=== PATIENT | female | born 1980 | race Caucasian/White ===

== ENCOUNTER 2017-03-15 20:01 | Emergency (ER) | payer MEDICAID, SELFPAY ==
[2017-03-15 20:19] VITALS: BP 137/91; PULSE 105; RESP 20; TEMP 37.1; O2SAT 98; BMI 43.4
--- NOTE | 2017-03-15 20:27 | HMH.EDUTC ---
[facility] [place] Clinical Impression: Otitis media Qualifiers: Otitis media type: suppurative Chronicity: acute Laterality: right Recurrence: not specified as recurrent Spontaneous tympanic membrane rupture: without spontaneous rupture Qualified Code(s): H66.001 - Acute suppurative otitis media without spontaneous rupture of ear drum, right ear Otitis externa Qualifiers: Otitis externa type: swimmer's ear Chronicity: acute Laterality: right Qualified Code(s): H60.331 - Swimmer's ear, right ear Disposition: Home, Self-Care Condition on Discharge: Good Instructions: DI for Otitis Externa Prescriptions: Ciprofloxacin HCl [Ciprofloxacin 0.2% Otic Soln] 0.25 ml OT BID 7 Days #14 applicatio cephALEXin [Keflex 500mg Cap] 500 mg PO Q6H 10 Days #40 cap Referrals: Eric Caraballo MD [Primary Care Provider] - Medical Decision Making - Medical Records Medical records reviewed: Yes: I reviewed the patient's medical records. Vital Signs: 03/15/17 20:19 Temperature 98.8 F Temperature Source Temporal Artery Scan Pulse Rate [Brachial] 105 H Respiratory Rate 20 Blood Pressure [Right Arm] 137/91 Blood Pressure Mean [Right Arm] 106 Blood Pressure Source [Right Arm] Automatic Cuff Blood Pressure Position [Right Arm] Supine 02 Sat by Pulse Oximetry 98 Oxygen Delivery Method Room Air - Robbie Inquiry Pt receiving controlled substance: No [place] - General Stated complaint: right ear pain Time Seen by Provider: 03/15/17 20:27 Mode of Arrival: Ambulatory Source of Information: Patient Limitations: No Limitations Description of Symptoms (Recalled from Triage Doc. by RN): RT EAR PAIN HEENT Symptoms (Recalled from RN notes): Yes Resp Symptoms (Recalled from RN notes): No Skin Symptoms (Recalled from RN notes): No MS Symptoms (Recalled from RN notes): No Functional Status (Recalled from RN notes): NA - History of Present Illness Provider Complaint: Right ear pain X 3 weeks. Completed course of Amoxicillin and felt better briefly. Right ear pain recurred for the past 3-4 days and has had fevers. Swelling and pain below right ear as well. Onset (ago): week(s) (3) Location: head Associated symptoms: fever/chills, malaise Treatments prior to arrival: none - Related Data Home Medications Medication Instructions Recorded Confirmed biotin 10,000 mcg capsule mcg PO 03/15/17 carvedilol 25 mg tablet 12.5 mg PO BID tab 03/15/17 ferrous sulfate 325 mg (65 mg 325 mg PO QDAY tab 03/15/17 iron) tablet gabapentin 100 mg capsule 100 mg PO QDAY 03/15/17 levothyroxine 25 mcg tablet 25 mcg PO QDAY tab 03/15/17 lisinopril 5 mg tablet 10 mg PO QDAY 03/15/17 magnesium 200 mg tablet 200 mg PO QDAY 03/15/17 metformin 500 mg tablet 500 mg PO BID 03/15/17 rivaroxaban 20 mg tablet 20 mg PO QDAY 03/15/17 simvastatin 20 mg tablet 20 mg PO QPM 03/15/17 spironolactone 25 mg tablet 12.5 mg PO QDAY tab 03/15/17 tramadol 50 mg tablet 50 mg PO Q6H PRN 03/15/17 vitamin B12 1,000 mcg-folic acid 1 lozenge SUBLINGUAL DAILY 03/15/17 400 mcg sublingual lozenge Previous Rx's Medication Instructions Recorded Ciprofloxacin HCl [Ciprofloxacin 0.25 ml OT BID 7 Days #14 03/15/17 0.2% Otic Soln] applicatio cephALEXin [Keflex 500mg Cap] 500 mg PO Q6H 10 Days #40 cap 03/15/17 Allergies Allergy/AdvReac Type Severity Reaction Status Date / Time No Known Drug Allergies Allergy Unknown Verified 03/15/17 20:12 - Worker's Comp Is this a Worker's Comp case?: No [facility] History I have reviewed the patient's past medical history: Yes 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: Reports:: Anxiety, Diabetes Mellitus Type 2, Hyperlipidemia, Hypertension, Pulmonary Embolism Other 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: Reports: Hypothyroidism Other Surgeries: Yes: Appendectomy, Hysterectomy-Total, Other ([facility]) - *Social History Smoking Status: Never smoker Alcohol Intake: never - Psychiatric History Expresses thoughts of harming self/others: None Suicide Plan Description:
--- NOTE | 2017-03-15 20:31 | ED_ITS ---
[facility] [place] Clinical Impression: Otitis media Qualifiers: Otitis media type: suppurative Chronicity: acute Laterality: right Recurrence: not specified as recurrent Spontaneous tympanic membrane rupture: without spontaneous rupture Qualified Code(s): H66.001 - Acute suppurative otitis media without spontaneous rupture of ear drum, right ear Otitis externa Qualifiers: Otitis externa type: swimmer's ear Chronicity: acute Laterality: right Qualified Code(s): H60.331 - Swimmer's ear, right ear Disposition: Home, Self-Care Condition on Discharge: Good Instructions: DI for Otitis Externa Prescriptions: Ciprofloxacin HCl [Ciprofloxacin 0.2% Otic Soln] 0.25 ml OT BID 7 Days #14 applicatio cephALEXin [Keflex 500mg Cap] 500 mg PO Q6H 10 Days #40 cap Referrals: Eric Caraballo MD [Primary Care Provider] - Medical Decision Making - Medical Records Medical records reviewed: Yes: I reviewed the patient's medical records. Vital Signs: 03/15/17 20:19 Temperature 98.8 F Temperature Source Temporal Artery Scan Pulse Rate [Brachial] 105 H Respiratory Rate 20 Blood Pressure [Right Arm] 137/91 Blood Pressure Mean [Right Arm] 106 Blood Pressure Source [Right Arm] Automatic Cuff Blood Pressure Position [Right Arm] Supine 02 Sat by Pulse Oximetry 98 Oxygen Delivery Method Room Air - Robbie Inquiry Pt receiving controlled substance: No [facility] [place] - General Stated complaint: right ear pain Time Seen by Provider: 03/15/17 20:27 Mode of Arrival: Ambulatory Source of Information: Patient Limitations: No Limitations Description of Symptoms (Recalled from Triage Doc. by RN): RT EAR PAIN HEENT Symptoms (Recalled from RN notes): Yes Resp Symptoms (Recalled from RN notes): No Skin Symptoms (Recalled from RN notes): No MS Symptoms (Recalled from RN notes): No Functional Status (Recalled from RN notes): NA - History of Present Illness Provider Complaint: Right ear pain X 3 weeks. Completed course of Amoxicillin and felt better briefly. Right ear pain recurred for the past 3-4 days and has had fevers. Swelling and pain below right ear as well. Onset (ago): week(s) (3) Location: head Associated symptoms: fever/chills, malaise Treatments prior to arrival: none - Related Data Home Medications Medication Instructions Recorded Confirmed biotin 10,000 mcg capsule mcg PO 03/15/17 carvedilol 25 mg tablet 12.5 mg PO BID tab 03/15/17 ferrous sulfate 325 mg (65 mg 325 mg PO QDAY tab 03/15/17 iron) tablet gabapentin 100 mg capsule 100 mg PO QDAY 03/15/17 levothyroxine 25 mcg tablet 25 mcg PO QDAY tab 03/15/17 lisinopril 5 mg tablet 10 mg PO QDAY 03/15/17 magnesium 200 mg tablet 200 mg PO QDAY 03/15/17 metformin 500 mg tablet 500 mg PO BID 03/15/17 rivaroxaban 20 mg tablet 20 mg PO QDAY 03/15/17 simvastatin 20 mg tablet 20 mg PO QPM 03/15/17 spironolactone 25 mg tablet 12.5 mg PO QDAY tab 03/15/17 tramadol 50 mg tablet 50 mg PO Q6H PRN 03/15/17 vitamin B12 1,000 mcg-folic acid 1 lozenge SUBLINGUAL DAILY 03/15/17 400 mcg sublingual lozenge Previous Rx's Medication Instructions Recorded Ciprofloxacin HCl [Ciprofloxacin 0.25 ml OT BID 7 Days #14 03/15/17 0.2% Otic Soln] applicatio cephALEXin [Keflex 500mg Cap] 500 mg PO Q6H 10 Days #40 cap 03/15/17 Allerg
== END 2017-03-15 20:43 | disposition home or self-care (01) ==
PROVIDERS: Emergency Provider Physician Assistant; Family Provider Nurse Practitioner; PCP Family Medicine
DX: H66.001 Acute suppurative otitis media without spontaneous rupture of ear drum, right ear (principal); H60.331 Swimmer's ear, right ear; F41.9 Anxiety disorder, unspecified; E11.9 Type 2 diabetes mellitus without complications; I10 Essential (primary) hypertension; E03.9 Hypothyroidism, unspecified; E78.5 Hyperlipidemia, unspecified; Z79.84 Long term (current) use of oral hypoglycemic drugs; Z79.899 Other long term (current) drug therapy; Z79.01 Long term (current) use of anticoagulants; Z86.711 Personal history of pulmonary embolism; Z79.891 Long term (current) use of opiate analgesic
CPT/HCPCS: 99202

== ENCOUNTER → 2017-03-20 07:53 | Outpatient (CLI) | payer MEDICAID, SELFPAY ==
[2017-03-20 09:05] LABS: Alanine Aminotransferase 67 U/L (12-78); Albumin Level 3.8 gm/dL (3.4-5.0); Alkaline Phosphatase 169 U/L (46-116); Aspartate Amino Transferase 36 U/L (15-37); Bilirubin,Direct 0.2 mg/dL (0.0-0.2); Bilirubin,Total 0.7 mg/dL (0.2-1.0); Cholesterol 190 mg/dL (140-200); Free T4 (Free Thyroxine) 1.14 ng/dl (0.76-1.46); HDL Cholesterol 47 mg/dL (29-89); LDL Cholesterol 106 mg/dL (0-130); Thyroid Stimulating Hormone 3.63 uIU/ml (0.358-3.740); Total Protein,Serum 8.1 gm/dL (6.4-8.2); Triglycerides 185 mg/dL (30-200); VLDL Cholesterol 37 mg/dL (0-40)
[2017-03-20 09:22] LABS: Basophils # 0.1 K/mm3 (0-0.2); Basophils % 0.6 % (0.1-2.0); Eosinophils # 0.3 K/mm3 (0.0-0.4); Eosinophils % 4.2 % (0.1-12.0); Hematocrit 45.5 % (37.0-47.0); Lymphocytes # 1.9 K/mm3 (0.7-4.5); Lymphocytes % 23.5 K/mm3 (10-50); Mean Corpuscular Hemoglobin 26.6 pg (27.0-31.2); Mean Corpuscular Volume 80.7 fl (81-99); Mean Platelet Volume 7.8 fl (7.4-10.4); Monocytes # 0.6 K/mm3 (0.1-1.0); Monocytes % 7.5 % (1.7-9.3); Neutrophils # 5.2 K/mm3 (1.8-7.8); Neutrophils % 64.2 % (37.0-80.0); Platelet Count 309 K/mm3 (142-424); Red Blood Count 5.64 M/mm3 (4.20-5.40); Red Cell Distribution Width 13.3 % (11.5-17.5); White Blood Count 8.1 K/mm3 (4.8-10.8)
== END ==
PROVIDERS: PCP Family Medicine; Visit Provider Internal Medicine
DX: I44.7 Left bundle-branch block, unspecified (principal); R07.9 Chest pain, unspecified
CPT/HCPCS: 36415; 80061; 80076; 84439; 84443; 85025

== ENCOUNTER → 2017-03-21 07:46 | Outpatient (CLI) | payer MEDICAID, SELFPAY ==
--- NOTE | 2017-03-21 08:11 | CA_ITS ---
PROCEDURE: 2-D M-mode and color Doppler study INDICATIONS FOR THE TEST: Chest painx COPD Heart Murmur Tobacco Smoking Palpitations Fatigue Syncope Edema Hypertension Diabetes Mellitus Rheumatic Fever SOB KELLEY Obesity Hyperlipidemia Family History HD Additional History LBBB, CHF, Pulmonary embolism in 2011 Tech comments: Reduced EF with Global hypokinesis, dilated cardiomyopathy, left ventricular enlargement PATIENT INFORMATION HEIGHT: 5'3'' WEIGHT: 246 GENDER: Female B/P: 122/90 2-D/M-MODE INTERPRETATION: 2-D MEASUREMENTS OBSERVED VALUES IN CMS Right Ventricular Dimension (RVDd) 2.2 Interventricular Septum (Thickness)(IVsd) 0.9 Left Ventricular Internal Dimensions(LVIDd) 6.1 Left Ventricular Posterior Wall (Thickness)(LVPWd) 1.1 Aortic Root 3.0 Aortic Cusp Separation 1.9 Left Atrial Dimensions (LAD) 3.8 2D 1. Left atrium is mildly enlarged, left ventricle is mildly dilated, visually estimated ejection fraction approximately 25-30%, left ventricle appears to be globally hypokinetic. Endocardial surface of very poorly visualized. 2. The right atrium and right ventricle are normal size and contractility. 3. The aortic valve is minimally thickened and fibrosed. 4. The mitral and tricuspid valvular grossly normal. 5. The pulmonic valve is poorly visualized. 6. No significant pericardial effusion noted. DOPPLER INTERROGATION: Doppler interrogation of the aortic, mitral and tricuspid valvular presence of mild mitral and tricuspid regurgitation, tricuspid and jet velocity is insufficient for calculation of the right ventricular systolic pressure, grade 1 diastolic dysfunction seen with tissue Doppler evidence of raised left atrial pressure. CONCLUSION: 1. Technically very difficult study because of the patient's factor and poor acoustic windows, endocardial surfaces are very poorly visualized. 2. Mildly enlarged left atrium, mildly dilated left ventricle, severely reduced left ventricular systolic function, visually estimated ejection fraction 45-30%, left ventricle is globally hypokinetic. Grade 1 diastolic dysfunction seen with tissue Doppler evidence of raised left atrial pressure. 3. Mild mitral and tricuspid regurgitation. 4. No significant pericardial effusion noted.
== END ==
PROVIDERS: Family Provider Nurse Practitioner; PCP Family Medicine; Visit Provider Internal Medicine
DX: I44.7 Left bundle-branch block, unspecified (principal)
CPT/HCPCS: 93306

== ENCOUNTER → 2017-04-02 07:20 | Outpatient (CLI) | payer MEDICAID, SELFPAY ==
[2017-04-02 08:40] LABS: Anion Gap 14.1 mEq/L (5-15); Blood Urea Nitrogen 8 mg/dL (7-18); Carbon Dioxide 28 mmol/L (21.0-32.0); Chloride 100 mmol/L (98-107); Creatinine,Serum 0.65 mg/dL (0.55-1.02); Estimated Glomerular Filt Rate 103 ml/min (>60); GFR (African American) 124 ML/MIN (>60); Glucose 306 mg/dL (74-106); Potassium 4.1 mmoL/L (3.5-5.1); Sodium 138 mmol/L (136-145)
[2017-04-02 09:26] LABS: Basophils # 0.1 K/mm3 (0-0.2); Basophils % 0.4 % (0.1-2.0); Eosinophils # 0.4 K/mm3 (0.0-0.4); Eosinophils % 3.7 % (0.1-12.0); Hematocrit 41.8 % (37.0-47.0); Hemoglobin 13.6 g/dL (12.2-16.2); Lymphocytes # 2.4 K/mm3 (0.7-4.5); Lymphocytes % 22.1 K/mm3 (10-50); Mean Corpuscular HGB Conc 32.6 g/dL (31.8-35.4); Mean Corpuscular Hemoglobin 26.8 pg (27.0-31.2); Mean Corpuscular Volume 82.3 fl (81-99); Mean Platelet Volume 7.9 fl (7.4-10.4); Monocytes # 0.6 K/mm3 (0.1-1.0); Neutrophils # 7.3 K/mm3 (1.8-7.8); Neutrophils % 67.8 % (37.0-80.0); Platelet Count 300 K/mm3 (142-424); Red Blood Count 5.08 M/mm3 (4.20-5.40); Red Cell Distribution Width 13.4 % (11.5-17.5); White Blood Count 10.8 K/mm3 (4.8-10.8)
== END ==
PROVIDERS: Internal Medicine; PCP Family Medicine; Visit Provider Internal Medicine Cardiovascular Disease
DX: I42.9 Cardiomyopathy, unspecified (principal); I10 Essential (primary) hypertension
CPT/HCPCS: 36415; 80048; 83880; 85025; 93225; 93226

== ENCOUNTER → 2017-04-16 09:53 | Outpatient (CLI) | payer MEDICAID, SELFPAY ==
[2017-04-16 11:06] LABS: Anion Gap 10.9 mEq/L (5-15); Blood Urea Nitrogen 6 mg/dL (7-18); Carbon Dioxide 30 mmol/L (21.0-32.0); Chloride 100 mmol/L (98-107); Creatinine,Serum 0.61 mg/dL (0.55-1.02); Estimated Glomerular Filt Rate 110 ml/min (>60); GFR (African American) 134 ML/MIN (>60); Glucose 201 mg/dL (74-106); Potassium 3.9 mmoL/L (3.5-5.1); Sodium 137 mmol/L (136-145)
== END ==
PROVIDERS: Physician Assistant; PCP Family Medicine; Visit Provider Internal Medicine
DX: I42.9 Cardiomyopathy, unspecified (principal); R42 Dizziness and giddiness; I50.9 Heart failure, unspecified
CPT/HCPCS: 36415; 80048

== ENCOUNTER → 2017-05-24 14:59 | Outpatient (CLI) | payer MEDICAID, SELFPAY | PROVIDERS: Visit Provider Internal Medicine Cardiovascular Disease | DX: I42.0 Dilated cardiomyopathy (principal); R60.9 Edema, unspecified; I10 Essential (primary) hypertension; E78.2 Mixed hyperlipidemia; E66.01 Morbid (severe) obesity due to excess calories; Z86.711 Personal history of pulmonary embolism; I51.9 Heart disease, unspecified; R42 Dizziness and giddiness; R06.09 Other forms of dyspnea | CPT/HCPCS: 36415; 83880 ==

== ENCOUNTER → 2017-05-27 13:28 | Outpatient (CLI) | payer MEDICAID, SELFPAY ==
--- NOTE | 2017-05-27 13:31 | NM_ITS ---
NM muga Indication for the test: Coronary artery disease, obesity hypertension shortness of breath evaluate left ventricular systolic function. Procedure: Patient received total of 25.7 mCi of sodiumpretechnitate, resting MUGA scan was performed with standard view. Results: Resting cardiac MUGA scan shows an ejection fraction of 26% with left ventricular global hypokinesis.
--- NOTE | 2017-05-27 15:39 | HMH.ITSHM ---
XERELTO CARVEDILOL INTRESTO SIMVASTATIN SPIRALACTONE METFORMIN LEVOTHYROXINE GABAPENTIN TRAMADOL BYOTIN
== END ==
PROVIDERS: Family Provider Nurse Practitioner; PCP Family Medicine; Visit Provider Internal Medicine Cardiovascular Disease
DX: Z86.711 Personal history of pulmonary embolism (principal); I51.9 Heart disease, unspecified; R06.09 Other forms of dyspnea; I42.0 Dilated cardiomyopathy; R60.9 Edema, unspecified; I10 Essential (primary) hypertension; I11.9 Hypertensive heart disease without heart failure; E78.2 Mixed hyperlipidemia; E66.01 Morbid (severe) obesity due to excess calories; R42 Dizziness and giddiness
CPT/HCPCS: 78473; A9512; A9560

== ENCOUNTER → 2017-07-12 10:03 | Outpatient (CLI) | payer MEDICAID, SELFPAY ==
[2017-07-12 10:40] LABS: Anion Gap 13.4 mEq/L (5-15); Blood Urea Nitrogen 12 mg/dL (7-18); Carbon Dioxide 27 mmol/L (21.0-32.0); Chloride 98 mmol/L (98-107); Creatine Kinase 35 U/L (26-192); Creatinine,Serum 0.72 mg/dL (0.55-1.02); Estimated Glomerular Filt Rate 91 ml/min (>60); GFR (African American) 110 ML/MIN (>60); Glucose 254 mg/dL (74-106); Potassium 4.4 mmoL/L (3.5-5.1); Sodium 134 mmol/L (136-145)
== END ==
PROVIDERS: Visit Provider Internal Medicine Cardiovascular Disease
DX: I42.0 Dilated cardiomyopathy (principal)
CPT/HCPCS: 36415; 80048; 82550

== ENCOUNTER 2017-08-19 10:09 | Emergency (ER) | payer MEDICAID, SELFPAY ==
[2017-08-19 10:19] VITALS: BP 135/87; PULSE 85; RESP 20; TEMP 36.5; O2SAT 99; BMI 46.0
--- NOTE | 2017-08-19 10:23 | HMH.EDUTC ---
[facility] [place]: Otitis media Qualifiers: Otitis media type: unspecified Laterality: left Qualified Code(s): H66.92 - Otitis media, unspecified, left ear Disposition: Home, Self-Care Condition on Discharge: Good Instructions: Middle Ear Infection Additional Instructions: Take medication as prescribed Follow up with family doctor if no improvement or worsening of symptoms in next 24-48 hours Return if needed Over the counter Motrin or Tylenol as needed for pain or fever Straight to ER if any life threatening symptoms Prescriptions: Cefdinir [Omnicef 300mg Capsule] 300 mg PO BID #20 cap Referrals: Eric Caraballo MD [Primary Care Provider] - As needed Time of Disposition: 10:33 Medical Decision Making - Medical Records Medical records reviewed: Yes: I reviewed the patient's medical records. - Robbie Inquiry Pt receiving controlled substance: No Robbie was queried for this patient: No Vital Signs: 08/19/17 10:19 Temperature 97.7 F Temperature Source Temporal Artery Scan Pulse Rate [Brachial] 85 Respiratory Rate 20 Blood Pressure [Right Arm] 135/87 Blood Pressure Mean [Right Arm] 103 02 Sat by Pulse Oximetry 99 - Reevaluation(s) Time: 10:32 Reevaluation #1: Over last month and 1/2 Patient has been on both Amoxicillin and Augmentin for left otitis media and ear infection returned after completing medication. Decision to change medication Cefdir to see if this medication would work on clearing up infection due to treatment in last month [facility] [place] General Stated complaint: Left ear hurting Time Seen by Provider: 08/19/17 10:24 Mode of Arrival: Ambulatory Source of Information: Patient Limitations: No Limitations Description of Symptoms (Recalled from Triage Doc. by RN): LEFT EAR PAIN, WAS TX IN JULY FOR EAR INFECTION. HEENT Symptoms (Recalled from RN notes): Yes Resp Symptoms (Recalled from RN notes): No Skin Symptoms (Recalled from RN notes): No MS Symptoms (Recalled from RN notes): No Functional Status (Recalled from RN notes): NA - History of Present Illness Provider Complaint: Patient state that she is having pain again in her left ear State that she was diagnosed and treated around the first of July for ear infection State that she has started having pain in ear again and running a slight fever just like she did the last time she had an infection - Related Data Home Medications Medication Instructions Recorded Confirmed biotin 10,000 mcg capsule 10,000 mcg PO DAILY 03/15/17 07/28/17 levothyroxine 25 mcg tablet 25 mcg PO QDAY tab 03/15/17 07/28/17 rivaroxaban 20 mg tablet 20 mg PO QDAY 03/15/17 07/28/17 simvastatin 20 mg tablet 20 mg PO QPM 03/15/17 07/28/17 spironolactone 25 mg tablet 12.5 mg PO QDAY tab 03/15/17 07/28/17 tramadol 50 mg tablet 50 mg PO Q6H PRN 03/15/17 07/28/17 gabapentin 100 mg capsule 300 mg PO QDAY cap 03/19/17 07/28/17 metformin 500 mg tablet 500 mg PO QDAY tab 03/19/17 07/28/17 Carvedilol [Carvedilol 25mg Tab] 25 mg PO BID 06/11/17 07/28/17 Sacubitril/Valsartan [Entresto 49 1 tab PO BID 06/11/17 07/28/17 mg-51 mg Tablet] Previous Rx's Medication Instructions Recorded Cefdinir [Omnicef 300mg Capsule] 300 mg PO BID #20 cap 08/19/17 Allergies Allergy/AdvReac Type Severity Reaction Status Date / Time No Known Drug Allergies Allergy Unknown Verified 08/12/17 09:11 - Worker's Comp Is this a Worker's Comp case?: No [facility] History I have reviewed the patient's past medical history: Yes 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: Reports:: Anxiety, Diabetes Mellitus Type 2, Hyperlipidemia, Hypertension, Pulmonary Embolism Denies:: Cancer, Diabetes Mellitus Type 1, Internal Pacemaker, MRSA, Seizures Other 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: Reports: Hypothyroidism. Denies: Blood Transfusion Reaction Other Surgeries: Yes: Appendectomy, Hysterectomy-Total, Other. No: Pacemaker Amputation: No Fractures: No - Social History Smoking Status: Never smoker Alcohol Intake: nev
--- NOTE | 2017-08-19 10:29 | ED_ITS ---
[facility] [place] Clinical Impression: Otitis media Qualifiers: Otitis media type: unspecified Laterality: left Qualified Code(s): H66.92 - Otitis media, unspecified, left ear Disposition: Home, Self-Care Condition on Discharge: Good Instructions: Middle Ear Infection Additional Instructions: Take medication as prescribed Follow up with family doctor if no improvement or worsening of symptoms in next 24-48 hours Return if needed Over the counter Motrin or Tylenol as needed for pain or fever Straight to ER if any life threatening symptoms Prescriptions: Cefdinir [Omnicef 300mg Capsule] 300 mg PO BID #20 cap Referrals: Eric Caraballo MD [Primary Care Provider] - As needed Time of Disposition: 10:33 Medical Decision Making - Medical Records Medical records reviewed: Yes: I reviewed the patient's medical records. - Robbie Inquiry Pt receiving controlled substance: No Robbie was queried for this patient: No Vital Signs: 08/19/17 10:19 Temperature 97.7 F Temperature Source Temporal Artery Scan Pulse Rate [Brachial] 85 Respiratory Rate 20 Blood Pressure [Right Arm] 135/87 Blood Pressure Mean [Right Arm] 103 02 Sat by Pulse Oximetry 99 - Reevaluation(s) Time: 10:32 Reevaluation #1: Over last month and 1/2 Patient has been on both Amoxicillin and Augmentin for left otitis media and ear infection returned after completing medication. Decision to change medication Cefdir to see if this medication would work on clearing up infection due to treatment in last month [facility] [place] - General Stated complaint: Left ear hurting Time Seen by Provider: 08/19/17 10:24 Mode of Arrival: Ambulatory Source of Information: Patient Limitations: No Limitations Description of Symptoms (Recalled from Triage Doc. by RN): LEFT EAR PAIN, WAS TX IN JULY FOR EAR INFECTION. HEENT Symptoms (Recalled from RN notes): Yes Resp Symptoms (Recalled from RN notes): No Skin Symptoms (Recalled from RN notes): No MS Symptoms (Recalled from RN notes): No Functional Status (Recalled from RN notes): NA - History of Present Illness Provider Complaint: Patient state that she is having pain again in her left ear State that she was diagnosed and treated around the first of July for ear infection State that she has started having pain in ear again and running a slight fever just like she did the last time she had an infection - Related Data Home Medications Medication Instructions Recorded Confirmed biotin 10,000 mcg capsule 10,000 mcg PO DAILY 03/15/17 07/28/17 levothyroxine 25 mcg tablet 25 mcg PO QDAY tab 03/15/17 07/28/17 rivaroxaban 20 mg tablet 20 mg PO QDAY 03/15/17 07/28/17 simvastatin 20 mg tablet 20 mg PO QPM 03/15/17 07/28/17 spironolactone 25 mg tablet 12.5 mg PO QDAY tab 03/15/17 07/28/17 tramadol 50 mg tablet 50 mg PO Q6H PRN 03/15/17 07/28/17 gabapentin 100 mg capsule 300 mg PO QDAY cap 03/19/17 07/28/17 metformin 500 mg tablet 500 mg PO QDAY tab 03/19/17 07/28/17 Carvedilol [Carvedilol 25mg Tab] 25 mg PO BID 06/11/17 07/28/17 Sacubitril/Valsartan [Entresto 49 1 tab PO BID 06/11/17 07/28/17 mg-51 mg Tablet] Previous Rx's Medication Instructions Recorded Cefdinir [Omnicef 300mg Capsule] 300 mg PO BID #20 cap 08/19/17 Allergies Allergy/AdvReac Type Severity Reaction Status Date / Time No Known Drug Allergies All
[2017-08-19 10:34] VITALS: BP 135/87; PULSE 85; RESP 20; TEMP 36.5; O2SAT 99
== END 2017-08-19 10:35 | disposition home or self-care (01) ==
PROVIDERS: Emergency Provider Nurse Practitioner; Family Provider Nurse Practitioner; PCP Family Medicine
DX: H66.92 Otitis media, unspecified, left ear (principal); E11.9 Type 2 diabetes mellitus without complications; Z79.84 Long term (current) use of oral hypoglycemic drugs; I10 Essential (primary) hypertension; E78.5 Hyperlipidemia, unspecified; E03.9 Hypothyroidism, unspecified; Z86.711 Personal history of pulmonary embolism
CPT/HCPCS: 99201

== ENCOUNTER → 2017-09-10 09:19 | Outpatient (CLI) | payer MEDICAID, SELFPAY ==
[2017-09-10 11:06] LABS: Hemoglobin A1C 9.3 % (0.0-7.0)
[2017-09-10 11:30] LABS: Alanine Aminotransferase 49 U/L (12-78); Albumin Level 3.6 gm/dL (3.4-5.0); Albumin/Globulin Ratio 0.9 (1.1-1.8); Alkaline Phosphatase 147 U/L (46-116); Anion Gap 15.1 mEq/L (5-15); Aspartate Amino Transferase 18 U/L (15-37); Bilirubin,Total 0.6 mg/dL (0.2-1.0); Blood Urea Nitrogen 16 mg/dL (7-18); Calcium 9.2 mg/dL (8.5-10.1); Carbon Dioxide 26 mmol/L (21.0-32.0); Chloride 100 mmol/L (98-107); Creatinine,Serum 0.78 mg/dL (0.55-1.02); Estimated Glomerular Filt Rate 83 ml/min (>60); GFR (African American) 101 ML/MIN (>60); Glucose 275 mg/dL (74-106); Potassium 4.1 mmoL/L (3.5-5.1); Sodium 137 mmol/L (136-145); Total Protein,Serum 7.6 gm/dL (6.4-8.2)
[2017-09-10 13:52] LABS: Erythrocyte Sedimentation Rate 45 mm/hr (0-20)
[2017-09-11 16:44] LABS: PTT-LA 48.7 sec (0.0-51.9)
[2017-09-12 09:10] LABS: RA Latex Turbid. 21.4 IU/mL (0.0-13.9)
[2017-09-13 17:08] LABS: Lupus Reflex Interpretation Comment: (.)
[2017-09-14 06:20] LABS: dRVVT Confirm 2.4; dRVVT Mix 90.3
== END ==
PROVIDERS: Visit Provider Nurse Practitioner Family
DX: M25.50 Pain in unspecified joint (principal); E11.9 Type 2 diabetes mellitus without complications
CPT/HCPCS: 36415; 80053; 83036; 85613; 85651; 86431

== ENCOUNTER 2017-10-24 09:00 | Outpatient (RCR) | payer MEDICAID, SELFPAY ==
--- NOTE | 2017-09-23 08:55 | HMH.OTOPEV ---
OT Inpatient Evaluation Rehab OT Outpatient Eval Start: 09/23/17 08:45 Freq: Status: Active Protocol: Document 09/23/17 08:45 RMARSHALL (Rec: 09/23/17 08:55 [id number] Electronically Signed By Cinthia Oquendo OT 09/23/17 08:45 Outpatient Therapy Subjective History Subjective History Pt is a 36 year old female who reports to therapy for initial evaluation to right elbow. Pt informed therapist she began having pain and decreased motion/strength in March,. 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 Pt demonstrates with slight decreased AROM and Strength at right elbow as well as palpation tenderness. Pt will continue to be seen in order to address these deficits. 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 Work/Reading Driving Sleeping Recreation Activity Symptom Description Constant but Variable Level of pain today (0-10) 6 Pain scale - at its best (0-10) 3 Pain scale - at its worst (0-10) 10 Shoulder/Elbow Eval Shoulder Objective Measurements Elbow Objective Measurements Elbow ROM Right full ROM elbow exam standard left decreased ROM elbow exam standard right pain with active ROM elbow exam standard right pain with passive ROM elbow exam right standard Elbow Extension Active Range of Motion ( 0 degrees degrees) Elbow Flexion Active Range of Motion ( 115 degrees degrees) Elbow Pronation of Forearm Range of 90 degrees Motion (degrees) Elbow Supination of Forearm Range of 90 degrees Motion (degrees) Left full ROM elbow exam standard left decrease
== END 2017-10-24 09:01 | disposition home or self-care (01) ==
LOC: OT 09:00
PROVIDERS: Family Provider Nurse Practitioner; PCP Family Medicine; Visit Provider Nurse Practitioner Family
DX: M70.21 Olecranon bursitis, right elbow (principal)
CPT/HCPCS: 97033; 97035; 97140; 97166

== ENCOUNTER → 2017-11-18 09:45 | Outpatient (POV) | payer OTHER, MEDICAID, SELFPAY ==
[2017-11-18 09:52] VITALS: BP 106/61; PULSE 92; RESP 18; O2SAT 98
--- NOTE | 2017-11-18 10:29 | XR_ITS ---
XR elbow RT min 3V HISTORY: Injury with pain ITS.REASON: ELBOW PAIN ORDERING PHYSICIAN: Taniya Choudhary PATIENT AGE: 37 years COMPARISON: None FINDINGS: BONY STRUCTURES: No fracture or dislocation. No lytic or blastic change. Normal mineralization. SOFT TISSUES: Unremarkable. No radio opaque foreign bodies. No displaced fat pad. JOINT SPACE: Well-preserved. No significant arthritic changes evident. IMPRESSION: Negative elbow.
--- NOTE | 2017-11-18 12:26 | HMH.PMCON ---
Assessment and Plan (1) Epicondylitis Current visit: Yes Status: Chronic Category: Medical - Assessment and plan all Dx Assessment and Plan for all problems:: We will send the patient for an x-ray today. We will also set her up for an epicondyle injection. I will follow-up with the patient after her injection. This note was dictated using voice recognition software and may contain errors or omissions HPI - Data of Consult Consult date: 11/18/17 Requesting Physician: Taniya Choudhary APRN Primary Care Provider: Eric Caraballo MD Family Provider: Michelle Kahn - Consult Narrative Reason for consult: Right elbow pain History of present illness: Ms. Smith is a 37 year old female since today for consultation in regards to her right elbow pain. Patient states her pain today as a 5 out of 10. Patient states lifting makes pain worse while resting decreases the pain. Patient's tried and failed physical therapy with massage therapy and bracing. Patient states she is tried and failed anti-inflammatories for several months. Patient states that the pain is on the outside of her elbow. All movement makes it worse. Patient does have some noted swelling in this area. Patient does not remember any trauma or repetitive motion that could have caused this. Patient is on Xarelto. Patient has a pacemaker/defibrillator. Patient interested in injective therapy. CC: Taniya Choudhary APRN [facility] History I have reviewed the patient's past medical history: Yes 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: Reports:: Anxiety, Arrhythmia, Diabetes Mellitus Type 2, Hyperlipidemia, Hypertension, Internal Pacemaker, Palpitations, Pulmonary Embolism Denies:: Cancer, Diabetes Mellitus Type 1, MRSA, Seizures Other 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: Reports: Hypothyroidism. Denies: Blood Transfusion Reaction Other Surgeries: Yes: Appendectomy, Hysterectomy-Total, Pacemaker, Other Amputation: No Fractures: No - *Social History Smoking Status: Never smoker Alcohol Intake: never Alcohol Intake Frequency:: other Occupational Status: other Housing: house Household Members: spouse - Psychiatric History Expresses thoughts of harming self/others: None Suicide Plan Description: No Plan Pschychiatric History:: Reports:: Anxiety *Family Hx:: Diabetes, Hypertension Review of Systems - Review of Systems ROS General: no recent weight change, no fever, no sleep disturbances Respiratory: no cough, no shortness of air, no recurring pulmonary infections Cardiovascular/Peripheral Vascular: No chest pain, No palpitations, no edema, no shortness of breath. Gastrointestinal: no incontinence, normal bowel movements reported Genitourinary: no incontinence Musculoskeletal: Elbow pain right side Psychiatric: normal mood/ affect, Neurological: [denies weakness in extremities], [denies balance issues] Meds Home Medications Medication Instructions Recorded Confirmed Type biotin 10,000 mcg capsule 10,000 mcg PO DAILY 03/15/17 07/28/17 History levothyroxine 25 mcg tablet 25 mcg PO QDAY tab 03/15/17 07/28/17 History rivaroxaban 20 mg tablet 20 mg PO QDAY 03/15/17 07/28/17 History simvastatin 20 mg tablet 20 mg PO QPM 03/15/17 07/28/17 History spironolactone 25 mg tablet 12.5 mg PO QDAY tab 03/15/17 07/28/17 History tramadol 50 mg tablet 50 mg PO Q6H PRN 03/15/17 07/28/17 History gabapentin 100 mg capsule 300 mg PO QDAY cap 03/19/17 07/28/17 History Carvedilol [Carvedilol 25mg Tab] 25 mg PO BID 06/11/17 07/28/17 History metformin 500 mg tablet 1,000 mg PO QDAY tab 10/21/17 History sitagliptin 100 mg tablet 100 mg PO DAILY 10/21/17 History Allergies Allergy/AdvReac Type Severity Reaction Status Date / Time No Known Drug Allergies Allergy Unknown Verified 10/21/17 09:10 Objective Vital signs: Pulse Resp BP Pulse Ox 92 H 18 106/61 98 11/18/17 09:52 11/18/17 09:52 11/18/17 09:52 11/18/17 09:52 Narrative: Physical Exam General: Alert an
--- NOTE | 2017-11-18 12:29 | P.CONS_ITS ---
Assessment and Plan (1) Epicondylitis Current visit: Yes Status: Chronic Category: Medical - Assessment and plan all Dx Assessment and Plan for all problems:: We will send the patient for an x-ray today. We will also set her up for an epicondyle injection. I will follow-up with the patient after her injection. This note was dictated using voice recognition software and may contain errors or omissions HPI - Data of Consult Consult date: 11/18/17 Requesting Physician: Taniya Choudhary APRN Primary Care Provider: Eric Caraballo MD Family Provider: Michelle Kahn - Consult Narrative Reason for consult: Right elbow pain History of present illness: Ms. Smith is a 37 year old female since today for consultation in regards to her right elbow pain. Patient states her pain today as a 5 out of 10. Patient states lifting makes pain worse while resting decreases the pain. Patient's tried and failed physical therapy with massage therapy and bracing. Patient states she is tried and failed anti-inflammatories for several months. Patient states that the pain is on the outside of her elbow. All movement makes it worse. Patient does have some noted swelling in this area. Patient does not remember any trauma or repetitive motion that could have caused this. Patient is on Xarelto. Patient has a pacemaker/defibrillator. Patient interested in injective therapy. CC: Taniya Choudhary APRN [facility] History I have reviewed the patient's past medical history: Yes 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: Reports:: Anxiety, Arrhythmia, Diabetes Mellitus Type 2, Hyperlipidemia, Hypertension, Internal Pacemaker, Palpitations, Pulmonary Embolism Denies:: Cancer, Diabetes Mellitus Type 1, MRSA, Seizures Other 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: Reports: Hypothyroidism. Denies: Blood Transfusion Reaction Other Surgeries: Yes: Appendectomy, Hysterectomy-Total, Pacemaker, Other Amputation: No Fractures: No - *Social History Smoking Status: Never smoker Alcohol Intake: never Alcohol Intake Frequency:: other Occupational Status: other Housing: house Household Members: spouse - Psychiatric History Expresses thoughts of harming self/others: None Suicide Plan Description: No Plan Pschychiatric History:: Reports:: Anxiety *Family Hx:: Diabetes, Hypertension Review of Systems - Review of Systems ROS General: no recent weight change, no fever, no sleep disturbances Respiratory: no cough, no shortness of air, no recurring pulmonary infections Cardiovascular/Peripheral Vascular: No chest pain, No palpitations, no edema, no shortness of breath. Gastrointestinal: no incontinence, normal bowel movements reported Genitourinary: no incontinence Musculoskeletal: Elbow pain right side Psychiatric: normal mood/ affect, Neurological: [denies weakness in extremities], [denies balance issues] Meds Home Medications Medication Instructions Recorded Confirmed Type biotin 10,000 mcg capsule 10,000 mcg PO DAILY 03/15/17 07/28/17 History levothyroxine 25 mcg tablet 25 mcg PO QDAY tab 03/15/17 07/28/17 History rivaroxaban 20 mg tablet 20 mg PO QDAY 03/15/17 07/28/17 History simvastatin 20 mg tablet 20 mg PO QPM 03/15/17 07/28/17 History spironolactone 25 mg tablet 12.5 mg PO QDAY tab 03/15/17 07/28/17 History tramadol 50 mg tablet 50 mg PO Q6H PRN 03/15/17 07/28/17 History gabapentin 100 mg capsule 300 mg PO QDAY cap 03/19/17 07/28/17 History Carvedilol [Carvedilo
== END ==
PROVIDERS: Family Provider Nurse Practitioner; PCP Family Medicine; Visit Provider Clinical Nurse Specialist Family Health
DX: M77.11 Lateral epicondylitis, right elbow (principal)
CPT/HCPCS: 73080; 99202

== ENCOUNTER → 2017-12-31 09:19 | Outpatient (POV) | payer BC, MEDICAID, SELFPAY ==
[2017-12-31 09:26] VITALS: BP 100/60; PULSE 79; RESP 18; O2SAT 98; BMI 44.1
--- NOTE | 2017-12-31 09:50 | HMH.PAINSOAP ---
[facility] Pain Management SOAP Note Subjective:: Patient is a pleasant 37-year-old white female who we are treating for right elbow pain. Patient received a epicondylar injection. Patient did not get much relief from this. Patient actually had another not appear in this area. Patient is still having a lot of numbness and tingling and burning in the area. Patient's x-ray was negative. We will send her for a CT scan. Patient unable to do an MRI due to her pacemaker. We will also try her on a compounding cream. She rates her pain a 6 out of 10. ROS General: no recent weight change, no fever, no sleep disturbances Respiratory: no cough, no shortness of air, no recurring pulmonary infections Cardiovascular/Peripheral Vascular: No chest pain, No palpitations, no edema, no shortness of breath. Gastrointestinal: no incontinence, normal bowel movements reported Genitourinary: no incontinence Musculoskeletal: Right elbow pain Psychiatric: normal mood/ affect Neurological: [denies weakness in extremities], [denies balance issues] Objective:: Physical Exam General: Alert and oriented x3, no acute distress, pleasant and cooperative, [on room air] Lungs: Resps E/U, Symmetrical chest expansion, Eyes: PERRL Musculoskeletal: Range of motion right elbow somewhat guarded secondary to pain, deep tendon reflexes normal, strength in upper and lower extremities [5/5], normal gait noted Neurological: speech clear, senior instructor equal, no gross sensory deficits Assessment:: Epicondylitis Plan:: We will send the patient for a CT scan of her right elbow. I will follow-up with her after this. We will also order compounded cream to see if this is beneficial to her. Patient's been instructed to call the office if she has any issues prior to next appointment. This note was dictated using voice recognition software and may contain errors or omissions
--- NOTE | 2017-12-31 09:53 | P.CONS_ITS ---
[facility] Pain Management SOAP Note Subjective:: Patient is a pleasant 37-year-old white female who we are treating for right elbow pain. Patient received a epicondylar injection. Patient did not get much relief from this. Patient actually had another not appear in this area. Patient is still having a lot of numbness and tingling and burning in the area. Patient's x-ray was negative. We will send her for a CT scan. Patient unable to do an MRI due to her pacemaker. We will also try her on a compounding cream. She rates her pain a 6 out of 10. ROS General: no recent weight change, no fever, no sleep disturbances Respiratory: no cough, no shortness of air, no recurring pulmonary infections Cardiovascular/Peripheral Vascular: No chest pain, No palpitations, no edema, no shortness of breath. Gastrointestinal: no incontinence, normal bowel movements reported Genitourinary: no incontinence Musculoskeletal: Right elbow pain Psychiatric: normal mood/ affect Neurological: [denies weakness in extremities], [denies balance issues] Objective:: Physical Exam General: Alert and oriented x3, no acute distress, pleasant and cooperative, [on room air] Lungs: Resps E/U, Symmetrical chest expansion, Eyes: PERRL Musculoskeletal: Range of motion right elbow somewhat guarded secondary to pain, deep tendon reflexes normal, strength in upper and lower extremities [5/5], normal gait noted Neurological: speech clear, line patroller equal, no gross sensory deficits Assessment:: Epicondylitis Plan:: We will send the patient for a CT scan of her right elbow. I will follow-up with her after this. We will also order compounded cream to see if this is b eneficial to her. Patient's been instructed to call the office if she has any issues prior to next appointment. This note was dictated using voice recognition software and may contain errors or omissions
== END ==
PROVIDERS: PCP Family Medicine; Visit Provider Clinical Nurse Specialist Family Health
DX: M77.11 Lateral epicondylitis, right elbow (principal)
CPT/HCPCS: 99213

== ENCOUNTER → 2018-01-20 10:06 | Outpatient (CLI) | payer BC, SELFPAY ==
[2018-01-20 11:32] LABS: Anion Gap 16.9 mEq/L (5-15); Blood Urea Nitrogen 8 mg/dL (7-18); Calcium 9.2 mg/dL (8.5-10.1); Carbon Dioxide 24 mmol/L (21.0-32.0); Chloride 100 mmol/L (98-107); Creatinine,Serum 0.63 mg/dL (0.55-1.02); Estimated Glomerular Filt Rate 106 ml/min (>60); GFR (African American) 128 ML/MIN (>60); Glucose 141 mg/dL (74-106); Potassium 3.9 mmoL/L (3.5-5.1); Sodium 137 mmol/L (136-145)
== END ==
PROVIDERS: Visit Provider Urology
DX: R06.09 Other forms of dyspnea (principal); I42.0 Dilated cardiomyopathy; E11.8 Type 2 diabetes mellitus with unspecified complications; E66.01 Morbid (severe) obesity due to excess calories; E78.2 Mixed hyperlipidemia; I10 Essential (primary) hypertension; I11.9 Hypertensive heart disease without heart failure; I51.9 Heart disease, unspecified; R00.2 Palpitations; R42 Dizziness and giddiness; R60.9 Edema, unspecified; Z86.711 Personal history of pulmonary embolism; Z95.810 Presence of automatic (implantable) cardiac defibrillator
CPT/HCPCS: 36415; 80048; 83880

== ENCOUNTER → 2018-01-22 07:13 | Outpatient (CLI) | payer BC, SELFPAY ==
--- NOTE | 2018-01-22 07:19 | CA_ITS ---
PROCEDURE: 2-D M-mode and color Doppler study INDICATIONS FOR THE TEST: Chest pain COPD Heart Murmur Tobacco Smoking Palpitations+ Fatigue Syncope Edema Hypertension+Diabetes Mellitus+ Rheumatic Fever SOB+KELLEY+Obesity+Hyperlipidemia+ Family History HD Additional History ICD PATIENT INFORMATION HEIGHT: 63 WEIGHT:263 GENDER: Female B/P:117/61 2-D/M-MODE INTERPRETATION: 2-D MEASUREMENTS OBSERVED VALUES IN CMS Right Ventricular Dimension (RVDd) 2.2 Interventricular Septum (Thickness)(IVsd) 1.0 Left Ventricular Internal Dimensions(LVIDd) 5.0 Left Ventricular Posterior Wall (Thickness)(LVPWd) 0.9 Aortic Root 3.2 Aortic Cusp Separation 2.0 Left Atrial Dimensions (LAD) 3.4 2D 1. Left atrium is mildly enlarged, left ventricle is normal size, mild concentric left ventricular hypertrophy, visually estimated ejection fraction approximately 45-50% with no regional wall motion abnormality, there is abnormal septal motion, endocardial surfaces are poorly visualized. 2. The right atrium and right ventricle are normal size and contractility, there is an ICD lead seen in the right ventricle. 3. The aortic valve is minimally thickened and fibrosed. 4. The mitral and tricuspid valvular grossly normal. 5. The pulmonic valve is poorly visualized. 6. No significant pericardial effusion noted DOPPLER INTERROGATION: Doppler interrogation of the aortic, mitral and tricuspid valvular presence of mild mitral and tricuspid regurgitation, calculated right ventricular systolic pressure is 40 mmHg consistent with mild pulmonary hypertension, diastolic parameters are inconclusive. CONCLUSION: 1. Mildly left atrium, normal left ventricular size, mild concentric left ventricular hypertrophy, visually estimated ejection fraction of 45-50%, there is abnormal septal motion, diastolic parameters are inconclusive. 2. Mild mitral and tricuspid regurgitation, calculated right ventricular systolic pressure is 40 mmHg consistent with mild pulmonary hypertension. 3. No significant pericardial effusion noted.
== END ==
PROVIDERS: PCP Family Medicine; Visit Provider Internal Medicine
DX: R06.00 Dyspnea, unspecified (principal); I42.0 Dilated cardiomyopathy; E11.8 Type 2 diabetes mellitus with unspecified complications; E66.01 Morbid (severe) obesity due to excess calories; E78.2 Mixed hyperlipidemia; I10 Essential (primary) hypertension; I11.9 Hypertensive heart disease without heart failure; I51.9 Heart disease, unspecified; R00.2 Palpitations; R42 Dizziness and giddiness; R60.9 Edema, unspecified; Z86.711 Personal history of pulmonary embolism; Z95.810 Presence of automatic (implantable) cardiac defibrillator
CPT/HCPCS: 93306

== ENCOUNTER → 2018-01-28 09:40 | Outpatient (POV) | payer BC, SELFPAY ==
[2018-01-28 10:09] VITALS: BP 140/66; PULSE 95; RESP 18; O2SAT 98; BMI 44.2
--- NOTE | 2018-01-28 10:30 | HMH.PAINSOAP ---
[facility] Pain Management SOAP Note Subjective:: Patient is a pleasant 37-year-old white female who we are treating for right elbow pain. Patient has had an epicondylar injection with no relief. Patient is having worsening pain radiating down her forearm and up into her bicep at times. I have some concerns in regards to her ulnar nerve. Patient needs a CT scan due to her inability to get an MRI because of her pacemaker. Patient is on compounding cream she states it takes the edge off however it did not help significantly with her pain. Patient's x-rays are negative. I will have some concerns of potential cysts in her forearm. Patient has tried and failed 6-8 weeks of physical therapy. Patient is continuing to do home stretching exercises. Patient's been on and failed anti-inflammatories, narcotic medications. She rates her pain today a 6 out of 10. ROS General: no recent weight change, no fever, no sleep disturbances Respiratory: no cough, no shortness of air, no recurring pulmonary infections Cardiovascular/Peripheral Vascular: No chest pain, No palpitations, no edema, no shortness of breath. Gastrointestinal: no incontinence, normal bowel movements reported Genitourinary: no incontinence Musculoskeletal: Right elbow pain Psychiatric: normal mood/ affect, Neurological: Weakness in right upper extremity at times, [denies balance issues] Objective:: Physical Exam General: Alert and oriented x3, no acute distress, pleasant and cooperative, [on room air] Lungs: Resps E/U, Symmetrical chest expansion, [CTA bilateral] Eyes: PERRL Musculoskeletal: Range of motion right arm guarded secondary to pain, deep tendon reflexes normal, strength in upper and lower extremities [5/5], [abnormal gait noted] Neurological: speech clear, left c d reactor operator greater than right c d reactor operator , no gross sensory deficits Assessment:: Right elbow pain Plan:: We will send her for CT scan to determine any possible cysts or issues with her ulnar nerve. Patient is unable to have an MRI due to her pacemaker. I will follow-up with her after the CT scan. This note was dictated using voice recognition software and may contain errors or omissions
--- NOTE | 2018-01-28 10:47 | P.CONS_ITS ---
[facility] Pain Management SOAP Note Subjective:: Patient is a pleasant 37-year-old white female who we are treating for right elbow pain. Patient has had an epicondylar injection with no relief. Patient is having worsening pain radiating down her forearm and up into her bicep at times. I have some concerns in regards to her ulnar nerve. Patient needs a CT scan due to her inability to get an MRI because of her pacemaker. Patient is on compounding cream she states it takes the edge off however it did not help significantly with her pain. Patient's x-rays are negative. I will have some concerns of potential cysts in her forearm. Patient has tried and failed 6-8 weeks of physical therapy. Patient is continuing to do home stretching exer cises. Patient's been on and failed anti-inflammatories, narcotic medications. She rates her pain today a 6 out of 10. ROS General: no recent weight change, no fever, no sleep disturbances Respiratory: no cough, no shortness of air, no recurring pulmonary infections Cardiovascular/Peripheral Vascular: No chest pain, No palpitations, no edema, no shortness of breath. Gastrointestinal: no incontinence, normal bowel movements reported Genitourinary: no incontinence Musculoskeletal: Right elbow pain Psychiatric: normal mood/ affect, Neurological: Weakness in right upper extremity at times, [denies balance issues] Objective:: Physical Exam General: Alert and oriented x3, no acute distress, pleasant and cooperative, [on room air] Lungs: Resps E/U, Symmetrical chest expansion, [CTA bilateral] Eyes: PERRL Musculoskeletal: Range of motion right arm guarded secondary to pain, deep tendon reflexes normal, strength in upper and lower extremities [5/5], [abnormal gait noted] Neurological: speech clear, left child protective investigator greater than right child protective investigator , no gross sensory deficits Assessment:: Right elbow pain Plan:: We will send her for CT scan to determine any possible cysts or issues with her ulnar nerve. Patient is unable to have an MRI due to her pacemaker. I will follow-up with her after the CT scan. This note was dictated using voice recognition software and may contain errors or omissions
== END ==
PROVIDERS: PCP Family Medicine; Visit Provider Clinical Nurse Specialist Family Health
DX: M25.521 Pain in right elbow (principal)
CPT/HCPCS: 99213

== ENCOUNTER → 2018-02-28 07:19 | Outpatient (CLI) | payer BC, SELFPAY | PROVIDERS: PCP Family Medicine; Visit Provider Clinical Nurse Specialist Family Health | DX: M25.521 Pain in right elbow (principal) ==

== ENCOUNTER → 2018-03-03 08:27 | Outpatient (CLI) | payer BC, SELFPAY ==
--- NOTE | 2018-03-03 08:29 | CT_ITS ---
CT elbow RT wo con INDICATION: ITS.REASON: RT ALBOW/ARM PAIN, 2 palpable areas in the right elbow marked with BBs ORDERING PHYSICIAN: Sebas Rivera MD PATIENT AGE: 37 years COMPARISON: None TECHNIQUE: Axial images are obtained without contrast. Sagittal and coronal reformatted images are reviewed as well. All CT scans at the facility use one or more dose reduction, viz: automated exposure control, ma/kV adjustment per patient size (including targeted exams where dose is matched to indication, i.e. head), or iterative reconstruction technique. FINDINGS: No bony or soft tissue mass is evident. There are BBs placed along the lateral aspect of the elbow. No soft tissue masses are evident the to the placed BB's. Specifically the muscles and subcutaneous tissues have an unremarkable appearance in these areas. No blastic or lytic process evident. No fracture or dislocation. The joint has an unremarkable appearance. No obvious effusion. IMPRESSION: Negative CT of the right elbow
== END ==
PROVIDERS: PCP Family Medicine; Visit Provider Anesthesiology
DX: M25.521 Pain in right elbow (principal)
CPT/HCPCS: 73200

== ENCOUNTER → 2018-03-11 09:46 | Outpatient (POV) | payer BC, SELFPAY ==
[2018-03-11 10:08] VITALS: BP 106/70; PULSE 93; RESP 18; O2SAT 98; BMI 44.1
--- NOTE | 2018-03-11 10:35 | HMH.PAINSOAP ---
[facility] Pain Management SOAP Note Subjective:: Pleasant 37-year-old white female who presents today for follow-up after CT of her right elbow. Patient is still having pain she rates an 8 out of 10. Patient and I had a long discussion in regards to the potential cause. I believe she may have some radial nerve syndrome. Patient has pain when extending the arm and flexing up the wrist along with pain holding onto something with an extended arm. When the radial nerve is compressed she has pain. Patient x-rays and CT scans have been fine there is no sign symptoms of tumors or any soft tissue swelling. Patient has seen Orth O in the past however was told that she had nothing to do surgery on. ROS General: no recent weight change, no fever, no sleep disturbances Respiratory: no cough, no shortness of air, no recurring pulmonary infections Cardiovascular/Peripheral Vascular: No chest pain, No palpitations, no edema, no shortness of breath. Gastrointestinal: no incontinence, normal bowel movements reported Genitourinary: no incontinence Musculoskeletal: Right elbow pain Psychiatric: normal mood/ affect Neurological: [denies weakness in extremities], [denies balance issues] Objective:: Physical Exam General: Alert and oriented x3, no acute distress, pleasant and cooperative, [on room air] Lungs: Resps E/U, Symmetrical chest expansion, Eyes: PERRL Musculoskeletal: Range of motion right elbow somewhat guarded secondary to pain, deep tendon reflexes normal, strength in upper and lower extremities [5/5], normal gait noted Neurological: speech clear, stand up comedian equal, no gross sensory deficits Assessment:: Right elbow pain Plan:: We will send her to occupational therapy along with a specialist who can determine if she has radial tunnel syndrome.. I will follow-up with her after this. This note was dictated using voice recognition software and may contain errors or omissions
--- NOTE | 2018-03-11 10:39 | P.CONS_ITS ---
[facility] Pain Management SOAP Note Subjective:: Pleasant 37-year-old white female who presents today for follow-up after CT of her right elbow. Patient is still having pain she rates an 8 out of 10. Patient and I had a long discussion in regards to the potential cause. I believe she may have some radial nerve syndrome. Patient has pain when exte nding the arm and flexing up the wrist along with pain holding onto something with an extended arm. When the radial nerve is compressed she has pain. Patient x-rays and CT scans have been fine there is no sign symptoms of tumors or any soft tissue swelling. Patient has seen Orth O in the past however was told that she had nothing to do surgery on. ROS General: no recent weight change, no fever, no sleep disturbances Respiratory: no cough, no shortness of air, no recurring pulmonary infections Cardiovascular/Peripheral Vascular: No chest pain, No palpitations, no edema, no shortness of breath. Gastrointestinal: no incontinence, normal bowel movements reported Genitourinary: no incontinence Musculoskeletal: Right elbow pain Psychiatric: normal mood/ affect Neurological: [denies weakness in extremities], [denies balance issues] Objective:: Physical Exam General: Alert and oriented x3, no acute distress, pleasant and cooperative, [on room air] Lungs: Resps E/U, Symmetrical chest expansion, Eyes: PERRL Musculoskeletal: Range of motion right elbow somewhat guarded secondary to pain, deep tendon reflexes normal, strength in upper and lower extremities [5/5], normal gait noted Neurological: speech clear, toe stripper equal, no gross sensory deficits Assessment:: Right elbow pain Plan:: We will send her to occupational therapy along with a specialist who can determine if she has radial tunnel syndrome.. I will follow-up with her after this. This note was dictated using voice recognition software and may contain errors or omissions
== END ==
PROVIDERS: PCP Family Medicine; Visit Provider Clinical Nurse Specialist Family Health
DX: M25.521 Pain in right elbow (principal)
CPT/HCPCS: 99213

== ENCOUNTER 2018-04-18 10:00 | Outpatient (RCR) | payer BC, SELFPAY ==
--- NOTE | 2018-03-14 10:52 | HMH.OTOPEV ---
OT Inpatient Evaluation Rehab OT Outpatient Eval Start: 03/14/18 10:29 Freq: Status: Active Protocol: Document 03/14/18 10:29 RMARSHALL (Rec: 03/14/18 10:52 [id number] Electronically Signed By Cinthia Padilla OT 03/14/18 10:29 Outpatient Therapy Subjective History Subjective History Pt is a 37 year old female reporting to therapy for evaluation to right UE. Pt was seen previously by therapist in October 2017 for right CTS and possible Lateral epicondylitis. Pt reports her pain began in August 2017 and has gradually become worse over time. Pt is now have pain above her elbow, into the shoulder and neck. Pt does demonstrate with decreased AROM at right shoulder, elbow and wrist as well as decreased strength. 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 Pt explains she is going to see [facility] next Saturday. Pt will continue to be seen twice a week in order to address these deficits. Right Shoulder AROM STG Flex: 155 degrees Abd: 160 degrees ER: 80 degrees IR: 6 degrees Right Shoulder MMT ST,4+/5 Right Shoulder MMT LT/5 Right Shoulder AROM LTG Flex: 170 degrees Abd: 170 degrees ER: 90 degrees IR: 80 degrees Right elbow AROM STG Flex: 120 degrees Sup: 75 degrees Right elbow AROM LTG Flex: 135 degrees Sup: 90 degrees Right elbow MMT ST,4+/5 Right elobw MMT LT/5 Right wrist AROM STG Flex: 45 degrees Ext: 45 degrees
== END 2018-04-18 10:05 | disposition home or self-care (01) ==
LOC: OT 10:00
PROVIDERS: Visit Provider Clinical Nurse Specialist Family Health
DX: G56.31 Lesion of radial nerve, right upper limb (principal)
CPT/HCPCS: 97035; 97110; 97140; 97166

== ENCOUNTER → 2018-05-08 10:38 | Outpatient (CLI) | payer BC, SELFPAY ==
[2018-05-08 11:45] LABS: Basophils # 0.1 K/mm3 (0-0.2); Basophils % 0.4 % (0.1-2.0); Eosinophils # 0.4 K/mm3 (0.0-0.4); Eosinophils % 3.2 % (0.1-12.0); Hematocrit 39.9 % (37.0-47.0); Hemoglobin 13.2 g/dL (12.2-16.2); Lymphocytes # 2.2 K/mm3 (0.7-4.5); Lymphocytes % 18.1 % (10-50); Mean Corpuscular HGB Conc 33.2 g/dL (31.8-35.4); Mean Corpuscular Hemoglobin 27.6 pg (27.0-31.2); Mean Corpuscular Volume 83.2 fl (81-99); Mean Platelet Volume 7.2 fl (7.4-10.4); Monocytes # 0.6 K/mm3 (0.1-1.0); Monocytes % 4.9 % (1.7-9.3); Neutrophils # 8.8 K/mm3 (1.8-7.8); Neutrophils % 73.3 % (37.0-80.0); Platelet Count 295 K/mm3 (142-424); Red Blood Count 4.79 M/mm3 (4.20-5.40); Red Cell Distribution Width 13.3 % (11.5-17.5)
[2018-05-08 12:16] LABS: Anion Gap 16.1 mEq/L (5-15); Blood Urea Nitrogen 9 mg/dL (7-18); Calcium 9.4 mg/dL (8.5-10.1); Carbon Dioxide 25 mmol/L (21.0-32.0); Chloride 101 mmol/L (98-107); Creatinine,Serum 0.56 mg/dL (0.55-1.02); Estimated Glomerular Filt Rate 121 ml/min (>60); GFR (African American) 147 ML/MIN (>60); Glucose 89 mg/dL (74-106); Potassium 4.1 mmoL/L (3.5-5.1); Sodium 138 mmol/L (136-145)
== END ==
PROVIDERS: Visit Provider Orthopaedic Surgery
DX: Z01.818 Encounter for other preprocedural examination (principal); G56.01 Carpal tunnel syndrome, right upper limb
CPT/HCPCS: 36415; 80048; 85025

== ENCOUNTER → 2018-08-13 10:37 | Outpatient (CLI) | payer BC, SELFPAY ==
[2018-08-13 11:00] LABS: Basophils % 0.4 % (0.1-2.0); Eosinophils # 0.3 K/mm3 (0.0-0.4); Eosinophils % 2.6 % (0.1-12.0); Hematocrit 38.6 % (37.0-47.0); Hemoglobin 12.4 g/dL (12.2-16.2); Lymphocytes # 1.2 K/mm3 (0.7-4.5); Lymphocytes % 11.6 % (10-50); Mean Platelet Volume 7.4 fl (7.4-10.4); Monocytes # 0.6 K/mm3 (0.1-1.0); Monocytes % 5.2 % (1.7-9.3); Neutrophils # 8.5 K/mm3 (1.8-7.8); Neutrophils % 80.3 % (37.0-80.0); Platelet Count 268 K/mm3 (142-424); Red Blood Count 4.95 M/mm3 (4.20-5.40); Red Cell Distribution Width 13.1 % (11.5-17.5); White Blood Count 10.6 K/mm3 (4.8-10.8)
[2018-08-13 12:48] LABS: Alanine Aminotransferase 44 U/L (12-78); Albumin Level 3.6 gm/dL (3.4-5.0); Alkaline Phosphatase 116 U/L (46-116); Anion Gap 15.3 mEq/L (5-15); Aspartate Amino Transferase 16 U/L (15-37); Bilirubin,Total 0.6 mg/dL (0.2-1.0); Blood Urea Nitrogen 8 mg/dL (7-18); Calcium 8.9 mg/dL (8.5-10.1); Carbon Dioxide 27 mmol/L (21.0-32.0); Chloride 101 mmol/L (98-107); Creatinine,Serum 0.74 mg/dL (0.55-1.02); Estimated Glomerular Filt Rate 88 ml/min (>60); GFR (African American) 106 ML/MIN (>60); Globulin 3.5 gm/dl (1.3-3.2); Glucose 103 mg/dL (74-106); Potassium 4.3 mmoL/L (3.5-5.1); Sodium 139 mmol/L (136-145); Total Protein,Serum 7.1 gm/dL (6.4-8.2)
== END ==
PROVIDERS: Visit Provider Internal Medicine Rheumatology
DX: M19.90 Unspecified osteoarthritis, unspecified site (principal)
CPT/HCPCS: 36415; 80053; 85025

== ENCOUNTER → 2018-09-15 09:18 | Outpatient (CLI) | payer BC, SELFPAY ==
--- NOTE | 2018-09-15 09:30 | XR_ITS ---
XR chest 2V HISTORY: ITS.REASON: CHEST PAIN ORDERING PHYSICIAN: Alena Reed APRN PATIENT AGE: 37 years COMPARISON: 10/18/2015. FINDINGS: The cardiomediastinal silhouette and pulmonary vascularity are within normal limits. The lungs are clear without infiltrates, suspicious nodules, or pleural effusions. There is a stable right upper lobe benign calcified granuloma. No acute bony abnormalities. IMPRESSION: No acute process and no significant change. Cardiac pacemaker is now present.
[2018-09-15 10:07] LABS: Troponin I < 0.02 ng/ml (0.00-0.06)
[2018-09-15 10:12] LABS: Basophils % 0.4 % (0.1-2.0); Eosinophils # 0.3 K/mm3 (0.0-0.4); Eosinophils % 3.2 % (0.1-12.0); Hematocrit 39.9 % (37.0-47.0); Hemoglobin 12.7 g/dL (12.2-16.2); Lymphocytes # 1.7 K/mm3 (0.7-4.5); Lymphocytes % 17.7 % (10-50); Mean Corpuscular HGB Conc 31.8 g/dL (31.8-35.4); Mean Corpuscular Hemoglobin 25.2 pg (27.0-31.2); Mean Corpuscular Volume 79.5 fl (81-99); Monocytes # 0.4 K/mm3 (0.1-1.0); Monocytes % 4.4 % (1.7-9.3); Neutrophils # 7.3 K/mm3 (1.8-7.8); Neutrophils % 74.3 % (37.0-80.0); Platelet Count 347 K/mm3 (142-424); Red Blood Count 5.02 M/mm3 (4.20-5.40); Red Cell Distribution Width 14.4 % (11.5-17.5); White Blood Count 9.8 K/mm3 (4.8-10.8)
[2018-09-15 10:13] LABS: Alanine Aminotransferase 53 U/L (12-78); Albumin Level 3.6 gm/dL (3.4-5.0); Albumin/Globulin Ratio 0.9 (1.1-1.8); Alkaline Phosphatase 109 U/L (46-116); Aspartate Amino Transferase 20 U/L (15-37); Bilirubin,Total 0.5 mg/dL (0.2-1.0); Blood Urea Nitrogen 8 mg/dL (7-18); C-Reactive Protein 1.6 mg/L (0.0-0.9); Calcium 9.2 mg/dL (8.5-10.1); Carbon Dioxide 28 mmol/L (21.0-32.0); Chloride 103 mmol/L (98-107); Chol/HDL Ratio 2.7 (1-3.5); Cholesterol 139 mg/dL (140-200); Creatinine,Serum 0.81 mg/dL (0.55-1.02); Estimated Glomerular Filt Rate 79 ml/min (>60); GFR (African American) 96 ML/MIN (>60); Globulin 4.2 gm/dl (1.3-3.2); Glucose 99 mg/dL (74-106); HDL Cholesterol 51 mg/dL (29-89); LDL Cholesterol 53 mg/dL (0-130); Magnesium 1.7 mg/dL (1.4-2.2); Sodium 139 mmol/L (136-145); Thyroid Stimulating Hormone 3.74 uIU/ml (0.358-3.740); Total Protein,Serum 7.8 gm/dL (6.4-8.2); Triglycerides 175 mg/dL (30-200); VLDL Cholesterol 35 mg/dL (0-40)
[2018-09-15 10:24] LABS: D-Dimer < 100 ng/mL (0-400)
== END ==
PROVIDERS: PCP Nurse Practitioner Family; Visit Provider Nurse Practitioner Family
DX: R07.9 Chest pain, unspecified (principal); R42 Dizziness and giddiness; R53.1 Weakness
CPT/HCPCS: 36415; 71046; 80053; 80061; 83735; 84443; 84484; 85025; 85378; 86140

== ENCOUNTER → 2018-09-19 09:48 | Outpatient (CLI) | payer BC, SELFPAY ==
--- NOTE | 2018-09-19 09:49 | CA_ITS ---
PROCEDURE: 2-D M-mode and color Doppler study INDICATIONS FOR THE TEST: Chest pain COPD Heart Murmur Tobacco Smoking Palpitations Fatigue Syncope Edema HypertensionXDiabetes MellitusX Rheumatic Fever SOBXDOEXObesityXHyperlipidemia Family History HD Additional History AICD,CM,PHTN,CHF TDS OBESITY PATIENT INFORMATION HEIGHT: 63 WEIGHT:266 GENDER: Female B/P:124/69 2-D/M-MODE INTERPRETATION: 2-D MEASUREMENTS OBSERVED VALUES IN CMS Right Ventricular Dimension (RVDd) 3.2 Interventricular Septum (Thickness)(IVsd) 1.2 Left Ventricular Internal Dimensions(LVIDd) 6.0 Left Ventricular Posterior Wall (Thickness)(LVPWd) 1.1 Aortic Root 3.4 Aortic Cusp Separation 2.0 Left Atrial Dimensions (LAD) 3.0 2D 1. Left atrium is mildly enlarged, left ventricle is mildly dilated, mild concentric left ventricular hypertrophy, severely reduced left ventricular systolic function, visually estimated ejection fraction approximately 30%, left ventricle is globally hypokinetic. 2. The right atrium and right ventricle are mildly enlarged with normal contractility, there is a pacemaker lead seen in the right ventricle. 3. The aortic, mitral and tricuspid valvular grossly normal. 4. The pulmonic valve is poorly visualized. 5. No significant pericardial effusion noted. DOPPLER INTERROGATION: Doppler interrogation of the aortic, mitral and tricuspid valvular presence of mild mitral and tricuspid regurgitation, tricuspid regurgitation jet velocity is inadequate for calculation of the right ventricular systolic pressure, grade 1 diastolic dysfunction seen without tissue Doppler evidence of raised left atrial pressure. CONCLUSION: 1. Mildly enlarged left atrium, mildly dilated left ventricle, mild concentric left ventricular hypertrophy, visually estimated ejection fraction approximately 30%, left ventricle is globally hypokinetic. Grade 1 diastolic dysfunction seen without tissue Doppler evidence of raised left atrial pressure. 2. Mildly enlarged right ventricle with normal contractility. 3. Mild mitral and tricuspid regurgitation 4. No significant pericardial effusion noted.
== END ==
PROVIDERS: PCP Nurse Practitioner Family; Visit Provider Internal Medicine
DX: R06.02 Shortness of breath (principal); I42.0 Dilated cardiomyopathy; I11.0 Hypertensive heart disease with heart failure; I27.20 Pulmonary hypertension, unspecified; R42 Dizziness and giddiness; Z95.810 Presence of automatic (implantable) cardiac defibrillator
CPT/HCPCS: 93306

== ENCOUNTER 2019-03-23 20:32 | Observation (INO) ==
[2019-03-23 21:06] LABS: Basophils # 0.1 K/mm3 (0-0.2); Basophils % 0.4 % (0.1-2.0); Eosinophils # 0.3 K/mm3 (0.0-0.4); Eosinophils % 2.1 % (0.1-12.0); Hematocrit 45.3 % (37.0-47.0); Hemoglobin 14.5 g/dL (12.2-16.2); Lymphocytes # 3.3 K/mm3 (0.7-4.5); Lymphocytes % 25.1 % (10-50); Mean Corpuscular Volume 82.9 fl (81-99); Mean Platelet Volume 7.6 fl (7.4-10.4); Monocytes # 0.7 K/mm3 (0.1-1.0); Monocytes % 5.3 % (1.7-9.3); Neutrophils # 8.7 K/mm3 (1.8-7.8); Neutrophils % 67.1 % (37.0-80.0); Platelet Count 425 K/mm3 (142-424); Red Blood Count 5.46 M/mm3 (4.20-5.40); Red Cell Distribution Width 13.2 % (11.5-17.5)
[2019-03-23 21:16] LABS: Albumin Level 4.1 gm/dL (3.4-5.0); Albumin/Globulin Ratio 0.9 (1.1-1.8); Anion Gap 16.7 mEq/L (5-15); Bilirubin,Total 0.6 mg/dL (0.2-1.0); C-Reactive Protein 4.3 mg/dL (0.0-0.9); Calcium 9.7 mg/dL (8.5-10.1); Globulin 4.5 gm/dl (1.3-3.2); Total Protein,Serum 8.6 gm/dL (6.4-8.2)
[2019-03-23 21:35] LABS: Erythrocyte Sedimentation Rate 47 mm/hr (0-20)
--- NOTE | 2019-03-23 21:42 | Emergency Department Note ---
ED Disposition Clinical Impression: Post-tonsillectomy hemorrhage Disposition: Admitted as Observation Condition on Discharge: Fair Instructions: DI for Diarrhea and Traveler's Diarrhea -- Adult, DI for Diarrhea and Traveler's Diarrhea -- Child, DI for Nausea -- Adult, DI for Nausea -- Child Referrals: Eric Caraballo MD [Primary Care Provider] - - Critical Care Critical Care Time: No Attestation: On 03/23/19, the high probability of a clinically significant, sudden or life threatening deterioration of the following system(s) required my full and direct attention, intervention and personal management. The time I documented below is in addition to time spent performing reported procedures but includes the following listed in this critical care notation. Medical Decision Making - Medical Records Medical records reviewed: Yes: I reviewed the patient's medical records. - Robbie Inquiry Pt receiving controlled substance: No Vital Signs: 03/23/19 20:42 03/23/19 21:04 03/23/19 21:30 Temperature 98.1 F Temperature Source Oral Pulse Rate [Left Radial] 136 H 142 H 152 H Respiratory Rate 18 18 17 Blood Pressure [Right Arm] 134/98 H 127/84 116/76 Blood Pressure Mean [Right Arm] 110 98 89 Blood Pressure Source [Right Arm] Automatic Cuff Automatic Cuff Blood Pressure Position [Right Arm] Sitting Sitting 02 Sat by Pulse Oximetry 98 97 96 Oxygen Delivery Method Room Air Room Air 03/23/19 21:45 03/23/19 22:12 Temperature Temperature Source Pulse Rate [Left Radial] 135 H 130 H Respiratory Rate 18 17 Blood Pressure [Right Arm] 116/75 118/75 Blood Pressure Mean [Right Arm] 88 89 Blood Pressure Source [Right Arm] Blood Pressure Position [Right Arm] 02 Sat by Pulse Oximetry 98 98 Oxygen Delivery Method Room Air Room Air - Lab Data Lab results reviewed: Yes: I reviewed the patient's lab results. Lab Results 03/23/19 20:50: WBC 13.0 H, RBC 5.46 H, Hgb 14.5, Hct 45.3, MCV 82.9, MCH 26.5 L , MCHC 32.0, RDW 13.2, Plt Count 425 H, MPV 7.6, Neut % (Auto) 67.1, Lymph % (Auto) 25.1, [place] % (Auto) 5.3, Eos % (Auto) 2.1, Baso % (Auto) 0.4, Neut # (Auto) 8.7 H, Lymph # (Auto) 3.3, [place] # (Auto) 0.7, Eos # (Auto) 0.3, Baso # (Auto) 0.1, ESR 47 H 03/23/19 20:50: Sodium 140, Potassium 3.7, Chloride 100, Carbon Dioxide 27, Anion Gap 16.7 H, BUN 7, Creatinine 0.94, Estimated Creat Clear 121, Estimated GFR 66, Est GFR ( Amer) 80, Glucose 145 H, Calcium 9.7, Total Bilirubin 0.6, AST 36, ALT 70, Alkaline Phosphatase 132 H, C-Reactive Protein 4.3 H, Total Protein 8.6 H, Albumin 4.1, Globulin 4.5 H, Albumin/Globulin Ratio 0.9 L Result diagrams: 03/23/19 20:50 03/23/19 20:50 Orders (Tests/Meds): ED MEDICATIONS Generic Name Dose Route Start Last Admin Trade Name Freq PRN Reason Stop Dose Admin Sodium Chloride 1,000 mls @ 999 mls/hr 03/23/19 21:00 03/23/19 20:59 Sod Chlor 0.9% 1000ml Bag IV 03/23/19 22:00 999 mls/hr .Q1H1M DOROTEO Administration Discontinued Medications Generic Name Dose Route Start Last Admin Trade Name Freq PRN Reason Stop Dose Admin Ketorolac Tromethamine 30 mg 03/23/19 21:13 03/23/19 21:14 Toradol 30mg/Ml Vial IV 03/23/19 21:14 30 mg ONCE ONE Administration Ondansetron HCl 4 mg 03/23/19 20:50 03/23/19 20:59 Zofran 4mg/2ml Vial IV 03/23/19 20:51 4 mg ONCE ONE Administration - Physician Consults Physician Consulted: frankie Reason -: Pt condition Additional Consult: dora Reason -: Admission URI/Sore Throat HPI - General Chief Complaint: Nausea/Vomiting/Diarrhea Stated Complaint: Surg 0123 vomiting.,blood Time Seen by Provider: 03/23/19 21:00 Mode of Arrival: Ambulatory Source of Information: Patient, Parent(s), Medical Record Limitations: No Limitations Description of Symptoms (Recalled from ER Triage Doc. by RN): tonsillectomy 03/19/2019. patient states today her throat started bleeding and has had nausea and vomiting since one day ago. patient was on xarelto prior to surgery and has been taking lovenox injections since. - History of Present Illness HPI Narrative: recent tonsillectomy and was doing well until this pm with post -op bleeding - pt on lovenox - pt had prev hx of pul emboli- pt with no chest pain MD Complaint: other (post op bleeding ) Onset (ago): hour(s) Duration: intermittent Severity: moderate Able to tolerate fluids by mouth: No Associated symptoms: denies other symptoms Treatments prior to arrival: none - Related Data Home Medications Medication Instructions Recorded Confirmed biotin 10,000 mcg capsule 10,000 mcg PO DAILY 03/15/17 03/23/19 levothyroxine 25 mcg tablet 25 mcg PO QDAY tab 03/15/17 03/23/19 rivaroxaban 20 mg tablet 20 mg PO QDAY 03/15/17 03/23/19 simvastatin 20 mg tablet 20 mg PO QPM 03/15/17 03/23/19 spironolactone 25 mg tablet 12.5 mg PO QDAY tab 03/15/17 03/23/19 tramadol 50 mg tablet 50 mg PO Q6H PRN 03/15/17 03/23/19 metformin 500 mg tablet 1,000 mg PO QDAY tab 10/21/17 03/23/19 sitagliptin 100 mg tablet 100 mg PO DAILY 10/21/17 03/23/19 hydroxychloroquine 200 mg tablet 200 mg PO BID tab 01/20/18 03/23/19 gabapentin 300 mg capsule 600 mg PO DAILY cap 08/04/18 03/23/19 Enoxaparin Sodium [Lovenox 120 mg SQ Q12H 03/18/19 03/23/19 120mg/0.8mL syringe] Previous Rx's Medication Instructions Recorded sacubitril 49 mg-valsartan 51 mg 1 tab PO BID #60 tab 12/01/18 tablet carvedilol 25 mg tablet 25 mg PO BID #60 tab 12/19/18 Allergies Allergy/AdvReac Type Severity Reaction Status Date / Time No Known Drug Allergies Allergy Unknown Verified 03/23/19 20:51 [facility] History - Hepatitis A Screen Drug use history?: No High risk sexual behaviors?: No History of sexually transmitted infection?: No Currently employed?: No Childcare worker?: No Do you have indoor plumbing?: Yes Do you have electricity?: Yes Attestation statement:: This patient has been screened for Hepatitis A risk factors. I have reviewed the patient's past medical history: Yes 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: Reports:: Anxiety, Arrhythmia, Congestive Heart Failure, Diabetes Mellitus Type 2, Hyperlipidemia, Hypertension, Internal Pacemaker, Palpitations, Pulmonary Embolism Denies:: Cancer, Diabetes Mellitus Type 1, MRSA, Seizures Other 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: Reports: Hypothyroidism. Denies: Blood Transfusion Reaction Other Surgeries: Yes: No Previous Surgery, Appendectomy, Hysterectomy-Total, Pacemaker, Other Amputation: No Fractures: No Comment: CTR- right - Social History Smoking Status: Never smoker Alcohol Intake: never Alcohol Intake Frequency:: other Substance Use Type: denies use Occupational Status: disabled, other Housing: house Household Members: spouse - Psychiatric History Pschychiatric History:: Reports:: Anxiety Family Hx:: Diabetes, Hypertension ROS Obtained: Yes All systems reviewed & no additional complaints - Constitutional Constitutional: Denies fever(s) - Eyes Eyes: Denies change in vision - ENT Ears, Nose, Mouth, and Throat: Reports as per HPI, Denies sore throat, Reports other (bleeding ) - Cardiovascular Cardiovascular: Denies chest pain - Respiratory Respiratory: No cough - Gastrointestinal Gastrointestingal: Denies: abdominal pain - Genitourinary Female Genitourinary: Denies hematuria - Musculoskeletal Musculoskeletal: Denies joint pain - Integumentary/Breasts Skin/Breast: Denies rash - Neurologic Neurologic: Denies focal weakness, Denies seizure-like activity Physical Exam - General General appearance: alert - Head Head exam: normocephalic - Eye Eye exam: Present: PERRL, EOMI. Absent: scleral icterus - ENT ENT exam: Present: mucous membranes dry, other (bleeding s/p tonsilectomy) - Neck Neck exam: Present: trachea midline - Respiratory Respiratory exam: Absent: respiratory distress - Cardiovascular Cardiovascular exam: Present: tachycardia - Abdominal Exam Abdominal exam: Present: soft - Extremities Exam Extremities exam: Present: full ROM. Absent: pedal edema - Neurological Exam Neurological exam: Present: alert, oriented X3, CN II-XII intact - Psychiatric Psychiatric exam: Present: normal affect - Skin Skin exam: Absent: rash
--- NOTE | 2019-03-24 00:36 | Progress Note ---
[facility] Anesthesia Checklist - Patient Identification Patient Identification: Arm Band - Structural Data Admitted From: Home Planned Operative Procedure/s: control of post tonsillectomy bleeding Consent for Planned Operative Procedure(s) Verified: Yes Verified Documents: Surgical Consent, History and Physical - NPO Status Verified Time NPO: 00:00 - Additional verifications Anesthesia Reactions: No Hx Blood Transfusions: No Blood Transfusion Reaction: No - Airway Assessment C-Spine Mobility Assessed: Yes (mp2) TMJ Mobility Assessed: Yes Dentition: Good Dentition - Neurological Assessment Level of Consciousness: Awake, Alert - Anesthesia Plan Anesthesia Risk discussed: Yes Anesthesia Plan: Verified ASA Class: III (e) Anesthesia Type: General [facility] History I have reviewed the patient's past medical history: Yes 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: Reports:: Anxiety, Arrhythmia, Congestive Heart Failure, Diabetes Mellitus Type 2, Hyperlipidemia, Hypertension, Internal Pacemaker, Palpitations, Pulmonary Embolism Denies:: Cancer, Diabetes Mellitus Type 1, MRSA, Seizures *Have you ever received a pneumonia vaccine?: No *Have you received a flu vaccine this season?: Yes Other 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: Reports: Hypothyroidism. Denies: Blood Transfusion Reaction Anesthesia experience/problems:: nac Laterality Cases: Bilateral: Tonsillectomy Other Surgeries: Yes: Appendectomy, Hysterectomy-Total, Pacemaker, Other Amputation: No Fractures: No - *Social History Smoking Status: Never smoker Alcohol Intake: never Alcohol Intake Frequency:: other Substance Use Type: denies use *Occupational Status:: disabled, other Housing: house Household Members: spouse *Travel in the last 8 weeks: None - Psychiatric History Pschychiatric History:: Reports:: Anxiety Family Hx:: Diabetes, Hypertension
--- NOTE | 2019-03-24 01:08 | Progress Note ---
[facility] Anesthesia Record Part I Intake, IV Amount: 800 Estimated blood loss (mL): 10 Urine output (mL): 0 Blood Pressure: 136/46 SaO2: 95 Pulse Rate: 100 Respiratory Rate: 16 Temperature: 97.0 F Patient is:: Drowsy, Stable Stable to PACU at:: 01:10
--- NOTE | 2019-03-24 07:17 | Progress Note ---
[facility] Anesthesia Record Part II Discharge Time: 01:30 Destination: Medical Surgical Department PACU nurse assessment reviewed?: Yes Patient Condition:: Good Anesthesia Complications:: None Swallowing reflex intact?: Yes Cyanosis?: No Blood Pressure: 136/82 Pulse Rate: 92 Temperature: 98.6 F Mental Status: Alert & Oriented Pain level:: 0 Nausea and/or vomitting:: None Intake, IV Amount: 0
[2019-03-24 07:25] LABS: Basophils % 0.1 % (0.1-2.0); Eosinophils % 0.1 % (0.1-12.0); Monocytes # 0.2 K/mm3 (0.1-1.0)
[2019-03-24 07:28] LABS: Hematocrit 36.6 % (37.0-47.0); Lymphocytes # 1.1 K/mm3 (0.7-4.5); Lymphocytes % 6.2 % (10-50); Mean Corpuscular HGB Conc 33.2 g/dL (31.8-35.4); Mean Corpuscular Volume 81.4 fl (81-99); Mean Platelet Volume 9.2 fl (7.4-10.4); Neutrophils # 16.7 K/mm3 (1.8-7.8); Neutrophils % 92.7 % (37.0-80.0); Platelet Count 400 K/mm3 (142-424); Red Cell Distribution Width 13.4 % (11.5-17.5)
[2019-03-24 07:29] LABS: Hemoglobin 12.2 g/dL (12.2-16.2)
--- NOTE | 2019-03-24 07:30 | History & Physical Report ---
*Admission Date: 03/24/19 *Chief complaint: Bleeding from surgical site *History of present illness: 38-year-old female who underwent tonsillectomy on March 19 was at home yesterday evening in her usual state of health when she developed an abnormal sensation in the back of the throat and began spitting up blood. Patient has a history of DVTs and pulmonary embolisms and is been on Xarelto up until recently when she was transitioned to Lovenox both pre-and postoperatively. Bleeding persisted and she presented to the emergency department. In the emergency department she was identified as having bleeding coming from her surgical site. Dr. Corea of the ENT service was contacted and patient was taken to the operating room. This morning patient reports feeling well. She only has mild throat pain. [facility] History I have reviewed the patient's past medical history: Yes 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: Reports:: Anxiety, Arrhythmia, Congestive Heart Failure, Diabetes Mellitus Type 2, Hyperlipidemia, Hypertension, Internal Pacemaker, Palpitations, Pulmonary Embolism Denies:: Cancer, Diabetes Mellitus Type 1, MRSA, Seizures *Have you ever received a pneumonia vaccine?: No *Have you received a flu vaccine this season?: No Other 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: Reports: Hypothyroidism. Denies: Blood Transfusion Reaction Anesthesia experience/problems:: nac Laterality Cases: Bilateral: Tonsillectomy Other Surgeries: Yes: No Previous Surgery, Appendectomy, Cardiac Catheterization, Hysterectomy-Total, Pacemaker, Other Amputation: No Fractures: No - *Social History Educational Level: Completed High School Smoking Status: Never smoker Alcohol Intake: never Alcohol Intake Frequency:: other Substance Use Type: denies use *Occupational Status:: disabled, other Housing: house Household Members: spouse *Travel in the last 8 weeks: None - Psychiatric History Pschychiatric History:: Reports:: Anxiety Family Hx:: Cancer, Diabetes, Hypertension, Stroke, Thyroid Disorder Review of Systems - Constitutional Denies body ache(s), Denies chills - *Cardiovascular Denies chest pain, Denies chest pain at rest - *Respiratory Denies change in phlegm color, Denies chest congestion - *Gastrointestinal Denies abdominal pain, Denies belching, Denies bloating - *Musculoskeletal Denies abnormal walking, Denies joint pain - *Neurologic Denies localized weakness, Denies seizure-like activity Meds Home Medications Medication Instructions Recorded Confirmed Type biotin 10,000 mcg capsule 10,000 mcg PO DAILY 03/15/17 03/24/19 History levothyroxine 25 mcg tablet 25 mcg PO QDAY tab 03/15/17 03/24/19 History rivaroxaban 20 mg tablet 20 mg PO QDAY 03/15/17 03/24/19 History simvastatin 20 mg tablet 20 mg PO QPM 03/15/17 03/24/19 History spironolactone 25 mg tablet 12.5 mg PO QDAY tab 03/15/17 03/24/19 History tramadol 50 mg tablet 50 mg PO Q6H PRN 03/15/17 03/24/19 History metformin 500 mg tablet 1,000 mg PO QDAY tab 10/21/17 03/24/19 History sitagliptin 100 mg tablet 100 mg PO DAILY 10/21/17 03/24/19 History hydroxychloroquine 200 mg tablet 200 mg PO BID tab 01/20/18 03/24/19 History gabapentin 300 mg capsule 300 mg PO BID cap 08/04/18 03/24/19 History sacubitril 49 mg-valsartan 51 mg 1 tab PO BID #60 tab 12/01/18 03/24/19 Rx tablet carvedilol 25 mg tablet 25 mg PO BID #60 tab 12/19/18 03/24/19 Rx Enoxaparin Sodium [Lovenox 120 mg SQ Q12H 03/18/19 03/23/19 History 120mg/0.8mL syringe] Allergies Allergy/AdvReac Type Severity Reaction Status Date / Time No Known Drug Allergies Allergy Unknown Verified 03/23/19 20:51 Exam Vital signs and Labs for Last 24 Hours: Temp Pulse Resp BP Pulse Ox 99.7 F H 128 H 18 114/66 96 03/24/19 07:18 03/24/19 07:18 03/24/19 07:18 03/24/19 07:18 03/24/19 07:18 Laboratory Results - last 24 hr 03/23/19 20:50: WBC 13.0 H, RBC 5.46 H, Hgb 14.5, Hct 45.3, MCV 82.9, MCH 26.5 L , MCHC 32.0, RDW 13.2, Plt Count 425 H, MPV 7.6, Neut % (Auto) 67.1, Lymph % (Auto) 25.1, [place] % (Auto) 5.3, Eos % (Auto) 2.1, Baso % (Auto) 0.4, Neut # (Auto) 8.7 H, Lymph # (Auto) 3.3, [place] # (Auto) 0.7, Eos # (Auto) 0.3, Baso # (Auto) 0.1, ESR 47 H 03/23/19 20:50: Sodium 140, Potassium 3.7, Chloride 100, Carbon Dioxide 27, Anion Gap 16.7 H, BUN 7, Creatinine 0.94, Estimated Creat Clear 121, Estimated GFR 66, Est GFR ( Amer) 80, Glucose 145 H, Calcium 9.7, Total Bilirubin 0.6, AST 36, ALT 70, Alkaline Phosphatase 132 H, C-Reactive Protein 4.3 H, Total Protein 8.6 H, Albumin 4.1, Globulin 4.5 H, Albumin/Globulin Ratio 0.9 L 03/24/19 01:12: POC Glucose 149 H 03/24/19 05:48: Sodium 140, Potassium 4.0, Chloride 105, Carbon Dioxide 22, BUN 9 D, Creatinine 0.68 D, Glucose 132 H 03/24/19 06:35: POC Glucose 178 H I & O for Last 24 hours: Intake & Output 03/21/19 03/22/19 03/23/19 03/24/19 11:59 11:59 11:59 11:59 Intake Total 1145 / 1145 Output Total 200 / 200 Balance 945 / 945 Weight 209 lb 15.986 oz - Constitutional no acute distress - *Routine HEENT Exam Head: Present: normocephalic Eye: Present: EOMI Comments: Postoperative changes of the posterior oropharynx - *Routine Neck Exam Present: supple. Absent: JVD, carotid bruit - *Routine Respiratory Exam Present: CTA bilaterally - *Routine Cardiovascular Exam Present: RRR, Normal S1, Normal S2 - *Routine Abdominal Exam Present: soft, normoactive bowel sounds - *Routine Extremities Exam Absent: edema - *Routine Neurological Exam Present: alert, oriented X3, CN II-XII intact Assessment and Plan (1) Post-tonsillectomy hemorrhage Current visit: Yes Status: Acute Category: Medical Code(s): J95.830 - Postprocedural hemorrhage of a respiratory system organ or structure following a respiratory system procedure (2) Nonischemic cardiomyopathy Current visit: No Status: Acute Category: Medical Code(s): I42.8 - Other cardiomyopathies (3) Pulmonary hypertension Current visit: No Status: Acute Category: Medical Code(s): I27.20 - Pulmonary hypertension, unspecified (4) Automatic implantable cardioverter-defibrillator in situ Current visit: No Status: Chronic Category: Medical Code(s): Z95.810 - Presence of automatic (implantable) cardiac defibrillator - Assessment and plan all Dx Assessment and Plan for all problems:: 1. Continue clear liquids 2. Other postoperative care per Dr. Corea 3. I have ordered a few of the patient's home medications that I consider essential
--- NOTE | 2019-03-24 07:43 | Pharmacy Consult Notes ---
[facility] Pharmacy VTE Monitoring - Patient Demographics Admission date: 03/23/19 Report Date: 03/24/19 Time: 07:43 Allergies/Adverse Reactions: Patient Allergies No Known Drug Allergies Allergy (Unknown, Verified 03/23/19 20:51) Height: 1.6 m Weight: 95.254 kg Patient Problems: Current Active Problems (Last Reviewed 06/13/17 @ 13:48 by Mary Torres, ARRT) Post-tonsillectomy hemorrhage (Acute) - VTE Risk Labs: VTE Related Lab Results Hgb 12.2 g/dL (12.2-16.2) D 03/24/19 05:48 Hct 36.6 % (37.0-47.0) L 03/24/19 05:48 Plt Count 400 K/mm3 (142-424) 03/24/19 05:48 BUN 9 mg/dL (7-18) D 03/24/19 05:48 Creatinine 0.68 mg/dL (0.55-1.02) D 03/24/19 05:48 Estimated Creat Clear 121 mL/min (50-200) 03/23/19 20:50 VTE Score: 6 VTE Risk Level: Moderate Risk - Prophylaxis VTE Prophylaxis Ordered?: Yes Types of VTE Prophylaxis: TEDS Knee High Location of Applied Device: Bilateral Lower Extremeties - VTE Diagnosis Confirmed Treatment or plan recommended: Continue Current Treatment
[2019-03-24 08:27] LABS: Calcium 8.8 mg/dL (8.5-10.1)
[2019-03-24 09:26] LABS: Hypochromasia 1+; Lymphocytes % 6 % (10-50); Monocytes % 2 % (2-9); Neutrophils % 92 % (42-76); Total Cells Counted 100
--- NOTE | 2019-03-24 09:56 | Discharge Summary ---
General - General Admission date:: 03/24/19 Discharge date: 03/24/19 HPI HPI: 38-year-old female who underwent tonsillectomy on March 19 was at home yesterday evening in her usual state of health when she developed an abnormal sensation in the back of the throat and began spitting up blood. Patient has a history of DVTs and pulmonary embolisms and is been on Xarelto up until recently when she was transitioned to Lovenox both pre-and postoperatively. Bleeding persisted and she presented to the emergency department. In the emergency department she was identified as having bleeding coming from her surgical site. Dr. Corea of the ENT service was contacted and patient was taken to the operating room. This morning patient reports feeling well. She only has mild throat pain. Hospital Course Hospital Course: Patient underwent cauterization of site of bleeding by Dr. Corea. POst- operative observation there were no further complications. She has been advised to hold anticoagulants by Dr. Corea. Patient was discharged and will follow up with Dr. Corea and myself. Objective Vital signs: Temp Pulse Resp BP Pulse Ox 99.0 F 129 H 18 101/59 L 94 L 03/24/19 08:35 03/24/19 08:35 03/24/19 08:35 03/24/19 08:35 03/24/19 08:35 Results Labs on day of discharge: Labs from last 24 hours 03/24/19 03/24/19 03/24/19 06:35 05:48 05:48 WBC 18.0 H D RBC 4.50 Hgb 12.2 D Hct 36.6 L MCV 81.4 MCH 27.0 MCHC 33.2 RDW 13.4 Plt Count 400 MPV 9.2 Neut % (Auto) 92.7 H Lymph % (Auto) 6.2 L [place] % (Auto) 1.0 L Eos % (Auto) 0.1 Baso % (Auto) 0.1 Neut # (Auto) 16.7 H Lymph # (Auto) 1.1 [place] # (Auto) 0.2 Eos # (Auto) 0.0 Baso # (Auto) 0.0 Total Counted 100 Neutrophils % (Manual) 92 H Lymphocytes % (Manual) 6 L Monocytes % (Manual) 2 Platelet Estimate Normal Hypochromasia 1+ ESR Sodium 140 Potassium 4.0 Chloride 105 Carbon Dioxide 22 Anion Gap 17.0 H BUN 9 D Creatinine 0.68 D Estimated Creat Clear 167 Estimated GFR 96 Est GFR ( Amer) 117 D Glucose 132 H POC Glucose 178 H Calcium 8.8 Total Bilirubin AST ALT Alkaline Phosphatase C-Reactive Protein Total Protein Albumin Globulin Albumin/Globulin Ratio 03/24/19 03/23/19 03/23/19 01:12 20:50 20:50 WBC 13.0 H RBC 5.46 H Hgb 14.5 Hct 45.3 MCV 82.9 MCH 26.5 L MCHC 32.0 RDW 13.2 Plt Count 425 H MPV 7.6 Neut % (Auto) 67.1 Lymph % (Auto) 25.1 [place] % (Auto) 5.3 Eos % (Auto) 2.1 Baso % (Auto) 0.4 Neut # (Auto) 8.7 H Lymph # (Auto) 3.3 [place] # (Auto) 0.7 Eos # (Auto) 0.3 Baso # (Auto) 0.1 Total Counted Neutrophils % (Manual) Lymphocytes % (Manual) Monocytes % (Manual) Platelet Estimate Hypochromasia ESR 47 H Sodium 140 Potassium 3.7 Chloride 100 Carbon Dioxide 27 Anion Gap 16.7 H BUN 7 Creatinine 0.94 Estimated Creat Clear 121 Estimated GFR 66 Est GFR ( Amer) 80 Glucose 145 H POC Glucose 149 H Calcium 9.7 Total Bilirubin 0.6 AST 36 ALT 70 Alkaline Phosphatase 132 H C-Reactive Protein 4.3 H Total Protein 8.6 H Albumin 4.1 Globulin 4.5 H Albumin/Globulin Ratio 0.9 L DS: Diagnosis - Discharge Diagnosis (1) Post-tonsillectomy hemorrhage Status: Acute (2) Nonischemic cardiomyopathy Status: Acute (3) Pulmonary hypertension Status: Acute (4) Automatic implantable cardioverter-defibrillator in situ Status: Chronic Discharge Plan - Patient Discharge Instructions ACTIVITY: Continue current activity DIET: continue same diet Patient Instructions: Tonsillectomy-Adult, DI for Tonsillectomy-Adult, DI for Diarrhea and Traveler's Diarrhea -- Adult, DI for Diarrhea and Traveler's Diarrhea -- Child, DI for Nausea -- Adult, DI for Nausea -- Child - Follow up Plan Follow up with: Antonio Corea MD [Staff Physician] - 04/02/19 Eric Caraballo MD [Primary Care Provider] - 04/03/19 Disposition: Home, Self-Snf Medications: Home Medications Medication Instructions Recorded Confirmed Type biotin 10,000 mcg capsule 10,000 mcg PO DAILY 03/15/17 03/24/19 History levothyroxine 25 mcg tablet 25 mcg PO DAILY tab 03/15/17 03/24/19 History rivaroxaban 20 mg tablet 20 mg PO DAILY 03/15/17 03/24/19 History simvastatin 20 mg tablet 20 mg PO HS 03/15/17 03/24/19 History tramadol 50 mg tablet 50 mg PO Q6H PRN 03/15/17 03/24/19 History sitagliptin 100 mg tablet 100 mg PO DAILY 10/21/17 03/24/19 History hydroxychloroquine 200 mg tablet 200 mg PO BID tab 01/20/18 03/24/19 History gabapentin 300 mg capsule 300 mg PO BID cap 08/04/18 03/24/19 History sacubitril 49 mg-valsartan 51 mg 1 tab PO BID #60 tab 12/01/18 03/24/19 Rx tablet carvedilol 25 mg tablet 25 mg PO BID #60 tab 12/19/18 03/24/19 Rx Enoxaparin Sodium [Lovenox 120 mg SQ Q12H 03/18/19 03/23/19 History 120mg/0.8mL syringe] Metformin HCl [Metformin HCl ER] 1,500 mg PO DAILY 03/24/19 03/24/19 History Spironolactone [Spironolactone 12.5 mg PO DAILY 03/24/19 03/24/19 History 25mg Tablet] Prescriptions/Medication Reconciliation: Continued biotin 10,000 mcg capsule 10,000 mcg PO DAILY levothyroxine 25 mcg tablet 25 mcg PO DAILY tab simvastatin 20 mg tablet 20 mg PO HS hydroxychloroquine 200 mg tablet 200 mg PO BID tab tramadol 50 mg tablet 50 mg PO Q6H PRN PRN Reason: PAIN sitagliptin 100 mg tablet 100 mg PO DAILY gabapentin 300 mg capsule 300 mg PO BID cap sacubitril 49 mg-valsartan 51 mg tablet 1 tab PO BID #60 tab carvedilol 25 mg tablet 25 mg PO BID #60 tab Spironolactone [Spironolactone 25mg Tablet] 12.5 mg PO DAILY Metformin HCl [Metformin HCl ER] 1,500 mg PO DAILY Discontinued rivaroxaban 20 mg tablet 20 mg PO DAILY Enoxaparin Sodium [Lovenox 120mg/0.8mL syringe] 120 mg SQ Q12H - Problem Reconciliation Problems Reviewed?: Yes
--- NOTE | 2019-03-24 10:01 | Operative Note ---
Date of procedure: 03/24/19 Pre-op Diagnosis:: 1. Post tonsillectomy hemorrhage 2. Diabetes mellitus type 2 3. Dehydration 4. Coagulation disorder Post-op Diagnosis:: same Procedure performed:: Control of post tonsillectomy hemorrhage Surgeon:: Antonio Corea MD COTTON WASHER:: Chico Knox Anesthesia: GETA Estimated blood loss (mL): 8 Operative findings:: same Operative note:: This patient was seen in the ER at 10:30 PM March 23 because of an onset of bleeding from her mouth. She had had an uneventful tonsillectomy 4 days earlier and was doing well until she reduced her fluid intake on February. When she arrived in the ER she was dehydrated and she was given 2 Liters of fluid IV. She was gagging and straining because of a clot in her throat, the clot was very tenacious and could not be suctioned out. It was finally removed with sponge forceps. Evidence of some minimal bleeding from the left tonsil bed. Because of this she was taking to the OR and given general anesthetic. The throat was fully examined after insertion of Glez Joe gag, there was oozing from the left tonsil bed which was stopped with cautery. Surgicel snow was then placed in the left tonsil cavity. And it was secured in that site with 2-0 chromic sutures. All of the bleeding was stopped, the right tonsil bed was healing well. The throat was thoroughly irrigated with saline. And the patient was sent to recovery in good general condition. Dr Antonio Corea. Condition: stable Disposition: PACU Complications:: none
--- NOTE | 2019-03-24 10:05 | Progress Note ---
Subjective Patient reports: no new complaints, feels better, pain is less, tolerating liquids well Exam Vital signs and Labs for Last 24 Hours: Temp Pulse Resp BP Pulse Ox 99.0 F 129 H 18 101/59 L 94 L 03/24/19 08:35 03/24/19 08:35 03/24/19 08:35 03/24/19 08:35 03/24/19 08:35 Laboratory Results - last 24 hr 03/23/19 20:50: WBC 13.0 H, RBC 5.46 H, Hgb 14.5, Hct 45.3, MCV 82.9, MCH 26.5 L , MCHC 32.0, RDW 13.2, Plt Count 425 H, MPV 7.6, Neut % (Auto) 67.1, Lymph % (Auto) 25.1, Shasta % (Auto) 5.3, Eos % (Auto) 2.1, Baso % (Auto) 0.4, Neut # (Auto) 8.7 H, Lymph # (Auto) 3.3, Shasta # (Auto) 0.7, Eos # (Auto) 0.3, Baso # (Auto) 0.1, ESR 47 H 03/23/19 20:50: Sodium 140, Potassium 3.7, Chloride 100, Carbon Dioxide 27, A nion Gap 16.7 H, BUN 7, Creatinine 0.94, Estimated Creat Clear 121, Estimated GFR 66, Est GFR ( Amer) 80, Glucose 145 H, Calcium 9.7, Total Bilirubin 0.6, AST 36, ALT 70, Alkaline Phosphatase 132 H, C-Reactive Protein 4.3 H, Total Protein 8.6 H, Albumin 4.1, Globulin 4.5 H, Albumin/Globulin Ratio 0.9 L 03/24/19 01:12: POC Glucose 149 H 03/24/19 05:48: WBC 18.0 H D, RBC 4.50, Hgb 12.2 D, Hct 36.6 L, MCV 81.4, MCH 27.0, MCHC 33.2, RDW 13.4, Plt Count 400, MPV 9.2, Neut % (Auto) 92.7 H, Lymph % (Auto) 6.2 L, Shasta % (Auto) 1.0 L, Eos % (Auto) 0.1, Baso % (Auto) 0.1, Neut # (Auto) 16.7 H, Lymph # (Auto) 1.1, Shasta # (Auto) 0.2, Eos # (Auto) 0.0, Baso # (Auto) 0.0, Total Counted 100, Neutrophils % (Manual) 92 H, Lymphocytes % (Manual) 6 L, Monocytes % (Manual) 2, Platelet Estimate Normal, Hypochromasia 1+ 03/24/19 05:48: Sodium 140, Potassium 4.0, Chloride 105, Carbon Dioxide 22, Anion Gap 17.0 H, BUN 9 D, Creatinine 0.68 D, Estimated Creat Clear 167, Estimated GFR 96, Est GFR ( Amer) 117 D, Glucose 132 H, Calcium 8.8 03/24/19 06:35: POC Glucose 178 H I & O for Last 24 hours: Intake & Output 03/21/19 03/22/19 03/23/19 03/24/19 23:59 23:59 23:59 23:59 Intake Total 1385 / 1385 Output Total 200 / 200 Balance 1185 / 1185 Weight 210 lb 209 lb 15.986 oz - *Routine HEENT Exam Comments: This patient was admitted to Dr. Eric Caraballo service subsequent to treatment for a postop hemorrhage from the left tonsil. He was admitted to the second floor at approximately 2:30 AM March 24, 2019. When examined at 9 AM on March 24, 2019 her condition was stable and there was no evidence of any bleeding from the throat. She was taking fluids well and she had no respiratory distress. She has a past history of DVTs and had been on Eliquis and then perioperatively she was on Lovenox and the Lovenox was started the day following her surgery on March 20 2019. She was taking 100 mg twice daily. Clearly that was a precipitating factor for her bleeding, I discussed the issue with Dr. Tay's team and they were in agreement to stop the Lovenox for at least 5 days subsequent to the surgery done on March 24, 2019 to stop the bleeding from the left tonsil fossa. He was fit for discharge and accordingly she was discharged and given a follow-up at my clinic on . However if there should be any problems in her condition she will either come back to the ER or follow-up at the clinic sooner. Dr. Antonio Corea Progress Note: A&P (1) Post-tonsillectomy hemorrhage Status: Acute Current Visit: Yes (2) Nonischemic cardiomyopathy Status: Acute Current Visit: No (3) Pulmonary hypertension Status: Acute Current Visit: No (4) Automatic implantable cardioverter-defibrillator in situ Status: Chronic Current Visit: No
== END 2019-03-24 10:29 | disposition home or self-care (01) ==
LOC: ER 20:32 → SDC 03-24 00:15 → 2ND 03-24 00:15 → ER 03-24 00:19
PROVIDERS: ADMIT Internal Medicine Adolescent Medicine; ATTEND Family Medicine
CPT/HCPCS: 36415; 80048; 80053; 82962; 85007; 85025; 85651; 86140; 96365; 96375; 99284; G0378; J2405; J2710

== ENCOUNTER → 2019-07-14 08:18 | Outpatient (CLI) | payer BC, SELFPAY ==
--- NOTE | 2019-07-14 08:19 | CA_ITS ---
APPROVED REPORT EXAM: Comprehensive 2D, Doppler, and color-flow Echocardiogram Dry Curer: Mary Pablo CRT Ht: 5 ft 3 in Wt: 267lbs BSA: 2.19 BP: 115/57 mmHg Indications: CM, AICD, EF 30% 08/2018, HTN, DM, OBESITY, HLD 2D Dimensions LVOT 1.92 cm (M/F) 1.5-2.5 M-Mode Dimensions RVDd 2.68 cm (0.9-2.6) LVDd 6.37 cm (3.5-5.7) LVDs 5.80 cm (3.5-5.7) IVSd 0.76 cm (0.6-1.1) PWd 0.68 cm (0.6-1.1) EF (Teich) 19.20% FS 8.90% EDV (Teich) 206.30 mL ESV (Teich) 166.60 mL LV Diastology E/A Ratio 1.11 Mitral Valve MV A Velocity 76.00 (40-130 cm/s) Left Ventricle Technically difficult study, endocardial sounds are very poorly visualized, repeat study with Definity contrast is recommended. Left atrium is mildly enlarged, left ventricle is mildly dilated, probably reduced left ventricular systolic function, visually estimated ejection fraction approximately 35% the left ventricle appears to be globally hypokinetic. Endocardial sounds are very poorly visualized, diastolic parameters are inconclusive. Right Ventricle Right atrium and right ventricle mildly enlarged with normal contractility, there is a pacemaker lead seen in the right ventricle. Aortic Valve Aortic valve is minimally thickened and fibrosed, there is no aortic stenosis or aortic insufficiency. Mitral Valve Mitral valve is grossly normal, there is mild mitral regurgitation. Tricuspid Valve Tricuspid valve is grossly normal, there is mild tricuspid regurgitation, tricuspid regurgitation jet velocity is inadequate for calculation of the right ventricular systolic pressure. Pulmonic Valve Pulmonic valve is poorly visualized. Great Vessels Aortic root is normal size. Pericardium No significant pericardial effusion noted. Conclusion 1. Technically very difficult study, repeat study with Definity contrast is recommended 2. Mildly enlarged left atrium, mildly dilated left ventricle, reduced left ventricular systolic function, visually estimated ejection fraction 35%, left ventricle is globally hypokinetic, endocardial surfaces are poorly visualized. Diastolic parameters are inconclusive. 3. Mild mitral and tricuspid regurgitation 4. No significant pericardial effusion noted. Electronically signed by : Baudilio Odell, 07/14/2019 18:32:03
== END ==
PROVIDERS: PCP Family Medicine; Visit Provider Urology
DX: I42.9 Cardiomyopathy, unspecified (principal); I27.20 Pulmonary hypertension, unspecified; E78.5 Hyperlipidemia, unspecified; I11.9 Hypertensive heart disease without heart failure; Z95.810 Presence of automatic (implantable) cardiac defibrillator
CPT/HCPCS: 93306

== ENCOUNTER → 2019-08-03 09:00 | Outpatient (CLI) | payer BC, SELFPAY ==
--- NOTE | 2019-08-03 09:03 | US_ITS ---
PROCEDURE: US LIVER CLINICAL INDICATION: ELEVATED LIVER ENZYMES COMPARISON: No exams were available for comparison FINDINGS: PANCREAS: Unremarkable. No obvious mass or abnormal fluid collection. No ductal dilatation LIVER: There is increased echogenicity of the liver consistent with fatty liver with poor through transmission of sound. There is appropriate direction of blood flow within the portal vein. RIGHT KIDNEY: Unremarkable. Normal size and echogenicity. No hydronephrosis GALLBLADDER: No gallstones, gallbladder wall thickening, pericholecystic fluid, or biliary dilatation. IMPRESSION: Fatty liver otherwise negative right upper quadrant/hepatic ultrasound Dictated by: Josef Segura MD 08/03/2019 18:40 Electronically signed by Josef Segura MD in [place] 08/03/2019 18:40
== END ==
PROVIDERS: PCP Family Medicine; Visit Provider Nurse Practitioner Family
DX: R74.8 Abnormal levels of other serum enzymes (principal)
CPT/HCPCS: 76705

== ENCOUNTER → 2019-09-04 08:11 | Outpatient (CLI) | payer BC, SELFPAY ==
[2019-09-04 09:31] LABS: Alanine Aminotransferase 31 U/L (12-78); Albumin Level 4.2 g/dl (3.5-5.0); Alkaline Phosphatase 101 U/L (38-126); Aspartate Amino Transferase 26 U/L (14-36); Bilirubin,Direct 0.1 mg/dl (0.0-0.4); Bilirubin,Indirect 0.5 mg/dL (0.0-0.9); Bilirubin,Total 0.6 mg/dl (0.2-1.3); Bilirubin,Unconjugated 0.5 mg/dL (0.0-1.1); Chol/HDL Ratio 2.9 (1-3.5); Cholesterol 171 mg/dl (140-200); HDL Cholesterol 59 mg/dl (40-60); Total Protein,Serum 7.1 g/dl (6.3-8.2); Triglycerides 160 mg/dl (30-150); VLDL Cholesterol 32 mg/dL (0-40)
[2019-09-04 09:43] LABS: Direct LDL Cholesterol 96.06 mg/dL (100-129)
== END ==
PROVIDERS: Visit Provider Urology
DX: E78.5 Hyperlipidemia, unspecified (principal); I10 Essential (primary) hypertension; I27.20 Pulmonary hypertension, unspecified; I42.9 Cardiomyopathy, unspecified; Z86.711 Personal history of pulmonary embolism; Z95.810 Presence of automatic (implantable) cardiac defibrillator
CPT/HCPCS: 36415; 80061; 80076

== ENCOUNTER → 2019-12-21 09:02 | Outpatient (CLI) | payer BC, SELFPAY ==
[2019-12-21 09:52] LABS: Basophils % 0.5 % (0.1-2.0); Eosinophils # 0.3 K/mm3 (0.0-0.4); Eosinophils % 3.7 % (0.1-12.0); Hematocrit 38.8 % (37.0-47.0); Hemoglobin 12.9 g/dL (12.2-16.2); Lymphocytes # 1.6 K/mm3 (0.7-4.5); Lymphocytes % 20.4 % (10-50); Mean Corpuscular HGB Conc 33.2 g/dL (31.8-35.4); Mean Corpuscular Hemoglobin 26.8 pg (27.0-31.2); Mean Corpuscular Volume 80.9 fl (81-99); Mean Platelet Volume 7.7 fl (7.4-10.4); Monocytes # 0.3 K/mm3 (0.1-1.0); Monocytes % 3.7 % (1.7-9.3); Neutrophils # 5.5 K/mm3 (1.8-7.8); Neutrophils % 71.6 % (37.0-80.0); Platelet Count 305 K/mm3 (142-424); Red Cell Distribution Width 14.3 % (11.5-17.5); White Blood Count 7.7 K/mm3 (4.8-10.8)
[2019-12-21 10:12] LABS: Alanine Aminotransferase 27 U/L (12-78); Albumin Level 4.4 g/dl (3.5-5.0); Albumin/Globulin Ratio 1.4 (1.1-1.8); Alkaline Phosphatase 121 U/L (38-126); Anion Gap 14.2 mEq/L (5-15); Aspartate Amino Transferase 23 U/L (14-36); Bilirubin,Total 0.7 mg/dl (0.2-1.3); Blood Urea Nitrogen 11 mg/dl (7-17); Calcium 9.5 mg/dl (8.4-10.2); Carbon Dioxide 27 mmol/L (22.0-30.0); Chloride 102 mmol/L (98-107); Estimated Glomerular Filt Rate 93 ml/min (>60); GFR (African American) 112 ML/MIN (>60); Globulin 3.1 g/dL (1.3-3.2); Glucose 145 mg/dl (74-100); Potassium 4.2 mmoL/L (3.5-5.1); Sodium 139 mmol/L (136-145); Total Protein,Serum 7.5 g/dl (6.3-8.2)
== END ==
PROVIDERS: Visit Provider Internal Medicine
DX: M19.90 Unspecified osteoarthritis, unspecified site (principal)
CPT/HCPCS: 36415; 80053; 85025

== ENCOUNTER → 2020-02-01 07:54 | Outpatient (CLI) | payer BC, SELFPAY ==
[2020-02-01 09:10] LABS: Coronavirus 19 IgG Antibody Positive (Negative); Coronavirus 19 IgM Antibody Negative (Negative)
== END ==
PROVIDERS: Visit Provider Surgery
DX: L72.3 Sebaceous cyst (principal); M79.662 Pain in left lower leg; Z03.818 Encounter for observation for suspected exposure to other biological agents ruled out
CPT/HCPCS: 36415; 86328

== ENCOUNTER 2020-02-03 06:27 | Day surgery (SDC) | payer BC, SELFPAY ==
[2020-02-01 15:16] VITALS: BMI 44.8
[2020-02-03 07:36] VITALS: BP 102/59; PULSE 56; RESP 18; TEMP 36.2; O2SAT 95
[2020-02-03 07:55] LABS: POC Glucose,Bedside 119 (70-110)
--- NOTE | 2020-02-03 07:59 | P.PN_ITS ---
[facility] [place] Anesthesia Checklist - Patient Identification Patient Identification: Arm Band, Verbal (Name & ) - Structural Data Admitted From: Home Planned Operative Procedure/s: ex. leg lesion Consent for Planned Operative Procedure(s) Verified: Yes Verified Documents: History and Physical - NPO Status Verified Time NPO: 00:00 - Chart Verification Results Verified: CBC, BMP - Additional verifications Patient : No Anesthesia Reactions: No Hx Blood Transfusions: No Blood Transfusion Reaction: No Cephalosporin Allergy: No Previous Colonoscopy: No - Cardiovascular Assessment Heart Sounds: S1 & S2 Pulse Strength: Baseline Pulse Rhythm: Regular Peripheral Edema: No - Airway Assessment C-Spine Mobility Assessed: Yes TMJ Mobility Assessed: Yes Dentition: Good Dentition - Neurological Assessment Level of Consciousness: Awake, Alert, Appropriate Hx Seizures: No Numbness or tingling in extremities: No - Anesthesia Plan Anesthesia Risk discussed: Yes Anesthesia Plan: Patient unable to respond/answer ASA Class: IV Anesthesia Type: MAC [facility] [place] History I have reviewed the patient's past medical history: Yes 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: Reports:: Anxiety, Arrhythmia, Cardiomyopathy, Congestive Heart Failure, Diabetes Mellitus Type 2, Hyperlipidemia, Hypertension, Internal Pacemaker, Palpitations, Pulmonary Embolism Denies:: Cancer, Diabetes Mellitus Type 1, MRSA, Seizures *Have you ever received a pneumonia vaccine?: No *Have you received a flu vaccine this season?: No Other 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: Reports: Anemia, Hypothyroidism. Denies: Blood Transfusion Reaction Anesthesia experience/problems:: none Laterality Cases: Bilateral: Tonsillectomy Other Surgeries: Yes: No Previous Surgery, Appendectomy, Cardiac Catheterization, Hysterectomy-Total, Pacemaker, Other Amputation: No Fractures: No - *Social History Smoking Status: Never smoker Alcohol Intake: never Alcohol Intake Frequency:: other Substance Use Type: denies use *Occupational Status:: employed Housing: house Household Members: spouse *Travel in the last 8 weeks: None - Psychiatric History Pschychiatric History:: Reports:: Anxiety Family Hx:: Cancer, Diabetes, Hypertension, Stroke, Thyroid Disorder
[2020-02-03 08:45] VITALS: BP 108/59; PULSE 81; RESP 18; O2SAT 97
--- NOTE | 2020-02-03 08:46 | P.OP_ITS ---
Date of procedure: 02/03/20 Pre-op Diagnosis:: Recurrently inflamed sebaceous cyst on the left lower extremity Post-op Diagnosis:: Same Procedure performed:: Excision of left lower extremity sebaceous cyst (excisional length 2.5 cm) with intermediate complexity closure. Surgeon:: Phoenix Silverman MD FISHING BOAT CAPTAIN:: Eric Gale Anesthesia: MAC, local Estimated blood loss (mL): 5 Clinical Note:: Patient presents for excision of her left lower extremity skin cyst. She is a 39-year-old female originally referred by Kami Reed for cyst on the left l eg and seen in the office on 01/17. She states that she developed an area on her left medial calf area about 20 years ago. This was consistent with a sebaceous cyst. She states it increased in size over time. Recently she had some drainage. However, over the past couple of months she has had intermittent infections. This has been treated with oral antibiotics and topical antibiotics. She was sent for surgical consultation for definitive excision. Of note, patient has a history of cardiomyopathy, hypertension, history of pulmonary embolism, AICD placement, diabetes, pulmonary hypertension. She is on Xarelto. Lometa that this appeared to be an infected sebaceous cyst. I placed her on antibiotics for MRSA coverage consisting of Bactrim and planned follow- up. She states that the tenderness has resolved. She completed 14 days of Bactrim. Operative findings:: Consistent with a chronically inflamed but not infected sebaceous cyst. There was underlying densely adherent vein and branching probable venous structure into the cyst. Operative note:: Patient was taken to the operating room. She was positioned in a supine position. Adequate intravenous sedation was achieved. The area was prepped and draped in the standard surgical fashion. Skin was marked with a skin marker. Local anesthetic was infiltrated. Longitudinal elliptical incision was made incorporating central skin punctum. Careful dissection was carried down through full-thickness of skin. Chronic fibrosis was encountered. However there did appear to be evidence of likely previously ruptured sebaceous cyst. The overlying skin with the underlying apparent sebaceous cyst was dissected free from surrounding structures. There was adherent venous structure. This was able to be dissected free from the overlying cyst. It was preserved. However there was additional structure branching into the cyst and a couple of micro hemoclips were applied. This was sharply divided and the overlying skin ellipse with the adherent cyst was removed and sent off as a specimen. There was good hemostasis. Subdermal tissues were reapproximated with a couple of interrupted 3-0 Vicryl sutures. Skin was closed with interrupted 3-0 nylon. Clean dry sterile dressing was applied. Condition: stable Disposition: PACU Specimens:: Leg cyst Complications:: None immediately apparent
[2020-02-03 08:55] VITALS: BP 93/53; PULSE 65; RESP 18; O2SAT 95
[2020-02-03 09:05] VITALS: BP 103/60; PULSE 69; RESP 18; O2SAT 97
== END 2020-02-03 09:05 ==
LOC: OR 06:28
PROVIDERS: PCP Family Medicine; Visit Provider Surgery
PROC: (CPT 11403; principal; 2020-02-03 08:15)
DX: L72.3 Sebaceous cyst (principal); E11.9 Type 2 diabetes mellitus without complications; I11.0 Hypertensive heart disease with heart failure; I50.9 Heart failure, unspecified; F41.9 Anxiety disorder, unspecified; I42.9 Cardiomyopathy, unspecified; E78.5 Hyperlipidemia, unspecified; Z95.0 Presence of cardiac pacemaker; I26.99 Other pulmonary embolism without acute cor pulmonale; I49.9 Cardiac arrhythmia, unspecified; E03.9 Hypothyroidism, unspecified; D64.9 Anemia, unspecified
CPT/HCPCS: 11403; 12031; 82962; 96374

== ENCOUNTER → 2020-02-12 12:06 | Outpatient (CLI) | payer BC, SELFPAY ==
--- NOTE | 2020-02-12 12:12 | XR_ITS ---
PROCEDURE: XR LUMBAR SPINE MIN 4V CLINICAL INDICATION: ACUTE BILATERAL LOWER BACK PAIN COMPARISON: No exams were available for comparison FINDINGS: No fracture or dislocation. No lytic or blastic change. There is normal mineralization. The joint spaces are well-preserved. No significant degenerative/arthritic changes. No erosive changes evident. Other findings:None. IMPRESSION: Negative lumbar spine Dictated by: Josef Segura MD 02/12/2020 13:59 Josef Segura MD in [place] 02/12/2020 13:59
== END ==
PROVIDERS: PCP Nurse Practitioner Family; Visit Provider Nurse Practitioner Family
DX: M54.5 Low back pain (principal)
CPT/HCPCS: 72110

== ENCOUNTER → 2020-05-10 09:58 | Outpatient (CLI) | payer BC, SELFPAY ==
--- NOTE | 2020-05-10 10:04 | CT_ITS ---
PROCEDURE: CT ABDOMEN PELVIS W CON CLINICAL INDICATION: LT SIDED ABD PAIN Llq x4yrs nausea COMPARISON: CT ABDPELW CT ABD PELVIS W/ CONTRAST from 12/12/2012 TECHNIQUE: IV Contrast: 75ML Isovue 370 Oral Contrast 450ml Redicat Axial images obtained with sagittal and coronal reformats. All CT scans at the facility use one or more dose reduction, viz: automated exposure control, ma/kV adjustment per patient size (including targeted exams where dose is matched to indication, i.e. head), or iterative reconstruction technique. FINDINGS: LOWER THORAX: There are mild atelectatic or fibrotic changes in the lung bases. Artifact is present from cardiac pacemaker device. ABDOMEN & PELVIS: Fatty liver. No radiopaque gallstones apparent. There is a small hiatal hernia. The spleen, pancreas, and adrenal glands and kidneys have an unremarkable appearance. Prior appendectomy. There is a mild amount of retained colonic feces. There are scattered colonic diverticula but no evidence of diverticulitis. There is a small right ovarian cyst at 1.6 cm. There has been a prior hysterectomy. No pelvic or abdominal mass or abnormal fluid collection apparent. IMPRESSION: No acute finding. Please see above for incidental findings Dictated by: Josef Segura MD 05/12/2020 09:12 Josef Segura MD in [place] 05/12/2020 09:12
== END ==
PROVIDERS: PCP Nurse Practitioner Family; Visit Provider Nurse Practitioner Family
DX: R10.9 Unspecified abdominal pain (principal)
CPT/HCPCS: 74177; Q9967

== ENCOUNTER → 2020-07-13 09:33 | Outpatient (CLI) | payer BC, SELFPAY | PROVIDERS: Visit Provider Internal Medicine Gastroenterology | DX: Z01.812 Encounter for preprocedural laboratory examination (principal); Z20.822 Contact with and (suspected) exposure to COVID-19; Z13.810 Encounter for screening for upper gastrointestinal disorder; Z12.2 Encounter for screening for malignant neoplasm of respiratory organs | CPT/HCPCS: U0003 ==

== ENCOUNTER 2020-07-15 06:49 | Day surgery (SDC) | payer BC, SELFPAY ==
[2020-07-06 13:09] VITALS: BMI 43.9
[2020-07-15] VITALS (9 sets, daily range): BP systolic 99–133; BP diastolic 60–85; PULSE 70–101; RESP 18–20; TEMP 36.3–36.4; O2SAT 96–99
--- NOTE | 2020-07-15 09:02 | P.PCN_ITS ---
[facility] Procedure Note Procedure Note:: Colonoscopy Procedure Report: Colonoscopy with cold snare polypectomy and monopolar ablation/coagulation of internal hemorrhoids Endoscopist: Atul Holloway II, MD Referring physician: ABE Tirado/Eric Caraballo MD Date of Procedure: July 15, 2020 Equipment: Olympus 190 variable stiffness pediatric colonoscope Sedation: MAC sedation Indication: Mrs. Smith is a 39-year-old female who has had bright red rectal bleeding and some dark red rectal bleeding. The patient also has had chronic left lower quadrant abdominal pain for years but this is worsening. She reports this is burning and stabbing. She does have some bowel irregularity with constipation that alternates with diarrhea. She often has pasty stools. Her recent hemoglobin 12.4 and hematocrit 38.5 were normal. She had normal liver function (alkaline phosphatase 116, AST 14 and ALT 34). She had a CAT scan on May 12, 2020 that showed scattered left-sided diverticuli but no evidence of diverticulitis. There was a small right ovarian cyst. There was also evidence of retained feces. There was a small hiatal hernia. The pancreas and gallbladder were normal. There was some fatty liver. The patient is on Xarelto (secondary to prior pulmonary embolus x2). She has nausea daily for the last 3 months. Procedure: Prior to the procedure, a history and physical exam was performed, and patient's medications and allergies were reviewed. The risks, benefits and alternatives of the sedation and procedure were discussed with the patient. All questions were answered and informed consent was obtained. The patient was brought to the procedure room. Patient identification and proposed procedure were verified by the physician and the nurse. The patient was placed in a left lateral decubitus position and the scope was passed under direct vision. Throughout the procedure, the patient's blood pressure, pulse, and oxygen saturations were monitored continuously. The colonoscopy was accomplished without difficulty. The patient tolerated the procedure well. Findings: On digital rectal examination there was normal rectal tone. There were no external hemorrhoids. The colonoscope was introduced through the anal canal to the rectum and advanced to the cecum. The ileocecal valve and appendiceal orifice were identified. The scope was advanced a short distance into the ileum which appeared grossly normal. The scope was then withdrawn into the colon. The cecum, ascending and transverse colon and mucosa were grossly normal. There were a few mildly scattered diverticuli throughout the descending and sigmoid colon (LEFT colon). Within the rectum there was a 4 mm polyp removed via cold snare polypectomy. Upon retroflexion within the rectum there were grade 1-2 internal hemorrhoids. 3 columns of internal hemorrhoids were ablated using monopolar ablation/coagulation to destruction. The preparation was excellent throughout with Dalton Preparation Score of 9. The cecal time was 12 minutes. Impression: 1. Diminutive rectal polyp 2. Left-sided diverticulosis 3. Grade 1-2 internal hemorrhoids status post monopolar ablation/coagulation Plan: I will follow up the polyp histology. I am going to recommend dietary measures and fiber bowel regimen. I will discuss the findings with the patient and jasper hylton
--- NOTE | 2020-07-15 17:27 | HMH.ANESCL ---
[facility] Anesthesia Checklist - Patient Identification Patient Identification: Arm Band - Structural Data Admitted From: Home Planned Operative Procedure/s: Colonscopy Consent for Planned Operative Procedure(s) Verified: Yes Verified Documents: Surgical Consent, History and Physical - NPO Status Verified Time NPO: 00:00 - Additional verifications Anesthesia Reactions: No Hx Blood Transfusions: No Blood Transfusion Reaction: No - Airway Assessment C-Spine Mobility Assessed: Yes TMJ Mobility Assessed: Yes Dentition: Good Dentition - Neurological Assessment Level of Consciousness: Awake, Alert - Anesthesia Plan Anesthesia Risk discussed: Yes Anesthesia Plan: Verified ASA Class: III Anesthesia Type: MAC [facility] History 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: Reports:: Anxiety, Arrhythmia, Atrial Fibrillation, Cardiomyopathy, Congestive Heart Failure, Diabetes Mellitus Type 2, Hyperlipidemia, Hypertension, Internal Pacemaker, Palpitations, Pulmonary Embolism Denies:: Cancer, Diabetes Mellitus Type 1, MRSA, Seizures *Have you ever received a pneumonia vaccine?: No *Have you received a flu vaccine this season?: No Other 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: Reports: Anemia, Hypothyroidism. Denies: Blood Transfusion Reaction Anesthesia experience/problems:: None Laterality Cases: Right: Carpal Tunnel Release, Bilateral: Tonsillectomy Other Surgeries: Yes: No Previous Surgery, Appendectomy, Cardiac Catheterization, Hysterectomy-Total, Pacemaker, Other Amputation: No Fractures: No - *Social History Last grade of school completed: High school graduate Smoking Status: Never smoker Alcohol Intake: never Alcohol Intake Frequency:: other Substance Use Type: denies use *Occupational Status:: unemployed Housing: house Household Members: spouse *Travel in the last 8 weeks: None - Psychiatric History Pschychiatric History:: Reports:: Anxiety Family Hx:: Non-contributory
[2020-07-16 11:34] LABS: POC Glucose,Bedside 116 (70-110)
== END 2020-07-15 10:15 | disposition home or self-care (01) ==
LOC: OUTP 06:50
PROVIDERS: PCP Family Medicine; Visit Provider Internal Medicine Gastroenterology
PROC: 0DJD8ZZ Inspection of Lower Intestinal Tract, Via Natural or Artificial Opening Endoscopic (ICD-10-PCS; CPT 45378; principal; 2020-07-15 08:30)
DX: K62.1 Rectal polyp (principal); K57.30 Diverticulosis of large intestine without perforation or abscess without bleeding; K64.0 First degree hemorrhoids; N83.201 Unspecified ovarian cyst, right side; K44.9 Diaphragmatic hernia without obstruction or gangrene; K76.0 Fatty (change of) liver, not elsewhere classified; E11.9 Type 2 diabetes mellitus without complications; E78.5 Hyperlipidemia, unspecified; I10 Essential (primary) hypertension; I48.91 Unspecified atrial fibrillation; Z79.01 Long term (current) use of anticoagulants; Z86.711 Personal history of pulmonary embolism
CPT/HCPCS: 45385; 46930; 82962

== ENCOUNTER → 2020-08-09 07:22 | Outpatient (CLI) | payer BC, SELFPAY ==
--- NOTE | 2020-08-09 07:42 | US_ITS ---
PROCEDURE: US GALLBLADDER CLINICAL INDICATION: RUQ PAIN,NAUSEA COMPARISON: No exams were available for comparison FINDINGS: Pancreas: Unremarkable/Not well seen Liver: Moderate diffuse fatty infiltration. No focal liver lesion. There is appropriate direction of blood flow within a non dilated portal vein. Right kidney: Unremarkable appearing. No hydronephrosis. Gallbladder: No stones are evident. There is no gallbladder wall thickening. Common duct is normal in diameter. Small amount of sludge noted in the gallbladder. IMPRESSION: Small amount of sludge in the gallbladder. No cholelithiasis or bile duct dilatation. Moderate diffuse fatty infiltration of the liver. Dictated by: Chicho Bañuelos 08/09/2020 10:42 Chicho Bañuelos in [place] 08/09/2020 10:42
== END ==
PROVIDERS: PCP Family Medicine; Visit Provider Nurse Practitioner Family
DX: R10.11 Right upper quadrant pain (principal); R11.0 Nausea
CPT/HCPCS: 76705

== ENCOUNTER → 2020-08-24 09:49 | Outpatient (CLI) | payer BC, SELFPAY ==
--- NOTE | 2020-08-24 09:52 | NM_ITS ---
PROCEDURE: NM HEPATOBILIARY W PHARM CLINICAL INDICATION: RUQ ABD PAIN, NAUSEA COMPARISON: US US GALLBLADDER from 08/09/2020 TECHNIQUE: DOSE: 5.02 mCi technetium Choletec and 2.4 mcg of CCK FINDINGS: Homogeneous activity is present within the hepatic parenchyma. Activity is present in the gallbladder by 5 minutes. Activity is present in the small bowel by 5 minutes. The gallbladder ejection fraction is calculated to be 91 percent. Pain and nausea reported with CCK infusion IMPRESSION: Unremarkable a hepatobiliary scan with normal gallbladder ejection fraction. Dictated by: Josef Segura MD 08/24/2020 14:49 Josef Segura MD in [place] 08/24/2020 14:49
== END ==
PROVIDERS: PCP Nurse Practitioner Family; Visit Provider Nurse Practitioner Family
DX: R10.11 Right upper quadrant pain (principal); R11.0 Nausea
CPT/HCPCS: 78227; A9537; J2805

== ENCOUNTER → 2020-09-05 14:11 | Outpatient (POV) | payer BC, SELFPAY | PROVIDERS: Visit Provider Nurse Practitioner Family | DX: Z00.00 Encounter for general adult medical examination without abnormal findings (principal) ==

== ENCOUNTER → 2020-11-11 11:38 | Outpatient (CLI) | payer BC, SELFPAY | PROVIDERS: Visit Provider Internal Medicine Gastroenterology | DX: Z01.812 Encounter for preprocedural laboratory examination (principal); Z20.822 Contact with and (suspected) exposure to COVID-19; Z13.810 Encounter for screening for upper gastrointestinal disorder | CPT/HCPCS: C9803; U0003; U0005 ==

== ENCOUNTER 2020-11-14 06:43 | Day surgery (SDC) | payer BC, SELFPAY ==
[2020-11-09 11:06] VITALS: BMI 44.6
[2020-11-14 07:19] VITALS: BP 110/67; PULSE 86; RESP 16; TEMP 37.4; O2SAT 96
[2020-11-14 07:48] LABS: POC Glucose,Bedside 132 (70-110)
--- NOTE | 2020-11-14 08:19 | P.PN_ITS ---
[facility] Anesthesia Checklist - Patient Identification Patient Identification: Arm Band - Structural Data Admitted From: Home Planned Operative Procedure/s: EGD Consent for Planned Operative Procedure(s) Verified: Yes - NPO Status Verified Time NPO: 00:00 - Additional verifications Anesthesia Reactions: No Hx Blood Transfusions: No Blood Transfusion Reaction: No - Airway Assessment C-Spine Mobility Assessed: Yes TMJ Mobility Assessed: Yes Dentition: Good Dentition - Neurological Assessment Level of Consciousness: Awake Hx Seizures: No Numbness or tingling in extremities: No - Anesthesia Plan Anesthesia Risk discussed: Yes Anesthesia Plan: Verified ASA Class: III Anesthesia Type: MAC [facility] History I have reviewed the patient's past medical history: Yes 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: Reports:: Anxiety, Arrhythmia, Atrial Fibrillation, Cardiomyopathy, Congestive Heart Failure, Deep Vein Thrombosis, Diabetes Mellitus Type 2, Hyperlipidemia, Hypertension, Internal Pacemaker, Palpitations, Pulmonary Embolism Denies:: Cancer, Diabetes Mellitus Type 1, MRSA, Seizures *Have you ever received a pneumonia vaccine?: No *Have you received a flu vaccine this season?: No Other 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: Reports: Anemia, Hypothyroidism. Denies: Blood Transfusion Reaction Anesthesia experience/problems:: None Laterality Cases: Right: Carpal Tunnel Release, Bilateral: Tonsillectomy, Total Hip Replacement Other Surgeries: Yes: No Previous Surgery, Appendectomy, Cardiac Catheterization, Hysterectomy-Total, Pacemaker, Other Amputation: No Fractures: No - *Social History Last grade of school completed: Some college Smoking Status: Never smoker Alcohol Intake: never Alcohol Intake Frequency:: other Substance Use Type: denies use *Occupational Status:: unemployed Housing: house Household Members: spouse *Travel in the last 8 weeks: None - Psychiatric History Pschychiatric History:: Reports:: Anxiety Family Hx:: Cancer, Diabetes, Hypertension, Stroke, Thyroid Disorder
[2020-11-14 08:36] VITALS: O2SAT 99
--- NOTE | 2020-11-14 08:42 | HMH.PROC ---
[facility] Procedure Note Procedure Note:: Upper Endoscopy Procedure Report: Esophagogastroduodenoscopy with cold biopsies and TTS balloon dilation Endoscopost: Atul Holloway II, MD Referring Physician: ABE Tirado Date of Procedure: November 14, 2020 Equipment: Olympus GIF 190 standard upper endoscope Sedation: MAC sedation Indications: Mrs. Smith is a 40-year-old female with some longer standing IBS with alternating constipation and diarrhea. She did have a colonoscopy with pr on July 15, 2020. She did have left-sided diverticulosis. She also had a diminutive hyperplastic polyp removed. She was having bright red rectal bleeding secondary to internal hemorrhoidal bleeding and the hemorrhoids were ablated/coagulated. The patient has had no further bleeding. She is taking the combined fiber bowel regimen (MiraLAX plus Metamucil mixed together by mouth every morning). Her bowel function is improved. She still gets some left lower quadrant abdominal discomfort. However, she has started getting right upper quadrant abdominal pain and discomfort that can radiate into the back and shoulder. This can also radiate into the periumbilical region. She does get some nausea and minor bloating. She reports no belching, heartburn or reflux. She does get some dysphagia to both solids and liquids. The patient's right upper quadrant abdominal ultrasound was normal. The patient's HIDA scan showed a 91% ejection fraction. She did get right upper quadrant pain and nausea with the Kinevac/CCK injection. This is her first upper endoscopy. Procedure: Prior to the procedure, a history and physical exam was performed, and patient's medications and allergies were reviewed. The risks, benefits and alternatives of the sedation and procedure were discussed with the patient. All questions were answered and informed consent was obtained. The patient was brought to the procedure room. Patient identification and proposed procedure were verified by the physician and the nurse. The patient was placed in a left lateral decubitus position and the scope was passed under direct vision. Throughout the procedure, the patient's blood pressure, pulse, and oxygen saturations were monitored continuously. The upper GI endoscopy was accomplished without difficulty. The patient tolerated the procedure well. Findings: The scope was passed directly into the upper esophagus and advanced to the third portion of the duodenum. The post bulbar duodenum and duodenal bulb were normal with normal mucosa and conniventes. Cold biopsies were taken from the post bulbar duodenum to rule out celiac disease. The scope was withdrawn through a normal duodenal bulb and pylorus into the stomach. There was prepyloric gastric ulceration x4 (superficial gastric ulceration) with evidence of antral gastropathy. There was evidence of of gastric stasis of liquid and solid content (i.e. gastric dysmotility) with some fat micelles in the body and fundus. The remainder of the body and fundus of the stomach were grossly normal. Upon retroflexion there was no hiatal hernia. 2 biopsies were taken in the antrum and along the lesser curvature for histology to rule out gastritis and/or H pylori. The scope was then withdrawn into the esophagus. There was no evidence of reflux esophagitis or Beltran's. There were tertiary contractions and evidence of moderate esophageal dysmotility. The entire esophagus was dilated to 60 Faroese/20 mm with a TTS hydrostatic balloon. There was some resistance at the cricopharyngeus. The remainder of the esophageal mucosa was normal. Impression: 1. Nonerosive GERD with moderate esophageal dysmotility and cricopharyngeal spasm status post dilation to 20 mm 2. Prepyloric gastric ulcerations (rule out NSAID gastropathy) 3. Gastric dysmotility?rule out gastroparesis Plan: I will follow-up the biopsies to rule out H. pylori. 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 I would
[2020-11-14 08:58] VITALS: BP 122/64; PULSE 85; RESP 12; TEMP 36.2; O2SAT 91
[2020-11-14 09:08] VITALS: BP 116/68; PULSE 84; RESP 16; O2SAT 94
[2020-11-14 09:18] VITALS: BP 104/69; PULSE 85; RESP 16; O2SAT 95
[2020-11-14 09:28] VITALS: BP 109/55; PULSE 71; RESP 16; TEMP 36.2; O2SAT 95
== END 2020-11-14 09:30 | disposition home or self-care (01) ==
LOC: OUTP 06:45
PROVIDERS: PCP Nurse Practitioner Family; Visit Provider Internal Medicine Gastroenterology
PROC: 0DJ08ZZ Inspection of Upper Intestinal Tract, Via Natural or Artificial Opening Endoscopic (ICD-10-PCS; CPT 43235; principal; 2020-11-14 08:30)
DX: K21.9 Gastro-esophageal reflux disease without esophagitis (principal); J39.2 Other diseases of pharynx; K25.9 Gastric ulcer, unspecified as acute or chronic, without hemorrhage or perforation; K59.01 Slow transit constipation; K58.2 Mixed irritable bowel syndrome; Z87.19 Personal history of other diseases of the digestive system; I48.91 Unspecified atrial fibrillation; E11.9 Type 2 diabetes mellitus without complications; I10 Essential (primary) hypertension; E78.5 Hyperlipidemia, unspecified; I42.9 Cardiomyopathy, unspecified; Z86.718 Personal history of other venous thrombosis and embolism
CPT/HCPCS: 43239; 43249; 82962; C1726; J2704

== ENCOUNTER → 2020-11-17 11:49 | Outpatient (CLI) | payer BC, SELFPAY ==
[2020-11-17 13:42] LABS: Blood Urea Nitrogen 11 mg/dl (7-17); Estimated Glomerular Filt Rate 110 ml/min (>60); GFR (African American) 133 ML/MIN (>60)
== END ==
PROVIDERS: Visit Provider Nurse Practitioner Family
DX: M19.90 Unspecified osteoarthritis, unspecified site (principal)
CPT/HCPCS: 36415; 82565; 84520

== ENCOUNTER → 2020-11-18 06:01 | Outpatient (CLI) | payer BC, SELFPAY ==
--- NOTE | 2020-11-18 06:02 | CA_ITS ---
APPROVED REPORT EXAM: Comprehensive 2D, Doppler, and color-flow Echocardiogram [employer] Manager: Windy Esteban RT(R) Ht: 5 ft 3 in Wt: 270lbs BSA: 2.20 BP: 107/71 mmHg Indications: CP, HTN, SOB, obesity, Hyperlipidemia, CM, AICD, PHTN, hx PE, dizziness Echo Enhancing Agent Indication: Endocardial border delineation Agent(s) / Amount(s) Used: Definity 2 cc 2D Dimensions LA Volume 29.30 mL LA Volume Index 13.37 mL/m2 (M/F) 16-34 M-Mode Dimensions RVDd 2.41 cm (0.9-2.6) LA Diam 2.83 cm (1.9-4.0) LVDd 6.48 cm (3.5-5.7) Ao Diam 2.48 cm (2.0-3.7) LVDs 5.99 cm (3.5-5.7) IVSd 0.72 cm (0.6-1.1) PWd 0.85 cm (0.6-1.1) EF (Teich) 16.40% FS 7.60% EDV (Teich) 214.50 mL ESV (Teich) 179.30 mL LV Diastology E Decel Time 193.00 (160-240 msec) E/A Ratio 0.9 MED E' 10.70 (< 7 cm/sec) E'/MED E' Ratio 6.81 (>14) LAT E' 8.30 (<10 cm/sec) E/LAT E' Ratio 8.78 (>14) Mitral Valve MV E Max Caio. 73.00 (40-130 cm/s) MV A Velocity 84.00 (40-130 cm/s) E/A Ratio 0.87 MV Decel. Time 193.00 (160-240 ms) MV PHT 57.00 ms Tricuspid Valve TR P. Velocity 241.00 cm/s RAP Estimate 10.00 mmHg RVSP 33.20 mmHg Left Ventricle Technically difficult study, Definity contrast was utilized to delineate the endocardial surfaces. Left ventricle is mildly dilated, visually estimated ejection fraction 30%, there is abnormal septal motion. Diastolic parameters are inconclusive. Right Ventricle Right atrium and right ventricle are normal size and contractility, there is pacemaker/AICD lead seen in right atrium and right ventricle. Contractility of the right ventricle is normal. Aortic Valve Aortic valve is minimally thickened and fibrosed, there is no aortic stenosis or aortic insufficiency. Mitral Valve Mitral valve grossly normal, there is trace mitral regurgitation. Tricuspid Valve Tricuspid valve grossly normal, there is mild tricuspid regurgitation. Pulmonic Valve Pulmonic valve is poorly visualized. Great Vessels Aortic root is normal size. Inferior vena cava is not visualized Pericardium No significant pericardial effusion noted. Conclusion 1. Technically difficult study, Definity contrast was utilized to delineate the endocardial surfaces. 2. Mildly dilated left ventricle, visually estimated ejection fraction 30%, there is abnormal septal motion. Diastolic parameters are inconclusive. There is no left ventricular thrombus seen. 3. Mild mitral and tricuspid regurgitation. Calculated right ventricular systolic pressure 33 mmHg. 4. No significant pericardial effusion noted. 5. No significant pericardial effusion noted. Electronically signed by : Baudilio Odell MD 11/18/2020 14:09:04
== END ==
PROVIDERS: PCP Nurse Practitioner Family; Visit Provider Nurse Practitioner Family
DX: I20.9 Angina pectoris, unspecified (principal); I11.0 Hypertensive heart disease with heart failure; I50.22 Chronic systolic (congestive) heart failure; I27.20 Pulmonary hypertension, unspecified; E78.5 Hyperlipidemia, unspecified; I42.9 Cardiomyopathy, unspecified; Z86.711 Personal history of pulmonary embolism; Z95.810 Presence of automatic (implantable) cardiac defibrillator
CPT/HCPCS: 93306; Q9957

== ENCOUNTER → 2020-12-02 07:54 | Outpatient (CLI) | payer BC, SELFPAY ==
[2020-12-02 09:20] LABS: Chloride 98 mmol/L (98-107); Potassium 4.4 mmoL/L (3.5-5.1); Sodium 136 mmol/L (136-145)
[2020-12-02 09:23] LABS: Anion Gap 15.4 mEq/L (5-15); Blood Urea Nitrogen 9 mg/dl (7-17); Carbon Dioxide 27 mmol/L (22.0-30.0); Estimated Glomerular Filt Rate 136 ml/min (>60); GFR (African American) 165 ML/MIN (>60)
[2020-12-02 09:24] LABS: Calcium 9.4 mg/dl (8.4-10.2); Glucose 211 mg/dl (74-100)
== END ==
PROVIDERS: Visit Provider Nurse Practitioner Family
DX: R42 Dizziness and giddiness (principal); R07.9 Chest pain, unspecified; R06.00 Dyspnea, unspecified; I11.0 Hypertensive heart disease with heart failure; I27.20 Pulmonary hypertension, unspecified; I42.9 Cardiomyopathy, unspecified; I50.22 Chronic systolic (congestive) heart failure; E78.5 Hyperlipidemia, unspecified; Z86.711 Personal history of pulmonary embolism; Z95.810 Presence of automatic (implantable) cardiac defibrillator
CPT/HCPCS: 36415; 80048

== ENCOUNTER → 2021-03-13 08:17 | Outpatient (CLI) | payer BC, SELFPAY ==
[2021-03-13 08:59] LABS: Basophils # 0.1 K/mm3 (0-0.2); Basophils % 1.1 % (0.1-2.0); Eosinophils # 0.6 K/mm3 (0.0-0.4); Eosinophils % 6.5 % (0.1-12.0); Hematocrit 40.8 % (37.0-47.0); Hemoglobin 13.4 g/dL (12.2-16.2); Mean Corpuscular HGB Conc 32.8 g/dL (31.8-35.4); Mean Corpuscular Hemoglobin 26.2 pg (27.0-31.2); Mean Corpuscular Volume 79.9 fl (81-99); Mean Platelet Volume 7.9 fl (7.4-10.4); Monocytes # 0.4 K/mm3 (0.1-1.0); Monocytes % 4.5 % (1.7-9.3); Neutrophils # 6.7 K/mm3 (1.8-7.8); Neutrophils % 67.8 % (37.0-80.0); Platelet Count 338 K/mm3 (142-424); Red Blood Count 5.11 M/mm3 (4.20-5.40); Red Cell Distribution Width 14.2 % (11.5-17.5); White Blood Count 9.9 K/mm3 (4.8-10.8)
[2021-03-13 10:31] LABS: Alanine Aminotransferase 34 U/L (12-78); Albumin Level 4.4 g/dl (3.5-5.0); Albumin/Globulin Ratio 1.7 (1.1-1.8); Alkaline Phosphatase 103 U/L (38-126); Anion Gap 12.9 mEq/L (5-15); Aspartate Amino Transferase 36 U/L (14-36); Bilirubin,Total 0.6 mg/dl (0.2-1.3); Blood Urea Nitrogen 7 mg/dl (7-17); Calcium 9.4 mg/dl (8.4-10.2); Carbon Dioxide 28 mmol/L (22.0-30.0); Chloride 100 mmol/L (98-107); Estimated Glomerular Filt Rate 110 ml/min (>60); GFR (African American) 133 ML/MIN (>60); Globulin 2.6 g/dL (1.3-3.2); Glucose 170 mg/dl (74-100); Potassium 3.9 mmoL/L (3.5-5.1); Sodium 137 mmol/L (136-145)
== END ==
PROVIDERS: PCP Nurse Practitioner Family; Visit Provider Surgery
DX: Z01.812 Encounter for preprocedural laboratory examination (principal); Z11.52 Encounter for screening for COVID-19; K82.9 Disease of gallbladder, unspecified
CPT/HCPCS: 36415; 80053; 85025; C9803; U0003; U0005

== ENCOUNTER 2021-03-14 06:54 | Day surgery (SDC) | payer BC, SELFPAY ==
[2021-03-10 12:29] VITALS: BMI 44.9
[2021-03-14] VITALS (13 sets, daily range): BP systolic 114–150; BP diastolic 68–94; PULSE 78–101; RESP 12–18; TEMP -16.6–43; O2SAT 93–97
--- NOTE | 2021-03-14 09:10 | HMH.ANESCL ---
[facility] Anesthesia Checklist - Patient Identification Patient Identification: Arm Band - Structural Data Admitted From: Home Planned Operative Procedure/s: Lap. cholecystectomy Consent for Planned Operative Procedure(s) Verified: Yes - NPO Status Verified Time NPO: 00:00 - Additional verifications Anesthesia Reactions: No Hx Blood Transfusions: No Blood Transfusion Reaction: No - Airway Assessment C-Spine Mobility Assessed: Yes TMJ Mobility Assessed: Yes Dentition: Good Dentition - Neurological Assessment Level of Consciousness: Awake Hx Seizures: No Numbness or tingling in extremities: No - Anesthesia Plan Anesthesia Risk discussed: Yes Anesthesia Plan: Verified ASA Class: III Anesthesia Type: General [facility] History I have reviewed the patient's past medical history: Yes 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: Reports:: Anxiety, Arrhythmia, Atrial Fibrillation, Cardiomyopathy, Congestive Heart Failure, Deep Vein Thrombosis, Diabetes Mellitus Type 2, Hyperlipidemia, Hypertension, Internal Pacemaker, Palpitations, Pulmonary Embolism Denies:: Cancer, Diabetes Mellitus Type 1, MRSA, Seizures *Have you ever received a pneumonia vaccine?: No *Have you received a flu vaccine this season?: No Other 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: Reports: Anemia, Hypothyroidism. Denies: Blood Transfusion Reaction Anesthesia experience/problems:: None Laterality Cases: Right: Carpal Tunnel Release, Bilateral: Tonsillectomy, Total Hip Replacement Other Surgeries: Yes: No Previous Surgery, Appendectomy, Cardiac Catheterization, Hysterectomy-Total, Pacemaker, Other Amputation: No Fractures: No - *Social History Last grade of school completed: High school graduate Smoking Status: Never smoker Alcohol Intake: never Alcohol Intake Frequency:: other Substance Use Type: denies use *Occupational Status:: unemployed Housing: house Household Members: spouse *Travel in the last 8 weeks: None - Psychiatric History Pschychiatric History:: Reports:: Anxiety Family Hx:: Diabetes, Kidney Disease
--- NOTE | 2021-03-14 11:07 | HMH.OPNOTE ---
Date of procedure: 03/14/21 Pre-op Diagnosis:: Gallbladder disease Post-op Diagnosis:: Same Procedure performed:: Laparoscopic cholecystectomy Surgeon:: Phoenix Silverman MD CITY SANITARIAN:: Chico Knox Anesthesia: GETA Estimated blood loss (mL): 15 Clinical Note:: Patient is a 40-year-old female with history of Atrial Fibrillation, Cardiomyopathy, Congestive Heart Failure, Deep Vein Thrombosis, Diabetes Mellitus Type 2, Hyperlipidemia, Hypertension, Internal Pacemaker, Palpitations and Pulmonary Embolism referred by Marian Goodwin and Dr. Holloway for cholecystectomy. For several months she has had symptoms consistent with biliary colic. She describes right upper quadrant pain radiating into her back and shoulder. This seems to be worse with fatty and spicy type foods such as Ethiopian food. She does have some ongoing right upper quadrant discomfort. She had undergone a gallbladder ultrasound on 08/09/2020 which revealed minimal sludge with no evidence of any stones. She had a HIDA scan done on 08/24/2020 which revealed ejection fraction of 91% with CCK with some nausea and pain (reported as severe) with CCK administration. Dr. Holloway had performed colonoscopy in June 2020 and she had some diverticulosis. 10-year follow-up colonoscopy was recommended. Dr. Shea performed EGD on 11/15/2020 and she was found to have nonerosive GERD with moderate esophageal dysmotility, cricopharyngeal spasm, prepyloric gastric ulcerations, and findings of gastric dysmotility. Recommendation was for omeprazole plus misoprostol and avoidance of NSAIDs for likely NSAID gastropathy. Given her ongoing symptoms of right upper quadrant pain despite thorough work-up it was felt that she may have gallbladder colic and typical gallbladder hyperkinesia . She has been treated for visceral hypersensitivity. Given patient's persistent symptoms, despite medical maximum management and GI work-up, of postprandial right upper quadrant pain with associated nausea consistent with biliary disease, she was referred for surgical consultation for cholecystectomy. I had a long discussion with the patient. Certainly sounded like her symptoms were consistent with biliary colic although work-up was equivocal. She had undergone thorough investigation and management via gastroenterology with ongoing symptoms. I offered her options including cholecystectomy although I did inform her that she may have a multifactorial etiology for her symptoms and cholecystectomy may not alleviate her symptoms. She wished to pursue surgery. Operative findings:: She had some significant hepatic steatosis and hepatomegaly. Gallbladder was somewhat distended. There was minimal omental adhesions to the gallbladder. Operative note:: Patient was taken to the operating room. She was given preoperative intravenous antibiotics. In the operating room she was placed in a supine position. General anesthesia was induced via endotracheal tube. Abdomen was prepped and draped in the standard surgical fashion. Subumbilical skin incision was made and while performing abdominal wall lift Veress needle was inserted. CO2 pneumoperitoneum was achieved to 15 mmHg. This was ultimately increased to 20 mmHg in an effort to help with visualization. 11 mm optical trocar was inserted at the umbilicus. Intraperitoneal contents were visualized. She was positioned in reverse Trendelenburg left side down. A couple 5 mm trochars were inserted in the right upper abdomen. 10 mm trocar was inserted in the epigastrium. Liver was elevated. She did have some appreciable significant hepatic steatosis and some hepatomegaly. Gallbladder was grasped and retracted anteriorly over the dome of the liver. Due to the large fatty liver, dissection at the neck of the gallbladder and identifying structures was somewhat difficult and a prolonged process. There were some omental adhesions to the gallbladder which were taken down using blunt dissection. Bl
--- NOTE | 2021-03-14 11:16 | HMH.ANESI ---
[facility] Anesthesia Record Part I Intake, IV Amount: 1,000 Estimated blood loss (mL): 10 Urine output (mL): 0 Blood Pressure: 150/68 SaO2: 94 Pulse Rate: 100 Respiratory Rate: 16 Temperature: 99.7 F Patient is:: Drowsy, Stable Stable to PACU at:: 11:15
--- NOTE | 2021-03-14 12:15 | SUR.PHASEI ---
BS obtained during PACU with a result of 190
[2021-03-14 12:20] LABS: POC Glucose,Bedside 190 (70-110)
--- NOTE | 2021-03-14 14:26 | P.PN_ITS ---
[facility] Anesthesia Record Part II Discharge Time: 11:59 Destination: Surgical Day Care (OP Surgery) PACU nurse assessment reviewed?: Yes Patient Condition:: Good Anesthesia Complications:: None Swallowing reflex intact?: Yes Cyanosis?: No Blood Pressure: 126/78 Pulse Rate: 84 Temperature: 2 F Mental Status: Alert & Oriented Pain level:: 0 Nausea and/or vomitting:: None Intake, IV Amount: 0
[2021-11-23 10:56] LABS: POC Glucose,Bedside 171 (70-110)
== END 2021-03-14 12:30 | disposition home or self-care (01) ==
LOC: OR 06:55
PROVIDERS: PCP Nurse Practitioner Family; Visit Provider Surgery
PROC: 0FT44ZZ Resection of Gallbladder, Percutaneous Endoscopic Approach (ICD-10-PCS; CPT 47562; principal; 2021-03-14 09:00)
DX: K82.9 Disease of gallbladder, unspecified (principal); K76.0 Fatty (change of) liver, not elsewhere classified; K66.0 Peritoneal adhesions (postprocedural) (postinfection); F41.9 Anxiety disorder, unspecified; I48.91 Unspecified atrial fibrillation; I49.9 Cardiac arrhythmia, unspecified; I42.9 Cardiomyopathy, unspecified; I50.9 Heart failure, unspecified; E11.9 Type 2 diabetes mellitus without complications; E78.5 Hyperlipidemia, unspecified; I11.0 Hypertensive heart disease with heart failure; Z95.0 Presence of cardiac pacemaker; R00.2 Palpitations; Z86.718 Personal history of other venous thrombosis and embolism; Z86.711 Personal history of pulmonary embolism
CPT/HCPCS: 47562; 82962; 96374; J2405; J2710

== ENCOUNTER → 2021-07-20 07:04 | Outpatient (CLI) | payer BC, SELFPAY ==
--- NOTE | 2021-07-20 | CA_ITS ---
APPROVED REPORT Exam: Pharmacologic Technologist: Erica Hansen, Ht: 5 ft 3 in Wt: 263 lbs BSA: 2.17 m2 Rhythm: VENTRICULAR PACED RHYTHM Indications: SOA, FATIGUE 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: HTN, Hyperlipidemia Medications: Omeprazole,,,,, Levothyroxine,,,,, Simvastatin,,,,, Metformin,,,,, Gabapentin,,,,, Carvedilol,,,,, Buspirone,,,,, Tramadol,,,,, Vit D3,,,,, BiOTIN,,,,, SpirOnolactone,,,,, Hydroxyzine,,,,, Allergies: No known drug allergies Cardiac Risk Factors: HTN, Hyperlipidemia Stress Test Details Test: LEXISCAN HR Resting HR: 97 bpm Max Heart Rate (APMHR): 179.056821 bpm Max HR Achieved: 124 bpm Target HR (85% APMHR): 152.555800 bpm % of APMHR: 69.27 Recovery HR: 103 bpm BP Resting BP: 134/96 mmHg Max BP: 147/89 mmHg Recovery BP: 136.0/84.0 mmHg ECG Resting ECG: VENTRICULAR PACED RHYTHM Clinical Exercise duration: 04:02 min Highest Stage Achieved: Exercise capacity: 1.0 METs Stress ECG Conclusion PT HAD MILD CHEST DISCOMFORT, SOA, AND HEADACHE. PERIODS OF APPARENT TANACROSS RHYTHM AT HIGHER HEART RATES. RARE PVC. ST-T CHANGES ASSOCIATED WITH PERIODS OF TANACROSS RHYTHM. NON DIAGNOSTIC LEXISCAN STRESS. MYOVIEW IMAGES REPORTED SEPARTELY. Test Summary REST 02:45 . . 97 . 134/ 96 . . Stage 1 01:00 . . 124 . . . . Stage 2 01:00 . . 113 . 147/ 89 . . Stage 3 01:00 . . 112 . 131/ 88 . . Stage 4 01:00 . . 106 . 135/ 85 . . Stage 4 01:02 . . 106 . 135/ 85 . Stop exercise at 04:02 RECOVERY 01:00 . . 91 . . . . RECOVERY 02:00 . . 89 . . . . RECOVERY 03:00 . . 99 . 145/ 87 . . RECOVERY 03:18 . . 94 . 136/ 84 . . Electronically signed by : Baudilio Odell MD 07/21/2021 10:01:15
--- NOTE | 2021-07-20 07:11 | NM_ITS ---
APPROVED REPORT Exam: Nuclear Stress Test Indication: short of breath..fatigue Patient Location: Outpatient Stress Tech: Eugenie Lira MT Tech:Jen DrakeMEGAN RT(R)(N) Ht: 5 ft 3 in Wt: 261 lbs Bra Size: 3x HR: 97 bpm BP: 134/96 mmHg BSA: 2.17 m2 TID: 1.08 BMI: 46.2 History: short of breath..fatigue Procedure: Patient received a 0.4 mg of intravenous Lexiscan, resting heart rate 97 bpm, resting blood pressure 134/96 mmHg, with Lexiscan maximum heart rate achived was 124 bpm which is Less than 85 % of the maximum predicted heart rate and blood pressure was 147/89 mmHg. With Lexiscan, patient denied any complaint of chest pain. The pt is unable to lay on her belly. Electrocardiogram Resting electrocardiogram showed electronically paced rhythm, with Lexiscan there is less than 1.[address] segment depression noted from the baseline EKG. The EKG portion of the Lexiscan is nondiagnostic. Cardiac Stress and Resting SPECT Images: Cardiac Stress and Resting SPECT images were obtained using technetium 99m Myoview 32.4 mCi stress and 10.97 mCi at rest. Gated SPECT for analysis of segmental wall motion and calculation of the ejection fraction also done. Cardiac stress and rest SPECT images show a moderate to large sized area of partially reversible defect involving the anterior, anterior apical, apex and anterolateral wall consistent with mixed ischemia and scar, computer derived ejection fraction is 25% with marked hypokinesis involving the anterior, anterior apical, apex and anterolateral wall. Right ventricle is mildly enlarged with normal contractility. Conclusion: 1. The EKG portion of the Lexiscan is nondiagnostic. 2. Scintigraphic evidence of mixed ischemia and scar moderate to large sized area involving the anterior, anterior apical, apex and anterolateral wall, computer derived ejection fraction is 25% with multiple segmental wall motion abnormalities described above, right ventricle is mildly enlarged with normal contractility. 3. Abnormal Lexiscan Myoview study. Electronically signed by : Baudilio Odell MD 07/21/2021 10:05:21
--- NOTE | 2021-07-20 07:46 | CA_ITS ---
APPROVED REPORT EXAM: Comprehensive 2D, Doppler, and color-flow Echocardiogram [employer] Services Manager: Mary Pablo CRT Ht: 5 ft 3 in Wt: 263lbs BSA: 2.17 BP: 120/79 mmHg Indications: CM, SOB Shortness of Breath, Fatigue, Hyperlipidemia, Hypertension/HDD Echo Enhancing Agent Indication: Endocardial border delineation Agent(s) / Amount(s) Used: Definity 2 cc 2D Dimensions LVOT 1.71 cm (M/F) 1.5-2.5 M-Mode Dimensions RVDd 2.20 cm (0.9-2.6) LA Diam 2.90 cm (1.9-4.0) LVDd 6.40 cm (3.5-5.7) Ao Diam 3.83 cm (2.0-3.7) LVDs 4.91 cm (3.5-5.7) IVSd 1.31 cm (0.6-1.1) PWd 0.85 cm (0.6-1.1) EF (Teich) 45.60% FS 23.30% EDV (Teich) 208.50 mL TAPSE 2.04 (<1.7) ESV (Teich) 113.40 mL LV Diastology E Decel Time 150.00 (160-240 msec) E/A Ratio 3.13 MED E' 99.70 (< 7 cm/sec) MED A' 17.30 cm/s E'/MED E' Ratio 0.91 (>14) LAT E' 5.10 (<10 cm/sec) LAT A' 11.40 cm/s E/LAT E' Ratio 17.76 (>14) Aortic Valve AO Peak GR. 5.10 mmHg Mitral Valve MV E Max Caio. 91.00 (40-130 cm/s) MV A Velocity 29.00 (40-130 cm/s) E/A Ratio 3.13 MV Decel. Time 150.00 (160-240 ms) MV PHT 44.00 ms Pulmonary Valve PV Peak Velocity 94.00 (50-150 cm/s) Tricuspid Valve TR P. Velocity 183.00 cm/s RAP Estimate 10.00 mmHg RVSP 23.30 mmHg Left Ventricle Left atrium is mildly enlarged, left ventricle is mildly dilated, visually estimated ejection fraction 30%, there is marked hypokinesis involving mid to distal septum, anterior and anterior apical wall, there is no left ventricular thrombus seen, Definity contrast was utilized to delineate the endocardial surfaces, grade 1 diastolic dysfunction seen without tissue Doppler evidence of raise left atrial pressure. Right Ventricle Right atrium and right ventricle are normal size and contractility. Aortic valve is minimally thickened and fibrosed there is no aortic stenosis or aortic insufficiency. Mitral Valve Mitral valve grossly normal, there is trace mitral regurgitation. Tricuspid Valve Tricuspid grossly normal, there is trace tricuspid regurgitation, tricuspid rotation jet velocity is inadequate for calculation of the right ventricular systolic pressure. Pulmonic Valve Pulmonic valve is poorly visualized. Great Vessels Aortic root is normal size. Inferior vena cava is poorly visualized. Pericardium No significant pericardial effusion noted. Conclusion 1. Mildly enlarged left atrium, mildly dilated left ventricle, reduced left ventricular systolic function, visually estimated ejection fraction 30% with multiple segmental wall motion abnormality described above, Definity contrast was utilized to delineate the endocardial surfaces, there is no left ventricular thrombus seen, grade 1 diastolic dysfunction seen without tissue Doppler evidence of raise left atrial pressure. 2. Trace mitral and tricuspid regurgitation. 3. No significant pericardial effusion noted. Electronically signed by : Baudilio Odell MD 07/21/2021 13:50:57
== END ==
PROVIDERS: PCP Nurse Practitioner Family; Visit Provider Nurse Practitioner Family
DX: I42.9 Cardiomyopathy, unspecified (principal); R06.00 Dyspnea, unspecified; I20.9 Angina pectoris, unspecified; I27.20 Pulmonary hypertension, unspecified; I11.0 Hypertensive heart disease with heart failure; I50.22 Chronic systolic (congestive) heart failure; E78.5 Hyperlipidemia, unspecified; Z86.711 Personal history of pulmonary embolism; Z95.810 Presence of automatic (implantable) cardiac defibrillator
CPT/HCPCS: 78452; 93017; 93306; A9502; J2785; Q9957

== ENCOUNTER → 2021-07-31 08:43 | Outpatient (CLI) | payer BC, SELFPAY ==
[2021-07-31 09:37] LABS: Basophils # 0.1 K/mm3 (0-0.2); Eosinophils # 0.7 K/mm3 (0.0-0.4); Eosinophils % 5.8 % (0.1-12.0); Hematocrit 39.1 % (37.0-47.0); Hemoglobin 13.2 g/dL (12.2-16.2); Lymphocytes # 2.1 K/mm3 (0.7-4.5); Lymphocytes % 18.3 % (10-50); Mean Corpuscular HGB Conc 33.8 g/dL (31.8-35.4); Mean Corpuscular Hemoglobin 26.3 pg (27.0-31.2); Mean Corpuscular Volume 77.8 fl (81-99); Mean Platelet Volume 8.5 fl (7.4-10.4); Monocytes # 0.5 K/mm3 (0.1-1.0); Monocytes % 4.5 % (1.7-9.3); Neutrophils # 7.9 K/mm3 (1.8-7.8); Neutrophils % 70.4 % (37.0-80.0); Platelet Count 331 K/mm3 (142-424); Red Blood Count 5.02 M/mm3 (4.20-5.40); White Blood Count 11.2 K/mm3 (4.8-10.8)
[2021-07-31 10:06] LABS: Chloride 100 mmol/L (98-107); Sodium 135 mmol/L (136-145)
[2021-07-31 10:07] LABS: Potassium 4.3 mmoL/L (3.5-5.1)
[2021-07-31 10:10] LABS: Anion Gap 14.3 mEq/L (5-15); Blood Urea Nitrogen 10 mg/dl (7-17); Calcium 9.7 mg/dl (8.4-10.2); Carbon Dioxide 25 mmol/L (22.0-30.0); Estimated Glomerular Filt Rate 110 ml/min (>60); GFR (African American) 133 ML/MIN (>60); Glucose 298 mg/dl (74-100)
== END ==
PROVIDERS: PCP Nurse Practitioner Family; Visit Provider Physician Assistant
DX: Z01.818 Encounter for other preprocedural examination (principal); Z20.822 Contact with and (suspected) exposure to COVID-19; R06.00 Dyspnea, unspecified; I42.9 Cardiomyopathy, unspecified; I20.9 Angina pectoris, unspecified; I27.20 Pulmonary hypertension, unspecified; I50.22 Chronic systolic (congestive) heart failure; E78.5 Hyperlipidemia, unspecified; R94.30 Abnormal result of cardiovascular function study, unspecified; Z86.711 Personal history of pulmonary embolism; Z95.810 Presence of automatic (implantable) cardiac defibrillator
CPT/HCPCS: 36415; 80048; 85025; C9803; U0003; U0005

== ENCOUNTER 2021-08-02 09:29 | Day surgery (SDC) | payer BC, SELFPAY ==
[2021-08-02] VITALS (11 sets, daily range): BP systolic 97–167; BP diastolic 47–108; PULSE 60–94; RESP 17–20; TEMP 36.6; O2SAT 92–96; BMI 47.1
--- NOTE | 2021-08-02 | IR_ITS ---
APPROVED REPORT Patient Location: Outpatient Customer Support Agent: MEGAN Rucker RT (R) PROCEDURES Left heart catheterization Left ventriculogram Selective coronary angiogram INDICATION High risk abnormal Myoview, Systolic congestive heart failure, Worsening angina pectoris, Informed consent was obtained prior to the procedure. COMPLICATIONS None Estimated Blood Loss: Less than 10 mls TECHNIQUE One percent lidocaine used to anesthetize the right anterior aspect of the wrist. The right radial artery was accessed via the Seldinger technique. A 6 Hebrew sheath was placed in the right radial artery. 2.5 mg of verapamil, 800 mcg of nitroglycerin, 1mg Lidocaine and 5000 U Heparin were given through the arterial sheath. The papa catheter was also used to perform left heart catheterization, left ventriculogram and selective coronary angiogram. At the end of the procedure the sheath was removed good hemostasis was achieved using Traclet band, patient was transferred to the postop holding area in stable condition. ANGIOGRAPHIC RESULTS The left main artery Normal The left anterior descending artery Normal The circumflex artery Small nondominant normal The right coronary artery Massively large dominant normal The SMALLS ventriculogram reveals Dilated ventricle ejection fraction 25% The left ventricular end-diastolic pressure Severely elevated at 40 mmHg IMPRESSION Normal coronary arteries Dilated left ventricle with global hypokinesis and reduced ejection fraction Severely elevated LVEDP which is the etiology for patient's symptoms PLAN 1. Continue standard therapy for systolic heart failure 2. Increase diuretics to decrease LVEDP which is etiology for patient's symptoms Electronically signed by : Rodrick Tay MD 08/02/2021 13:23:07
== END 2021-08-02 14:30 | disposition home or self-care (01) ==
LOC: CATHLAB 09:30
PROVIDERS: PCP Nurse Practitioner Family; Visit Provider Internal Medicine
DX: I25.118 Atherosclerotic heart disease of native coronary artery with other forms of angina pectoris (principal); I50.22 Chronic systolic (congestive) heart failure; I11.0 Hypertensive heart disease with heart failure; I27.20 Pulmonary hypertension, unspecified; Z86.711 Personal history of pulmonary embolism; Z95.810 Presence of automatic (implantable) cardiac defibrillator; I42.0 Dilated cardiomyopathy; I48.91 Unspecified atrial fibrillation; Z79.01 Long term (current) use of anticoagulants; E11.9 Type 2 diabetes mellitus without complications; Z79.84 Long term (current) use of oral hypoglycemic drugs; E03.9 Hypothyroidism, unspecified
CPT/HCPCS: 93458; 99152; C1725; C1769; J1644; Q9967

== ENCOUNTER → 2021-08-16 09:52 | Outpatient (CLI) | payer BC, SELFPAY ==
[2021-08-16 11:03] LABS: Chloride 98 mmol/L (98-107); Sodium 135 mmol/L (136-145)
[2021-08-16 11:06] LABS: Blood Urea Nitrogen 10 mg/dl (7-17); Calcium 9.7 mg/dl (8.4-10.2); Carbon Dioxide 28 mmol/L (22.0-30.0); Estimated Glomerular Filt Rate 110 ml/min (>60); GFR (African American) 133 ML/MIN (>60); Glucose 298 mg/dl (74-100); Magnesium 1.5 mg/dl (1.6-2.3)
== END ==
PROVIDERS: PCP Nurse Practitioner Family; Visit Provider Nurse Practitioner
DX: R06.00 Dyspnea, unspecified (principal); E78.5 Hyperlipidemia, unspecified; I20.9 Angina pectoris, unspecified; I27.20 Pulmonary hypertension, unspecified; I42.9 Cardiomyopathy, unspecified; I50.22 Chronic systolic (congestive) heart failure; R94.30 Abnormal result of cardiovascular function study, unspecified; Z86.711 Personal history of pulmonary embolism; Z95.810 Presence of automatic (implantable) cardiac defibrillator
CPT/HCPCS: 36415; 80048; 83735

== ENCOUNTER → 2021-10-31 08:32 | Outpatient (CLI) | payer BC, SELFPAY ==
--- NOTE | 2021-10-31 08:38 | XR_ITS ---
FINAL REPORT CLINICAL HISTORY: mass in left knee, lateral side FINDINGS: LEFT KNEE 4 views of the left knee obtained. There is no acute fracture or dislocation. The joint spaces are intact.. There is no soft tissue abnormality. IMPRESSION: No acute bony abnormality. No soft tissue mass. If indicated, an MRI could further evaluate for a possible soft tissue mass. Reviewed, Interpreted and Dictated by Phoenix Chris III, MD Transcribed by Jessica Wallace Authenticated and [facility]
== END ==
PROVIDERS: PCP Nurse Practitioner Family; Visit Provider Orthopaedic Surgery
DX: M25.562 Pain in left knee (principal); R22.42 Localized swelling, mass and lump, left lower limb
CPT/HCPCS: 73564

== ENCOUNTER → 2021-11-29 11:58 | Outpatient (CLI) | payer BC, SELFPAY ==
[2021-11-29 12:08] LABS: Microscopic, Urine URINE MICROSCOPIC (MICROSCOPIC)
[2021-11-29 12:36] LABS: Basophils # 0.1 K/mm3 (0-0.2); Basophils % 0.7 % (0.1-2.0); Eosinophils # 0.7 K/mm3 (0.0-0.4); Eosinophils % 5.3 % (0.1-12.0); Hematocrit 42.7 % (37.0-47.0); Hemoglobin 13.9 g/dL (12.2-16.2); Lymphocytes # 2.8 K/mm3 (0.7-4.5); Lymphocytes % 21.9 % (10-50); Mean Corpuscular HGB Conc 32.6 g/dL (31.8-35.4); Mean Corpuscular Hemoglobin 25.8 pg (27.0-31.2); Mean Corpuscular Volume 79.3 fl (81-99); Mean Platelet Volume 8.4 fl (7.4-10.4); Monocytes # 0.5 K/mm3 (0.1-1.0); Neutrophils # 8.7 K/mm3 (1.8-7.8); Neutrophils % 68.1 % (37.0-80.0); Platelet Count 337 K/mm3 (142-424); Red Blood Count 5.38 M/mm3 (4.20-5.40); Red Cell Distribution Width 13.9 % (11.5-17.5); White Blood Count 12.8 K/mm3 (4.8-10.8)
[2021-11-29 12:38] LABS: Appearance,Urine CLEAR (Clear); Bilirubin,Urine Negative (Negative); Blood, Urine Negative (Negative); Color,Urine YELLOW (Yellow); Glucose,Urine (UA) TRACE (Negative); Ketones,Urine Negative (Negative); Leukocyte Esterase,Urine Negative (Negative); Nitrate,Urine Negative (Negative); Protein,Urine Negative (Negative); Urobilinogen,Urine 0.2 EU/dl (0.2)
[2021-11-29 12:52] LABS: WBC,Urine Occasional #/hpf (0-3)
[2021-11-29 13:17] LABS: Alanine Aminotransferase 35 U/L (12-78); Albumin Level 4.1 g/dl (3.5-5.0); Albumin/Globulin Ratio 1.5 (1.1-1.8); Alkaline Phosphatase 135 U/L (38-126); Anion Gap 18.1 mEq/L (5-15); Aspartate Amino Transferase 27 U/L (14-36); Bilirubin,Total 0.3 mg/dl (0.2-1.3); Blood Urea Nitrogen 8 mg/dl (7-17); Calcium 9.1 mg/dl (8.4-10.2); Carbon Dioxide 25 mmol/L (22.0-30.0); Chloride 95 mmol/L (98-107); Estimated Glomerular Filt Rate 135 ml/min (>60); GFR (African American) 164 ML/MIN (>60); Globulin 2.7 g/dL (1.3-3.2); Glucose 282 mg/dl (74-100); Potassium 4.1 mmoL/L (3.5-5.1); Sodium 134 mmol/L (136-145); Total Protein,Serum 6.8 g/dl (6.3-8.2)
[2021-11-29 14:30] LABS: Urine Pregnancy, HCG Qual. Negative (Negative)
== END ==
PROVIDERS: PCP Nurse Practitioner Family; Visit Provider Orthopaedic Surgery
DX: Z01.818 Encounter for other preprocedural examination (principal)
CPT/HCPCS: 36415; 80053; 81001; 81025; 85025

== ENCOUNTER → 2021-12-01 11:20 | Outpatient (CLI) | payer BC, SELFPAY ==
--- NOTE | 2021-12-01 11:29 | XR_ITS ---
FINAL REPORT CLINICAL HISTORY: pre op for knee replacement, pace maker COMPARISON: June 14, 2017 FINDINGS: Two views of the chest were obtained. A left subclavian ICD is present. The heart size and pulmonary vascularity are within normal limits. The mediastinum is normal. No acute pulmonary abnormality is identified. There is no pneumothorax. The bony thorax is intact. IMPRESSION: No active cardiopulmonary disease. Reviewed, Interpreted and Dictated by Phoenix Chris III, MD Transcribed by Jessica Wallace Authenticated and [facility]
== END ==
PROVIDERS: PCP Nurse Practitioner Family; Visit Provider Orthopaedic Surgery
DX: Z01.810 Encounter for preprocedural cardiovascular examination (principal)
CPT/HCPCS: 71046

== ENCOUNTER 2021-12-07 06:58 | Day surgery (SDC) | payer BC, SELFPAY ==
[2021-12-04 10:17] VITALS: BMI 46.0
[2021-12-07] VITALS (10 sets, daily range): BP systolic 114–129; BP diastolic 15–88; PULSE 91–112; RESP 12–20; TEMP 36.2–38; O2SAT 93–99
--- NOTE | 2021-12-07 09:27 | P.PN_ITS ---
[facility] 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 Anxiety and depression Cardiomyopathy CHF (congestive heart failure) Chronic systolic heart failure Diabetes mellitus Diastolic dysfunction Edema Epicondylitis History of pulmonary embolus (PE) Hyperlipidemia Hypertensive disorder Hypertensive heart disease Iron deficiency anemia Nonischemic cardiomyopathy Pacemaker Post-tonsillectomy hemorrhage Pulmonary hypertension SOB (shortness of breath) Surgical History H/O removal of cyst H/O: hysterectomy History of appendectomy History of carpal tunnel release of both wrists History of cholecystectomy History of tonsillectomy Family History Other Family history of cancer Family history of diabetes mellitus Social History Smoking Status: Never smoker second hand exposure: No alcohol intake: never counseling provided: none substance use type: denies use current occupational status: unemployed Travel in the last 8 weeks: None household members: spouse housing: house 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 [facility] Anesthesia Checklist Patient Identification Patient Identification: Verbal (Name & ) Structural Data Admitted From: Home Planned Operative Procedure/s: exc ganglion cyst l knee Consent for Planned Operative Procedure(s) Verified: Yes NPO Status Verified Time NPO: 00:00 Additional verifications Anesthesia Reactions: No Hx Blood Transfusions: No Blood Transfusion Reaction: No Airway Assessment C-Spine Mobility Assessed: Yes TMJ Mobility Assessed: Yes Dentition: Good Dentition Neurological Assessment Level of Consciousness: Awake, Alert and Appropriate Anesthesia Plan Anesthesia Risk discussed: Yes Anesthesia Plan: Verified ASA Class: III Anesthesia Type: General
--- NOTE | 2021-12-07 09:55 | P.PNANES_ITS ---
[facility] Anesthesia Record Part I Anesthesia Record I Intake, IV Amount: 800 Estimated blood loss (mL): 0 Urine output (mL): 0 Blood Pressure: 129/88 SaO2: 93 Pulse Rate: 112 Respiratory Rate: 12 Temperature: 97.7 F Patient is:: Awake and Stable Stable to PACU at:: 09:55
--- NOTE | 2021-12-07 10:04 | EXP.OP.NOTE ---
Date of procedure: 12/07/21 Pre-op Diagnosis:: Soft tissue mass left knee lateral Post-op Diagnosis:: Same Procedure performed:: Excision soft tissue mass left knee Surgeon:: Wally Forbes DO HYDRODYNAMICS PROFESSOR:: Gold Stevenson Anesthesia: GETA Estimated blood loss (mL): 0 Operative findings:: Soft tissue mass mature adipose tissue consistent with lipoma Operative note:: Patient was identified preoperatively. Left knee marked yes my initials. Transferred operative suite and placed upon the operating bed. General anesthesia administered and airway secured. Left lower extremity prepped and draped in normal sterile fashion. Once prepped and draped final operative timeout performed to identify proper patient procedure and extremity. Everyone involved in the case agreed. There were no counter indications to beginning. She did receive preoperative antibiotics Marking pen was used to le plan incision over the soft tissue mass lateral knee. Esmarch was used exsanguinate the extremity. Skin knife was used to incise through skin. Careful dissection was taken down. With scissors dissection was taken around soft tissue mass. This appeared to be mature adipose tissue consistent with lipoma. It was well-circumscribed and excised. Placed on back table for pathology. Wound was irrigated. Blunt digital palpation around incision performed to confirm removal of entire mass. Irrigation repeated. Deep layers closed with Vicryl stitch skin closed with nylon stitch sterile dressing placed from toe to thigh. Patient recommend esthesia taken recovery stable condition. Tourniquet time (min): 22 Condition: stable Disposition: PACU Complications:: None apparent
[2021-12-07 10:05] LABS: POC Glucose,Bedside 216 (70-110)
--- NOTE | 2021-12-07 10:15 | PC.NURSE ---
Dr Forbes at bedside
--- NOTE | 2021-12-08 08:29 | P.PNANES_ITS ---
[facility] Anesthesia Record Part II Anesthesia Record Part II Discharge Time: 10:25 Destination: Surgical Day Care (OP Surgery) PACU nurse assessment reviewed?: Yes Patient Condition:: Good Anesthesia Complications:: None Swallowing reflex intact?: Yes Cyanosis?: No Blood Pressure: 116/73 Pulse Rate: 93 Temperature: 97.2 F Mental Status: Alert & Oriented Pain level:: 0 Nausea and/or vomitting:: None Intake, IV Amount: 0
[2021-12-08 08:30] VITALS: BP 116/73; PULSE 93; TEMP 36.2
[2021-12-08 13:22] LABS: POC Glucose,Bedside 250 (70-110)
== END 2021-12-07 10:58 | disposition home or self-care (01) ==
PROVIDERS: PCP Nurse Practitioner Family; Visit Provider Orthopaedic Surgery
PROC: (CPT 27327; principal; 2021-12-07 08:45)
DX: D17.79 Benign lipomatous neoplasm of other sites (principal); Z79.84 Long term (current) use of oral hypoglycemic drugs; E11.9 Type 2 diabetes mellitus without complications; Z79.899 Other long term (current) drug therapy
CPT/HCPCS: 27327; 82962; 88304

== ENCOUNTER → 2022-03-01 09:30 | Outpatient (CLI) | payer BC, SELFPAY ==
[2022-03-01 09:42] LABS: MANUAL DIFFERENTIAL MANUAL DIFFERENTIAL (MANUAL DIFF)
[2022-03-01 09:54] LABS: Basophils # 0.1 K/mm3 (0-0.2); Basophils % 0.8 % (0.1-2.0); Eosinophils # 0.6 K/mm3 (0.0-0.4); Eosinophils % 6.1 % (0.1-12.0); Hematocrit 43.7 % (37.0-47.0); Hemoglobin 14.1 g/dL (12.2-16.2); Lymphocytes # 1.9 K/mm3 (0.7-4.5); Lymphocytes % 19.9 % (10-50); Mean Corpuscular HGB Conc 32.2 g/dL (31.8-35.4); Mean Corpuscular Hemoglobin 25.4 pg (27.0-31.2); Mean Corpuscular Volume 79.1 fl (81-99); Mean Platelet Volume 8.3 fl (7.4-10.4); Monocytes # 0.4 K/mm3 (0.1-1.0); Monocytes % 4.3 % (1.7-9.3); Neutrophils # 6.6 K/mm3 (1.8-7.8); Neutrophils % 68.7 % (37.0-80.0); Platelet Count 256 K/mm3 (142-424); Red Blood Count 5.53 M/mm3 (4.20-5.40); Red Cell Distribution Width 13.6 % (11.5-17.5); White Blood Count 9.6 K/mm3 (4.8-10.8)
[2022-03-01 10:12] LABS: Chloride 98 mmol/L (98-107); Potassium 4.6 mmoL/L (3.5-5.1); Sodium 135 mmol/L (136-145)
[2022-03-01 10:14] LABS: Blood Urea Nitrogen 10 mg/dl (7-17); Estimated Glomerular Filt Rate 135 ml/min (>60); GFR (African American) 164 ML/MIN (>60)
[2022-03-01 10:15] LABS: Anion Gap 14.6 mEq/L (5-15); Calcium 9.6 mg/dl (8.4-10.2); Carbon Dioxide 27 mmol/L (22.0-30.0); Glucose 332 mg/dl (74-100); Magnesium 1.6 mg/dl (1.6-2.3)
[2022-03-01 12:13] LABS: Eosinophils % 3 % (0-3); Hypochromasia 1+; Lymphocytes % 26 % (10-50); Monocytes % 4 % (2-9); Neutrophils % 67 % (42-76); Platelet Estimate Normal; Total Cells Counted 100
[2022-03-01 12:14] LABS: Microcytosis 1+
== END ==
PROVIDERS: PCP Nurse Practitioner Family; Visit Provider Internal Medicine
DX: R06.02 Shortness of breath (principal); R42 Dizziness and giddiness; I11.0 Hypertensive heart disease with heart failure; I50.22 Chronic systolic (congestive) heart failure; I27.20 Pulmonary hypertension, unspecified; I42.0 Dilated cardiomyopathy; I42.8 Other cardiomyopathies; E66.01 Morbid (severe) obesity due to excess calories; E11.69 Type 2 diabetes mellitus with other specified complication; Z68.41 Body mass index [BMI] 40.0-44.9, adult; Z95.810 Presence of automatic (implantable) cardiac defibrillator; Z79.84 Long term (current) use of oral hypoglycemic drugs
CPT/HCPCS: 36415; 80048; 83735; 85007; 85014; 85018; 85048; 85049

== ENCOUNTER → 2022-03-02 08:16 | Outpatient (CLI) | payer BC, SELFPAY | PROVIDERS: PCP Nurse Practitioner Family; Visit Provider Internal Medicine | DX: M19.90 Unspecified osteoarthritis, unspecified site (principal) ==

== ENCOUNTER → 2022-03-13 09:02 | Outpatient (CLI) | payer BC, SELFPAY ==
--- NOTE | 2022-03-13 09:02 | NM_ITS ---
FINAL REPORT CLINICAL HISTORY: rule out PE, SOB 10:45am 35.6 mci tc dtpa 11:10am 7.80 mci tc maa FINDINGS: NUCLEAR MEDICINE VENTILATION AND PERFUSION IMAGING TECHNIQUE: V/Q scan is performed utilizing 35.6 technetium 99 M DTPA aerosol and IV administration of 7.8 technetium 99 M MAA. Images were obtained in AP, PA, lateral, and oblique projections. FINDINGS There is no evidence of segmental or subsegmental mismatch perfusion defects. IMPRESSION: Low probability for pulmonary embolus. Reviewed, Interpreted and Dictated by Anabella Poon MD Transcribed by Babatunde Joyce Authenticated and [facility]
== END ==
LOC: RAD 09:02
PROVIDERS: PCP Nurse Practitioner Family; Visit Provider Physician Assistant
DX: R06.00 Dyspnea, unspecified (principal); R42 Dizziness and giddiness; I50.22 Chronic systolic (congestive) heart failure; I51.9 Heart disease, unspecified; E66.9 Obesity, unspecified; Z68.42 Body mass index [BMI] 45.0-49.9, adult
CPT/HCPCS: 78582; A9540; A9567

== ENCOUNTER → 2022-06-26 08:51 | Outpatient (CLI) | payer BC, SELFPAY ==
[2022-06-26 09:25] LABS: Basophils # 0.1 K/mm3 (0-0.2); Basophils % 0.6 % (0.1-2.0); Eosinophils # 0.5 K/mm3 (0.0-0.4); Eosinophils % 5.4 % (0.1-12.0); Hematocrit 40.9 % (37.0-47.0); Hemoglobin 13.6 g/dL (12.2-16.2); Lymphocytes # 2.1 K/mm3 (0.7-4.5); Lymphocytes % 22.1 % (10-50); Mean Corpuscular HGB Conc 33.3 g/dL (31.8-35.4); Mean Corpuscular Hemoglobin 25.6 pg (27.0-31.2); Mean Corpuscular Volume 76.8 fl (81-99); Mean Platelet Volume 8.3 fl (7.4-10.4); Monocytes # 0.4 K/mm3 (0.1-1.0); Monocytes % 4.1 % (1.7-9.3); Neutrophils # 6.4 K/mm3 (1.8-7.8); Neutrophils % 67.8 % (37.0-80.0); Platelet Count 308 K/mm3 (142-424); Red Blood Count 5.32 M/mm3 (4.20-5.40); Red Cell Distribution Width 13.9 % (11.5-17.5); White Blood Count 9.5 K/mm3 (4.8-10.8)
[2022-06-26 09:45] LABS: Chloride 90 mmol/L (98-107); Potassium 4.6 mmoL/L (3.5-5.1); Sodium 133 mmol/L (136-145)
[2022-06-26 09:48] LABS: Alanine Aminotransferase 38 U/L (12-78); Albumin Level 4.2 g/dl (3.5-5.0); Alkaline Phosphatase 110 U/L (38-126); Anion Gap 17.6 mEq/L (5-15); Aspartate Amino Transferase 31 U/L (14-36); Bilirubin,Indirect 0.7 mg/dL (0.0-0.9); Bilirubin,Total 0.7 mg/dl (0.2-1.3); Bilirubin,Unconjugated 0.7 mg/dL (0.0-1.1); Blood Urea Nitrogen 11 mg/dl (7-17); Calcium 9.6 mg/dl (8.4-10.2); Carbon Dioxide 30 mmol/L (22.0-30.0); Cholesterol 158 mg/dl (140-200); Estimated Glomerular Filt Rate 110 ml/min (>60); GFR (African American) 133 ML/MIN (>60); Glucose 367 mg/dl (74-100); Total Protein,Serum 6.9 g/dl (6.3-8.2); Triglycerides 343 mg/dl (30-150); VLDL Cholesterol 69 mg/dL (0-40)
[2022-06-26 09:49] LABS: Chol/HDL Ratio 2.7 (1-3.5); HDL Cholesterol 58 mg/dl (40-60); Magnesium 1.4 mg/dl (1.6-2.3)
[2022-06-26 10:00] LABS: Direct LDL Cholesterol 82.66 mg/dL (100-129)
[2022-06-26 10:05] LABS: Free T4 (Free Thyroxine) 1.68 ng/dl (0.78-2.19)
[2022-06-26 10:18] LABS: Thyroid Stimulating Hormone 0.04 uIU/mL (0.465-4.68)
== END ==
PROVIDERS: PCP Nurse Practitioner Family; Visit Provider Nurse Practitioner
DX: R06.02 Shortness of breath (principal); R42 Dizziness and giddiness; I11.0 Hypertensive heart disease with heart failure; I27.20 Pulmonary hypertension, unspecified; I42.0 Dilated cardiomyopathy; I42.8 Other cardiomyopathies; I50.22 Chronic systolic (congestive) heart failure; E11.69 Type 2 diabetes mellitus with other specified complication; E66.01 Morbid (severe) obesity due to excess calories; Z68.41 Body mass index [BMI] 40.0-44.9, adult; Z95.810 Presence of automatic (implantable) cardiac defibrillator; Z79.84 Long term (current) use of oral hypoglycemic drugs
CPT/HCPCS: 36415; 80048; 80061; 80076; 83735; 84439; 84443; 85025

== ENCOUNTER → 2022-11-02 14:00 | Outpatient (CLI) | payer BC, SELFPAY ==
[2022-11-02 13:33] LABS: Chloride 97 mmol/L (98-107); Potassium 4.9 mmoL/L (3.5-5.1); Sodium 137 mmol/L (136-145)
[2022-11-02 13:35] LABS: Alanine Aminotransferase 52 U/L (12-78); Aspartate Amino Transferase 45 U/L (14-36); Blood Urea Nitrogen 10 mg/dl (7-17); Estimated Glomerular Filt Rate 109 ml/min (>60); GFR (African American) 132 ML/MIN (>60)
[2022-11-02 13:36] LABS: Albumin Level 4.3 g/dl (3.5-5.0); Albumin/Globulin Ratio 1.3 (1.1-1.8); Alkaline Phosphatase 150 U/L (38-126); Anion Gap 19.9 mEq/L (5-15); Bilirubin,Total 0.8 mg/dl (0.2-1.3); Calcium 10.3 mg/dl (8.4-10.2); Carbon Dioxide 25 mmol/L (22.0-30.0); Chol/HDL Ratio 4.1 (1-3.5); Cholesterol 211 mg/dl (140-200); Globulin 3.4 g/dL (1.3-3.2); Glucose 336 mg/dl (74-100); HDL Cholesterol 51 mg/dl (40-60); Magnesium 1.6 mg/dl (1.6-2.3); Total Protein,Serum 7.7 g/dl (6.3-8.2); Triglycerides 269 mg/dl (30-150); VLDL Cholesterol 54 mg/dL (0-40)
[2022-11-02 13:43] LABS: C-Reactive Protein 14.4 mg/L (0-4)
[2022-11-02 14:23] LABS: Thyroid Stimulating Hormone 0.06 uIU/mL (0.465-4.68)
== END ==
PROVIDERS: PCP Nurse Practitioner Family; Visit Provider Nurse Practitioner Family
DX: R79.82 Elevated C-reactive protein (CRP) (principal); E78.5 Hyperlipidemia, unspecified; E87.1 Hypo-osmolality and hyponatremia; I11.9 Hypertensive heart disease without heart failure; M79.10 Myalgia, unspecified site
CPT/HCPCS: 80053; 80061; 83735; 84443; 86140

== ENCOUNTER → 2022-11-30 16:46 | Outpatient (CLI) | payer BC, SELFPAY ==
[2022-11-30 17:46] LABS: Alanine Aminotransferase 44 U/L (12-78); Albumin Level 4.6 g/dl (3.5-5.0); Albumin/Globulin Ratio 1.2 (1.1-1.8); Alkaline Phosphatase 130 U/L (38-126); Anion Gap 19.1 mEq/L (5-15); Aspartate Amino Transferase 34 U/L (14-36); Bilirubin,Total 0.7 mg/dl (0.2-1.3); Blood Urea Nitrogen 13 mg/dl (7-17); Calcium 9.9 mg/dl (8.4-10.2); Carbon Dioxide 28 mmol/L (22.0-30.0); Chloride 95 mmol/L (98-107); Estimated Glomerular Filt Rate 135 ml/min (>60); GFR (African American) 163 ML/MIN (>60); Globulin 3.7 g/dL (1.3-3.2); Glucose 304 mg/dl (74-100); Potassium 5.1 mmoL/L (3.5-5.1); Sodium 137 mmol/L (136-145); Total Protein,Serum 8.3 g/dl (6.3-8.2)
[2022-11-30 18:16] LABS: Thyroid Stimulating Hormone 0.05 uIU/mL (0.465-4.68)
[2022-11-30 18:35] LABS: Vitamin B12 650 pg/mL (239-931)
[2022-11-30 19:52] LABS: Ferritin 23.4 ng/ml (6.24-137)
[2022-12-02 10:16] LABS: C-Reactive Protein 17.2 mg/L (0-4)
== END ==
PROVIDERS: PCP Nurse Practitioner Family; Visit Provider Nurse Practitioner Family
DX: G62.9 Polyneuropathy, unspecified (principal); R79.89 Other specified abnormal findings of blood chemistry; R79.82 Elevated C-reactive protein (CRP); E11.9 Type 2 diabetes mellitus without complications; E87.1 Hypo-osmolality and hyponatremia; R74.8 Abnormal levels of other serum enzymes; Z79.84 Long term (current) use of oral hypoglycemic drugs
CPT/HCPCS: 80053; 82607; 82728; 84443; 86140

== ENCOUNTER → 2022-12-27 09:09 | Outpatient (CLI) | payer BC, SELFPAY ==
--- NOTE | 2022-12-27 09:12 | XR_ITS ---
FINAL REPORT CLINICAL HISTORY: eval AICD placement COMPARISON: None FINDINGS: Two views of the chest were obtained. There is a left subclavian AICD in place. The heart size and pulmonary vascularity are within normal limits. The mediastinum is normal. No acute pulmonary abnormality is identified. There is no pneumothorax. The bony thorax is intact. IMPRESSION: No active cardiopulmonary disease. Reviewed, Interpreted and Dictated by Phoenix Chris III, MD Transcribed by Cindi Redmond Authenticated and [facility]
== END ==
PROVIDERS: PCP Nurse Practitioner Family; Visit Provider Nurse Practitioner Family
DX: R07.89 Other chest pain (principal); Z95.810 Presence of automatic (implantable) cardiac defibrillator
CPT/HCPCS: 71046

== ENCOUNTER → 2022-12-28 12:08 | Outpatient (CLI) | payer BC, SELFPAY ==
[2022-12-28 11:28] LABS: Basophils # 0.1 K/mm3 (0-0.2); Basophils % 0.4 % (0.1-2.0); Eosinophils # 0.5 K/mm3 (0.0-0.4); Eosinophils % 4.1 % (0.1-12.0); Hematocrit 42.6 % (37.0-47.0); Hemoglobin 14.5 g/dL (12.2-16.2); Lymphocytes # 2.1 K/mm3 (0.7-4.5); Mean Corpuscular HGB Conc 34.2 g/dL (31.8-35.4); Mean Corpuscular Hemoglobin 26.1 pg (27.0-31.2); Mean Corpuscular Volume 76.4 fl (81-99); Mean Platelet Volume 8.4 fl (7.4-10.4); Monocytes # 0.4 K/mm3 (0.1-1.0); Monocytes % 3.6 % (1.7-9.3); Neutrophils % 72.8 % (37.0-80.0); Platelet Count 280 K/mm3 (142-424); Red Blood Count 5.58 M/mm3 (4.20-5.40); Red Cell Distribution Width 13.5 % (11.5-17.5)
[2022-12-28 11:57] LABS: C-Reactive Protein 12.2 mg/L (0-4)
[2022-12-28 11:59] LABS: Hemoglobin A1C 12.6 % (4.0-6.0)
[2022-12-28 12:16] LABS: Thyroid Stimulating Hormone 0.05 uIU/mL (0.465-4.68)
[2022-12-28 12:20] LABS: Ferritin 20.1 ng/ml (6.24-137)
[2022-12-29 08:22] LABS: Triiodothyronine (T3) Free 3.3 pg/mL (2.0-4.4)
== END ==
PROVIDERS: PCP Nurse Practitioner Family; Visit Provider Nurse Practitioner Family
DX: R79.82 Elevated C-reactive protein (CRP) (principal); D64.9 Anemia, unspecified; R79.89 Other specified abnormal findings of blood chemistry; E11.9 Type 2 diabetes mellitus without complications; Z79.84 Long term (current) use of oral hypoglycemic drugs
CPT/HCPCS: 36415; 82728; 83036; 84443; 84481; 85025; 86140

== ENCOUNTER 2023-01-05 09:00 | Emergency (ER) | payer BC, SELFPAY ==
[2023-01-05 09:15] VITALS: BP 124/84; PULSE 84; RESP 19; TEMP 36.7; O2SAT 96; BMI 43.4
--- NOTE | 2023-01-05 09:26 | EXP.UTC ---
Discharge Plan Disposition Patient Disposition: Home, Self-Care Condition: Good Prescriptions Prescriptions: New guaifenesin [Mucinex] 600 mg tablet extended release 12hr 600 mg PO BID PRN (Reason: cough) Qty: 20 0RF azithromycin [Zithromax Z-Barak] 250 mg tablet See Rx Instructions .ROUTE .COMPLEX 5 Days Qty: 6 0RF Rx Instructions: For 250 mg dose pack: take 500 mg today (day 1), then 250 mg for 4 days (days 2-5) fluticasone propionate [Flonase Allergy Relief] 50 mcg/actuation spray,suspension 1 - 2 spray intranasal DAILY Qty: 16 0RF Rx Instructions: administer into each nostril daily No Action biotin 10,000 mcg capsule 10,000 mcg PO DAILY tramadol 50 mg tablet 50 mg PO Q6H PRN (Reason: PAIN) hydroxychloroquine [Plaquenil] 200 mg tablet 200 mg PO BID furosemide 40 mg tablet 40 mg PO DAILY Qty: 30 5RF buspirone 10 mg tablet 10 mg PO DAILY carvedilol 25 mg tablet 37.5 mg PO BID 90 Days Qty: 270 2RF Rx Instructions: must administer with a meal/food hydroxyzine HCl 25 mg tablet 25 mg PO Q8H PRN omeprazole 20 mg capsule,delayed release(DR/EC) 20 mg PO BID ondansetron HCl 4 mg tablet 4 mg PO Q6H PRN rosuvastatin [Crestor] 40 mg tablet 20 mg PO DAILY naproxen 375 mg tablet 375 mg PO BID PRN baclofen 10 mg tablet 10 mg PO Q8H PRN metformin 750 mg tablet extended release 24 hr 750 mg PO DAILY Xarelto 20 mg tablet 20 mg PO DAILY Rx Instructions: must administer with evening meal magnesium chloride 64 mg magnesium tablet 400 mg PO DAILY triamcinolone acetonide 0.1 % cream topical DAILY PRN (Reason: psoriasis) coenzyme Q10 [Co Q-10] 200 mg capsule 200 mg PO DAILY Entresto 24-26 mg tablet 1 tab PO BID Qty: 60 5RF cefdinir 300 mg capsule 300 mg PO BID 10 Days Qty: 20 0RF gabapentin 600 mg tablet 600 mg PO BID 30 Days Qty: 60 2RF spironolactone 25 mg tablet 25 mg PO DAILY Qty: 90 3RF Rybelsus 3 mg tablet 3 mg PO DAILY 30 Days Qty: 30 0RF cholecalciferol (vitamin D3) 1,000 UNIT capsule 1,000 unit PO DAILY Referrals Follow up/Referrals: Alena Reed APRN [Primary Care Provider] - See instructions Activity Restrictions/Add. Instructions Additional Instructions/Restrictions: Finish taking Cefdnir and start Zpack Make sure to drink plenty of fluids Salt water gargles may help with sore throat Warm drinks like tea with honey may help with sinus congestion Return if needed Straight to ER if any life threatening symptoms Clinical Impressions Clinical Impression: Sinusitis Qualifiers: Sinusitis location: unspecified location Chronicity: unspecified Qualified Code(s): J32.9 - Chronic sinusitis, unspecified Instructions Patient Instructions: DI for Sinusitis, Sinusitis Discharge ED Provider: Renetta Rock [facility] General Stated complaint: sore throat, congestion, sinus pressure Mode of Arrival: Ambulatory Source of Information: Patient Limitations: No Limitations Time Seen by Provider: 01/05/23 09:27 Description of Symptoms (Recalled from Triage Doc. by RN): PATIENT C/O SINUS CONGESTION AND SORE THROAT. SHE STATES SHE IS CURRENTLY ON ANTIBIOTICS BUT IS NOT BETTER HEENT Symptoms (Recalled from RN notes): Yes Resp Symptoms (Recalled from RN notes): No Skin Symptoms (Recalled from RN notes): No MS Symptoms (Recalled from RN notes): No Functional Status (Recalled from RN notes): WNL History of Present Illness Provider Complaint: Patient states that she seen her PCP over a week ago and has been on antibiotics but they havent helped much States that she is still having sinus pain and pressure, scratchy throat and drainage in the back of her throat that makes her cough States that today when she was not feeling any better so she came in to get checked Related Data Home Medications Medication Instructions Recorded Confirmed bi
[2023-01-05 09:47] VITALS: BP 124/84; PULSE 84; RESP 19; TEMP 36.7; O2SAT 96
== END 2023-01-05 09:52 | disposition home or self-care (01) ==
PROVIDERS: Emergency Provider Nurse Practitioner; PCP Nurse Practitioner Family
DX: J01.90 Acute sinusitis, unspecified (principal); R07.0 Pain in throat; I11.0 Hypertensive heart disease with heart failure; I50.9 Heart failure, unspecified; E78.5 Hyperlipidemia, unspecified; I27.20 Pulmonary hypertension, unspecified; E11.9 Type 2 diabetes mellitus without complications; Z79.84 Long term (current) use of oral hypoglycemic drugs; R09.81 Nasal congestion
CPT/HCPCS: 99204; 99212; G0463

== ENCOUNTER → 2023-01-30 11:58 | Outpatient (CLI) | payer BC, SELFPAY ==
[2023-01-30 12:12] LABS: Alanine Aminotransferase 64 U/L (12-78); Albumin Level 4.3 g/dl (3.5-5.0); Albumin/Globulin Ratio 1.4 (1.1-1.8); Alkaline Phosphatase 116 U/L (38-126); Anion Gap 16.5 mEq/L (5-15); Aspartate Amino Transferase 59 U/L (14-36); Bilirubin,Total 0.8 mg/dl (0.2-1.3); Blood Urea Nitrogen 7 mg/dl (7-17); Calcium 9.2 mg/dl (8.4-10.2); Carbon Dioxide 26 mmol/L (22.0-30.0); Chloride 94 mmol/L (98-107); Chol/HDL Ratio 3.9 (1-3.5); Cholesterol 213 mg/dl (140-200); Estimated Glomerular Filt Rate 135 ml/min (>60); GFR (African American) 163 ML/MIN (>60); Glucose 367 mg/dl (74-100); HDL Cholesterol 54 mg/dl (40-60); Potassium 4.5 mmoL/L (3.5-5.1); Sodium 132 mmol/L (136-145); Total Protein,Serum 7.3 g/dl (6.3-8.2); Triglycerides 384 mg/dl (30-150); VLDL Cholesterol 77 mg/dL (0-40)
[2023-01-30 12:23] LABS: C-Reactive Protein 9.7 mg/L (0-4); Direct LDL Cholesterol 116.21 mg/dL (100-129)
[2023-01-30 12:42] LABS: Thyroid Stimulating Hormone 0.13 uIU/mL (0.465-4.68)
== END ==
PROVIDERS: PCP Internal Medicine; Visit Provider Nurse Practitioner Family
DX: E78.5 Hyperlipidemia, unspecified (principal); R79.82 Elevated C-reactive protein (CRP); R79.89 Other specified abnormal findings of blood chemistry; E11.9 Type 2 diabetes mellitus without complications; Z79.4 Long term (current) use of insulin; Z79.84 Long term (current) use of oral hypoglycemic drugs
CPT/HCPCS: 36415; 80053; 80061; 84443; 86140

== ENCOUNTER 2023-03-01 16:51 | Outpatient (CLI) | payer BC, SELFPAY ==
[2023-03-01 15:36] LABS: Hemoglobin A1C 12.1 % (4.0-6.0)
[2023-03-01 15:42] LABS: Cholesterol 154 mg/dl (140-200); HDL Cholesterol 51 mg/dl (40-60); Triglycerides 249 mg/dl (30-150); VLDL Cholesterol 50 mg/dL (0-40)
[2023-03-01 15:52] LABS: C-Reactive Protein 9.4 mg/L (0-4); Direct LDL Cholesterol 75.85 mg/dL (100-129)
== END 2023-03-01 23:59 ==
LOC: LAB.DROPOF 16:52
PROVIDERS: PCP Internal Medicine; Visit Provider Nurse Practitioner Family
DX: R79.82 Elevated C-reactive protein (CRP) (principal); R79.89 Other specified abnormal findings of blood chemistry; E78.2 Mixed hyperlipidemia; E11.9 Type 2 diabetes mellitus without complications; Z79.4 Long term (current) use of insulin; Z79.84 Long term (current) use of oral hypoglycemic drugs
CPT/HCPCS: 80061; 83036; 84443; 86140

== ENCOUNTER 2023-03-21 08:03 | Outpatient (CLI) | payer BC, SELFPAY ==
--- NOTE | 2023-03-21 08:10 | XR_ITS ---
FINAL REPORT CLINICAL HISTORY: thumb cyst x few yrs pain when touched FINDINGS: Left hand Three views were obtained. There is no acute fracture or dislocation. The joint spaces appear normal. No soft tissue abnormality is identified. IMPRESSION: No acute process. Reviewed, Interpreted and Dictated by Rubens Rivera MD Transcribed by Doreen Uribe Authenticated and [facility]
== END 2023-03-21 23:59 ==
LOC: RAD 08:04
PROVIDERS: PCP Nurse Practitioner Family; Visit Provider Orthopaedic Surgery
DX: M67.442 Ganglion, left hand (principal)
CPT/HCPCS: 73130

== ENCOUNTER 2023-03-22 10:08 | Outpatient (CLI) | payer BC, SELFPAY ==
--- NOTE | 2023-03-22 10:12 | XR_ITS ---
FINAL REPORT CLINICAL HISTORY: lower back pain COMPARISON: None FINDINGS: AP and lateral views of the lumbar spine were obtained. There is no prior exam for comparison. There is no acute fracture or malalignment. Vertebral body height is preserved. Disc space height is preserved. No acute paraspinal abnormality. IMPRESSION: No acute osseous abnormality of the lumbar spine. Reviewed, Interpreted and Dictated by Rubens Rivera MD Transcribed by Cindi Redmond Authenticated and [facility]
== END 2023-03-22 23:59 ==
LOC: RAD 10:08
PROVIDERS: PCP Nurse Practitioner Family; Visit Provider Nurse Practitioner Family
DX: M54.50 Low back pain, unspecified (principal)
CPT/HCPCS: 72100

== ENCOUNTER 2023-03-29 10:35 | Outpatient (CLI) | payer BC, SELFPAY ==
--- NOTE | 2023-03-29 10:46 | ECG_ITS ---
APPROVED REPORT Exam: Resting ECG HR:88 bpm ECG Measurements Heart Rate 88 AXES AZ 135 P 41 QRSd 152 QRS 139 QT 412 T -7 QTc 458 Conclusion ELECTRONIC VENTRICULAR PACEMAKER ABNORMAL RHYTHM ECG UNCONFIRMED REPORT Electronically signed by : Eric Richey MD 03/29/2023 17:01:22
--- NOTE | 2023-03-29 10:49 | XR_ITS ---
FINAL REPORT CLINICAL HISTORY: Pre Op cough/congestion s.o.a. CHF COMPARISON: None FINDINGS: There is no evidence of effusion or other pleural disease. The mediastinum has a normal appearance. A left subclavian pacemaker is in place. The cardiac silhouette is unremarkable. IMPRESSION: No active disease. Reviewed, Interpreted and Dictated by Kriss Davis MD Transcribed by Cindi Redmond Authenticated and [facility]
[2023-03-29 14:27] LABS: Basophils # 0.1 K/mm3 (0-0.2); Basophils % 0.7 % (0.1-2.0); Eosinophils # 0.5 K/mm3 (0.0-0.4); Hematocrit 39.4 % (37.0-47.0); Hemoglobin 13.3 g/dL (12.2-16.2); Lymphocytes % 18.8 % (10-50); Mean Corpuscular HGB Conc 33.7 g/dL (31.8-35.4); Mean Corpuscular Hemoglobin 26.3 pg (27.0-31.2); Mean Corpuscular Volume 78.1 fl (81-99); Monocytes # 0.4 K/mm3 (0.1-1.0); Neutrophils # 7.8 K/mm3 (1.8-7.8); Neutrophils % 71.7 % (37.0-80.0); Platelet Count 284 K/mm3 (142-424); Red Blood Count 5.05 M/mm3 (4.20-5.40); White Blood Count 10.9 K/mm3 (4.8-10.8)
[2023-03-29 14:59] LABS: Alanine Aminotransferase 37 U/L (12-78); Albumin Level 4.2 g/dl (3.5-5.0); Albumin/Globulin Ratio 1.6 (1.1-1.8); Alkaline Phosphatase 104 U/L (38-126); Anion Gap 16.6 mEq/L (5-15); Aspartate Amino Transferase 27 U/L (14-36); Bilirubin,Total 0.5 mg/dl (0.2-1.3); Blood Urea Nitrogen 12 mg/dl (7-17); Calcium 9.5 mg/dl (8.4-10.2); Carbon Dioxide 28 mmol/L (22.0-30.0); Chloride 97 mmol/L (98-107); Estimated Glomerular Filt Rate 91 ml/min (>60); GFR (African American) 111 ML/MIN (>60); Globulin 2.6 g/dL (1.3-3.2); Glucose 289 mg/dl (74-100); Potassium 4.6 mmoL/L (3.5-5.1); Sodium 137 mmol/L (136-145); Total Protein,Serum 6.8 g/dl (6.3-8.2)
== END 2023-03-29 23:59 ==
LOC: RAD 10:37
PROVIDERS: PCP Nurse Practitioner Family; Visit Provider Orthopaedic Surgery
DX: Z01.818 Encounter for other preprocedural examination (principal); I42.8 Other cardiomyopathies; R79.89 Other specified abnormal findings of blood chemistry; E11.9 Type 2 diabetes mellitus without complications; Z79.4 Long term (current) use of insulin
CPT/HCPCS: 71046; 80053; 83036; 84443; 85025; 93005

== ENCOUNTER 2023-04-03 06:47 | Day surgery (SDC) | payer BC, SELFPAY ==
[2023-04-02 08:40] VITALS: BMI 43.4
[2023-04-03] VITALS (9 sets, daily range): BP systolic 119–166; BP diastolic 63–99; PULSE 92–96; RESP 17–18; TEMP 36.2–36.3; O2SAT 90–98
[2023-04-03] MEDS: LACTATED RINGERS 1000ML 1,000 ML 25 ML IV (07:06)
--- NOTE | 2023-04-03 08:13 | EXP.ANES.CKL ---
[facility] Disclaimer: The information contained in this section may have been updated after the patient was seen, as this information can be updated by other users. 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 Anxiety and depression Cardiomyopathy CHF (congestive heart failure) Chronic systolic heart failure Diabetes mellitus Diastolic dysfunction Dyspnea Edema Epicondylitis History of pulmonary embolus (PE) Hyperlipidemia Hypertensive disorder Hypertensive heart disease Iron deficiency anemia Nonischemic cardiomyopathy Pacemaker Palpitations Post-tonsillectomy hemorrhage Pulmonary hypertension SOB (shortness of breath) Tenderness of chest wall Surgical History H/O removal of cyst H/O: hysterectomy History of appendectomy History of carpal tunnel release of both wrists History of cholecystectomy History of tonsillectomy Family History Other Family history of cancer Family history of diabetes mellitus Social History Smoking Status: Never smoker second hand exposure: No alcohol intake: never counseling provided: none substance use type: denies use current occupational status: unemployed Travel in the last 8 weeks: None household members: spouse housing: house 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 [facility] Anesthesia Checklist Patient Identification Patient Identification: Arm Band and Verbal (Name & ) Structural Data Admitted From: Home Planned Operative Procedure/s: Excision soft tissue mass L thumb Consent for Planned Operative Procedure(s) Verified: Yes NPO Status Verified Time NPO: 00:00 Chart Verification Results Verified: HCG Additional verifications Anesthesia Reactions: No Hx Blood Transfusions: No Blood Transfusion Reaction: No Airway Assessment Mallampati Score:: Class I C-Spine Mobility Assessed: Yes TMJ Mobility Assessed: Yes Dentition: Good Dentition Neurological Assessment Level of Consciousness: Awake Hx Seizures: No Numbness or tingling in extremities: No Anesthesia Plan Anesthesia Risk discussed: Yes Anesthesia Plan: Verified ASA Class: III Anesthesia Type: General
[2023-04-03] MEDS: CEFAZOLIN SODIUM 2 GM in 0.9 % SODIUM CHLORIDE 100 ML IV (09:42)
[2023-04-03] MEDS: LIDOCAINE 1% W/EPI 1:100,000 20ML VIAL 20 ML (09:43)
[2023-04-03 09:55] LABS: POC Glucose,Bedside 205 (70-110)
--- NOTE | 2023-04-03 10:03 | EXP.OP.NOTE ---
Date of procedure: 04/03/23 Pre-op Diagnosis:: Tissue mass volar aspect left thumb at the IP joint Post-op Diagnosis:: Same 1 cm x 1 cm soft tissue mask Procedure performed:: Excision soft tissue mass left thumb 1 cm x 1 cm Surgeon:: Wally Forbes DO Anesthesia: GETA Estimated blood loss (mL): 0 Operative findings:: Encapsulated soft tissue mass left thumb Operative note:: Patient is identified preoperatively. Left thumb marked with yes my initials. Transferred operative suite. Placed upon the operating bed. General anesthesia ministered airway secured. Left upper extremity prepped draped normal sterile fashion. Once prepped and draped final operative timeout performed to identify proper patient procedure and extremity. Everyone involved the case agreed. No count indication beginning. Did receive preoperative antibiotics. Marking pen was used to le plan incision over the volar aspect of the thumb the IP joint Esmarch was used to exsanguinate extremity pneumatic tourniquet inflated to 250 mmHg. Skin knife is used to incise through skin careful dissection was taken down with the scissors to identify soft tissue mass of the volar aspect of the thumb which was superficial to the tendon in nature. It was encapsulated similar to a lipoma and in the area of a ganglion cyst. 1 soft tissue mass excised saved to send to pathology. Irrigation of wound performed. 4-0 nylon stitch used to close the skin. Sterile hand dressing placed. Patient waken anesthesia taken recovery stable condition. Condition: stable Disposition: PACU Complications:: None apparent
--- NOTE | 2023-04-03 10:15 | P.PNANES_ITS ---
[facility] Anesthesia Record Part I Anesthesia Record I Intake, IV Amount: 600 Hydration: Adequate Estimated blood loss (mL): 5 Urine output (mL): 0 Blood Products used (#): none Blood Pressure: 137/89 SaO2: 94 Pulse Rate: 92 Airway Patency: Patent Respiratory Rate: 18 Temperature: 97.3 F Patient is:: Awake (Talking) and Stable Stable to PACU at:: 10:10
[2023-04-03] MEDS: MORPHINE 2MG/ML SYRINGE 2 MG IV ×2 (10:29→10:35)
--- NOTE | 2023-04-03 10:58 | SUR.PHASEII ---
MOVED BP CUFF FROM R CALF TO RU ARM AND BLOOD PRESSURE BETTER
[2023-04-04 09:12] VITALS: BP 128/63; PULSE 94; RESP 18; TEMP 36.3; O2SAT 94
--- NOTE | 2023-04-04 09:12 | P.PNANES_ITS ---
[facility] Anesthesia Record Part II Anesthesia Record Part II Discharge Time: 10:35 Destination: Surgical Day Care (OP Surgery) PACU nurse assessment reviewed?: Yes Patient Condition:: Good Anesthesia Complications:: None Swallowing reflex intact?: Yes Airway Patency: Patent Cyanosis?: No Blood Pressure: 128/63 SaO2: 94 Respiratory Rate: 18 Pulse Rate: 94 Temperature: 97.4 F Mental Status: Alert & Oriented Pain level:: 5 Nausea and/or vomitting:: None Intake, IV Amount: 0 Hydration: Adequate
== END 2023-04-03 11:01 | disposition home or self-care (01) ==
PROVIDERS: PCP Nurse Practitioner Family; Visit Provider Orthopaedic Surgery
PROC: (CPT 26115; principal; 2023-04-03 08:45)
DX: D36.7 Benign neoplasm of other specified sites (principal)
CPT/HCPCS: 26115; 82962; 96374; J2405

== ENCOUNTER 2023-04-10 07:21 | Outpatient (CLI) | payer BC, SELFPAY ==
--- NOTE | 2023-04-10 07:21 | CT_ITS ---
FINAL REPORT TECHNIQUE: Axial imaging of the lumbar spine was obtained without contrast. Sagittal and coronal reformatted images were also obtained and reviewed. This study was performed with techniques to keep radiation doses as low as reasonably achievable (ALARA). Individualized dose reduction techniques using automated exposure control or adjustment of mA and/or kV according to the patient's size were employed. CLINICAL HISTORY: Acute onset of lower back pain with muscle spasms FINDINGS: There is no fracture. The vertebral alignment is normal. The disc spaces are preserved.There is no evidence of significant central canal stenosis. L1-L2: No evidence of central canal stenosis or neural foraminal narrowing. L2-L3: No evidence of central canal stenosis or neural foraminal narrowing. L3-L4: Mild annular disc bulge is present. No evidence of central canal stenosis or neural foraminal narrowing. L4-L5: Small central disc protrusion is present. No evidence of central canal stenosis or neural foraminal narrowing. L5-S1: Mild facet arthropathy and osteophytes are present. There is moderate right neural foraminal narrowing. IMPRESSION: Degenerative disc disease as above with small central disc protrusion at L4-5. Reviewed, Interpreted and Dictated by Phoenix Chris III, MD Transcribed by Doreen Uribe Authenticated and [facility]
== END 2023-04-10 23:59 ==
LOC: RAD 07:21
PROVIDERS: PCP Nurse Practitioner Family; Visit Provider Nurse Practitioner Family
DX: M54.50 Low back pain, unspecified (principal); M62.830 Muscle spasm of back
CPT/HCPCS: 72131

== ENCOUNTER 2023-05-01 08:31 | Outpatient (POV) | payer BC, SELFPAY ==
[2023-05-01 08:49] VITALS: BP 133/91; PULSE 86; RESP 20; BMI 43.4
--- NOTE | 2023-05-01 09:06 | EXP.PAIN.OV ---
HPI Data of Consult Patient: new to practice Consult date: 05/01/23 Requesting Physician: Rebekah Forbes APRN Primary Care Provider: Alena Reed APRN Consult Narrative Reason for consult: Low back pain History of present illness: Ms. Smith is a 42 year old female who presents today as a new patient. She is a referral from Chicho Reed's office. Today she rates her pain a 5 out of 10. Patient states that she has more pain in her low back and denies any radiating symptoms into her legs. Patient states that this happened all of a sudden back in January and she describes it as an aching sensation with occasional hot stabbing sensations that radiates across to her low back. She states certain activities make her pain worse such as bending, twisting or lifting or prolonged standing or walking. Patient does states she gets some improvement with sitting or lying down. Patient has tried [id number] Tylenol, heat and topicals with minimal relief. Patient has also been going to physical therapy for several weeks now and states that she was unable to do the traction due to worsening pain. She states when she did did the traction that she had some pain in her neck and her shoulder and still has it occasionally. Patient does state that she has done massage and heat and strengthening exercises with physical therapy and feels like it may be helping a little however the pain continues to interfere with her ability perform activities of daily living such as cooking and cleaning. Patient does state that she has a heart history with a past pulmonary embolisms. She does have a pacemaker and is on Xarelto written by Dr. Tay's office. She has been prescribed gabapentin and tramadol from outside providers. Her Robbie has been reviewed and is appropriate. CC: Rebekah Forbes APRN [facility] Disclaimer: The information contained in this section may have been updated after the patient was seen, as this information can be updated by other users. 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 Anxiety and depression Cardiomyopathy CHF (congestive heart failure) Chronic systolic heart failure Diabetes mellitus Diastolic dysfunction Dyspnea Edema Epicondylitis History of pulmonary embolus (PE) Hyperlipidemia Hypertensive disorder Hypertensive heart disease Iron deficiency anemia Nonischemic cardiomyopathy Pacemaker Palpitations Post-tonsillectomy hemorrhage Pulmonary hypertension SOB (shortness of breath) Tenderness of chest wall Surgical History H/O removal of cyst leg H/O: hysterectomy History of appendectomy History of carpal tunnel release of both wrists History of cholecystectomy History of tonsillectomy Family History Other Family history of cancer Family history of diabetes mellitus Social History (Updated 05/01/23 @ 08:49 by Lea Hoyt RN) Smoking Status: Never smoker second hand exposure: No alcohol intake: never counseling provided: none substance use type: denies use current occupational status: other Travel in the last 8 weeks: None household members: spouse housing: house 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 Review of Systems Review of Systems Review of systems:: pertinent systems reviewed and negative unless documented below Review of systems (narrative): Review of Systems: General: No recent weight changes, no fever, no sleep disturbances Respiratory: No cough, no shortness of air, no recurring pulmonary infections Cardiovascular/peripheral vascular: No chest pain, no palpitations, no edema, no shortness of breath Gastrointestinal: No new onset incontinence, normal bowel movements reported Genitourinary: No new onset incontinence Musculoskeletal: Low back pain Psychiatric: [Normal mood/affect] Neurological: [Denies weakness in extremities], [denies balance issues] Meds Home Medications and Allergies Home Medications Medication Instructions Recorded Confirmed Type biotin 10,000 mcg capsule 10,000 mcg PO DAILY Supplement 03/15/17 04/16/23 History tramadol 50 mg tablet 50 mg PO Q6H PRN PAIN 03/15/17 04/16/23 History cholecalciferol (vitamin D3) 25 1,000 unit PO DAILY Supplement 07/06/20 04/16/23 History mcg (1,000 unit) capsule furosemide 40 mg tablet 40 mg PO DAILY Fluid #30 tabs 07/17/21 04/16/23 Rx buspirone 10 mg tablet 10 mg PO DAILY swtomach 10/31/21 04/16/23 History magnesium chloride 64 mg 400 mg PO DAILY 10/26/22 04/16/23 History (magnesium chloride) tablet naproxen 375 mg tablet 375 mg PO BID PRN Pain 10/26/22 04/16/23 History rivaroxaban 20 mg tablet (Xarelto) 20 mg PO DAILY 10/26/22 04/16/23 History coenzyme Q10 200 mg capsule (Co 200 mg PO DAILY 11/07/22 04/16/23 History Q-10) sacubitril 24 mg-valsartan 26 mg 1 tab PO BID #60 tabs 11/07/22 04/16/23 Rx tablet (Entresto) omeprazole 20 mg capsule,delayed 20 mg PO BID 11/30/22 04/16/23 History release ondansetron HCl 4 mg tablet 4 mg PO Q6H PRN Nausea 11/30/22 04/16/23 History triamcinolone acetonide 0.1 % 1 applic topical DAILY PRN 12/28/22 04/16/23 History topical cream psoriasis pen needle, diabetic 32 gauge x #100 ea 01/14/23 04/16/23 Rx 5/16 (Comfort EZ Pen [place]) spironolactone 25 mg tablet 25 mg PO DAILY Fluid #90 tabs 01/23/23 04/16/23 Rx pen needle, diabetic 31 gauge x #1,200 ea 01/30/23 04/16/23 History 5/16 (BD Ultra-Fine Short Pen Needle) gabapentin 600 mg tablet 600 mg PO BID 30 days #60 tabs 03/01/23 04/16/23 Rx hydroxychloroquine 200 mg tablet 200 mg PO BID lupus 30 days #60 03/01/23 04/16/23 Rx (Plaquenil) tabs sitagliptin phosphate 50 1 tab PO BID 30 days #60 tabs 03/01/23 04/16/23 Rx mg-metformin 500 mg tablet (Janumet) insulin glargine 100 unit/mL (3 14 unit (0.14 mL) SQ HS 30 days 03/06/23 04/16/23 Rx mL) subcutaneous pen (Basaglar #4.2 mL KwikPen U-100 Insulin) baclofen 10 mg tablet 10 mg PO DAILY 03/22/23 04/16/23 History metformin 750 mg tablet,extended 750 mg PO BID 03/22/23 04/16/23 History release 24 hr rosuvastatin 40 mg tablet 20 mg PO DAILY 03/29/23 04/16/23 History blood sugar diagnostic (Accu-Chek #100 ea 04/01/23 04/16/23 Rx Guide test strips) blood-glucose meter (Accu-Chek #1 ea 04/01/23 04/16/23 Rx Guide Glucose Meter) lancets (Accu-Chek Softclix #100 ea 04/01/23 04/16/23 Rx Lancets) hydroxyzine HCl 25 mg tablet 25 mg PO Q8H PRN 04/12/23 04/16/23 History New Prescriptions to Start Prescriptions: Allergies Allergy/AdvReac Type Severity Reaction Status Date / Time dapagliflozin [From [facility]] AdvReac Cramping Verified 04/16/23 09:15 of the Muscles jardiance AdvReac Uncoded 04/16/23 09:15 Objective Vital signs: Pulse Resp BP O2 Del Method 86 20 133/91 H Room Air 05/01/23 08:49 05/01/23 08:49 05/01/23 08:49 05/01/23 08:49 Narrative: Physical Exam: General: Alert and oriented x3, no acute distress, pleasant and cooperative Lungs: Respirations even and unlabored, symmetrical chest expansion Eyes: PERRL Musculoskeletal: Flexion and extension of lumbar [spine] somewhat guarded secondary to pain, [antalgic gait noted] positive Kemps test Neurological: Speech clear, no gross sensory deficit Additional findings Additional findings: FINAL REPORT TECHNIQUE: Axial imaging of the lumbar spine was obtained without contrast. Sagittal and coronal reformatted images were also obtained and reviewed. This study was performed with techniques to keep radiation doses as low as reasonably achievable (ALARA). Individualized dose reduction techniques using automated exposure control or adjustment of mA and/or kV according to the patient's size were employed. CLINICAL HISTORY: Acute onset of lower back pain with muscle spasms FINDINGS: There is no fracture. The vertebral alignment is normal. The disc spaces are preserved.There is no evidence of significant central canal stenosis. L1-L2: No evidence of central canal stenosis or neural foraminal narrowing. L2-L3: No evidence of central canal stenosis or neural foraminal narrowing. L3-L4: Mild annular disc bulge is present. No evidence of central canal stenosis or neural foraminal narrowing. L4-L5: Small central disc protrusion is present. No evidence of central canal stenosis or neural foraminal narrowing. L5-S1: Mild facet arthropathy and osteophytes are present. There is moderate right neural foraminal narrowing. IMPRESSION: Degenerative disc disease as above with small central disc protrusion at L4-5. Reviewed, Interpreted and Dictated by Phoenix Chris III, MD Transcribed by Dorene Uribe Authenticated and [facility] Assessment and Plan *Assessment and plan (1) Lumbar degenerative disc disease: Status: Acute Category: Medical Code(s): M51.36 - Other intervertebral disc degeneration, lumbar region (2) Lumbar facet arthropathy: Status: Acute Category: Medical Code(s): M47.816 - Spondylosis without myelopathy or radiculopathy, lumbar region Plan Patient is experiencing worsening pain in her low back with limited range of motion and a positive Kemps test. I have discussed with patient that she may benefit from a lumbar medial branch block. Risk and benefits were discussed with patient and she would like to proceed forward with this plan of care. Patient is on Xarelto and we will reach out to Dr. Tay's office and can confirm that she can stop this medication prior to this injection. I have reviewed with the patient if she has 2 successful blocks we will plan on doing a lumbar RFA at a later date. Patient has tried and failed conservative therapies including oral medications, heat and ice, topicals, current physical therapy for several weeks. We will schedule the patient for a lumbar medial branch block bilaterally L4-L5 and L5-S1 under fluoroscopy. I will also order the patient a compounded cream. Patient has been instructed to contact the clinic with any concerns before the next appointment. Dr. Rivera has reviewed this note and agrees with this plan of care. This note was dictated using voice recognition software and make contain errors or omissions.
== END 2023-05-01 23:59 ==
LOC: SC.PAIN 08:31
PROVIDERS: PCP Nurse Practitioner Family; Visit Provider Nurse Practitioner Family
DX: M51.36 Other intervertebral disc degeneration, lumbar region (principal); M47.816 Spondylosis without myelopathy or radiculopathy, lumbar region
CPT/HCPCS: 99202; G0463

== ENCOUNTER 2023-05-15 09:25 | Outpatient (CLI) | payer BC, SELFPAY ==
[2023-05-15 13:04] LABS: T4 (Thyroxine) 13.3 ug/dl (5.53-11.0)
[2023-05-15 13:18] LABS: Thyroid Stimulating Hormone 0.02 uIU/mL (0.465-4.68)
[2023-05-16 09:59] LABS: Thyroid Peroxidase Antibodies 30 IU/mL (0-34); Triiodothyronine (T3) Free 3.7 pg/mL (2.0-4.4)
[2023-05-16 15:11] LABS: Thyroglobulin Level <1.0 IU/mL (0.0-0.9)
== END 2023-05-15 23:59 ==
LOC: LAB 09:25
PROVIDERS: PCP Nurse Practitioner Family; Visit Provider Nurse Practitioner Family
DX: R79.89 Other specified abnormal findings of blood chemistry (principal)
CPT/HCPCS: 36415; 84436; 84439; 84443; 84481; 86376; 86800

== ENCOUNTER 2023-05-16 08:00 | Outpatient (RCR) | payer BC, SELFPAY ==
--- NOTE | 2023-04-18 08:21 | HMH.PTOPEV ---
PT Outpatient Evaluation Rehab PT Outpatient Evaluation Start: 04/18/23 08:00 Freq: Status: Active Protocol: Document 04/18/23 08:12 MICKY (Rec: 04/18/23 08:21 MICKY [id number]) E-signed By Burak Lewis, PT Outpatient Therapy Subjective History Subjective History Pt reports h/o chronic LBP beginning ~3 months, reporting 'I was just standing in kitchen making a sandwich and I felt a burning sensation and pain in my LBP.' Pt reports pain refers into bilateral lumbar mm, but does not radiate in LE's. Pt had CT scan of lumbar spine which revealed L4-5 disc protrusion and DDD. PMH: PE into heart lead to pacemaker and defrib. placement New diagnosis of cancer in past 12 No months? Chief Complaint Pain,Stiff Symptom Type Ache,Throb,Dull Symptoms Relieved By Rest/Positioning,Heat Symptoms Aggravated By Standing,Physical Activity, Twisting,Walking,Lifting Prior Functional Limitations Lifting,Housework,Standing, Walking,Bending/Stooping Current Functional Limitations Lifting,Housework,Standing, Recreation Activity,Bending/ Stooping Symptom Description Constant but Variable Level of pain today (0-10) 5 Pain scale - at its best (0-10) 5 Pain scale - at its worst (0-10) 8 Lumbopelvic Eval Posture Thoracic Spine Posture Standing Position Flattened Lumbar Spine Posture Standing Position Increased Lordosis Assistive device Assistive Devices None / NA Gait Observation General Gait Pattern Observation Antalgic Gait,Wide Based Gait Palapation tenderness bilateral lumbar spinal tenderness Yes: 2/4 paraspinal tenderness Yes: 3/4 buttock tenderness Yes: 3/4 Lumbar/Sacral Palpation Findings Tenderness,Trigger Point, Muscle Guarding Accessory Movement L-spine Vertebrae Accessory Movements Central P/A [place] that Elicit Symptoms L3 bilateral L4 bilateral L5 bilateral Range of Motion Lumbar Spine Active Flexion Range of 0-35 Motion (degrees) Lumbar Spine Active Extension Range of 0-30 Motion (degrees) Left Lumbar Spine Lateral Flexion Active 0-25 Range of Motion (degrees) Right Lumbar Spine Lateral Flexion 0-25 Active Range of Motion (degrees) Lumbar Spine ROM Limitations Soft Tissue Tightness,Pain Manual Muscle Test Bilateral Knee Extension Strength Grade 5 Normal Knee Flexion Strength Grade 4 Good Hip Flexion Strength Grade 4 Good Hip Abduction Strength Grade 4- Good- Hip Adduction Strength Grade 5 Normal Extensor Hallucis Longus Strength Grade 5 Normal Ankle Dorsiflexion Strength Grade 5 Normal Gastronemius/Soleus Strength Grade 5 Normal Special Tests Hip Piriformis Test Negative Left,Negative Right Sciatic Nerve Tension Test Positive Left,Positive Right Lumbar Long [place] Distraction Test/Manual Positive Traction Oswestry Index Section 1 Pain Intensity The pain comes and goes and is severe Section 2 Personal Care (Washing,Dresing) my way of washing or dressing even though it causes some pain Section 3 Lifting Pain prevents me from lifting weights off the floor Section 4 Walking I cannot walk more than one mile wihtout increasing pain Section 5 Sitting Pain prevents me from sitting for more than one hour Section 6 Standing I cannot stand more than 10 minutes without increasing pain Section 7 Sleeping I get no pain in bed Section 8 Social Life My social life is normal but increases the degree of pain Section 9 Traveling Pain restricts me to short necessary journeys under 30 minutes Section 10 Changing Degreee of Pain My pain is gradually getting worse Score and Risk Level Oswestry Sc 24 Oswestry Risk Level Moderate Disability Outpatient Therapy Assessment Impairments Problems/Impairmments Palpation Tenderness,Impaired Range of Motion,Impaired Strength,Impaired Gait Pattern ,Impaired Walking,Impaired Standing,Impaired Household Care,Subjective C/O Pain, Impaired Self Care/Self Management Prognosis Rehab Potential Good Clinical Impression Consistent with Diagnosis Yes Short Term Goals Number of Weeks 4 Decreased Palpation Tenderness Yes: 1-2/4 lumbar mm Increase Range of Motion Yes: 50-75% of WFL LUMBAR AROM Increase Strength Yes: 4/5 B/L LE'S Increase Ability to Walk Yes: 15MIN Increase Ability to Stand Yes: 15MIN Improve Ability For Household Care Yes: 15MIN Improve Oswestry Score Yes: 18-20 Decrease Subjective C/O Pain Yes: 3-4/10 W/ABOVE ACTIVITIES Patient to be Ind w/ HEP Yes Sensory Scientist Goals Number of Weeks 6-8 Decreased Palpation Tenderness Yes: 0-1/4 LUMBAR PARA. MM Increase Range of Motion Yes: WFL LUMBAR AROM Increase Strength Yes: 4+-5/5 B/L LE'S Improve Gait Pattern without Assistive Yes: WFL Device Increase Ability to Walk Yes: 30MIN Increase Ability to Stand Yes: 30MIN Improve Ability For Household Care Yes: 30MIN Improve Oswestry Score Yes: 12-14 Decrease Subjective C/O Pain Yes: 0-2/10 W/ABOVE ACTIVITIES Patient to be Ind w/ Advanced HEP Yes Outpatient Therapy Plan of Care Treatment Plan May Include Therapeutic Exercise Including Home Yes Exercise Program Manual Therapy Techniques Yes Neuromuscular Re-education Yes Therapeutic Activities to Return to Yes Previous Functional/Work Level ADL/Self Care Education Yes Mechanical Traction Yes Thermal Modalities Yes Ultrasound/Phonophoresis Yes Eval/Re-Eval Yes Frequency Times per week 2-3 Duration Number of Weeks 6-8 Addendums This patient is a candidate for social No or vocational rehab? Patient/Guardian verbally acknowledges Yes understanding of treatment program and consents to further treatment? Patient/Guardian verbally acknowledges Yes understanding of diagnosis, prognosis and goals for treatment? Eval Complexity PT Charges 41956 - Moderate Complexity Shoulder/Elbow Eval Shoulder Objective Measurements Elbow Objective Measurements PHYSICIAN CERTIFICATION: I certify the specified therapy services for Gi Smith are required, authorized, and reviewed every 30 days.
--- NOTE | 2023-05-16 08:24 | HMH.RHREAS ---
Rehab Reassessment Rehab OP Re-assessment Start: 04/18/23 08:00 Freq: Status: Active Protocol: Document 05/16/23 07:57 MICKY (Rec: 05/16/23 08:24 MICKY [id number]) E-signed By Burak Lewis, PT Oswestry Index Section 1 Pain Intensity The pain comes and goes and is moderate Section 2 Personal Care (Washing,Dresing) change my way of washing or dressing in order to avoid pain Section 3 Lifting lifting heavy weights off the floor, but I can manage if they are Section 4 Walking I cannot walk more than 1/4 mile without increasing pain Section 5 Sitting I can sit in any chair for as long as I like Section 6 Standing I avoid standing because it increases the pain immediately Section 7 Sleeping I get pain in bed, but it does not prevent me from sleeping well Section 8 Social Life My social life is normal and gives me no extra pain Section 9 Traveling I get some pain when traveling , but none of my usual forms of travel m Section 10 Changing Degreee of Pain My pain fluctuates, but overall is definitely getting better Score and Risk Level Oswestry Sc 17 Oswestry Risk Level Moderate Disability Rehab Re-assessment Subjective Subjective Pt reports improved LBP at 3-4 /10 on VAS and feels 70% better overall since I eval. Pt also reports improved tolerance to sitting and walking related to LBP since I eval. Objective Objective Notes AROM: LUMBAR FLX 0-60, EXT 0- 30, LEFT SB 0-30, R SB 0-40 MMT: B/L HIP FLX 4-4+/5, B/L HIP ABD 5/5, B/L HIP ADD,EXT 4 +-5/5, B/L KNEE EXT, FLX 5/5, B/L DF 5/5 TTP: LEFT LUMBAR PARASPINALS 2 /4, RIGHT LUMBAR PARASPINALS 1 -2/4 GAIT: WFL ON LEVEL TERRAIN OSWESTRY 17 VS 24 ON I EVAL Assessment Progress Assessment Progressing as Expected Assessment Notes SIGNIFICANT IMPROVEMENTS IN AROM, STRENGTH, TTP, AND OSWESTRY SCORE SINCE I EVAL Patient goals met STG'S 11/03 LTG'S 05/04 Goals Not Met LTG'S 09/03 Plan Plan Pt to continue w/skilled P.T. to make further improvements in lumbar AROM, strength, and TTP to allow for optimal function Frequency of Therapy 1-2x/wk Duration of therapy 4-6wks Time and Billing Re-Eval Time 12 Re-Eval Billing Units 1 PHYSICIAN CERTIFICATION: I certify the specified therapy services for Gi Smith are required, authorized, and reviewed every 30 days.
== END 2023-05-16 08:05 | disposition home or self-care (01) ==
LOC: PT 08:00
PROVIDERS: PCP Nurse Practitioner Family; Visit Provider Nurse Practitioner Family
DX: M51.26 Other intervertebral disc displacement, lumbar region (principal); M51.36 Other intervertebral disc degeneration, lumbar region
CPT/HCPCS: 97010; 97012; 97110; 97140; 97163; 97164; 97530

== ENCOUNTER 2023-05-21 13:28 | Day surgery (SDC) | payer BC, SELFPAY ==
[2023-05-21 14:04] VITALS: BP 116/74; PULSE 95; RESP 16; TEMP 36.4; O2SAT 94; BMI 43.4
--- NOTE | 2023-05-21 14:32 | EXP.PAIN.PRO ---
Procedure Date: 05/21/23 Time: 14:25 Anesthesiologist:: Gustavo Ahumada CRNA Complications:: None Pre-procedure Diagnosis:: Degenerative disc lumbar spine multilevels. Lumbar radiculopathy. Lumbar spondylosis. Multilevel lumbar facet arthropathy. Post-procedure Diagnosis:: Same. Indications for Procedure:: Patient is a pleasant 42-year-old female comes our clinic today for bilateral L4-5, L5-S1 medial branch blocks/facet injection. Patient describes low back pain as constant, dull, aching. Patient reports pain intensifies with standing. Pain intensifies with lumbar flexion, extension, left and right rotation. She rates pain 7/10. Procedure Details:: Informed consent was obtained and the risk and benefits of the procedure was explained to the patient. Patient was taken to the procedure room where noninvasive monitors were placed, including noninvasive blood pressure cuff as well as pulse oximeter. The area over the lumbar spine was cleansed using chlorhexidine as a cleansing solution. I anesthetized the skin and subcutaneous tissues with 1% Lidocaine. I placed 22-gauge spinal needles into the facet joint/ medial branches of [L3-L4, L4-L5, and L5-S1] bilaterally. Needle placement was confirmed with fluoroscopy. After confirmation of needle placement, each site was injected with 1 mL of 1% lidocaine and 0.25 % Marcaine and 10 mg of Depo-Medrol. A total of 80 mg of depo medrol was used for bilateral medial branch blocks of [L3-L4, L4-L5, and L5-S1] bilaterally. Patient tolerated the procedure without difficulty. There were no complications. Plan and Disposition:: Patient was discharged without incident.
[2023-05-21 14:33] VITALS: BP 134/59; PULSE 89; RESP 20; O2SAT 95
[2023-05-21 14:40] VITALS: BP 134/80; PULSE 91; RESP 20; O2SAT 97
== END 2023-05-21 14:41 | disposition home or self-care (01) ==
PROVIDERS: PCP Nurse Practitioner Family; Visit Provider Nurse Anesthetist, Certified Registered
DX: M47.896 Other spondylosis, lumbar region (principal); M51.16 Intervertebral disc disorders with radiculopathy, lumbar region
CPT/HCPCS: 64493; 64494

== ENCOUNTER 2023-05-23 07:01 | Outpatient (CLI) | payer BC, SELFPAY ==
--- NOTE | 2023-05-23 07:06 | US_ITS ---
FINAL REPORT CLINICAL HISTORY: Thyroid tenderness and low TSH level COMPARISON: None FINDINGS: THYROID ULTRASOUND: The right lobe of the thyroid measures 4.1 x 1.2 x 2.2 cm in size. The left lobe of the thyroid measures 4.7 x 1 x 1.7 cm in size. The isthmus measures 3 mm in thickness. No focal nodules are identified, however the thyroid gland is somewhat heterogeneous. IMPRESSION: No focal nodules identified in the thyroid gland. Thyroid gland is somewhat heterogeneous in echotexture without a focal abnormality. Reviewed, Interpreted and Dictated by Rubens Rivera MD Transcribed by Cindi Redmond Authenticated and [facility]
== END 2023-05-23 23:59 ==
LOC: RAD 07:01
PROVIDERS: PCP Nurse Practitioner Family; Visit Provider Nurse Practitioner Family
DX: R79.89 Other specified abnormal findings of blood chemistry (principal)
CPT/HCPCS: 76536

== ENCOUNTER 2023-06-10 08:00 | Outpatient (POV) | payer BC, SELFPAY ==
[2023-06-10 08:33] VITALS: BP 95/60; PULSE 84; RESP 18; TEMP 36.7; O2SAT 99; BMI 44.8
--- NOTE | 2023-06-10 10:23 | A.OFFVIS_ITS ---
[facility] Pain Management SOAP Note Subjective:: Patient is a pleasant 42-year-old female who presents today for follow-up of bilateral lumbar medial branch block L4-L5 and L5-S1 on 05/21/2023. Today she rates her pain a 6 out of 10. Patient states that she did not notice significant relief following this injection. She states that she feels like she may even have a little bit worse pain into her buttocks area. She describes this as I aching, throbbing sensation that is worse with prolonged sitting or laying down. Patient states that the pain does interfere with her ability to perform activities of daily living such as cooking and cleaning. Patient was prescribed compounded cream at our last visit however states that she really did not notice much difference with it either. Patient does have significant cardiac history and is on a blood thinner written by Dr. Tay's office. Patient is prescribed gabapentin and tramadol from outside providers. Her Robbie has been reviewed. Review of Systems: General: No recent weight changes, no fever, no sleep disturbances Respiratory: No cough, no shortness of air, no recurring pulmonary infections Cardiovascular/peripheral vascular: No chest pain, no palpitations, no edema, no shortness of breath Gastrointestinal: No new onset incontinence, normal bowel movements reported Genitourinary: No new onset incontinence Musculoskeletal: Low back pain, buttocks pain Psychiatric: [Normal mood/affect] Neurological: [Denies weakness in extremities], [denies balance issues] Objective:: Physical Exam: General: Alert and oriented x3, no acute distress, pleasant and cooperative Lungs: Respirations even and unlabored, symmetrical chest expansion Eyes: PERRL Musculoskeletal: Flexion and extension of lumbar [spine] somewhat guarded secondary to pain, [antalgic gait noted] point tenderness along bilateral SIs with positive bilateral Mara's, Sara's, Gaenslen's, compression and distraction exam Neurological: Speech clear, no gross sensory deficit Assessment:: Degenerative disc disease of lumbar spine with lumbar facet arthropathy, bilateral sacroiliitis Plan:: Patient continues to experience significant pain in her back and buttocks area with limited range of motion of her lumbar spine. Patient did have point tenderness on her bilateral SI region with a positive bilateral Mara's, Sara's, Gaenslen's, compression and distraction exam. I discussed with patient that she may benefit from bilateral SI injections. Risk and benefits were discussed with the patient and at this time she would like to wait. I have counseled the patient that between now and her next visit she can call and schedule these injections over the phone. I have recommended that she continue to use heat and ice along with Tylenol. I will send in a 2-week dose of methocarbamol 500 mg twice a day. Patient will return to clinic in 2 weeks for reevaluation of symptoms and plan of care. Patient has been instructed to contact the clinic with any concerns before the next appointment. Dr. Rivera has reviewed this note and agrees with this plan of care. This note was dictated using voice recognition software and make contain errors or omissions. [facility] Disclaimer: The information contained in this section may have been updated after the p atient was seen, as this information can be updated by other users. 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 Anxiety and depression Cardiomyopathy CHF (congestive heart failure) Chronic systolic heart failure Diabetes mellitus Diastolic dysfunction Dyspnea Edema Epicondylitis History of pulmonary embolus (PE) Hyperlipidemia Hypertensive disorder Hypertensive heart disease Iron deficiency anemia Nonischemic cardiomyopathy Pacemaker Palpitations Post-tonsillectomy hemorrhage Pulmonary hypertension SOB (shortness of breath) Tenderness of chest wall Surgical History H/O removal of cyst leg H/O: hysterectomy History of appendectomy History of carpal tunnel release of both wrists History of cholecystectomy History of tonsillectomy Family History Other Family history of cancer Family history of diabetes mellitus Social History Smoking Status: Never smoker second hand exposure: No alcohol intake: never counseling provided: none substance use type: denies use current occupational status: other Travel in the last 8 weeks: None household members: spouse housing: house 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
== END 2023-06-10 23:59 | disposition home or self-care (01) ==
PROVIDERS: PCP Nurse Practitioner Family; Visit Provider Nurse Practitioner Family
DX: M51.36 Other intervertebral disc degeneration, lumbar region (principal); M47.896 Other spondylosis, lumbar region; M46.1 Sacroiliitis, not elsewhere classified
CPT/HCPCS: 99212; G0463

== ENCOUNTER 2023-06-18 10:58 | Outpatient (CLI) | payer BC, SELFPAY ==
[2023-06-18 11:39] LABS: 25-OH Vitamin D, Total 44.9 ng/mL (30-100)
[2023-06-18 11:40] LABS: T4 (Thyroxine) 10.4 ug/dl (5.53-11.0)
[2023-06-18 11:43] LABS: Intact Parathyroid Hormone 5.5 pg/mL (7.5-53.5)
[2023-06-18 11:57] LABS: Ferritin 44.3 ng/ml (6.24-137)
[2023-06-18 12:01] LABS: Thyroid Stimulating Hormone 0.04 uIU/mL (0.465-4.68)
[2023-06-18 12:13] LABS: Hemoglobin A1C 9.3 % (4.0-6.0)
[2023-06-18 12:21] LABS: Vitamin B12 386 pg/mL (239-931)
[2023-06-19 08:18] LABS: Thyroid Peroxidase Antibodies 28 IU/mL (0-34); Triiodothyronine (T3) Free 3.4 pg/mL (2.0-4.4)
[2023-06-21 00:09] LABS: Magnesium,RBC 3.7 mg/dL (3.7-7.0)
[2023-06-22 18:12] LABS: Vitamin C 0.3 mg/dL (0.4-2.0)
[2023-07-01 06:12] LABS: Zinc 133 ug/dL (44-115)
[2023-07-03 16:32] LABS: Selenium 247 ug/L (100-340)
== END 2023-06-18 23:59 | disposition home or self-care (01) ==
LOC: LAB.DROPOF 10:59
PROVIDERS: PCP Nurse Practitioner Family; Visit Provider Nurse Practitioner Family
DX: E05.90 Thyrotoxicosis, unspecified without thyrotoxic crisis or storm (principal); R94.6 Abnormal results of thyroid function studies; D50.9 Iron deficiency anemia, unspecified; R79.89 Other specified abnormal findings of blood chemistry; D64.9 Anemia, unspecified; E11.69 Type 2 diabetes mellitus with other specified complication; Z79.84 Long term (current) use of oral hypoglycemic drugs; Z79.899 Other long term (current) drug therapy
CPT/HCPCS: 82180; 82306; 82607; 82728; 83036; 83735; 83970; 84255; 84436; 84443; 84481; 84482; 84630; 86376

== ENCOUNTER 2023-06-26 09:07 | Outpatient (POV) | payer BC, SELFPAY ==
[2023-06-26 09:35] VITALS: BP 114/69; PULSE 88; RESP 16; O2SAT 97; BMI 43.4
--- NOTE | 2023-06-26 10:26 | A.OFFVIS_ITS ---
[facility] Pain Management SOAP Note Subjective:: Patient is a pleasant 42-year-old female who presents today for follow-up. Today she rates her pain a 4 out of 10. Patient denies any new trauma or injury. Patient does state that she continues to have overall low back and buttocks pain. Patient states she did recently go for massage and it significantly improved her overall pain symptoms. She states that they did push on pressure points and felt like that made a significant difference. Patient does state that the methocarbamol 500 mg twice a day that we prescribed at the last visit did also help. Patient states that she is continue to use her compounded cream and it does seem like it helps a little bit more. She is prescribed gabapentin and tramadol from outside providers. Her Robbie has been reviewed. Review of Systems: General: No recent weight changes, no fever, no sleep disturbances Respiratory: No cough, no shortness of air, no recurring pulmonary infections Cardiovascular/peripheral vascular: No chest pain, no palpitations, no edema, no shortness of breath Gastrointestinal: No new onset incontinence, normal bowel movements reported Genitourinary: No new onset incontinence Musculoskeletal: Low back pain, buttocks pain Psychiatric: [Normal mood/affect] Neurological: [Denies weakness in extremities], [denies balance issues] Objective:: Physical Exam: General: Alert and oriented x3, no acute distress, pleasant and cooperative Lungs: Respirations even and unlabored, symmetrical chest expansion Eyes: PERRL Musculoskeletal: Flexion and extension of lumbar [spine] somewhat guarded secondary to pain, [antalgic gait noted] Neurological: Speech clear, no gross sensory deficit Assessment:: Degenerative disc disease of lumbar spine with lumbar facet arthropathy and bilateral sacroiliitis Plan:: Patient overall is doing well with the addition of massage. I have discussed with the patient in future she still may benefit from bilateral SI injections however we will follow-up with this at future visits. I will send in refills of the methocarbamol 500 mg twice daily and provide a 3-month supply of this medication. Patient will return to clinic in 3 months for reevaluation of symptoms and plan of care. Patient has been instructed to contact the clinic with any concerns before the next appointment. Dr. Rivera has reviewed this note and agrees with this plan of care. This note was dictated using voice recognition software and make contain errors or omissions. PFSH PFSH Disclaimer: The information contained in this section may have been updated after the patient was seen, as this information can be updated by other users. 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 Anxiety and depression Cardiomyopathy CHF (congestive heart failure) Chronic systolic heart failure Diabetes mellitus Diastolic dysfunction Dyspnea Edema Epicondylitis History of pulmonary embolus (PE) Hyperlipidemia Hypertensive disorder Hypertensive heart disease Iron deficiency anemia Nonischemic cardiomyopathy Pacemaker Palpitations Post-tonsillectomy hemorrhage Pulmonary hypertension SOB (shortness of breath) Tenderness of chest wall Surgical History H/O removal of cyst leg H/O: hysterectomy History of appendectomy History of carpal tunnel release of both wrists History of cholecystectomy History of tonsillectomy Family History Other Family history of cancer Family history of diabetes mellitus Social History Smoking Status: Never smoker second hand exposure: No alcohol intake: never counseling provided: none substance use type: denies use current occupational status: other Travel in the last 8 weeks: None household members: spouse housing: house 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
== END 2023-06-26 23:59 | disposition home or self-care (01) ==
PROVIDERS: PCP Nurse Practitioner Family; Visit Provider Nurse Practitioner Family
DX: M51.36 Other intervertebral disc degeneration, lumbar region (principal); M47.816 Spondylosis without myelopathy or radiculopathy, lumbar region; M46.1 Sacroiliitis, not elsewhere classified
CPT/HCPCS: 99212; G0463

== ENCOUNTER 2023-09-17 16:10 | Outpatient (CLI) | payer BC, SELFPAY ==
[2023-09-17 13:48] LABS: Hemoglobin A1C 7.8 % (4.0-6.0)
[2023-09-17 14:36] LABS: Alanine Aminotransferase 31 U/L (12-78); Albumin Level 4.1 g/dl (3.5-5.0); Albumin/Globulin Ratio 1.5 (1.1-1.8); Alkaline Phosphatase 85 U/L (38-126); Anion Gap 15.2 mEq/L (5-15); Aspartate Amino Transferase 30 U/L (14-36); Bilirubin,Total 0.6 mg/dl (0.2-1.3); Blood Urea Nitrogen 16 mg/dl (7-17); Calcium 9.6 mg/dl (8.4-10.2); Carbon Dioxide 25 mmol/L (22.0-30.0); Chloride 102 mmol/L (98-107); Chol/HDL Ratio 2.9 (1-3.5); Cholesterol 125 mg/dl (140-200); Estimated Glomerular Filt Rate 68 ml/min (>60); GFR (African American) 83 ML/MIN (>60); Globulin 2.7 g/dL (1.3-3.2); Glucose 152 mg/dl (74-100); HDL Cholesterol 43 mg/dl (40-60); Potassium 5.2 mmoL/L (3.5-5.1); Sodium 137 mmol/L (136-145); Total Protein,Serum 6.8 g/dl (6.3-8.2); Triglycerides 172 mg/dl (30-150); VLDL Cholesterol 34 mg/dL (0-40)
[2023-09-17 14:48] LABS: Direct LDL Cholesterol 56.71 mg/dL (100-129)
[2023-09-17 14:53] LABS: 25-OH Vitamin D, Total 59.2 ng/mL (30-100)
[2023-09-17 15:06] LABS: Thyroid Stimulating Hormone 0.02 uIU/mL (0.465-4.68)
[2023-09-17 15:25] LABS: Vitamin B12 357 pg/mL (239-931)
[2023-09-17 16:34] LABS: Ferritin 27.3 ng/ml (6.24-137)
== END 2023-09-17 23:59 | disposition home or self-care (01) ==
LOC: LAB.DROPOF 16:11
PROVIDERS: PCP Nurse Practitioner Family; Visit Provider Nurse Practitioner Family
DX: E05.90 Thyrotoxicosis, unspecified without thyrotoxic crisis or storm (principal); D50.9 Iron deficiency anemia, unspecified; E78.2 Mixed hyperlipidemia; E11.69 Type 2 diabetes mellitus with other specified complication; R79.89 Other specified abnormal findings of blood chemistry; E78.5 Hyperlipidemia, unspecified
CPT/HCPCS: 80053; 80061; 82306; 82533; 82607; 82728; 83036; 84443

== ENCOUNTER 2023-10-21 08:56 | Outpatient (POV) | payer BC, SELFPAY ==
[2023-10-21 09:20] VITALS: BP 100/61; PULSE 91; RESP 16; O2SAT 96; BMI 43.9
--- NOTE | 2023-10-21 09:21 | EXP.PAIN.SOA ---
[facility] Disclaimer: The information contained in this section may have been updated after the patient was seen, as this information can be updated by other users. 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 Anxiety and depression Cardiomyopathy CHF (congestive heart failure) Chronic systolic heart failure Diabetes mellitus Diastolic dysfunction Dyspnea Edema Epicondylitis History of pulmonary embolus (PE) Hyperlipidemia Hypertensive disorder Hypertensive heart disease Iron deficiency anemia Nonischemic cardiomyopathy Pacemaker Palpitations Post-tonsillectomy hemorrhage Pulmonary hypertension SOB (shortness of breath) Tenderness of chest wall Surgical History H/O removal of cyst leg H/O: hysterectomy History of appendectomy History of carpal tunnel release of both wrists History of cholecystectomy History of tonsillectomy Family History Other Family history of cancer Family history of diabetes mellitus Social History Smoking Status: Never smoker second hand exposure: No alcohol intake: never counseling provided: none substance use type: denies use current occupational status: other Travel in the last 8 weeks: None household members: spouse housing: house 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 Today she rates her pain a 6 out of 10. Patient denies any new trauma or injury. She states that she still continues to have the same pain they are in her low back and hip area. Patient does state that the methocarbamol 500 mg twice a day does seem to help however often times through the day she cannot tolerate it so she just takes it at night. Patient does also state that she did try the compounded cream however it only did minimal improvement around her low back but did help her ankle. Patient does state that she initially was getting improvement with massage however over time it did not work as well and insurance would not cover this. She also did look into chiropractor therapy however the therapist told her that he did not think that they be able to provide any additional improvement. Her Robbie has been reviewed and is appropriate. Review of Systems: General: No recent weight changes, no fever, no sleep disturbances Respiratory: No cough, no shortness of air, no recurring pulmonary infections Cardiovascular/peripheral vascular: No chest pain, no palpitations, no edema, no shortness of breath Gastrointestinal: No new onset incontinence, normal bowel movements reported Genitourinary: No new onset incontinence Musculoskeletal: Low back pain Psychiatric: [Normal mood/affect] Neurological: [Denies weakness in extremities], [denies balance issues] Pain at rest (0-10 scale): 6 Objective Objective:: Physical Exam: General: Alert and oriented x3, no acute distress, pleasant and cooperative Lungs: Respirations even and unlabored, symmetrical chest expansion Eyes: PERRL Musculoskeletal: Flexion and extension of lumbar [spine] somewhat guarded secondary to pain, [antalgic gait noted] Neurological: Speech clear, no gross sensory deficit Has patient had previous pain injection?: No Conservative treatment options previously tried: Home exercise plan Length of treatment: Longer than 6 weeks Meds Home Medications and Allergies Home Medications ?Medication ?Instructions ?Recorded ?Confirmed ?Type biotin 10,000 mcg capsule 10,000 mcg PO DAILY Supplement 03/15/17 09/17/23 History magnesium chloride 64 mg 400 mg PO DAILY 10/26/22 09/17/23 History (magnesium chloride) tablet coenzyme Q10 200 mg capsule (Co 200 mg PO DAILY 11/07/22 09/17/23 History Q-10) insulin glargine 100 unit/mL (3 14 unit (0.14 mL) SQ HS 30 days 03/06/23 09/17/23 Rx mL) subcutaneous pen (Basaglar #4.2 mL KwikPen U-100 Insulin) carvedilol 25 mg tablet 25 mg PO BID #180 tabs 05/15/23 09/17/23 Rx cholecalciferol (vitamin D3) 10 10 mcg PO DAILY 05/15/23 09/17/23 History mcg (400 unit) capsule psyllium 1 tbsp PO DAILY 05/15/23 09/17/23 History tramadol 50 mg tablet 50 mg PO Q6H PRN PAIN #120 tabs 06/04/23 09/17/23 Rx spironolactone 25 mg tablet 25 mg PO DAILY Fluid #90 tabs 07/18/23 09/17/23 Rx rosuvastatin 40 mg tablet 20 mg (1/2 x 40 mg) PO DAILY #90 08/16/23 09/17/23 Rx tabs sacubitril 49 mg-valsartan 51 mg 1 tab PO BID #180 tabs 09/16/23 09/17/23 Rx tablet (Entresto) blood sugar diagnostic (Accu-Chek 09/17/23 09/17/23 History Guide test strips) blood-glucose meter (Accu-Chek 09/17/23 09/17/23 History Guide Glucose Meter) buspirone 10 mg tablet 10 mg PO .COMPLEX 09/17/23 09/17/23 History furosemide 40 mg tablet 40 mg PO DAILY PRN Fluid 09/17/23 09/17/23 History hydroxyzine HCl 25 mg tablet 25 mg PO .COMPLEX 09/17/23 09/17/23 History lancets (Accu-Chek Softclix 09/17/23 09/17/23 History Lancets) omeprazole 20 mg capsule,delayed 20 mg PO BID 09/17/23 09/17/23 History release ondansetron HCl 4 mg tablet 4 mg PO Q4-6H PRN 09/17/23 09/17/23 History pen needle, diabetic 31 gauge x #1,200 ea 09/17/23 09/17/23 History 5/16 (BD Ultra-Fine Short Pen Needle) rivaroxaban 20 mg tablet (Xarelto) 20 mg PO .COMPLEX 09/17/23 09/17/23 History triamcinolone acetonide 0.1 % 1 applic topical .COMPLEX PRN 09/17/23 09/17/23 History topical cream gabapentin 600 mg tablet See Rx Instructions .Route 10/04/23 Rx .COMPLEX #60 tabs baclofen 10 mg tablet See Rx Instructions .Route 10/16/23 Rx .COMPLEX #90 tabs hydroxychloroquine 200 mg tablet See Rx Instructions .Route 10/16/23 Rx .COMPLEX #60 tabs metformin 750 mg tablet,extended See Rx Instructions .Route 10/16/23 Rx release 24 hr .COMPLEX #30 tabs naproxen 375 mg tablet See Rx Instructions .Route 10/16/23 Rx .COMPLEX #60 tabs methocarbamol 500 mg tablet 500 mg PO BID #60 tabs 10/21/23 Rx methocarbamol 500 mg tablet See Rx Instructions .Route 10/21/23 Rx .COMPLEX #60 tabs New Prescriptions to Start Prescriptions: methocarbamol Rebekah Forbes Allergies Allergy/AdvReac Type Severity Reaction Status Date / Time empagliflozin AdvReac Mild Verified 09/17/23 08:51 [From Jardiance] dapagliflozin [From Farxiga] AdvReac Cramping Verified 09/17/23 08:50 of the Muscles Assessment and Plan *Assessment and plan (1) Lower back pain: Status: Acute Qualifiers: Chronicity: acute Back pain laterality: midline Sciatica presence: without sciatica Qualified Code(s): M54.50 - Low back pain, unspecified Category: Medical Code(s): M54.50 - Low back pain, unspecified (2) Lumbar degenerative disc disease: Status: Acute Category: Medical Code(s): M51.36 - Other intervertebral disc degeneration, lumbar region Plan I will send in refills of the methocarbamol 500 mg twice daily and provide a 3-month supply of this medication. Patient was counseled that she can cut 1 tablet in half to try it during the day and see if the lower dosage is more agreeable. Patient acknowledges understanding. I will also send a different version of the neuropathic pain cream. Patient will return to clinic in 3 months for reevaluation of symptoms and plan of care. Patient has been instructed to contact the clinic with any concerns before the next appointment. Dr. Rivera has reviewed this note and agrees with this plan of care. This note was dictated using voice recognition software and make contain errors or omissions. All injections are used with Lidocaine or Bupivacaine and Depo Medrol.
== END 2023-10-21 23:59 | disposition home or self-care (01) ==
PROVIDERS: PCP Nurse Practitioner Family; Visit Provider Nurse Practitioner Family
DX: M54.50 Low back pain, unspecified (principal); M51.36 Other intervertebral disc degeneration, lumbar region; Z79.899 Other long term (current) drug therapy
CPT/HCPCS: 99212; G0463

== ENCOUNTER 2023-11-01 09:49 | Outpatient (CLI) | payer BC, SELFPAY ==
[2023-11-01 13:47] LABS: Coronavirus 19, PCR Not Detected (NotDetected); Influenza A, PCR Not Detected (NotDetected); Influenza B, PCR Not Detected (NotDetected)
== END 2023-11-01 23:59 | disposition home or self-care (01) ==
LOC: LAB.DROPOF 11-04 09:49
PROVIDERS: PCP Nurse Practitioner Family; Visit Provider Nurse Practitioner Family
DX: J06.9 Acute upper respiratory infection, unspecified (principal); R06.02 Shortness of breath
CPT/HCPCS: 87636

== ENCOUNTER 2023-11-03 07:27 | Emergency (ER) | payer BC, SELFPAY ==
[2023-11-03 07:28] VITALS: BP 133/82; PULSE 85; RESP 18; TEMP 36.5; O2SAT 97; BMI 43.2
--- NOTE | 2023-11-03 07:30 | HMH.EDGENADL ---
Discharge Plan Disposition Patient Disposition: Home, Self-Care Condition: Good Prescriptions Prescriptions: New famotidine 20 mg tablet 20 mg PO BID 5 Days Qty: 10 0RF diphenhydramine HCl [Allergy (diphenhydramine)] 25 mg capsule 25 mg PO Q8H PRN (Reason: itching) Qty: 10 0RF No Action biotin 10,000 mcg capsule 10,000 mcg PO DAILY (DME) pen needle, diabetic [BD Ultra-Fine Short Pen Needle] 31 gauge x 5/16 needle See Rx Instructions .ROUTE .MEDSUPPLY Qty: 1200 Rx Instructions: TEST TID furosemide 40 mg tablet 40 mg PO DAILY PRN (Reason: Fluid) buspirone 10 mg tablet 10 mg PO .COMPLEX Rx Instructions: 10 mg orally BID; MAY CAUSE DROWSINESS; hydroxyzine HCl 25 mg tablet 25 mg PO .COMPLEX Rx Instructions: 25 mg orally Q8H PRN; MAY CAUSE DROWSINESS; omeprazole 20 mg capsule,delayed release(DR/EC) 20 mg PO BID ondansetron HCl 4 mg tablet 4 mg PO Q4-6H PRN (Reason: as needed) Xarelto 20 mg tablet 20 mg PO .COMPLEX Rx Instructions: 20 mg orally DAILY WITH FOOD; triamcinolone acetonide 0.1 % cream 1 applic topical .COMPLEX PRN (Reason: as needed) Rx Instructions: 1 applic topically TO AFFECTED AREA BID PRN; (DME) lancets [Accu-Chek Softclix Lancets] Misc See Rx Instructions .Route Rx Instructions: TEST TID (DME) blood-glucose meter [Accu-Chek Guide Glucose Meter] Misc See Rx Instructions .Route Rx Instructions: TEST TID (DME) Accu-Chek Guide test strips Strip See Rx Instructions .Route Rx Instructions: TEST TID magnesium chloride 64 mg magnesium tablet 400 mg PO DAILY coenzyme Q10 [Co Q-10] 200 mg capsule 200 mg PO DAILY psyllium Powder 1 tbsp PO DAILY Rx Instructions: mix into at least 8 oz of water or juice before administering cholecalciferol (vitamin D3) 10 mcg (400 unit) capsule 10 mcg PO DAILY baclofen 10 mg tablet 10 mg PO Q8H PRN gabapentin 600 mg tablet 600 mg PO BID hydroxychloroquine 200 mg tablet 200 mg PO BID amantadine HCl 100 mg tablet 100 mg PO .COMPLEX Rx Instructions: 100 mg orally compound cream; naproxen 375 mg tablet 375 mg PO Q12H PRN ondansetron 4 mg tablet,disintegrating 4 mg PO PRN Janumet 50-500 mg tablet 1 tab PO BID prednisone 20 mg tablet 20 mg PO BID 5 Days Qty: 10 0RF albuterol sulfate 90 mcg/actuation HFA aerosol inhaler 2 puff inhalation Q4-6H PRN (Reason: shortness of breath or wheezing) Qty: 6.7 0RF melatonin 10 mg capsule 10 mg PO HS PRN (Reason: sleep) Qty: 30 0RF insulin glargine [Basaglar KwikPen U-100 Insulin] 100 unit/mL (3 mL) insulin pen 14 unit SQ HS 30 Days Qty: 4.2 2RF carvedilol 25 mg tablet 25 mg PO BID Qty: 180 1RF Rx Instructions: must administer with a meal/food tramadol 50 mg tablet 50 mg PO Q6H PRN (Reason: PAIN) Qty: 120 0RF spironolactone 25 mg tablet 25 mg PO DAILY Qty: 90 1RF rosuvastatin 40 mg tablet 20 mg PO DAILY Qty: 90 3RF Entresto 49-51 mg tablet 1 tab PO BID Qty: 180 1RF metformin 750 mg tablet extended release 24 hr 1,500 mg .ROUTE .COMPLEX 30 Days Qty: 60 4RF Rx Instructions: 1,500 mg; amoxicillin-pot clavulanate 875-125 mg Tablet 1 tab PO Q12H Qty: 20 0RF fluticasone propionate [Flonase Allergy Relief] 50 mcg/actuation spray,suspension 2 spray intranasal DAILY Qty: 16 0RF Rx Instructions: administer into each nostril daily methocarbamol 500 mg tablet 500 mg PO BID Qty: 60 2RF Referrals Follow up/Referrals: Alena Reed APRN [Primary Care Provider] - See instructions Activity Restrictions/Add. Instructions Additional Instructions/Restrictions: As we discussed, it is possible that your swelling and rash on your chest are attributable to your recent steroids. I would recommend you discontinue those. You may also use Benadryl as needed for itching, please do not take this with your hydroxyzine. I recommend you take a medication called famotidine as well which can help with an itchy rash. Please return with any new or worsening symptoms. Clinical Impressions Clinical Impression: Facial swelling Print Language Print Language: Bulgarian Discharge ED Provider: Michael Mark General Adult HPI General Chief complaint: Allergic Reaction Stated complaint: poss allergic reaction, tight/scratchy throat Time Seen by Provider: 11/03/23 07:32 History of Present Illness HPI narrative: The patient presents with worsening symptoms since starting amoxicillin on Saturday, which was prescribed [facility]. She reports a sore throat since Saturday and a tightening sensation in the throat. She has been experiencing difficulty breathing and was prescribed an albuterol inhaler by her primary care physician on Saturday. The patient has no known history of issues with this type of medication. Today, she woke up with a puffy and red face, which has started to spread further. She also reports itchiness on her skin and a rash on her chest area. The patient denies any history of allergic reactions and has not experienced any fever. She has been on steroids for a few days, which were prescribed along with the antibiotics and inhaler. She has five more days of steroids left in her course of treatment. The patient mentions she has used an inhaler before, but it has been a while. She was trying to avoid coming to the hospital, but her aunt advised her to seek medical attention. The patient confirms she has been having trouble breathing. She also mentions that a rapid COVID test was performed during a recent visit. Please note that above description of symptoms, in this electronic medical record under categorization of recalled from ER triage doctor by RN are reflective of an initial nursing assessment, however, is not reflective of my full history and physical exam that was personally taken and clarified. Consequentially, this preceding description of symptoms, which may include the patient's categorized chief complaint in the EMR, do not reflect my personal clinical impression, and the ultimate description of history of present illness and patient stated complaints should be deferred to this section of the note. Unless stated otherwise or congruent with this section of the note, additional signs, symptoms, or incongruence should be interpreted as inaccurate with my clinical impression. Related Data Home Medications ?Medication ?Instructions ?Recorded ?Confirmed biotin 10,000 mcg capsule 10,000 mcg PO DAILY Supplement 03/15/17 11/01/23 magnesium chloride 64 mg 400 mg PO DAILY 10/26/22 11/01/23 (magnesium chloride) tablet coenzyme Q10 200 mg capsule (Co 200 mg PO DAILY 11/07/22 11/01/23 Q-10) cholecalciferol (vitamin D3) 10 10 mcg PO DAILY 05/15/23 11/01/23 mcg (400 unit) capsule psyllium 1 tbsp PO DAILY 05/15/23 11/01/23 blood sugar diagnostic (Accu-Chek 09/17/23 11/01/23 Guide test strips) blood-glucose meter (Accu-Chek 09/17/23 11/01/23 Guide Glucose Meter) buspirone 10 mg tablet 10 mg PO .COMPLEX 09/17/23 11/01/23 furosemide 40 mg tablet 40 mg PO DAILY PRN Fluid 09/17/23 11/01/23 hydroxyzine HCl 25 mg tablet 25 mg PO .COMPLEX 09/17/23 11/01/23 lancets (Accu-Chek Softclix 09/17/23 11/01/23 Lancets) omeprazole 20 mg capsule,delayed 20 mg PO BID 09/17/23 11/01/23 release ondansetron HCl 4 mg tablet 4 mg PO Q4-6H PRN as needed 09/17/23 11/01/23 pen needle, diabetic 31 gauge x #1,200 ea 09/17/23 11/01/23 5/16 (BD Ultra-Fine Short Pen Needle) rivaroxaban 20 mg tablet (Xarelto) 20 mg PO .COMPLEX 09/17/23 11/01/23 triamcinolone acetonide 0.1 % 1 applic topical .COMPLEX PRN as 09/17/23 11/01/23 topical cream needed amantadine HCl 100 mg tablet 100 mg PO .COMPLEX 11/01/23 11/01/23 baclofen 10 mg tablet 10 mg PO Q8H PRN 11/01/23 11/01/23 gabapentin 600 mg tablet 600 mg PO BID 11/01/23 11/01/23 hydroxychloroquine 200 mg tablet 200 mg PO BID 11/01/23 11/01/23 naproxen 375 mg tablet 375 mg PO Q12H PRN 11/01/23 11/01/23 ondansetron 4 mg disintegrating 4 mg PO PRN 11/01/23 11/01/23 tablet sitagliptin phosphate 50 1 tab PO BID 11/01/23 11/01/23 mg-metformin 500 mg tablet (Janumet) Previous Rx's ?Medication ?Instructions ?Recorded insulin glargine 100 unit/mL (3 14 unit (0.14 mL) SQ HS 30 days 03/06/23 mL) subcutaneous pen (Basaglar #4.2 mL KwikPen U-100 Insulin) carvedilol 25 mg tablet 25 mg PO BID #180 tabs 05/15/23 tramadol 50 mg tablet 50 mg PO Q6H PRN PAIN #120 tabs 06/04/23 spironolactone 25 mg tablet 25 mg PO DAILY Fluid #90 tabs 07/18/23 rosuvastatin 40 mg tablet 20 mg (1/2 x 40 mg) PO DAILY #90 08/16/23 tabs sacubitril 49 mg-valsartan 51 mg 1 tab PO BID #180 tabs 09/16/23 tablet (Entresto) methocarbamol 500 mg tablet 500 mg PO BID #60 tabs 10/21/23 amoxicillin 875 mg-potassium 1 tab PO Q12H #20 tabs 10/27/23 clavulanate 125 mg tablet fluticasone propionate 50 2 spray intranasal DAILY #16 grams 10/27/23 mcg/actuation nasal spray,suspension (Flonase Allergy Relief) metformin 750 mg tablet,extended 1,500 mg (2 x 750 mg) .Route 10/30/23 release 24 hr .COMPLEX 30 days #60 tabs albuterol sulfate 90 mcg/actuation 2 puff inhalation Q4-6H PRN 11/01/23 aerosol inhaler shortness of breath or wheezing #6.7 grams melatonin 10 mg capsule 10 mg PO HS PRN sleep #30 caps 11/01/23 prednisone 20 mg tablet 20 mg PO BID 5 days #10 tabs 11/01/23 diphenhydramine HCl 25 mg capsule 25 mg PO Q8H PRN itching #10 caps 11/03/23 (Allergy (diphenhydramine)) famotidine 20 mg tablet 20 mg PO BID 5 days #10 tabs 11/03/23 Allergies Allergy/AdvReac Type Severity Reaction Status Date / Time empagliflozin AdvReac Mild Verified 11/01/23 09:38 [From Jardiance] dapagliflozin [From Farxiga] AdvReac Cramping Verified 11/01/23 09:38 of the Muscles PFSH PFS Disclaimer: The information contained in this section may have been updated after the patient was seen, as this information can be updated by other users. 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 Anxiety and depression Cardiomyopathy CHF (congestive heart failure) Chronic systolic heart failure Diabetes mellitus Diastolic dysfunction Dyspnea Edema Epicondylitis History of pulmonary embolus (PE) Hyperlipidemia Hypertensive disorder Hypertensive heart disease Iron deficiency anemia Nonischemic cardiomyopathy Pacemaker Palpitations Post-tonsillectomy hemorrhage Pulmonary hypertension SOB (shortness of breath) Tenderness of chest wall Surgical History H/O removal of cyst leg H/O: hysterectomy History of appendectomy History of carpal tunnel release of both wrists History of cholecystectomy History of tonsillectomy Family History Other Family history of cancer Family history of diabetes mellitus Social History Smoking Status: Never smoker second hand exposure: No alcohol intake: never counseling provided: none substance use type: denies use current occupational status: other Travel in the last 8 weeks: None household members: spouse housing: house 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 ROS Obtained: Yes other As per HPI Physical Exam General General appearance: alert and in no apparent distress Head Head exam: atraumatic and normocephalic Eye Eye exam: Present normal appearance Neck Neck exam: Present normal inspection Chest Chest inspection: Present normal inspection and symmetric chest wall rise Respiratory Respiratory exam: Present normal lung sounds bilaterally; Absent respiratory distress Cardiovascular Cardiovascular exam: Present regular rate and normal rhythm Abdominal Exam Abdominal exam: Present soft Neurological Exam Neurological exam: Present alert and oriented X3 Psychiatric Psychiatric exam: Present normal affect and normal mood Skin Skin exam: Present warm and dry Other Other exam information: Erythematous rash on chest area, mild periorbital swelling, or pharyngeal erythema, no respiratory distress, no discrete wheals Medical Decision Making Medical Records Medical records reviewed: Yes I reviewed the patient's medical records. Robbie Inquiry Pt receiving controlled substance: No Vital Signs: 11/03/23 07:28 11/03/23 08:15 11/03/23 08:40 Temperature 97.7 F 98.2 F Temperature Source Oral Pulse Rate 84 76 Pulse Rate [Right] 85 Respiratory Rate 18 18 Blood Pressure 118/77 118/76 Blood Pressure [Right Arm] 133/82 Blood Pressure Mean [Right Arm] 99 02 Sat by Pulse Oximetry 97 96 Oxygen Delivery Method Room Air Room Air Room Air Orders (Tests/Meds): ED MEDICATIONS Discontinued Medications Generic Name Dose Route Start Last Admin Trade Name Mariola PRN Reason Stop Dose Admin Acetaminophen 1,000 mg 11/03/23 08:00 11/03/23 08:00 Acetaminophen 500mg Tab PO 11/03/23 08:01 1,000 mg ONCE ONE Administration Diphenhydramine HCl 25 mg 11/03/23 07:44 11/03/23 07:48 Diphenhydramine 25mg Capsule PO 11/03/23 07:45 25 mg ONCE ONE Administration Famotidine 20 mg 11/03/23 07:44 11/03/23 07:48 Famotidine 20mg Tablet PO 11/03/23 07:45 20 mg ONCE ONE Administration Miscellaneous 1 unit 11/03/23 07:51 11/03/23 07:54 Aerochamber/Optihaler 11/03/23 07:52 1 unit ONCE ONE Administration Medical Decision Narrative: Patient with history and exam per above presenting for evaluation of reported facial swelling, rash on chest. Diagnoses considered include side effect of recent initiation of corticosteroid, allergic reaction, no clinical evidence at this time to suggest angioedema, differential diagnosis also includes ongoing upper respiratory infection. ED workup and treatment included: ED MEDICATIONS Discontinued Medications Generic Name Dose Route Start Last Admin Trade Name Mariola PRN Reason Stop Dose Admin Acetaminophen 1,000 mg 11/03/23 08:00 11/03/23 08:00 Acetaminophen 500mg Tab PO 11/03/23 08:01 1,000 mg ONCE ONE Administration Diphenhydramine HCl 25 mg 11/03/23 07:44 11/03/23 07:48 Diphenhydramine 25mg Capsule PO 11/03/23 07:45 25 mg ONCE ONE Administration Famotidine 20 mg 11/03/23 07:44 11/03/23 07:48 Famotidine 20mg Tablet PO 11/03/23 07:45 20 mg ONCE ONE Administration Miscellaneous 1 unit 11/03/23 07:51 11/03/23 07:54 Aerochamber/Optihaler MC 11/03/23 07:52 1 unit ONCE ONE Administration My clinical impression at this time is most consistent with likely adverse reaction from steroids in the setting of multiple comorbidities. Low likelihood of allergic reaction however will treat pruritus symptomatically. Patient was additionally provided instructions on proper inhaler usage and provided spacer. Throat symptoms may be attributable to improper use of albuterol inhaler. I discussed my clinical impression with patient and answered all questions. At this time, the evidence for any other entities in the differential is insufficient to warrant any further testing or ED observation. This was explained to the patient. The patient was advised that persistent or worsening symptoms require further evaluation. Critical Care Critical Care Time Critical Care Time: No
--- NOTE | 2023-11-03 07:40 | PC.NURSE ---
Dr. Mark at bedside for pt eval
[2023-11-03] MEDS: diphenhydrAMINE 25MG CAPSULE 25 MG PO (07:48)
[2023-11-03] MEDS: FAMOTIDINE 20MG TABLET 20 MG PO (07:48)
[2023-11-03] MEDS: AEROCHAMBER/OPTIHALER 1 UNIT MC (07:54)
[2023-11-03] MEDS: ACETAMINOPHEN 500MG TAB 1000 MG PO (08:00)
--- NOTE | 2023-11-03 08:03 | PC.NURSE ---
Gave pt teaching with aero-chamber for inhaler. Pt now c/o headache on top her head which is new. Dr. Mark notified of this, tylenol ordered.
[2023-11-03 08:15] VITALS: BP 118/77; PULSE 84; O2SAT 96
[2023-11-03 08:40] VITALS: BP 118/76; PULSE 76; RESP 18; TEMP 36.8; O2SAT 96
== END 2023-11-03 08:44 | disposition home or self-care (01) ==
PROVIDERS: Emergency Provider Emergency Medicine; PCP Nurse Practitioner Family
DX: R22.0 Localized swelling, mass and lump, head (principal); I11.0 Hypertensive heart disease with heart failure; I50.22 Chronic systolic (congestive) heart failure; I42.9 Cardiomyopathy, unspecified; E78.5 Hyperlipidemia, unspecified; I27.20 Pulmonary hypertension, unspecified; T38.0X5A Adverse effect of glucocorticoids and synthetic analogues, initial encounter; R21 Rash and other nonspecific skin eruption
CPT/HCPCS: 99283

== ENCOUNTER 2023-11-04 10:44 | Outpatient (CLI) | payer BC, SELFPAY ==
--- NOTE | 2023-11-04 11:04 | XR_ITS ---
FINAL REPORT CLINICAL HISTORY: Shortness of breath, cough COMPARISON: 03/29/2023 FINDINGS: Two views of the chest were obtained. A left subclavian ICD is noted. The heart size and pulmonary vascularity are within normal limits. The mediastinum is normal. No acute pulmonary abnormality is identified. There is no pneumothorax. The bony thorax is intact. IMPRESSION: No active cardiopulmonary disease. Reviewed, Interpreted and Dictated by Phoenix Chris III, MD Transcribed by Bridget Vasquez Authenticated and . [facility]
[2023-11-04 13:21] LABS: Adenovirus,PCR Not Detected (NotDetected); Bordetella Pertussis Not Detected (NotDetected); Chlamydophila Pneumoniae, PCR Not Detected (NotDetected); Coronavirus 19, PCR Not Detected (NotDetected); Coronavirus 229E Not Detected (NotDetected); Coronavirus NL63 Not Detected (NotDetected); Coronavirus OC43 Not Detected (NotDetected); Coronovirus HKU1,PCR Not Detected (NotDetected); Human Metapneumovirus Not Detected (NotDetected); Influenza A, PCR Not Detected (NotDetected); Influenza AH1, 2009 Not Detected (NotDetected); Influenza AH1, PCR Not Detected (NotDetected); Influenza AH3,PCR Not Detected (NotDetected); Influenza B, PCR Not Detected (NotDetected); Mycoplasma Pneumoniae, PCR Not Detected (NotDetected); Parainfluenza 1, PCR Not Detected (NotDetected); Parainfluenza 2, PCR Not Detected (NotDetected); Parainfluenza 3, PCR Not Detected (NotDetected); Parainfluenza 4, PCR Not Detected (NotDetected); Respiratory Syncytial Virus Not Detected (NotDetected)
[2023-11-06 12:34] LABS: Rhinovirus/Enterovirus Detected (NotDetected)
== END 2023-11-04 23:59 | disposition home or self-care (01) ==
LOC: RAD 10:45
PROVIDERS: PCP Nurse Practitioner Family; Visit Provider Nurse Practitioner Family
DX: R05.1 Acute cough (principal); R50.9 Fever, unspecified
CPT/HCPCS: 71046; 87265; 87486; 87581; 87632; 87635

== ENCOUNTER 2023-11-09 13:59 | Emergency (ER) | payer BC, SELFPAY ==
[2023-11-09 14:30] VITALS: BP 107/67; PULSE 93; RESP 20; TEMP 36.8; O2SAT 96; BMI 43.8
--- NOTE | 2023-11-09 14:50 | EXP.UTC ---
Discharge Plan Disposition Patient Disposition: Home, Self-Care Condition: Good Prescriptions Prescriptions: New cephalexin 500 mg tablet 500 mg PO BID 7 Days Qty: 14 0RF No Action biotin 10,000 mcg capsule 10,000 mcg PO DAILY (DME) pen needle, diabetic [BD Ultra-Fine Short Pen Needle] 31 gauge x 5/16 needle See Rx Instructions .ROUTE .MEDSUPPLY Qty: 1200 Rx Instructions: TEST TID furosemide 40 mg tablet 40 mg PO DAILY PRN (Reason: Fluid) buspirone 10 mg tablet 10 mg PO .COMPLEX Rx Instructions: 10 mg orally BID; MAY CAUSE DROWSINESS; hydroxyzine HCl 25 mg tablet 25 mg PO .COMPLEX Rx Instructions: 25 mg orally Q8H PRN; MAY CAUSE DROWSINESS; omeprazole 20 mg capsule,delayed release(DR/EC) 20 mg PO BID ondansetron HCl 4 mg tablet 4 mg PO Q4-6H PRN (Reason: as needed) Xarelto 20 mg tablet 20 mg PO .COMPLEX Rx Instructions: 20 mg orally DAILY WITH FOOD; triamcinolone acetonide 0.1 % cream 1 applic topical .COMPLEX PRN (Reason: as needed) Rx Instructions: 1 applic topically TO AFFECTED AREA BID PRN; (DME) lancets [Accu-Chek Softclix Lancets] Misc See Rx Instructions .Route Rx Instructions: TEST TID (DME) blood-glucose meter [Accu-Chek Guide Glucose Meter] Misc See Rx Instructions .Route Rx Instructions: TEST TID (DME) Accu-Chek Guide test strips Strip See Rx Instructions .Route Rx Instructions: TEST TID famotidine 40 mg tablet 40 mg PO BID 14 Days Qty: 28 0RF gabapentin 600 mg tablet See Rx Instructions .ROUTE .COMPLEX Qty: 60 0RF Dose Instruction: TAKE 1 TABLET BY MOUTH TWICE DAILY MAY CAUSE DROWSINESS Rx Instructions: TAKE 1 TABLET BY MOUTH TWICE DAILY MAY CAUSE DROWSINESS magnesium chloride 64 mg magnesium tablet 400 mg PO DAILY coenzyme Q10 [Co Q-10] 200 mg capsule 200 mg PO DAILY psyllium Powder 1 tbsp PO DAILY Rx Instructions: mix into at least 8 oz of water or juice before administering cholecalciferol (vitamin D3) 10 mcg (400 unit) capsule 10 mcg PO DAILY baclofen 10 mg tablet 10 mg PO Q8H PRN hydroxychloroquine 200 mg tablet 200 mg PO BID amantadine HCl 100 mg tablet 100 mg PO .COMPLEX Rx Instructions: 100 mg orally compound cream; naproxen 375 mg tablet 375 mg PO Q12H PRN ondansetron 4 mg tablet,disintegrating 4 mg PO PRN Janumet 50-500 mg tablet 1 tab PO BID albuterol sulfate 90 mcg/actuation HFA aerosol inhaler 2 puff inhalation Q4-6H PRN (Reason: shortness of breath or wheezing) Qty: 6.7 0RF melatonin 10 mg capsule 10 mg PO HS PRN (Reason: sleep) Qty: 30 0RF insulin glargine [Basaglar KwikPen U-100 Insulin] 100 unit/mL (3 mL) insulin pen 14 unit SQ HS 30 Days Qty: 4.2 2RF carvedilol 25 mg tablet 25 mg PO BID Qty: 180 1RF Rx Instructions: must administer with a meal/food spironolactone 25 mg tablet 25 mg PO DAILY Qty: 90 1RF rosuvastatin 40 mg tablet 20 mg PO DAILY Qty: 90 3RF Entresto 49-51 mg tablet 1 tab PO BID Qty: 180 1RF metformin 750 mg tablet extended release 24 hr 1,500 mg .ROUTE .COMPLEX 30 Days Qty: 60 4RF Rx Instructions: 1,500 mg; tramadol 50 mg tablet 50 mg PO Q6H PRN (Reason: PAIN) Qty: 120 0RF amoxicillin-pot clavulanate 875-125 mg Tablet 1 tab PO Q12H Qty: 20 0RF fluticasone propionate [Flonase Allergy Relief] 50 mcg/actuation spray,suspension 2 spray intranasal DAILY Qty: 16 0RF Rx Instructions: administer into each nostril daily diphenhydramine HCl [Allergy (diphenhydramine)] 25 mg capsule 25 mg PO Q8H PRN (Reason: itching) Qty: 10 0RF methocarbamol 500 mg tablet 500 mg PO BID Qty: 60 2RF Referrals Follow up/Referrals: Alena Reed APRN [Primary Care Provider] - See instructions Activity Restrictions/Add. Instructions Additional Instructions/Restrictions: Increase fluids, water and not soda or tea. Can drink cranberry juice or cranberry extract. Wipe front to back Wear cotton underwear Empty bladder after intercourse Start antibiotics immediately and make sure you take the full course although you may start to see improvement over the next 48 hours. You can eat yogurt or take probiotics to decrease diarrhea or yeast infection caused by the antibiotic Be sure to follow-up anytime for new or worsening symptoms in 48 hours for wound urine culture results be sure to let you PCP no recent urine for culture so they can request records and ensure that you have appropriate antibiotic if you are not getting better or getting worse. If symptoms worsen or do not improve return or be seen in the ER. Follow-up with primary care this week. Clinical Impressions Clinical Impression: UTI (urinary tract infection) Instructions Patient Instructions: DI for Urinary Tract Infection (UTI) Print Language Print Language: Surinamese Discharge ED Provider: Roger ([facility] [place] General Stated complaint: possible uti Mode of Arrival: Ambulatory Source of Information: Patient Time Seen by Provider: 11/09/23 14:32 GI/ Symptoms (Recalled from RN notes): Yes History of Present Illness Provider Complaint: 43-year-old female presents for frequency, urgency, burning with urination for 2 days. Related Data Home Medications ?Medication ?Instructions ?Recorded ?Confirmed biotin 10,000 mcg capsule 10,000 mcg PO DAILY Supplement 03/15/17 11/07/23 magnesium chloride 64 mg 400 mg PO DAILY 10/26/22 11/07/23 (magnesium chloride) tablet coenzyme Q10 200 mg capsule (Co 200 mg PO DAILY 11/07/22 11/07/23 Q-10) cholecalciferol (vitamin D3) 10 10 mcg PO DAILY 05/15/23 11/07/23 mcg (400 unit) capsule psyllium 1 tbsp PO DAILY 05/15/23 11/07/23 blood sugar diagnostic (Accu-Chek 09/17/23 11/07/23 Guide test strips) blood-glucose meter (Accu-Chek 09/17/23 11/07/23 Guide Glucose Meter) buspirone 10 mg tablet 10 mg PO .COMPLEX 09/17/23 11/07/23 furosemide 40 mg tablet 40 mg PO DAILY PRN Fluid 09/17/23 11/07/23 hydroxyzine HCl 25 mg tablet 25 mg PO .COMPLEX 09/17/23 11/07/23 lancets (Accu-Chek Softclix 09/17/23 11/07/23 Lancets) omeprazole 20 mg capsule,delayed 20 mg PO BID 09/17/23 11/07/23 release ondansetron HCl 4 mg tablet 4 mg PO Q4-6H PRN as needed 09/17/23 11/07/23 pen needle, diabetic 31 gauge x #1,200 ea 09/17/23 11/07/23 5/16 (BD Ultra-Fine Short Pen Needle) rivaroxaban 20 mg tablet (Xarelto) 20 mg PO .COMPLEX 09/17/23 11/07/23 triamcinolone acetonide 0.1 % 1 applic topical .COMPLEX PRN as 09/17/23 11/07/23 topical cream needed amantadine HCl 100 mg tablet 100 mg PO .COMPLEX 11/01/23 11/07/23 baclofen 10 mg tablet 10 mg PO Q8H PRN 11/01/23 11/07/23 hydroxychloroquine 200 mg tablet 200 mg PO BID 11/01/23 11/07/23 naproxen 375 mg tablet 375 mg PO Q12H PRN 11/01/23 11/07/23 ondansetron 4 mg disintegrating 4 mg PO PRN 11/01/23 11/07/23 tablet sitagliptin phosphate 50 1 tab PO BID 11/01/23 11/07/23 mg-metformin 500 mg tablet (Myrtlet) Previous Rx's ?Medication ?Instructions ?Recorded insulin glargine 100 unit/mL (3 14 unit (0.14 mL) SQ HS 30 days 03/06/23 mL) subcutaneous pen (Basaglar #4.2 mL KwikPen U-100 Insulin) carvedilol 25 mg tablet 25 mg PO BID #180 tabs 05/15/23 spironolactone 25 mg tablet 25 mg PO DAILY Fluid #90 tabs 07/18/23 rosuvastatin 40 mg tablet 20 mg (1/2 x 40 mg) PO DAILY #90 08/16/23 tabs sacubitril 49 mg-valsartan 51 mg 1 tab PO BID #180 tabs 09/16/23 tablet (Entresto) methocarbamol 500 mg tablet 500 mg PO BID #60 tabs 10/21/23 amoxicillin 875 mg-potassium 1 tab PO Q12H #20 tabs 10/27/23 clavulanate 125 mg tablet fluticasone propionate 50 2 spray intranasal DAILY #16 grams 10/27/23 mcg/actuation nasal spray,suspension (Flonase Allergy Relief) metformin 750 mg tablet,extended 1,500 mg (2 x 750 mg) .Route 10/30/23 release 24 hr .COMPLEX 30 days #60 tabs albuterol sulfate 90 mcg/actuation 2 puff inhalation Q4-6H PRN 11/01/23 aerosol inhaler shortness of breath or wheezing #6.7 grams melatonin 10 mg capsule 10 mg PO HS PRN sleep #30 caps 11/01/23 diphenhydramine HCl 25 mg capsule 25 mg PO Q8H PRN itching #10 caps 11/03/23 (Allergy (diphenhydramine)) famotidine 40 mg tablet 40 mg PO BID 14 days #28 tabs 11/04/23 gabapentin 600 mg tablet See Rx Instructions .Route 11/04/23 .COMPLEX #60 tabs tramadol 50 mg tablet 50 mg PO Q6H PRN PAIN #120 tabs 11/04/23 cephalexin 500 mg tablet 500 mg PO BID 7 days #14 tabs 11/09/23 Allergies Allergy/AdvReac Type Severity Reaction Status Date / Time prednisone Allergy Unknown Verified 11/09/23 14:52 allergy reaction empagliflozin AdvReac Mild Unknown Verified 11/09/23 14:52 [From Jardiance] allergy reaction dapagliflozin [From Farxiga] AdvReac Cramping Verified 11/07/23 08:31 of the Muscles PFSH [facility] Disclaimer: The information contained in this section may have been updated after the patient was seen, as this information can be updated by other users. 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) History of cholecystectomy H/O removal of cyst History of tonsillectomy History of carpal tunnel release of both wrists H/O: hysterectomy History of appendectomy Family History Other Family history of cancer Family history of diabetes mellitus Social History Smoking Status: Never smoker second hand exposure: No alcohol intake: never counseling provided: none substance use type: denies use current occupational status: other Travel in the last 8 weeks: None household members: spouse housing: house 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 ROS Obtained: Yes Systems reviewed as appropriate & no additional complaints except as documented Physical Exam General General appearance: alert and in no apparent distress Eye Eye exam: Present normal appearance ENT ENT exam: Present normal exam Respiratory Respiratory exam: Present normal lung sounds bilaterally Cardiovascular Cardiovascular exam: Present regular rate and normal rhythm Abdominal Exam Abdominal exam: Present soft and normal bowel sounds; Absent tenderness or guarding Neurological Exam Neurological exam: Present alert and oriented X3 Skin Skin exam: Present warm and intact Medical Decision Making Medical Records Medical records reviewed: Yes I reviewed the patient's medical records. Robbie Inquiry Pt receiving controlled substance: No Robbie was queried for this patient: No Lab Data Lab results reviewed: Yes I reviewed the patient's lab results. Orders (Tests/Meds): ORDERS Category Date Time Status Urine Culture Stat Micro 11/09/23 14:15 Received
[2023-11-09 14:55] LABS: Apearance,Urine Clear (Clear); Color,Urine Yellow (Yellow); Glucose,Urine (UA) Negative (Negative); Ketones,Urine Negative (Negative); Protein,Urine Negative (Negative)
[2023-11-09 14:56] LABS: Bilirubin,Urine Negative (Negative); Blood, Urine Trace (Negative); UTC Leukocyte Esterase,Urine Negative (Negative); UTC Nitrate,Urine Negative (Negative); Urobilinogen,Urine 1 EU/dl (0.2)
[2023-11-09 15:10] VITALS: BP 107/67; PULSE 93; RESP 20; TEMP 36.8; O2SAT 96
== END 2023-11-09 15:15 | disposition home or self-care (01) ==
PROVIDERS: Emergency Provider Nurse Practitioner Family; PCP Nurse Practitioner Family
DX: N39.0 Urinary tract infection, site not specified (principal); B95.2 Enterococcus as the cause of diseases classified elsewhere; R30.0 Dysuria; R35.0 Frequency of micturition
CPT/HCPCS: 81003; 87086; 87088; 87186; 99212; 99214; G0463

== ENCOUNTER 2023-11-18 08:40 | Outpatient (CLI) | payer BC, SELFPAY ==
--- NOTE | 2023-11-18 08:55 | CA_ITS ---
APPROVED REPORT EXAM: Comprehensive 2D, Doppler, and color-flow Echocardiogram Senior Maintenance Machinist: Windy Esteban, RT(R) Ht: 5 ft 3 in Wt: 243lbs BSA: 2.10 BP: 116/73 mmHg Indications: dyspnea, EF 30% 2021, palpitations, edema, DM, SOB, CM, anxiety, dual chamber ICD, anemia, HFrEF. Echo Enhancing Agent Indication: Endocardial border delineation Agent(s) / Amount(s) Used: Definity 2 cc 2D Dimensions Left Atrium 3.01 cm F: 2.7 - 3.8 LA Volume 42.90 mL LVOT 2.00 cm (M/F) 1.5-2.5 LA Volume Index 20.43 mL/m2 (M/F) 16-34 EF AP4 22.40 % GL Strain -11.7 % M-Mode Dimensions RVDd 2.41 cm (0.9-2.6) LVDd 5.87 cm (3.5-5.7) Ao Diam 2.86 cm (2.0-3.7) LVDs 4.76 cm (3.5-5.7) IVSd 0.74 cm (0.6-1.1) PWd 1.18 cm (0.6-1.1) EF (Teich) 38.40% FS 18.90% EDV (Teich) 171.20 mL ESV (Teich) 105.40 mL LV Diastology E Decel Time 150 (160-240 msec) E/A Ratio 0.8 Mitral Valve MV E Max Caio. 71.0 (40-130 cm/s) MV A Velocity 84.0 (40-130 cm/s) E/A Ratio 0.85 MV Decel. Time 150 (160-240 ms) Tricuspid Valve TR P. Velocity 314.00 cm/s RAP Estimate 10.00 mmHg RVSP 49.50 mmHg Left Ventricle The left ventricle is normal size. A small apical aneurysm is present. LVEF is 30%. Left ventricular systolic function is moderate to severely decreased. There is normal left ventricular wall thickness. The LV apex is akinetic. There is moderate to severe global hypokinesis present. The septum is asynchronous. Grade 1 diastolic dysfunction is present. Right Ventricle The right ventricle is normal size. The right ventricular systolic function is normal. A device lead is present in the right ventricle. Atria The left atrium size is normal. The right atrium size is normal. There is no Doppler evidence of interatrial shunt. Aortic Valve Aortic valve grossly opens well. There is no aortic valvular stenosis. No aortic regurgitation is present. Mitral Valve The mitral valve is normal in structure. No evidence of mitral valve stenosis. Trace mitral regurgitation. Tricuspid Valve The tricuspid valve leaflets are thin and pliable. Trace tricuspid regurgitation. There is insufficient TR jet to estimate RVSP. Pulmonic Valve The pulmonary valve is normal in structure. Trace pulmonic regurgitation. Great Vessels The aortic root is normal in size. The ascending aorta is normal in size. IVC is normal in size and collapses >50% with inspiration. Pericardium There is no pericardial effusion. Other Information Study Quality: Technically Difficult Conclusion Technically difficult study due to poor acoustic windows. Moderate to severe reduction in LV systolic function (LVEF 30%). Small apical aneurysm is present. The LV apex is akinetic. There is moderate to severe global hypokinesis present. The septum is asynchronous. No significant valvular stenosis or regurgitation. In the setting of non-ischemic cardiomyopathy, further evaluation with cardiac MRI (cardiomyopathy protocol) is recommended. Of note, the patient has dual-chamber ICD in place. Electronically signed by : Gail Mike MD 11/18/2023 12:27:55
[2023-11-18] MEDS: DEFINITY US ECHO CONTRAST 2ML INJ 2 MG IV (10:14)
== END 2023-11-18 23:59 | disposition home or self-care (01) ==
LOC: RT 08:40
PROVIDERS: PCP Nurse Practitioner Family; Visit Provider Nurse Practitioner Family
DX: R06.02 Shortness of breath (principal)
CPT/HCPCS: 93306; Q9957

== ENCOUNTER 2023-12-03 09:35 | Emergency (ER) | payer BC, SELFPAY ==
[2023-12-03 09:51] VITALS: BP 90/58; PULSE 81; RESP 16; TEMP 36.6; O2SAT 97; BMI 42.5
--- NOTE | 2023-12-03 09:59 | EXP.UTC ---
Discharge Plan Disposition Patient Disposition: Home, Self-Care Condition: Good Prescriptions Prescriptions: New lidocaine 5 % adhesive patch,medicated 1 patch topical DAILY PRN (Reason: pain) Qty: 15 0RF Rx Instructions: leave on most painful area for up to 12 hrs then remove for 12 hours No Action biotin 10,000 mcg capsule 10,000 mcg PO DAILY (DME) pen needle, diabetic [BD Ultra-Fine Short Pen Needle] 31 gauge x 5/16 needle See Rx Instructions .ROUTE .MEDSUPPLY Qty: 1200 Rx Instructions: TEST TID furosemide 40 mg tablet 40 mg PO DAILY PRN (Reason: Fluid) buspirone 10 mg tablet 10 mg PO .COMPLEX Rx Instructions: 10 mg orally BID; MAY CAUSE DROWSINESS; hydroxyzine HCl 25 mg tablet 25 mg PO .COMPLEX Rx Instructions: 25 mg orally Q8H PRN; MAY CAUSE DROWSINESS; ondansetron HCl 4 mg tablet 4 mg PO Q4-6H PRN (Reason: as needed) triamcinolone acetonide 0.1 % cream 1 applic topical .COMPLEX PRN (Reason: as needed) Rx Instructions: 1 applic topically TO AFFECTED AREA BID PRN; (DME) lancets [Accu-Chek Softclix Lancets] Misc See Rx Instructions .Route Rx Instructions: TEST TID (DME) blood-glucose meter [Accu-Chek Guide Glucose Meter] Misc See Rx Instructions .Route Rx Instructions: TEST TID (DME) Accu-Chek Guide test strips Strip See Rx Instructions .Route Rx Instructions: TEST TID famotidine 40 mg tablet 40 mg PO BID 14 Days Qty: 28 0RF gabapentin 600 mg tablet See Rx Instructions .ROUTE .COMPLEX Qty: 60 0RF Dose Instruction: TAKE 1 TABLET BY MOUTH TWICE DAILY MAY CAUSE DROWSINESS Rx Instructions: TAKE 1 TABLET BY MOUTH TWICE DAILY MAY CAUSE DROWSINESS magnesium chloride 64 mg magnesium tablet 400 mg PO DAILY coenzyme Q10 [Co Q-10] 200 mg capsule 200 mg PO DAILY psyllium Powder 1 tbsp PO DAILY Rx Instructions: mix into at least 8 oz of water or juice before administering cholecalciferol (vitamin D3) 10 mcg (400 unit) capsule 10 mcg PO DAILY baclofen 10 mg tablet 10 mg PO Q8H PRN amantadine HCl 100 mg tablet 100 mg PO .COMPLEX Rx Instructions: 100 mg orally compound cream; ondansetron 4 mg tablet,disintegrating 4 mg PO PRN albuterol sulfate 90 mcg/actuation HFA aerosol inhaler 2 puff inhalation Q4-6H PRN (Reason: shortness of breath or wheezing) Qty: 6.7 0RF melatonin 10 mg capsule 10 mg PO HS PRN (Reason: sleep) Qty: 30 0RF insulin glargine [Basaglar KwikPen U-100 Insulin] 100 unit/mL (3 mL) insulin pen 14 unit SQ HS 30 Days Qty: 4.2 2RF spironolactone 25 mg tablet 25 mg PO DAILY Qty: 90 1RF rosuvastatin 40 mg tablet 20 mg PO DAILY Qty: 90 3RF Entresto 49-51 mg tablet 1 tab PO BID Qty: 180 1RF metformin 750 mg tablet extended release 24 hr 1,500 mg .ROUTE .COMPLEX 30 Days Qty: 60 4RF Rx Instructions: 1,500 mg; tramadol 50 mg tablet 50 mg PO Q6H PRN (Reason: PAIN) Qty: 120 0RF carvedilol 25 mg tablet See Rx Instructions .ROUTE .COMPLEX Qty: 180 3RF Dose Instruction: TAKE 1 TABLET BY MOUTH TWICE DAILY ; MUST ADMINISTER WITH A MEAL/FOOD Rx Instructions: TAKE 1 TABLET BY MOUTH TWICE DAILY ; MUST ADMINISTER WITH A MEAL/FOOD Xarelto 20 mg tablet See Rx Instructions .ROUTE .COMPLEX Qty: 30 3RF Dose Instruction: TAKE 1 TABLET BY MOUTH ONCE DAILY WITH FOOD Rx Instructions: TAKE 1 TABLET BY MOUTH ONCE DAILY WITH FOOD omeprazole 20 mg capsule,delayed release(DR/EC) See Rx Instructions .ROUTE .COMPLEX Qty: 180 0RF Dose Instruction: TAKE 1 CAPSULE BY MOUTH TWICE DAILY Rx Instructions: TAKE 1 CAPSULE BY MOUTH TWICE DAILY naproxen 375 mg tablet See Rx Instructions .ROUTE .COMPLEX Qty: 60 0RF Dose Instruction: TAKE 1 TABLET BY MOUTH EVERY 12 HOURS NEEDED TAKE WITH FOOD OR MILK Rx Instructions: TAKE 1 TABLET BY MOUTH EVERY 12 HOURS NEEDED TAKE WITH FOOD OR MILK hydroxychloroquine 200 mg tablet See Rx Instructions .ROUTE .COMPLEX Qty: 60 0RF Dose Instruction: TAKE 1 TABLET BY MOUTH TWICE DAILY FOR LUPUS Rx Instructions: TAKE 1 TABLET BY MOUTH TWICE DAILY FOR LUPUS Janumet 50-500 mg tablet See Rx Instructions .ROUTE .COMPLEX Qty: 60 0RF Dose Instruction: TAKE 1 TABLET BY MOUTH TWICE DAILY Rx Instructions: TAKE 1 TABLET BY MOUTH TWICE DAILY amoxicillin-pot clavulanate 875-125 mg Tablet 1 tab PO Q12H Qty: 20 0RF fluticasone propionate [Flonase Allergy Relief] 50 mcg/actuation spray,suspension 2 spray intranasal DAILY Qty: 16 0RF Rx Instructions: administer into each nostril daily diphenhydramine HCl [Allergy (diphenhydramine)] 25 mg capsule 25 mg PO Q8H PRN (Reason: itching) Qty: 10 0RF methocarbamol 500 mg tablet 500 mg PO BID Qty: 60 2RF cephalexin 500 mg tablet 500 mg PO BID 7 Days Qty: 14 0RF Referrals Follow up/Referrals: Alena Reed APRN [Primary Care Provider] - See instructions Activity Restrictions/Add. Instructions Additional Instructions/Restrictions: Continue your home medications and muscle relaxers/pain medication as prescribed May use Tylenol in between doses if your Family Doctor and pain management has said it is ok Use topical lidocaine patches as they was prescribed Follow up with Pain Management call office and make appointment Use moist heat to area but do not sleep with heating pad on this may cause roman Clinical Impressions Clinical Impression: Muscle spasm of back Instructions Patient Instructions: DI for Muscle Spasm, Lidocaine Transdermal Patch Print Language Print Language: Martiniquais Discharge ED Provider: Renetta Rock [facility] General Stated complaint: back pain Mode of Arrival: Ambulatory Source of Information: Patient Limitations: No Limitations Time Seen by Provider: 12/03/23 09:59 Description of Symptoms (Recalled from Triage Doc. by RN): Patient reports right sided back pain since Saturday. States she has taken robaxin, naproxen and tramadol with no relief of her pain. HEENT Symptoms (Recalled from RN notes): No Resp Symptoms (Recalled from RN notes): No Skin Symptoms (Recalled from RN notes): No MS Symptoms (Recalled from RN notes): Yes Functional Status (Recalled from RN notes): wnl History of Present Illness Provider Complaint: Patient states that she was bent over sitting on her porch scraping off the wood and when she woke up the next day she was having spasms in her right lower back area States she has a bad back and she has been taking her methocarbamol and her naproxen but it wasnt helping so she took one of her Tramadol last night and this morning she got up around 4 am and took a Naproxen but her back is still bothering her so she came in to see if she could get something else to help with the pain Denies urinary symptoms and denies loss of control of bowel or bladder Related Data Home Medications ?Medication ?Instructions ?Recorded ?Confirmed biotin 10,000 mcg capsule 10,000 mcg PO DAILY Supplement 03/15/17 11/07/23 magnesium chloride 64 mg 400 mg PO DAILY 10/26/22 11/07/23 (magnesium chloride) tablet coenzyme Q10 200 mg capsule (Co 200 mg PO DAILY 11/07/22 11/07/23 Q-10) cholecalciferol (vitamin D3) 10 10 mcg PO DAILY 05/15/23 11/07/23 mcg (400 unit) capsule psyllium 1 tbsp PO DAILY 05/15/23 11/07/23 blood sugar diagnostic (Accu-Chek 09/17/23 11/07/23 Guide test strips) blood-glucose meter (Accu-Chek 09/17/23 11/07/23 Guide Glucose Meter) buspirone 10 mg tablet 10 mg PO .COMPLEX 09/17/23 11/07/23 furosemide 40 mg tablet 40 mg PO DAILY PRN Fluid 09/17/23 11/07/23 hydroxyzine HCl 25 mg tablet 25 mg PO .COMPLEX 09/17/23 11/07/23 lancets (Accu-Chek Softclix 09/17/23 11/07/23 Lancets) ondansetron HCl 4 mg tablet 4 mg PO Q4-6H PRN as needed 09/17/23 11/07/23 pen needle, diabetic 31 gauge x #1,200 ea 09/17/23 11/07/23 5/16 (BD Ultra-Fine Short Pen Needle) triamcinolone acetonide 0.1 % 1 applic topical .COMPLEX PRN as 09/17/23 11/07/23 topical cream needed amantadine HCl 100 mg tablet 100 mg PO .COMPLEX 11/01/23 11/07/23 baclofen 10 mg tablet 10 mg PO Q8H PRN 11/01/23 11/07/23 ondansetron 4 mg disintegrating 4 mg PO PRN 11/01/23 11/07/23 tablet Previous Rx's ?Medication ?Instructions ?Recorded insulin glargine 100 unit/mL (3 14 unit (0.14 mL) SQ HS 30 days 03/06/23 mL) subcutaneous pen (Basaglar #4.2 mL KwikPen U-100 Insulin) spironolactone 25 mg tablet 25 mg PO DAILY Fluid #90 tabs 07/18/23 rosuvastatin 40 mg tablet 20 mg (1/2 x 40 mg) PO DAILY #90 08/16/23 tabs sacubitril 49 mg-valsartan 51 mg 1 tab PO BID #180 tabs 09/16/23 tablet (Entresto) methocarbamol 500 mg tablet 500 mg PO BID #60 tabs 10/21/23 amoxicillin 875 mg-potassium 1 tab PO Q12H #20 tabs 10/27/23 clavulanate 125 mg tablet fluticasone propionate 50 2 spray intranasal DAILY #16 grams 10/27/23 mcg/actuation nasal spray,suspension (Flonase Allergy Relief) metformin 750 mg tablet,extended 1,500 mg (2 x 750 mg) .Route 10/30/23 release 24 hr .COMPLEX 30 days #60 tabs albuterol sulfate 90 mcg/actuation 2 puff inhalation Q4-6H PRN 11/01/23 aerosol inhaler shortness of breath or wheezing #6.7 grams melatonin 10 mg capsule 10 mg PO HS PRN sleep #30 caps 11/01/23 diphenhydramine HCl 25 mg capsule 25 mg PO Q8H PRN itching #10 caps 11/03/23 (Allergy (diphenhydramine)) famotidine 40 mg tablet 40 mg PO BID 14 days #28 tabs 11/04/23 gabapentin 600 mg tablet See Rx Instructions .Route 11/04/23 .COMPLEX #60 tabs tramadol 50 mg tablet 50 mg PO Q6H PRN PAIN #120 tabs 11/04/23 cephalexin 500 mg tablet 500 mg PO BID 7 days #14 tabs 11/09/23 carvedilol 25 mg tablet See Rx Instructions .Route 11/13/23 .COMPLEX #180 tabs hydroxychloroquine 200 mg tablet See Rx Instructions .Route 11/15/23 .COMPLEX #60 tabs naproxen 375 mg tablet See Rx Instructions .Route 11/15/23 .COMPLEX #60 tabs omeprazole 20 mg capsule,delayed See Rx Instructions .Route 11/15/23 release .COMPLEX #180 caps rivaroxaban 20 mg tablet (Xarelto) See Rx Instructions .Route 11/15/23 .COMPLEX #30 tabs sitagliptin phosphate 50 See Rx Instructions .Route 11/15/23 mg-metformin 500 mg tablet .COMPLEX #60 tabs (Janumet) lidocaine 5 % topical patch 1 patch topical DAILY PRN pain #15 12/03/23 ea Allergies Allergy/AdvReac Type Severity Reaction Status Date / Time prednisone Allergy Unknown Verified 11/09/23 14:52 allergy reaction empagliflozin AdvReac Mild Unknown Verified 11/09/23 14:52 [From Jardiance] allergy reaction dapagliflozin [From Farxiga] AdvReac Cramping Verified 11/07/23 08:31 of the Muscles Worker's Comp Is this a Worker's Comp case?: No [facility] Disclaimer: The information contained in this section may have been updated after the patient was seen, as this information can be updated by other users. 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) History of cholecystectomy H/O removal of cyst History of tonsillectomy History of carpal tunnel release of both wrists H/O: hysterectomy History of appendectomy Family History Other Family history of cancer Family history of diabetes mellitus Social History Smoking Status: Never smoker second hand exposure: No alcohol intake: never counseling provided: none substance use type: denies use current occupational status: other Travel in the last 8 weeks: None household members: spouse housing: house 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 ROS Obtained: Yes All systems reviewed & no additional complaints except as documented and Yes Systems reviewed as appropriate & no additional complaints except as documented Constitutional Constitutional: Reports system reviewed and no additional complaints, except as documented, Reports as per HPI and Denies fever(s) Cardiovascular Cardiovascular: Reports system reviewed and no additional complaints, except as documented and Reports as per HPI Respiratory Respiratory: Reports system reviewed and no additional complaints, except as documented and Reports as per HPI Gastrointestinal Gastrointestingal: Reports system reviewed and no additional complaints, except as documented and as per HPI Genitourinary Female Genitourinary: Reports system reviewed and no additional complaints, except as documented, Reports as per HPI, Denies difficulty voiding, Denies dysuria, Denies flank pain, Denies pelvic pain, Denies urinary frequency, Denies urinary hesitancy and Denies urinary urgency Musculoskeletal Musculoskeletal: Reports system reviewed and no additional complaints, except as documented, Reports as per HPI and Reports back pain (spasm like pain in her right lower back area) Integumentary/Breasts Skin/Breast: Reports system reviewed and no additional complaints, except as documented and Reports as per HPI Neurologic Neurologic: Reports system reviewed and no additional complaints, except as documented and Reports as per HPI Physical Exam General General appearance: alert and in no apparent distress ENT ENT exam: Present mucous membranes moist Respiratory Respiratory exam: Present normal lung sounds bilaterally; Absent respiratory distress or wheezes Cardiovascular Cardiovascular exam: Present regular rate, normal rhythm and normal heart sounds Abdominal Exam Abdominal exam: Present soft and normal bowel sounds; Absent distention or tenderness Back Exam Back exam: Present tenderness and muscle spasm Back 1 view image: 1. reports spasm like pain since she sit bent over scrapping off her porch, denies known injury Denies loss of control of bowel or bladder Neurological Exam Neurological exam: Present alert, oriented X3 and normal gait Medical Decision Making Medical Records Screening: Per USPSTF and CDC recommendations, given the prevalence of disease in our region, it is our hospital?s policy to screen for HIV and viral Hepatitis for all patients aged 18 and over and those with ongoing risk factors. Robbie Inquiry Pt receiving controlled substance: No Robbie was queried for this patient: No Vital Signs: 12/03/23 09:51 Temperature 97.8 F Temperature Source Oral Pulse Rate [Radial] 81 Respiratory Rate 16 Blood Pressure [Right Arm] 90/58 L Blood Pressure Mean [Right Arm] 68 Blood Pressure Source [Right Arm] Automatic Cuff Blood Pressure Position [Right Arm] Sitting 02 Sat by Pulse Oximetry 97 Oxygen Delivery Method Room Air Medical Decision Narrative: Patient is currently on Baclofen, methocarbamol, tramadol, Naproxen and gabapentin reports had CT and is currently seeing pain management, having spasm like pain in her right lower back area after sitting bent over scrapping off porch, denies known injury patient recently was seen in ED for possible adverse reaction to Prednisone discussed with patient about imaging and she declined at this time Discussed with patient that we could add a lidocaine patch and have her follow up with Pain management for furhter evaluation and treatement and she agreed
[2023-12-03 10:38] VITALS: BP 90/58; PULSE 81; RESP 16; TEMP 36.6; O2SAT 97
== END 2023-12-03 10:39 | disposition home or self-care (01) ==
LOC: ER 09:38 → UTC 09:40
PROVIDERS: Emergency Provider Nurse Practitioner; PCP Nurse Practitioner Family
DX: M62.830 Muscle spasm of back (principal)
CPT/HCPCS: 99212; G0381

== ENCOUNTER 2023-12-06 09:30 | Outpatient (CLI) | payer BC, SELFPAY ==
[2023-12-06 12:15] LABS: Albumin Level 4.1 g/dl (3.5-5.0); Chloride 103 mmol/L (98-107)
[2023-12-06 12:16] LABS: Potassium 5.1 mmoL/L (3.5-5.1); Sodium 135 mmol/L (136-145)
[2023-12-06 12:18] LABS: Alanine Aminotransferase 28 U/L (12-78); Albumin/Globulin Ratio 1.5 (1.1-1.8); Anion Gap 14.1 mEq/L (5-15); Aspartate Amino Transferase 33 U/L (14-36); Blood Urea Nitrogen 25 mg/dl (7-17); Carbon Dioxide 23 mmol/L (22.0-30.0); Cholesterol 131 mg/dl (140-200); Estimated Glomerular Filt Rate 41 ml/min (>60); GFR (African American) 49 ML/MIN (>60); Globulin 2.7 g/dL (1.3-3.2); Total Protein,Serum 6.8 g/dl (6.3-8.2); Triglycerides 201 mg/dl (30-150); VLDL Cholesterol 40 mg/dL (0-40)
[2023-12-06 12:19] LABS: Alkaline Phosphatase 105 U/L (38-126); Bilirubin,Total 0.7 mg/dl (0.2-1.3); Calcium 9.8 mg/dl (8.4-10.2); Glucose 192 mg/dl (74-100); HDL Cholesterol 43 mg/dl (40-60); Magnesium 1.8 mg/dl (1.6-2.3)
[2023-12-06 12:29] LABS: Direct LDL Cholesterol 57.43 mg/dL (100-129)
[2023-12-06 12:50] LABS: Thyroid Stimulating Hormone < 0.02 uIU/mL (0.465-4.68)
[2023-12-06 12:54] LABS: Ferritin 29.4 ng/ml (6.24-137)
[2023-12-07 10:23] LABS: Triiodothyronine (T3) Free 2.7 pg/mL (2.0-4.4)
== END 2023-12-06 23:59 | disposition home or self-care (01) ==
LOC: LAB 09:31
PROVIDERS: PCP Nurse Practitioner Family; Visit Provider Nurse Practitioner Family
DX: E78.2 Mixed hyperlipidemia (principal); R79.89 Other specified abnormal findings of blood chemistry; M62.830 Muscle spasm of back; E11.69 Type 2 diabetes mellitus with other specified complication; D50.9 Iron deficiency anemia, unspecified
CPT/HCPCS: 36415; 80053; 80061; 82728; 83036; 83735; 84443; 84481

== ENCOUNTER 2023-12-23 09:59 | Outpatient (POV) | payer BC, SELFPAY ==
[2023-12-23 10:20] VITALS: BP 114/66; PULSE 86; RESP 16; O2SAT 16; BMI 43.9
--- NOTE | 2023-12-23 10:39 | A.OFFVIS_ITS ---
[facility] Disclaimer: The information contained in this section may have been updated after the patient was seen, as this information can be updated by other users. 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 Tenderness of chest wall Pacemaker Anxiety and depression CHF (congestive heart failure) Dyspnea Chronic systolic heart failure Post-tonsillectomy hemorrhage Pulmonary hypertension Diabetes mellitus Epicondylitis Nonischemic cardiomyopathy SOB (shortness of breath) Edema Palpitations Diastolic dysfunction Hyperlipidemia Iron deficiency anemia History of pulmonary embolus (PE) Hypertensive heart disease Cardiomyopathy Hypertensive disorder Surgical History History of cholecystectomy H/O removal of cyst leg History of tonsillectomy History of carpal tunnel release of both wrists H/O: hysterectomy History of appendectomy Family History Other Family history of cancer Family history of diabetes mellitus Social History Smoking Status: Never smoker second hand exposure: No alcohol intake: never counseling provided: none substance use type: denies use current occupational status: other Travel in the last 8 weeks: None household members: spouse housing: house 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 Today she rates her pain a 7 out of 10. Patient states that about a month or so ago she was working on a deck and sitting style and was scraping for several hours. Patient states that she ended up starting to experience more pain in her low back and right hip that did go into her buttocks and upper thigh. Patient does describe this as a sharp, throbbing, numbness sensation that does interfere with her ability perform activities of daily living such as cooking and cleaning. Patient does state that the pain just does not seem to go away and that it is progressively worsened. Patient states that she is even had times where she went to sit down and had a sharp pain and thought that she had actually sat on something but it was deeper. Patient has tried oral medication, heat and ice and topicals with minimal relief. Patient has also done massage therapy and been doing at home exercising and stretching for longer than 6 weeks. Patient does state that her primary care did try and switch her muscle relaxer to baclofen 20 mg however he has not done too much better. Patient also states about a month or so ago she did get very sick when she was given amoxicillin and had to go to the ER due to facial swelling and her throat itch ing. Patient does also have some pain in and around her right shoulder blade and states that it was even swallowing some and that she recently had massage therapy and it did help at least temporarily. Patient denies any other changes. Her Robbie has been reviewed and is appropriate. Review of Systems: General: No recent weight changes, no fever, no sleep disturbances Respiratory: No cough, no shortness of air, no recurring pulmonary infections Cardiovascular/peripheral vascular: No chest pain, no palpitations, no edema, no shortness of breath Gastrointestinal: No new onset incontinence, normal bowel movements reported Genitourinary: No new onset incontinence Musculoskeletal: Low back, right hip pain, right buttocks pain Psychiatric: [Normal mood/affect] Neurological: [Denies weakness in extremities], [denies balance issues] Pain at rest (0-10 scale): 7 Objective Objective:: Physical Exam: General: Alert and oriented x3, no acute distress, pleasant and cooperative Lungs: Respirations even and unlabored, symmetrical chest expansion Eyes: PERRL Musculoskeletal: Flexion and extension of lumbar [spine] somewhat guarded secondary to pain, [antalgic gait noted] point tenderness along right SI with positive right Mara's, Sara's, Gaenslen's, compression and distraction exam Neurological: Speech clear, no gross sensory deficit Has patient had previous pain injection?: No Conservative treatment options previously tried: Home exercise plan Length of treatment: Longer than 6 weeks Meds Home Medications and Allergies Home Medications ?Medication ?Instructions ?Recorded ?Confirmed ?Type biotin 10,000 mcg capsule 10,000 mcg PO DAILY Supplement 03/15/17 12/23/23 History magnesium chloride 64 mg 400 mg PO DAILY 10/26/22 12/23/23 History (magnesium chloride) tablet coenzyme Q10 200 mg capsule (Co 200 mg PO DAILY 11/07/22 12/23/23 History Q-10) cholecalciferol (vitamin D3) 10 10 mcg PO DAILY 05/15/23 12/23/23 History mcg (400 unit) capsule psyllium 1 tbsp PO DAILY 05/15/23 12/23/23 History spironolactone 25 mg tablet 25 mg PO DAILY Fluid #90 tabs 07/18/23 12/23/23 Rx rosuvastatin 40 mg tablet 20 mg (1/2 x 40 mg) PO DAILY #90 08/16/23 12/23/23 Rx tabs sacubitril 49 mg-valsartan 51 mg 1 tab PO BID #180 tabs 09/16/23 12/23/23 Rx tablet (Entresto) blood sugar diagnostic (Accu-Chek 09/17/23 12/23/23 History Guide test strips) blood-glucose meter (Accu-Chek 09/17/23 12/23/23 History Guide Glucose Meter) buspirone 10 mg tablet 10 mg PO .COMPLEX 09/17/23 12/23/23 History furosemide 40 mg tablet 40 mg PO DAILY PRN Fluid 09/17/23 12/23/23 History hydroxyzine HCl 25 mg tablet 25 mg PO .COMPLEX 09/17/23 12/23/23 History lancets (Accu-Chek Softclix 09/17/23 12/23/23 History Lancets) pen needle, diabetic 31 gauge x #1,200 ea 09/17/23 12/23/23 History 5/16 (BD Ultra-Fine Short Pen Needle) triamcinolone acetonide 0.1 % 1 applic topical .COMPLEX PRN as 09/17/23 12/23/23 History topical cream needed metformin 750 mg tablet,extended 1,500 mg (2 x 750 mg) .Route 10/30/23 12/23/23 Rx release 24 hr .COMPLEX 30 days #60 tabs amantadine HCl 100 mg tablet 100 mg PO .COMPLEX 11/01/23 12/23/23 History melatonin 10 mg capsule 10 mg PO HS PRN sleep #30 caps 11/01/23 12/23/23 Rx ondansetron 4 mg disintegrating 4 mg PO DIRECTED PRN Nausea 11/01/23 12/23/23 History tablet famotidine 40 mg tablet 40 mg PO BID 14 days #28 tabs 11/04/23 12/23/23 Rx tramadol 50 mg tablet 50 mg PO Q6H PRN PAIN #120 tabs 11/04/23 12/23/23 Rx carvedilol 25 mg tablet See Rx Instructions .Route 11/13/23 12/23/23 Rx .COMPLEX #180 tabs omeprazole 20 mg capsule,delayed See Rx Instructions .Route 11/15/23 12/23/23 Rx release .COMPLEX #180 caps rivaroxaban 20 mg tablet (Xarelto) See Rx Instructions .Route 11/15/23 12/23/23 Rx .COMPLEX #30 tabs gabapentin 600 mg tablet See Rx Instructions .Route 12/03/23 12/23/23 Rx .COMPLEX #60 tabs lidocaine 5 % topical patch 1 patch topical DAILY PRN pain #15 12/03/23 12/23/23 Rx ea baclofen 20 mg tablet 20 mg PO QID 30 days #120 tabs 12/06/23 12/23/23 Rx insulin glargine 100 unit/mL (3 16 unit (0.16 mL) SQ HS 30 days 12/11/23 12/23/23 Rx mL) subcutaneous pen (Basaglar #4.8 mL KwikPen U-100 Insulin) hydroxychloroquine 200 mg tablet See Rx Instructions .Route 12/13/23 12/23/23 Rx .COMPLEX #60 tabs naproxen 375 mg tablet See Rx Instructions .Route 12/13/23 12/23/23 Rx .COMPLEX #60 tabs sitagliptin phosphate 50 See Rx Instructions .Route 12/13/23 12/23/23 Rx mg-metformin 500 mg tablet .COMPLEX #60 tabs (Janumet) New Prescriptions to Start Prescriptions: Allergies Allergy/AdvReac Type Severity Reaction Status Date / Time prednisone Allergy Unknown Verified 12/06/23 08:35 allergy reaction empagliflozin AdvReac Mild Unknown Verified 12/06/23 08:35 [From Jardiance] allergy reaction dapagliflozin [From Farxiga] AdvReac Cramping Verified 12/06/23 08:35 of the Muscles Assessment and Plan *Assessment and plan (1) Sacroiliitis: Status: Acute Category: Medical Code(s): M46.1 - Sacroiliitis, not elsewhere classified Plan Patient is experiencing worsening pain in her low back and right hip with numbness. Patient did have point tenderness along her right SI and a positive right Mara's, Sara's, Gaenslen's, compression and distraction exam. I did discuss with the patient that I do believe she would benefit from a right SI injection. Risk and benefits were discussed with the patient and she would like to proceed forward with this plan of care. Patient has tried and failed conservative therapy including continued at home stretching exercise for longer than 6 weeks. Patient will be scheduled for a right SI injection under fluoroscopy. Patient has been instructed to contact the clinic with any concerns before the next appointment. Dr. Rivera has reviewed this note and agrees with this plan of care. This note was dictated using voice recognition software and make contain errors or omissions. All injections are used with Lidocaine or Bupivacaine and Depo Medrol.
== END 2023-12-23 23:59 | disposition home or self-care (01) ==
LOC: SC.PAIN 10:00
PROVIDERS: PCP Nurse Practitioner Family; Visit Provider Nurse Practitioner Family
DX: M46.1 Sacroiliitis, not elsewhere classified (principal); Z73.89 Other problems related to life management difficulty; Z79.899 Other long term (current) drug therapy; Z79.01 Long term (current) use of anticoagulants
CPT/HCPCS: 99212; G0463

== ENCOUNTER 2024-01-14 08:46 | Day surgery (SDC) | payer BC, SELFPAY ==
[2024-01-14 09:00] VITALS: BP 121/68; PULSE 89; RESP 16; TEMP 36.4; O2SAT 98; BMI 42.8
[2024-01-14] MEDS: BUPIVACAINE 0.25% 10ML INJ 25 MG IJ (09:31)
[2024-01-14] MEDS: LIDOCAINE 1% 5ML PF VIAL 5 ML (09:32)
[2024-01-14 09:34] VITALS: BP 108/75; PULSE 83; RESP 16; O2SAT 93
--- NOTE | 2024-01-14 09:42 | P.PCN_ITS ---
Procedure Date: 01/14/24 Time: 09:20 Anesthesiologist:: Gustavo Ahumada CRNA Complications:: None Pre-procedure Diagnosis:: Right sacroiliitis Post-procedure Diagnosis:: Same Indications for Procedure:: Patient is a very pleasant 43-year-old female comes our clinic today for right sacroiliac joint injection of cortisone and local anesthetic. Patient describes right low lumbar back pain off the midline to the right. Right posterior hip pain. Difficulty transitioning from sitting to standing. Difficulty with ambulation. Difficulty with sitting. Patient reports having a mild anaphylaxis reaction to oral steroids in the past. We discussed in detail the chance of reaction with intra-articular steroid. We discussed options risk and benefits. She wishes to proceed. Procedure Details:: Procedure: Right sacroliliac joint injection under fluoroscopy Informed consent was obtained and the risk and benefits of the procedure were explained to the patient.~ The patient was taken to the procedure room and noninvasive monitors were placed including noninvasive blood pressure cuff and pulse oximeter.~ The patient was placed prone on the procedure table.~ The~ right hip was cleansed using Betadine as a cleansing solution.~ C-arm fluo rosocpy was used to view the right SI joint.~ The skin and subcutaneous tissues were anesthetized using Lidocaine 1.5% and a 25-gauge needle.~ After this, a 22- gauge spinal needle was inserted under fluoroscopic guidance into the inferior aspect of the right SI joint.~ Omnipaque dye was injected and a good spread was seen throughout the joint.~ After this, approximately 5 mL of bupivacaine 0.25% and Depo-Medrol 20 mg was incrementally injected into the sacroiliac joint.~ The patient tolerated the procedure well with no complications.~ The patient was observed in the Pain Clinic, then discharged home neurologically intact.~ Plan and Disposition:: Patient was discharged without incident.
== END 2024-01-14 09:34 | disposition home or self-care (01) ==
LOC: SC.PAINP 08:46
PROVIDERS: PCP Nurse Practitioner Family; Visit Provider Nurse Practitioner Family
DX: M46.1 Sacroiliitis, not elsewhere classified (principal)
CPT/HCPCS: 27096; G0260; J1010

== ENCOUNTER 2024-01-31 08:06 | Outpatient (POV) | payer BC, SELFPAY ==
[2024-01-31 08:38] VITALS: BP 105/65; PULSE 95; RESP 16; O2SAT 100; BMI 43.5
--- NOTE | 2024-01-31 08:47 | EXP.PAIN.SOA ---
[facility] Disclaimer: The information contained in this section may have been updated after the patient was seen, as this information can be updated by other users. 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 History of cardiac pacemaker Acute pharyngitis Tenderness of chest wall Pacemaker Anxiety and depression CHF (congestive heart failure) Dyspnea Chronic systolic heart failure Post-tonsillectomy hemorrhage Pulmonary hypertension Diabetes mellitus Epicondylitis Nonischemic cardiomyopathy SOB (shortness of breath) Edema Palpitations Diastolic dysfunction Hyperlipidemia Iron deficiency anemia History of pulmonary embolus (PE) Hypertensive heart disease Cardiomyopathy Hypertensive disorder Surgical History History of cholecystectomy H/O removal of cyst History of tonsillectomy History of carpal tunnel release of both wrists H/O: hysterectomy History of appendectomy Family History Other Family history of cancer Family history of diabetes mellitus Social History Smoking Status: Never smoker second hand exposure: No alcohol intake: never counseling provided: none substance use type: denies use current occupational status: other Travel in the last 8 weeks: None household members: spouse housing: house 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 Today she rates her pain a 3 out of 10. Patient states that she did at least have 80% initially relief with this injection however feels like now it is writing about 65%. Patient states she has been able to do more activity with overall decreased pain and feels much more functional. Patient does state the pain is not as severe as what it was. Patient denies any other changes from her last visit. She does state that she still could never get much improvement with the compounded cream and she does use both the baclofen 20 mg along with methocarbamol 500 mg and the combination seems to work well for her. Her Robbie has been reviewed and is appropriate. Review of Systems: General: No recent weight changes, no fever, no sleep disturbances Respiratory: No cough, no shortness of air, no recurring pulmonary infections Cardiovascular/peripheral vascular: No chest pain, no palpitations, no edema, no shortness of breath Gastrointestinal: No new onset incontinence, normal bowel movements reported Genitourinary: No new onset incontinence Musculoskeletal: Low back pain Psychiatric: [Normal mood/affect] Neurological: [Denies weakness in extremities], [denies balance issues] Pain at rest (0-10 scale): 3 Objective Objective:: Physical Exam: General: Alert and oriented x3, no acute distress, pleasant and cooperative Lungs: Respirations even and unlabored, symmetrical chest expansion Eyes: PERRL Musculoskeletal: Flexion and extension of lumbar [spine] somewhat guarded secondary to pain, [antalgic gait noted] Neurological: Speech clear, no gross sensory deficit Has patient had previous pain injection?: Yes Percent improvement in pain since last injection: 80% - 65% Conservative treatment options previously tried: Home exercise plan Length of treatment: Longer than 12 weeks Meds Home Medications and Allergies Home Medications ?Medication ?Instructions ?Recorded ?Confirmed ?Type biotin 10,000 mcg capsule 10,000 mcg PO DAILY Supplement 03/15/17 01/31/24 History magnesium chloride 64 mg 400 mg PO DAILY 10/26/22 01/31/24 History (magnesium chloride) tablet coenzyme Q10 200 mg capsule (Co 200 mg PO DAILY 11/07/22 01/31/24 History Q-10) cholecalciferol (vitamin D3) 10 10 mcg PO DAILY 05/15/23 01/31/24 History mcg (400 unit) capsule rosuvastatin 40 mg tablet 20 mg (1/2 x 40 mg) PO DAILY #90 08/16/23 01/31/24 Rx tabs sacubitril 49 mg-valsartan 51 mg 1 tab PO BID #180 tabs 09/16/23 01/31/24 Rx tablet (Entresto) blood sugar diagnostic (Accu-Chek 09/17/23 01/31/24 History Guide test strips) blood-glucose meter (Accu-Chek 09/17/23 01/31/24 History Guide Glucose Meter) buspirone 10 mg tablet 10 mg PO .COMPLEX 09/17/23 01/31/24 History furosemide 40 mg tablet 40 mg PO DAILY PRN Fluid 09/17/23 01/31/24 History lancets (Accu-Chek Softclix 09/17/23 01/31/24 History Lancets) pen needle, diabetic 31 gauge x #1,200 ea 09/17/23 01/31/24 History 5/16 (BD Ultra-Fine Short Pen Needle) metformin 750 mg tablet,extended 1,500 mg (2 x 750 mg) .Route 10/30/23 01/31/24 Rx release 24 hr .COMPLEX 30 days #60 tabs amantadine HCl 100 mg tablet 100 mg PO .COMPLEX 11/01/23 01/31/24 History melatonin 10 mg capsule 10 mg PO HS PRN sleep #30 caps 11/01/23 01/31/24 Rx famotidine 40 mg tablet 40 mg PO BID 14 days #28 tabs 11/04/23 01/31/24 Rx tramadol 50 mg tablet 50 mg PO Q6H PRN PAIN #120 tabs 11/04/23 01/31/24 Rx carvedilol 25 mg tablet See Rx Instructions .Route 11/13/23 01/31/24 Rx .COMPLEX #180 tabs omeprazole 20 mg capsule,delayed See Rx Instructions .Route 11/15/23 01/31/24 Rx release .COMPLEX #180 caps rivaroxaban 20 mg tablet (Xarelto) See Rx Instructions .Route 11/15/23 01/31/24 Rx .COMPLEX #30 tabs lidocaine 5 % topical patch 1 patch topical DAILY PRN pain #15 12/03/23 01/31/24 Rx ea baclofen 20 mg tablet 20 mg PO QID 30 days #120 tabs 12/06/23 01/31/24 Rx gabapentin 600 mg tablet See Rx Instructions .Route 01/03/24 01/31/24 Rx .COMPLEX #60 tabs ondansetron HCl 4 mg tablet See Rx Instructions .Route 01/06/24 01/31/24 Rx .COMPLEX #30 tabs hydroxychloroquine 200 mg tablet See Rx Instructions .Route 01/08/24 01/31/24 Rx .COMPLEX #60 tabs hydroxyzine HCl 25 mg tablet See Rx Instructions .Route 01/08/24 01/31/24 Rx .COMPLEX #90 tabs methocarbamol 500 mg tablet 500 mg PO TID #90 tabs 01/08/24 01/31/24 Rx naproxen 375 mg tablet See Rx Instructions .Route 01/08/24 01/31/24 Rx .COMPLEX #60 tabs sitagliptin phosphate 50 See Rx Instructions .Route 01/08/24 01/31/24 Rx mg-metformin 500 mg tablet .COMPLEX #60 tabs (Janumet) spironolactone 25 mg tablet 25 mg PO DAILY Fluid #90 tabs 01/08/24 01/31/24 Rx triamcinolone acetonide 0.1 % See Rx Instructions .Route 01/17/24 01/31/24 Rx topical cream .COMPLEX #80 grams New Prescriptions to Start Prescriptions: Allergies Allergy/AdvReac Type Severity Reaction Status Date / Time prednisone Allergy Unknown Verified 12/25/23 09:04 allergy reaction empagliflozin (From AdvReac Mild Unknown Verified 12/25/23 09:04 Jardiance) allergy reaction dapagliflozin (From Farxiga) AdvReac Cramping Verified 12/25/23 09:04 of the Muscles Assessment and Plan *Assessment and plan (1) Lumbar degenerative disc disease: Status: Acute Category: Medical Code(s): M51.36 - Other intervertebral disc degeneration, lumbar region (2) Lumbar facet arthropathy: Status: Acute Category: Medical Code(s): M47.816 - Spondylosis without myelopathy or radiculopathy, lumbar region (3) Sacroiliitis: Status: Acute Category: Medical Code(s): M46.1 - Sacroiliitis, not elsewhere classified Plan Patient has had significant improvement following her SI injection and does not require any additional injection therapy at this time. Patient will return to clinic in 6 weeks for reevaluation of symptoms and plan of care. Patient has been instructed to contact the clinic with any concerns before the next appointment. Dr. Rivera has reviewed this note and agrees with this plan of care. This note was dictated using voice recognition software and make contain errors or omissions. All injections are used with Lidocaine or Bupivacaine and Depo Medrol.
== END 2024-01-31 23:59 | disposition home or self-care (01) ==
LOC: SC.PAIN 08:07
PROVIDERS: PCP Nurse Practitioner Family; Visit Provider Nurse Practitioner Family
DX: M51.369 Other intervertebral disc degeneration, lumbar region without mention of lumbar back pain or lower extremity pain (principal); M47.816 Spondylosis without myelopathy or radiculopathy, lumbar region; M46.1 Sacroiliitis, not elsewhere classified; Z79.899 Other long term (current) drug therapy
CPT/HCPCS: 99212; G0463

== ENCOUNTER 2024-02-13 08:22 | Day surgery (SDC) | payer BC, SELFPAY ==
[2024-02-13] VITALS (7 sets, daily range): BP systolic 95–135; BP diastolic 54–84; PULSE 84–89; RESP 18; TEMP 36.9; O2SAT 95–99; BMI 44.2
--- NOTE | 2024-02-13 07:09 | IR_ITS ---
APPROVED REPORT Patient Location: Outpatient PROCEDURES 1. Pocket Revision 2. Removal of old GIMP TACKER-D generator 3. Implant of GIMP TACKER-D generator INDICATION End of battery life Informed consent was obtained prior to the procedure. COMPLICATIONS NONE Estimated Blood Loss: LESS THAN 10 ML TECHNIQUE 1% lidocaine with epinephrine used to anesthetize the left anterior aspect of the chest. Scalpel was used to make the initial cutaneous incision and then used to dissect down to the existing pacemaker generator. The generator was removed from the existing pocket. Digital manipulation was required along with intermittent usage of scalpel in order to revise the pocket. The leads were removed from the old generator. The new generator was screwed to the existing leads and secured into place. Electronic interrogation proved acceptable thresholds and voltage within the lead. Antibiotics were used to flush the pocket and the pacemaker was secured using 3-0 silk into the newly revised pocket. Monocryl was used to close the subcutaneous tissue and then winnie were placed on the cutaneous area in order to approximate the incision. Patient was transferred to the postop holding area in stable condition. INTERROGATION Explanted Generator Model number: [id number] Explanted Generator Serial number: [id number] Implanted Generator Model number: [place] HF, [id number] Implanted Generator Serial number: [id number] Atrial lead model number: [id number], 46cm Atrial lead serial number: [id number] P-wave: 2.1mV Impedance: 460 ohms Threshold: 1.0V@0.4ms Right Ventricular lead model number: [id number], 58cm Right Ventricular lead serial number: [id number] R-wave: 12mV Impedance: 500 ohms Threshold: 0.75V@0.5ms Left Ventricular lead model number: [id number], 86cm Left Ventricular lead serial number: [id number] Impedance: 1375 ohms Threshold: 2.5V@0.8ms (D1P4) High Voltage 50 ohms Pacing Parameters: Mode: DDDR Base/Max Track:60 ppm / 130 ppm No diaphragmatic stimulation at 10 volts. IMPRESSION 1. Successful Pocket Revision 2. Successful Removal of GIMP TACKER-D generator 3. Successful Implant of GIMP TACKER-D generator PLAN 1. Postop wound care. Electronically signed by : Rodrick Tay MD 02/13/2024 14:29:16
[2024-02-13 09:14] LABS: Chloride 105 mmol/L (98-107); Potassium 5.1 mmoL/L (3.5-5.1); Sodium 136 mmol/L (136-145)
[2024-02-13 09:17] LABS: Anion Gap 11.1 mEq/L (5-15); Blood Urea Nitrogen 18 mg/dl (7-17); Calcium 9.9 mg/dl (8.4-10.2); Carbon Dioxide 25 mmol/L (22.0-30.0); Creatinine Clearance Estimated 49 mL/min (50-200); Estimated Glomerular Filt Rate 49 ml/min (>60); GFR (African American) 59 ML/MIN (>60); Glucose 141 mg/dl (74-100)
[2024-02-13 09:42] LABS: Hematocrit 33.9 % (37.0-47.0); Hemoglobin 10.8 g/dL (12.2-16.2); Red Blood Count 4.39 M/mm3 (4.20-5.40); White Blood Count 9.8 K/mm3 (4.8-10.8)
[2024-02-13 09:43] LABS: Basophils # 0.1 K/mm3 (0-0.2); Basophils % 0.5 % (0.1-2.0); Eosinophils # 0.5 K/mm3 (0.0-0.4); Eosinophils % 5.5 % (0.1-12.0); Lymphocytes # 1.8 K/mm3 (0.7-4.5); Lymphocytes % 18.4 % (10-50); Mean Corpuscular HGB Conc 31.9 g/dL (31.8-35.4); Mean Corpuscular Hemoglobin 24.6 pg (27.0-31.2); Mean Corpuscular Volume 77.2 fl (81-99); Monocytes # 0.7 K/mm3 (0.1-1.0); Neutrophils # 6.7 K/mm3 (1.8-7.8); Neutrophils % 68.4 % (37.0-80.0); Platelet Count 373 K/mm3 (142-424); Red Cell Distribution Width 13.4 % (11.5-17.5)
--- NOTE | 2024-02-13 11:10 | P.PNANES_ITS ---
[facility] Disclaimer: The information contained in this section may have been updated after the patient was seen, as this information can be updated by other users. 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 Implantable cardioverter-defibrillator (ICD) at end of battery life History of cardiac pacemaker Acute pharyngitis Tenderness of chest wall Pacemaker Anxiety and depression CHF (congestive heart failure) Dyspnea Chronic systolic heart failure Post-tonsillectomy hemorrhage Pulmonary hypertension Diabetes mellitus Epicondylitis Nonischemic cardiomyopathy SOB (shortness of breath) Edema Palpitations Diastolic dysfunction Hyperlipidemia Iron deficiency anemia History of pulmonary embolus (PE) Hypertensive heart disease Cardiomyopathy Hypertensive disorder Surgical History History of cholecystectomy H/O removal of cyst History of tonsillectomy History of carpal tunnel release of both wrists H/O: hysterectomy History of appendectomy Family History Other Family history of cancer Family history of diabetes mellitus Social History Smoking Status: Never smoker second hand exposure: No alcohol intake: never counseling provided: none substance use type: denies use current occupational status: other Travel in the last 8 weeks: None household members: spouse housing: house 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 Have you lived/traveled outside [place] in past 30 days?: No Contact w/someone who lives/traveled outside [place] past 30 days?: No Exposure to someone with infectious disease in past 14 days?: No Do you have a fever (greater than 100.4 F or 38 C)?: No Have you tested positive for COVID-19: No Exposed to someone with COVID-19 in past 14 days?: No Do you have a sore throat?: No Do you have a cough?: No Do you have any weakness?: No Do you have any diarrhea?: No Are you experiencing any unusual bleeding?: No Do you have any muscle aches/pain?: No Do you have any abdominal pain?: No Are you experiencing loss of taste or smell?: No [facility] Anesthesia Checklist Patient Identification Patient Identification: Arm Band Structural Data Admitted From: Home Planned Operative Procedure/s: Pacemaker Generator Change Consent for Planned Operative Procedure(s) Verified: Yes Verified Documents: Surgical Consent and History and Physical NPO Status Verified Time NPO: 00:00 Additional verifications Anesthesia Reactions: No Hx Blood Transfusions: No Blood Transfusion Reaction: No Airway Assessment Mallampati Score:: Class II C-Spine Mobility Assessed: Yes TMJ Mobility Assessed: Yes Dentition: Good Dentition Neurological Assessment Level of Consciousness: Awake, Alert and Appropriate Anesthesia Plan Anesthesia Risk discussed: Yes Anesthesia Plan: Verified ASA Class: IV Anesthesia Type: MAC
[2024-02-13] MEDS: CEFAZOLIN SODIUM 1 GM in 0.9 % SODIUM CHLORIDE 50 ML IV (12:05)
[2024-02-13] MEDS: 0.9 % SODIUM CHLORIDE 1000ML 1,000 ML 25 ML IV (12:06)
[2024-02-13] MEDS: CEFAZOLIN 1GM VIAL 1 GM TP (12:06)
[2024-02-13] MEDS: diphenhydrAMINE 50MG/ML VIAL 50 MG IV (12:06)
[2024-02-13] MEDS: LIDOCAINE 1% W/EPI 1:100,000 20ML VIAL 20 ML IJ (12:09)
== END 2024-02-13 14:35 | disposition home or self-care (01) ==
PROVIDERS: PCP Nurse Practitioner Family; Visit Provider Internal Medicine
DX: Z45.010 Encounter for checking and testing of cardiac pacemaker pulse generator [battery] (principal); I11.0 Hypertensive heart disease with heart failure; I50.22 Chronic systolic (congestive) heart failure; I42.9 Cardiomyopathy, unspecified; I27.20 Pulmonary hypertension, unspecified; E11.9 Type 2 diabetes mellitus without complications; Z68.41 Body mass index [BMI] 40.0-44.9, adult; E66.01 Morbid (severe) obesity due to excess calories; Z79.84 Long term (current) use of oral hypoglycemic drugs; Z79.899 Other long term (current) drug therapy
CPT/HCPCS: 33264; 80048; 85025; C1882; J1200; J2704; J7030

== ENCOUNTER 2024-03-12 08:21 | Outpatient (POV) | payer BC, SELFPAY ==
[2024-03-12 08:47] VITALS: BP 116/70; PULSE 88; RESP 16; O2SAT 97; BMI 42.8
--- NOTE | 2024-03-12 08:56 | A.OFFVIS_ITS ---
[facility] Disclaimer: The information contained in this section may have been updated after the patient was seen, as this information can be updated by other users. 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 Implantable cardioverter-defibrillator (ICD) at end of battery life History of cardiac pacemaker Acute pharyngitis Tenderness of chest wall Pacemaker Anxiety and depression CHF (congestive heart failure) Dyspnea Chronic systolic heart failure Post-tonsillectomy hemorrhage Pulmonary hypertension Diabetes mellitus Epicondylitis Nonischemic cardiomyopathy SOB (shortness of breath) Edema Palpitations Diastolic dysfunction Hyperlipidemia Iron deficiency anemia History of pulmonary embolus (PE) Hypertensive heart disease Cardiomyopathy Hypertensive disorder Surgical History History of cholecystectomy H/O removal of cyst leg, thumb and knee History of tonsillectomy History of carpal tunnel release of both wrists H/O: hysterectomy History of appendectomy Family History Other Family history of cancer Family history of diabetes mellitus Social History Smoking Status: Never smoker second hand exposure: No alcohol intake: never counseling provided: none substance use type: denies use current occupational status: other Travel in the last 8 weeks: None household members: spouse housing: house 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 Today she rates her pain a 4 out of 10. She states that overall she is still done well from her last appointment. She does feel like her last SI injection along the right side on January 13 is still working. Patient did get 80% relief from this injection. Patient does state that she does still use a combination of baclofen 20 mg with methocarbamol 500 mg and her compounded cream. Patient does state that she just takes one of the muscle relaxers in the morning that is nonsedating and the other at night to help her sleep. Her Robbie has been reviewed and is appropriate. Review of Systems: General: No recent weight changes, no fever, no sleep disturbances Respiratory: No cough, no shortness of air, no recurring pulmonary infections Cardiovascular/peripheral vascular: No chest pain, no palpitations, no edema, no shortness of breath Gastrointestinal: No new onset incontinence, normal bowel movements reported Genitourinary: No new onset incontinence Musculoskeletal: Low back pain Psychiatric: [Normal mood/affect] Neurological: [Denies weakness in extremities], [denies balance issues] Pain at rest (0-10 scale): 3 Objective Objective:: Physical Exam: General: Alert and oriented x3, no acute distress, pleasant and cooperative Lungs: Respirations even and unlabored, symmetrical chest expansion Eyes: PERRL Musculoskeletal: Flexion and extension of lumbar [spine] somewhat guarded seco ndary to pain, [antalgic gait noted] Neurological: Speech clear, no gross sensory deficit Has patient had previous pain injection?: No Conservative treatment options previously tried: Home exercise plan Length of treatment: Longer than 12 weeks Meds Home Medications and Allergies Home Medications ?Medication ?Instructions ?Recorded ?Confirmed ?Type biotin 10,000 mcg capsule 10,000 mcg PO DAILY Supplement 03/15/17 03/12/24 History magnesium chloride 64 mg 400 mg PO DAILY 10/26/22 03/12/24 History (magnesium chloride) tablet coenzyme Q10 200 mg capsule (Co 200 mg PO DAILY 11/07/22 03/12/24 History Q-10) cholecalciferol (vitamin D3) 10 10 mcg PO DAILY 05/15/23 03/12/24 History mcg (400 unit) capsule rosuvastatin 40 mg tablet 20 mg (1/2 x 40 mg) PO DAILY #90 08/16/23 03/12/24 Rx tabs sacubitril 49 mg-valsartan 51 mg 1 tab PO BID #180 tabs 09/16/23 03/12/24 Rx tablet (Entresto) blood sugar diagnostic (Accu-Chek 09/17/23 03/12/24 History Guide test strips) blood-glucose meter (Accu-Chek 09/17/23 03/12/24 History Guide Glucose Meter) buspirone 10 mg tablet 10 mg PO .COMPLEX 09/17/23 03/12/24 History furosemide 40 mg tablet 40 mg PO DAILY PRN Fluid 09/17/23 03/12/24 History lancets (Accu-Chek Softclix 09/17/23 03/12/24 History Lancets) pen needle, diabetic 31 gauge x #1,200 ea 09/17/23 03/12/24 History 5/16 (BD Ultra-Fine Short Pen Needle) metformin 750 mg tablet,extended 1,500 mg (2 x 750 mg) .Route 10/30/23 03/12/24 Rx release 24 hr .COMPLEX 30 days #60 tabs amantadine HCl 100 mg tablet 100 mg PO .COMPLEX 11/01/23 03/12/24 History melatonin 10 mg capsule 10 mg PO HS PRN sleep #30 caps 11/01/23 03/12/24 Rx famotidine 40 mg tablet 40 mg PO BID 14 days #28 tabs 11/04/23 03/12/24 Rx carvedilol 25 mg tablet See Rx Instructions .Route 11/13/23 03/12/24 Rx .COMPLEX #180 tabs omeprazole 20 mg capsule,delayed See Rx Instructions .Route 11/15/23 03/12/24 Rx release .COMPLEX #180 caps rivaroxaban 20 mg tablet (Xarelto) See Rx Instructions .Route 11/15/23 03/12/24 Rx .COMPLEX #30 tabs lidocaine 5 % topical patch 1 patch topical DAILY PRN pain #15 12/03/23 03/12/24 Rx ea baclofen 20 mg tablet 20 mg PO QID 30 days #120 tabs 12/06/23 03/12/24 Rx ondansetron HCl 4 mg tablet See Rx Instructions .Route 01/06/24 03/12/24 Rx .COMPLEX #30 tabs hydroxyzine HCl 25 mg tablet See Rx Instructions .Route 01/08/24 03/12/24 Rx .COMPLEX #90 tabs spironolactone 25 mg tablet 25 mg PO DAILY Fluid #90 tabs 01/08/24 03/12/24 Rx hydroxychloroquine 200 mg tablet See Rx Instructions .Route 02/12/24 03/12/24 Rx .COMPLEX #60 tabs sitagliptin phosphate 50 See Rx Instructions .Route 02/12/24 03/12/24 Rx mg-metformin 500 mg tablet .COMPLEX #60 tabs (Janumet) methocarbamol 500 mg tablet 500 mg PO TID #90 tabs 02/14/24 03/12/24 Rx naproxen 375 mg tablet See Rx Instructions .Route 02/14/24 03/12/24 Rx .COMPLEX #60 tabs gabapentin 600 mg tablet See Rx Instructions .Route 03/03/24 03/12/24 Rx .COMPLEX #60 tabs tramadol 50 mg tablet 50 mg PO Q6H PRN PAIN #120 tabs 03/03/24 03/12/24 Rx New Prescriptions to Start Prescriptions: Allergies Allergy/AdvReac Type Severity Reaction Status Date / Time prednisone Allergy Unknown Verified 02/27/24 09:59 allergy reaction empagliflozin (From AdvReac Mild Unknown Verified 02/27/24 09:59 Jardiance) allergy reaction dapagliflozin (From Farxiga) AdvReac Cramping Verified 02/27/24 09:59 of the Muscles Assessment and Plan *Assessment and plan (1) Sacroiliitis: Status: Acute Category: Medical Code(s): M46.1 - Sacroiliitis, not elsewhere classified Plan Patient has continued to do well from her injection in December and does not require any additional injection therapy at this time. Patient will return to clinic in 3 months. Patient does not need refills on her muscle relaxers however she was counseled that if something changes between now and her next visit to feel free to contact our office and I will send additional refills electronically. Patient acknowledges understanding agrees with plan of care. Patient has been instructed to contact the clinic with any concerns before the next appointment. Dr. Rivera has reviewed this note and agrees with this plan of care. This note was dictated using voice recognition software and make contain errors or omissions. All injections are used with Lidocaine, Bupivacaine and Depo Medrol. Occasionally urine drug screen is needed to verify patient's compliance with our office pain contract. This is ordered based off specific treatments related to chronic pain with the potential to abuse certain medications.
== END 2024-03-12 23:59 | disposition home or self-care (01) ==
LOC: SC.PAIN 08:22
PROVIDERS: PCP Nurse Practitioner Family; Visit Provider Nurse Practitioner Family
DX: M46.1 Sacroiliitis, not elsewhere classified (principal); Z79.899 Other long term (current) drug therapy
CPT/HCPCS: 99212; G0463

== ENCOUNTER 2024-03-18 09:14 | Outpatient (CLI) | payer BC, SELFPAY ==
[2024-03-18 13:28] LABS: Basophils # 0.1 K/mm3 (0-0.2); Basophils % 0.6 % (0.1-2.0); Eosinophils # 0.8 K/mm3 (0.0-0.4); Eosinophils % 7.5 % (0.1-12.0); Hematocrit 35.3 % (37.0-47.0); Lymphocytes # 2.2 K/mm3 (0.7-4.5); Lymphocytes % 20.3 % (10-50); Mean Corpuscular HGB Conc 31.2 g/dL (31.8-35.4); Mean Corpuscular Hemoglobin 24.6 pg (27.0-31.2); Mean Platelet Volume 10.8 fl (7.4-10.4); Monocytes # 0.7 K/mm3 (0.1-1.0); Monocytes % 6.2 % (1.7-9.3); Neutrophils % 65.1 % (37.0-80.0); Platelet Count 360 K/mm3 (142-424); Red Blood Count 4.47 M/mm3 (4.20-5.40); Red Cell Distribution Width 14.1 % (11.5-17.5); White Blood Count 10.7 K/mm3 (4.8-10.8)
[2024-03-18 13:36] LABS: Creatinine,Urine Random 95 mg/dL (Not Estab.)
[2024-03-18 13:45] LABS: Microalbumin < 6.000 mg/L (0-16.7)
[2024-03-18 13:59] LABS: Hemoglobin A1C 7.8 % (4.0-6.0)
[2024-03-18 14:30] LABS: Alanine Aminotransferase 25 U/L (12-78); Albumin Level 4.3 g/dl (3.5-5.0); Albumin/Globulin Ratio 1.7 (1.1-1.8); Alkaline Phosphatase 104 U/L (38-126); Anion Gap 17.2 mEq/L (5-15); Aspartate Amino Transferase 30 U/L (14-36); Bilirubin,Total 0.5 mg/dl (0.2-1.3); Blood Urea Nitrogen 13 mg/dl (7-17); Calcium 9.8 mg/dl (8.4-10.2); Carbon Dioxide 24 mmol/L (22.0-30.0); Chloride 102 mmol/L (98-107); Estimated Glomerular Filt Rate 78 ml/min (>60); GFR (African American) 94 ML/MIN (>60); Globulin 2.5 g/dL (1.3-3.2); Glucose 113 mg/dl (74-100); Potassium 5.2 mmoL/L (3.5-5.1); Sodium 138 mmol/L (136-145); Total Protein,Serum 6.8 g/dl (6.3-8.2)
[2024-03-18 15:04] LABS: Ferritin 8.55 ng/ml (6.24-137)
== END 2024-03-18 23:59 | disposition home or self-care (01) ==
LOC: LAB.DROPOF 03-19 13:49
PROVIDERS: PCP Nurse Practitioner Family; Visit Provider Nurse Practitioner Family
DX: E11.69 Type 2 diabetes mellitus with other specified complication (principal); D50.9 Iron deficiency anemia, unspecified; D64.9 Anemia, unspecified; E78.2 Mixed hyperlipidemia; I11.0 Hypertensive heart disease with heart failure; I50.22 Chronic systolic (congestive) heart failure; R79.89 Other specified abnormal findings of blood chemistry
CPT/HCPCS: 80053; 82043; 82570; 82728; 83036; 85025

== ENCOUNTER 2024-06-10 08:31 | Outpatient (POV) | payer BC, SELFPAY ==
--- NOTE | 2024-06-10 08:44 | A.OFFVIS_ITS ---
[facility] Disclaimer: The information contained in this section may have been updated after the patient was seen, as this information can be updated by other users. 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 (Updated 03/18/24 @ 10:10 by Alena Reed APRN) Implantable cardioverter-defibrillator (ICD) at end of battery life History of cardiac pacemaker Acute pharyngitis Tenderness of chest wall Pacemaker Anxiety and depression CHF (congestive heart failure) Dyspnea Chronic systolic heart failure Post-tonsillectomy hemorrhage Pulmonary hypertension Diabetes mellitus Epicondylitis Nonischemic cardiomyopathy SOB (shortness of breath) Edema Palpitations Diastolic dysfunction Hyperlipidemia Iron deficiency anemia History of pulmonary embolus (PE) Hypertensive heart disease Cardiomyopathy Hypertensive disorder Surgical History History of cholecystectomy H/O removal of cyst History of tonsillectomy History of carpal tunnel release of both wrists H/O: hysterectomy History of appendectomy Family History Other Family history of cancer Family history of diabetes mellitus Social History (Updated 03/18/24 @ 08:37 by Dolly Abdul CMA) Smoking Status: Never smoker second hand exposure: No alcohol intake: never counseling provided: none substance use type: denies use current occupational status: other Travel in the last 8 weeks: None household members: spouse housing: house 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 She does rate her pain a 7 out of 10. Patient states that it did finally start to slowly come back to the where now it is interfering with her ability perform activities of daily living such as cooking and cleaning. Patient does state it is still the same pain that she had previously but we did do her last SI injection with and it did provide significant relief and has worked up until the last week or so. Patient has continued her conservative treatment including her combination of baclofen 20 mg and methocarbamol 500 mg. Patient takes the methocarbamol during the day as it does not cause increased fatigue and uses the baclofen at night. Patient is prescribed compounded cream but she states she has not used this as much. Patient has also continued her at home stretching exercise for longer than 12 weeks that was physician guided. Her Robbie has been reviewed and is appropriate. Review of Systems: General: No recent weight changes, no fever, no sleep disturbances Respiratory: No cough, no shortness of air, no recurring pulmonary infections Cardiovascular/peripheral vascular: No chest pain, no palpitations, no edema, no shortness of breath Gastrointestinal: No new onset incontinence, normal bowel movements reported Genitourinary: No new onset incontinence Musculoskeletal: Low back pain, right-sided, right hip pain Psychiatric: [Normal mood/affect] Neurological: [Denies weakness in extremities], [denies balance issues] Pain at rest (0-10 scale): 7 Objective Objective:: Physical Exam: General: Alert and oriented x3, no acute distress, pleasant and cooperative Lungs: Respirations even and unlabored, symmetrical chest expansion Eyes: PERRL Musculoskeletal: Flexion and extension of lumbar [spine] somewhat guarded secondary to pain, [antalgic gait noted] point tenderness along right SI with positive right Mara's, Sara's, Gaenslen's, compression and distraction exam Neurological: Speech clear, no gross sensory deficit Has patient had previous pain injection?: No Conservative treatment options previously tried: Home exercise plan Length of treatment: Longer than 12 weeks Meds Home Medications and Allergies Home Medications ?Medication ?Instructions ?Recorded ?Confirmed ?Type biotin 10,000 mcg capsule 10,000 mcg PO DAILY Supplement 03/15/17 03/31/24 History magnesium chloride 64 mg 400 mg PO DAILY 10/26/22 03/31/24 History (magnesium chloride) tablet coenzyme Q10 200 mg capsule (Co 200 mg PO DAILY 11/07/22 03/31/24 History Q-10) cholecalciferol (vitamin D3) 10 10 mcg PO DAILY 05/15/23 03/31/24 History mcg (400 unit) capsule rosuvastatin 40 mg tablet 20 mg (1/2 x 40 mg) PO DAILY #90 08/16/23 03/31/24 Rx tabs blood sugar diagnostic (Accu-Chek 09/17/23 03/31/24 History Guide test strips) blood-glucose meter (Accu-Chek 09/17/23 03/31/24 History Guide Glucose Meter) furosemide 40 mg tablet 40 mg PO DAILY PRN Fluid 09/17/23 03/31/24 History lancets (Accu-Chek Softclix 09/17/23 03/31/24 History Lancets) pen needle, diabetic 31 gauge x #1,200 ea 09/17/23 03/31/24 History 5/16 (BD Ultra-Fine Short Pen Needle) melatonin 10 mg capsule 10 mg PO HS PRN sleep #30 caps 11/01/23 03/31/24 Rx carvedilol 25 mg tablet See Rx Instructions .Route 11/13/23 03/31/24 Rx .COMPLEX #180 tabs omeprazole 20 mg capsule,delayed See Rx Instructions .Route 11/15/23 03/31/24 Rx release .COMPLEX #180 caps spironolactone 25 mg tablet 25 mg PO DAILY Fluid #90 tabs 01/08/24 03/31/24 Rx methocarbamol 500 mg tablet 500 mg PO TID #90 tabs 02/14/24 03/31/24 Rx tramadol 50 mg tablet 50 mg PO Q6H PRN PAIN #120 tabs 03/03/24 03/31/24 Rx rivaroxaban 20 mg tablet (Xarelto) See Rx Instructions .Route 03/13/24 03/31/24 Rx .COMPLEX #30 tabs sacubitril 49 mg-valsartan 51 mg See Rx Instructions .Route 03/13/24 03/31/24 Rx tablet (Entresto) .COMPLEX #180 tabs buspirone 10 mg tablet See Rx Instructions .Route 04/13/24 Rx .COMPLEX #60 tabs hydroxychloroquine 200 mg tablet See Rx Instructions .Route 04/13/24 Rx .COMPLEX #60 tabs baclofen 20 mg tablet See Rx Instructions .Route 04/27/24 Rx .COMPLEX #120 tabs naproxen 375 mg tablet See Rx Instructions .Route 04/27/24 Rx .COMPLEX #60 tabs sitagliptin 50 mg-metformin ER 500 See Rx Instructions .Route 04/27/24 Rx mg tablet,extended rel 24hr mphase .COMPLEX #30 tabs (Zituvimet XR) hydroxyzine HCl 25 mg tablet See Rx Instructions .Route 05/13/24 Rx .COMPLEX #90 tabs gabapentin 600 mg tablet See Rx Instructions .Route 05/15/24 Rx .COMPLEX #60 tabs ondansetron HCl 4 mg tablet See Rx Instructions .Route 06/01/24 Rx .COMPLEX #30 ea New Prescriptions to Start Prescriptions: Allergies Allergy/AdvReac Type Severity Reaction Status Date / Time prednisone Allergy Unknown Verified 03/31/24 09:21 allergy reaction empagliflozin (From AdvReac Mild Unknown Verified 03/31/24 09:21 Jardiance) allergy reaction dapagliflozin (From Farxiga) AdvReac Cramping Verified 03/31/24 09:21 of the Muscles Assessment and Plan *Assessment and plan (1) Sacroiliitis: Status: Acute Category: Medical Code(s): M46.1 - Sacroiliitis, not elsewhere classified Plan Patient is experiencing worsening pain along the low back and right hip. They did have limited range of motion of the lumbar spine along with point tenderness along right SI joint and a positive right Mara's, Sara's, Gaenslen's, compression and distraction exam. I did discuss with the patient that I do believe they would benefit from right SI injection. Risk and benefits were discussed with the patient and they would like to proceed forward with this option. Patient has tried and failed conservative therapy including continued at home stretching exercise for longer than 12 weeks that was physician guided between injections. Patient has had longstanding chronic sacroiliitis for longer than 6 months. Patient had her last SI injection back in December that did provide 80% relief and has worked over the last 4+ months. I will make sure she does have refills on her methocarbamol and her baclofen. Patient will be scheduled for right SI injection under fluoroscopy. Patient has been instructed to contact the clinic with any concerns before the next appointment. Dr. Rivera has reviewed this note and agrees with this plan of care. This note was dictated using voice recognition software and make contain errors or omissions. All injections are used with Lidocaine or Bupivacaine and Depo Medrol.
[2024-06-10 09:34] VITALS: BP 125/79; PULSE 74; RESP 16; O2SAT 97; BMI 44.1
== END 2024-06-10 23:59 | disposition home or self-care (01) ==
PROVIDERS: PCP Nurse Practitioner Family; Visit Provider Nurse Practitioner Family
DX: M46.1 Sacroiliitis, not elsewhere classified (principal); Z73.89 Other problems related to life management difficulty; Z79.899 Other long term (current) drug therapy
CPT/HCPCS: 99212; G0463

== ENCOUNTER 2024-06-26 13:59 | Outpatient (CLI) | payer BC, SELFPAY ==
[2024-06-26 14:04] LABS: Basophils # 0.1 K/mm3 (0-0.2); Basophils % 0.5 % (0.1-2.0); Eosinophils # 0.8 Kmm3 (0.0-0.4); Eosinophils % 6.4 % (0.1-12.0); Hematocrit 36.6 % (37.0-47.0); Hemoglobin 11.4 g/dL (12.2-16.2); Lymphocytes # 2.3 K/mm3 (0.7-4.5); Lymphocytes % 19.6 % (10-50); Mean Corpuscular HGB Conc 31.1 g/dL (31.8-35.4); Mean Corpuscular Hemoglobin 24.2 pg (27.0-31.2); Mean Corpuscular Volume 77.5 fl (81-99); Mean Platelet Volume 11.1 fl (7.4-10.4); Monocytes # 0.7 K/mm3 (0.1-1.0); Monocytes % 5.9 % (1.7-9.3); Neutrophils # 7.8 K/mm3 (1.8-7.8); Neutrophils % 67.3 % (37.0-80.0); Nucleated Red Blood Cells # 0 10^3/uL; Nucleated Red Blood Cells % 0 %; Platelet Count 387 K/mm3 (142-424); Red Blood Count 4.72 M/mm3 (4.20-5.40); Red Cell Distribution Width 13.7 % (11.5-17.5); Red Cell Distribution Width-SD 38.5 fL; White Blood Count 11.7 K/mm3 (4.8-10.8)
[2024-06-26 14:30] LABS: Albumin Level 4.3 g/dl (3.5-5.0); Chloride 99 mmol/L (98-107); Sodium 134 mmol/L (136-145)
[2024-06-26 14:31] LABS: Potassium 5.7 mmoL/L (3.5-5.1)
[2024-06-26 14:33] LABS: Alanine Aminotransferase 30 U/L (12-78); Albumin/Globulin Ratio 1.7 (1.1-1.8); Alkaline Phosphatase 128 U/L (38-126); Anion Gap 12.7 mEq/L (5-15); Aspartate Amino Transferase 35 U/L (14-36); Bilirubin,Total 0.5 mg/dl (0.2-1.3); Blood Urea Nitrogen 16 mg/dl (7-17); Calcium 9.6 mg/dl (8.4-10.2); Carbon Dioxide 28 mmol/L (22.0-30.0); Cholesterol 128 mg/dl (140-200); Estimated Glomerular Filt Rate 60 ml/min (>60); GFR (African American) 73 ML/MIN (>60); Globulin 2.6 g/dL (1.3-3.2); Glucose 270 mg/dl (74-100); Total Protein,Serum 6.9 g/dl (6.3-8.2); Triglycerides 196 mg/dl (30-150); VLDL Cholesterol 39 mg/dL (0-40)
[2024-06-26 14:34] LABS: Chol/HDL Ratio 2.6 (1-3.5); HDL Cholesterol 49 mg/dl (40-60); Magnesium 1.7 mg/dl (1.6-2.3)
[2024-06-26 14:44] LABS: Creatinine,Urine Random 34 mg/dL (Not Estab.); Direct LDL Cholesterol 53.78 mg/dL (100-129); Microalbumin < 6.000 mg/L (0-16.7)
[2024-06-26 15:09] LABS: Ferritin 6.77 ng/ml (6.24-137)
[2024-06-26 15:41] LABS: Hemoglobin A1C 10.2 % (4.0-6.0)
== END 2024-06-26 23:59 | disposition home or self-care (01) ==
LOC: LAB.DROPOF 13:59
PROVIDERS: PCP Nurse Practitioner Family; Visit Provider Nurse Practitioner Family
DX: E78.5 Hyperlipidemia, unspecified (principal); E05.90 Thyrotoxicosis, unspecified without thyrotoxic crisis or storm; I11.0 Hypertensive heart disease with heart failure; I50.22 Chronic systolic (congestive) heart failure; D50.9 Iron deficiency anemia, unspecified
CPT/HCPCS: 80053; 80061; 82043; 82570; 82728; 83036; 83735; 85025

== ENCOUNTER 2024-07-09 10:11 | Outpatient (POV) | payer BC, SELFPAY ==
[2024-07-09 10:28] VITALS: BP 118/66; PULSE 82; RESP 16; O2SAT 97; BMI 44.1
--- NOTE | 2024-07-09 11:19 | EXP.PAIN.SOA ---
[facility] Disclaimer: The information contained in this section may have been updated after the patient was seen, as this information can be updated by other users. 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 Implantable cardioverter-defibrillator (ICD) at end of battery life History of cardiac pacemaker Acute pharyngitis Tenderness of chest wall Pacemaker Anxiety and depression CHF (congestive heart failure) Dyspnea Chronic systolic heart failure Post-tonsillectomy hemorrhage Pulmonary hypertension Diabetes mellitus Epicondylitis Nonischemic cardiomyopathy SOB (shortness of breath) Edema Palpitations Diastolic dysfunction Hyperlipidemia Iron deficiency anemia History of pulmonary embolus (PE) Hypertensive heart disease Cardiomyopathy Hypertensive disorder Surgical History History of cholecystectomy H/O removal of cyst leg, thumb and knee History of tonsillectomy History of carpal tunnel release of both wrists H/O: hysterectomy History of appendectomy Family History Other Family history of cancer Family history of diabetes mellitus Social History Smoking Status: Never smoker second hand exposure: No alcohol intake: never counseling provided: none substance use type: denies use current occupational status: other Travel in the last 8 weeks?: None household members: spouse housing: house 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 She rates her pain today an 8 out of 10. Patient states it is still the same pain that we saw her last for. Patient states it is just increased and is constant and interfering with her ability perform activities of daily living such as cooking and cleaning. Patient does state that she has even noticed that it is starting to be very bothersome on the left side as well. Patient states that she has not had any falls. She states the pain is worse with certain positions such as prolonged sitting or standing and that she does frequently have to change positions due to the worsening pain. Patient did previously have her first diagnostic SI injection in December that did provide 8 months of relief at 80%. Patient does state that she would like to really get in for repeat injections as they did provide so much improvement. Patient is currently managed with baclofen 20 mg and methocarbamol 500 mg. Patient denies any side effects. She is also prescribed compounded cream. Her Robbie has been reviewed and is appropriate. Review of Systems: General: No recent weight changes, no fever, no sleep disturbances Respiratory: No cough, no shortness of air, no recurring pulmonary infections Cardiovascular/peripheral vascular: No chest pain, no palpitations, no edema, no shortness of breath Gastrointestinal: No new onset incontinence, normal bowel movements reported Genitourinary: No new onset incontinence Musculoskeletal: Low back pain, bilateral hip pain Psychiatric: [Normal mood/affect] Neurological: [Denies weakness in extremities], [denies balance issues] Pain at rest (0-10 scale): 8 Objective Objective:: Physical Exam: General: Alert and oriented x3, no acute distress, pleasant and cooperative Lungs: Respirations even and unlabored, symmetrical chest expansion Eyes: PERRL Musculoskeletal: Flexion and extension of lumbar [spine] somewhat guarded secondary to pain, [antalgic gait noted] point tenderness along bilateral SIs with positive bilateral Mara's, Sara's, Gaenslen's, compression and distraction exam Neurological: Speech clear, no gross sensory deficit Has patient had previous pain injection?: No Conservative treatment options previously tried: Home exercise plan Length of treatment: Longer than 12 weeks Meds Home Medications and Allergies Home Medications ?Medication ?Instructions ?Recorded ?Confirmed ?Type biotin 10,000 mcg capsule 10,000 mcg PO DAILY Supplement 03/15/17 07/09/24 History magnesium chloride 64 mg 400 mg PO DAILY 10/26/22 07/09/24 History (magnesium chloride) tablet rosuvastatin 40 mg tablet 20 mg (1/2 x 40 mg) PO DAILY #90 08/16/23 07/09/24 Rx tabs blood sugar diagnostic (Accu-Chek 09/17/23 07/09/24 History Guide test strips) blood-glucose meter (Accu-Chek 09/17/23 07/09/24 History Guide Glucose Meter) furosemide 40 mg tablet 40 mg PO DAILY PRN Fluid 09/17/23 07/09/24 History lancets (Accu-Chek Softclix 09/17/23 07/09/24 History Lancets) pen needle, diabetic 31 gauge x #1,200 ea 09/17/23 07/09/24 History 5/16 (BD Ultra-Fine Short Pen Needle) carvedilol 25 mg tablet See Rx Instructions .Route 11/13/23 07/09/24 Rx .COMPLEX #180 tabs omeprazole 20 mg capsule,delayed See Rx Instructions .Route 11/15/23 07/09/24 Rx release .COMPLEX #180 caps spironolactone 25 mg tablet 25 mg PO DAILY Fluid #90 tabs 01/08/24 07/09/24 Rx sacubitril 49 mg-valsartan 51 mg See Rx Instructions .Route 03/13/24 07/09/24 Rx tablet (Entresto) .COMPLEX #180 tabs buspirone 10 mg tablet See Rx Instructions .Route 04/13/24 07/09/24 Rx .COMPLEX #60 tabs hydroxychloroquine 200 mg tablet See Rx Instructions .Route 04/13/24 07/09/24 Rx .COMPLEX #60 tabs baclofen 20 mg tablet See Rx Instructions .Route 04/27/24 07/09/24 Rx .COMPLEX #120 tabs ondansetron HCl 4 mg tablet See Rx Instructions .Route 06/01/24 07/09/24 Rx .COMPLEX #30 ea methocarbamol 500 mg tablet 500 mg PO TID #90 tabs 06/10/24 07/09/24 Rx rivaroxaban 20 mg tablet (Xarelto) See Rx Instructions .Route 06/12/24 07/09/24 Rx .COMPLEX #30 tabs sitagliptin 50 mg-metformin ER 500 See Rx Instructions .Route 06/12/24 07/09/24 Rx mg tablet,extended rel 24hr mphase .COMPLEX #30 tabs (Zituvimet XR) naproxen 375 mg tablet See Rx Instructions .Route 06/19/24 07/09/24 Rx .COMPLEX #60 tabs triamcinolone acetonide 0.1 % See Rx Instructions .Route 06/22/24 07/09/24 Rx topical cream .COMPLEX #80 grams gabapentin 600 mg tablet See Rx Instructions .Route 06/26/24 07/09/24 Rx .COMPLEX #60 tabs tramadol 50 mg tablet 50 mg PO Q6H PRN PAIN #120 tabs 06/26/24 07/09/24 Rx dulaglutide 0.75 mg/0.5 mL 0.75 mg (0.5 mL) SQ WEEKLY #2.5 mL 06/30/24 07/09/24 Rx [facility] New Prescriptions to Start Prescriptions: Allergies Allergy/AdvReac Type Severity Reaction Status Date / Time prednisone Allergy Unknown Verified 06/26/24 08:48 allergy reaction empagliflozin (From AdvReac Mild Unknown Verified 06/26/24 08:48 Jardiance) allergy reaction dapagliflozin (From Farxiga) AdvReac Cramping Verified 06/26/24 08:48 of the Muscles Assessment and Plan *Assessment and plan (1) Sacroiliitis: Status: Acute Category: Medical Code(s): M46.1 - Sacroiliitis, not elsewhere classified Plan Patient is experiencing worsening pain along the low back and bilateral hips. They did have limited range of motion of the lumbar spine along with point tenderness along bilateral SI joints and a positive bilateral Mara's, Sara's, Gaenslen's, compression and distraction exam. I did discuss with the patient that I do believe they would benefit from bilateral SI injections. Risk and benefits were discussed with the patient and they would like to proceed forward with this option. Patient has tried and failed conservative therapy including oral medication, heat and ice, topicals, physical therapy and continued at home stretching exercise for longer than 12 weeks that was physician guided. Patient has already had 1 diagnostic SI injection in December that did provide 80% improvement and lasted for 8 months. We will plan on doing bilateral SI injections at today's visit as she did have increased pain now even on the left side. Patient does have a longstanding history of chronic sacroiliitis and has gotten beneficial relief with the previous SI injection. Patient was counseled that she may be very beneficial candidate of an SI fusion if she does again get significant relief with these injections. We will follow-up with this at future visits. This will be a diagnostic injection with less than 1 mL solution to be injected. Patient will be scheduled for bilateral SI injections under fluoroscopy. Patient has been instructed to contact the clinic with any concerns before the next appointment. Dr. Rivera has reviewed this note and agrees with this plan of care. This note was dictated using voice recognition software and make contain errors or omissions. All injections are used with Lidocaine or Bupivacaine and dexamethasone.
== END 2024-07-09 23:59 | disposition home or self-care (01) ==
LOC: SC.PAIN 10:12
PROVIDERS: PCP Nurse Practitioner Family; Visit Provider Nurse Practitioner Family
DX: M46.1 Sacroiliitis, not elsewhere classified (principal); Z73.89 Other problems related to life management difficulty; Z79.899 Other long term (current) drug therapy
CPT/HCPCS: 99212; G0463

== ENCOUNTER 2024-07-17 07:51 | Outpatient (CLI) | payer BC, SELFPAY ==
--- NOTE | 2024-07-17 07:53 | FL_ITS ---
FINAL REPORT CLINICAL HISTORY: DYSPHAGIA fluoro time: .55 137.17 mgy FINDINGS: BARIUM SWALLOW HISTORY: Dysphagia. TECHNIQUE: The patient ingested barium contrast. Spot and overhead films were performed. A total of 34 images were saved. FINDINGS: There is gastroesophageal reflux to the thoracic inlet. There is mild esophageal dysmotility. No changes of esophagitis are evident. There is no hiatal hernia identified. 13 mm barium tablet is delayed in the distal esophagus and does not past during the examination. This is consistent with narrowing, which is likely more significant than the other images indicate. FLUOROSCOPY TIME: 0.55 minutes Radiation exposure in Reference air Kerma: 137.17 mgy IMPRESSION: Esophageal dysmotility. Gastroesophageal reflux. 13 mm barium tablet is delayed in the distal esophagus and does not pass during the examination. This is consistent with narrowing, which is likely more significant than indicated on the other images. Reviewed, Interpreted and Dictated by Kriss Davis MD Transcribed by Re Hanna PA-C Authenticated and [facility]
[2024-07-17] MEDS: BARIUM SULFATE (E-Z-HD 340GM);135ML BOTTLE 135 ML PO (08:24)
[2024-07-17] MEDS: BARIUM SULFATE(LIQUID E-Z-PAQUE);355ML BOTTLE 355 ML PO (08:24)
[2024-07-17] MEDS: E-Z-GASII EFFERVESCENT GRANULES;1PK 1 EACH PO (08:24)
== END 2024-07-17 23:59 | disposition home or self-care (01) ==
LOC: RAD 07:51
PROVIDERS: PCP Nurse Practitioner Family; Visit Provider Physician Assistant
DX: K21.9 Gastro-esophageal reflux disease without esophagitis (principal); K22.89 Other specified disease of esophagus; K22.2 Esophageal obstruction
CPT/HCPCS: 74220

== ENCOUNTER 2024-07-28 09:51 | Outpatient (CLI) | payer BC, SELFPAY ==
[2024-07-28 13:03] LABS: Basophils # 0.1 K/mm3 (0-0.2); Basophils % 0.5 % (0.1-2.0); Eosinophils # 0.4 Kmm3 (0.0-0.4); Eosinophils % 3.9 % (0.1-12.0); Hematocrit 36.2 % (37.0-47.0); Hemoglobin 10.9 g/dL (12.2-16.2); Immature Granulocytes # 0.02 10^3uL; Immature Granulocytes % 0.2 %; Lymphocytes % 18.6 % (10-50); Mean Corpuscular HGB Conc 30.1 g/dL (31.8-35.4); Mean Corpuscular Hemoglobin 23.2 pg (27.0-31.2); Monocytes # 0.7 K/mm3 (0.1-1.0); Monocytes % 6.3 % (1.7-9.3); Neutrophils # 7.5 K/mm3 (1.8-7.8); Neutrophils % 70.5 % (37.0-80.0); Nucleated Red Blood Cells # 0 10^3/uL; Nucleated Red Blood Cells % 0 %; Platelet Count 373 K/mm3 (142-424); Red Cell Distribution Width-SD 38.7 fL; White Blood Count 10.6 K/mm3 (4.8-10.8)
[2024-07-28 13:59] LABS: Alanine Aminotransferase 35 U/L (12-78); Albumin Level 4.5 g/dl (3.5-5.0); Albumin/Globulin Ratio 1.4 (1.1-1.8); Alkaline Phosphatase 139 U/L (38-126); Anion Gap 16.1 mEq/L (5-15); Aspartate Amino Transferase 42 U/L (14-36); Bilirubin,Total 0.7 mg/dl (0.2-1.3); Blood Urea Nitrogen 16 mg/dl (7-17); Calcium 9.8 mg/dl (8.4-10.2); Carbon Dioxide 26 mmol/L (22.0-30.0); Chloride 101 mmol/L (98-107); Estimated Glomerular Filt Rate 60 ml/min (>60); GFR (African American) 73 ML/MIN (>60); Globulin 3.3 g/dL (1.3-3.2); Glucose 196 mg/dl (74-100); Potassium 5.1 mmoL/L (3.5-5.1); Sodium 138 mmol/L (136-145); Total Protein,Serum 7.8 g/dl (6.3-8.2)
[2024-07-28 14:43] LABS: Ferritin 9.15 ng/ml (6.24-137)
[2024-07-29 18:43] LABS: Cortisol,AM 5.1 ug/dL (6.2-19.4)
== END 2024-07-28 23:59 | disposition home or self-care (01) ==
LOC: LAB.DROPOF 07-29 11:13
PROVIDERS: PCP Nurse Practitioner Family; Visit Provider Nurse Practitioner Family
DX: D50.9 Iron deficiency anemia, unspecified (principal); E11.9 Type 2 diabetes mellitus without complications; R79.89 Other specified abnormal findings of blood chemistry
CPT/HCPCS: 80053; 82533; 82728; 85025

== ENCOUNTER 2024-08-11 09:33 | Day surgery (SDC) | payer BC, SELFPAY ==
[2024-08-11 09:47] VITALS: BP 103/61; PULSE 69; RESP 16; TEMP 36.8; O2SAT 97; BMI 43.4
[2024-08-11] MEDS: BUPIVACAINE 0.25% 10ML INJ 25 MG IJ (10:11)
[2024-08-11 10:12] VITALS: BP 90/63; PULSE 86; RESP 16; O2SAT 96
[2024-08-11] MEDS: LIDOCAINE 1% 5ML PF VIAL 5 ML (10:12)
[2024-08-11] MEDS: DEXAMETHASONE 10MG/ML 1ML VIAL 10 MG (10:12)
[2024-08-11 10:13] VITALS: BP 103/61; PULSE 69; RESP 18; O2SAT 97
[2024-08-11 10:14] VITALS: BP 103/61; PULSE 69; RESP 18; O2SAT 97
--- NOTE | 2024-08-11 10:18 | P.PCN_ITS ---
Procedure Date: 08/11/24 Time: 10:00 Anesthesiologist:: Gustavo Ahumada CRNA Complications:: None Pre-procedure Diagnosis:: Bilateral sacroiliitis Post-procedure Diagnosis:: Same Indications for Procedure:: Patient very pleasant 43-year-old female comes clinic today for repeat bilateral sacroiliac joint injection cortisone local anesthetic. Patient describes low lumbar back pain off the midline bilaterally. Bilateral posterior hip pain. Difficulty with ambulation due to bilateral posterior hip pain. Difficulty transitioning from sitting to standing. She has extreme point tenderness over the bilateral sacroiliac joints. She rates her pain 6/10. Procedure Details:: Procedure: Bilateral sacroiliac joint injections under fluoroscopy Informed consent was obtained and the risks and benefits of the procedure were explained to the patient.~ The patient was taken to the procedure room and noninvasive monitors were placed including a noninvasive blood pressure cuff and pulse oximeter.~ The patient was placed prone on the procedure table. Both hips were cleansed using Betadine as a cleansing solution. C-arm fluoroscopy was used to view the right sacroiliac joint.~ The skin and subcutaneous tissues were anesthetized using lidocaine 1.5% and a 25-gauge needle.~ After this, a 22-gauge spinal needle was inserted under fluoroscopic guidance into the inferior aspect of the right sacroiliac joint.~ Omnipaque dye was injected and good spread was seen throughout the joint.~ After this, approximately 5 mL of bupivacaine, 0.25% and Depo-Medrol, 40 mg was incrementally injected into the right sacroiliac joint. We then moved to the left sacroiliac joint.~ The skin and subcutaneous tissues were anesthetized using lidocaine 1.5% and a 25-gauge needle.~ After this, a 22- gauge spinal needle was inserted under fluoroscopic guidance into the inferior aspect of the left sacroiliac joint.~ Omnipaque dye was injected and good spread was seen throughout the joint. After this, approximately 5 mL of bupivacaine, 0.25% and Depo-Medrol, 40 mg was incrementally injected into the left sacroiliac joint.~ The patient tolerated the procedure well with no complications. The patient was observed in the Pain Clinic and then was discharged home neurologically intact. Plan and Disposition:: Patient was discharged without incident.
== END 2024-08-11 10:12 | disposition home or self-care (01) ==
PROVIDERS: PCP Nurse Practitioner Family; Visit Provider Nurse Anesthetist, Certified Registered
DX: M46.1 Sacroiliitis, not elsewhere classified (principal); E78.5 Hyperlipidemia, unspecified; F41.9 Anxiety disorder, unspecified; E11.9 Type 2 diabetes mellitus without complications; F32.A Depression, unspecified; I42.8 Other cardiomyopathies; I50.22 Chronic systolic (congestive) heart failure; I11.0 Hypertensive heart disease with heart failure; Z88.8 Allergy status to other drugs, medicaments and biological substances; Z79.899 Other long term (current) drug therapy
CPT/HCPCS: G0260; J0665; J1100; J2003

== ENCOUNTER 2024-08-21 09:27 | Outpatient (CLI) | payer BC, SELFPAY ==
--- NOTE | 2024-08-21 09:29 | NM_ITS ---
FINAL REPORT TECHNIQUE: Sequential anterior images were obtained after the ingestion of 2 whole scrambled eggs, 2 pieces of toast, and 1 cup of water radiolabeled with 0.54 mCi technetium 99M sulfur colloid. CLINICAL HISTORY: NAUSEA FINDINGS: GASTRIC EMPTYING SCAN Static images show normal emptying of the stomach into the small bowel. Based on the time activity curve, the estimated half-emptying time is 182 minutes which is abnormally prolonged. IMPRESSION: Delayed gastric emptying study. Reviewed, Interpreted and Dictated by Kriss Davis MD Transcribed by Erum Sun Authenticated and [facility]
--- OUTSIDE RECORDS SUMMARY | 2024-08-21 09:29 | XMS_ITS | Encounter Summary ---
Author Organization [employer] Address [address] [place] [address] Care Team Providers Care Upstairs Maid Name Role Phone Unavailable Primary Care Provider Unavailabl e Encounter Details Date Type Department Care Team (Late st Contact Info) Description 04/08/2018 Transcribed Document [facility] [place] [address] [place] [address] ProviderSommer MD [address] [place] [address] Social History Tobacco Use Types Packs/Day Years Used Date Smoking Tobacco: Never Assessed Comments Unknown Sex and Gender Information Value Date Recorded Sex Assigned at Not on file Legal Sex Female 1:18 PM CDT Gender Identity Not on file Sexual Orientation Not on file documented as of this encounter Miscellaneous Notes * Cerner Conversion Note - Sommer ProviderMD - 04/08/2018 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 BRING CD DISC TO APPT Discharge Instructions: Diet after Discharge: Resume usual diet as tolerated Activity after Discharge: As tolerated, Rest and relax today, No strenuous activities, No heavy lifting over 10 pounds Driving after Discharge: Other: NO DRIVING FOR 24 HRS Showering/Bathing: No tub bathing, soaking, or swimming Wound/Incision Care after Discharge: Keep operative site/wound site clean and dry, Change dressing with dry dressing daily and as needed, Other: CALL DR IF ANY REDNESS DRAINAGE OR FEVER DEVELOPS Immunizations Documented During Stay: No Immunizations Found Heart Failure Discharge Instructions (if any): Stroke Related Discharge Instructions (if any): Warfarin Related Discharge Instructions (if any): Final Medication List: Other Medications biotin 24[address] Oral Every Day. carvedilol (carvedilol 25 mg oral tablet) 1 Tablet(s) Oral Two Times A Day. gabapentin (gabapentin 300 mg oral capsule) Oral At Bedtime. hydroxychloroquine (Plaquenil) 200 Milligram(s) Oral Two Times A Day. hydrOXYzine (hydrOXYzine hydrochloride 25 mg oral tablet) Oral Two Times A Day. levothyroxine (levothyroxine 25 mcg (0.025 mg) oral tablet) 1 Tablet(s) Oral Every Day. metFORMIN 2 tabs Oral At Bedtime. rivaroxaban (Xarelto 20 mg oral tablet) 1 Tablet(s) Oral Every Day. sacubitril-valsartan (Entresto 49 mg-51 mg oral tablet) 1 Tablet(s) Oral Two Times A Day. simvastatin (simvastatin 20 mg oral tablet) 1 Tablet(s) Oral Every Day. SITagliptin (Januvia) 100 Milligram(s) Oral Every Day. spironolactone (spironolactone 25 mg oral tablet) 0.5 Tablet(s) Oral Every Day. traMADol (traMADol 50 mg oral tablet) 1 Tablet(s) Oral Every 4 Hours as needed as needed for pain. Patient Allergies: No Known Medication Allergies Medication Instructions: Take your medications faithfully. Do NOT skip medication. Do NOT stop taking medications without the direction of a physician. Carry a list of your medications with you at all times, and take this medication list with you to your first follow up visit. Report any side effects. Avoid herbal remedies unless discussed with your physician. As part of your treatment plan, your physician may have prescribed a limited course of a controlled substance. This medication may be given to help people with moderate or severe pain or for other medical conditions, but there are risks involved with treatment. Common side effects may include nausea, constipation, drowsiness, sweating, itching, dry mouth, and rash. More serious side effects may include cognitive and motor impairment, like problems with thinking, concentrating, alertness, and movement (e.g. slowed reflexes), and driving and operating heavy machinery can be dangerous. It is important for you to talk to your physician if you have these side effects or questions. These controlled substances can produce physical dependence and be habit-forming if taken for an extended period of time, which means that the body has gotten used to them and may experience withdrawal symptoms if they are abruptly stopped. Withdrawal symptoms can include runny nose, sweating, goose bumps, diarrhea, abdominal cramping, rapid heartbeat, difficulty sleeping, and nervousness. Patient education materials: Incision Care, Adult An incision is a surgical cut that is made through your skin. Most incisions are closed after surgery. Your incision may be closed with stitches (sutures), winnie, skin glue, or adhesive strips. You may need to return to your health care provider to have sutures or winnie removed. This may occur several days to several weeks after your surgery. The incision needs to be cared for properly to prevent infection. How to care for your incision Incision care ??? Follow instructions from your health care provider about how to take care of your incision. Make sure you: ? Wash your hands with soap and water before you change the bandage (dressing). If soap and water are not available, use hand rd scientist. ? Change your dressing as told by your health care provider. ? Leave sutures, skin glue, or adhesive strips in place. These skin closures may need to stay in place for 2 weeks or longer. If adhesive strip edges start to loosen and curl up, you may trim the loose edges. Do not remove adhesive strips completely unless your health care provider tells you to do that. ??? Check your incision area every day for signs of infection. Check for: ? More redness, swelling, or pain. ? More fluid or blood. ? Warmth. ? Pus or a bad smell. ??? Ask your health care provider how to clean the incision. This may include: ? Using mild soap and water. ? Using a clean towel to pat the incision dry after cleaning it. ? Applying a cream or ointment. Do this only as told by your health care provider. ? Covering the incision with a clean dressing. ??? Ask your health care provider when you can leave the incision uncovered. ??? Do nottake baths, swim, or use a hot tub until your health care provider approves. Ask your health care provider if you can take showers. You may only be allowed to take sponge baths for bathing. Medicines??? If you were prescribed an antibiotic medicine, cream, or ointment, take or apply the antibiotic as told by your health care provider. Do not stop taking or applying the antibiotic even if your condition improves. ??? Take zdlz-obo-ltzqnkj and prescription medicines only as told by your health care provider. General instructions??? Limit movement around your incision to improve healing. ? Avoid straining, lifting, or exercise for the first month, or for as long as told by your health care provider. ? Follow instructions from your health care provider about returning to your normal activities. ? Ask your health care provider what activities are safe. ??? Protect your incision from the sun when you are outside for the first 6 months, or for as long as told by your health care provider. Apply sunscreen around the scar or cover it up. ??? Keep all follow-up visits as told by your health care provider. This is important. Contact a health care provider if: ??? Your have more redness, swelling, or pain around the incision. ??? You have more fluid or blood coming from the incision. ??? Your incision feels warm to the touch. ??? You have pus or a bad smell coming from the incision. ??? You have a fever or shaking chills. ??? You are nauseous or you vomit. ??? You are dizzy. ??? Your sutures or winnie come undone. Get help right away if: ??? You have a red streak coming from your incision. ??? Your incision bleeds through the dressing and the bleeding does not stop with gentle pressure. ??? The edges of your incision open up and separate. ??? You have severe pain. ??? You have a rash. ??? You are confused. ??? You faint. ??? You have trouble breathing and a fast heartbeat. This information is not intended to replace advice given to you by your health care provider. Make sure you discuss any questions you have with your health care provider. Document Released: 08/31/2005 Document Revised: 10/19/2016 Document Reviewed: 08/29/2016 [employer] Interactive Patient Education ? 2017 [employer] What You Need to Know About IV Contrast Material IV contrast material is most often a fluid that is used with some imaging tests. Contrast material is injected into your body through a vein to help your health care providers see your organs and tissues more clearly. It may be used with: ??? X-ray. ??? MRI. ??? CT. ??? Ultrasound. Contrast material is used when your health care providers need a detailed look at organs, tissues, or blood vessels that may not show up with the standard test. IV contrast may be used for imaging tests that examine: ??? Muscles, skin, and fat. ??? Breasts. ??? Brain. ??? Digestive tract. ??? Heart. ??? Liver. ??? Lungs and many other internal organs. What are the risks of using IV contrast material? The risks of using IV contrast material include: ??? Headache. ??? Itching, skin rash, and hives. ??? Allergic reactions. ??? Nausea and vomiting. ??? Wheezing or difficulty breathing. ??? Abnormal heart rate. ??? Blood pressure changes. ??? Throat swelling. ??? Kidney damage. These complications are more likely to occur in people who: ??? Have kidney failure. ??? Have liver problems. ??? Have certain heart problems, including: ? Heart failure. ? Heart attack. ? Heart infection. ? Heart valve problems. ??? Abuse alcohol. ??? Have allergies or asthma. ??? Are dehydrated. ??? Have sickle cell anemia or similar problems. ??? Have had trouble with IV contrast material in the past. ??? Take certain medicines, such as: ? Metformin. ? NSAIDs. ? Beta blockers. ? Interleukin-2. How do I prepare for my test with IV contrast material? Follow instructions from your health care provider about eating or drinking restrictions. ??? Ask your health care provider about changing or stopping your regular medicines. This is especially important if you are taking diabetes medicines or blood thinners. ??? Tell your health care provider about: ? Any previous illnesses, surgeries, or pre-existing medical conditions. ? Whether you are or may be . ? Whether you are . Most contrast agents are safe for use in women. ??? You may have a physical exam to determine any potential risks. ??? Ask if you will be given a medicine (sedative) to help you relax during the procedure. If so, plan to have someone take you home after test. What happens during the test with IV contrast material? You may be given a sedative to help you relax. ??? A needle will be inserted into one of your veins to administer the IV contrast material. ??? You may feel warmth or flushing as the material enters your bloodstream. ??? You may have a metallic taste in your mouth for a few minutes. ??? The needle may cause some discomfort and bruising. ??? After the contrast material is in your body, the imaging test will be done. The procedure may vary among health care providers and hospitals. What happens after the test with IV contrast material? You may be asked to drink water or other fluids to wash (flush) the contrast material out of your body. ??? Do notdrive for 24 hours if you received a sedative. ??? It is your responsibility to get your test results. Ask your health care provider or the department performing the test when your results will be ready. When should I seek medical care? Seek medical care if: ??? You feel nauseous. ? Your skin becomes itchy or breaks out in a rash or hives. When should I seek immediate medical care? Get help right away if: ??? You have an abnormal heart rhythm. ??? You have trouble breathing. ??? You have: ? Chest pain. ? Pain in your back, neck, arm, jaw, or stomach. ? Both nausea and sweating. ??? Your throat swells. ??? You start shaking and cannot stop. These symptoms may represent a serious problem that is an emergency. Do not wait to see if the symptoms will go away. Get medical help right away. Call your local emergency services (911 in the [place] Do not drive yourself to the hospital. This information is not intended to replace advice given to you by your health care provider. Make sure you discuss any questions you have with your health care provider. Document Released: 01/30/2010 Document Revised: 10/04/2016 Document Reviewed: 10/19/2015 [employer] Interactive Patient Education ? 2017 [employer] Myelogram, Care After Introduction Refer to this sheet in the next few weeks. These instructions provide you with information about caring for yourself after your procedure. Your health care provider may also give you more specific instructions. Your treatment has been planned according to current medical practices, but problems sometimes occur. Call your health care provider if you have any problems or questions after your procedure. What can I expect after the procedure? After the procedure, it is common to have:??? Soreness at your injection site. ??? A mild headache. Follow these instructions at home: ??? Drink enough fluid to keep your urine clear or pale yellow. This will help flush out the dye (contrast material) from your spine. ??? Rest as told by your health care provider. Lie flat with your head slightly raised (elevated) to reduce the risk of headache. ??? Do notbend, lift, or do any strenuous activity for 24?48 hours or as told by your health care provider. ??? Take affd-yqo-igiufnq and prescription medicines only as told by your health care provider. ??? Take care of and remove your bandage (dressing) as told by your health care provider. ??? Bathe or shower as told by your health care provider. Contact a health care provider if: ??? You have a fever. ??? You have a headache that lasts longer than 24 hours. ??? You feel nauseous or vomit. ??? You have a stiff neck or numbness in your legs. ??? You are unable to urinate or have a bowel movement. ??? You develop a rash, itching, or sneezing. Get help right away if: ??? You have new symptoms or your symptoms get worse. ??? You have a seizure. ??? You have trouble breathing. This information is not intended to replace advice given to you by your health care provider. Make sure you discuss any questions you have with your health care provider. Document Released: 03/09/2016 Document Revised: 07/19/2016 Document Reviewed: 11/24/2015 ? 2017 [employer] Myelography Myelography is an X-ray exam in which a special dye (contrast medium) is used to examine your spinal cord and nerve roots. The contrast medium helps to illuminate the spinal structures under examination. The exam is used to detect spinal cord problems, including spinal cord injury, disk ruptures, cysts, and tumors. LET YOUR HEALTH CARE PROVIDER KNOW ABOUT: ??? Any allergies you have. ??? All medicines you are taking, including vitamins, herbs, eyedrops, and zodq-uiw-ipvainj medicines and creams. ??? Previous problems you or members of your family have had with the use of anesthetics or contrast media. ??? Any blood disorders you have. ??? Other health problems you have. RISKS AND COMPLICATIONS Generally, myelography is a safe procedure. However, as with any surgical procedure, complications can occur. Possible complications associated with myelography include: ??? Spinal fluid infection. ??? Allergic reaction to the contrast medium. ??? Loss of spinal fluid (can lead to severe headaches). ??? Seizures (rare). BEFORE THE PROCEDURE You will need to arrange for someone to drive you home after the procedure. PROCEDURE ??? You will be positioned face down on a table. ??? Medicine may be given to you to help you relax. ??? A numbing medicine will be applied to the insertion site. ??? A needle will be inserted between your vertebrae. An imaging technique called fluoroscopy will be used to help your health care provider see the needle between the bones of your spine and guide it into the sac that surrounds your spinal cord and nerves (dura). ??? Contrast medium will be injected into the dura. ??? The table you lie on may be tilted in different directions to move the contrast medium around the dura. ??? A series of X-rays or computed tomography (CT) will be done. AFTER THE PROCEDURE After your procedure, you will be taken to a recovery area where you will lie flat with your head in an elevated position for a few hours before being discharged. This reduces the risk of a severe headache. This information is not intended to replace advice given to you by your health care provider. Make sure you discuss any questions you have with your health care provider. Document Released: 10/04/2004 Document Revised: 03/04/2015 Document Reviewed: 11/24/2015 [employer] Interactive Patient Education ? 2017 [employer] CIGARETTE SMOKING: The facts are clear, cigarette smoking will shorten your life. Smoking can cause many illnesses along the way. As a healthcare provider, we recommend that you stop smoking. Assistance with quitting is available by contacting 6-605-LMEK-NOW. This is a free resource providing counseling, support, and referral. Or you may contact your personal physician. 4 WAYS TO GET AHEAD OF SEPSIS SEPSIS is a MEDICAL EMERGENCY. Time matters! Infections put you and your family at risk for a life-threatening condition called sepsis. Sepsis is the body???s extreme response to an infection. It is life-threatening, and without timely treatment, sepsis can rapidly lead to tissue damage, organ failure, and . Sepsis happens when an infection you already have???in your skin, lungs, urinary tract or somewhere else???triggers a chain reaction throughout your body. 1 PREVENT INFECTIONS Take good care of chronic conditions. Talk to your doctor about getting the recommended vaccines. 2 PRACTICE GOOD HYGIENE Wash your hands frequently. Keep cuts or open sores clean and covered until they are healed. 3 KNOW THE SYMPTOMS Confusion or disorientation Shortness of breath High heart rate Fever, shivering, or feeling very cold Extreme pain or discomfort Clammy or sweaty skin 4 ACT FAST Get medical care IMMEDIATELY if you suspect sepsis or if you have an infection that???s not getting better or is getting worse. To learn more about sepsis and how to prevent infections, visit www.cdc.gov/sepsis. STROKE is an EMERGENCY [employer] ACT F.A.S.T! FACE ?? Facial droop ?? Uneven smile ARM ?? Arm numbness ?? Arm weakness SPEECH ?? Slurred speech ?? Difficulty speaking or understanding TIME ?? Call 911 and get to the hospital immediately Have the ambulance go to the nearest stroke center. STROKE Risk Factors High blood pressure High cholesterol Heart Disease Diabetes Smoking Heavy alcohol use Physical inactivity and obesity Atrial Fibrillation (irregular heartbeat) Family history of stroke Reminder: Be sure to sign up for the [employer] patient portal, which gives you 24/7 access to your medical information ??? including these discharge instructions ??? using your computer, smartphone, or tablet. Just go to [employer] to get started. Questions? Call . [facility] would like to thank you for allowing us to assist you with your healthcare needs. NANCY Trujillo RACHEL A, (or inbound sales representative) have received the above patient education materials/instructions and have verbalized understanding: Patient Signature _ Date/Time Patient Metalworker Signature (if needed) Date/Time Clinician/Hospital Metalworker Signature (if needed) Date/Time documented in this encounter Plan of Treatment Not on file documented as of this encounter Visit Diagnoses Not on filedocumented in this encounter
--- OUTSIDE RECORDS SUMMARY | 2024-08-21 09:29 | XMS_ITS | Encounter Summary ---
Author Organization [employer] Address [address] [place] [address] Care Team Providers Care Ingot Supervisor Name Role Phone Unavailable Primary Care Provider Unavailabl e Encounter Details Date Type Department Care Team (Late st Contact Info) Description 04/08/2018 Transcribed Document [facility] [place] [address] [place] [address] ProviderSommer MD [address] [place] [address] Social History Tobacco Use Types Packs/Day Years Used Date Smoking Tobacco: Never Assessed Comments Unknown Sex and Gender Information Value Date Recorded Sex Assigned at Not on file Legal Sex Female 1:18 PM CDT Gender Identity Not on file Sexual Orientation Not on file documented as of this encounter Miscellaneous Notes * Cerner Conversion Note - Sommer ProviderMD - 04/08/2018 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 The patient tolerated the procedure well. Cervical myelogram was then performed. CT and report to follow. documented in this encounter Plan of Treatment Not on file documented as of this encounter Visit Diagnoses Not on filedocumented in this encounter
--- OUTSIDE RECORDS SUMMARY | 2024-08-21 09:29 | XMS_ITS | Referral Summary ---
Author Organization [employer] Address [address] [place] [address] Care Team Providers Care Tax Audit Manager Name Role Phone Unavailable Primary Care Provider Unavailabl e Social History Tobacco Use Types Packs/Day Years Used Date Smoking Tobacco: Never Assessed Comments Unknown Sex and Gender Information Value Date Recorded Sex Assigned at Not on file Legal Sex Female 1:18 PM CDT Gender Identity Not on file Sexual Orientation Not on file Plan of Treatment Not on file
--- OUTSIDE RECORDS SUMMARY | 2024-08-21 09:29 | XMS_ITS | Encounter Summary ---
Author Organization [employer] Address [address] [place] [address] Care Team Providers Care Pressfitter Name Role Phone Unavailable Primary Care Provider Unavailabl e Encounter Details Date Type Department Care Team (Late st Contact Info) Description 04/08/2018 Transcribed Document [facility] [place] [address] [place] [address] ProviderSommer MD [address], [place] [address] Social History Tobacco Use Types Packs/Day Years Used Date Smoking Tobacco: Never Assessed Comments Unknown Sex and Gender Information Value Date Recorded Sex Assigned at Not on file Legal Sex Female 1:18 PM CDT Gender Identity Not on file Sexual Orientation Not on file documented as of this encounter Miscellaneous Notes * Cerner Conversion Note - Sommer ProviderMD - 04/08/2018 8:35 AM FIRE EXTINGUISHER TESTER PAT / Pre Procedure Adult Entered On: 04/08/2018 8:43 EST Performed On: 04/08/2018 8:35 EST by LY LIMA RN General Info Arrived From : Home Mode of Arrival on Unit : Ambulatory Patient Arrival Date/Time : 04/08/2018 8:05 EST Legal Guardian : Spouse Support Person/Pt Rep Name : PJ Support Person/Pt Rep Contact Information : [phone] Want Family/Rep/Phys Notified of Admit : No Emergency Contact #1 : NA Emergency Contact #1 Phone Number : NA Emergency Contact #1 Relationship : NA Emergency Contact #2 : NA Emergency Contact #2 Phone Number : NA Emergency Contact #2 Relationship : NA Information Obtained From : Patient Primary Language : Sudanese Communication Barrier : None LY LIMA RN - 04/08/2018 8:35 EST Height and Weight, Clinical Dosing Height Source : Stated Height Entry Format : [place] Height, Feet : 5 ft(Converted to: 152 cm, 60 Inch) Height, Inches : 3 Inch(Converted to: 0 ft 3 Inch, 7.62 cm) Clinical Height : 160.02 cm Weight Source : Standing scale Weight Entry Format : [place] Clinical Dosing Weight : 114.09 kg Weight, Pounds : 251 lb Body Surface Area (BSA) : 2.13 m2 Body Mass Index : 44.6 kg/m2 (>HHI) [place] Body Weight : 52 kg LY LIMA RN - 04/08/2018 8:35 EST Health Histories Smoking Status : Never (less than 100 in lifetime; none in last 30 days) Smokeless Tobacco Status : Never LY LIMA RN - 04/08/2018 8:35 EST Social History (As Of: 04/08/2018 08:43:35 EST) Tobacco: Never (less than 100 in lifetime) Smoking Status. (Last Updated: 04/08/2018 08:37:19 EST by LY LIMA RN) Alcohol: Alcohol Use History No. (Last Updated: 04/08/2018 08:37:24 EST by LY LIMA RN) Anesthesia/Transfusion History Family History of Anesthesia Reaction : No prior transfusion(s) Blood Transfusion Acceptable to Patient : Yes Transfusion History : Prior anesthesia without reaction Family History of Anesthesia Reaction : None LY LIMA RN - 04/08/2018 8:35 EST Infectious Disease History Infectious Disease History : Chicken pox/Shingles Fever/Chills Last 48 Hours : No Travel To Regions with Travel Advisories : No Travel Outside [place] Within Last 30 Days : No Contact With Traveler to Advisory Region : No Tuberculosis Symptoms : None LY LIMA RN - 04/08/2018 8:35 EST Advance Directive Patient has Advance Directive *Q : Yes, Advance Directive not with the patient Advance Directive Type : Living will Copy Advance Directive Verified/on Chart : No LY LIMA RN - 04/08/2018 8:35 EST Vital Measurements Temperature Source : Temporal artery scanning Temperature Mode : Fahrenheit Temperature, Fahrenheit : 97 Deg F Clinical Temperature, C : 36.1 Deg C Heart Rate, Apical : 89 bpm Pulse Rhythm : Regular Respiratory Rate : 16 Breaths/Min Blood Pressure Location : Arm, right upper Blood Pressure Source : Non-Invasive BP Device Blood Pressure Position : Sitting Systolic Blood Pressure : 129 mmHg Diastolic Blood Pressure : 60 mmHg Oxygen Saturation : 97 % Oxygen Therapy Mode : Room air LY LIMA RN - 04/08/2018 8:35 EST Sleep Apnea Risk Assmt Hx of Obstructive Sleep Apnea Diagnosis : No Snore Loudly : No Tired, Fatigued, or Sleepy During Day : No Observed Stopping Breathing During Sleep : No Have/Are Being Treated for Hypertension : No STOP Sleep Apnea Risk Level Score : 0 STOP Sleep Apnea Risk Level : Low BMI Greater Than 35 kg/m2 : Yes Age over 50 Years Old : No Gender Male : No Neck Circumference Measured (cms) : 0 cm STOP-BANG Sleep Apnea Risk Level Score : 1 Neck Circumference Greater Than 40 cm : No LY LIMA RN - 04/08/2018 8:35 EST Glen Scale [place] Sensory Perception : No impairment [place] Moisture : Rarely moist [place] Activity : Walks frequently [place] Mobility : No limitation Glen Nutrition : Excellent [place] Friction and Shear : No apparent problem Glen Score : 23 LY LIMA RN - 04/08/2018 8:35 EST Psychosocial History Does Someone Depend on You for Care? : No Do You Have a History of the Following? : Anxiety Currently in Unsafe Situation : No Tried to Harm Yourself in the Past? : No Thoughts of Harming/Killing Yourself : No LY LIMA RN - 04/08/2018 8:35 EST Fall Risk Scales ABCs Fall Injury Risk Identification : Coagulation ABC Fall Injury Risk : Moderate to high injury risk [place] Hx Falls Immediate/Within 3 Months : No [place] Secondary Diagnosis : No [place] Use of Ambulatory Aid : None [place] IV Therapy or IV Access : No [place] Gait/Transferring : Normal, bedrest, immobile [place] Mental Status : Oriented to own ability [place] Fall Scale Risk Level : 25-45 Medium Risk [place] Fall Interventions : Adequate lighting, Assistive devices within reach, Bed in low position, Call device within reach, Fall prevention handout/education per facility policy, Frequent orientation to call device, Frequent orientation to surroundings, Hourly comfort/safety rounds, Non-slip footwear, Personal items within reach, Reinforced to call for assistance before getting out of bed, Room free of clutter/spills, Upper side-rails up, Wheels locked, Wires/Cords secured LY LIMA RN - 04/08/2018 8:35 EST Functional Assessment Living Situation : Home Current Home Treatments : Blood glucose monitoring LY LIMA RN - 04/08/2018 8:35 EST Influenza Vaccine Asmt, Adult Previous Vaccines from Immunization Schedule : No qualifying data available. Influenza Immunization, Current Season : No Inactivated Flu Vaccine Contraindications : No contraindications to inactivated influenza vaccine Transplant Workup/Recent Transplant : No Order for Influenza Vaccine : Declined Vaccination LY LIMA RN - 04/08/2018 8:35 EST Pneumococcal Vaccine Previous Vaccines from Immunization Schedule : No qualifying data available. Pneumonia Immunization Received : No Pneumococcal Risk Assessment < Age 65 : None LY LIMA RN - 04/08/2018 8:35 EST Valuables and Belongings Valuables and Belongings : Clothing Clothing : Common streetwear Clothing Disposition : With patient LY LIMA RN - 04/08/2018 8:35 EST documented in this encounter Plan of Treatment Not on file documented as of this encounter Visit Diagnoses Not on filedocumented in this encounter
--- OUTSIDE RECORDS SUMMARY | 2024-08-21 09:29 | XMS_ITS | Encounter Summary ---
Author Organization [employer] Address [address] [place] [address] Care Team Providers Care Cable Tester Name Role Phone Unavailable Primary Care Provider Unavailabl e Encounter Details Date Type Department Care Team (Late st Contact Info) Description 04/08/2018 Transcribed Document [facility] [place] [address] [place] [address] ProviderSommer MD [address], [place] [address] Social History Tobacco Use Types Packs/Day Years Used Date Smoking Tobacco: Never Assessed Comments Unknown Sex and Gender Information Value Date Recorded Sex Assigned at Not on file Legal Sex Female 1:18 PM CDT Gender Identity Not on file Sexual Orientation Not on file documented as of this encounter Miscellaneous Notes * Cerner Conversion Note - Sommer Karimi MD - 04/08/2018 1:21 PM DIRECTOR OF HOTEL OPERATIONS Patient Education Materials Follows: Incision Care, Adult An incision is a [...] and water are not available, use hand fiberglass container winding operator. ? Change your dressing as told by [...] even if your condition improves. ??? Take hqas-air-wnbngvn and prescription medicines only as told by [...] 08/31/2005 Document Revised: 10/19/2016 Document Reviewed: 08/29/2016 [employer] Interactive Patient Education ? 2017 [employer] Orthopedics Myelogram, Care After Introduction Refer to this [...] by your health care provider. ??? Take ogfw-wbx-djbjfgx and prescription medicines only as told by [...] are taking, including vitamins, herbs, eyedrops, and zuue-aux-dxildox medicines and creams. ??? Previous problems you [...] 10/04/2004 Document Revised: 03/04/2015 Document Reviewed: 11/24/2015 [employer] Interactive Patient Education ? 2017 [employer]. Radiology What You Need to Know About IV [...] 01/30/2010 Document Revised: 10/04/2016 Document Reviewed: 10/19/2015 [employer] Interactive Patient Education ? 2017 [employer] documented in this encounter Plan of Treatment Not on file documented as of this encounter Visit Diagnoses Not on filedocumented in this encounter
--- OUTSIDE RECORDS SUMMARY | 2024-08-21 09:29 | XMS_ITS | Clinical Summary ---
Author Organization [employer] Address [address] [place] [address] Care Team Providers Care Sewage Treatment Plant Operator Name Role Phone Unavailable Primary Care Provider [...]
--- OUTSIDE RECORDS SUMMARY | 2024-08-21 09:29 | XMS_ITS | Clinical Summary ---
Author Organization Healthcare Address [address] [id number] Care Team Providers Care Retail Supervisor Name Role Phone Eric Caraballo MD Primary Care Provider [phone] Allergies No known active allergies Medications Xarelto 20 MG tablet 11/14/2020 Active carvedilol (Coreg) 25 MG tablet 01/27/2017 Active Entresto 49-51 MG tablet 11/12/2020 Active simvastatin (Zocor) 40 MG tablet 11/08/2020 Active spironolactone (Aldactone) 25 MG tablet 11/08/2020 Active hydrOXYzine HCl (Atarax) 25 MG tablet 11/14/2020 Active levothyroxine (Synthroid, Levoxyl) 25 MCG tablet 05/03/2020 Active metFORMIN (Glucophage) 500 MG tablet 11/12/2020 Active hydroxychloroquine (Plaquenil) 200 MG tablet 11/12/2020 Active traMADol (Ultram) 50 MG tablet 09/09/2020 Active Januvia 100 MG tablet 11/14/2020 Active busPIRone (Buspar) 10 MG tablet 11/12/2020 Active ergocalciferol 1.25 MG (43226 UT) capsule 01/11/2020 Active gabapentin (Neurontin) 400 MG capsule 10/10/2020 Active ondansetron (Zofran) 4 MG tablet 11/15/2020 Active omeprazole (PriLOSEC) [address] capsule 11/14/2020 Active GaviLyte-G 236 g solution 07/06/2020 Active Family History 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 Relation Name Comments Cardiac disorder Other 1 Diabetes Other 2 Hypertension Other 3 Other cancer Other 4 Relation Name Status Comments Other 1 Other 2 Other 3 Other 4 Social History Tobacco Use Types Packs/Day Years Used Date Smoking Tobacco: Never Smokeless Tobacco: Never Alcohol Use Standard Drinks/Week Comments No 0 (1 standard drink = 0.6 oz pur e alcohol) PHQ-2 Answer Date Recorded Patient Health Questionnaire-2 Score 0 11/16/2020 Comments Unknown Sex and Gender Information Value Date Recorded Sex Assigned at Not on file Legal Sex Female 6:40 PM EDT Gender Identity Not on file Sexual Orientation Not on file Last Filed Vital Signs Vital Sign Reading Time Taken Comments Blood Pressure 120/77 11/16/2020 8:30 AM EDT Pulse 81 11/16/2020 8:30 AM EDT Temperature 37 C (98.6 F) 11/16/2020 8:30 AM EDT Respiratory Rate 14 01/02/2018 7:43 AM EST Oxygen Saturation 95% 11/16/2020 8:30 AM EDT Inhaled Oxygen Concentration - - Weight 121 kg (267 lb 6.7 oz) 11/16/2020 8:30 AM EDT Height 160 cm (5' 3 ) 11/16/2020 8:30 AM EDT Body Mass Index 47.37 11/16/2020 8:30 AM EDT Plan of Treatment Health Maintenance Due Date Last Done Comments [facility]-Depression Screening 1979 [facility]-Infant/Child/Adol SDOH Screenings 1979 [facility]-Varicella Vaccines (1 of 2 - 13+ 2-dose series) 10/26/1992 HPV Vaccines (1 - 3-dose series) 10/26/1994 [facility]- SDOH Screenings 10/26/1997 [facility]-Adult SDOH Screenings 10/26/1997 [facility]-DTaP,Tdap,and Td Vaccine s (1 - Tdap) 10/26/1998 [facility]-Hepatitis B Vaccines (1 of 3 - 19+ 3-dose series) 10/26/1998 [facility]-Pap Smear 10/26/2000 [facility]-Cervical Cancer Screening 10/26/2009 [facility]-HPV/Cotest 10/26/2009 [id number] Vaccine (1 - 20 24-25 season) 2023 [facility]-Influenza Vaccine ([place] n Ended) 2024 [facility]-Zoster Vaccines (1 of 2) 10/26/2029 [facility]-HIB Vaccines Aged Out No longer e ligible based on patient's age to complete this topic [facility]-Hepatitis A Vaccines Aged Out No longer eligible based on patient's age to complete this topic [facility]-IPV Vaccines Aged Out No longer e ligible based on patient's age to complete this topic [facility]-Pneumococcal Vaccine: Pediatrics (0 to 5 Years) and At-Risk Patients (6 to 49 Years) Aged Out No long er eligible based on patient's age to complete this topic [facility]-Rotavirus Vaccines Aged Out No lo nger eligible based on patient's age to complete this topic Insurance Care Teams Retail Supervisor Relationship Specialty Start Date End Date Eric Caraballo MD [address] [place] [address] [place] [address] PCP - General 07/08/20
--- OUTSIDE RECORDS SUMMARY | 2024-08-21 09:29 | XMS_ITS | Data Portability ---
Author Organization [facility] - [facility] ADMIN Address [address] [place] [address] Care Team Providers Care Chartered Financial Analyst Name Role Phone IRA ROBISON Referring Provider IRA ROBISON Primary Care Provider Assessment Encounter Date Assessment Date Assessment LastModified by Organization Details LastModified Time 01/07/2024 01/07/2024 [id number] le with chronic nausea, borderline delayed gastric emptying, and suspected silent reflux presents for 1 year follow up and complaint of recent dysphagia/hoarse ness. 1) Nausea, chronic: EGD by Dr. Holloway 11/14/20 with note of reflux esophagitis and esophageal dysmotility. - Continue Zofran as needed. Refills provided. 2) Delayed gastric emptying: Borderline abnormal GES 04/10/22. - Educated patient that fats and non-digestable fibers (such as fresh fruits and vegetables) slows gastric emptying - Avoid fatty, acidic and spicy foods - Educated on consuming high protein meals, low carb meals - Consume small solid meals - Consume liquid meals such as protein shakes as needed or in between solid meals 3 ) Dysphagia: Previously improved with dilation. Will schedule repeat EGD now due to recurrence. 4) Silent reflux: Continue Omeprazole 20 mg p.o. twice daily. She denies heartburn. She does have some hoarseness. ENT evaluation was normal last week per patient report. Not available 01/07/2024 09:18:57 06/02/2024 06/02/2024 [id number] le with chronic nausea, borderline delayed gastric emptying, and suspected silent reflux. Recent EGD showed gastroduodenitis . 1) Nausea, chronic: Continue Zofran. Start Prucalopride for delayed gastric emptying per below. 2) Delayed gastric emptying: Borderline abnormal GES 04/10/22. - Educated patient that fats and non-digestable fibers (such as fresh fruits and vegetables) slows gastric emptying. Keep meals small. Allow for atleast 4 hours between meals. alternate solid meals with liquid or pureed sources of nutrition. 3) Dysphagia: Not much change following dilation. Consider esophageal manometry. 4) ?Silent reflux: Continue Omeprazole 20 mg p.o. twice daily. She denies heartburn. She does have some hoarseness. ENT evaluation was normal. I suspect gastroparesis may be continuing. We will monitor for improvements while she is taking the prucalopride. f/u 6 weeks [email or web address] Not available 06/03/2024 22:55:14 07/13/2024 07/13/2024 09-[id number] le with chronic nausea, dysphagia with solids, history of borderline delayed gastric emptying, and possible silent reflux. Recent EGD showed gastroduodenitis . 1) Nausea, chronic: Continue Zofran. 2) Delayed gastric emptying: Borderline abnormal GES 04/10/22. Prucalopride was not tolerated due to excessive BMs. - Educated patient that fats and non-digestable fibers (such as fresh fruits and vegetables) slows gastric emptying. Keep meals small. Allow for atleast 4 hours between meals. alternate solid meals with liquid or pureed sources of nutrition. -We will repeat her gastric emptying study now for diagnostic clarity. 3) Dysphagia: Not much change following dilation. Obtain esophagram for further evaluation. Consider esophageal manometry. 4) Silent reflux: I have provided her with additional samples of voquezna as it seemed helpful, but she developed a cough. Cough is not a known side effect that I am aware of. She will trial again and contact the office if she has recurrent cough. ENT evaluation was recently normal. I suspect gastroparesis may be continuing. f/u 3-4 weeks [email or web address] Not available 07/13/2024 08:58:19 08/13/2024 08/13/2024 14-[id number]-[id number] le with chronic nausea, dysphagia with solids, history of borderline delayed gastric emptying, and possible silent reflux. Recent EGD showed gastroduodenitis . Esophageal dilation did not improve her swallowing. Esophagram showed mild dysmotility and delayed passage of a 13 mm barium tablet at the GE junction. 1) Nausea, chronic: Continue Zofran. 2) Delayed gastric emptying: Borderline abnormal GES 04/10/22. Prucalopride was not tolerated due to excessive BMs. - Educated patient that fats and non-digestable fibers (such as fresh fruits and vegetables) slows gastric emptying. Keep meals small. Allow for atleast 4 hours between meals. alternate solid meals with liquid or pureed sources of nutrition. -We will repeat her gastric emptying study now for diagnostic clarity. This was ordered at her last OV, not scheduled. Order was again sent to [facility] today. She was provided the number to [facility] scheduling. 3) Dysphagia: Not much change following dilation. Esophagram shows mild dysmotility and delayed passage of the barium tablet at the GE junction. -We will obtain esophageal manometry to evaluate for GEJ outflow obstruction 4) ? Silent reflux: Voquezna was not tolerated due to cough. Continue Dexlansoprazole. f/u 3-4 weeks [email or web address] Not available 08/13/2024 09:54:21 Plan of Treatment Reminders Order Date Submit Date Provider Last Modified By Organization Details Last Modified Time Details Appointments Establish ed Visit 15 min 2024 09:15A M Amish Redmond PA-C Not available Not available Not available Lab None recorded. Referral None recorded. Procedures None recorded. Surgeries None recorded. Imaging esophagea l manometry 2024 025 Not available 08/13/2024 09:55:28 NM, gastric emptying scan 2024 025 [facility] (Scheduling), [address], [place], [address], 08/13/2024 10:30:59 RF, esophagra m 2024 025 [facility] (Scheduling), [address], [place], [address], 07/17/2024 09:26:17 NM, gastric emptying scan 2024 025 [facility] (Scheduling), [address], [place], [address], 08/05/2024 08:20:24 Medication Orders prucalopr lionel 2 mg tablet 2024 025 [facility], [address] [place] [address], [address], [place], [address], 07/13/2024 08:50:08 ondansetr on 4 mg disintegr ating tablet 2024 025 [facility], [address] [place] [address], [address], [place], [address], 06/02/2024 09:22:17 ondansetr on 4 mg disintegr ating tablet 2023 024 [facility], [address] [place] [address], [address], [place], [address], 01/07/2024 09:01:15 omeprazol e 20 mg capsule,d elayed release 2023 025 [facility], [address] [place] [address], [address], [place], [address], 08/13/2024 09:32:25 Patient TargetsNo targets recorded. Patient InstructionsNo instructions recorded. Reason for Referral None Reported. Results Created Date Observation Date Name Description Value Unit Range Abnormal Flag Note LastModifiedBy Organization Detail LastModifiedTime 07/18/1907/17/2024 juan david EMANUEL No observ ation record ed. [facility] [address], [place], [address], 07/17/2024 09:26:17 08/05/1907/17/2024 juan david EMANUEL No observ ation record ed. [email or web address] (Scheduling) [address], [place], [address], 08/04/2024 11:39:50 Result Notes None recorded. Problems Name Problem SNOMED Code Status Onset Date Resolution Date Notes Provider Name and Address Organization Details Recorded Time Dysphagia 45519721 Active [address], [place] [address] , [facility] - [facility] & [place] 4 09:19:00 Chronic idiopathic constipation 49077899 Active [address], [place] [address] , [place] - [facility] & [place] 5 09:12:51 Gastroesophag eal reflux disease without esophagitis 340896765 Active [address], [place] [address] , [place] - [facility] & [place] 5 09:08:15 Internal hemorrhoids 74953335 Active [address], [place] [address] , [place] - [facility] & [place] 3 09:04:34 Nausea 414155263 Active [address], [place] [address] , [place] - [facility] & [place] 3 09:14:12 Hematochezia 610569576 Active [address], [place] [address] , [place] - [facility] & [place] 3 09:14:20 Delayed gastric emptying 967209296 Active [address], [place] [address] , [place] - [facility] & [place] 3 09:14:27 Gastroesophag eal reflux disease 953956800 Active [address], [place], [address] , [facility] & [place] 09:14:37 Problem Notes None recorded. 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 [address] , [place], [address], [facility] & [place] 06/01/2022 09:17:26 021 cholecystectomy completed [facility] & [place] 02/27/2022 08:30:30 020 tonsillectomy completed [facility] & [place] 02/27/2022 08:29:24 020 control of hemorrhage after tonsillectomy and adenoidectomy completed [facility] & [place] 02/27/2022 08:29:54 020 excision of cyst of epididymis completed [facility] & [place] 02/27/2022 08:30:57 019 Carpal tunnel surgery completed [facility] & [place] 02/27/2022 08:29:09 018 automatic defibrillator procedure completed [facility] & [place] 02/27/2022 08:28:58 014 Hysterectomy completed [facility] & [place] 02/27/2022 08:28:35 999 Appendectomy completed [facility] & [place] 02/27/2022 08:28:23 Imaging Results None recorded. Procedure Notes None recorded. Medical Equipment None Reported. Allergies Allergen ID Allergen Name Allergen Category Reaction Reaction Severity Criticality Documentation Date Start Date Code Code System Note Provider Name and Address Organization Details Recorded Time 480062 prednison e medicatio n facial swelling moderate Not available 01/07/2024 8640 RxNorm Amish Redmond PA-C [address], [place], [address] , [place] - [facility] & [place] 4 08:45:03 Medications Name Sig Start Date Stop Date Status Note LastModified by Organization Details LastModified Time amantadine HCl 100 mg tablet 07/13 completed Not Available Not Available Not Available amoxicillin 500 mg capsule 02/27 completed Not Available Not Available Not Available furosemide 40 mg tablet active Not Available Not Available Not Available methocarbam ol 500 mg tablet active Not Available Not Available Not Available metformin 500 mg tablet 01/06 completed Not Available Not Available Not Available carvedilol 25 mg tablet active Not Available Not Available Not Available carvedilol 6.25 mg tablet 02/27 completed Not Available Not Available Not Available gabapentin 600 mg tablet active Not Available Not Available Not Available carvedilol 12.5 mg tablet 01/08 completed Not Available Not Available Not Available naproxen 375 mg tablet active Not Available Not Available Not Available azithromyci n 250 mg tablet 07/13 completed Not Available Not Available Not Available hydrocodone 5 mg-acetamin ophen 325 mg tablet 02/27 completed Not Available Not Available Not Available ondansetron HCl 4 mg tablet Take 1 tablet every 6-8 hours by oral route for 30 days. 01/06 completed Not Available Not Available Not Available famotidine 40 mg tablet 07/13 completed Not Available Not Available Not Available prednisone 20 mg tablet 07/13 completed Not Available Not Available Not Available gabapentin 400 mg capsule 01/06 completed Not Available Not Available Not Available omeprazole 40 mg capsule,del ayed release 01/06 completed Not Available Not Available Not Available tramadol 50 mg tablet TAKE ONE TABLET BY MOUTH EVERY 6 HOURS NEEDED MAY CAUSE DROWSINES S active Not Available Not Available No t Available triamcinolo ne acetonide 0.1 % topical cream active Not Available Not Available Not Available spironolact one 25 mg tablet active Not Available Not Available Not Available simvastatin 40 mg tablet 07/13 completed Not Available Not Available Not Available levothyroxi ne 25 mcg tablet Take 1 tablet every day by oral route. 07/13 completed Not Available Not Available Not Available bisoprolol fumarate 10 mg tablet 07/13 completed Not Available Not Available Not Available baclofen 20 mg tablet 07/13 completed Not Available Not Available Not Available amoxicillin 875 mg tablet 01/06 completed Not Available Not Available Not Available baclofen 10 mg tablet 2024 active Not Available Not Available Not Avai lable levothyroxi ne 50 mcg tablet 07/13 completed Not Available Not Available Not Available cephalexin 500 mg capsule 07/13 completed Not Available Not Available Not Available biotin 10,000 mcg capsule Take by oral route. active Not Available Not Available No t Available buspirone 10 mg tablet Take 1 tablet twice a day by oral route. active Not Available Not Available No t Available omeprazole 20 mg capsule,del ayed release Take 1 capsule twice a day by oral route for 90 days. 08/13 completed Not Available Not Available Not Available hydroxyzine HCl 25 mg tablet active Not Available Not Available Not Available hydroxychlo roquine 200 mg tablet TAKE 1 TABLET BY MOUTH TWICE DAILY -TAKE WITH FOOD OR MILK- active Not Available Not Available No t Available albuterol sulfate HFA 90 mcg/actuati on aerosol inhaler 07/13 completed Not Available Not Available Not Available ondansetron 4 mg disintegrat ing tablet Place 1 tablet twice a day by transling ual route as needed for 30 days. 2024 active Not Available Not Available Not Avai lable cefdinir 300 mg capsule 07/13 completed Not Available Not Available Not Available fluticasone propionate 50 mcg/actuati on nasal spray,suspe nsion 07/13 completed Not Available Not Available Not Available amoxicillin 875 mg-potassiu m clavulanate 125 mg tablet 01/06 completed Not Available Not Available Not Available metformin ER 750 mg tablet,exte nded release 24 hr 07/13 completed Not Available Not Available Not Available rosuvastati n 40 mg tablet active Not Available Not Available Not Available Vitamin D3 07/13 completed Not Available Not Available Not Available BD Ultra-Fine Short Pen Needle 31 gauge x 5/16 07/13 completed Not Available Not Available Not Available Januvia 100 mg tablet 02/27 completed Not Available Not Available Not Available Janumet 50 mg-500 mg tablet 08/13 completed Not Available Not Available Not Available dexlansopra zole 60 mg capsule,bip hase delayed release Take 1 capsule every day by oral route for 30 days. 2024 active Not Available Not Available Not Avai lable Xarelto 20 mg tablet active Not Available Not Available No t Available Farxiga 10 mg tablet 07/13 completed Not Available Not Available Not Available Jardiance 10 mg tablet 07/13 completed Not Available Not Available Not Available Entresto 49 mg-51 mg tablet active Not Available Not Available Not Available Entresto 24 mg-26 mg tablet 01/06 completed Not Available Not Available Not Available melatonin 10 mg disintegrat ing tablet 07/13 completed Not Available Not Available Not Available Basaglar KwikPen U-100 Insulin 100 unit/mL (3 mL) subcutaneou s 07/13 completed Not Available Not Available Not Available prucaloprid e 2 mg tablet Take 1 tablet every day by oral route for 90 days. 07/13 completed Not Available Not Available Not Available Rybelsus 3 mg tablet 07/13 completed Not Available Not Available Not Available QuickVue At-Home COVID-19 Test kit 02/27 completed Not Available Not Available Not Available Metamucil (with sugar) 3 gram/7 gram oral powder Take by oral route. 07/13 completed Not Available Not Available Not Available Vitals Date Recorded Body height Body mass index (BMI) Body weight Body temperature Heart rate Heart rate Oxygen saturation Oxygen saturation in Arterial blood by Pulse oximetry Systolic blood pressure Diastolic blood pressure Provider Name and Address Organization Details Last Updated DateTime 5 160.02 cm 42.7 kg/m2 609831. 4 g 97.5 [degF] 89 /min 78 /min 96 % 96 % 121 mm[Hg] 80 mm[Hg] [facility] & [place] 5 08:33:59 Date Recorded Body height Body mass index (BMI) Body weight Body temperature Oxygen saturation Oxygen saturation in Arterial blood by Pulse oximetry Heart rate Systolic blood pressure Diastolic blood pressure Provider Name and Address Organization Details Last Updated DateTime 5 160.02 cm 44.4 kg/m2 613131. 33 g 98.1 [degF] 97 % 97 % 78 /min 102 mm[Hg] 70 mm[Hg] Alexander calloway [facility] & [place] 5 08:36:46 Date Recorded Body height Body mass index (BMI) Body weight Heart rate Systolic blood pressure Diastolic blood pressure Provider Name and Address Organization Details Last Updated DateTime 5 160.02 cm 44.2 kg/m2 125261. 3 g 80 /min 115 mm[Hg] 80 mm[Hg] Racqeul Rodriguez [facility] & [place] 5 09:17:37 Date Recorded Body height Body mass index (BMI) Body weight Heart rate Heart rate Oxygen saturation Oxygen saturation in Arterial blood by Pulse oximetry Body temperature Systolic blood pressure Diastolic blood pressure Provider Name and Address Organization Details Last Updated DateTime 4 160.02 cm 45.7 kg/m2 447764. 11 g 93 /min 92 /min 98 % 98 % 97.9 [degF] 122 mm[Hg] 74 mm[Hg] Rachna Lewis [facility] & [place] 4 08:24:54 Social History None recorded. Functional Status Question Answer Note LastModified by Organizat ion Details LastModified Time Do you use any illicit or recreational drugs? No Information not available 02/27/2022 What is your level of alcohol consumption? None Information not available 02/27/2022 Mental Status None recorded. Family History Relationship Description Onset Age of this Age Resolved Age Notes LastModified by Organization Details LastModified Time Mother Hypertensive disorder [email or web address] Not available 04/2022 08:27:48 Mother Diabetes mellitus [email or web address] Not available 04/2022 08:27:55 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 Condition Response Hypothyroidism Y Anxiety Disorder Y High Cholesterol N Heart Problems Y GI Problems Y Gynecological HistoryNo gynecological history recorded. Obstetrics History GPAL:G 0 P 0 0 0 0 Past Encounters Encounter ID Performer Location Encounter Start Date Encounter Closed Date Diagnosis/Indication Diagnosis SNOMED-CT Code Diagnosis ICD10 Code Diagnosis Note Edyta Caro NP [facility] [address] [place] [id number] 02/27/2022 08:09:47 02/27/2022 09:47:00 Gastroesophageal reflux disease 500968815 K21.9 - Start Omeprazole BID- Stay upright 30-60 minutes after eating- Recent EGD found GERD, erosive gastritis- Does not take NSAIDs as she is on Xarelto- Discussed avoidance of trigger foods Nausea 557187030 R11.0 - Zofran prn- last EGD mentions concern for decreased gastric motility versus gastropare sis- gastric emptying scan ordered [id number] Heri Marquez MD [facility] [place] [id number] 06/01/2022 08:39:24 06/01/2022 09:36:17 Gastroesophageal reflux disease 566223294 K21.9 Nausea 117465302 R11.0 Delayed ga stric emptying 349398093 K30 [id number] Amish Redmond PA-C [facility] [place] [id number] 01/08/2023 08:10:33 01/08/2023 09:13:38 Internal hemorrhoids 28278374 K64.8 Nausea 168467504 R11.0 Hematochezia 801584910 K 92.1 Delayed ga stric emptying 376784277 K30 Gastroesop hageal reflux disease 534551472 K21.9 [id number] Amish Redmond PA-C [facility] [place] [id number] 01/07/2024 08:01:39 01/07/2024 09:07:41 Nausea 917545954 R11.0 Delayed ga stric emptying 502420133 K30 Gastroesop hageal reflux disease 131635239 K21.9 Dysphagia 30124178 R13.1 0 [id number] Amish Redmond PA-C [facility] [address] [phone] 06/02/2024 08:09:21 06/02/2024 09:25:12 Nausea 967992015 R11.0 Delayed ga stric emptying 033632391 K30 Dysphagia 66230173 R13.1 0 Gastroesop hageal reflux disease 379559020 K21.9 Chronic id iopathic constipation 84046891 K59.04 [id number] Amish Redmond PA-C [facility] [address] [address] 07/13/2024 08:07:25 07/13/2024 09:41:27 Nausea 962032211 R11.0 Delayed ga stric emptying 890358518 K30 Dysphagia 49497066 R13.1 0 Gastroesop hageal reflux disease 161308385 K21.9 [id number] Amish Redmond PA-C [facility] [address] [place] [address] 08/13/2024 08:57:02 08/13/2024 09:55:31 Gastroesophageal reflux disease 727569494 K21.9 Nausea 806042151 R11.0 Delayed ga stric emptying 069988106 K30 Dysphagia 26176724 R13.1 0 Health Concerns Section Related Observation LastModified by Organization Detai ls LastModified Time None Recorded Concern Status LastModified by Organization Details LastModified Time None Recorded Advance Directives Directive None Recorded Payers Insurance Date Sequence Insurance Name Policy Number Policy Abdul Covered Member ID Abdul Member ID Guarantor Name 08/17/2024 1 [place] [id number] Rodrick Smith [id number] Gi Smith Notes Date Note Type Note Provider Name and Address Organization Details Recorded Time 01/07/2024 text/html Ms. Smith is a ve ry pleasant 43-year-old female with PMH of chronic nausea, borderline delayed gastric emptying, and suspected silent reflux who returns to the office today for 1 year follow-up. She has continued Zofran before meals for ongoing nausea. She is managing ok overall with this. She has continued Omeprazole, but notes she has never experienced heartburn. She was started on PPI following an EGD that showed reflux esophagitis a few years ago in [place]. Esophageal dysmotility was noted during that procedure. She reports a history of esophageal dilation that improved her swallowing. She states in October, she had an allergic reaction to prednisone and experienced throat and facial swelling. She feels she has had hoarseness and sticking of food and medications with swallowing since that time. She reports undergoing nasolaryngoscopy last week by ENT with unremarkable findings. Amish Redmond PA-C [address], [place], [address], [place] - [facility] & [place] 01/07/2024 09:19:21 06/02/2024 text/html PREVIOUS (): Ms. Smith is a very pleasant 43-year-old female with PMH of chronic nausea, borderline delayed gastric emptying, and suspected silent reflux who returns to the office today for 1 year follow-up. She has continued Zofran before meals for ongoing nausea. She is managing ok overall with this. She has continued Omeprazole, but notes she has never experienced heartburn. She was started on PPI following an EGD that showed reflux esophagitis a few years ago in [place]. Esophageal dysmotility was noted during that procedure. She reports a history of esophageal dilation that improved her swallowing. She states in October, she had an allergic reaction to prednisone and experienced throat and facial swelling. She feels she has had hoarseness and sticking of food and medications with swallowing since that time. She reports undergoing nasolaryngoscopy last week by ENT with unremarkable findings. CURRENT (06/03/24): Ms. Smith returns to the office today for procedure follow-up. She recently underwent EGD in evaluation of nausea, dysphagia, and suspected silent reflux. Gastroeduodenitis was noted. Esophageal biopsies showed reactive changes without overt esophagitis. She complains of raw sensation when swallowing. She continues to experience hoarseness and dysphagia. Empiric dilation was performed without much change in her symptoms. She also reports constipation. Amish Redmond PA-C [address], [place], [address], [place] - [facility] & [place] 06/03/2024 22:55:26 07/13/2024 text/html PREVIOUS (): Ms. Smith is a very pleasant 43-year-old female with PMH of chronic nausea, borderline delayed gastric emptying, and suspected silent reflux who returns to the office today for 1 year follow-up. She has continued Zofran before meals for ongoing nausea. She is managing ok overall with this. She has continued Omeprazole, but notes she has never experienced heartburn. She was started on PPI following an EGD that showed reflux esophagitis a few years ago in [place]. Esophageal dysmotility was noted during that procedure. She reports a history of esophageal dilation that improved her swallowing. She states in October, she had an allergic reaction to prednisone and experienced throat and facial swelling. She feels she has had hoarseness and sticking of food and medications with swallowing since that time. She reports undergoing nasolaryngoscopy last week by ENT with unremarkable findings. PREVIOUS (06/03/24): Ms. Smith returns to the office today for procedure follow-up. She recently underwent EGD in evaluation of nausea, dysphagia, and suspected silent reflux. Gastroeduodenitis was noted. Esophageal biopsies showed reactive changes without overt esophagitis. She complains of raw sensation when swallowing. She continues to experience hoarseness and dysphagia. Empiric dilation was performed without much change in her symptoms. She also reports constipation. CURRENT (07/13/24): Ms. Smith returns to the office today for follow-up regarding chronic nausea, dysphagia, and odynophagia. She was previously provided samples of voquezna. She states it helped somee with throat discomfort, but she developed a cough after a few days. She notes the cough subsided after she stopped Voquezna samples. She continues to experience dysphagia, mostly with meats and breads. Her nausea has also persisted. Zofran provides moderate relief.She was also previously prescribed prucalopride, but stopped it after 3 days due to excessive BMs. Amish Redmond PA-C [address] , [place], [address], [place] - [place] - [place] & [place] 07/13/2024 08:58:38 08/13/2024 text/html CURRENT (08/13/24 ): Ms. Smith returns to the office today for follow-up regarding dysphagia and nausea. She continues to experience frequent nausea. She has had a good effect with ondansetron. She denies vomiting or regurgitating. Recent esophagram showed dysmotility and delayed passage of the 13 mm barium tablet at the GE junction c/w narrowing. I also ordered a gastric emptying study, but she states this has not been scheduled. I recently changed her acid suppression therapy to Dexlansoprazole. She has not noticed much change with this. Voquezna was not tolerated due to cough. Amish Redmond PA-C [address], [place], [address], [facility] & [place] 08/13/2024 09:55:46 OBGyn Episode No OBEpisode recorded.
--- OUTSIDE RECORDS SUMMARY | 2024-08-21 09:29 | XMS_ITS | Continuity of Care Document ---
Author Organization [facility] - [facility], [facility] Address [address] [facility] [facility] [address] [place] [address] Care Team Providers Care Finance Vice President Name Role Phone IRA ROBISON Referring Provider IRA ROBISON Primary Care Provider Assessment Encounter Date Assessment Date Assessment LastModified by Organization Details LastModified Time 07/13/2024 07/13/2024 35-ryuh-gry-fema le with chronic nausea, dysphagia with solids, [...] gastroparesis may be continuing. f/u 3-4 weeks [email or web address] Not available 07/13/2024 08:58:19 Plan of Treatment Reminders Order Date Submit Date Provider Last Modified By Organization Details Last Modified Time Details Appointments Establish ed Visit 15 min 2024 09:15A M Amish Redmond PA-C Not available Not available Not available Lab None recorded. Referral None recorded. Procedures None recorded. Surgeries None recorded. Imaging RF, esophagra m 2024 025 [facility] (Scheduling), [address], [place], [address], 07/17/2024 09:26:17 NM, gastric emptying scan 2024 025 [facility] (Scheduling), [address], [place], [address], 08/05/2024 08:20:24 Medication Orders None recorded. Patient TargetsNo targets recorded. Patient InstructionsNo instructions recorded. Reason for Referral None Reported. Results Created Date Observation Date Name Description Value Unit Range Abnormal Flag Note LastModifiedBy Organization Detail LastModifiedTime 07/18/1907/17/2024 RFjuan david No observ ation record ed. [facility] [address], [place], [address], 07/17/2024 09:26:17 08/05/19 25 07/17/2024 juan david EMANUEL No observ ation record ed. [email or web address] l [facility] (Scheduling) [address], [place], [address], 08/04/2024 11:39:50 Result Notes None recorded. Problems Name Problem SNOMED Code Status Onset Date Resolution Date Notes Provider Name and Address Organization Details Recorded Time Dysphagia 42883544 Active 2023 Amish Redmond PA-C [address], [place], [address] , [place] - [facility] & [place] 4 09:19:00 Chronic idiopathic constipation 07016826 Active 2024 Amish Redmond PA-C [address], [place], [address] , [place] - [facility] & [place] 5 09:12:51 Gastroesophag eal reflux disease without esophagitis 207271769 Active 2024 Amish Redmond PA-C [address], [place] [address] , [place] - [facility] & [place] 5 09:08:15 Internal hemorrhoids 83683138 Active [address], [place] [address] , [place] - [facility] & [place] 3 09:04:34 Nausea 301358656 Active [address], [place] [address] , [place] - [facility] & [place] 3 09:14:12 Hematochezia 054688606 Active [address], [place] [address] , [place] - [facility] & [place] 3 09:14:20 Delayed gastric emptying 233319576 Active [address] [place] [address] , [place] - [facility] & [place] 3 09:14:27 Gastroesophag eal reflux disease 097428260 Active [address], [place] [address] , [place] - [facility] & [place] 3 09:14:37 Problem Notes None recorded. 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, HEAVY DUTY CUSTODIAN, MILIEU THERAPIST-C [address], [place] [address], [place] - [facility] & [place] 06/01/2022 09:17:26 01/01/2 021 cholecystectomy completed [facility] [place] [facility] & [place] 02/27/2022 08:30:30 020 tonsillectomy completed [facility] [place] [facility] & [place] 02/27/2022 08:29:24 020 control of hemorrhage after tonsillectomy and adenoidectomy completed [facility] [place] [facility] & [place] 02/27/2022 08:29:54 020 excision of cyst of epididymis completed [facility] [place] [facility] & [place] 02/27/2022 08:30:57 019 Carpal tunnel surgery completed [facility] & [place] 02/27/2022 08:29:09 018 automatic defibrillator procedure completed [facility] & [place] 02/27/2022 08:28:58 014 Hysterectomy completed [facility] & [place] 02/27/2022 08:28:35 999 Appendectomy completed [facility] & [place] 02/27/2022 08:28:23 Imaging Results None recorded. Procedure Notes None recorded. Medical Equipment None Reported. Allergies Allergen ID Allergen Name Allergen Category Reaction Reaction Severity Criticality Documentation Date Start Date Code Code System Note Provider Name and Address Organization Details Recorded Time 647541 prednison e medicatio n facial swelling moderate Not available 01/07/2024 8640 RxNorm Amish Redmond PA-C [address], [place], [address] [place] [address] & [place] 08:45:03 Medications Name Sig Start Date Stop [...] completed Not Available Not Available Not Available Orlin Sellers U-100 Insulin 100 unit/mL (3 mL) subcutaneou [...] and Address Organization Details Last Updated DateTime 160.02 cm 44.4 kg/m2 850208. 33 g 98.1 [degF] 97 % 97 % 78 /min 102 mm[Hg] 70 mm[Hg] Alexander calloway [facility] & [place] 08:36:46 Social History None recorded. Functional Status Question [...] SNOMED-CT Code Diagnosis ICD10 Code Diagnosis Note [id number] Amish Redmond PA-C [facility] [address] [facility] [address] [facility] [place] [address] 07/13/2024 08:07:25 07/13/2024 09:41:27 Nausea 175188386 R11.0 Delayed ga stric emptying 604903754 K30 Dysphagia 89609693 R13.1 0 Gastroesop hageal reflux disease 874646329 K21.9 Health Concerns Section Related Observation LastModified by Organization Detai ls LastModified Time None Recorded Concern Status LastModified by Organization Details LastModified Time None Recorded Payers Encounter Date Sequence Insurance Name Policy Number Policy Abdul Covered Member ID Abdul Member ID Guarantor Name 07/13/2024 1 [place] [id number] Rodrick Smith [id number] Gi Smith Notes Date Note Type Note Provider Name and Address Organization Details Recorded Time 07/13/2024 text/html PREVIOUS (): Ms. Smith is [...] reflux esophagitis a few years ago in [place]. Esophageal dysmotility was noted during that procedure. [...] due to excessive BMs. Amish Redmond PA-C [address] [facility], [place], [address], [facility] [place] & [place] 07/13/2024 08:58:38 OBGyn Episode No OBEpisode recorded.
--- OUTSIDE RECORDS SUMMARY | 2024-08-21 09:29 | XMS_ITS | Encounter Summary ---
Author Organization [employer] Address [address] [place] [address] Care Team Providers Care Structured Cabling Technician Name Role Phone Unavailable Primary Care Provider Unavailabl e Encounter Details Date Type Department Care Team (Late st Contact Info) Description 04/08/2018 Transcribed Document [facility] Family Medicine [address] [place] [address] ProviderSommer MD [address] [place] [address] Social History Tobacco Use Types Packs/Day Years Used Date Smoking Tobacco: Never Assessed Comments Unknown Sex and Gender Information Value Date Recorded Sex Assigned at Not on file Legal Sex Female 1:18 PM CDT Gender Identity Not on file Sexual Orientation Not on file documented as of this encounter Miscellaneous Notes * Cerner Conversion Note - Sommer ProviderMD - 04/08/2018 8:23 AM RESPIRATORY PHYSICIAN [facility] [address] , [place] [address] Patient Copy Patient Information: Name: GI CRUZ Current Date: 04/08/2018 08:23:47 : 1980 Patient Address: [address] [place] [id number] Patient Attending Physician: YASMANY NEVAREZ MD-ORT Primary Care Provider: RUSS KAN MD-FAM Primary Care Provider Discharge Diagnosis: Comment: Follow-up Instructions: With: Address: When: YASMANY NEVAREZ [address] [facility], [address] [place] [address] Business (1) Within 1 to 2 weeks Comments: DIRECTED. BRING CD DISC TO APPT Type Location Start Finish State xx [facility]30 [facility] 10:[address] Spine [facility] CT 10:00 AM 10:30 AM Confirmed < Discharge Instructions: Diet after Discharge: Resume usual [...] (if any): Final Medication List: Other Medications carvedilol (carvedilol 25 mg oral tablet) 1 Tablet(s) Oral Two Times A Day. levothyroxine (levothyroxine 25 mcg (0.025 mg) oral tablet) 1 Tablet(s) Oral Every Day. rivaroxaban (Xarelto 20 mg oral tablet) 1 Tablet(s) Oral Every Day. sacubitril-valsartan (Entresto 49 mg-51 mg oral tablet) 1 Tablet(s) Oral Two Times A Day. simvastatin (simvastatin 20 mg oral tablet) 1 Tablet(s) Oral Every Day. spironolactone (spironolactone 25 mg oral tablet) 0.5 Tablet(s) Oral Every Day. Patient Allergies: No Known Medication Allergies Medication [...] and water are not available, use hand structured cabling technician. ? Change your dressing as told by [...] even if your condition improves. ??? Take watv-bpr-ikgusss and prescription medicines only as told by [...] 08/31/2005 Document Revised: 10/19/2016 Document Reviewed: 08/29/2016 Elsezuuka! Interactive Patient Education ? 2017 PublishThis Inc. What You Need to Know About [...] 01/30/2010 Document Revised: 10/04/2016 Document Reviewed: 10/19/2015 PublishThis Interactive Patient Education ? 2017 blueKiwivier Inc. Myelogram, Care After Introduction Refer to [...] by your health care provider. ??? Take lcys-rrz-ezhcbwa and prescription medicines only as told by [...] are taking, including vitamins, herbs, eyedrops, and ilvb-dse-cfxmcmu medicines and creams. ??? Previous problems you [...] 10/04/2004 Document Revised: 03/04/2015 Document Reviewed: 11/24/2015 Elsevier Interactive Patient Education ? 2017 PublishThis Inc. CIGARETTE SMOKING: The facts are clear, cigarette smoking will shorten your life. Smoking can cause many illnesses along the way. As a healthcare provider, we recommend that you stop smoking. Assistance with quitting is available by contacting 0-496-RXTX-NOW. This is a free resource providing counseling, [...] Be sure to sign up for the Emida patient portal, which gives you 17/09 access to your medical information ??? including these discharge instructions ??? using your computer, smartphone, or tablet. Just go to Anapsis to get started. Questions? Call . [facility] would like to thank you for allowing us to assist you with your healthcare needs. NANCY Trujillo RACHEL A, (or electronics parts sales representative) have received the above patient education materials/instructions and have verbalized understanding: Patient Signature _ Date/Time Patient Undercoat Sprayer Signature (if needed) Date/Time Clinician/Hospital Undercoat Sprayer Signature (if needed) Date/Time documented in this encounter Plan of Treatment Not on file documented as of this encounter Visit Diagnoses Not on filedocumented in this encounter
--- OUTSIDE RECORDS SUMMARY | 2024-08-21 09:29 | XMS_ITS | Encounter Summary ---
Author Organization [employer] Address [address] [place] [address] Care Team Providers Care Fundraising Coordinator Name Role Phone Unavailable Primary Care Provider Unavailabl e Encounter Details Date Type Department Care Team (Late st Contact Info) Description 04/08/2018 Transcribed Document [facility] Family Medicine [address] [place] [address] ProviderSommer MD [address] [place] [address] Social History Tobacco Use Types Packs/Day Years Used Date Smoking Tobacco: Never Assessed Comments Unknown Sex and Gender Information Value Date Recorded Sex Assigned at Not on file Legal Sex Female 1:18 PM CDT Gender Identity Not on file Sexual Orientation Not on file documented as of this encounter Miscellaneous Notes * Cerner Conversion Note - Historical ProviderMD - 04/08/2018 8:22 AM SCHEDULING CLERK Discharge Instructions Entered On: 04/08/2018 8:23 EST Performed On: 04/08/2018 8:22 EST by LOKI MELENDREZ RN DC Instructions HWD Stroke/TIA Discharge Ins : N/A Heart Failure Discharge Ins : N/A Warfarin Discharge Ins : N/A Diet After Discharge : Resume usual diet as tolerated Activity After Discharge : As tolerated, Rest and relax today, No strenuous activities, No heavy lifting over 10 pounds Driving After Discharge : Other: NO DRIVING FOR 24 HRS Showering/Bathing : No tub bathing, soaking, or swimming Wound/Incision Care After Discharge : Keep operative site/wound site clean and dry, Change dressing with dry dressing daily and as needed, Other: CALL DR IF ANY REDNESS DRAINAGE OR FEVER DEVELOPS LOKI MELENDREZ RN - 04/08/2018 8:22 EST Electronically signed by Julio [facility] Conversion Technical Inspector Cerner at 06/14/2022 2:54 PM CDT documented in this encounter Plan of Treatment Not on file documented as of this encounter Visit Diagnoses Not on filedocumented in this encounter
--- OUTSIDE RECORDS SUMMARY | 2024-08-21 09:29 | XMS_ITS | Encounter Summary ---
Author Organization [employer] Address [address] [place] [address] Care Team Providers Care Special Tax Auditor Name Role Phone Unavailable Primary Care Provider Unavailabl e Encounter Details Date Type Department Care Team (Late st Contact Info) Description 04/08/2018 Transcribed Document [facility] Family Medicine [address] [place] [address] ProviderSommer MD [address] [place] [address] Social History Tobacco Use Types Packs/Day Years Used Date Smoking Tobacco: Never Assessed Comments Unknown Sex and Gender Information Value Date Recorded Sex Assigned at Not on file Legal Sex Female 1:18 PM CDT Gender Identity Not on file Sexual Orientation Not on file documented as of this encounter Miscellaneous Notes * Cerner Conversion Note - Sommer ProviderMD - 04/08/2018 2:35 PM PROPAGATOR [place] [address] [facility] , [place] [address] Patient Copy Patient Information: Name: GI CRUZ Current Date: 04/08/2018 14:35:16 : 1980 Patient Address: [address] [place] [phone] Patient Attending Physician: YASMANY NEVAREZ MD-ORT Primary Care Provider: RUSS KAN MD-[facility] Primary Care Provider Discharge Diagnosis: Weight on Admission: 251 lb, 0 oz Comment: Follow-up Instructions: With: Address: When: YASMANY NEVAREZ [address] [place] [address], [address] [place] [address] Business (1) Within 1 to [...] any): Final Medication List: Other Medications biotin 23553 Oral Every Day. carvedilol (carvedilol 25 mg [...] and water are not available, use hand electric plater. ? Change your dressing as told by [...] even if your condition improves. ??? Take ibgc-dah-brcdhsg and prescription medicines only as told by [...] 08/31/2005 Document Revised: 10/19/2016 Document Reviewed: 08/29/2016 Souq.com Interactive Patient Education ? 2017 Souq.com Inc. What You Need to Know About [...] 01/30/2010 Document Revised: 10/04/2016 Document Reviewed: 10/19/2015 Souq.com Interactive Patient Education ? 2017 Souq.com Inc. Myelogram, Care After Introduction Refer to [...] by your health care provider. ??? Take qjnp-zrb-znnnpff and prescription medicines only as told by [...] are taking, including vitamins, herbs, eyedrops, and enjk-yzu-vasrxxe medicines and creams. ??? Previous problems you [...] 10/04/2004 Document Revised: 03/04/2015 Document Reviewed: 11/24/2015 Souq.com Interactive Patient Education ? 2017 Souq.com Inc. CIGARETTE SMOKING: The facts are clear, cigarette smoking will shorten your life. Smoking can cause many illnesses along the way. As a healthcare provider, we recommend that you stop smoking. Assistance with quitting is available by contacting 3-288-EHEC-NOW. This is a free resource providing counseling, [...] Be sure to sign up for the Cloudability patient portal, which gives you 24/7 access to your medical information ??? including these discharge instructions ??? using your computer, smartphone, or tablet. Just go to Yvolver to get started. Questions? Call . [facility] would like to thank you for allowing us to assist you with your healthcare needs. NANCY Trujillo RACHEL A, (or construction representative) have received the above patient education materials/instructions and have verbalized understanding: Patient Signature _ Date/Time Patient Cook Apprentice Signature (if needed) Date/Time Clinician/Hospital Cook Apprentice Signature (if needed) Date/Time documented in this encounter Plan of Treatment Not on file documented as of this encounter Visit Diagnoses Not on filedocumented in this encounter
--- OUTSIDE RECORDS SUMMARY | 2024-08-21 09:29 | XMS_ITS | Encounter Summary ---
Author Organization [employer] Address [address] [place] [address] Care Team Providers Care Windows Migration Technician Name Role Phone Unavailable Primary Care Provider Unavailabl e Encounter Details Date Type Department Care Team (Late st Contact Info) Description 04/08/2018 Transcribed Document [facility] Family Medicine [address] [place] [address] ProviderSommer MD [address] [place] [address] Social History Tobacco Use Types Packs/Day Years Used Date Smoking Tobacco: Never Assessed Comments Unknown Sex and Gender Information Value Date Recorded Sex Assigned at Not on file Legal Sex Female 1:18 PM CDT Gender Identity Not on file Sexual Orientation Not on file documented as of this encounter Miscellaneous Notes * Cerner Conversion Note - Sommer ProviderMD - 04/08/2018 1:21 PM DIRECTOR OF HOTEL OPERATIONS [place] [address] [facility] [place] [address] Patient Copy Patient Information: Name: GI CRUZ Current Date: 04/08/2018 13:21:48 : 1980 Patient Address: [address] [place] [phone] Patient Attending Physician: YASMANY NEVAREZ MD-ORT Primary Care Provider: RUSS KNA MD-[facility] Primary Care Provider Discharge Diagnosis: Weight on Admission: 251 lb, 0 oz Comment: Follow-up Instructions: With: Address: When: YASMANY NEVAREZ [address] [place] [address], [address] [place] [address] Business (1) Within 1 to [...] any): Final Medication List: Other Medications biotin [address]289 Oral Every Day. carvedilol (carvedilol 25 mg [...] and water are not available, use hand veneer puller. ? Change your dressing as told by [...] even if your condition improves. ??? Take pihh-jdm-fxefdkx and prescription medicines only as told by [...] 08/31/2005 Document Revised: 10/19/2016 Document Reviewed: 08/29/2016 Panviva Interactive Patient Education ? 2017 Panviva Inc. What You Need to Know About [...] 01/30/2010 Document Revised: 10/04/2016 Document Reviewed: 10/19/2015 Panviva Interactive Patient Education ? 2017 Panviva Inc. Myelogram, Care After Introduction Refer to [...] by your health care provider. ??? Take tfzf-mhi-zzqwywo and prescription medicines only as told by [...] are taking, including vitamins, herbs, eyedrops, and bozn-dsq-pdxeyjk medicines and creams. ??? Previous problems you [...] 10/04/2004 Document Revised: 03/04/2015 Document Reviewed: 11/24/2015 Panviva Interactive Patient Education ? 2017 Panviva Inc. CIGARETTE SMOKING: The facts are clear, cigarette smoking will shorten your life. Smoking can cause many illnesses along the way. As a healthcare provider, we recommend that you stop smoking. Assistance with quitting is available by contacting 1-261-OZOJ-NOW. This is a free resource providing counseling, [...] Be sure to sign up for the U-Play Studios patient portal, which gives you 24/7 access to your medical information ??? including these discharge instructions ??? using your computer, smartphone, or tablet. Just go to CITIC Information Development to get started. Questions? Call . [facility] would like to thank you for allowing us to assist you with your healthcare needs. NANCY Trujillo RACHEL A, (or escrow representative) have received the above patient education materials/instructions and have verbalized understanding: Patient Signature _ Date/Time Patient Internet Project Manager Signature (if needed) Date/Time Clinician/Hospital Internet Project Manager Signature (if needed) Date/Time documented in this encounter Plan of Treatment Not on file documented as of this encounter Visit Diagnoses Not on filedocumented in this encounter
--- OUTSIDE RECORDS SUMMARY | 2024-08-21 09:29 | XMS_ITS | Continuity of Care Document ---
Author Organization [facility], [facility] the Address [address] [address] Care Team Providers Care Sanitation Inspector Name Role Phone IRA ROBISON Referring Provider IRA ROBISON Primary Care Provider [phone] Assessment Encounter Date Assessment Date Assessment LastModified by Organization Details LastModified Time 08/13/2024 08/13/2024 [id number] lisseth with chronic nausea, dysphagia with solids, history of borderline delayed gastric emptying, and possible silent reflux. Recent EGD showed gastroduodeniti s. Esophageal dilation did not improve her swallowing. [...] not scheduled. Order was again sent to [facility] today. She was provided the number to [facility] scheduling. 3) Dysphagia: Not much change following dilation. Esophagram shows mild dysmotility and delayed passage of the barium tablet at the GE junction. -We will obtain esophageal manometry to evaluate for GEJ outflow obstruction 4) ? Silent reflux: Voquezna was not tolerated due to cough. Continue Dexlansoprazole . f/u 3-4 weeks [email or web address] Not available 08/13/2024 09:54:21 Plan of Treatment Reminders Order Date Submit Date Provider Last Modified By Organization Details Last Modified Time Details Appointments Establish ed Visit 15 min 2024 09:15A M Amish Redmond PA-C Not available Not available Not available Lab None recorded. Referral None recorded. Procedures None recorded. Surgeries None recorded. Imaging esophagea l manometry 2024 025 [email or web address] Not available 08/13/2024 09:55:28 NM, gastric emptying scan 2024 025 [facility] (Scheduling), [address], [place], [address], 08/13/2024 10:30:59 Medication Orders None recorded. Patient TargetsNo targets recorded. Patient InstructionsNo instructions recorded. Reason for Referral None Reported. Results Created Date Observation Date Name Description Value Unit Range Abnormal Flag Note LastModifiedBy Organization Detail LastModifiedTime 07/18/1907/17/2024 RFjuan david No observ ation record ed. [facility] [address], [place], [address], 07/17/2024 09:26:17 08/05/1907/17/2024 RFjuan davidam No observ ation record ed. [email or web address] l [facility] (Scheduling) [address], [place], [address], 08/04/2024 11:39:50 Result Notes None recorded. Problems Name Problem SNOMED Code Status Onset Date Resolution Date Notes Provider Name and Address Organization Details Recorded Time Dysphagia 94921856 Active 2023 Amish Redmond PA-C [address], [place], [address] , [place] - [facility] & [place] 09:19:00 Chronic idiopathic constipation 95064364 Active 2024 Amish Redmond PA-C [address], [place], [address] , [place] - [facility] [place] & [place] 5 09:12:51 Gastroesophag eal reflux disease without esophagitis 930955969 Active [address], [place], [place], [address] [place] [address] , [place] [facility] [place] & [place] 5 09:08:15 Internal hemorrhoids 48188484 Active [address], [place], [place], [address] [place] [address] , [place] [facility] & [place] 3 09:04:34 Nausea 674611793 Active [address], [place] [address] , [place] - [facility] & [place] 3 09:14:12 Hematochezia 112278742 Active [address], [place] [address] , [place] - [facility] & [place] 3 09:14:20 Delayed gastric emptying 809942764 Active [address], [place] [address] , [place] - [facility] & [place] 3 09:14:27 Gastroesophag eal reflux disease 834730315 Active [address], [place] [address] , [place] [facility] & [place] 3 09:14:37 Problem Notes None recorded. 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, LEAD CYTOGENETIC TECHNOLOGIST, COMMUNITY ARTS WORKER-C [address] , [place] [address], [place] - [facility] & [place] 06/01/2022 09:17:26 021 cholecystectomy completed [facility] & [place] 02/27/2022 08:30:30 020 tonsillectomy completed [facility] & [place] 02/27/2022 08:29:24 020 control of hemorrhage after tonsillectomy and adenoidectomy completed [facility] & [place] 02/27/2022 08:29:54 020 excision of cyst of epididymis completed [facility] & [place] 02/27/2022 08:30:57 019 Carpal tunnel surgery completed [facility] & [place] 02/27/2022 08:29:09 018 automatic defibrillator procedure completed [facility] & [place] 02/27/2022 08:28:58 014 Hysterectomy completed [facility] & [place] 02/27/2022 08:28:35 999 Appendectomy completed [facility] & [place] 02/27/2022 08:28:23 Imaging Results None recorded. Procedure Notes None recorded. Medical Equipment None Reported. Allergies Allergen ID Allergen Name Allergen Category Reaction Reaction Severity Criticality Documentation Date Start Date Code Code System Note Provider Name and Address Organization Details Recorded Time 673314 prednison e medicatio n facial swelling moderate Not available 01/07/2024 8640 RxNorm Amish Redmond PA-C [address], [place], [address] [place] [address] & [place] 08:45:03 Medications Name Sig Start Date Stop [...] Updated DateTime 5 160.02 cm 44.2 kg/m2 856935. 3 g 80 /min 115 mm[Hg] 80 mm[Hg] [facility] [place] [place] & [place] 5 09:17:37 Social History None recorded. Functional Status Question [...] available 04/2022 08:27:55 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 Condition Response Heart Problems Y GI Problems Y Hypothyroidism Y Anxiety Disorder Y High Cholesterol N Gynecological HistoryNo gynecological history recorded. Obstetrics History GPAL:G 0 P 0 0 0 0 Past Encounters Encounter ID Performer Location Encounter Start Date Encounter Closed Date Diagnosis/Indication Diagnosis SNOMED-CT Code Diagnosis ICD10 Code Diagnosis Note [id number] Amish Redmond PA-C [facility] [address] [place] [address] [address] [place] [address] 07/13/2024 08:07:25 07/13/2024 09:41:27 Nausea 268171579 R11.0 Delayed ga stric emptying 397234874 K30 Dysphagia 35889389 R13.1 0 Gastroesop hageal reflux disease 257139860 K21.9 [id number] Amish Redmond PA-C [facility] [address] [facility] [address] [place] [address] 08/13/2024 08:57:02 08/13/2024 09:55:31 Gastroesophageal reflux disease 845005640 K21.9 Nausea 592810025 R11.0 Delayed ga stric emptying 804906260 K30 Dysphagia 82258486 R13.1 0 Health Concerns Section Related Observation LastModified by Organization Detai ls LastModified Time None Recorded Concern Status LastModified by Organization Details LastModified Time None Recorded Payers Encounter Date Sequence Insurance Name Policy Number Policy Abdul Covered Member ID Abdul Member ID Guarantor Name 08/13/2024 1 [place] [id number] Rodrick Smith [id number] Smith Notes Date Note Type Note Provider Name and Address Organization Details Recorded Time 08/13/2024 text/html CURRENT (08/13/24): Ms. Smith returns to the office today [...] tolerated due to cough. Amish Redmond PA-C [address] [facility], [place], [address], [facility] 08/13/2024 09:55:46 OBGyn Episode No OBEpisode recorded.
--- OUTSIDE RECORDS SUMMARY | 2024-08-21 09:29 | XMS_ITS | Encounter Summary ---
Author Organization [employer] Address [address] [place] [address] Care Team Providers Care Automotive Services Manager Name Role Phone Unavailable Primary Care Provider Unavailabl e Encounter Details Date Type Department Care Team (Late st Contact Info) Description 04/08/2018 Transcribed Document [facility] Family Medicine [address] [place] [address] ProviderSommer MD [address] [place] [address] Social History Tobacco Use Types Packs/Day Years Used Date Smoking Tobacco: Never Assessed Comments Unknown Sex and Gender Information Value Date Recorded Sex Assigned at Not on file Legal Sex Female 1:18 PM CDT Gender Identity Not on file Sexual Orientation Not on file documented as of this encounter Miscellaneous Notes * Cerner Conversion Note - Historical ProviderMD - 04/08/2018 1:56 PM CHART CLERK Nursing Discharge Summary Entered On: 04/08/2018 13:57 EST Performed On: 04/08/2018 13:56 EST by LY LIMA RN Discharge Documentation Discharge Date/Time : 04/08/2018 14:33 EST Transporter Signature : LY LIMA RN ANG, KATHERINE, RN - 04/08/2018 14:26 EST Patient Disposition, General : Discharge Discharge To : Home with ambulatory/outpatient follow-up Mode Of Departure, General Discharge : Private vehicle Accompanied By, Discharge : Friend IV Discontinued : Not applicable Personal Belongings With Patient : Yes Pt's Own Supply of Medications Returned : No Prescriptions Given to Patient : No Discharge Instructions Reviewed With, Opportunity For Questions Given : Patient Teaching Method : Explanation Teaching Evaluation : Verbalizes understanding LY LIMA RN - 04/08/2018 13:56 EST Electronically signed by Julio [facility] Conversion Check And Transfer Beader Cerner at 06/14/2022 2:51 PM CDT documented in this encounter Plan of Treatment Not on file documented as of this encounter Visit Diagnoses Not on filedocumented in this encounter
[2024-08-21] MEDS: TC99M SULF.COLLOID;1 DOSE (UP TO 20 MCI) IV (09:50)
== END 2024-08-21 23:59 | disposition home or self-care (01) ==
LOC: RAD 09:27
PROVIDERS: PCP Nurse Practitioner Family; Visit Provider Physician Assistant
DX: R93.3 Abnormal findings on diagnostic imaging of other parts of digestive tract (principal); R11.0 Nausea
CPT/HCPCS: 78264; A9541

== ENCOUNTER 2024-09-01 10:37 | Outpatient (CLI) | payer BC, SELFPAY ==
[2024-09-01 14:34] LABS: Cholesterol 162 mg/dl (140-200); HDL Cholesterol 54 mg/dl (40-60); Triglycerides 228 mg/dl (30-150)
[2024-09-01 16:00] LABS: Ferritin 18.1 ng/ml (6.24-137)
--- OUTSIDE RECORDS SUMMARY | 2024-09-02 10:39 | XMS_ITS | Continuity of Care Document ---
Author Organization [facility] - [facility], [facility] Address [address], Located Within [facility] [address] [place] [address] Care Team Providers Care Balance Staff Staker Name Role Phone IRA ROBISON Referring Provider [phone] IRA ROBISON Primary Care Provider Assessment Encounter Date Assessment Date Assessment LastModified by Organization Details LastModified Time 07/13/2024 07/13/2024 [id number] le with chronic nausea, dysphagia with solids, [...] gastroparesis may be continuing. f/u 3-4 weeks [email or web address] Not available 07/13/2024 08:58:19 Plan of Treatment Reminders Order Date Submit Date Provider Last Modified By Organization Details Last Modified Time Details Appointments Establish ed Visit 15 min 2024 09:15A M Amish Redmond PA-C Not available Not available Not available Lab None recorded. Referral None recorded. Procedures None recorded. Surgeries None recorded. Imaging RF, esophagra m 2024 025 [facility] (Scheduling), [address], [place], [address], 07/17/2024 09:26:17 NM, gastric emptying scan [address] ([facility] [address], [place], [place], [address], 08/05/2024 08:20:24 Medication Orders None recorded. Patient TargetsNo targets recorded. Patient InstructionsNo instructions recorded. Reason for Referral None Reported. Results Created Date Observation Date Name Description Value Unit Range Abnormal Flag Note LastModifiedBy Organization Detail LastModifiedTime 07/18/1907/17/2024 juan david EMANUEL No observ ation record ed. [facility] [address], [place], [place], [address], 07/17/2024 09:26:17 08/05/1907/17/2024 juan david EMANUEL No observ ation record ed. [email or web address] l [facility] (Scheduling) [address], [place], [place], [address], 08/04/2024 11:39:50 08/22/1908/21/2024 imagi ng/gilberto solizos tic resul t No observ ation record ed. [facility] [address], [place], [address], 08/21/2024 16:10:25 Result Notes None recorded. Problems Name Problem SNOMED Code Status Onset Date Resolution Date Notes Provider Name and Address Organization Details Recorded Time Dysphagia 39144192 Active 2023 Amish Redmond PA-C [address] , [place], [address] , [facility] & [place] 4 09:19:00 Chronic idiopathic constipation 67040034 Active [address], [place] [address] , [place] - [facility] & [place] 5 09:12:51 Gastroesophag eal reflux disease without esophagitis 283648149 Active [address], [place] [address] , [place] [facility] & [place] 5 09:08:15 Internal hemorrhoids 64382219 Active [address], [place] [address] , [place] [facility] [facility] & [place] 3 09:04:34 Nausea 211849213 Active [address], [place] [address] , [place] [facility] [facility] & [place] 3 09:14:12 Hematochezia 723308668 Active [address] [place] [address] , [place] - [facility] & [place] 3 09:14:20 Delayed gastric emptying 492138651 Active [address] [address] , [place] [facility] & [place] 3 09:14:27 Gastroesophag eal reflux disease 623255421 Active [address] [address] , [place] [facility] & [place] 3 09:14:37 Problem Notes None recorded. 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, [employer], FUR TAILOR-C [address], [place], [address], [facility] & [place] 06/01/2022 09:17:26 021 cholecystectomy completed [facility] & [place] 02/27/2022 08:30:30 020 tonsillectomy completed [facility] & [place] 02/27/2022 08:29:24 020 control of hemorrhage after tonsillectomy and adenoidectomy completed [facility] & [place] 02/27/2022 08:29:54 020 excision of cyst of epididymis completed [facility] & [place] 02/27/2022 08:30:57 019 Carpal tunnel surgery completed [facility] & [place] 02/27/2022 08:29:09 018 automatic defibrillator procedure completed [facility] & [place] 02/27/2022 08:28:58 014 Hysterectomy completed [facility] & [place] 02/27/2022 08:28:35 999 Appendectomy completed [facility] & [place] 02/27/2022 08:28:23 Imaging Results None recorded. Procedure Notes None recorded. Medical Equipment None Reported. Allergies Allergen ID Allergen Name Allergen Category Reaction Reaction Severity Criticality Documentation Date Start Date Code Code System Note Provider Name and Address Organization Details Recorded Time 706736 prednison e medicatio n facial swelling moderate Not available 01/07/2024 8640 RxNorm Amish Redmond PA-C [address], [place], [address], [facility] & [place] 08:45:03 Medications Name Sig Start Date Stop [...] Ultra-Fine Short Pen Needle 31 gauge x 16 07/13 completed Not Available Not Available Not [...] completed Not Available Not Available Not Available Basaglcheng VidalikPen U-100 Insulin 100 unit/mL (3 mL) subcutaneou [...] blood by Pulse oximetry Heart rate Systolic And Diastolic Provider Name and Address Organization Details Last Updated DateTime 160.02 cm 44.4 kg/m2 354145. 33 g 98.1 [degF] 97 % 97 % 78 /min 102/70 mm[Hg] [place] - [facility] - [place] & [place] 08:36:46 Social History None recorded. Functional Status [...] available 04/2022 08:27:55 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 Condition Response Anxiety Disorder Y Heart Problems Y GI Problems Y Hypothyroidism Y High Cholesterol N Gynecological HistoryNo gynecological history recorded. Obstetrics History GPAL:G 0 P 0 0 0 0 Past Encounters Encounter ID Performer Location Encounter Start Date Encounter Closed Date Diagnosis/Indication Diagnosis SNOMED-CT Code Diagnosis ICD10 Code Diagnosis Note [id number] Amish Redmond PA-C [facility] [address], [facility]ated [facility] [address] [place] [address] 07/13/2024 08:07:25 07/13/2024 09:41:27 Nausea 837349120 R11.0 Delayed ga stric emptying 612989292 K30 Dysphagia 14459708 R13.1 0 Gastroesop hageal reflux disease 729046662 K21.9 Health Concerns Section Related Observation LastModified by Organization Detai ls LastModified Time None Recorded Concern Status LastModified by Organization Details LastModified Time None Recorded Payers Encounter Date Sequence Insurance Name Policy Number Policy Abdul Covered Member ID Abdul Member ID Guarantor Name 07/13/2024 1 [place] [facility] [id number] Rodrick Smith [id number] [address] Smith Notes Date Note Type [...] reflux esophagitis a few years ago in [place]. Esophageal dysmotility was noted during that procedure. [...] due to excessive BMs. Amish Redmond PA-C [address], [place], [address], [facility] - [place] & [place] 07/13/2024 08:58:38 OBGyn Episode No OBEpisode recorded.
--- OUTSIDE RECORDS SUMMARY | 2024-09-02 10:40 | XMS_ITS | Continuity of Care Document ---
Author Organization [facility] - [facility], [facility] Address [address] [address] Care Team Providers Care Inspector Scales Name Role Phone IRA ROBISON Referring Provider IRA ROBISON Primary Care Provider Assessment Encounter Date Assessment Date Assessment LastModified by Organization Details LastModified Time 08/13/2024 08/13/2024 88-xlij-xtx-fem lisseth with chronic nausea, dysphagia with solids, [...] not scheduled. Order was again sent to [facility] today. She was provided the number to [facility] scheduling. 3) Dysphagia: Not much change following dilation. Esophagram shows mild dysmotility and delayed passage of the barium tablet at the GE junction. -We will obtain esophageal manometry to evaluate for GEJ outflow obstruction 4) ? Silent reflux: Voquezna was not tolerated due to cough. Continue Dexlansoprazole . f/u 3-4 weeks [email or web address] Not available 08/13/2024 09:54:21 Plan of Treatment [...] 09:55:28 NM, gastric emptying scan 2024 025 [facility] (Scheduling), [address], [place], [address], 08/27/2024 07:39:05 Medication Orders None recorded. Patient TargetsNo targets recorded. Patient InstructionsNo instructions recorded. Reason for Referral None Reported. Results Created Date Observation Date Name Description Value Unit Range Abnormal Flag Note LastModifiedBy Organization Detail LastModifiedTime 07/18/1907/17/2024 RFjuan david No observ ation record ed. [facility] [address], [place], [address], 07/17/2024 09:26:17 08/05/1907/17/2024 RFjuan david No observ ation record ed. [email or web address] l [facility] (Scheduling) [address], [place], [place], [address], 08/04/2024 11:39:50 08/22/1908/21/2024 imagi ng/di agnos tic resul t No observ ation record ed. [facility] [address], [place], [address], 08/21/2024 16:10:25 Result Notes None recorded. Problems Name Problem SNOMED Code Status Onset Date Resolution Date Notes Provider Name and Address Organization Details Recorded Time Dysphagia 03900244 Active 2023 Amish Redmond PA-C [address] , [place], [address] , [place] - [facility] & [place] 4 09:19:00 Chronic idiopathic constipation 45765703 Active [address] , [place], [address] , [place] [facility] [facility] & [place] 5 09:12:51 Gastroesophag eal reflux disease without esophagitis 198472396 Active [address], [place], [address] , [place] [facility] [facility] & [place] 5 09:08:15 Internal hemorrhoids 59075340 Active [address] , [place], [address] , [place] [facility] & [place] 3 09:04:34 Nausea 581891475 Active [address], [place], [address] , [place] [facility] [facility] & [place] 3 09:14:12 Hematochezia 730609855 Active [address] , [place], [address] , [place] [facility] [facility] & [place] 3 09:14:20 Delayed gastric emptying 927290268 Active [address] , [place], [address] , [place] [facility] & [place] 3 09:14:27 Gastroesophag eal reflux disease 615459824 Active [address] , [place], [address] , [place] [facility] [facility] & [place] 3 09:14:37 Problem Notes None recorded. 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 & [place] 06/01/2022 09:17:26 021 cholecystectomy completed [facility] & [place] 02/27/2022 08:30:30 020 tonsillectomy completed [facility] & [place] 02/27/2022 08:29:24 020 control of hemorrhage after tonsillectomy and adenoidectomy completed [facility] & [place] 02/27/2022 08:29:54 020 excision of cyst of epididymis completed [facility] & [place] 02/27/2022 08:30:57 019 Carpal tunnel surgery completed [facility] & [place] 02/27/2022 08:29:09 018 automatic defibrillator procedure completed [facility] & [place] 02/27/2022 08:28:58 014 Hysterectomy completed [facility] & [place] 02/27/2022 08:28:35 999 Appendectomy completed [facility] & [place] 02/27/2022 08:28:23 Imaging Results None recorded. Procedure Notes None recorded. Medical Equipment None Reported. Allergies Allergen ID Allergen Name Allergen Category Reaction Reaction Severity Criticality Documentation Date Start Date Code Code System Note Provider Name and Address Organization Details Recorded Time 776401 prednison e medicatio n facial swelling moderate Not available 01/07/2024 8640 RxNorm Amish Redmond PA-C [address], [place], [address], [facility] & [place] 08:45:03 Medications Name Sig Start Date Stop [...] index (BMI) Body weight Heart rate Systolic And Diastolic Provider Name and Address Organization Details Last Updated DateTime 08/13/2024 160.02 cm 44.2 kg/m2 590018.3 g 80 /min 115/80 mm[Hg] Racquel Rojasett [facility] & [place] 08/13/2024 09:17:37 Social History None recorded. Functional Status [...] SNOMED-CT Code Diagnosis ICD10 Code Diagnosis Note [id number] Amish Redmond PA-C [facility] [address] [address] 07/13/2024 08:07:25 07/13/2024 09:41:27 Nausea 942044092 R11.0 Delayed ga stric emptying 916814263 K30 Dysphagia 84932917 R13.1 0 Gastroesop hageal reflux disease 381619282 K21.9 [id number] Amish Redmond PA-C [facility] [address] [address] 08/13/2024 08:57:02 08/13/2024 09:55:31 Gastroesophageal reflux disease 479979006 K21.9 Nausea 034879178 R11.0 Delayed ga stric emptying 188420813 K30 Dysphagia 40007087 R13.1 0 Health Concerns Section Related Observation LastModified by Organization Detai ls LastModified Time None Recorded Concern Status LastModified by Organization Details LastModified Time None Recorded Payers Encounter Date Sequence Insurance Name Policy Number Policy Abdul Covered Member ID Abdul Member ID Guarantor Name 08/13/2024 1 [employer]: [facility] [id number] Rodrick Smith [id number] [address] Smith Notes Date Note Type [...] tolerated due to cough. Amish Redmond PA-C [address], [place], [address], [facility] - [place] & [place] 08/13/2024 09:55:46 OBGyn Episode No OBEpisode recorded.
--- OUTSIDE RECORDS SUMMARY | 2024-09-02 10:40 | XMS_ITS | Data Portability ---
Author Organization [facility] - [facility] ADMIN Address [address] [place] [address] Care Team Providers Care Family Medicine Chair Name Role Phone IRA ROBISON Referring Provider [phone] IRA ROBISON Primary Care Provider Assessment Encounter Date Assessment Date Assessment LastModified by Organization Details LastModified Time 01/07/2024 01/07/2024 57-xszq-ppb-fema le with chronic nausea, borderline delayed gastric [...] was normal last week per patient report. [email or web address] Not available 01/07/2024 09:18:57 06/02/2024 06/02/2024 95-astq-yww-fema le with chronic nausea, borderline delayed gastric [...] is taking the prucalopride. f/u 6 weeks [email or web address] Not available 06/03/2024 22:55:14 07/13/2024 07/13/2024 44-ddnv-otb-fema le with chronic nausea, dysphagia with solids, [...] gastroparesis may be continuing. f/u 3-4 weeks [email or web address] Not available 07/13/2024 08:58:19 08/13/2024 08/13/2024 06-ndau-dzt-femjacob le with chronic nausea, dysphagia with solids, [...] not scheduled. Order was again sent to [facility] today. She was provided the number to [facility] scheduling. 3) Dysphagia: Not much change following dilation. Esophagram shows mild dysmotility and delayed passage of the barium tablet at the GE junction. -We will obtain esophageal manometry to evaluate for GEJ outflow obstruction 4) ? Silent reflux: Voquezna was not tolerated due to cough. Continue Dexlansoprazole. f/u 3-4 weeks Not available 08/13/2024 09:54:21 Plan of Treatment Reminders Order Date Submit Date Provider Last Modified By Organization Details Last Modified Time Details Appointments Establish ed Visit 15 min 2024 09:15A M Amish Redmond PA-C Not available Not available Not available Lab None recorded. Referral None recorded. Procedures None recorded. Surgeries None recorded. Imaging esophagea l manometry 2024 025 [email or web address] Not available 08/13/2024 09:55:28 NM, gastric emptying scan 2024 025 [facility] (Scheduling), [address], [place], [address], 08/27/2024 07:39:05 RF, esophagra m 2024 025 [facility] (Scheduling), [address], [place], [address], 07/17/2024 09:26:17 NM, gastric emptying scan 2024 025 [facility] (Scheduling), [address], [place], [address], 08/05/2024 08:20:24 Medication Orders prucalopr lionel 2 mg tablet 2024 025 [facility], [address] [place] [address], [address], [place], [address], 07/13/2024 08:50:08 ondansetr on 4 mg disintegr ating tablet 2024 025 [facility], [address] [place] [address], [facility], [place], [address], 06/02/2024 09:22:17 ondansetr on 4 mg disintegr ating tablet 2023 024 [facility], [address] [place] [address], [facility], [place], [address], 01/07/2024 09:01:15 omeprazol e 20 mg capsule,d elayed release 2023 025 [facility], [address] [place] [address], [address], [place], [address], 08/13/2024 09:32:25 Patient TargetsNo targets recorded. Patient InstructionsNo instructions recorded. Reason for Referral None Reported. Results Created Date Observation Date Name Description Value Unit Range Abnormal Flag Note LastModifiedBy Organization Detail LastModifiedTime 07/18/1907/17/2024 juan david EMANUEL No observ ation record ed. [facility] [address], [place], [address], 07/17/2024 09:26:17 08/05/1907/17/2024 juan david EMANUEL No observ ation record ed. [email or web address] l [facility] (Scheduling) [address], [place], [address], 08/04/2024 11:39:50 08/22/1908/21/2024 imagi ng/gilberto wallis tic resul t No observ ation record ed. [facility] [address], [place], [address], 08/21/2024 16:10:25 Result Notes None recorded. Problems Name Problem SNOMED Code Status Onset Date Resolution Date Notes Provider Name and Address Organization Details Recorded Time Dysphagia 07949571 Active [address], [place], [address] , [place] [facility] [place] & [place] 4 09:19:00 Chronic idiopathic constipation 84275393 Active [address], [place], [address] , [place] [facility] & [place] 5 09:12:51 Gastroesophag eal reflux disease without esophagitis 446407974 Active [address], [place], [address] , [place] [facility] & [place] 5 09:08:15 Internal hemorrhoids 39392627 Active [address] , [place], [address] , [place] [facility] & [place] 3 09:04:34 Nausea 891708388 Active [address], [place], [address] , [place] [facility] & [place] 3 09:14:12 Hematochezia 533912704 Active [address], [place], [address] , [place] [facility] & [place] 3 09:14:20 Delayed gastric emptying 682707805 Active [address], [place], [address] , [facility] & [place] 3 09:14:27 Gastroesophag eal reflux disease 807644482 Active 2022 Amish Redmond PA-C [address] , [place], [address] , [facility] - [place] [facility] & [place] 3 09:14:37 Problem Notes None recorded. 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, P D DRIVER-C [address] , [place], [address], [facility] & [place] 06/01/2022 09:17:26 021 cholecystectomy completed [facility] & [place] 02/27/2022 08:30:30 020 tonsillectomy completed [facility] & [place] 02/27/2022 08:29:24 020 control of hemorrhage after tonsillectomy and adenoidectomy completed [facility] & [place] 02/27/2022 08:29:54 020 excision of cyst of epididymis completed [facility] & [place] 02/27/2022 08:30:57 019 Carpal tunnel surgery completed [facility] & [place] 02/27/2022 08:29:09 018 automatic defibrillator procedure completed [facility] & [place] 02/27/2022 08:28:58 014 Hysterectomy completed [facility] & [place] 02/27/2022 08:28:35 999 Appendectomy completed [facility] & [place] 02/27/2022 08:28:23 Imaging Results None recorded. Procedure Notes None recorded. Medical Equipment None Reported. Allergies Allergen ID Allergen Name Allergen Category Reaction Reaction Severity Criticality Documentation Date Start Date Code Code System Note Provider Name and Address Organization Details Recorded Time 881717 prednison e medicatio n facial swelling moderate Not available 01/07/2024 8640 RxNorm Amish Redmond PA-C [address] [facility], [place], [address], [facility] - [facility] & [place] 4 08:45:03 Medications Name Sig Start Date [...] Ultra-Fine Short Pen Needle 31 gauge x 07/10 completed Not Available Not Available Not Available [...] Not Available Not Available Not Available Basaglcheng HopkinsPen U-100 Insulin 100 unit/mL (3 mL) subcutaneou [...] in Arterial blood by Pulse oximetry Systolic And Diastolic Provider Name and Address Organization Details Last Updated DateTime 5 160.02 cm 42.7 kg/m2 333139. 4 g 97.5 [degF] 89 /min 78 /min 96 % 96 % 121/80 mm[Hg] Rachna PALM - [place] [facility] & [place] 5 08:33:59 Date Recorded Body height Body mass index (BMI) Body weight Body temperature Oxygen saturation Oxygen saturation in Arterial blood by Pulse oximetry Heart rate Systolic And Diastolic Provider Name and Address Organization Details Last Updated DateTime 5 160.02 cm 44.4 kg/m2 083771. 33 g 98.1 [degF] 97 % 97 % 78 /min 102/70 mm[Hg] Alexander Villanuevademetrius calloway [facility] & [place] 5 08:36:46 Date Recorded Body height Body mass index (BMI) Body weight Heart rate Systolic And Diastolic Provider Name and Address Organization Details Last Updated DateTime 08/13/2024 160.02 cm 44.2 kg/m2 857116.3 g 80 /min 115/80 mm[Hg] Racquel Rodriguez [facility] & [place] 08/13/2024 09:17:37 Date Recorded Body height Body mass index (BMI) Body weight Heart rate Heart rate Oxygen saturation Oxygen saturation in Arterial blood by Pulse oximetry Body temperature Systolic And Diastolic Provider Name and Address Organization Details Last Updated DateTime 4 160.02 cm 45.7 kg/m2 777936. 11 g 93 /min 92 /min 98 % 98 % 97.9 [degF] 122/74 mm[Hg] Rachna Bassdwell [facility] & [place] 4 08:24:54 Social History None recorded. Functional [...] SNOMED-CT Code Diagnosis ICD10 Code Diagnosis Note [id number] Edyta Caro NP [facility] [place] 4996624-[address] 2 02/27/2022 08:09:47 02/27/2022 09:47:00 Gastroesophageal reflux disease 310155863 K21.9 - Start Omeprazole BID- Stay upright 30-60 minutes after eating- Recent EGD found GERD, erosive gastritis- Does not take NSAIDs as she is on Xarelto- Discussed avoidance of trigger foods Nausea 055727056 R11.0 - Zofran prn- last EGD mentions concern for decreased gastric motility versus gastropare sis- gastric emptying scan ordered [id number] Heri Marquez MD [facility] [place] 4996624-[address] 06/01/2022 08:39:24 06/01/2022 09:36:17 Gastroesophageal reflux disease 886403429 K21.9 Nausea 237823330 R11.0 Delayed ga stric emptying 827120633 K30 [id number] Amish Redmond PA-C [facility] [place] 4996624[address] 01/08/2023 08:10:33 01/08/2023 09:13:38 Internal hemorrhoids 31291210 K64.8 Nausea 168169862 R11.0 Hematochezia 399433260 K 92.1 Delayed ga stric emptying 974401828 K30 Gastroesop hageal reflux disease 616581785 K21.9 [id number] Amish Redmond PA-C [facility] [place] [address] 01/07/2024 08:01:39 01/07/2024 09:07:41 Nausea 741890397 R11.0 Delayed ga stric emptying 069730479 K30 Gastroesop hageal reflux disease 556242381 K21.9 Dysphagia 91949266 R13.1 0 [id number] Amish Redmond PA-C [facility] [address] [address] 06/02/2024 08:09:21 06/02/2024 09:25:12 Nausea 885871395 R11.0 Delayed ga stric emptying 592544457 K30 Dysphagia 39218783 R13.1 0 Gastroesop hageal reflux disease 991036367 K21.9 Chronic id iopathic constipation 83033262 K59.04 [id number] Amish Redmond PA-C [facility] [address] [address] 07/13/2024 08:07:25 07/13/2024 09:41:27 Nausea 374457586 R11.0 Delayed ga stric emptying 695787162 K30 Dysphagia 98463011 R13.1 0 Gastroesop hageal reflux disease 567138778 K21.9 [id number] Amish Redmond PA-C [facility] [address] [address] 08/13/2024 08:57:02 08/13/2024 09:55:31 Gastroesophageal reflux disease 353992690 K21.9 Nausea 880586453 R11.0 Delayed ga stric emptying 848881316 K30 Dysphagia 05365688 R13.1 0 Health Concerns Section Related Observation LastModified by Organization Detai ls LastModified Time None Recorded Concern Status LastModified by Organization Details LastModified Time None Recorded Advance Directives Directive None Recorded Payers Insurance Date Sequence Insurance Name Policy Number Policy Abdul Covered Member ID Abdul Member ID Guarantor Name 08/25/2024 1 [employer]: YOLIS LOYOLA [facility] [id number] Rodrick Smith [id number] Notes Date Note Type [...] reflux esophagitis a few years ago in [place]. Esophageal dysmotility was noted during that procedure. [...] findings. Amish Redmond PA-C [address], [place], [address], [facility] 01/07/2024 09:19:21 06/02/2024 text/html PREVIOUS (): Ms. [...] reflux esophagitis a few years ago in [place]. Esophageal dysmotility was noted during that procedure. [...] constipation. Amish Redmond PA-C [address], [place], [address], [facility] & [place] 06/03/2024 22:55:26 07/13/2024 text/html PREVIOUS (): Ms. [...] reflux esophagitis a few years ago in [place]. Esophageal dysmotility was noted during that procedure. [...] due to excessive BMs. Amish Redmond PA-C [address], [place], [address], [place] [facility] [place] & [place] 07/13/2024 08:58:38 08/13/2024 text/html CURRENT (08/13/24 ): [...] tolerated due to cough. Amish Redmond PA-C [address], [place], [address], [facility] - [place] - [place] & [place] 08/13/2024 09:55:46 OBGyn Episode No OBEpisode recorded.
--- OUTSIDE RECORDS SUMMARY | 2024-09-02 10:40 | XMS_ITS | Clinical Summary ---
Author Organization Healthcare Address [address] [id number] Care Team Providers Care Director Of Income Tax Name Role Phone Eric Caraballo MD Primary Care Provider [phone] Allergies No known active allergies Medications Xarelto [...] MG tablet 11/12/2020 Active ergocalciferol 1.25 MG (09918 UT) capsule 01/11/2020 Active gabapentin (Neurontin) 400 [...] 10/26/2000 [facility]-Cervical Cancer Screening 10/26/2009 [facility]-HPV/Cotest 10/26/2009 [facility]-BXPNG-19 Vaccine (1 - 20 24-25 season) 2023 [...] to complete this topic Insurance Care Teams Director Of Income Tax Relationship Specialty Start Date End Date Eric Caraballo MD [address] [place] [address] [place] [address] PCP - General 07/08/20
== END 2024-09-01 23:59 | disposition home or self-care (01) ==
LOC: LAB.DROPOF 09-02 10:38
PROVIDERS: PCP Nurse Practitioner Family; Visit Provider Nurse Practitioner Family
DX: E78.2 Mixed hyperlipidemia (principal); D50.9 Iron deficiency anemia, unspecified
CPT/HCPCS: 80061; 82728

== ENCOUNTER 2024-09-02 09:00 | Outpatient (POV) | payer BC, SELFPAY ==
--- NOTE | 2024-09-02 09:04 | EXP.PAIN.SOA ---
[facility] Disclaimer: The information contained in this section may have been updated after the patient was seen, as this information can be updated by other users. 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 Type 2 diabetes mellitus without complications Implantable cardioverter-defibrillator (ICD) at end of battery life History of cardiac pacemaker Acute pharyngitis Tenderness of chest wall Pacemaker Anxiety and depression CHF (congestive heart failure) Dyspnea Chronic systolic heart failure Post-tonsillectomy hemorrhage Pulmonary hypertension Diabetes mellitus Epicondylitis Nonischemic cardiomyopathy SOB (shortness of breath) Edema Palpitations Diastolic dysfunction Hyperlipidemia Iron deficiency anemia History of pulmonary embolus (PE) Hypertensive heart disease Cardiomyopathy Hypertensive disorder Surgical History History of cholecystectomy H/O removal of cyst leg, thumb and knee History of tonsillectomy History of carpal tunnel release of both wrists H/O: hysterectomy History of appendectomy Family History Other Family history of cancer Family history of diabetes mellitus Social History Smoking Status: Never smoker second hand exposure: No alcohol intake: never counseling provided: none substance use type: denies use current occupational status: other Travel in the last 8 weeks?: None household members: spouse housing: house 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 Today she rates her pain a 3 out of 10. She denies any new falls or injuries. She does state that she has had approximately 90percent improvement following these injections. Patient is currently managed with baclofen 20 mg at bedtime and methocarbamol 500 mg during the day. She is also prescribed compounded cream. Her Robbie has been reviewed and is appropriate. Review of Systems: General: No recent weight changes, no fever, no sleep disturbances Respiratory: No cough, no shortness of air, no recurring pulmonary infections Cardiovascular/peripheral vascular: No chest pain, no palpitations, no edema, no shortness of breath Gastrointestinal: No new onset incontinence, normal bowel movements reported Genitourinary: No new onset incontinence Musculoskeletal: Low back pain Psychiatric: [Normal mood/affect] Neurological: [Denies weakness in extremities], [denies balance issues] Pain at rest (0-10 scale): 3 Objective Objective:: Physical Exam: General: Alert and oriented x3, no acute distress, pleasant and cooperative Lungs: Respirations even and unlabored, symmetrical chest expansion Eyes: PERRL Musculoskeletal: Flexion and extension of lumbar [spine] somewhat guarded secondary to pain Neurological: Speech clear, no gross sensory deficit Has patient had previous pain injection?: Yes Percent improvement in pain since last injection: 90% Conservative treatment options previously tried: Home exercise plan Length of treatment: Longer than 12 weeks Meds Home Medications and Allergies Home Medications ?Medication ?Instructions ?Recorded ?Confirmed ?Type biotin 10,000 mcg capsule 10,000 mcg PO DAILY Supplement 03/15/17 09/01/24 History magnesium chloride 64 mg 400 mg PO DAILY 10/26/22 09/01/24 History (magnesium chloride) tablet rosuvastatin 40 mg tablet 20 mg (1/2 x 40 mg) PO DAILY #90 08/16/23 09/01/24 Rx tabs blood sugar diagnostic (Accu-Chek 09/17/23 09/01/24 History Guide test strips) blood-glucose meter (Accu-Chek 09/17/23 09/01/24 History Guide Glucose Meter) furosemide 40 mg tablet 40 mg PO DAILY PRN Fluid 09/17/23 09/01/24 History lancets (Accu-Chek Softclix 09/17/23 09/01/24 History Lancets) pen needle, diabetic 31 gauge x #1,200 ea 09/17/23 09/01/24 History 5/16 (BD Ultra-Fine Short Pen Needle) carvedilol 25 mg tablet See Rx Instructions .Route 11/13/23 09/01/24 Rx .COMPLEX #180 tabs omeprazole 20 mg capsule,delayed See Rx Instructions .Route 11/15/23 09/01/24 Rx release .COMPLEX #180 caps sacubitril 49 mg-valsartan 51 mg See Rx Instructions .Route 03/13/24 09/01/24 Rx tablet (Entresto) .COMPLEX #180 tabs buspirone 10 mg tablet See Rx Instructions .Route 04/13/24 09/01/24 Rx .COMPLEX #60 tabs hydroxychloroquine 200 mg tablet See Rx Instructions .Route 04/13/24 09/01/24 Rx .COMPLEX #60 tabs ondansetron HCl 4 mg tablet See Rx Instructions .Route 06/01/24 09/01/24 Rx .COMPLEX #30 ea methocarbamol 500 mg tablet 500 mg PO TID #90 tabs 06/10/24 09/01/24 Rx tramadol 50 mg tablet 50 mg PO Q6H PRN PAIN #120 tabs 06/26/24 09/01/24 Rx ferrous gluconate 324 mg (37.5 mg 324 mg PO DAILY #30 tabs 07/31/24 09/01/24 Rx iron) tablet fluconazole 100 mg tablet 100 mg PO DAILY 10 days #10 tabs 08/03/24 09/01/24 Rx spironolactone 25 mg tablet 25 mg PO DAILY Fluid #90 tabs 08/03/24 09/01/24 Rx gabapentin 600 mg tablet See Rx Instructions .Route 08/11/24 09/01/24 Rx .COMPLEX #60 tabs hydroxyzine HCl 25 mg tablet See Rx Instructions .Route 08/11/24 09/01/24 Rx .COMPLEX #90 tabs rivaroxaban 20 mg tablet (Xarelto) See Rx Instructions .Route 08/11/24 09/01/24 Rx .COMPLEX #30 tabs sitagliptin 50 mg-metformin ER 500 See Rx Instructions .Route 08/11/24 09/01/24 Rx mg tablet,extended rel 24hr mphase .COMPLEX #60 tabs (Zituvimet XR) baclofen 20 mg tablet See Rx Instructions .Route 08/26/24 09/01/24 Rx .COMPLEX #120 tabs dulaglutide 1.5 mg/0.5 mL See Rx Instructions .Route 08/26/24 09/01/24 Rx subcutaneous pen injector .COMPLEX #2 mL (Trulicity) naproxen 375 mg tablet See Rx Instructions .Route 08/26/24 09/01/24 Rx .COMPLEX #60 tabs triamcinolone acetonide 0.1 % See Rx Instructions .Route 08/26/24 09/01/24 Rx topical cream .COMPLEX #80 grams New Prescriptions to Start Prescriptions: Allergies Allergy/AdvReac Type Severity Reaction Status Date / Time prednisone Allergy Unknown Verified 09/01/24 09:14 allergy reaction empagliflozin (From AdvReac Mild Unknown Verified 09/01/24 09:14 Jardiance) allergy reaction dapagliflozin (From Farxiga) AdvReac Cramping Verified 09/01/24 09:14 of the Muscles Assessment and Plan *Assessment and plan (1) Sacroiliitis: Status: Acute Category: Medical Code(s): M46.1 - Sacroiliitis, not elsewhere classified (2) Lumbar degenerative disc disease: Status: Acute Category: Medical Code(s): M51.369 - Other intervertebral disc degeneration, lumbar region without mention of lumbar back pain or lower extremity pain Plan Patient has had significant improvement following her SI injections and does not require any additional injection therapy at this time. Patient will return to clinic in 6 weeks. Patient has been instructed to contact the clinic with any concerns before the next appointment. Dr. Rivera has reviewed this note and agrees with this plan of care. This note was dictated using voice recognition software and make contain errors or omissions. All injections are used with Lidocaine, Bupivacaine and dexamethasone. Occasionally urine drug screen is needed to verify patient's compliance with our office pain contract. This is ordered based off specific treatments related to chronic pain with the potential to abuse certain medications.
--- OUTSIDE RECORDS SUMMARY | 2024-09-02 09:07 | XMS_ITS | Encounter Summary ---
Author Organization [employer] ([place], [place], [place], [place]) Address [address] [place] [address] Care Team Providers Care Drupal Web Developer Name Role Phone Unavailable Primary Care Provider Unavailabl e Encounter Details Date Type Department Care Team (Late st Contact Info) Description 04/08/2018 Transcribed Document [facility] [place] [facility] [place] [address] ProviderSommer MD [address] [place] [address] Social History Tobacco Use Types Packs/Day Years Used Date Smoking Tobacco: Never Assessed Comments Unknown Sex and Gender Information Value Date Recorded Sex Assigned at Not on file Legal Sex Female 1:18 PM CDT Gender Identity Not on file Sexual Orientation Not on file documented as of this encounter Miscellaneous Notes * Cerner Conversion Note - Sommer ProviderMD - 04/08/2018 1:57 PM TANK TRUCK MECHANIC [place] [address] [address] [facility] , [place] [address] Patient Copy Patient Information: Name: GI CURZ Current Date: 04/08/2018 13:57:07 : 1980 Patient Address: [address] [place] [address] Patient Attending Physician: YASMANY NEVAREZ MD-ORT Primary Care Provider: RUSS KAN MD-[facility] Primary Care Provider Discharge Diagnosis: Weight on Admission: 251 lb, 0 oz Comment: Follow-up Instructions: With: Address: When: YASMANY NEVAREZ [address] [place] [address], [address] [place] [address] Business (1) Within 1 to [...] any): Final Medication List: Other Medications biotin [address]17 Oral Every Day. carvedilol (carvedilol 25 mg [...] and water are not available, use hand ground wirer. ? Change your dressing as told by [...] even if your condition improves. ??? Take jqkw-mcw-gglobzn and prescription medicines only as told by [...] 08/31/2005 Document Revised: 10/19/2016 Document Reviewed: 08/29/2016 [employer] Interactive Patient Education ? 2017 [employer] What You Need to Know About [...] 01/30/2010 Document Revised: 10/04/2016 Document Reviewed: 10/19/2015 [employer] Interactive Patient Education ? 2017 [employer] Myelogram, Care After Introduction Refer to [...] by your health care provider. ??? Take kpit-pmh-ofamkmo and prescription medicines only as told by [...] Revised: 07/19/2016 Document Reviewed: 11/24/2015 ? 2017 [employer] Myelography is an X-ray exam in [...] are taking, including vitamins, herbs, eyedrops, and niqw-jcb-irqcama medicines and creams. ??? Previous problems you [...] 10/04/2004 Document Revised: 03/04/2015 Document Reviewed: 11/24/2015 [employer] Interactive Patient Education ? 2017 [employer] CIGARETTE SMOKING: The facts are clear, cigarette smoking will shorten your life. Smoking can cause many illnesses along the way. As a healthcare provider, we recommend that you stop smoking. Assistance with quitting is available by contacting 5-039-OKUN-NOW. This is a free resource providing counseling, [...] Be sure to sign up for the [employer] patient portal, which gives you 17/09 access to your medical information ??? including these discharge instructions ??? using your computer, smartphone, or tablet. Just go to [employer] to get started. Questions? Call . [facility] would like to thank you for allowing us to assist you with your healthcare needs. NANCY Trujillo RACHEL A, (or escrow representative) have received the above patient education materials/instructions and have verbalized understanding: Patient Signature _ Date/Time Patient Cutter Grinder Signature (if needed) Date/Time Clinician/Hospital Cutter Grinder Signature (if needed) Date/Time documented in this encounter Plan of Treatment Not on file documented as of this encounter Visit Diagnoses Not on filedocumented in this encounter
--- OUTSIDE RECORDS SUMMARY | 2024-09-02 09:07 | XMS_ITS | Clinical Summary ---
Author Organization Healthcare Address [address] [place] [id number] Care Team Providers Care Data Analytics Specialist Name Role Phone Eric Caraballo MD Primary Care Provider [phone] Allergies No known active allergies Medications Xarelto [...] MG tablet 11/12/2020 Active ergocalciferol 1.25 MG (34582 UT) capsule 01/11/2020 Active gabapentin (Neurontin) 400 [...] Date Last Done Comments [facility]-Depression Screening 1980 [facility]-/Child/Adol SDOH Screenings 1980 [facility]-Varicella Vaccines (1 of 2 - 13+ 2-dose series) 10/26/1992 HPV Vaccines (1 - 3-dose series) 10/26/1994 [facility]- SDOH Screenings 10/26/1997 [facility]-Adult SDOH Screenings 10/26/1997 [facility]-DTaP,Tdap,and Td Vaccine s (1 - Tdap) 10/26/1998 [facility]-Hepatitis B Vaccines (1 of 3 - 19+ 3-dose series) 10/26/1998 [facility]-Pap Smear 10/26/2000 [facility]-Cervical Cancer Screening 10/26/2009 [facility]-HPV/Cotest 10/26/2009 [id number] Vaccine (1 - 20 24-25 season) 2023 [facility]-Influenza Vaccine (#1) 2024 [facility]-Zoster Vaccines (1 of 2) 10/26/2029 [...] to complete this topic Insurance Care Teams Data Analytics Specialist Relationship Specialty Start Date End Date Eric Caraballo MD [address] [place] [address] [place] [address] PCP - General 07/08/20
--- OUTSIDE RECORDS SUMMARY | 2024-09-02 09:07 | XMS_ITS | Encounter Summary ---
Author Organization [employer] ([place], [place], [place], [place]) Address [address] [place] [address] Care Team Providers Care Silk Soaker Name Role Phone Unavailable Primary Care Provider Unavailabl e Encounter Details Date Type Department Care Team (Late st Contact Info) Description 04/08/2018 Transcribed Document [facility] [place] [facility] [place] [address] ProviderSommer MD [address] [place] [address] Social History Tobacco Use Types Packs/Day Years Used Date Smoking Tobacco: Never Assessed Comments Unknown Sex and Gender Information Value Date Recorded Sex Assigned at Not on file Legal Sex Female 1:18 PM CDT Gender Identity Not on file Sexual Orientation Not on file documented as of this encounter Miscellaneous Notes * Cerner Conversion Note - Sommer ProviderMD - 04/08/2018 1:56 PM EMERGENCY WORKER Nursing Discharge Summary Entered On: 04/08/2018 13:57 [...] 04/08/2018 13:56 EST Electronically signed by Julio [facility] Conversion Construction Trades Teacher Cerner at 06/14/2022 2:51 PM CDT documented in this encounter Plan of Treatment Not on file documented as of this encounter Visit Diagnoses Not on filedocumented in this encounter
--- OUTSIDE RECORDS SUMMARY | 2024-09-02 09:07 | XMS_ITS | Encounter Summary ---
Author Organization [employer] ([place], [place], [place], [place]) Address [address] [place] [address] Care Team Providers Care Senior Executive Compensation Analyst Name Role Phone Unavailable Primary Care Provider Unavailabl e Encounter Details Date Type Department Care Team (Late st Contact Info) Description 04/08/2018 Transcribed Document [facility] [place] [facility] [place] [address] ProviderSommer MD [address] [place] [address] Social History Tobacco Use Types [...] Sommer Karimi MD - 04/08/2018 1:21 PM EMAIL DESIGNER Patient Education Materials Follows: Incision Care, Adult [...] and water are not available, use hand manager product design. ? Change your dressing as told by [...] even if your condition improves. ??? Take ytlx-szx-chntbzr and prescription medicines only as told by [...] 08/31/2005 Document Revised: 10/19/2016 Document Reviewed: 08/29/2016 ElseEZ LIFT [employer] Systems Interactive Patient Education ? 2017 [employer]. Orthopedics Myelogram, Care After Introduction Refer [...] by your health care provider. ??? Take cjjo-ivj-jwvckdj and prescription medicines only as told by [...] are taking, including vitamins, herbs, eyedrops, and pkbw-dxi-awslohc medicines and creams. ??? Previous problems you [...] 10/04/2004 Document Revised: 03/04/2015 Document Reviewed: 11/24/2015 C[employer]pace Interactive Patient Education ? 2017 [employer]. Radiology What You Need to Know About [...] 01/30/2010 Document Revised: 10/04/2016 Document Reviewed: 10/19/2015 ElseEZ LIFT Rescue Systems Interactive Patient Education ? 2017 [employer] documented in this encounter Plan of Treatment Not on file documented as of this encounter Visit Diagnoses Not on filedocumented in this encounter
--- OUTSIDE RECORDS SUMMARY | 2024-09-02 09:07 | XMS_ITS | Encounter Summary ---
Author Organization [employer] ([place], [place], [place], [place]) Address [address] [place] [address] Care Team Providers Care Route Delivery Service Driver Name Role Phone Unavailable Primary Care Provider Unavailabl e Encounter Details Date Type Department Care Team (Late st Contact Info) Description 04/08/2018 Transcribed Document [facility] [place] [facility] [address] ProviderSommer MD [address] [place] [address] Social History Tobacco Use Types Packs/Day Years Used Date Smoking Tobacco: Never Assessed Comments Unknown Sex and Gender Information Value Date Recorded Sex Assigned at Not on file Legal Sex Female 1:18 PM CDT Gender Identity Not on file Sexual Orientation Not on file documented as of this encounter Miscellaneous Notes * Cerner Conversion Note - Sommer ProviderMD - 04/08/2018 8:23 AM JIG BORER [place] [address] , [place] [address] Patient Copy Patient Information: Name: GI CRUZ Current Date: 04/08/2018 08:23:47 : 1980 Patient Address: [address] [place] [id number] Patient Attending Physician: YASMANY NEVAREZ MD-ORT Primary Care Provider: RUSS KAN MD-[facility] Primary Care Provider Discharge Diagnosis: Comment: Follow-up Instructions: With: Address: When: YASMANY NEVAREZ [address] [facility], [address] [place] [address] Business (1) Within 1 to 2 weeks Comments: DIRECTED. BRING CD DISC TO APPT Type Location Start Finish State CR Myel[facility] 9:30 AM 10:[address] Spine [facility] CT 10:00 AM 10:30 AM Confirmed < [...] and water are not available, use hand projection printer. ? Change your dressing as told by [...] even if your condition improves. ??? Take wcku-hiv-locjqnm and prescription medicines only as told by [...] 08/31/2005 Document Revised: 10/19/2016 Document Reviewed: 08/29/2016 ElseZingCheckout Interactive Patient Education ? 2017 [employer] What You Need to Know About [...] 01/30/2010 Document Revised: 10/04/2016 Document Reviewed: 10/19/2015 [employer] Interactive Patient Education ? 2017 [employer] Myelogram, Care After Introduction Refer to [...] by your health care provider. ??? Take fjao-cbi-qohrsar and prescription medicines only as told by [...] are taking, including vitamins, herbs, eyedrops, and lpkz-biw-dpwwyap medicines and creams. ??? Previous problems you [...] 10/04/2004 Document Revised: 03/04/2015 Document Reviewed: 11/24/2015 [employer] Interactive Patient Education ? 2017 [employer] CIGARETTE SMOKING: The facts are clear, cigarette smoking will shorten your life. Smoking can cause many illnesses along the way. As a healthcare provider, we recommend that you stop smoking. Assistance with quitting is available by contacting 4-317-IHID-NOW. This is a free resource providing counseling, [...] Be sure to sign up for the [employer] patient portal, which gives you 17/09 access to your medical information ??? including these discharge instructions ??? using your computer, smartphone, or tablet. Just go to [employer] to get started. Questions? Call . [facility] would like to thank you for allowing us to assist you with your healthcare needs. NANCY Trujillo RACHEL A, (or off premise service representative) have received the above patient education materials/instructions and have verbalized understanding: Patient Signature _ Date/Time Patient Carpenter Inspector Signature (if needed) Date/Time Clinician/Hospital Carpenter Inspector Signature (if needed) Date/Time documented in this encounter Plan of Treatment Not on file documented as of this encounter Visit Diagnoses Not on filedocumented in this encounter
--- OUTSIDE RECORDS SUMMARY | 2024-09-02 09:07 | XMS_ITS | Referral Summary ---
Author Organization [employer] ([place], [place], [place], [place]) Address [address] [place] [address] Care Team Providers Care Cutting Table Operator Name Role Phone Unavailable Primary Care [...]
--- OUTSIDE RECORDS SUMMARY | 2024-09-02 09:07 | XMS_ITS | Encounter Summary ---
Author Organization [employer] ([place], [place], [place], [place]) Address [address] [place] [address] Care Team Providers Care Nozzleman Name Role Phone Unavailable Primary Care Provider Unavailabl e Encounter Details Date Type Department Care Team (Late st Contact Info) Description 04/08/2018 Transcribed Document [facility] [place] [address] [place] [address] ProviderSommer MD [address] [place] [id number] Social History Tobacco Use Types Packs/Day Years Used Date Smoking Tobacco: Never Assessed Comments Unknown Sex and Gender Information Value Date Recorded Sex Assigned at Not on file Legal Sex Female 1:18 PM CDT Gender Identity Not on file Sexual Orientation Not on file documented as of this encounter Miscellaneous Notes * Cerner Conversion Note - Sommer ProviderMD - 04/08/2018 11:14 AM CREATIVE ARTS MUSIC THERAPIST Patient: GI CRUZ Age: 37 years Sex: [...]
--- OUTSIDE RECORDS SUMMARY | 2024-09-02 09:07 | XMS_ITS | Clinical Summary ---
Author Organization [employer] ([place], [place], [place], [place]) Address [address] [place] [address] Care Team Providers Care Tire Trimmer Hand Name Role Phone Unavailable Primary Care Provider [...]
--- OUTSIDE RECORDS SUMMARY | 2024-09-02 09:07 | XMS_ITS | Encounter Summary ---
Author Organization [employer] ([place], [place], [place], [place]) Address [address] [place] [address] Care Team Providers Care Expediter Service Order Name Role Phone Unavailable Primary Care Provider Unavailabl e Encounter Details Date Type Department Care Team (Late st Contact Info) Description 04/08/2018 Transcribed Document [facility] [place] [facility] [place] [address] ProviderSommer MD [address] [place] [address] Social History Tobacco Use Types Packs/Day Years Used Date Smoking Tobacco: Never Assessed Comments Unknown Sex and Gender Information Value Date Recorded Sex Assigned at Not on file Legal Sex Female 1:18 PM CDT Gender Identity Not on file Sexual Orientation Not on file documented as of this encounter Miscellaneous Notes * Cerner Conversion Note - Sommer ProviderMD - 04/08/2018 2:35 PM CHARCOAL UNLOADER [address] , [place] [address] Patient Copy Patient Information: Name: GI CRUZ Current Date: 04/08/2018 14:35:16 : 1980 Patient Address: [address] [place] [phone] Patient Attending Physician: YASMANY NEVAREZ MD-ORT Primary Care Provider: RUSS KAN MD-[facility] Primary Care Provider Discharge Diagnosis: Weight on Admission: 251 lb, 0 oz Comment: Follow-up Instructions: With: Address: When: YASMANY NEVAREZ [address] [place] [address], [address] [place] [address] Business (1) Within 1 to [...] any): Final Medication List: Other Medications biotin [address]324 Oral Every Day. carvedilol (carvedilol 25 mg [...] and water are not available, use hand mine geologist. ? Change your dressing as told by [...] even if your condition improves. ??? Take irtz-dmx-siaamex and prescription medicines only as told by [...] 08/31/2005 Document Revised: 10/19/2016 Document Reviewed: 08/29/2016 ElseTheFamily Interactive Patient Education ? 2017 [employer]. What You Need to Know About [...] 01/30/2010 Document Revised: 10/04/2016 Document Reviewed: 10/19/2015 [employer] Interactive Patient Education ? 2017 [employer]. Myelogram, Care After Introduction Refer to [...] by your health care provider. ??? Take wnej-vlq-dvxgzzw and prescription medicines only as told by [...] are taking, including vitamins, herbs, eyedrops, and fykq-zph-tjovsff medicines and creams. ??? Previous problems you [...] 10/04/2004 Document Revised: 03/04/2015 Document Reviewed: 11/24/2015 [employer] Interactive Patient Education ? 2017 [employer] CIGARETTE SMOKING: The facts are clear, cigarette smoking will shorten your life. Smoking can cause many illnesses along the way. As a healthcare provider, we recommend that you stop smoking. Assistance with quitting is available by contacting 5-699-NMJZ-NOW. This is a free resource providing counseling, [...] Be sure to sign up for the [employer] patient portal, which gives you 17/09 access to your medical information ??? including these discharge instructions ??? using your computer, smartphone, or tablet. Just go to [employer] to get started. Questions? Call . [facility] would like to thank you for allowing us to assist you with your healthcare needs. NANCY Trujillo RACHEL A, (or field sales representative) have received the above patient education materials/instructions and have verbalized understanding: Patient Signature _ Date/Time Patient Software Test Automation Engineer Signature (if needed) Date/Time Clinician/Hospital Software Test Automation Engineer Signature (if needed) Date/Time documented in this encounter Plan of Treatment Not on file documented as of this encounter Visit Diagnoses Not on filedocumented in this encounter
--- OUTSIDE RECORDS SUMMARY | 2024-09-02 09:07 | XMS_ITS | Encounter Summary ---
Author Organization [employer] ([place], [place], [place], [place]) Address [address] [place] [address] Care Team Providers Care Travel Service Consultant Name Role Phone Unavailable Primary Care Provider Unavailabl e Encounter Details Date Type Department Care Team (Late st Contact Info) Description 04/08/2018 Transcribed Document [facility] [place] [facility] [place] [address] ProviderSommer MD [address] [place] [address] Social History Tobacco Use Types Packs/Day Years Used Date Smoking Tobacco: Never Assessed Comments Unknown Sex and Gender Information Value Date Recorded Sex Assigned at Not on file Legal Sex Female 1:18 PM CDT Gender Identity Not on file Sexual Orientation Not on file documented as of this encounter Miscellaneous Notes * Cerner Conversion Note - Sommer ProviderMD - 04/08/2018 8:35 AM HI LO DRIVER PAT / Pre Procedure Adult Entered On: 04/08/2018 8:43 EST Performed On: 04/08/2018 8:35 EST by LY LIMA RN General Info Arrived From : Home Mode of Arrival on Unit : Ambulatory Patient Arrival Date/Time : 04/08/2018 8:05 EST Legal Guardian : Spouse Support Person/Pt Rep Name : MAR- Support Person/Pt Rep Contact Information : [phone] Want Family/Rep/Phys Notified of Admit : No Emergency Contact #1 : NA Emergency Contact #1 Phone Number : NA Emergency Contact #1 Relationship : NA Emergency Contact #2 : NA Emergency Contact #2 Phone Number : NA Emergency Contact #2 Relationship : NA Information Obtained From : Patient Primary Language : Sierra Leonean Communication Barrier : None LY LIMA RN - 04/08/2018 8:35 EST Height and Weight, Clinical Dosing Height Source : Stated Height Entry Format : Perry Height, Feet : 5 ft(Converted to: 152 cm, 60 Inch) Height, Inches : 3 Inch(Converted to: 0 ft 3 Inch, 7.62 cm) Clinical Height : 160.02 cm Weight Source : Standing scale Weight Entry Format : Perry Clinical Dosing Weight : 114.09 kg Weight, Pounds : 251 lb Body Surface Area (BSA) : 2.13 m2 Body Mass Index : 44.6 kg/m2 (>HHI) [place] Body Weight : 52 kg LY LIMA [...] Scale Risk Level : 25-45 Medium Risk Gifford Fall Interventions : Adequate lighting, Assistive devices [...]
--- OUTSIDE RECORDS SUMMARY | 2024-09-02 09:07 | XMS_ITS | Encounter Summary ---
Author Organization [employer] ([place], [place], [place], [place]) Address [address] [place] [address] Care Team Providers Care Electrical Test Engineer Name Role Phone Unavailable Primary Care Provider Unavailabl e Encounter Details Date Type Department Care Team (Late st Contact Info) Description 04/08/2018 Transcribed Document [facility] [place] [facility] [place] [address] ProviderSommer MD [address] [place] [address] Social History Tobacco Use Types Packs/Day Years Used Date Smoking Tobacco: Never Assessed Comments Unknown Sex and Gender Information Value Date Recorded Sex Assigned at Not on file Legal Sex Female 1:18 PM CDT Gender Identity Not on file Sexual Orientation Not on file documented as of this encounter Miscellaneous Notes * Cerner Conversion Note - Sommer ProviderMD - 04/08/2018 8:22 AM PARCEL CARRIER Discharge Instructions Entered On: 04/08/2018 8:23 EST [...] 04/08/2018 8:22 EST Electronically signed by Julio [facility] Conversion Burnishing Machine Operator Cerner at 06/14/2022 2:54 PM CDT documented in this encounter Plan of Treatment Not on file documented as of this encounter Visit Diagnoses Not on filedocumented in this encounter
--- OUTSIDE RECORDS SUMMARY | 2024-09-02 09:07 | XMS_ITS | Encounter Summary ---
Author Organization [employer] ([place], [place], [place], [place]) Address [address] [place] [address] Care Team Providers Care Shovel Handle Assembler Name Role Phone Unavailable Primary Care Provider Unavailabl e Encounter Details Date Type Department Care Team (Late st Contact Info) Description 04/08/2018 Transcribed Document [facility] [place] [facility] [place] [address] ProviderSommer MD [address] [place] [address] Social History Tobacco Use Types Packs/Day Years Used Date Smoking Tobacco: Never Assessed Comments Unknown Sex and Gender Information Value Date Recorded Sex Assigned at Not on file Legal Sex Female 1:18 PM CDT Gender Identity Not on file Sexual Orientation Not on file documented as of this encounter Miscellaneous Notes * Cerner Conversion Note - Sommer ProviderMD - 04/08/2018 1:21 PM AUTOMOBILE BRAKES BONDER [address] , [place] [address] Patient Copy Patient Information: Name: GI CRUZ Current Date: 04/08/2018 13:21:48 : 1980 Patient Address: [address] [place] [id number] Patient Attending Physician: YASMANY NEVAREZ MD-ORT Primary Care Provider: RUSS KAN MD-[facility] Primary Care Provider Discharge Diagnosis: Weight on Admission: 251 lb, 0 oz Comment: Follow-up Instructions: With: Address: When: YASMANY NEVAREZ [address] [place] [address], [address] [place] [address] Business (1) Within 1 to [...] any): Final Medication List: Other Medications biotin [address] Oral Every Day. carvedilol (carvedilol 25 mg [...] and water are not available, use hand roving frame tender. ? Change your dressing as told by [...] even if your condition improves. ??? Take pxjk-gee-oetfxzi and prescription medicines only as told by [...] 08/31/2005 Document Revised: 10/19/2016 Document Reviewed: 08/29/2016 ElseRecognition PRO Interactive Patient Education ? 2017 [employer] What You Need to Know About [...] 01/30/2010 Document Revised: 10/04/2016 Document Reviewed: 10/19/2015 [employer] Interactive Patient Education ? 2017 [employer]. Myelogram, Care After Introduction Refer to [...] by your health care provider. ??? Take kell-eha-cisrhlr and prescription medicines only as told by [...] are taking, including vitamins, herbs, eyedrops, and vphv-xgo-wwoiybi medicines and creams. ??? Previous problems you [...] 10/04/2004 Document Revised: 03/04/2015 Document Reviewed: 11/24/2015 [employer] Interactive Patient Education ? 2017 [employer] CIGARETTE SMOKING: The facts are clear, cigarette smoking will shorten your life. Smoking can cause many illnesses along the way. As a healthcare provider, we recommend that you stop smoking. Assistance with quitting is available by contacting 8-292-VPWK-NOW. This is a free resource providing counseling, [...] Be sure to sign up for the [employer] patient portal, which gives you 17/09 access to your medical information ??? including these discharge instructions ??? using your computer, smartphone, or tablet. Just go to [employer] to get started. Questions? Call . [facility] would like to thank you for allowing us to assist you with your healthcare needs. NANCY Trujillo RACHEL A, (or procurement representative) have received the above patient education materials/instructions and have verbalized understanding: Patient Signature _ Date/Time Patient Waste Management Specialist Signature (if needed) Date/Time Clinician/Hospital Waste Management Specialist Signature (if needed) Date/Time Electronically signed by Selena Kim Conversion Reading Efficiency Course Director Cerner at 06/14/2022 3:10 PM CDT documented in this encounter Plan of Treatment Not on file documented as of this encounter Visit Diagnoses Not on filedocumented in this encounter
[2024-09-02 09:37] VITALS: BP 117/71; PULSE 86; RESP 14; O2SAT 95; BMI 43.4
== END 2024-09-02 23:59 | disposition home or self-care (01) ==
LOC: SC.PAIN 09:00
PROVIDERS: PCP Nurse Practitioner Family; Visit Provider Nurse Practitioner Family
DX: M46.1 Sacroiliitis, not elsewhere classified (principal); M51.360 Other intervertebral disc degeneration, lumbar region with discogenic back pain only
CPT/HCPCS: 99212; G0463

== ENCOUNTER 2024-10-01 13:21 | Emergency (ER) | payer BC, SELFPAY ==
[2024-10-01] VITALS (19 sets, daily range): BP systolic 85–163; BP diastolic 53–107; PULSE 75–111; RESP 13–24; TEMP 36.7–36.9; O2SAT 91–98; BMI 43.0
--- NOTE | 2024-10-01 13:24 | ECG_ITS ---
APPROVED REPORT Exam: Resting ECG HR:102 bpm ECG Measurements Heart Rate 102 AXES OR 152 P 76 QRSd 151 QRS 114 QT 391 T 78 QTc 450 Conclusion V-paced Rhythm at 102 BPM LBBB Right axis No STEMI Electronically signed by : [place], 10/01/2024 17:28:32
--- NOTE | 2024-10-01 13:27 | ED_ITS ---
<Statement entered by Lake Phan DO - 10/03/24 15:19> Attending Attestation: I was consulted by the RAJESH, and we discussed the complexity of problems being addressed. I approved the treatment and management plan for this patient's care in the emergency department, thus performing a substantive portion of the medical decision making. I did personally evaluate this patient. She described an orthostatic syncopal episode, in which she mark from sitting to standing, began experiencing a near syncopal prodrome, followed by complete syncope and a head impact. When she began experiencing this near syncopal prodrome she did develop central chest pain, that is still present at the time of my evaluation. Notably, her medical history includes heart failure with severe reduction of ejection fraction. She did recently see [facility] cardiology and was referred to Advanced Heart Failure clinic for higher level of care over her condition. As discussed in the attached note, her imaging and labs were reassuring that her symptoms were not of cardiac etiology. She did have imaging findings of esophagitis, which responded to treatment in the ER. She also has evidence of orthostatic vital signs -- again which likely contributed to her syncope. She was not overtly volume overloaded on examination, so we treated with a 500 mL bolus of fluids, and gave strict instructions to be cautious of quick positional changes at home that could result in orthostatic syncope. Also strongly advised close follow up with advanced heart failure as previously scheduled. Patient was agreeable with this plan and was ultimately discharged home. Lake Phan DO Discharge Plan Disposition Patient Disposition: Home, Self-Care Condition: Good Prescriptions Prescriptions: New sucralfate [Carafate] 1 gram tablet 1 g PO Q6H 28 Days Qty: 112 0RF No Action biotin 10,000 mcg capsule 10,000 mcg PO DAILY (DME) pen needle, diabetic [BD Ultra-Fine Short Pen Needle] 31 gauge x 5/16 needle See Rx Instructions .ROUTE .MEDSUPPLY Qty: 1200 Rx Instructions: TEST TID (DME) lancets [Accu-Chek Softclix Lancets] Misc See Rx Instructions .Route Rx Instructions: TEST TID (DME) blood-glucose meter [Accu-Chek Guide Glucose Meter] Misc See Rx Instructions .Route Rx Instructions: TEST TID (DME) Accu-Chek Guide test strips Strip See Rx Instructions .Route Rx Instructions: TEST TID magnesium chloride 64 mg magnesium tablet 400 mg PO DAILY tramadol 50 mg tablet 50 mg PO Q6H PRN (Reason: PAIN) Qty: 120 0RF dexlansoprazole 60 mg capsule,biphase delayed releas 60 mg PO DAILY bumetanide 1 mg tablet 1 mg PO DAILY Qty: 30 2RF carvedilol 25 mg tablet See Rx Instructions .ROUTE .COMPLEX Qty: 180 3RF Dose Instruction: TAKE 1 TABLET BY MOUTH TWICE DAILY ; MUST ADMINISTER WITH A MEAL/FOOD Rx Instructions: TAKE 1 TABLET BY MOUTH TWICE DAILY ; MUST ADMINISTER WITH A MEAL/FOOD Entresto 49-51 mg tablet See Rx Instructions .ROUTE .COMPLEX Qty: 180 3RF Dose Instruction: TAKE 1 TABLET BY MOUTH TWICE A DAY Rx Instructions: TAKE 1 TABLET BY MOUTH TWICE A DAY buspirone 10 mg tablet See Rx Instructions .ROUTE .COMPLEX Qty: 60 7RF Dose Instruction: TAKE 1 TABLET BY MOUTH TWICE DAILY MAY CAUSE DROWSINESS Rx Instructions: TAKE 1 TABLET BY MOUTH TWICE DAILY MAY CAUSE DROWSINESS hydroxychloroquine 200 mg tablet See Rx Instructions .ROUTE .COMPLEX Qty: 60 0RF Dose Instruction: TAKE 1 TABLET BY MOUTH TWICE DAILY FOR LUPUS Rx Instructions: TAKE 1 TABLET BY MOUTH TWICE DAILY FOR LUPUS ondansetron HCl 4 mg tablet See Rx Instructions .ROUTE .COMPLEX Qty: 30 0RF Dose Instruction: TAKE 1 TABLET BY MOUTH EVERY 6 TO 8 HOURS DIRECTED Rx Instructions: TAKE 1 TABLET BY MOUTH EVERY 6 TO 8 HOURS DIRECTED spironolactone 25 mg tablet 25 mg PO DAILY Qty: 90 1RF sitagliptin-metformin [Zituvimet XR] 50-500 mg tablet, ER multiphase 24 hr See Rx Instructions .ROUTE .COMPLEX Qty: 60 0RF Dose Instruction: TAKE 1 TABLET BY MOUTH ONCE DAILY Rx Instructions: TAKE 1 TABLET BY MOUTH ONCE DAILY hydroxyzine HCl 25 mg tablet See Rx Instructions .ROUTE .COMPLEX Qty: 90 1RF Dose Instruction: TAKE 1 TABLET BY MOUTH EVERY 8 HOURS NEEDED FOR ANXIETY *MAY CAUSE DROWSINESS* Rx Instructions: TAKE 1 TABLET BY MOUTH EVERY 8 HOURS NEEDED FOR ANXIETY *MAY CAUSE DROWSINESS* triamcinolone acetonide 0.1 % cream See Rx Instructions .ROUTE .COMPLEX Qty: 80 0RF Dose Instruction: APPLY TO AFFECTED AREA TWICE A DAY DIRECTED Rx Instructions: APPLY TO AFFECTED AREA TWICE A DAY DIRECTED baclofen 20 mg tablet See Rx Instructions .ROUTE .COMPLEX Qty: 120 0RF Dose Instruction: TAKE 1 TABLET BY MOUTH FOUR TIMES DAILY Rx Instructions: TAKE 1 TABLET BY MOUTH FOUR TIMES DAILY rosuvastatin 40 mg tablet See Rx Instructions .ROUTE .COMPLEX Qty: 90 2RF Dose Instruction: TAKE 1/2 TABLET BY MOUTH ONCE DAILY Rx Instructions: TAKE 1/2 TABLET BY MOUTH ONCE DAILY Xarelto 20 mg tablet See Rx Instructions .ROUTE .COMPLEX Qty: 30 0RF Dose Instruction: TAKE 1 TABLET BY MOUTH ONCE DAILY WITH FOOD Rx Instructions: TAKE 1 TABLET BY MOUTH ONCE DAILY WITH FOOD gabapentin 600 mg tablet See Rx Instructions .ROUTE .COMPLEX Qty: 60 0RF Dose Instruction: TAKE 1 TABLET BY MOUTH TWICE DAILY MAY CAUSE DROWSINESS Rx Instructions: TAKE 1 TABLET BY MOUTH TWICE DAILY MAY CAUSE DROWSINESS Trulicity 1.5 mg/0.5 mL pen injector See Rx Instructions .ROUTE .COMPLEX Qty: 2 0RF Dose Instruction: INJECT 1.5 MG SUBCUTANEOUSLY ONCE WEEKLY Rx Instructions: INJECT 1.5 MG SUBCUTANEOUSLY ONCE WEEKLY naproxen 375 mg tablet See Rx Instructions .ROUTE .COMPLEX Qty: 60 0RF Dose Instruction: TAKE 1 TABLET BY MOUTH EVERY 12 HOURS NEEDED TAKE WITH FOOD OR MILK Rx Instructions: TAKE 1 TABLET BY MOUTH EVERY 12 HOURS NEEDED TAKE WITH FOOD OR MILK Referrals Follow up/Referrals: Provider,Referral, MD [Referring, Medical] - See instructions Activity Restrictions/Add. Instructions Additional Instructions/Restrictions: Please return to the emergency department any worsening signs or symptoms, please take all medication as prescribed, please follow-up with your zipper trimmer, GI physician, and PCP in the upcoming days/weeks. Clinical Impressions Clinical Impression: Postural syncope, GERD (gastroesophageal reflux disease) Chest pain Qualifiers: Chest pain type: other chest pain Qualified Code(s): R07.89 - Other chest pain Instructions Patient Instructions: DI for Syncope in Adults (Fainting), DI for Gastroesophageal Reflux Disease (GERD), DI for Atypical Chest Pain, DI for Esophagitis Print Language Print Language: Bengali Discharge ED Provider: Lake Phan Adult HPI <STEPHEN Bradley - Last Filed: 10/01/24 17:43> General Chief complaint: Chest Pain Stated complaint: syncope Time Seen by Provider: 10/01/24 13:22 Mode of Arrival: Ambulatory Source of Information: Patient Limitations: No Limitations History of Present Illness HPI narrative: 43-year-old female presents emergency department for a syncopal episode that occurred around 1230/12:45 PM today, patient went from a sitting to standing position when she was doing crafts , when she started to feel like she was going to pass out , she admits to completely full loss of consciousness, believes she was out anywhere from 30 seconds to a minute, this was an unwitnessed syncopal event/fall, does have an abrasion over her right eyebrow/nasal bridge region, admits to hitting the head, she is on anticoagulant therapy with Xarelto, patient denies any fever chills, admits to chest pain/pressure, they did start prior to the syncopal event, at maximal was a 11 out of 10 , currently a 7 out of 10, nonradiating, right substernally located, with accompanying shortness of breath, she currently admits to some lightheadedness, no real dizziness or room spinning sensation, denies any headache or neck pain, admits to nausea no vomiting no abdominal pain, no constipation no diarrhea no urinary type symptomatology, no hematuria melena hematochezia hematemesis, patient is a non-smoker, denies any alcohol or drug use, other past medical history is consistent with T2DM, degenerative disc disease of the spine, ICD implant, history of PE, iron deficient anemia, nonischemic cardiomyopathy, history triage vitals noted for tachycardia, otherwise unremarkable. Please note that above description of symptoms, in this electronic medical record under categorization of recalled from ER triage doctor by RN are reflective of an initial nursing assessment, however, is not reflective of my full history and physical exam that was personally taken and clarified. Consequentially, this preceding description of symptoms, which may include the patient's categorized chief complaint in the EMR, do not reflect my personal clinical impression, and the ultimate description of history of present illness and patient stated complaints should be deferred to this section of the note. Unless stated otherwise or congruent with this section of the note, additional signs, symptoms, or incongruence should be interpreted as inaccurate with my clinical impression. Onset (ago): hour(s) Related Data Home Medications ?Medication ?Instructions ?Recorded ?Confirmed biotin 10,000 mcg capsule 10,000 mcg PO DAILY Suppleme nt 03/15/17 09/28/24 magnesium chloride 64 mg 400 mg PO DAILY 10/26/2206/19 (magnesium chloride) tablet blood sugar diagnostic (Accu-Chek 09/17/23 09/28/24 Guide test strips) blood-glucose meter (Accu-Chek 09/17/23 09/28/24 Guide Glucose Meter) lancets (Accu-Chek Softclix 09/17/23 09/28/24 Lancets) pen needle, diabetic 31 gauge x #1,200 ea 09/17/2306/19 (BD Ultra-Fine Short Pen Needle) dexlansoprazole 60 mg 60 mg PO DAILY 09/28/2406/19 capsule,biphase delayed release Previous Rx's ?Medication ?Instructions ?Recorded carvedilol 25 mg tablet See Rx Instructions .Route 0 11/13/23 .COMPLEX #180 tabs sacubitril 49 mg-valsartan 51 mg See Rx Instructions . Route 03/13/24 tablet (Entresto) .COMPLEX #180 tabs buspirone 10 mg tablet See Rx Instructions .Route 0 04/13/24 .COMPLEX #60 tabs hydroxychloroquine 200 mg tablet See Rx Instructions . Route 04/13/24 .COMPLEX #60 tabs ondansetron HCl 4 mg tablet See Rx Instructions .Route 06/01/24 .COMPLEX #30 ea tramadol 50 mg tablet 50 mg PO Q6H PRN PAIN #120 t abs 06/26/24 spironolactone 25 mg tablet 25 mg PO DAILY Fluid #90 t abs 08/03/24 hydroxyzine HCl 25 mg tablet See Rx Instructions .Rout e 08/11/24 .COMPLEX #90 tabs sitagliptin 50 mg-metformin ER 500 See Rx Instructions .Route 08/11/24 mg tablet,extended rel 24hr mphase .COMPLEX #60 tabs (Zituvimet XR) baclofen 20 mg tablet See Rx Instructions .Route 0 08/26/24 .COMPLEX #120 tabs triamcinolone acetonide 0.1 % See Rx Instructions .Rou te 08/26/24 topical cream .COMPLEX #80 grams rosuvastatin 40 mg tablet See Rx Instructions .Route 0 09/10/24 .COMPLEX #90 tabs gabapentin 600 mg tablet See Rx Instructions .Route 0 09/11/24 .COMPLEX #60 tabs rivaroxaban 20 mg tablet (Xarelto) See Rx Instructions .Route 09/11/24 .COMPLEX #30 tabs dulaglutide 1.5 mg/0.5 mL See Rx Instructions .Route 0 09/23/24 subcutaneous pen injector .COMPLEX #2 mL (Trulicity) bumetanide 1 mg tablet 1 mg PO DAILY #30 tabs 09/28 naproxen 375 mg tablet See Rx Instructions .Route 0 09/29/24 .COMPLEX #60 tabs sucralfate 1 gram tablet (Carafate) 1 g PO Q6H 4 weeks #112 tabs 10/01/24 Allergies Allergy/AdvReac Type Severity Reaction Status Date / Time prednisone Allergy Unknown Verified 09/28/24 09:27 allergy reaction empagliflozin (From AdvReac Mild Unknown Verified 09/28/24 09:27 Jardiance) allergy reaction dapagliflozin (From Farxiga) AdvReac Cramping Verified 09/28/24 09:27 of the Muscles [facility] <STEPHEN Bradley - Last Filed: 10/01/24 17:43> [facility] Disclaimer: The information contained in this section may have been updated after the patient was seen, as this information can be updated by other users. 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 Type 2 diabetes mellitus without complications Implantable cardioverter-defibrillator (ICD) at end of battery life History of cardiac pacemaker Acute pharyngitis Tenderness of chest wall Pacemaker Anxiety and depression CHF (congestive heart failure) Dyspnea Chronic systolic heart failure Post-tonsillectomy hemorrhage Pulmonary hypertension Diabetes mellitus Epicondylitis Nonischemic cardiomyopathy SOB (shortness of breath) Edema Palpitations Diastolic dysfunction Hyperlipidemia Iron deficiency anemia History of pulmonary embolus (PE) Hypertensive heart disease Cardiomyopathy Hypertensive disorder Surgical History History of cholecystectomy H/O removal of cyst leg, thumb and knee History of tonsillectomy History of carpal tunnel release of both wrists H/O: hysterectomy History of appendectomy Family History Other Family history of cancer Family history of diabetes mellitus Social History Smoking Status: Never smoker second hand exposure: No alcohol intake: never counseling provided: none substance use type: denies use current occupational status: other Travel in the last 8 weeks?: None household members: spouse housing: house 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 Have you lived/traveled outside [place] in past 30 days?: No Contact w/someone who lives/traveled outside [place] past 30 days?: No Exposure to someone with infectious disease in past 14 days?: No Do you have a fever (greater than 100.4 F or 38 C)?: No Have you tested positive for COVID-19?: No Exposed to someone with COVID-19 in past 14 days?: No Do you have a sore throat?: No Do you have a cough?: No Do you have any weakness?: No Do you have any diarrhea?: No Are you experiencing any unusual bleeding?: No Do you have any muscle aches/pain?: No Do you have any abdominal pain?: No Are you experiencing loss of taste or smell?: No Other 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 Have you received the Flu Vaccine for this season: No Have you received the Pneumonia Vaccine: No <STEPHEN Bradley - Last Filed: 10/01/24 17:43> ROS Obtained: Yes All systems reviewed & no additional complaints except as documented Physical Exam <STEPHEN Bradlye - Last Filed: 10/01/24 17:43> General General appearance: alert and in no apparent distress Comment: Somewhat pale appearing female, Head Head exam: atraumatic and normocephalic Eye Eye exam: Present normal appearance, PERRL and EOMI Neck Neck exam: Present full ROM; Absent meningismus Chest Chest inspection: Present normal inspection and symmetric chest wall rise; Absent tenderness Respiratory Respiratory exam: Absent respiratory distress, wheezes, stridor, accessory muscle use or prolonged expiratory phase Cardiovascular Cardiovascular exam: Present normal rhythm, tachycardia and other (Pulses equal and symmetric in bilateral upper and lower extremities) Abdominal Exam Abdominal exam: Absent distention, tenderness, guarding or rebound Extremities Exam Extremities exam: Absent edema Back Exam Back exam: Present normal inspection, full ROM and paraspinal tenderness; Absent tenderness or vertebral tenderness Comment: No spinal tenderness or paraspinal tenderness to the C-spine T-spine or L-spine, no obvious traumatic injury, Neurological Exam Neurological exam: Present alert Psychiatric Psychiatric exam: Present normal affect Skin Skin exam: Present warm, dry and other (Mild abrasion noted to the nasal bridge/right eyebrow region, no active bleeding,) Medical Decision Making <STEPHEN Bradley - Last Filed: 10/01/24 17:43> Medical Records Medical records reviewed: Yes I reviewed the patient's medical records. Screening: Per USPSTF and CDC recommendations, given the prevalence of disease in our region, it is our hospital?s policy to screen for HIV and viral Hepatitis for all patients aged 18 and over and those with ongoing risk factors. Robbie Inquiry Pt receiving controlled substance: Yes Robbie was queried for this patient: No Reason not queried -: Emergent pt cond-no time Risks and benefits of using a controlled substance: were discussed with pt by me Vital Signs: 10/01/24 13:31 10/01/24 13:32 10/01/24 13:34 Temperature 98.4 F Temperature Source Oral Pulse Rate 105 H 104 H Pulse Rate [Orthostatic Lying Radial] Pulse Rate [Orthostatic Sitting Right Radial] Pulse Rate [Orthostatic Standing Right Radial] Pulse Rate [Right Radial] 108 H Respiratory Rate 23 24 18 Blood Pressure 86/53 L 106/61 L Blood Pressure [Orthostatic Lying Right Arm] Blood Pressure [Orthostatic Sitting Right Arm] Blood Pressure [Orthostatic Standing Right Arm] Blood Pressure [Right Arm] 107/62 L Blood Pressure Mean [Right Arm] 77 Blood Pressure Source [Right Arm] Automatic Cuff Blood Pressure Position [Right Arm] Sitting 02 Sat by Pulse Oximetry 96 97 97 Oxygen Delivery Method Room Air 10/01/24 13:42 10/01/24 13:53 10/01/24 14:30 Temperature Temperature Source Pulse Rate 102 H 105 H Pulse Rate [Orthostatic Lying Radial] 101 H Pulse Rate [Orthostatic Sitting Right Radial] Pulse Rate [Orthostatic Standing Right Radial] Pulse Rate [Right Radial] Respiratory Rate 13 Blood Pressure Blood Pressure [Orthostatic Lying Right Arm] 116/74 Blood Pressure [Orthostatic Sitting Right Arm] Blood Pressure [Orthostatic Standing Right Arm] Blood Pressure [Right Arm] Blood Pressure Mean [Right Arm] Blood Pressure Source [Right Arm] Blood Pressure Position [Right Arm] 02 Sat by Pulse Oximetry 95 Oxygen Delivery Method 10/01/24 15:02 10/01/24 15:13 10/01/24 15:15 Temperature Temperature Source Pulse Rate 102 H 104 H 108 H Pulse Rate [Orthostatic Lying Radial] Pulse Rate [Orthostatic Sitting Right Radial] Pulse Rate [Orthostatic Standing Right Radial] Pulse Rate [Right Radial] Respiratory Rate Blood Pressure 104/64 L 116/74 163/88 H Blood Pressure [Orthostatic Lying Right Arm] Blood Pressure [Orthostatic Sitting Right Arm] Blood Pressure [Orthostatic Standing Right Arm] Blood Pressure [Right Arm] Blood Pressure Mean [Right Arm] Blood Pressure Source [Right Arm] Blood Pressure Position [Right Arm] 02 Sat by Pulse Oximetry 96 95 94 L Oxygen Delivery Method 10/01/24 15:17 10/01/24 15:19 10/01/24 15:20 Temperature Temperature Source Pulse Rate 106 H Pulse Rate [Orthostatic Lying Radial] Pulse Rate [Orthostatic Sitting Right Radial] 111 H Pulse Rate [Orthostatic Standing Right Radial] 108 H Pulse Rate [Right Radial] Respiratory Rate Blood Pressure 100/67 L Blood Pressure [Orthostatic Lying Right Arm] Blood Pressure [Orthostatic Sitting Right Arm] 163/88 H Blood Pressure [Orthostatic Standing Right Arm] 100/67 L Blood Pressure [Right Arm] Blood Pressure Mean [Right Arm] Blood Pressure Source [Right Arm] Blood Pressure Position [Right Arm] 02 Sat by Pulse Oximetry 96 Oxygen Delivery Method 10/01/24 15:31 10/01/24 16:11 10/01/24 16:24 Temperature Temperature Source Pulse Rate 103 H 106 H 105 H Pulse Rate [Orthostatic Lying Radial] Pulse Rate [Orthostatic Sitting Right Radial] Pulse Rate [Orthostatic Standing Right Radial] Pulse Rate [Right Radial] Respiratory Rate Blood Pressure 160/107 H 85/54 L Blood Pressure [Orthostatic Lying Right Arm] Blood Pressure [Orthostatic Sitting Right Arm] Blood Pressure [Orthostatic Standing Right Arm] Blood Pressure [Right Arm] Blood Pressure Mean [Right Arm] Blood Pressure Source [Right Arm] Blood Pressure Position [Right Arm] 02 Sat by Pulse Oximetry 94 L 95 95 Oxygen Delivery Method 10/01/24 16:30 10/01/24 17:00 10/01/24 17:30 Temperature Temperature Source Pulse Rate 109 H 101 H 95 H Pulse Rate [Orthostatic Lying Radial] Pulse Rate [Orthostatic Sitting Right Radial] Pulse Rate [Orthostatic Standing Right Radial] Pulse Rate [Right Radial] Respiratory Rate Blood Pressure 130/86 110/75 134/67 Blood Pressure [Orthostatic Lying Right Arm] Blood Pressure [Orthostatic Sitting Right Arm] Blood Pressure [Orthostatic Standing Right Arm] Blood Pressure [Right Arm] Blood Pressure Mean [Right Arm] Blood Pressure Source [Right Arm] Blood Pressure Position [Right Arm] 02 Sat by Pulse Oximetry 96 94 L 91 L Oxygen Delivery Method Lab Data Lab results reviewed: Yes I reviewed the patient's lab results. Lab Results 10/01/24 13:30: WBC 16.7 H, RBC 5.08, Hgb 12.6, Hct 39.7, MCV 78.1 L, MCH 24.8 L , MCHC 31.7 L, RDW 14.7, Plt Count 281, MPV 10.3, Neut % (Auto) 90.3 H, Lymph % (Auto) 5.5 L, Pratt % (Auto) 1.6 L, Eos % (Auto) 2.0, Baso % (Auto) 0.2, Neut # (Auto) 15.0 H, Lymph # (Auto) 0.9, Pratt # (Auto) 0.3, Eos # (Auto) 0.3, Baso # (Auto) 0.0, Sodium 133 L, Potassium 4.9, Chloride 98, Carbon Dioxide 27, Anion Gap 12.9, BUN 14, Creatinine 1.00, Estimated Creat Clear 59, Estimated GFR 60, Est GFR ( Amer) 73, Glucose 256 H, Calcium 10.2, Magnesium 1.6, Total Bilirubin 0.7, AST 53 H, ALT 47, Alkaline Phosphatase 149 H, Troponin I < 0.01, NT-Pro-B Natriuret Pep 59.2, Total Protein 8.4 H, Albumin 4.8, Globulin 3.6 H, Albumin/Globulin Ratio 1.3, Lipase 186 10/01/24 16:10: Troponin I < 0.01 10/01/24 13:30 10/01/24 13:30 Orders (Tests/Meds): ED MEDICATIONS Generic Name Dose Route Start Last Admin Trade Name Freq PRN Reason Stop Dose Admin Sodium Chloride 1,000 mls @ 500 mls/hr 10/01/24 17:04 10/01/24 17:10 Sod Chlor 0.9% 1000ml Bag IV 10/01/24 19:03 500 mls/hr .Q2H ONE Administration Sodium Chloride 10 ml 10/01/24 14:21 10/01/24 14:26 Sodium Chloride 0.9% 10ml Syr (Rad Only) IV 10/31/24 14:20 10 ml NEEDED PRN Administration Maintain IV Site Discontinued Medications Generic Name Dose Route Start Last Admin Trade Name Mariola PRN Reason Stop Dose Admin Belladonna Alkaloids 60 ml 10/01/24 16:47 10/01/24 16:53 Belladonna Alkaloids 60 Ml Ml PO 10/01/24 16:48 60 ml ONCE ONE Administration Iopamidol 160 ml 10/01/24 14:21 10/01/24 14:26 Iopamidol-370 (76%);100ml Bottle IV 10/01/24 14:22 160 ml ONCE ONE Administration Morphine Sulfate 2 mg 10/01/24 13:35 10/01/24 13:45 Morphine 4mg/Ml Syringe IV 10/01/24 13:36 2 mg ONCE ONE Administration Morphine Sulfate 2 mg 10/01/24 16:05 10/01/24 16:23 Morphine 2mg/Ml Syringe IV 10/01/24 16:06 2 mg ONCE ONE Administration Ondansetron HCl 4 mg 10/01/24 13:35 10/01/24 13:45 Ondansetron 4mg/2ml Vial IV 10/01/24 13:36 4 mg ONCE ONE Administration Sodium Chloride 100 ml 10/01/24 14:21 10/01/24 14:26 0.9 % Sodium Chloride 50 Ml Vial IV 10/01/24 14:22 100 ml ONCE ONE Administration ORDERS Category Date Time Status CT angio chest PE protocol Stat Cat Scan 10/01/24 13:[address] angio head Stat Cat Scan 10/01/24 13:[address] angio neck Stat Cat Scan 10/01/24 13:[address] cervical spine wo con Stat Cat Scan 10/01/24 13:[address] head/brain wo con Stat Cat Scan 10/01/24 13:30 Completed XR chest portable Stat Exams 10/01/24 13:28 Completed Complete Blood Count Auto Diff Stat Lab 10/01/24 13:30 Completed Comprehensive Metabolic Panel Stat Lab 10/01/24 13:30 Completed Lipase Stat Lab 10/01/24 13:30 Completed Magnesium Stat Lab 10/01/24 13:30 Completed NT Pro Brain Natriuretic Pep. Stat Lab 10/01/24 13:30 Completed Troponin I Q3H Lab 10/01/24 16:10 Completed Troponin I Q3H Lab 10/01/24 19:30 Ordered Troponin I Stat Lab 10/01/24 13:30 Completed Medical Decision Narrative: 43-year-old female presents emergency department with chest pain, syncopal episode, falling and striking the head, differential diagnosis include but not limited to, PE, cardiac arrhythmia, electrolyte disturbance, ACS, vasovagal syncope, cardiogenic syncope, postural syncope, orthostatic hypotension, hypovolemia, situational syncope among others. I discussed this patient's case with the attending physician Dr. Phan as well as attending physician , they saw and examined the patient as well. Will obtain basic laboratory studies, magnesium level, lipase level, proBNP, troponin, EKG, will give 2 mg IV morphine for pain, and 4 mg of Zofran for nausea, will obtain chest x-ray, CT head without contrast, CT cervical spine without contrast, CTA chest without contrast PE protocol, CT angiograms of the head and neck with and without contrast, will also obtain orthostatic vital signs. CMP is noted for mild hyponatremia, mild hyperglycemia at 256, AST is minimally elevated at 53, ALP is been elevated for 149, lipase in normal limits otherwise unremarkable CMP. CBC is noted for mild leukocytosis at 16.7, MCV is decreased at around 78, however this appears to be within patient's baseline otherwise unremarkable CBC. Initial troponin is less than 0.01, proBNP within normal limits, lipase in normal limits. I reviewed the patient's chest x-ray along with corresponding radiologic report, no acute cardiopulmonary process. I reviewed the patient's CT head without contrast along the corresponding radiologic report, no acute intracranial antibiotic, chronic left maxillary sinusitis. I reviewed the patient's CT cervical spine without contrast, along with the corresponding radiologic report no acute fracture. I reviewed the patient's CTA neck and CTA head with and without contrast along with corresponding radiologic report, no significant arterial abnormality, no evidence of occlusion or aneurysm. Of note, nursing staff notified me at approximate 4 PM the patient was complaining of some chest pain again, will give additional dose of 2 mg IV morphine for pain. Repeat troponin is less than 0.01. Reviewed the patient's CTA chest without contrast PE protocol, no pulmonary embolus or dissection, findings are upper esophagitis, recommend upper endoscopy. Will give GI cocktail p.o. for symptomatic relief. Patient had positive orthostatic vital signs, her sitting blood pressure was 163 systolic, while standing was 100 systolic, lying was 116 systolic. Will give 500 mL liter IV NS, for orthostasis. Upon review of patient's medical record, patient has a EF of 35% in 2023, recently seen by cardiology clinic, scheduled for cardiac MRI and follow-up in advanced heart failure clinic with [facility], patient recently stopped her Lasix and started on Bumex. This could be the cause of orthostatic hypotension versus syncopal episode today. Reexamination of the patient at approximately 5:15 PM, patient still has some pressure, but the chest pain is largely resolved, she is remained hemodynamically stable, tachycardia is improved, patient is cleared to be discharged home to self-care, after long discussion with all the results of her testing at the bedside, patient is slated for EGD later this month, I do believe the patient has some degree of esophageal spasm versus esophagitis that could be causing her symptomatology, patient already is taking a PPI, thus will prescribe Carafate 10 ml po or until GI follow-up. Patient voiced understanding and agreement Contreet plan/discharge plan. Patient was given strict ED return precautions. I do believe the patient's syncopal episode was most likely in part due to orthostatic hypotension with patient from sitting to standing position and had prodromal symptomatology. <[place], - Last Filed: 10/01/24 14:33> Vital Signs: 10/01/24 13:31 10/01/24 13:32 10/01/24 13:34 Temperature 98.4 F Temperature Source Oral Pulse Rate 105 H 104 H Pulse Rate [Orthostatic Lying Radial] Pulse Rate [Orthostatic Sitting Right Radial] Pulse Rate [Orthostatic Standing Right Radial] Pulse Rate [Right Radial] 108 H Respiratory Rate 23 24 18 Blood Pressure 86/53 L 106/61 L Blood Pressure [Orthostatic Lying Right Arm] Blood Pressure [Orthostatic Sitting Right Arm] Blood Pressure [Orthostatic Standing Right Arm] Blood Pressure [Right Arm] 107/62 L Blood Pressure Mean [Right Arm] 77 Blood Pressure Source [Right Arm] Automatic Cuff Blood Pressure Position [Right Arm] Sitting 02 Sat by Pulse Oximetry 96 97 97 Oxygen Delivery Method Room Air 10/01/24 13:42 10/01/24 13:53 10/01/24 14:30 Temperature Temperature Source Pulse Rate 102 H 105 H Pulse Rate [Orthostatic Lying Radial] 101 H Pulse Rate [Orthostatic Sitting Right Radial] Pulse Rate [Orthostatic Standing Right Radial] Pulse Rate [Right Radial] Respiratory Rate 13 Blood Pressure Blood Pressure [Orthostatic Lying Right Arm] 116/74 Blood Pressure [Orthostatic Sitting Right Arm] Blood Pressure [Orthostatic Standing Right Arm] Blood Pressure [Right Arm] Blood Pressure Mean [Right Arm] Blood Pressure Source [Right Arm] Blood Pressure Position [Right Arm] 02 Sat by Pulse Oximetry 95 Oxygen Delivery Method 10/01/24 15:02 10/01/24 15:13 10/01/24 15:15 Temperature Temperature Source Pulse Rate 102 H 104 H 108 H Pulse Rate [Orthostatic Lying Radial] Pulse Rate [Orthostatic Sitting Right Radial] Pulse Rate [Orthostatic Standing Right Radial] Pulse Rate [Right Radial] Respiratory Rate Blood Pressure 104/64 L 116/74 163/88 H Blood Pressure [Orthostatic Lying Right Arm] Blood Pressure [Orthostatic Sitting Right Arm] Blood Pressure [Orthostatic Standing Right Arm] Blood Pressure [Right Arm] Blood Pressure Mean [Right Arm] Blood Pressure Source [Right Arm] Blood Pressure Position [Right Arm] 02 Sat by Pulse Oximetry 96 95 94 L Oxygen Delivery Method 10/01/24 15:17 10/01/24 15:19 10/01/24 15:20 Temperature Temperature Source Pulse Rate 106 H Pulse Rate [Orthostatic Lying Radial] Pulse Rate [Orthostatic Sitting Right Radial] 111 H Pulse Rate [Orthostatic Standing Right Radial] 108 H Pulse Rate [Right Radial] Respiratory Rate Blood Pressure 100/67 L Blood Pressure [Orthostatic Lying Right Arm] Blood Pressure [Orthostatic Sitting Right Arm] 163/88 H Blood Pressure [Orthostatic Standing Right Arm] 100/67 L Blood Pressure [Right Arm] Blood Pressure Mean [Right Arm] Blood Pressure Source [Right Arm] Blood Pressure Position [Right Arm] 02 Sat by Pulse Oximetry 96 Oxygen Delivery Method 10/01/24 15:31 10/01/24 16:11 10/01/24 16:24 Temperature Temperature Source Pulse Rate 103 H 106 H 105 H Pulse Rate [Orthostatic Lying Radial] Pulse Rate [Orthostatic Sitting Right Radial] Pulse Rate [Orthostatic Standing Right Radial] Pulse Rate [Right Radial] Respiratory Rate Blood Pressure 160/107 H 85/54 L Blood Pressure [Orthostatic Lying Right Arm] Blood Pressure [Orthostatic Sitting Right Arm] Blood Pressure [Orthostatic Standing Right Arm] Blood Pressure [Right Arm] Blood Pressure Mean [Right Arm] Blood Pressure Source [Right Arm] Blood Pressure Position [Right Arm] 02 Sat by Pulse Oximetry 94 L 95 95 Oxygen Delivery Method 10/01/24 16:30 10/01/24 17:00 10/01/24 17:30 Temperature Temperature Source Pulse Rate 109 H 101 H 95 H Pulse Rate [Orthostatic Lying Radial] Pulse Rate [Orthostatic Sitting Right Radial] Pulse Rate [Orthostatic Standing Right Radial] Pulse Rate [Right Radial] Respiratory Rate Blood Pressure 130/86 110/75 134/67 Blood Pressure [Orthostatic Lying Right Arm] Blood Pressure [Orthostatic Sitting Right Arm] Blood Pressure [Orthostatic Standing Right Arm] Blood Pressure [Right Arm] Blood Pressure Mean [Right Arm] Blood Pressure Source [Right Arm] Blood Pressure Position [Right Arm] 02 Sat by Pulse Oximetry 96 94 L 91 L Oxygen Delivery Method Lab Data Lab Results 10/01/24 13:30: WBC 16.7 H, RBC 5.08, Hgb 12.6, Hct 39.7, MCV 78.1 L, MCH 24.8 L , MCHC 31.7 L, RDW 14.7, Plt Count 281, MPV 10.3, Neut % (Auto) 90.3 H, Lymph % (Auto) 5.5 L, Pratt % (Auto) 1.6 L, Eos % (Auto) 2.0, Baso % (Auto) 0.2, Neut # (Auto) 15.0 H, Lymph # (Auto) 0.9, Pratt # (Auto) 0.3, Eos # (Auto) 0.3, Baso # (Auto) 0.0, Sodium 133 L, Potassium 4.9, Chloride 98, Carbon Dioxide 27, Anion Gap 12.9, BUN 14, Creatinine 1.00, Estimated Creat Clear 59, Estimated GFR 60, Est GFR ( Amer) 73, Glucose 256 H, Calcium 10.2, Magnesium 1.6, Total Bilirubin 0.7, AST 53 H, ALT 47, Alkaline Phosphatase 149 H, Troponin I < 0.01, NT-Pro-B Natriuret Pep 59.2, Total Protein 8.4 H, Albumin 4.8, Globulin 3.6 H, Albumin/Globulin Ratio 1.3, Lipase 186 10/01/24 16:10: Troponin I < 0.01 Orders (Tests/Meds): ED MEDICATIONS Generic Name Dose Route Start Last Admin Trade Name Freq PRN Reason Stop Dose Admin Sodium Chloride 1,000 mls @ 500 mls/hr 10/01/24 17:04 10/01/24 17:10 Sod Chlor 0.9% 1000ml Bag IV 10/01/24 19:03 500 mls/hr .Q2H ONE Administration Sodium Chloride 10 ml 10/01/24 14:21 10/01/24 14:26 Sodium Chloride 0.9% 10ml Syr (Rad Only) IV 10/31/24 14:20 10 ml NEEDED PRN Administration Maintain IV Site Discontinued Medications Generic Name Dose Route Start Last Admin Trade Name Freq PRN Reason Stop Dose Admin Belladonna Alkaloids 60 ml 10/01/24 16:47 10/01/24 16:53 Belladonna Alkaloids 60 Ml Ml PO 10/01/24 16:48 60 ml ONCE ONE Administration Iopamidol 160 ml 10/01/24 14:21 10/01/24 14:26 Iopamidol-370 (76%);100ml Bottle IV 10/01/24 14:22 160 ml ONCE ONE Administration Morphine Sulfate 2 mg 10/01/24 13:35 10/01/24 13:45 Morphine 4mg/Ml Syringe IV 10/01/24 13:36 2 mg ONCE ONE Administration Morphine Sulfate 2 mg 10/01/24 16:05 10/01/24 16:23 Morphine 2mg/Ml Syringe IV 10/01/24 16:06 2 mg ONCE ONE Administration Ondansetron HCl 4 mg 10/01/24 13:35 10/01/24 13:45 Ondansetron 4mg/2ml Vial IV 10/01/24 13:36 4 mg ONCE ONE Administration Sodium Chloride 100 ml 10/01/24 14:21 10/01/24 14:26 0.9 % Sodium Chloride 50 Ml Vial IV 10/01/24 14:22 100 ml ONCE ONE Administration ORDERS Category Date Time Status CT angio chest PE protocol Stat Cat Scan 10/01/24 13:[address] angio head Stat Cat Scan 10/01/24 13:[address] angio neck Stat Cat Scan 10/01/24 13:[address] cervical spine wo con Stat Cat Scan 10/01/24 13:[address] head/brain wo con Stat Cat Scan 10/01/24 13:30 Completed XR chest portable Stat Exams 10/01/24 13:28 Completed Complete Blood Count Auto Diff Stat Lab 10/01/24 13:30 Completed Comprehensive Metabolic Panel Stat Lab 10/01/24 13:30 Completed Lipase Stat Lab 10/01/24 13:30 Completed Magnesium Stat Lab 10/01/24 13:30 Completed NT Pro Brain Natriuretic Pep. Stat Lab 10/01/24 13:30 Completed Troponin I Q3H Lab 10/01/24 16:10 Completed Troponin I Q3H Lab 10/01/24 19:30 Ordered Troponin I Stat Lab 10/01/24 13:30 Completed ECG Data Tracing #1: I reviewed this ECG and interpreted as documented below: EKG personally interpreted by me demonstrates a ventricular paced rhythm with a rate of 102 bpm, right axis, no DC prolongation, wide QRS with left bundle branch block morphology, no QTc prolongation. No ST elevation or depression. No overt signs of ischemia. Critical Care <STEPHEN Bradley - Last Filed: 10/01/24 17:43> Critical Care Time Critical Care Time: No
--- NOTE | 2024-10-01 13:27 | PC.NURSE ---
FSBS 287
--- NOTE | 2024-10-01 13:28 | XR_ITS ---
FINAL REPORT CLINICAL HISTORY: SOB/CP COMPARISON: 11/04/2023 FINDINGS: A single view of the chest was obtained. The heart size is upper limits of normal. A left-sided pacemaker is identified. The mediastinum is normal. There is no focal infiltrate or edema. There are no pleural effusions. There is no pneumothorax. There is no osseous abnormality. IMPRESSION: No acute cardiopulmonary process. Reviewed, Interpreted and Dictated by Rubens Rivera MD Transcribed by Bridget Vasquez Authenticated and [facility]
--- NOTE | 2024-10-01 13:29 | CT_ITS ---
FINAL REPORT TECHNIQUE: The patient was injected with IV contrast. Axial images were obtained through the chest in a PE protocol. 3-D reconstruction images were also performed. Individualized dose reduction techniques using automated exposure control or adjustment of the MA and/or KV according to patient's size were employed. CLINICAL HISTORY: Syncopal episode, hx of PE, CP FINDINGS: Streak artifact is seen from left upper anterior chest wall pacemaker. Mediastinal vasculature is adequately opacified. No pulmonary artery filling defects are identified to suggest PE. There is no aortic dissection. There is no axillary adenopathy. There is no hilar or mediastinal adenopathy. The asthma is pedicle is prominent measuring up to 1.6 cm. The heart size is normal. There is no pericardial or pleural effusion. There is abnormal mucosal thickening in the distal esophagus measuring up to 10 mm, concern for esophagitis. Limited images of the upper abdomen reveal fatty infiltration of the liver. The gallbladder is absent. No suspicious infiltrate or nodule is identified. IMPRESSION: No pulmonary embolus or dissection. Findings concerning for esophagitis. Recommend upper endoscopy. Reviewed, Interpreted and Dictated by Rubens Rivera MD Transcribed by Doreen Uribe Authenticated and [facility]
--- NOTE | 2024-10-01 13:30 | CT_ITS ---
FINAL REPORT TECHNIQUE: Axial images were obtained of the cervical spine by computed tomography. Coronal and sagittal reconstruction process performed. This study was performed with techniques to keep radiation doses as low as reasonably achievable (ALARA). Individualized dose reduction techniques using automated exposure control or adjustment of mA and/or kV according to the patient's size were employed. CLINICAL HISTORY: Fall, neck pain COMPARISON: None FINDINGS: Cervical vertebrae show normal height. Disc spaces are well-preserved. There is no malalignment. The facets are properly aligned. There is no evidence of an acute fracture. There is streak artifact from the left upper anterior chest wall pacemaker. IMPRESSION: No acute fracture. Reviewed, Interpreted and Dictated by Rubens Rivera MD Transcribed by Bridget Vasquez Authenticated and [facility]
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
--- NOTE | 2024-10-01 13:34 | CT_ITS ---
FINAL REPORT TECHNIQUE: NASCET technique utilized for stenosis evaluation. CLINICAL HISTORY: Syncopal episode, dizziness, lightheaded FINDINGS: Streak artifact is seen arising from left upper anterior chest wall pacemaker. RIGHT CAROTID: No significant stenosis is seen of the cervical common or internal carotid artery. LEFT CAROTID: No significant stenosis seen of the cervical common or internal carotid artery. VERTEBRALS: The vertebral arteries are patent and symmetric. No significant stenosis is present. IMPRESSION: No significant arterial abnormality. Reviewed, Interpreted and Dictated by Rubens Rivera MD Transcribed by Doreen Uribe Authenticated and . [facility]
--- NOTE | 2024-10-01 13:34 | CT_ITS ---
FINAL REPORT TECHNIQUE: thin section axial CT with and without IV contrast supplemented with multiplanar 3-D reconstruction of the head. This study was performed with techniques to keep radiation doses as low as reasonably achievable, (ALARA)individualized dose reduction techniques using automated exposure control or adjustment of mA and/or kV according to the patient's size were employed. CLINICAL HISTORY: Syncopal episode, dizziness, lightheaded FINDINGS: The cranial circulation is unremarkable. There is no significant stenosis, aneurysm or occlusion. There is a retention cyst or polyp in the left maxillary sinus. IMPRESSION: No evidence of occlusion or aneurysm. Reviewed, Interpreted and Dictated by Rubens Rivera MD Transcribed by Doreen Uribe Authenticated and [facility]
--- OUTSIDE RECORDS SUMMARY | 2024-10-01 13:34 | XMS_ITS | Encounter Summary ---
Author Organization [facility] ystem Address [address] [place] [address] Care Team Providers Care Printed Forms Proofreader Name Role Phone Unavailable Primary Care Provider Unavailabl e Encounter Details Date Type Department Care Team (Late st Contact Info) Description 03/02/[address] [facility] HISTORICAL CONV [address] [place] [address] Interface, See Report Social History Tobacco Use Types Packs/Day Years Used Date Smoking Tobacco: Never Assessed Comments Unknown Sex and Gender Information Value Date Recorded Sex Assigned at Not on file Legal Sex Female 1:37 PM EDT Gender Identity Not on file Sexual Orientation Not on file documented as of this encounter Consult Notes * Interface, See Report - 03/02/2013 12:00 AM EST TERRITORY BUSINESS MANAGER-Oncology Services [address] [place] [address] Patient: JOYCELYN CRUZ MR #: [id number] : 1980 Date of Visit: 03/02 Referring Physician: Dictated By: Malcolm Nuñez MD Diagnosis: AUB FIBROIDS MORBID OBESITY H/O PULMONARY EMBOLI ( COUMADIN) Allergies: NKDA History of present illness: AUB SINCE 1998. SHE WENT 2 YRS WITH AMENORRHEA. SHE WENT TO DR. WOODS IN [place]. HE PUT HER ON BCP. HER MENSES WERE STILL IRREGULAR. SHE WAS NOT HAPPY WITH HIS CARE, AND MADE AN APPT WITH JANIS, HAD AN U/S, WAS GIVEN A DIFFERENT TYPE OF BCP(OCELLA), DEVELOPED BLOOD CLOTS, HEART ISSUES. WENT OFF BCP. W ENT TO DR. TRIANA, WHO DID SOME STUDIES, AND SENT HER HERE. MULT ATTEMPTS AT IN OFFICE ENDOMETRIAL BX W/OUT ANY LUCK, DUE TO TUMOR BLOCKAGE. Past family and/or social history: Family history: MAUNT- BREAST CANCER AT 40, SHE ALSO HAD COLON CANCER( SHE HAD METS); ANOTHER MAUNTWITH BR CANCER IN HER 50'S, SHE ALSO HAD A HYST FOR CANCER CELLS IN HER OVARIES OR IN HER UTERUS; MGF- LUNG CANCER; MOM- DIABETES /HTN; MGM- HTN; FATHER'S SIDE IS UNKNOWN Social history: Tobacco Y N PPD ETOH Y N # Drinks Marital Status M Occupation NONE Past medical history: Medical: CARDIOMYOPATHY; CHF; HTN; H/O BLE PE; FIBROIDS/AUB; BLOOD CLOTTING DISORDER ; BLE SWELLING Surgical: APPY Health maintenance: Mammogram: NEVER Colonoscopy: NEVER Pap smear: Tumor Marker: CT Scan: BMD: NEVER Ultrasound: Review of systems: Constitutional: + MORBID OBESITY. + CHRONIC FATIGUE. No change in weight. Psychiatric: No history of anxiety, depression, bipolar disorder, or insomnia. Eyes: Vision unchanged Ears, Nose, Mouth, Throat: + OCC SINUS. Hearing normal, no swallowing difficulties, no sore throat Endocrine: No history of diabetes, thyroid disease, heat/cold intolerance Lymphatic: No enlarged lymph nodes Respiratory: + H/O PE. + COUGH. + OCC SH OF BREATH. No asthma, wheezing Cardiovascular: + CHF. + CARDIOMYOPATHY. + OCC CP. +OCC PALPITATIONS. + HTN. No orthopnea, edema, murmur, hyperlipidemia Gastrointestinal: No constipation or diarrhea, no reflux, nausea, or vomiting Genitourinary: + NOCTURIA. No dysuria, hematuria, urgency, or frequency Neurologic: + OCC PATRICIA. + OCC VERTIGO. No numbness, weakness, syncope, seizures Musculoskeletal: No muscle weakness, or joint pain Integumentary: + OCC BLE SWELLING. No new skin lesions Gynecologic: + AUB. + FIBROIDS. + DYSPAREUNIA. + PELVIC PAIN. No vaginal discharge, of h/o abnml pap smears LMP: P: Vag Deliveries: C-sec: Misc: Hematologic: + BLEEDS EASILY Medications: Medication Reconciliation for the patient has been reviewed in the EMR. Physical exam: Constitutional: Weight 271 Height 63 BP 124/76 Pulse Temp ; SHORT Neurological/Psychiatric: HEENT: Neck: ; THICK Respiratory: Cardiovascular: Breasts: Gastrointestinal: ; LARGE PANNUS Lymphatic: Extremities: Skin: Gynecologic: External Genitalia: Vagina: ; NULLIPAROUS; SMALL INTROITUS Cervix: ; NULLIPAROUS OS Uterus: ; DIFFICULT EXAM UTERUS VERY MOBILE PROBABLY NEAR NML SIZE Ovaries: Parametria: Smooth. 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
--- OUTSIDE RECORDS SUMMARY | 2024-10-01 13:34 | XMS_ITS | Encounter Summary ---
Author Organization [facility] ystem Address [address] [place] [address] Care Team Providers Care Fruit Worker Name Role Phone Unavailable Primary Care Provider Unavailabl e Encounter Details Date Type Department Care Team (Late st Contact Info) Description 04/13/2013 Conversion Encounter [facility] HISTORICAL CONV [address] [place] [address] Interface, See Report Social History Tobacco Use Types Packs/Day Years Used Date Smoking Tobacco: Never Assessed Comments Unknown Sex and Gender Information Value Date Recorded Sex Assigned at Not on file Legal Sex Female 1:37 PM EDT Gender Identity Not on file Sexual Orientation Not on file documented as of this encounter Progress Notes * Interface, See Report - 04/13/2013 12:00 AM EST PLASTIC WELDER-Oncology Services [address] [place] [address] Patient: JOYCELYN CRUZ MR #: [id number] : 1980 Date of Visit: 04/13/2013 Referring Physician: VALENTE TRIANA Dictated By: Malcolm Nuñez MD Diagnosis: AUB FIBROIDS MORBID OBESITY H/O DVT ON COUMADIN Allergies: NKDA History of present illness: POST-OP TVH ON 03/19/13 WITH BENIGN PATH. IS HAVING A LITTLE VAGINAL BLEEDING. OFF LOVENOX; BACK ON COUMADIN Past medical history: Medical: CARDIOMYOPATHY; CHF; HTN; H/O BLE PE; FIBROIDS/AUB; BLOOD CLOTTING DISORDER; BLE SWELLING Surgical: APPY; TVH Health maintenance: Mammogram: Colonoscopy: Pap smear: Tumor Marker: CT Scan: BMD: Ultrasound: Review of systems: Constitutional: + MORBID OBESITY. + CHRONIC FATIGUE. No change in weight. Psychiatric: No history of anxiety, depression, bipolar disorder, or insomnia Respiratory: + H/O PE. + COUGH. + OCC SH OF BREATH. No asthma, wheezing Cardiovascular: + CHF. + CARDIOMYOPATHY. + OCC CP. +OCC PALPITATIONS. + HTN. No orthopnea, edema, murmur, hyperlipidemia Gastrointestinal: No constipation or diarrhea, no reflux, nausea, or vomiting Genitourinary: + NOCTURIA. No dysuria, hematuria, urgency, or frequency Neurologic: + OCC PATRICIA. + OCC VERTIGO. No numbness, weakness, syncope, seizures Gynecologic: + AUB. + FIBROIDS. + DYSPAREUNIA. + PELVIC PAIN. No vaginal discharge, of h/o abnml pap smears LMP: G: P: Vag Deliveries: C-sec: Misc: Additional notes: +OCC SINUS, + BLEEDS EASILY Medications: Medication Reconciliation for the patient has been reviewed in the EMR. Physical exam: Constitutional: Weight Height BP Pulse Temp Neurological/Psychiatric: HEENT: Neck: Respiratory: Cardiovascular: Breasts: Gastrointestinal: Lymphatic: Extremities: Gynecologic: External Genitalia: Vagina: Cervix: VAG CUFF INTACT; HEALING; FOCALLY FRIABLE Uterus: Ovaries: Parametria: Smooth. Rectovaginal: Hemoccult: ECOG Performance Status: 0=Fully active, able to carry on all pre-disease performance without restriction. Procedure note: Assessment: SATISFACTORY POST OP Plan: F/U WITH DR TRIANA IN 3 M SEE US ONLY PRN CC CHART TO DR TRIANA Electronically Signed By: Malcolm Nuñez MD Date: 04/13/2013 Time: 9:25 AM cc: documented in this encounter Plan of Treatment Not on file documented as of this encounter Visit Diagnoses Not on filedocumented in this encounter
--- OUTSIDE RECORDS SUMMARY | 2024-10-01 13:34 | XMS_ITS | Encounter Summary ---
Author Organization [facility] Address [address] [place] [address] Care Team Providers Care Systems Support Officer Name Role Phone Unavailable Primary Care Provider Unavailabl e Encounter Details Date Type Department Care Team (Late st Contact Info) Description 03/19/2013 Conversion Encounter [facility] HISTORICAL CONV [address] [place] [address] Interface, See Report Social History Tobacco Use Types Packs/Day Years Used Date Smoking Tobacco: Never Assessed Comments Unknown Sex and Gender Information Value Date Recorded Sex Assigned at Not on file Legal Sex Female 1:37 PM EDT Gender Identity Not on file Sexual Orientation Not on file documented as of this encounter Discharge Summaries * Interface, See Report - 03/19/2013 6:19 AM EST [place] [address] DISCHARGE SUMMARY PATIENT NAME: GI CRUZ [address] [facility] NO: [id number] DATE OF : 1980 DATE OF ADMISSION: 03/19/2013 DATE OF DISCHARGE: 03/20/2013 ATTENDING PHYSICIAN: HOSEA Swain DISCHARGE DIAGNOSES: 1. Abnormal uterine bleeding. 2. Uterine fibroids. 3. Hypertension. 4. History of congestive heart failure. 5. History of bilateral pulmonary embolisms. PROCEDURES PERFORMED: Transvaginal hysterectomy. HISTORY OF PRESENT ILLNESS: This is a 32-year-old female who complains of abnormal uterine bleeding since 1998. The patient went two years with amenorrhea and was seen by Dr. Sun in [place] who put her on oral contraceptive pills. The patient continued to have irregular menses and was later seen in [place] where a transvaginal ultrasound was performed showing uterine fibroids. The patient was again placed on oral contraceptive pills, however later developed bilateral pulmonary embolisms as well as congestive heart failure. The patient stopped oral contraceptive therapy at that time. The patient was sent to the gynecology/oncology clinic on 03/02/2013 for further evaluation. The patient had had multiple attempts in the past at endometrial biopsies; however, due to difficult exams, they were unable to obtain the endometrial biopsies at prior office visit. Risks, benefits, and alternatives of therapy were discussed with the patient. The patient wanted definitive therapy for her abnormal uterine bleeding and so decision was made to proceed with transvaginal hysterectomy and possible bilateral salpingo-oophorectomy. PAST MEDICAL HISTORY: 1. Cardiomyopathy. 2. Congestive heart failure. 3. Hypertension. 4. History of bilateral pulmonary embolism. 5. Abnormal uterine bleeding and uterine fibroids. 6. Bilateral lower extremity edema. PAST SURGICAL HISTORY: Appendectomy. SOCIAL HISTORY: The patient is . Denies tobacco, alcohol, drug use. FAMILY HISTORY: The patient's maternal aunt had breast cancer at age 40. She also had colon cancer. Another maternal aunt with breast cancer in her 50s. She also had a hysterectomy for possible female cancer, uterine versus ovarian. Maternal grandfather with a history of lung cancer. Mother with a history of diabetes and hypertension. Maternal grandmother with hypertension. HOSPITAL COURSE: The patient was admitted to the hospital on 03/19/2013 for her transvaginal hysterectomy and possible bilateral salpingo-oophorectomy. The patient was taken to the operating room on 03/19/2013 where a transvaginal hysterectomy was performed. Ovaries were able to be visualized, however, were unable to be safely removed at time of surgery. For full operative details, please see the postoperative dictation. The patient tolerated the procedure well and on her night of surgery the patient's pain was controlled. She was tolerating clear liquids. No nausea and no vomiting. She denied chest pain. She had occasional mild shortness of air. Her spironolactone was given in the PACU due to complaint of mild shortness of air. The patient was encouraged to use her incentive spirometer and all blood pressure medications were restarted. Due to the patient's history of bilateral PEs, the patient was restarted on Lovenox 40 mg subcutaneous q.12 hours, so the patient received a dose at 6:00 p.m. on night of surgery as well as 6:00 a.m. on the day after surgery. The patient's Coumadin was restarted on postoperative day #1. Also on postoperative day #1, the patient's Rubio catheter was discontinued. The patient was up, was ambulating, was able to void. The patient's pain was well controlled. She was tolerating a regular diet prior to her discharge without nausea or vomiting. The patient's blood pressure was stable with a range of 94-119/52-74. Pulse was 79. Temperature was 97.4. Respirations were 18. O2 was 98% on room air. On postoperative day #1, the patient denied chest pain or shortness of air. She was ambulating without difficulty. Her chest was regular rate and rhythm. Respirations were clear to auscultation bilaterally. Her abdomen was soft, obese, nontender to palpation and bowel sounds were positive. Her extremities showed no cyanosis, clubbing, or edema. The patient's urine output had been 700 over the last eight hours. Her postoperative hematocrit was 35.4. Her sodium was 136, potassium 3.6 and creatinine was 0.8. The patient was doing well postoperatively and was deemed stable for discharge home at that time. A discussion was held with the patient prior to her discharge concerning her anticoagulation therapy. The patient will continue her home Lovenox dose, which was 120 mg b.i.d. The patient will start this tomorrow. The patient will also continue her Coumadin, which is 7.5 mg daily. The patient is scheduled to have her PT and INR drawn on 03/23/2013 which the patient has chosen to do in Dr. Caraballo' office in [place]. Dr. Eric Caraballo in [place], [place] is her family medicine doctor who has previously been following her, her PT/INR and making adjustments with her Coumadin. The patient will be able to stop Lovenox therapy once she has reached adequate INR. PLAN: Discharge patient home. DIET: As tolerated. ACTIVITY: 1. Pelvic rest x6 weeks. 2. No lifting greater than 10 pounds x4 weeks. 3. No tub baths x2 weeks. 4. No driving while on narcotic pain medication. MEDICATIONS: (DISCHARGE) Patient was sent home with prescriptions for: 1. Percocet 5/325, 1 to 2 tabs p.o. q.4-6 hours p.r.n. pain, #30, no refills. 2. Ibuprofen 600 mg 1 tab p.o. q.6 hours p.r.n. pain, #60, with one refill. 3. Phenergan 12.5 mg 1 tab p.o. q.4-6h. p.r.n. nausea, #30, no refills. 4. Docusate 250 mg 1 tab p.o. b.i.d., hold for loose stools, #60, one refill. 5. Lovenox 120 mg subcutaneous twice daily, dispensed one week's supply. The patient has follow-up PT and INR on 03/23/2013. FOLLOW-UP: 1. The patient will follow-up with Dr. Jc in 2 to 3 weeks. The patient will need to call the office to schedule appointment. 2. The patient will follow-up with her primary care physician, which is Dr. Eric Caraballo in [place], [place], who has previously been following her PT and INR and making adjustments with her Coumadin. The patient is aware that she will need to follow-up with him in one week. 3. The patient will have her PT and INR drawn on 03/23/2013. Syl Carlin, OB Resident* Dictating for: Jose Jc M.D. AB/HE/margie Voice Rec. ID #[id number] Voice Original ID #[id number] Doc ID #[id number] Rev. #0 cc: Jose Jc M.D.* Eric Caraballo M.D.* DO NOT TEXT EDIT THIS LINE :CDS:[id number]: Authenticated by JOSE JC MD On 04/27/2013 09:58:46 AM Authenticated by JOSE JC MD On 04/28/2013 01:24:21 PM documented in this encounter OR Notes * Op Note - Interface, See Report - 03/19/2013 6:19 AM EST [place] [address] OPERATIVE REPORT PATIENT NAME: GI CRUZ [address] [facility] NO: [id number] DATE OF : 1980 DATE OF OPERATION: 03/19/2013 PREOPERATIVE DIAGNOSES: 1. Abnormal uterine bleeding. 2. Leiomyoma on ultrasound. POSTOPERATIVE DIAGNOSES: 1. Abnormal uterine bleeding. 2. Leiomyoma on ultrasound. INDICATIONS FOR SURGERY: This is a 32-year-old female who was seen in the gynecology/oncology clinic on 03/02/2013. The patient reports a history of abnormal uterine bleeding since 1998. The patient went two years with amenorrhea. She then went to Dr. Sun in [place] who put her on oral contraceptive pills. Her menses were still irregular. The patient then was seen in [place] for similar complaints. The patient was started on a different oral contraceptive pill. The patient later developed bilateral pulmonary embolism as well as congestive heart failure. The patient stopped oral contraceptive pills. The patient was seen and evaluated by Dr. [place] who did an ultrasound. Ultrasound showed multiple leiomyomata on ultrasound. The patient had previously had several attempts at endometrial biopsy. However, these attempts were unsuccessful. The patient was counseled on risks, benefits, and alternatives in the office. However, she desired to proceed with definitive therapy. SURGEON: Jose Jc M.D. ACCOUNT REPRESENTATIVE: Syl Carlin M.D., Resident ANESTHESIA: General endotracheal. ANTIBIOTICS: 2 grams of cefoxitin. PROCEDURE PERFORMED: Transvaginal hysterectomy. FINDINGS: Approximately 10 week size uterus with multiple leiomyomata. SPECIMENS REMOVED: Uterus and cervix on frozen section which were benign. DESCRIPTION OF PROCEDURE: After risks, benefits, and alternatives were discussed with the patient and consent was obtained, the patient was taken to the Operating Room, where she was placed in dorsal supine position. The patient was then placed under general anesthesia and transitioned to dorsal lithotomy position using the [facility] stir[facility]. The patient was then prepped and draped in normal sterile fashion. A Rubio catheter was placed at the start of the case. A weighted speculum was placed into the vagina posteriorly and the cervix was visualized. The anterior lip of the cervix was grasped with a single-tooth tenaculum. A right angle retractor was placed anteriorly for better visualization. 0.5% Marcaine was used for anesthesia and was injected circumferentially around the cervix. Bovie cautery was used to incise in a circumferential manner around the cervicovaginal junction. The cervix was then regrasped with a single-tooth tenaculum X2 at the 3 o'clock and 6 o'clock positions for better traction on the uterus. The posterior vagina was grasped with pick-ups and the posterior colpotomy was made with curved Pablo scissors. The weighted speculum was then placed posteriorly through the posterior colpotomy. Attention was then turned anteriorly. Again, anterior vaginal wall was grasped with pick-ups and dissection was completed. The vesicouterine peritoneal reflection was identified and sharply excised using Pablo scissors. Anterior colpotomy was made and the right angle retractor was placed into the anterior colpotomy. The compact LigaSure was then used to create a pedicle on the left-hand side with dissection of the uterosacral ligament. Excellent hemostasis was noted. Same process was completed on the right hand side using a compact LigaSure. Again, excellent hemostasis was noted. Further traction was placed on the uterus. A second pedicle was created on the left-hand portion of the uterus, ligating and sealing the uterine artery. This process was again repeated on the right-hand side with ligation of the uterine artery. Progression was made superiorly. Pedicles were continued to be made in a superior direction on both the left and right sides until both the broad ligaments including the round ligament were dissected bilaterally using the compact LigaSure. Fallopian tubes and ovaries were able to be palpated, however, not able to be visualized. Therefore, they were not removed at time of surgery. The uterus was grasped posteriorly with a single-toothed tenaculum and was removed via the vagina atraumatically. The posterior vaginal wall and peritoneum were grasped with an Allis clamp. A 0 Vicryl was used to tag the posterior vaginal cuff. Again, after this was completed for traction, both of the uterosacral ligaments were also tagged with 0 Vicryl on a pop-off to create the apex of the vaginal cuff bilaterally. It should be noted that at the start of the case prior to dissection with a compact LigaSure, two sutures of 0 Vicryl were used on the right and left vaginal davila and anchored to the skin on the thigh bilaterally for better visualization during the case. 0 Vicryl was used for vaginal cuff closure in a running locked fashion. This incorporated both angle sutures. Vagina was then irrigated and aspirated. All suture was cut. No points of bleeding were noted. After the vaginal sutures that were placed for better visualization were removed at the end of the case, there was a small point of bleeding that was noted on the left-hand side. This was made hemostatic with 4-0 Vicryl in [id number] fashion X2. Also, there was a small point of bleeding on the right-hand vaginal wall that was made hemostatic with Bovie cautery. The vagina was then packed with vaginal packing with diluted Betadine. The patient was then transitioned back into dorsal supine position and was taken to the recovery room once deemed stable by Anesthesia. Sponge, lap, and needle counts were correct for the case X3. Estimated blood loss was 100 mL. Estimated urine output was 150 mL during the case. No complications were immediately noted. Again, frozen section on the uterus and cervix returned during the case and showed benign findings as well as leiomyomata. Jose Jc M.D.* Dictated by: Syl Carlin M.D., Resident ED/AB/rxmjh Voice Rec. ID #[id number] Original Voice Rec. ID #[id number] Doc ID #[id number] Revision Count: 0 cc: Jose Jc M.D.* <start header> [place] [address] OPERATIVE REPORT PATIENT NAME: GI CRUZ 1 [facility] NO: [id number] DATE OF : 1980 <end header> DO NOT TEXT EDIT THIS LINE :GROUNDS FOREMAN:[id number]: Authenticated by JOSE JC MD On 03/19/2013 01:40:06 PM documented in this encounter Plan of Treatment Not on file documented as of this encounter Procedures Procedure Name Priority Date/Time Associated Diagnosis Comments APTT Routine 03/20/2013 8:51 AM EST PROTIME-INR Routine 03/20/2013 8:51 AM EST CBC (NO DIFF) Routine 03/20/2013 6:00 AM EST BASIC METABOLIC PANEL Routine 03/20/2013 6:00 AM EST CONVERTED (HISTORICAL) SURGICAL PATHOLOGY Routine 03/19/2013 6:19 AM EST SCANNED EKG 03/19/2013 APTT Routine 03/18/2013 10:40 AM EST PROTIME-INR Routine 03/18/2013 10:40 AM EST CBC AND DIFFERENTIAL Routine 03/18/2013 10:40 AM EST TYPE AND SCREEN Routine 03/18/2013 10:40 AM EST HCG, QUANTITATIVE, Routine 03/18/2013 10:40 AM EST COMPREHENSIVE METABOLIC PANEL Routine 03/18/2013 10:40 AM EST documented in this encounter Results * APTT (03/20/2013 8:51 AM EST) PTT 29 24 - 31 Seconds [facility] Comment: US by IF @ 03/20/2013 09:23 PTT = The equivalent PTT values for the therapeutic range of heparin levels at 0.3 to 0.5 U/ml are 45 to 60 seconds. PTT = The equivalent PTT values for the therapeutic range of heparin levels at 0.3 to 0.5 U/ml are 45 to 60 seconds. Blood specimen (specimen) 03/20/2013 8:51 AM EST Narrative [facility] - 03/20/2013 9:23 AM EST Specimen Type: Blood us Jose Jc MD LAB BLOOD ORDERABLES Final Result [facility] [address] [place] [address], * Protime-INR (03/20/2013 8:51 AM EST) Protime 11.5 9.6 - 11.5 Seconds [facility] INR 1.07 [facility] Comment: US by IF @ 03/20/2013 09:23 Therapeutic Ranges for INR: 2.0-3.0 (PT 20-30) 2.5-3.5 (PT 25-34) Blood specimen (specimen) 03/20/2013 8:51 AM EST Narrative [facility] - 03/20/2013 9:23 AM EST Specimen Type: Blood Jose Jc MD LAB BLOOD ORDERABLES Final Result [facility] [address] [place] [address], * (ABNORMAL) Basic metabolic panel (03/20/2013 6:00 AM EST) Glucose 134(H) 70 - 100 mg/dL [facility] BUN 10 6 - 20 mg/dL [facility] Creatinine 0.8 0.6 - 1.3 mg/dL [facility] Sodium 136 136 - 145 mmol/L [facility] Potassium 3.6 3.4 - 5.4 mmol/L [facility] Chloride 100 98 - 107 mmol/L [facility] CO2 26 20 - 31 mmol/L [facility] Calcium 9.2 8.7 - 10.4 mg/dL [facility] Est GFR by Clearance 88 ml/min/1.7 32 [facility] Comment: DF by IF @ 03/20/2013 06:43 [employer] Guidelines Stage Description GFR 1 Normal or High 90+ 2 Mild decrease 60-89 3 Moderate decrease 30-59 4 Severe decrease 15-29 5 Kidney failure <15 Anion Gap 9 3 - 11 mmol/L [facility] Blood specimen (specimen) 03/20/2013 6:00 AM EST Narrative [facility] - 03/20/2013 7:02 AM EST Specimen Type: Blood us Syl C Carlin DO LAB BLOOD ORDERABLES Final R esult Performing Organization Address [facility] [place] [address], * (ABNORMAL) CBC (No diff) (03/20/2013 6:00 AM EST) WBC 16.92(H) 3.50 - 10.80 [facility] RBC 4.28 3.89 - 5.14 /[facility] Hemoglobin 11.6 11.5 - 15.5 g/dL [facility] Hematocrit 35.4 34.5 - 44.0 % [facility] MCV 82.7 80.0 - 99.0 fL [facility] MCH 27.1 27.0 - 31.0 pg [facility] MCHC 32.8 32.0 - 36.0 g/dL [facility] RDW-CV 14.1 11.3 - 14.5 % [facility] Platelets 332 150 - 450 [facility] Blood specimen (specimen) 03/20/2013 6:00 AM EST [facility] - 03/20/2013 6:22 AM EST Specimen Type: Blood Syl Carlin DO LAB BLOOD ORDERABLES Final R esult Performing Organization Address City/[facility] Co de Phone Number [facility] [address] [place] [address], * Converted Surgical Pathology (03/19/2013 6:19 AM EST) 03/19/2013 6:19 AM EST [facility] - 03/20/2013 12:46 [place] [address] SURGICAL PATHOLOGY REPORT Patient Name: GI CRUZ MR#: [id number] : 1980 Gender: F Ordering Physician: JOSE JC Copy To: Location: [id number] Collected: 03/19/2013 Received: 03/19/2013 Reported: 03/20/2013 Clinical Diagnosis and History The working history is AUB, pelvic pain, dyspareunia, fibroids, and increased risk for endometrial cancer. Final Diagnosis UTERUS WITH CERVIX: Myometrium with leiomyoma with infarction/degenerative change. Mixed hormonal endometrium. Chronic cervicitis without evidence of dysplasia. JFJ/sk Amendments: Electronically Signed Out By Martin Alexander M.D. Specimen(s) Received: Uterus +/- tubes/ovaries Gross Description Received fresh for frozen section labeled uterus with cervix is a 127.7 gram intact hysterectomy specimen with attached cervix. No adnexal tissue is present. The uterine body measures 7.0 x 6.0 x 5.5 cm, the attached cervix measures 4.0 x 3.5 x 3.5 cm. The serosa is red/pink smooth and glistening. The ectocervical mucosa is martinez and wrinkled and the cervical os is patent. The cervix and uterine body are bivalved to reveal a 3.5 cm in length martinez, corrugated endocervical canal. No suspicious cysts or polyps are identified. The triangular endometrial cavity measures 5.0 x 4.5 cm and is surfaced by martinez glistening endometrium averaging 0.6 cm in thickness. No polyps or invasive lesions are identified. The myometrium is amrtinez and trabecular with a single well-circumscribed martinez/yellow intramural nodule measuring 2.3 cm in greatest dimension. Fibreglass Gun [employer] sections are submitted. Summary of sections: A - frozen section residue; B - anterior and posterior cervix; C-D - anterior endomyometrium; E-F - posterior endomyometrium; G - intramural nodule. M/sk Microscopic Description Sections show secretory endometrium with intraluminal secretions. 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 No other abnormalities are noted. JFJ/sk Previous Pertinent History [id number], 12/15/12: ENDOMETRIUM, BIOPSY: Negative for endometrial functionalis. Abundant endocervical type epithelium. (FLP) [id number],12/08/12: PAP SMEAR: Negative for intraepithelial lesion or malignancy. (PCL) Procedures/Addenda us See Report Interface PATHOLOGY/CYTOLOGY ORDERABL ES Final Result Performing Organization Address [facility]/[place] [address], * SCANNED EKG (03/19/2013) [facility] ECG ORDERABLES Final Result * (ABNORMAL) APTT (03/18/2013 10:40 AM EST) PTT 37(H) 24 - 31 Seconds [facility] Comment: US by IF @ 03/18/2013 11:21 PTT = The equivalent PTT values for the therapeutic range of heparin levels at 0.3 to 0.5 U/ml are 45 to 60 seconds. PTT = The equivalent PTT values for the therapeutic range of heparin levels at 0.3 to 0.5 U/ml are 45 to 60 seconds. Blood specimen (specimen) 03/18/2013 10:40 AM EST Narrative [facility] - 03/18/2013 11:21 AM EST Specimen Type: Blood Jose Jc MD LAB BLOOD ORDERABLES Final Result Performing Organization Address [facility] [place] [address], * (ABNORMAL) Protime-INR (03/18/2013 10:40 AM EST) Protime 12.5(H) 9.6 - 11.5 Seconds [facility] INR 1.16 [facility] Comment: US by IF @ 03/18/2013 11:21 Therapeutic Ranges for INR: 2.0-3.0 (PT 20-30) 2.5-3.5 (PT 25-34) Blood specimen (specimen) 03/18/2013 10:40 AM EST Narrative [facility] - 03/18/2013 11:21 AM EST Specimen Type: Blood Jose Jc MD LAB BLOOD ORDERABLES Final Result [facility] [address] [place] [address], * hCG, quantitative, (03/18/2013 10:40 AM EST) HCG Quantitative <5.0 mIU/mL [facility] Comment: DF by IF @ 03/18/2013 11:23 HCG Expected Values: Non females less than 5 mIU/mL Males less than 5 mIU/mL 0-1 Weeks Gestation 5-50 1-2 Weeks Gestation 50-500 2-3 Weeks Gestation 100-5000 3-4 Weeks Gestation [id number] 4-5 Weeks Gestation [phone] 5-6 Weeks Gestation [id number] 6-8 Weeks Gestation [id number] 2-3 Months Gestation [id number] Note: If a value is between 5-25 mIU/mL recommend repeat testing and clinical correlation. Blood specimen (specimen) 03/18/2013 10:40 AM EST [facility] - 03/18/2013 11:23 AM EST Specimen Type: Blood Jose Jc MD LAB BLOOD ORDERABLES Final Result Performing Organization Address [facility] Co de Phone Number [facility] [address] [place] [address], * Type and screen (03/18/2013 10:40 AM EST) ABORh O Rh Positive [facility] Antibody Screen Negative [facility] Blood specimen (specimen) 03/18/2013 10:40 AM EST [facility] - 03/18/2013 11:49 AM EST Specimen Type: Blood Jose Jc MD BLOOD BANK TEST ORDERABLES Final Result Performing Organization Address City/[facility]/ZIP Co de Phone Number [facility] [address] [place] [address], * (ABNORMAL) Comprehensive metabolic panel (03/18/2013 10:40 AM EST) Glucose 86 70 - 100 mg/dL [facility] BUN 11 6 - 20 mg/dL [facility] Creatinine 0.6 0.6 - 1.3 mg/dL [facility] Sodium 139 136 - 145 mmol/L [facility] Potassium 3.9 3.4 - 5.4 mmol/L [facility] Chloride 102 98 - 107 mmol/L [facility] CO2 28 20 - 31 mmol/L [facility] Calcium 9.8 8.7 - 10.4 mg/dL [facility] Alkaline Phosphatase 126(H) 25 - 100 Units/L [facility] AST (SGOT) 28 8 - 33 Units/L [facility] ALT (SGPT) 38 7 - 40 Units/L [facility] Total Bilirubin 0.7 0.3 - 1.2 mg/dL [facility] Total Protein 8.4(H) 6.4 - 8.3 g/dL [facility] Albumin 4.6 3.4 - 4.8 g/dL [facility] eGFR 126 ml/min/1.7 32 [facility] LABORATORY Comment: DF by IF @ 03/18/2013 11:23 [employer] Guidelines Stage Description GFR 1 Normal or High 90+ 2 Mild decrease 60-89 3 Moderate decrease 30-59 4 Severe decrease 15-29 5 Kidney failure <15 Anion Gap 9 3 - 11 mmol/L [facility] Blood specimen (specimen) 03/18/2013 10:40 AM EST Narrative [facility] - 03/18/2013 11:23 AM EST Specimen Type: Blood us Jose Jc MD LAB BLOOD ORDERABLES Final Result [facility] [address] [place] [address], * (ABNORMAL) CBC and Differential (03/18/2013 10:40 AM EST) WBC 10.75 3.50 - 10.80 K/[facility] RBC 5.03 3.89 - 5.14 M/[facility] Hemoglobin 13.4 11.5 - 15.5 g/dL [facility] Hematocrit 41.2 34.5 - 44.0 % [facility] MCV 81.9 80.0 - 99.0 fL [facility] MCH 26.6(L) 27.0 - 31.0 pg [facility] MCHC 32.5 32.0 - 36.0 g/dL [facility] RDW-CV 13.7 11.3 - 14.5 % [facility] Platelets 372 150 - 450 K/[facility] Neutrophils Absolute 7.20 1.50 - 8.30 [facility] Lymphocytes Absolute 2.43 0.60 - 4.80 [facility] Monocytes Absolute 0.76 0.00 - 1.00 [facility] Eosinophils Absolute 0.29 0.10 - 0.30 [facility] Basophils Absolute 0.03 0.00 - 0.20 [facility] Neutrophil Rel % 66.9 41.0 - 71.0 % [facility] Lymphocyte Rel % 22.6(L) 24.0 - 44.0 % [facility] Monocyte Rel % 7.1 0.0 - 12.0 % [facility] Eosinophil Rel % 2.7 0.0 - 3.0 % [facility] Basophil Rel % 0.3 0.0 - 1.0 % [facility] Immature Granulocyte Rel % 0.4 0.0 - 0.6 % [facility] Blood specimen (specimen) 03/18/2013 10:40 AM EST Narrative [facility] - 03/18/2013 11:06 AM EST Specimen Type: Blood us Jose Jc MD LAB BLOOD ORDERABLES Final Result Performing Organization Address City/State/[facility] Co de Phone Number [facility] [place] [address], documented in this encounter Visit Diagnoses Not on filedocumented in this encounter
--- OUTSIDE RECORDS SUMMARY | 2024-10-01 13:34 | XMS_ITS | Clinical Summary ---
Author Organization Healthcare Address [address] [id number] Care Team Providers Care Butter Maker Name Role Phone Eric Caraballo MD Primary Care Provider [phone] Allergies No known active allergies Medications Xarelto [...] MG tablet 11/12/2020 Active ergocalciferol 1.25 MG (66011 UT) capsule 01/11/2020 Active gabapentin (Neurontin) 400 [...] 10/26/2000 [facility]-Cervical Cancer Screening 10/26/2009 [facility]-HPV/Cotest 10/26/2009 [id number] Vaccine (1 - 20 24-25 season) 2023 [...] to complete this topic Insurance Care Teams Butter Maker Relationship Specialty Start Date End Date Eric Caraballo MD [address] [place] [address] [place] [address] PCP - General 07/08/20
--- OUTSIDE RECORDS SUMMARY | 2024-10-01 13:34 | XMS_ITS | Clinical Summary ---
Author Organization [facility] Address [address] [place] [address] Care Team Providers Care Cissp Name Role Phone Unavailable Primary Care Provider Unavailabl e Social History Tobacco Use Types Packs/Day Years Used Date Smoking Tobacco: Never Assessed Abuse Screen Answer Date Recorded Unsafe at Home or Work/School Not on file Feels Threatened by Someone? Not on file 11/2022 Does Anyone Keep You from Co ntacting Others or Doint Things Outside the Home? Not on file 12/04/2022 Physical Sign of Abuse Present Not on file 1 Housing Stability Answer Date Recorded Current Living Arrangements Not on file 11/25 Potentially Unsafe Housing Conditions Not on pascual e 12/04/2022 Family and Community Support Answer Royer e Recorded Help with Day-to-Day Activities Not on file 12/04/2022 Lonely or Isolated Not on file 12/04/2022 Employment Answer Date Recorded Do you want help finding or keeping work or a kamini b? Not on file 12/04/2022 Disabilities Answer Date Recorded Concentrating, Remembering, or Making Decisions Difficulty Not on file 12/04/2022 Doing Errands Independently Difficulty Not on fi le 12/04/2022 Education Answer Date Recorded Help with school or training? Not on file Preferred Language Not on file 12/04/2022 Comments Unknown Sex and Gender Information Value Date Recorded Sex Assigned at Not on file Legal Sex Female 1:37 PM EDT Gender Identity Not on file Sexual Orientation Not on file Plan of Treatment Health Maintenance Due Date Last Done Comments ANNUAL PHYSICAL 1979 Annual Gynecologic Pelvic an d Breast Exam 1979 HEPATITIS C SCREENING 1979 TDAP/TD VACCINES (1 - Tdap) 10/26/1998 MAMMOGRAM 2019 COVID-19 Vaccine (2023-2 5 season) 2023 INFLUENZA VACCINE 11/25/2024 Pneumococcal Vaccine 0-49 Aged Out No longer eligible based on patient's age to complete this topic Insurance LOCATED WITHIN [employer] [employer] EM[employer]EE Member Subscriber Plan / Payer (Ef fective 2023-Present) Name:Gi Smith Relation to Subscriber:Self Name:Gi Smith Payer ID:[id number] (NAIC) Group ID:Not on file Type:Not on file Address: [facility] [id number] [id number]
[2024-10-01 13:40] LABS: Hematocrit 39.7 % (37.0-47.0); Hemoglobin 12.6 g/dL (12.2-16.2); Immature Granulocytes % 0.4 %; Mean Corpuscular HGB Conc 31.7 g/dL (31.8-35.4); Mean Corpuscular Hemoglobin 24.8 pg (27.0-31.2); Mean Corpuscular Volume 78.1 fl (81-99); Nucleated Red Blood Cells % 0 %; Platelet Count 281 K/mm3 (142-424); Red Blood Count 5.08 M/mm3 (4.20-5.40); Red Cell Distribution Width-SD 41.1 fL; White Blood Count 16.7 K/mm3 (4.8-10.8)
[2024-10-01] MEDS: MORPHINE 4MG/ML SYRINGE 2 MG IV (13:45)
[2024-10-01] MEDS: ONDANSETRON 4MG/2ML VIAL 4 MG IV (13:45)
[2024-10-01 13:46] LABS: Albumin Level 4.8 g/dl (3.5-5.0); Chloride 98 mmol/L (98-107); Sodium 133 mmol/L (136-145)
[2024-10-01 13:47] LABS: Potassium 4.9 mmoL/L (3.5-5.1)
[2024-10-01 13:48] LABS: Lipase 186 U/L (23-300)
[2024-10-01 13:49] LABS: Alanine Aminotransferase 47 U/L (12-78); Albumin/Globulin Ratio 1.3 (1.1-1.8); Alkaline Phosphatase 149 U/L (38-126); Anion Gap 12.9 mEq/L (5-15); Aspartate Amino Transferase 53 U/L (14-36); Bilirubin,Total 0.7 mg/dl (0.2-1.3); Blood Urea Nitrogen 14 mg/dl (7-17); Carbon Dioxide 27 mmol/L (22.0-30.0); Creatinine Clearance Estimated 59 mL/min (50-200); Creatinine,Serum 1.00 mg/dl (0.52-1.04); Estimated Glomerular Filt Rate 60 ml/min (>60); GFR (African American) 73 ML/MIN (>60); Globulin 3.6 g/dL (1.3-3.2); Total Protein,Serum 8.4 g/dl (6.3-8.2)
[2024-10-01 13:50] LABS: Calcium 10.2 mg/dl (8.4-10.2); Glucose 256 mg/dl (74-100); Magnesium 1.6 mg/dl (1.6-2.3)
--- NOTE | 2024-10-01 13:58 | PC.NURSE ---
patient going to scan
[2024-10-01 14:01] LABS: Troponin I < 0.01 ng/ml (0.00-0.034)
[2024-10-01 14:03] LABS: NT Pro Brain Natriuretic Pep. 59.2 pg/mL (0-125)
[2024-10-01] MEDS: IOPAMIDOL-370 (76%);100ML BOTTLE 160 ML IV (14:26)
[2024-10-01] MEDS: SODIUM CHLORIDE 0.9% 10ML SYR (RAD ONLY) 10 ML IV (14:26)
[2024-10-01] MEDS: 0.9 % SODIUM CHLORIDE 50 ML VIAL 100 ML IV (14:26)
--- NOTE | 2024-10-01 16:03 | PC.NURSE ---
patinet stating chest pressure 8/10 into jaw. notified
[2024-10-01] MEDS: MORPHINE 2MG/ML SYRINGE 2 MG IV (16:23)
[2024-10-01 16:38] LABS: Troponin I < 0.01 ng/ml (0.00-0.034)
[2024-10-01] MEDS: BELLADONNA ALKALOIDS 60 ML ML PO (16:53)
[2024-10-01] MEDS: 0.9 % SODIUM CHLORIDE 1000ML 1,000 ML 500 ML IV (17:10)
== END 2024-10-01 17:49 | disposition home or self-care (01) ==
PROVIDERS: Physician Assistant; Emergency Provider Student in an Organized Health Care Education/Training Program; PCP Nurse Practitioner Family
DX: R07.89 Other chest pain (principal); R55 Syncope and collapse; K21.9 Gastro-esophageal reflux disease without esophagitis; I44.7 Left bundle-branch block, unspecified; I11.0 Hypertensive heart disease with heart failure; I50.22 Chronic systolic (congestive) heart failure; E11.9 Type 2 diabetes mellitus without complications; E78.5 Hyperlipidemia, unspecified; Z95.0 Presence of cardiac pacemaker; Z79.01 Long term (current) use of anticoagulants; W19.XXXA Unspecified fall, initial encounter
CPT/HCPCS: 70450; 70496; 70498; 71045; 71275; 72125; 80053; 83690; 83735; 83880; 84484; 85025; 93005; 96361; 96374; 96375; 96376; 99285; J2270; J2405; J7030; Q9967

== ENCOUNTER 2024-10-06 10:23 | Outpatient (CLI) | payer BC, SELFPAY ==
[2024-10-06 13:28] LABS: Microscopic, Urine URINE MICROSCOPIC (MICROSCOPIC)
[2024-10-06 13:49] LABS: Bilirubin,Urine Negative (Negative); Color,Urine YELLOW (Yellow); Glucose,Urine (UA) 1+ (Negative); Ketones,Urine Negative (Negative); Leukocyte Esterase,Urine Negative (Negative); PH,Urine 6.0 (5.0-8.5); Protein,Urine Negative (Negative); Specific Gravity, Urine <= 1.005 (1.005-1.030); Urobilinogen,Urine 0.2 EU/dl (0.2)
[2024-10-06 14:05] LABS: Hematocrit 37.3 % (37.0-47.0); Hemoglobin 12.0 g/dL (12.2-16.2); Immature Granulocytes % 0.6 %; Mean Corpuscular HGB Conc 32.2 g/dL (31.8-35.4); Mean Corpuscular Hemoglobin 24.7 pg (27.0-31.2); Mean Corpuscular Volume 76.7 fl (81-99); Nucleated Red Blood Cells % 0 %; Platelet Count 354 K/mm3 (142-424); Red Blood Count 4.86 M/mm3 (4.20-5.40); Red Cell Distribution Width-SD 41.9 fL; White Blood Count 10.5 K/mm3 (4.8-10.8)
[2024-10-06 14:35] LABS: Albumin Level 4.6 g/dl (3.5-5.0); Chloride 96 mmol/L (98-107); Sodium 136 mmol/L (136-145)
[2024-10-06 14:36] LABS: Potassium 5.1 mmoL/L (3.5-5.1)
[2024-10-06 14:36] LABS: Bacteria,Urine 2+ /lpf
[2024-10-06 14:38] LABS: Alanine Aminotransferase 44 U/L (12-78); Albumin/Globulin Ratio 1.6 (1.1-1.8); Alkaline Phosphatase 139 U/L (38-126); Anion Gap 19.1 mEq/L (5-15); Aspartate Amino Transferase 35 U/L (14-36); Bilirubin,Total 0.6 mg/dl (0.2-1.3); Blood Urea Nitrogen 13 mg/dl (7-17); Carbon Dioxide 26 mmol/L (22.0-30.0); Creatinine,Serum 0.90 mg/dl (0.52-1.04); Estimated Glomerular Filt Rate 68 ml/min (>60); GFR (African American) 82 ML/MIN (>60); Globulin 2.8 g/dL (1.3-3.2); Total Protein,Serum 7.4 g/dl (6.3-8.2)
[2024-10-06 14:39] LABS: Calcium 9.9 mg/dl (8.4-10.2); Glucose 294 mg/dl (74-100); Magnesium 1.6 mg/dl (1.6-2.3)
[2024-10-06 15:11] LABS: Ferritin 16.9 ng/ml (6.24-137)
[2024-10-06 19:26] LABS: Hemoglobin A1C 9.0 % (4.0-6.0)
--- OUTSIDE RECORDS SUMMARY | 2024-10-07 12:10 | XMS_ITS | Clinical Summary ---
Author Organization Healthcare Address [address] [id number] Care Team Providers Care Woods Rider Name Role Phone Eric Caraballo MD Primary Care Provider Allergies No known active allergies Medications Xarelto [...] MG tablet 11/12/2020 Active ergocalciferol 1.25 MG (13312 UT) capsule 01/11/2020 Active gabapentin (Neurontin) 400 [...] of 2 - 13+ 2-dose series) 10/26/1992 [facility]- SDOH Screenings 10/26/1997 [facility]-Adult SDOH Screenings 10/26/1997 [facility]-DTaP,Tdap,and Td Vaccine s (1 - Tdap) 10/26/1998 [facility]-Hepatitis B Vaccines (1 of 3 - 19+ 3-dose series) 10/26/1998 [facility]-Pap Smear 10/26/2000 HPV Vaccines (1 - 3-dose SCD M series) 10/26/2006 [facility]-Cervical Cancer Screening 10/26/2009 [facility]-HPV/Cotest 10/26/2009 [id number] Vaccine (1 - 20 24-25 season) 2023 [...] to complete this topic Insurance Care Teams Woods Rider Relationship Specialty Start Date End Date Eric Caraballo MD [address] [place] [address] [place] [address] PCP - General 07/08/20
--- OUTSIDE RECORDS SUMMARY | 2024-10-07 12:10 | XMS_ITS | Encounter Summary ---
Author Organization [employer] ([place], [place], [place], [place]) Address [address] [place] [address] Care Team Providers Care Factory Focus Technician Name Role Phone Unavailable Primary Care Provider Unavailabl e Encounter Details Date Type Department Care Team (Late st Contact Info) Description 04/08/2018 Transcribed Document [facility] Family Medicine [facility] [place] [address] ProviderSommer MD [address] [place] [id number] Social History Tobacco Use Types Packs/Day Years Used Date Smoking Tobacco: Never Assessed Comments Unknown Sex and Gender Information Value Date Recorded Sex Assigned at Not on file Legal Sex Female 1:18 PM CDT Gender Identity Not on file Sexual Orientation Not on file documented as of this encounter Miscellaneous Notes * Cerner Conversion Note - Sommer ProviderMD - 04/08/2018 8:35 AM CHEMICAL PROCESSOR PAT / Pre Procedure Adult Entered On: 04/08/2018 8:43 EST Performed On: 04/08/2018 8:35 EST by LY LIMA RN General Info Arrived From : Home Mode of Arrival on Unit : Ambulatory Patient Arrival Date/Time : 04/08/2018 8:05 EST Legal Guardian : Spouse Support Person/Pt Rep Name : MAR- Support Person/Pt Rep Contact Information : [phone] Want Family/Rep/Phys Notified of Admit : No Emergency Contact #1 : NA Emergency Contact #1 Phone Number : NA Emergency Contact #1 Relationship : NA Emergency Contact #2 : NA Emergency Contact #2 Phone Number : NA Emergency Contact #2 Relationship : NA Information Obtained From : Patient Primary Language : Sami Communication Barrier : None LY LIMA RN - 04/08/2018 8:35 EST Height and Weight, Clinical Dosing Height Source : Stated Height Entry Format : [place] Height, Feet : 5 ft(Converted to: 152 cm, 60 Inch) Height, Inches : 3 Inch(Converted to: 0 ft 3 Inch, 7.62 cm) Clinical Height : 160.02 cm Weight Source : Standing scale Weight Entry Format : [place] Clinical Dosing Weight : 114.09 kg Weight, Pounds : 251 lb Body Surface Area (BSA) : 2.13 m2 Body Mass Index : 44.6 kg/m2 (>HHI) [place] Body Weight : 52 kg LY LIMA [...] Rarely moist [place] Activity : Walks frequently Geln Mobility : No limitation [place] Nutrition : [...] Scale Risk Level : 25-45 Medium Risk [place] Fall Interventions : Adequate lighting, Assistive devices [...]
--- OUTSIDE RECORDS SUMMARY | 2024-10-07 12:10 | XMS_ITS | Clinical Summary ---
Author Organization [employer] ([place], [place], [place], [place]) Address [address] [place] [address] Care Team Providers Care Pilot Submersible Name Role Phone Unavailable Primary Care Provider [...]
--- OUTSIDE RECORDS SUMMARY | 2024-10-07 12:10 | XMS_ITS | Encounter Summary ---
Author Organization [employer] ([place], [place], [place], [place]) Address [address] [place] [address] Care Team Providers Care University Lecturer Name Role Phone Unavailable Primary Care Provider Unavailabl e Encounter Details Date Type Department Care Team (Late st Contact Info) Description 04/08/2018 Transcribed Document [facility] [place] [facility] [address] ProviderSommer MD [address] [place] [address] Social History Tobacco Use Types Packs/Day Years Used Date Smoking Tobacco: Never Assessed Comments Unknown Sex and Gender Information Value Date Recorded Sex Assigned at Not on file Legal Sex Female 1:18 PM CDT Gender Identity Not on file Sexual Orientation Not on file documented as of this encounter Miscellaneous Notes * Cerner Conversion Note - Sommer ProviderMD - 04/08/2018 1:56 PM HAND FINISHER Nursing Discharge Summary Entered On: 04/08/2018 13:57 [...] 04/08/2018 13:56 EST Electronically signed by Julio [facility] Conversion Elder Assistant Cerner at 06/14/2022 2:51 PM CDT documented in this encounter Plan of Treatment Not on file documented as of this encounter Visit Diagnoses Not on filedocumented in this encounter
--- OUTSIDE RECORDS SUMMARY | 2024-10-07 12:10 | XMS_ITS | Encounter Summary ---
Author Organization [facility] ystem Address [address] [place] [address] Care Team Providers Care Child Welfare Assistant Name Role Phone Unavailable Primary Care Provider Unavailabl e Encounter Details Date Type Department Care Team (Late st Contact Info) Description 03/19/2013 Conversion Encounter [facility] HISTORICAL CONV [address] [place] [address] Interface, See Report Social History [...] See Report - 03/19/2013 6:19 AM EST [place] [address] DISCHARGE SUMMARY PATIENT NAME: GI CRUZ [address] [facility] NO: [id number] DATE OF : 1980 DATE OF ADMISSION: [...] and was seen by Dr. Sun in [place] who put her on oral contraceptive pills. The patient continued to have irregular menses and was later seen in [place] where a transvaginal ultrasound was performed showing [...] to do in Dr. Caraballo' office in [place]. Dr. Eric Caraballo in [place], [place] is her family medicine doctor who [...] physician, which is Dr. Eric Caraballo in [place], [place], who has previously been following her PT and INR and making adjustments with her Coumadin. The patient is aware that she will need to follow-up with him in one week. 3. The patient will have her PT and INR drawn on 03/23/2013. Syl Carlin, OB Resident* Dictating for: Jose Jc M.D. AB/HE/margie Voice Rec. ID #[id number] Voice Original ID #[id number] Doc ID #[id number] Rev. #0 cc: Jose Jc M.D.* Eric Caraballo M.D.* DO NOT TEXT EDIT THIS LINE :CDS:862: Authenticated by JOSE JC MD On 04/27/2013 09:58:46 AM Authenticated by JOSE JC MD On 04/28/2013 01:24:21 PM documented in this encounter OR Notes * Op Note - Interface, See Report - 03/19/2013 6:19 AM EST [place] [address] OPERATIVE REPORT PATIENT NAME: GI CRUZ [address] [facility] NO: [id number] DATE OF : 1980 DATE OF OPERATION: [...] She then went to Dr. Sun in [place] who put her on oral contraceptive pills. Her menses were still irregular. The patient then was seen in [place] for similar complaints. The patient was started [...] with definitive therapy. SURGEON: Jose Jc M.D. SPA THERAPIST: Syl Carlin M.D., Resident ANESTHESIA: General endotracheal. [...] transitioned to dorsal lithotomy position [facility]. The patient was then prepped and [...] was made hemostatic with 4-0 Vicryl in rovfdw-uk-sqzbw fashion X2. Also, there was a small [...] Carlin M.D., Resident ED/AB/rxmjh Voice Rec. ID #[id number] Original Voice Rec. ID #[id number] Doc ID #[id number] Revision Count: 0 cc: Jose Jc M.D.* <start header> [place] [address] OPERATIVE REPORT PATIENT NAME: GI CRUZ 1 [facility] NO: [id number] DATE OF : 1980 <end header> DO NOT TEXT EDIT THIS LINE :INSTRUMENT MAKER AND REPAIRER:[id number]: Authenticated by JOSE JC MD On 03/19/2013 [...] EST) PTT 29 24 - 31 Seconds [facility] Comment: US by IF @ 03/20/2013 09:23 PTT = The equivalent PTT values for the therapeutic range of heparin levels at 0.3 to 0.5 U/ml are 45 to 60 seconds. PTT = The equivalent PTT values for the therapeutic range of heparin levels at 0.3 to 0.5 U/ml are 45 to 60 seconds. Blood specimen (specimen) 03/20/2013 8:51 AM EST Narrative [facility] - 03/20/2013 9:23 AM EST Specimen Type: Blood us Joes Jc MD LAB BLOOD ORDERABLES Final Result [facility] [address] [place] [address], * Protime-INR (03/20/2013 8:51 AM EST) Protime 11.5 9.6 - 11.5 Seconds [facility] INR 1.07 [facility] Comment: US by IF @ 03/20/2013 09:23 Therapeutic Ranges for INR: 2.0-3.0 (PT 20-30) 2.5-3.5 (PT 25-34) Blood specimen (specimen) 03/20/2013 8:51 AM EST Narrative [facility] - 03/20/2013 9:23 AM EST Specimen Type: Blood Jose Jc MD LAB BLOOD ORDERABLES Final Result [facility] [address] [place] [address], * (ABNORMAL) Basic metabolic panel (03/20/2013 6:00 AM EST) Glucose 134(H) 70 - 100 mg/dL [facility] BUN 10 6 - 20 mg/dL [facility] Creatinine 0.8 0.6 - 1.3 mg/dL [facility] Sodium 136 136 - 145 mmol/L [facility] Potassium 3.6 3.4 - 5.4 mmol/L [facility] Chloride 100 98 - 107 mmol/L [facility] CO2 26 20 - 31 mmol/L [facility] Calcium 9.2 8.7 - 10.4 mg/dL [facility] Est GFR by Clearance 88 ml/min/1.7 32 [facility] Comment: DF by IF @ 03/20/2013 06:43 National Kidney Foundation Guidelines Stage Description GFR 1 Normal or High 90+ 2 Mild decrease 60-89 3 Moderate decrease 30-59 4 Severe decrease 15-29 5 Kidney failure <15 Anion Gap 9 3 - 11 mmol/L [facility] Blood specimen (specimen) 03/20/2013 6:00 AM EST Narrative [facility] - 03/20/2013 7:02 AM EST Specimen Type: Blood us Syl C Carlin DO LAB BLOOD ORDERABLES Final R esult Performing Organization Address [facility] [place] [address], * (ABNORMAL) CBC (No diff) (03/20/2013 6:00 AM EST) WBC 16.92(H) 3.50 - 10.80 K/[facility] RBC 4.28 3.89 - 5.14 /[facility] Hemoglobin 11.6 11.5 - 15.5 g/dL [facility] Hematocrit 35.4 34.5 - 44.0 % [facility] MCV 82.7 80.0 - 99.0 fL [facility] MCH 27.1 27.0 - 31.0 pg [facility] MCHC 32.8 32.0 - 36.0 g/dL [facility] RDW-CV 14.1 11.3 - 14.5 % [facility] Platelets 332 150 - 450 [facility] Blood specimen (specimen) 03/20/2013 6:00 AM EST [facility] - 03/20/2013 6:22 AM EST Specimen Type: Blood Syl Carlin DO LAB BLOOD ORDERABLES Final R esult Performing Organization Address City/[facility] Co de Phone Number [facility] [address] [place] [address], * Converted Surgical Pathology (03/19/2013 6:19 AM EST) 03/19/2013 6:19 AM EST [facility] - 03/20/2013 12:46 [place] [address] SURGICAL PATHOLOGY REPORT Patient Name: GI CRUZ MR#: [id number] : 1980 Gender: F Ordering Physician: JOSE [...] invasive lesions are identified. The myometrium is martinez and trabecular with a single well-circumscribed martinez/yellow intramural nodule measuring 2.3 cm in greatest dimension. Steam Pan Sponger sections are submitted. Summary of sections: A - frozen section residue; B - anterior and posterior cervix; C-D - anterior endomyometrium; E-F - posterior endomyometrium; G - intramural nodule. M/sk Microscopic Description Sections show secretory endometrium with intraluminal secretions. 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 No other abnormalities are noted. JFJ/sk Previous Pertinent History [id number], 12/15/12: ENDOMETRIUM, BIOPSY: Negative for endometrial functionalis. Abundant endocervical type epithelium. (FLP) [id number],12/08/12: PAP SMEAR: Negative for intraepithelial lesion or malignancy. (PCL) Procedures/Addenda us See Report Interface PATHOLOGY/CYTOLOGY ORDERABL ES Final Result Performing Organization Address [facility]/[place] [address], * SCANNED EKG (03/19/2013) [facility] Onbase ECG ORDERABLES Final Result * (ABNORMAL) APTT (03/18/2013 10:40 AM EST) PTT 37(H) 24 - 31 Seconds [facility] Comment: US by IF @ 03/18/2013 11:21 PTT = The equivalent PTT values for the therapeutic range of heparin levels at 0.3 to 0.5 U/ml are 45 to 60 seconds. PTT = The equivalent PTT values for the therapeutic range of heparin levels at 0.3 to 0.5 U/ml are 45 to 60 seconds. Blood specimen (specimen) 03/18/2013 10:40 AM EST Narrative [facility] - 03/18/2013 11:21 AM EST Specimen Type: Blood Jose Jc MD LAB BLOOD ORDERABLES Final Result Performing Organization Address [facility] [place] [address], * (ABNORMAL) Protime-INR (03/18/2013 10:40 AM EST) Protime 12.5(H) 9.6 - 11.5 Seconds [facility] INR 1.16 [facility] Comment: US by IF @ 03/18/2013 11:21 Therapeutic Ranges for INR: 2.0-3.0 (PT 20-30) 2.5-3.5 (PT 25-34) Blood specimen (specimen) 03/18/2013 10:40 AM EST Narrative [facility] - 03/18/2013 11:21 AM EST Specimen Type: Blood Jose Jc MD LAB BLOOD ORDERABLES Final Result [facility] [address] [place] [address], * hCG, quantitative, (03/18/2013 10:40 AM EST) HCG Quantitative <5.0 mIU/mL [facility] Comment: DF by IF @ 03/18/2013 11:23 HCG Expected Values: Non females less than 5 mIU/mL Males less than 5 mIU/mL 0-1 Weeks Gestation 5-50 1-2 Weeks Gestation 50-500 2-3 Weeks Gestation 100-5000 3-4 Weeks Gestation [id number] 4-5 Weeks Gestation 1000-69070 5-6 Weeks Gestation [id number] 6-8 Weeks Gestation [id number] 2-3 Months Gestation [id number] Note: If a value is between 5-25 mIU/mL recommend repeat testing and clinical correlation. Blood specimen (specimen) 03/18/2013 10:40 AM EST [facility] - 03/18/2013 11:23 AM EST Specimen Type: Blood Jose Jc MD LAB BLOOD ORDERABLES Final Result Performing Organization Address [facility] Co de Phone Number [facility] [address] [place] [address], * Type and screen (03/18/2013 10:40 AM EST) ABORh O Rh Positive [facility] Antibody Screen Negative [facility] Blood specimen (specimen) 03/18/2013 10:40 AM EST [facility] - 03/18/2013 11:49 AM EST Specimen Type: Blood Jose Jc MD BLOOD BANK TEST ORDERABLES Final Result Performing Organization Address City/[facility]/ZIP Co de Phone Number [facility] [address] [place] [address], * (ABNORMAL) Comprehensive metabolic panel (03/18/2013 10:40 AM EST) Glucose 86 70 - 100 mg/dL [facility] BUN 11 6 - 20 mg/dL [facility] Creatinine 0.6 0.6 - 1.3 mg/dL [facility] Sodium 139 136 - 145 mmol/L [facility] Potassium 3.9 3.4 - 5.4 mmol/L [facility] Chloride 102 98 - 107 mmol/L [facility] CO2 28 20 - 31 mmol/L [facility] Calcium 9.8 8.7 - 10.4 mg/dL [facility] Alkaline Phosphatase 126(H) 25 - 100 Units/L [facility] AST (SGOT) 28 8 - 33 Units/L [facility] ALT (SGPT) 38 7 - 40 Units/L [facility] Total Bilirubin 0.7 0.3 - 1.2 mg/dL [facility] Total Protein 8.4(H) 6.4 - 8.3 g/dL [facility] Albumin 4.6 3.4 - 4.8 g/dL [facility] eGFR 126 ml/min/1.7 32 [facility] Comment: DF by IF @ 03/18/2013 11:23 National Kidney Foundation Guidelines Stage Description GFR 1 Normal or High 90+ 2 Mild decrease 60-89 3 Moderate decrease 30-59 4 Severe decrease 15-29 5 Kidney failure <15 Anion Gap 9 3 - 11 mmol/L [facility] Blood specimen (specimen) 03/18/2013 10:40 AM EST Narrative [facility] - 03/18/2013 11:23 AM EST Specimen Type: Blood us Jose Jc MD LAB BLOOD ORDERABLES Final Result [facility] [address] [place] [address], * (ABNORMAL) CBC and Differential (03/18/2013 10:40 AM EST) WBC 10.75 3.50 - 10.80 [facility] RBC 5.03 3.89 - 5.14 [facility] Hemoglobin 13.4 11.5 - 15.5 g/dL [facility] Hematocrit 41.2 34.5 - 44.0 % [facility] MCV 81.9 80.0 - 99.0 fL [facility] MCH 26.6(L) 27.0 - 31.0 pg [facility] MCHC 32.5 32.0 - 36.0 g/dL [facility] RDW-CV 13.7 11.3 - 14.5 % [facility] Platelets 372 150 - 450 [facility] Neutrophils Absolute 7.20 1.50 - 8.30 [facility] Lymphocytes Absolute 2.43 0.60 - 4.80 [facility] Monocytes Absolute 0.76 0.00 - 1.00 [facility] Eosinophils Absolute 0.29 0.10 - 0.30 [facility] Basophils Absolute 0.03 0.00 - 0.20 [facility] Neutrophil Rel % 66.9 41.0 - 71.0 % [facility] Lymphocyte Rel % 22.6(L) 24.0 - 44.0 % [facility] Monocyte Rel % 7.1 0.0 - 12.0 % [facility] Eosinophil Rel % 2.7 0.0 - 3.0 % [facility] Basophil Rel % 0.3 0.0 - 1.0 % [facility] Immature Granulocyte Rel % 0.4 0.0 - 0.6 % [facility] Blood specimen (specimen) 03/18/2013 10:40 AM EST Narrative [facility] - 03/18/2013 11:06 AM EST Specimen Type: Blood us Jose Jc MD LAB BLOOD ORDERABLES Final Result Performing Organization Address City/State/[facility] Co de Phone Number [facility] [place] [address], documented in this encounter Visit Diagnoses Not on filedocumented in this encounter
--- OUTSIDE RECORDS SUMMARY | 2024-10-07 12:10 | XMS_ITS | Clinical Summary ---
Author Organization [facility] ystem Address [address] [place] [address] Care Team Providers Care Care Transition Coordinator Name Role Phone Unavailable Primary Care [...] patient's age to complete this topic Insurance [employer] Member Subscriber Plan / Payer (Ef fective 2023-Present) Name:Gi Smith Relation to Subscriber:Self Name:Gi Smith Payer ID:[id number] (NAIC) Group ID:Not on file Type:Not on file Address: [facility] [id number] [place] [id number]
--- OUTSIDE RECORDS SUMMARY | 2024-10-07 12:10 | XMS_ITS | Encounter Summary ---
Author Organization [employer] ([place], [place], [place], [place]) Address [address] [place] [address] Care Team Providers Care Table Tender Name Role Phone Unavailable Primary Care Provider Unavailabl e Encounter Details Date Type Department Care Team (Late st Contact Info) Description 04/08/2018 Transcribed Document [facility] [place] [facility] [place] [address] ProviderSommer MD [address] [place] [address] Social History Tobacco Use Types Packs/Day Years Used Date Smoking Tobacco: Never Assessed Comments Unknown Sex and Gender Information Value Date Recorded Sex Assigned at Not on file Legal Sex Female 1:18 PM CDT Gender Identity Not on file Sexual Orientation Not on file documented as of this encounter Miscellaneous Notes * Cerner Conversion Note - Sommer ProviderMD - 04/08/2018 8:22 AM TRANSLATOR AND INTERPRETER Discharge Instructions Entered On: 04/08/2018 8:23 EST [...] 8:22 EST Electronically signed by Julio [facility] Conversion Full Time Paramedic Cerner at 06/14/2022 2:54 PM CDT documented in this encounter Plan of Treatment Not on file documented as of this encounter Visit Diagnoses Not on filedocumented in this encounter
--- OUTSIDE RECORDS SUMMARY | 2024-10-07 12:10 | XMS_ITS | Encounter Summary ---
Author Organization [facility] [place] ([place], [place], [place], [place]) Address [address] [place] [address] Care Team Providers Care Prize Jacker Name Role Phone Unavailable Primary Care Provider Unavailabl e Encounter Details Date Type Department Care Team (Late st Contact Info) Description 04/08/2018 Transcribed Document [facility] [place] [place] [address] ProviderSommer MD [address] [place] [address] Social History Tobacco Use Types Packs/Day Years Used Date Smoking Tobacco: Never Assessed Comments Unknown Sex and Gender Information Value Date Recorded Sex Assigned at Not on file Legal Sex Female 1:18 PM CDT Gender Identity Not on file Sexual Orientation Not on file documented as of this encounter Miscellaneous Notes * Cerner Conversion Note - Sommer ProviderMD - 04/08/2018 1:57 PM MORTGAGE LOAN PROCESSING CLERK [place] [address] [facility] [place] [address] Patient Copy Patient Information: Name: GI CRUZ Current Date: 04/08/2018 13:57:07 : 1980 Patient Address: [address] [place] [phone] Patient Attending Physician: YASMANY NEVAREZ MD-ORT Primary Care Provider: RUSS KAN [facility] Primary Care Provider Discharge Diagnosis: Weight on Admission: 251 lb, 0 oz Comment: Follow-up Instructions: With: Address: When: YASMANY NEVAREZ [address] [place] [address], [address] [place] [address] Business (1) Within 1 to [...] any): Final Medication List: Other Medications [place]otin [address] Oral Every Day. carvedilol (carvedilol 25 mg [...] and water are not available, use hand senior boiler operator. ? Change your dressing as told [...] even if your condition improves. ??? Take lkot-eqw-kyhkbsb and prescription medicines only as told by [...] 08/31/2005 Document Revised: 10/19/2016 Document Reviewed: 08/29/2016 [employer] Interactive Patient Education ? 2017 [employer] What You Need to Know About [...] 01/30/2010 Document Revised: 10/04/2016 Document Reviewed: 10/19/2015 [employer] Interactive Patient Education ? 2017 [employer] Myelogram, Care After Introduction Refer to [...] by your health care provider. ??? Take fsex-uuw-tdvvjev and prescription medicines only as told by [...] are taking, including vitamins, herbs, eyedrops, and pjzu-mtr-gzjzdgn medicines and creams. ??? Previous problems you [...] 10/04/2004 Document Revised: 03/04/2015 Document Reviewed: 11/24/2015 [employer] Interactive Patient Education ? 2017 [employer] CIGARETTE SMOKING: The facts are clear, cigarette smoking will shorten your life. Smoking can cause many illnesses along the way. As a healthcare provider, we recommend that you stop smoking. Assistance with quitting is available by contacting 4-740-CWSC-NOW. This is a free resource providing counseling, [...] Be sure to sign up for the [employer] patient portal, which gives you 17/09 access to your medical information ??? including these discharge instructions ??? using your computer, smartphone, or tablet. Just go to [employer] to get started. Questions? Call . [facility] would like to thank you for allowing us to assist you with your healthcare needs. NANCY Trujillo RACHEL A, (or market survey representative) have received the above patient education materials/instructions and have verbalized understanding: Patient Signature _ Date/Time Patient Historic Clothing And Costume Maker Signature (if needed) Date/Time Clinician/Hospital Historic Clothing And Costume Maker Signature (if needed) Date/Time documented in this encounter Plan of Treatment Not on file documented as of this encounter Visit Diagnoses Not on filedocumented in this encounter
--- OUTSIDE RECORDS SUMMARY | 2024-10-07 12:10 | XMS_ITS | Encounter Summary ---
Author Organization [facility] ystem Address [address] [place] [address] Care Team Providers Care Community Outreach Advocate Name Role Phone Unavailable Primary Care Provider Unavailabl e Encounter Details Date Type Department Care Team (Late st Contact Info) Description 03/02/2013 Conversion Encounter [facility] HISTORICAL CONV [address] [place] [address] Interface, See Report Social History [...] See Report - 03/02/2013 12:00 AM EST [facility] [address] [place] [address] Patient: JOYCELYN CRUZ MR #: [id number] : 1980 Date of Visit: 03/02 Referring Physician: Dictated By: Malcolm Nuñez MD Diagnosis: AUB FIBROIDS MORBID OBESITY H/O PULMONARY EMBOLI ( COUMADIN) Allergies: NKDA History of present illness: AUB SINCE 1998. SHE WENT 2 YRS WITH AMENORRHEA. SHE WENT TO DR. WOODS IN [place]. HE PUT HER ON BCP. HER MENSES [...] FXN > 50 % Electronically Signed by: aMlcolm Nuñez MD Date: 03/02/2013 Time: 3:44 PM cc: documented in this encounter Plan of Treatment Not on file documented as of this encounter Visit Diagnoses Not on filedocumented in this encounter
--- OUTSIDE RECORDS SUMMARY | 2024-10-07 12:10 | XMS_ITS | Encounter Summary ---
Author Organization [employer] ([place], [place], [place], [place]) Address [address] [place] [address] Care Team Providers Care Lighting Specialist Name Role Phone Unavailable Primary Care Provider Unavailabl e Encounter Details Date Type Department Care Team (Late st Contact Info) Description 04/08/2018 Transcribed Document [facility] [place] [facility] [address] ProviderSommer MD [address] [place] [address] Social History Tobacco Use Types Packs/Day Years Used Date Smoking Tobacco: Never Assessed Comments Unknown Sex and Gender Information Value Date Recorded Sex Assigned at Not on file Legal Sex Female 1:18 PM CDT Gender Identity Not on file Sexual Orientation Not on file documented as of this encounter Miscellaneous Notes * Cerner Conversion Note - Sommer ProviderMD - 04/08/2018 1:21 PM SCROLL MACHINE OPERATOR [address] , [place] [address] Patient Copy Patient Information: Name: GI CRUZ Current Date: 04/08/2018 13:21:48 : 1980 Patient Address: [address] [place] [id number] Patient Attending Physician: YASMANY NEVAREZ MD-ORT Primary Care Provider: RUSS KAN MD-[facility] Primary Care Provider Discharge Diagnosis: Weight on Admission: 251 lb, 0 oz Comment: Follow-up Instructions: With: Address: When: YASMANY NEVAREZ [address] [place] [address], [address] [place] [address] Business (1) Within 1 to [...] any): Final Medication List: Other Medications biotin 50347 Oral Every Day. carvedilol (carvedilol 25 mg [...] and water are not available, use hand alodize machine operator. ? Change your dressing as told [...] even if your condition improves. ??? Take fbfa-vte-kbnssui and prescription medicines only as told by [...] 08/31/2005 Document Revised: 10/19/2016 Document Reviewed: 08/29/2016 [employer]atic [employer] Interactive Patient Education ? 2017 [employer]. What You Need to Know About [...] 01/30/2010 Document Revised: 10/04/2016 Document Reviewed: 10/19/2015 [employer] Interactive Patient Education ? 2017 [employer]. Myelogram, Care After Introduction Refer to [...] by your health care provider. ??? Take vgqb-vnt-agpxphh and prescription medicines only as told by [...] are taking, including vitamins, herbs, eyedrops, and aymn-crk-hmkwixr medicines and creams. ??? Previous problems you [...] 10/04/2004 Document Revised: 03/04/2015 Document Reviewed: 11/24/2015 [employer] Interactive Patient Education ? 2017 [employer]. CIGARETTE SMOKING: The facts are clear, cigarette smoking will shorten your life. Smoking can cause many illnesses along the way. As a healthcare provider, we recommend that you stop smoking. Assistance with quitting is available by contacting 1-061-KZRG-NOW. This is a free resource providing counseling, [...] Be sure to sign up for the [employer] patient portal, which gives you 17/09 access to your medical information ??? including these discharge instructions ??? using your computer, smartphone, or tablet. Just go to CircleUp to get started. Questions? Call . [facility] would like to thank you for allowing us to assist you with your healthcare needs. NANCY Trujillo RACHEL A, (or account executive sales representative) have received the above patient education materials/instructions and have verbalized understanding: Patient Signature _ Date/Time Patient Cost Accounting Analyst Signature (if needed) Date/Time Clinician/Hospital Cost Accounting Analyst Signature (if needed) Date/Time documented in this encounter Plan of Treatment Not on file documented as of this encounter Visit Diagnoses Not on filedocumented in this encounter
--- OUTSIDE RECORDS SUMMARY | 2024-10-07 12:10 | XMS_ITS | Encounter Summary ---
Author Organization [employer] ([place], [place], [place], [place]) Address [address] [place] [address] Care Team Providers Care Volunteer Services Specialist Name Role Phone Unavailable Primary Care Provider Unavailabl e Encounter Details Date Type Department Care Team (Late st Contact Info) Description 04/08/2018 Transcribed Document [facility] [place] [facility] [place] [address] ProviderSommer MD [address] [place] [address] Social History Tobacco Use Types [...] Sommer Karimi MD - 04/08/2018 1:21 PM STEAM PAN SPONGER Patient Education Materials Follows: Incision Care, Adult [...] and water are not available, use hand car designer. ? Change your dressing as told by [...] even if your condition improves. ??? Take yrnp-nkk-xvpdwdc and prescription medicines only as told by [...] 08/31/2005 Document Revised: 10/19/2016 Document Reviewed: 08/29/2016 ElseNextGen Platform Interactive Patient Education ? 2017 [employer] Inc. Orthopedics Myelogram, Care After Introduction Refer [...] by your health care provider. ??? Take rtlv-tip-awhekuz and prescription medicines only as told by [...] are taking, including vitamins, herbs, eyedrops, and qkvf-amo-msqmbok medicines and creams. ??? Previous problems you [...] 10/04/2004 Document Revised: 03/04/2015 Document Reviewed: 11/24/2015 [employer] Interactive Patient Education ? 2017 [employer]. Radiology What You Need to Know About [...] 01/30/2010 Document Revised: 10/04/2016 Document Reviewed: 10/19/2015 ElseNextGen Platform Interactive Patient Education ? 2017 [employer] Inc. documented in this encounter Plan of Treatment Not on file documented as of this encounter Visit Diagnoses Not on filedocumented in this encounter
--- OUTSIDE RECORDS SUMMARY | 2024-10-07 12:10 | XMS_ITS | Encounter Summary ---
Author Organization [employer] ([place], [place], [place], [place]) Address [address] [place] [address] Care Team Providers Care Office Machine Mechanic Name Role Phone Unavailable Primary Care Provider Unavailabl e Encounter Details Date Type Department Care Team (Late st Contact Info) Description 04/08/2018 Transcribed Document [facility] [place] [facility] [place] [address] ProviderSommer MD [address] [place] [address] Social History Tobacco Use Types Packs/Day Years Used Date Smoking Tobacco: Never Assessed Comments Unknown Sex and Gender Information Value Date Recorded Sex Assigned at Not on file Legal Sex Female 1:18 PM CDT Gender Identity Not on file Sexual Orientation Not on file documented as of this encounter Miscellaneous Notes * Cerner Conversion Note - Sommer ProviderMD - 04/08/2018 8:23 AM SPORTS EDITOR [place] [address] [facility] [facility] [place] [address] Patient Copy Patient Information: Name: GI CRUZ Current Date: 04/08/2018 08:23:47 : 1980 Patient Address: [address] [place] [phone] Patient Attending Physician: YASMANY NEVAREZ MD-ORT Primary Care Provider: RUSS KAN MD-[facility] Primary Care Provider Discharge Diagnosis: Comment: Follow-up Instructions: With: Address: When: YASMANY NEVAREZ [address] [facility], [address] [place] [address] Business (1) Within 1 to 2 weeks Comments: DIRECTED. BRING CD DISC TO APPT Type Location Start Finish State CR [facility]30 [facility] 10:[address] Spine [facility] CT 10:00 AM 10:30 AM Confirmed [...] water are not available, use hand senior oracle pl sql developer. ? Change your dressing as told by [...] even if your condition improves. ??? Take ucbe-xiz-qhjsjfp and prescription medicines only as told by [...] 08/31/2005 Document Revised: 10/19/2016 Document Reviewed: 08/29/2016 ElseEdimer Pharmaceuticals Interactive Patient Education ? 2017 [employer]. What You Need to Know About [...] 01/30/2010 Document Revised: 10/04/2016 Document Reviewed: 10/19/2015 [employer] Interactive Patient Education ? 2017 [employer] Myelogram, Care After Introduction Refer to [...] by your health care provider. ??? Take zats-sqk-vrigrmc and prescription medicines only as told by [...] are taking, including vitamins, herbs, eyedrops, and nqyp-clf-toyliql medicines and creams. ??? Previous problems you [...] 10/04/2004 Document Revised: 03/04/2015 Document Reviewed: 11/24/2015 [employer] Interactive Patient Education ? 2017 [employer]. CIGARETTE SMOKING: The facts are clear, cigarette smoking will shorten your life. Smoking can cause many illnesses along the way. As a healthcare provider, we recommend that you stop smoking. Assistance with quitting is available by contacting 7-241-RNDQ-NOW. This is a free resource providing counseling, [...] Be sure to sign up for the [employer] patient portal, which gives you 17/09 access to your medical information ??? including these discharge instructions ??? using your computer, smartphone, or tablet. Just go to Credport to get started. Questions? Call . [facility] would like to thank you for allowing us to assist you with your healthcare needs. NANCY Trujillo RACHEL A, (or district sales representative) have received the above patient education materials/instructions and have verbalized understanding: Patient Signature _ Date/Time Patient Mcat Tutor Signature (if needed) Date/Time Clinician/Hospital Mcat Tutor Signature (if needed) Date/Time Electronically signed by Selena Kim Conversion Senior Market Intelligence Consultant [employer]ner at 06/14/2022 3:09 PM CDT documented in this encounter Plan of Treatment Not on file documented as of this encounter Visit Diagnoses Not on filedocumented in this encounter
--- OUTSIDE RECORDS SUMMARY | 2024-10-07 12:10 | XMS_ITS | Referral Summary ---
Author Organization [employer] ([place], [place], [place], [place]) Address [address] [place] [address] Care Team Providers Care Risk And Insurance Manager Name Role Phone Unavailable Primary Care [...]
--- OUTSIDE RECORDS SUMMARY | 2024-10-07 12:10 | XMS_ITS | Encounter Summary ---
Author Organization [employer] ([place], [place], [place], [place]) Address [address] [place] [address] Care Team Providers Care Medical Records Assistant Name Role Phone Unavailable Primary Care Provider Unavailabl e Encounter Details Date Type Department Care Team (Late st Contact Info) Description 04/08/2018 Transcribed Document [facility] [place] [facility] [place] [address] ProviderSommer MD [address] [place] [address] Social History Tobacco Use Types Packs/Day Years Used Date Smoking Tobacco: Never Assessed Comments Unknown Sex and Gender Information Value Date Recorded Sex Assigned at Not on file Legal Sex Female 1:18 PM CDT Gender Identity Not on file Sexual Orientation Not on file documented as of this encounter Miscellaneous Notes * Cerner Conversion Note - Sommer ProviderMD - 04/08/2018 2:35 PM PROFESSOR OF BIOCHEMISTRY [address] , [place] [address] Patient Copy Patient Information: Name: GI CRUZ Current Date: 04/08/2018 14:35:16 : 1980 Patient Address: [address] [place] [phone] Patient Attending Physician: YASMANY NEVAREZ MD-ORT Primary Care Provider: RUSS KAN MD-[facility] Primary Care Provider Discharge Diagnosis: Weight on Admission: 251 lb, 0 oz Comment: Follow-up Instructions: With: Address: When: YASMANY NEVAREZ [address] [place] [address], [address] [place] [address] Business (1) Within 1 to [...] any): Final Medication List: Other Medications biotin [address] Oral Every Day. carvedilol (carvedilol 25 mg [...] and water are not available, use hand health information administrator. ? Change your dressing as told by [...] even if your condition improves. ??? Take pnbw-fqj-rgzsroy and prescription medicines only as told by [...] 08/31/2005 Document Revised: 10/19/2016 Document Reviewed: 08/29/2016 ElseNew.net Interactive Patient Education ? 2017 [employer]. What You Need to Know About [...] 01/30/2010 Document Revised: 10/04/2016 Document Reviewed: 10/19/2015 [employer] Interactive Patient Education ? 2017 [employer]. Myelogram, Care After Introduction Refer to [...] by your health care provider. ??? Take iaai-mlq-eshfyze and prescription medicines only as told by [...] are taking, including vitamins, herbs, eyedrops, and tglv-xkh-uaxmpsu medicines and creams. ??? Previous problems you [...] 10/04/2004 Document Revised: 03/04/2015 Document Reviewed: 11/24/2015 [employer] Interactive Patient Education ? 2017 [employer]. CIGARETTE SMOKING: The facts are clear, cigarette smoking will shorten your life. Smoking can cause many illnesses along the way. As a healthcare provider, we recommend that you stop smoking. Assistance with quitting is available by contacting 0-702-NTEB-NOW. This is a free resource providing counseling, [...] Be sure to sign up for the [employer] patient portal, which gives you 17/09 access to your medical information ??? including these discharge instructions ??? using your computer, smartphone, or tablet. Just go to Optify to get started. Questions? Call . [facility] would like to thank you for allowing us to assist you with your healthcare needs. NANCY Trujillo RACHEL A, (or passenger service representative) have received the above patient education materials/instructions and have verbalized understanding: Patient Signature _ Date/Time Patient Dietary Service Aide Signature (if needed) Date/Time Clinician/Hospital Dietary Service Aide Signature (if needed) Date/Time documented in this encounter Plan of Treatment Not on file documented as of this encounter Visit Diagnoses Not on filedocumented in this encounter
--- OUTSIDE RECORDS SUMMARY | 2024-10-07 12:10 | XMS_ITS | Encounter Summary ---
Author Organization [employer] ([place], [place], [place], [place]) Address [address] [place] [address] Care Team Providers Care Career Coordinator Name Role Phone Unavailable Primary Care Provider Unavailabl e Encounter Details Date Type Department Care Team (Late st Contact Info) Description 04/08/2018 Transcribed Document [facility] [place] [address] [place] [address] ProviderSommer MD [address] [place] [id number] Social History Tobacco Use Types Packs/Day Years Used Date Smoking Tobacco: Never Assessed Comments Unknown Sex and Gender Information Value Date Recorded Sex Assigned at Not on file Legal Sex Female 1:18 PM CDT Gender Identity Not on file Sexual Orientation Not on file documented as of this encounter Miscellaneous Notes * Cerner Conversion Note - Sommer ProviderMD - 04/08/2018 11:14 AM STOREPERSON Patient: GI CRUZ Age: 37 years Sex: [...]
--- OUTSIDE RECORDS SUMMARY | 2024-10-07 12:10 | XMS_ITS | Encounter Summary ---
Author Organization [facility] Address [address] [place] [address] Care Team Providers Care Maintenance Job Titles Name Role Phone Unavailable Primary Care Provider Unavailabl e Encounter Details Date Type Department Care Team (Late st Contact Info) Description 04/13/2013 Conversion Encounter [facility] HISTORICAL CONV [address] [place] [address] Interface, See Report Social History [...] See Report - 04/13/2013 12:00 AM EST DELIVERY TRUCK DRIVER-Oncology Services [address] [place] [address] Patient: JOYCELYN CRUZ MR #: [id number] : 1980 Date of Visit: 04/13/2013 Referring [...]
[2024-10-07 14:12] LABS: Cortisol,AM 7.7 ug/dL (6.2-19.4)
== END 2024-10-06 23:59 | disposition home or self-care (01) ==
LOC: LAB.DROPOF 10-07 12:08
PROVIDERS: PCP Nurse Practitioner Family; Visit Provider Nurse Practitioner Family
DX: D72.829 Elevated white blood cell count, unspecified (principal); D50.9 Iron deficiency anemia, unspecified; E11.9 Type 2 diabetes mellitus without complications; R79.89 Other specified abnormal findings of blood chemistry
CPT/HCPCS: 80053; 81001; 82043; 82533; 82570; 82728; 83036; 83735; 85025; 87086

== ENCOUNTER 2024-10-09 11:53 | Outpatient (CLI) | payer BC, SELFPAY ==
--- OUTSIDE RECORDS SUMMARY | 2024-10-09 12:06 | XMS_ITS | Encounter Summary ---
Author Organization [employer] ([place], [place], [place], [place]) Address [address] [place] [address] Care Team Providers Care Duty Officer Name Role Phone Unavailable Primary Care Provider Unavailabl e Encounter Details Date Type Department Care Team (Late st Contact Info) Description 04/08/2018 Transcribed Document [facility] [place] [facility] [place] [address] ProviderSommer MD [address] [place] [address] Social History Tobacco Use Types Packs/Day Years Used Date Smoking Tobacco: Never Assessed Comments Unknown Sex and Gender Information Value Date Recorded Sex Assigned at Not on file Legal Sex Female 1:18 PM CDT Gender Identity Not on file Sexual Orientation Not on file documented as of this encounter Miscellaneous Notes * Cerner Conversion Note - Sommer ProviderMD - 04/08/2018 8:22 AM CUP SETTER LOCKSTITCH Discharge Instructions Entered On: 04/08/2018 8:23 EST [...] EST Electronically signed by Julio [facility] Conversion Price Economist Cerner at 06/14/2022 2:54 PM CDT documented in this encounter Plan of Treatment Not on file documented as of this encounter Visit Diagnoses Not on filedocumented in this encounter
--- OUTSIDE RECORDS SUMMARY | 2024-10-09 12:06 | XMS_ITS | Encounter Summary ---
Author Organization [facility] ystem Address [address] [place] [address] Care Team Providers Care Closet Builder Name Role Phone Unavailable Primary Care Provider Unavailabl e Encounter Details Date Type Department Care Team (Late st Contact Info) Description 03/19/2013 Conversion Encounter [facility] HISTORICAL CONV [address] [place] [address] Interface, See Report Social History [...] See Report - 03/19/2013 6:19 AM EST [place] [address] DISCHARGE SUMMARY PATIENT NAME: GI CRUZ [address] [facility] NO: [id number] DATE OF : 1980 DATE OF ADMISSION: 03/19/2013 DATE OF DISCHARGE: 03/20/2013 ATTENDING PHYSICIAN: HSOEA Swain DISCHARGE DIAGNOSES: 1. Abnormal uterine bleeding. 2. Uterine fibroids. 3. Hypertension. 4. History of congestive heart failure. 5. History of bilateral pulmonary embolisms. PROCEDURES PERFORMED: Transvaginal hysterectomy. HISTORY OF PRESENT ILLNESS: This is a 32-year-old female who complains of abnormal uterine bleeding since 1998. The patient went two years with amenorrhea and was seen by Dr. Sun in [place] who put her on oral contraceptive pills. The patient continued to have irregular menses and was later seen in [place] where a transvaginal ultrasound was performed showing [...] to do in Dr. Caraballo' office in [place]. Dr. Eric Caraballo in [place], [place] is her family medicine doctor who [...] physician, which is Dr. Eric Caraballo in [place], [place], who has previously been following her PT and INR and making adjustments with her Coumadin. The patient is aware that she will need to follow-up with him in one week. 3. The patient will have her PT and INR drawn on 03/23/2013. Syl Carlin, OB Resident* Dictating for: Jose Jc M.D. AB/HE/amrgie Voice Rec. ID #[id number] Voice Original ID #[id number] Doc ID #[id number] Rev. #0 cc: Jose Jc M.D.* Eric Caraballo M.D.* DO NOT TEXT EDIT THIS LINE :CDS:862: Authenticated by JOSE JC MD On 04/27/2013 09:58:46 AM Authenticated by JOSE JC MD On 04/28/2013 01:24:21 PM documented in this encounter OR Notes * Op Note - Interface, See Report - 03/19/2013 6:19 AM EST [place] [address] OPERATIVE REPORT PATIENT NAME: GI CRUZ [address] [facility] NO: [id number] DATE OF : 1980 DATE OF OPERATION: [...] She then went to Dr. Sun in [place] who put her on oral contraceptive pills. Her menses were still irregular. The patient then was seen in [place] for similar complaints. The patient was started [...] with definitive therapy. SURGEON: Jose Jc M.D. BENDING SHED WORKER: Syl Carlin M.D., Resident ANESTHESIA: General endotracheal. [...] transitioned to dorsal lithotomy position using the [facility] stirrups. The patient was then prepped and [...] was made hemostatic with 4-0 Vicryl in grqtqw-zv-lbmuk fashion X2. Also, there was a small [...] Carlin M.D., Resident ED/AB/rxmjh Voice Rec. ID #[id number] Original Voice Rec. ID #[id number] Doc ID #[id number] Revision Count: 0 cc: Jose Jc M.D.* <start header> [place] [address] OPERATIVE REPORT PATIENT NAME: GI CRUZ 1 [facility] NO: [id number] DATE OF : 1980 <end header> DO NOT TEXT EDIT THIS LINE :TRAVEL DIRECTOR:[id number]: Authenticated by JOSE JC MD On 03/19/2013 [...] EST) PTT 29 24 - 31 Seconds [facility] Comment: US by IF @ 03/20/2013 09:23 PTT = The equivalent PTT values for the therapeutic range of heparin levels at 0.3 to 0.5 U/ml are 45 to 60 seconds. PTT = The equivalent PTT values for the therapeutic range of heparin levels at 0.3 to 0.5 U/ml are 45 to 60 seconds. Blood specimen (specimen) 03/20/2013 8:51 AM EST Narrative [facility] - 03/20/2013 9:23 AM EST Specimen Type: Blood us Jose Jc MD LAB BLOOD ORDERABLES Final Result [facility] [address] [place] [address], * Protime-INR (03/20/2013 8:51 AM EST) Protime 11.5 9.6 - 11.5 Seconds [facility] INR 1.07 [facility] Comment: US by IF @ 03/20/2013 09:23 Therapeutic Ranges for INR: 2.0-3.0 (PT 20-30) 2.5-3.5 (PT 25-34) Blood specimen (specimen) 03/20/2013 8:51 AM EST Narrative [facility] - 03/20/2013 9:23 AM EST Specimen Type: Blood Jose Jc MD LAB BLOOD ORDERABLES Final Result [facility] [address] [place] [address], * (ABNORMAL) Basic metabolic panel (03/20/2013 6:00 AM EST) Glucose 134(H) 70 - 100 mg/dL [facility] BUN 10 6 - 20 mg/dL [facility] Creatinine 0.8 0.6 - 1.3 mg/dL [facility] Sodium 136 136 - 145 mmol/L [facility] Potassium 3.6 3.4 - 5.4 mmol/L [facility] Chloride 100 98 - 107 mmol/L [facility] CO2 26 20 - 31 mmol/L [facility] Calcium 9.2 8.7 - 10.4 mg/dL [facility] Est GFR by Clearance 88 ml/min/1.7 32 [facility] Comment: DF by IF @ 03/20/2013 06:43 National Kidney Foundation Guidelines Stage Description GFR 1 Normal or High 90+ 2 Mild decrease 60-89 3 Moderate decrease 30-59 4 Severe decrease 15-29 5 Kidney failure <15 Anion Gap 9 3 - 11 mmol/L [facility] Blood specimen (specimen) 03/20/2013 6:00 AM EST Narrative [facility] - 03/20/2013 7:02 AM EST Specimen Type: Blood us Syl C Carlin DO LAB BLOOD ORDERABLES Final R esult Performing Organization Address [facility] [place] [address], * (ABNORMAL) CBC (No diff) (03/20/2013 6:00 AM EST) WBC 16.92(H) 3.50 - 10.80 K/[facility] RBC 4.28 3.89 - 5.14 /[facility] Hemoglobin 11.6 11.5 - 15.5 g/dL [facility] Hematocrit 35.4 34.5 - 44.0 % [facility] MCV 82.7 80.0 - 99.0 fL [facility] MCH 27.1 27.0 - 31.0 pg [facility] MCHC 32.8 32.0 - 36.0 g/dL [facility] RDW-CV 14.1 11.3 - 14.5 % [facility] Platelets 332 150 - 450 K/[facility] Blood specimen (specimen) 03/20/2013 6:00 AM EST [facility] - 03/20/2013 6:22 AM EST Specimen Type: Blood Syl Carlin DO LAB BLOOD ORDERABLES Final R esult Performing Organization Address City/[facility] Co de Phone Number [facility] [address] [place] [address], * Converted Surgical Pathology (03/19/2013 6:19 AM EST) 03/19/2013 6:19 AM EST [facility] - 03/20/2013 12:46 [place] [address] SURGICAL PATHOLOGY REPORT Patient Name: GI CRUZ MR#: [id number] : 1980 Gender: F Ordering Physician: JOSE [...] nodule measuring 2.3 cm in greatest dimension. Lower In Supervisor sections are submitted. Summary of sections: A - frozen section residue; B - anterior and posterior cervix; C-D - anterior endomyometrium; E-F - posterior endomyometrium; G - intramural nodule. M/sk Microscopic Description Sections show secretory endometrium with intraluminal secretions. 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 No other abnormalities are noted. JFJ/sk Previous Pertinent History [id number], 12/15/12: ENDOMETRIUM, BIOPSY: Negative for endometrial functionalis. Abundant endocervical type epithelium. (FLP) [id number],12/08/12: PAP SMEAR: Negative for intraepithelial lesion or malignancy. (PCL) Procedures/Addenda us See Report Interface PATHOLOGY/CYTOLOGY ORDERABL ES Final Result Performing Organization Address [facility]/[place] [address], * SCANNED EKG (03/19/2013) [facility] On[facility] ECG ORDERABLES Final Result * (ABNORMAL) APTT (03/18/2013 10:40 AM EST) PTT 37(H) 24 - 31 Seconds [facility] Comment: US by IF @ 03/18/2013 11:21 PTT = The equivalent PTT values for the therapeutic range of heparin levels at 0.3 to 0.5 U/ml are 45 to 60 seconds. PTT = The equivalent PTT values for the therapeutic range of heparin levels at 0.3 to 0.5 U/ml are 45 to 60 seconds. Blood specimen (specimen) 03/18/2013 10:40 AM EST Narrative [facility] - 03/18/2013 11:21 AM EST Specimen Type: Blood Jose Jc MD LAB BLOOD ORDERABLES Final Result Performing Organization Address [facility] [place] [address], * (ABNORMAL) Protime-INR (03/18/2013 10:40 AM EST) Protime 12.5(H) 9.6 - 11.5 Seconds [facility] INR 1.16 [facility] Comment: US by IF @ 03/18/2013 11:21 Therapeutic Ranges for INR: 2.0-3.0 (PT 20-30) 2.5-3.5 (PT 25-34) Blood specimen (specimen) 03/18/2013 10:40 AM EST Narrative [facility] - 03/18/2013 11:21 AM EST Specimen Type: Blood Jose Jc MD LAB BLOOD ORDERABLES Final Result [facility] [address] [place] [address], * hCG, quantitative, (03/18/2013 10:40 AM EST) HCG Quantitative <5.0 mIU/mL [facility] Comment: DF by IF @ 03/18/2013 11:23 HCG Expected Values: Non females less than 5 mIU/mL Males less than 5 mIU/mL 0-1 Weeks Gestation 5-50 1-2 Weeks Gestation 50-500 2-3 Weeks Gestation 100-5000 3-4 Weeks Gestation 500-09809 4-5 Weeks Gestation 1000-12081 5-6 Weeks Gestation [id number] 6-8 Weeks Gestation [id number] 2-3 Months Gestation [id number] Note: If a value is between 5-25 mIU/mL recommend repeat testing and clinical correlation. Blood specimen (specimen) 03/18/2013 10:40 AM EST [facility] - 03/18/2013 11:23 AM EST Specimen Type: Blood Jose Jc MD LAB BLOOD ORDERABLES Final Result Performing Organization Address [facility] Co de Phone Number [facility] [address] [place] [address], * Type and screen (03/18/2013 10:40 AM EST) ABORh O Rh Positive [facility] Antibody Screen Negative [facility] Blood specimen (specimen) 03/18/2013 10:40 AM EST [facility] - 03/18/2013 11:49 AM EST Specimen Type: Blood Jose Jc MD BLOOD BANK TEST ORDERABLES Final Result Performing Organization Address City/[facility]/ZIP Co de Phone Number [facility] [address] [place] [address], * (ABNORMAL) Comprehensive metabolic panel (03/18/2013 10:40 AM EST) Glucose 86 70 - 100 mg/dL [facility] BUN 11 6 - 20 mg/dL [facility] Creatinine 0.6 0.6 - 1.3 mg/dL [facility] Sodium 139 136 - 145 mmol/L [facility] Potassium 3.9 3.4 - 5.4 mmol/L [facility] Chloride 102 98 - 107 mmol/L [facility] CO2 28 20 - 31 mmol/L [facility] Calcium 9.8 8.7 - 10.4 mg/dL [facility] Alkaline Phosphatase 126(H) 25 - 100 Units/L [facility] AST (SGOT) 28 8 - 33 Units/L [facility] ALT (SGPT) 38 7 - 40 Units/L [facility] Total Bilirubin 0.7 0.3 - 1.2 mg/dL [facility] Total Protein 8.4(H) 6.4 - 8.3 g/dL [facility] Albumin 4.6 3.4 - 4.8 g/dL [facility] eGFR 126 ml/min/1.7 32 [facility] Comment: DF by IF @ 03/18/2013 11:23 National Kidney Foundation Guidelines Stage Description GFR 1 Normal or High 90+ 2 Mild decrease 60-89 3 Moderate decrease 30-59 4 Severe decrease 15-29 5 Kidney failure <15 Anion Gap 9 3 - 11 mmol/L [facility] Blood specimen (specimen) 03/18/2013 10:40 AM EST Narrative [facility] - 03/18/2013 11:23 AM EST Specimen Type: Blood us Jose Jc MD LAB BLOOD ORDERABLES Final Result [facility] [address] [place] [address], * (ABNORMAL) CBC and Differential (03/18/2013 10:40 AM EST) WBC 10.75 3.50 - 10.80 K/[facility] RBC 5.03 3.89 - 5.14 M/[facility] Hemoglobin 13.4 11.5 - 15.5 g/dL [facility] Hematocrit 41.2 34.5 - 44.0 % [facility] MCV 81.9 80.0 - 99.0 fL [facility] MCH 26.6(L) 27.0 - 31.0 pg [facility] MCHC 32.5 32.0 - 36.0 g/dL [facility] RDW-CV 13.7 11.3 - 14.5 % [facility] Platelets 372 150 - 450 K/[facility] Neutrophils Absolute 7.20 1.50 - 8.30 [facility] Lymphocytes Absolute 2.43 0.60 - 4.80 [facility] Monocytes Absolute 0.76 0.00 - 1.00 [facility] Eosinophils Absolute 0.29 0.10 - 0.30 [facility] Basophils Absolute 0.03 0.00 - 0.20 [facility] Neutrophil Rel % 66.9 41.0 - 71.0 % [facility] Lymphocyte Rel % 22.6(L) 24.0 - 44.0 % [facility] Monocyte Rel % 7.1 0.0 - 12.0 % [facility] Eosinophil Rel % 2.7 0.0 - 3.0 % [facility] Basophil Rel % 0.3 0.0 - 1.0 % [facility] Immature Granulocyte Rel % 0.4 0.0 - 0.6 % [facility] Blood specimen (specimen) 03/18/2013 10:40 AM EST Narrative [facility] - 03/18/2013 11:06 AM EST Specimen Type: Blood us Jose Jc MD LAB BLOOD ORDERABLES Final Result Performing Organization Address City/State/[facility] Co de Phone Number [facility] [place] [address], documented in this encounter Visit Diagnoses Not on filedocumented in this encounter
--- OUTSIDE RECORDS SUMMARY | 2024-10-09 12:06 | XMS_ITS | Encounter Summary ---
Author Organization [employer] ([place], [place], [place], [place]) Address [address] [place] [address] Care Team Providers Care Pastry Wrapper Name Role Phone Unavailable Primary Care Provider Unavailabl e Encounter Details Date Type Department Care Team (Late st Contact Info) Description 04/08/2018 Transcribed Document [facility] [place] [place] [facility] [place] [address] ProviderSommer MD [address] [place] [address] Social History Tobacco Use Types Packs/Day Years Used Date Smoking Tobacco: Never Assessed Comments Unknown Sex and Gender Information Value Date Recorded Sex Assigned at Not on file Legal Sex Female 1:18 PM CDT Gender Identity Not on file Sexual Orientation Not on file documented as of this encounter Miscellaneous Notes * Cerner Conversion Note - Sommer ProviderMD - 04/08/2018 8:35 AM SAW EDGE FUSER CIRCULAR PAT / Pre Procedure Adult Entered On: 04/08/2018 8:43 EST Performed On: 04/08/2018 8:35 EST by LY LIMA RN General Info Arrived From : Home Mode of Arrival on Unit : Ambulatory Patient Arrival Date/Time : 04/08/2018 8:05 EST Legal Guardian : Spouse Support Person/Pt Rep Name : MAR- Support Person/Pt Rep Contact Information : [phone] Want Family/Rep/Phys Notified of Admit : No Emergency Contact #1 : NA Emergency Contact #1 Phone Number : NA Emergency Contact #1 Relationship : NA Emergency Contact #2 : NA Emergency Contact #2 Phone Number : NA Emergency Contact #2 Relationship : NA Information Obtained From : Patient Primary Language : Luxembourgish Communication Barrier : None LY LIMA RN - 04/08/2018 8:35 EST Height and Weight, Clinical Dosing Height Source : Stated Height Entry Format : Webster Height, Feet : 5 ft(Converted to: 152 cm, 60 Inch) Height, Inches : 3 Inch(Converted to: 0 ft 3 Inch, 7.62 cm) Clinical Height : 160.02 cm Weight Source : Standing scale Weight Entry Format : Webster Clinical Dosing Weight : 114.09 kg Weight, Pounds : 251 lb Body Surface Area (BSA) : 2.13 m2 Body Mass Index : 44.6 kg/m2 (>HHI) [place] Body Weight : 52 kg LY LIMA [...] Scale Risk Level : 25-45 Medium Risk [place] Fall Interventions : Adequate lighting, Assistive devices [...]
--- OUTSIDE RECORDS SUMMARY | 2024-10-09 12:06 | XMS_ITS | Encounter Summary ---
Author Organization [employer] ([place], [place], [place], [place]) Address [address] [place] [address] Care Team Providers Care Professor Of Psychology Name Role Phone Unavailable Primary Care Provider Unavailabl e Encounter Details Date Type Department Care Team (Late st Contact Info) Description 04/08/2018 Transcribed Document [facility] Family Medicine [address] [place] [address] ProviderSommer MD [address] [place] [id number] Social History Tobacco Use Types Packs/Day Years Used Date Smoking Tobacco: Never Assessed Comments Unknown Sex and Gender Information Value Date Recorded Sex Assigned at Not on file Legal Sex Female 1:18 PM CDT Gender Identity Not on file Sexual Orientation Not on file documented as of this encounter Miscellaneous Notes * Cerner Conversion Note - Sommer ProviderMD - 04/08/2018 11:14 AM PRINCIPAL WEB DEVELOPER Patient: GI CRUZ Age: 37 years Sex: [...]
--- OUTSIDE RECORDS SUMMARY | 2024-10-09 12:06 | XMS_ITS | Encounter Summary ---
Author Organization [employer] ([place], [place], [place], [place]) Address [address] [place] [address] Care Team Providers Care Igniter Capper Name Role Phone Unavailable Primary Care Provider Unavailabl e Encounter Details Date Type Department Care Team (Late st Contact Info) Description 04/08/2018 Transcribed Document [facility] [place] [facility] [place] [address] ProviderSommer MD [address] [place] [address] Social History Tobacco Use Types Packs/Day Years Used Date Smoking Tobacco: Never Assessed Comments Unknown Sex and Gender Information Value Date Recorded Sex Assigned at Not on file Legal Sex Female 1:18 PM CDT Gender Identity Not on file Sexual Orientation Not on file documented as of this encounter Miscellaneous Notes * Cerner Conversion Note - Sommer ProviderMD - 04/08/2018 1:21 PM TETRYL NITRATOR OPERATOR [address] , [place] [address] Patient Copy Patient Information: Name: GI CRUZ Current Date: 04/08/2018 13:21:48 : 1980 Patient Address: [address] [place] [id number] Patient Attending Physician: YASMANY NEVAREZ MD-ORT Primary Care Provider: RUSS KAN MD-[facility] Primary Care Provider Discharge Diagnosis: Weight on Admission: 251 lb, 0 oz Comment: Follow-up Instructions: With: Address: When: YASMANY NEVAREZ [address] [place] [address], [address] [place] [address] Business (1) Within 1 to [...] any): Final Medication List: Other Medications biotin [address] Oral Every Day. carvedilol (carvedilol 25 mg [...] and water are not available, use hand bushel worker. ? Change your dressing as told by [...] even if your condition improves. ??? Take djss-zvt-hbtcmbh and prescription medicines only as told by [...] 08/31/2005 Document Revised: 10/19/2016 Document Reviewed: 08/29/2016 [employer] Interactive Patient Education ? 2017 [employer] What You Need to Know About [...] 01/30/2010 Document Revised: 10/04/2016 Document Reviewed: 10/19/2015 [employer] Patient Education ? 2017 [employer] Myelogram, Care After Introduction Refer to [...] by your health care provider. ??? Take tkke-knh-admqnic and prescription medicines only as told by [...] are taking, including vitamins, herbs, eyedrops, and wumx-jpr-btmhpid medicines and creams. ??? Previous problems you [...] 10/04/2004 Document Revised: 03/04/2015 Document Reviewed: 11/24/2015 [employer] Patient Education ? 2017 [employer] CIGARETTE SMOKING: The facts are clear, cigarette smoking will shorten your life. Smoking can cause many illnesses along the way. As a healthcare provider, we recommend that you stop smoking. Assistance with quitting is available by contacting 9-432-CTJU-NOW. This is a free resource providing counseling, [...] Be sure to sign up for the [email or web address] patient portal, which gives you 17/09 access to your medical information ??? including these discharge instructions ??? using your computer, smartphone, or tablet. Just go to [employer] to get started. Questions? Call . [facility] would like to thank you for allowing us to assist you with your healthcare needs. NANCY Trujillo RACHEL A, (or assisted sales representative) have received the above patient education materials/instructions and have verbalized understanding: Patient Signature _ Date/Time Patient Barrelhead Inspector Signature (if needed) Date/Time Clinician/Hospital Barrelhead Inspector Signature (if needed) Date/Time documented in this encounter Plan of Treatment Not on file documented as of this encounter Visit Diagnoses Not on filedocumented in this encounter
--- OUTSIDE RECORDS SUMMARY | 2024-10-09 12:06 | XMS_ITS | Clinical Summary ---
Author Organization [employer] ([place], [place], [place], [place]) Address [address] [place] [address] Care Team Providers Care Organizational Development Director Name Role Phone Unavailable Primary Care Provider [...]
--- OUTSIDE RECORDS SUMMARY | 2024-10-09 12:06 | XMS_ITS | Encounter Summary ---
Author Organization [employer] ([place], [place], [place], [place]) Address [address] [place] [address] Care Team Providers Care Ip Attorney Name Role Phone Unavailable Primary Care Provider Unavailabl e Encounter Details Date Type Department Care Team (Late st Contact Info) Description 04/08/2018 Transcribed Document [facility] [place] Family Medicine Count includes the [facility] [place] [address] ProviderSommer MD [address] [place] [address] Social History Tobacco Use Types Packs/Day Years Used Date Smoking Tobacco: Never Assessed Comments Unknown Sex and Gender Information Value Date Recorded Sex Assigned at Not on file Legal Sex Female 1:18 PM CDT Gender Identity Not on file Sexual Orientation Not on file documented as of this encounter Miscellaneous Notes * Cerner Conversion Note - Sommer ProviderMD - 04/08/2018 2:35 PM LANDING MAN [address] , [place] [address] Patient Copy Patient Information: Name: GI CRUZ Current Date: 04/08/2018 14:35:16 : 1980 Patient Address: [address] [place] [id number] Patient Attending Physician: YASMANY NEVAREZ MD-ORT Primary Care Provider: RUSS KAN MD-[facility] Primary Care Provider Discharge Diagnosis: Weight on Admission: 251 lb, 0 oz Comment: Follow-up Instructions: With: Address: When: YASMANY NEVAREZ [address] [place] [address], [address] [place] [address] Business (1) Within 1 to [...] any): Final Medication List: Other Medications biotin 82316 Oral Every Day. carvedilol (carvedilol 25 mg [...] and water are not available, use hand foundation engineer. ? Change your dressing as told by [...] even if your condition improves. ??? Take dgff-muo-rlrfupl and prescription medicines only as told by [...] 08/31/2005 Document Revised: 10/19/2016 Document Reviewed: 08/29/2016 ElseWIN Advanced Systems Interactive Patient Education ? 2017 [employer] What You Need to Know About [...] 01/30/2010 Document Revised: 10/04/2016 Document Reviewed: 10/19/2015 [employer] Interactive Patient Education ? 2017 [employer] Myelogram, Care After Introduction Refer to [...] by your health care provider. ??? Take eiye-kqq-ajtzvix and prescription medicines only as told by [...] are taking, including vitamins, herbs, eyedrops, and xljl-eeo-bflkyrp medicines and creams. ??? Previous problems you [...] 10/04/2004 Document Revised: 03/04/2015 Document Reviewed: 11/24/2015 [employer] Interactive Patient Education ? 2017 [employer] CIGARETTE SMOKING: The facts are clear, cigarette smoking will shorten your life. Smoking can cause many illnesses along the way. As a healthcare provider, we recommend that you stop smoking. Assistance with quitting is available by contacting 4-611-VPZE-NOW. This is a free resource providing counseling, [...] Be sure to sign up for the [employer] patient portal, which gives you 17/09 access to your medical information ??? including these discharge instructions ??? using your computer, smartphone, or tablet. Just go to [employer] to get started. Questions? Call . [facility] would like to thank you for allowing us to assist you with your healthcare needs. NANCY Trujillo RACHEL A, (or sales representative publications) have received the above patient education materials/instructions and have verbalized understanding: Patient Signature _ Date/Time Patient Coal Mine Inspector Signature (if needed) Date/Time Clinician/Hospital Coal Mine Inspector Signature (if needed) Date/Time documented in this encounter Plan of Treatment Not on file documented as of this encounter Visit Diagnoses Not on filedocumented in this encounter
--- OUTSIDE RECORDS SUMMARY | 2024-10-09 12:06 | XMS_ITS | Referral Summary ---
Author Organization [employer] ([place], [place], [place], [place]) Address [address] [place] [address] Care Team Providers Care Bituminous Distributor Operator Name Role Phone Unavailable Primary Care [...]
--- OUTSIDE RECORDS SUMMARY | 2024-10-09 12:06 | XMS_ITS | Encounter Summary ---
Author Organization [facility] ystem Address [address] [place] [address] Care Team Providers Care Gas Welding Equipment Mechanic Name Role Phone Unavailable Primary Care Provider Unavailabl e Encounter Details Date Type Department Care Team (Late st Contact Info) Description 03/02/2013 Conversion Encounter [facility] HISTORICAL CONV [address] [place] [address] Interface, See Report Social History [...] See Report - 03/02/2013 12:00 AM EST ANIMAL ASSISTED THERAPIST-Oncology Services [address] [place] [address] Patient: JOYCELYN CRUZ MR #: [id number] : 1980 Date of Visit: 03/02 Referring Physician: Dictated By: Malcolm Nuñez MD Diagnosis: AUB FIBROIDS MORBID OBESITY H/O PULMONARY EMBOLI ( COUMADIN) Allergies: NKDA History of present illness: AUB SINCE 1998. SHE WENT 2 YRS WITH AMENORRHEA. SHE WENT TO DR. WOODS IN [place]. HE PUT HER ON BCP. HER MENSES [...] > 50 % Electronically Signed by: Malcolm Nuñez MD Date: 03/02/2013 Time: 3:44 PM cc: documented in this encounter Plan of Treatment Not on file documented as of this encounter Visit Diagnoses Not on filedocumented in this encounter
--- OUTSIDE RECORDS SUMMARY | 2024-10-09 12:06 | XMS_ITS | Encounter Summary ---
Author Organization [employer] ([place], [place], [place], [place]) Address [address] [place] [address] Care Team Providers Care Director Gift Name Role Phone Unavailable Primary Care Provider Unavailabl e Encounter Details Date Type Department Care Team (Late st Contact Info) Description 04/08/2018 Transcribed Document [facility] [place] [facility] [place] [address] ProviderSommer MD [address] [place] [address] Social History Tobacco Use Types Packs/Day Years Used Date Smoking Tobacco: Never Assessed Comments Unknown Sex and Gender Information Value Date Recorded Sex Assigned at Not on file Legal Sex Female 1:18 PM CDT Gender Identity Not on file Sexual Orientation Not on file documented as of this encounter Miscellaneous Notes * Cerner Conversion Note - Sommer ProviderMD - 04/08/2018 1:57 PM VIDEO ENGINEER [address] , [place] [address] Patient Copy Patient Information: Name: GI CRUZ Current Date: 04/08/2018 13:57:07 : 1980 Patient Address: [address] [place] [phone] Patient Attending Physician: YASMANY NEVAREZ MD-ORT Primary Care Provider: RUSS KAN MD-[facility] Primary Care Provider Discharge Diagnosis: Weight on Admission: 251 lb, 0 oz Comment: Follow-up Instructions: With: Address: When: YASMANY NEVAREZ [address] [place] [address], [address] [place] [address] Business (1) Within 1 to [...] any): Final Medication List: Other Medications biotin 30024 Oral Every Day. carvedilol (carvedilol 25 mg [...] and water are not available, use hand rn medical inpatient services. ? Change your dressing as told by [...] even if your condition improves. ??? Take zrmo-zfk-zarsayo and prescription medicines only as told by [...] 08/31/2005 Document Revised: 10/19/2016 Document Reviewed: 08/29/2016 ElseADVANCE Medical Interactive Patient Education ? 2017 [employer] What You Need to Know About [...] 01/30/2010 Document Revised: 10/04/2016 Document Reviewed: 10/19/2015 [employer] Interactive Patient Education ? 2017 [employer] Myelogram, Care After Introduction Refer to [...] by your health care provider. ??? Take znmr-pnl-dhmjqio and prescription medicines only as told by [...] are taking, including vitamins, herbs, eyedrops, and oayf-bly-ggjqcma medicines and creams. ??? Previous problems you [...] 10/04/2004 Document Revised: 03/04/2015 Document Reviewed: 11/24/2015 [employer] Interactive Patient Education ? 2017 [employer] CIGARETTE SMOKING: The facts are clear, cigarette smoking will shorten your life. Smoking can cause many illnesses along the way. As a healthcare provider, we recommend that you stop smoking. Assistance with quitting is available by contacting 6-469-TAWN-NOW. This is a free resource providing counseling, [...] Be sure to sign up for the [employer] patient portal, which gives you 17/09 access to your medical information ??? including these discharge instructions ??? using your computer, smartphone, or tablet. Just go to [employer] to get started. Questions? Call . [facility] would like to thank you for allowing us to assist you with your healthcare needs. NANCY Trujillo RACHEL A, (or sales representative marine supplies) have received the above patient education materials/instructions and have verbalized understanding: Patient Signature _ Date/Time Patient Bundle Breaker Signature (if needed) Date/Time Clinician/Hospital Bundle Breaker Signature (if needed) Date/Time documented in this encounter Plan of Treatment Not on file documented as of this encounter Visit Diagnoses Not on filedocumented in this encounter
--- OUTSIDE RECORDS SUMMARY | 2024-10-09 12:06 | XMS_ITS | Encounter Summary ---
Author Organization [facility] ystem Address [address] [place] [address] Care Team Providers Care Manager Of Engineering Name Role Phone Unavailable Primary Care Provider Unavailabl e Encounter Details Date Type Department Care Team (Late st Contact Info) Description 04/13/2013 Conversion Encounter [facility] HISTORICAL CONV [address] [place] [address] Interface, See Report Social History [...] See Report - 04/13/2013 12:00 AM EST VERIFICATION REP-Oncology Services [address] [place] [address] Patient: JOYCELYN CRUZ MR #: [id number] : 1980 Date of Visit: 04/13/2013 Referring [...]
--- OUTSIDE RECORDS SUMMARY | 2024-10-09 12:06 | XMS_ITS | Encounter Summary ---
Author Organization [employer] ([place], [place], [place], [place]) Address [address] [place] [address] Care Team Providers Care Beverage Manager Name Role Phone Unavailable Primary Care Provider Unavailabl e Encounter Details Date Type Department Care Team (Late st Contact Info) Description 04/08/2018 Transcribed Document [facility] [place] [facility] [place] [address] ProviderSommer MD [address] [place] [address] Social History Tobacco Use Types Packs/Day Years Used Date Smoking Tobacco: Never Assessed Comments Unknown Sex and Gender Information Value Date Recorded Sex Assigned at Not on file Legal Sex Female 1:18 PM CDT Gender Identity Not on file Sexual Orientation Not on file documented as of this encounter Miscellaneous Notes * Cerner Conversion Note - Sommer ProviderMD - 04/08/2018 8:23 AM SYSTEM ADMINISTRATION MANAGER [place] [address] [facility] [place] [address] Patient Copy Patient Information: Name: GI CRUZ Current Date: 04/08/2018 08:23:47 : 1980 Patient Address: [address] [place] [phone] Patient Attending Physician: YASMANY NEVAREZ MD-ORT Primary Care Provider: RUSS KAN MD-[facility] Primary Care Provider Discharge Diagnosis: Comment: Follow-up Instructions: With: Address: When: YASMANY NEVAREZ [address] [facility], [address] [place] [address] Business (1) Within 1 to 2 weeks Comments: DIRECTED. BRING CD DISC TO APPT Type Location Start Finish State [facility]30 [facility] 10:[address] Spine [facility] CT 10:00 AM 10:30 AM Confirmed < [...] and water are not available, use hand warehouse order puller. ? Change your dressing as told [...] even if your condition improves. ??? Take zssv-oxy-msfdzva and prescription medicines only as told by [...] 08/31/2005 Document Revised: 10/19/2016 Document Reviewed: 08/29/2016 ElsePeerJ Interactive Patient Education ? 2017 [employer]. What You Need to Know About [...] 01/30/2010 Document Revised: 10/04/2016 Document Reviewed: 10/19/2015 [employer] Interactive Patient Education ? 2017 [employer] Myelogram, Care After Introduction Refer to [...] by your health care provider. ??? Take nhia-noe-caemxcn and prescription medicines only as told by [...] are taking, including vitamins, herbs, eyedrops, and wave-chx-ndwpzsc medicines and creams. ??? Previous problems you [...] 10/04/2004 Document Revised: 03/04/2015 Document Reviewed: 11/24/2015 [employer] Interactive Patient Education ? 2017 [employer] CIGARETTE SMOKING: The facts are clear, cigarette smoking will shorten your life. Smoking can cause many illnesses along the way. As a healthcare provider, we recommend that you stop smoking. Assistance with quitting is available by contacting 6-540-ZNXN-NOW. This is a free resource providing counseling, [...] Be sure to sign up for the [employer] patient portal, which gives you 17/09 access to your medical information ??? including these discharge instructions ??? using your computer, smartphone, or tablet. Just go to [employer] to get started. Questions? Call . [facility] would like to thank you for allowing us to assist you with your healthcare needs. NANCY Trujillo RACHEL A, (or product support sales representative) have received the above patient education materials/instructions and have verbalized understanding: Patient Signature _ Date/Time Patient Supervisor Spring Up Signature (if needed) Date/Time Clinician/Hospital Supervisor Spring Up Signature (if needed) Date/Time documented in this encounter Plan of Treatment Not on file documented as of this encounter Visit Diagnoses Not on filedocumented in this encounter
--- OUTSIDE RECORDS SUMMARY | 2024-10-09 12:06 | XMS_ITS | Clinical Summary ---
Author Organization [facility] ystem Address [address] [place] [address] Care Team Providers Care Gastroenterology Technician Name Role Phone Unavailable Primary Care [...] patient's age to complete this topic Insurance [employer] Member Subscriber Plan / Payer (Ef fective 2023-Present) Name:Gi Smith Relation to Subscriber:Self Name:Gi Smith Payer ID:[id number] (NAIC) Group ID:Not on file Type:Not on file Address: [facility] [id number] [place] [id number]
--- OUTSIDE RECORDS SUMMARY | 2024-10-09 12:06 | XMS_ITS | Encounter Summary ---
Author Organization [employer] ([place], [place], [place], [place]) Address [address] [place] [address] Care Team Providers Care Extractor Operator Helper Name Role Phone Unavailable Primary Care Provider Unavailabl e Encounter Details Date Type Department Care Team (Late st Contact Info) Description 04/08/2018 Transcribed Document [facility] [place] Family Medicine [facility] [place] [address] ProviderSommer MD [address] [place] [address] Social History Tobacco Use Types [...] Sommer Karimi MD - 04/08/2018 1:21 PM STRING CUTTER Patient Education Materials Follows: Incision Care, Adult [...] and water are not available, use hand public relations coordinator. ? Change your dressing as told by [...] even if your condition improves. ??? Take tsad-mqj-stddnva and prescription medicines only as told by [...] 08/31/2005 Document Revised: 10/19/2016 Document Reviewed: 08/29/2016 ElseOhlalapps Interactive Patient Education ? 2017 [employer] Orthopedics Myelogram, Care After Introduction Refer [...] by your health care provider. ??? Take uwzi-trq-rnjfdgq and prescription medicines only as told by [...] are taking, including vitamins, herbs, eyedrops, and ghur-jcl-ovvhuuy medicines and creams. ??? Previous problems you [...] 10/04/2004 Document Revised: 03/04/2015 Document Reviewed: 11/24/2015 [employer] Interactive Patient Education ? 2017 [employer]. Radiology What You Need to Know About [...] 01/30/2010 Document Revised: 10/04/2016 Document Reviewed: 10/19/2015 ElseOhlalapps Interactive Patient Education ? 2017 [employer] documented in this encounter Plan of Treatment Not on file documented as of this encounter Visit Diagnoses Not on filedocumented in this encounter
--- OUTSIDE RECORDS SUMMARY | 2024-10-09 12:06 | XMS_ITS | Clinical Summary ---
Author Organization Healthcare Address [address] [place] [id number] Care Team Providers Care Chainstitch Elastic Attacher Name Role Phone Eric Caraballo MD Primary Care Provider [phone] Allergies No known active allergies Medications Xarelto [...] MG tablet 11/12/2020 Active ergocalciferol 1.25 MG (57085 UT) capsule 01/11/2020 Active gabapentin (Neurontin) 400 [...] 10/26/2006 [facility]-Cervical Cancer Screening 10/26/2009 [facility]-HPV/Cotest 10/26/2009 [id number]-MBBRW-33 Vaccine (1 - 20 24-25 season) 2023 [...] to complete this topic Insurance Care Teams Chainstitch Elastic Attacher Relationship Specialty Start Date End Date Eric Caraballo MD [address] [place] [address] [place] [address] PCP - General 07/08/20
--- OUTSIDE RECORDS SUMMARY | 2024-10-09 12:06 | XMS_ITS | Encounter Summary ---
Author Organization [employer] ([place], [place], [place], [place]) Address [address] [place] [address] Care Team Providers Care All Purpose Clerk Name Role Phone Unavailable Primary Care Provider Unavailabl e Encounter Details Date Type Department Care Team (Late st Contact Info) Description 04/08/2018 Transcribed Document [facility] [place] Family Medicine [facility] [place] [address] ProviderSommer MD [address] [place] [address] Social History Tobacco Use Types Packs/Day Years Used Date Smoking Tobacco: Never Assessed Comments Unknown Sex and Gender Information Value Date Recorded Sex Assigned at Not on file Legal Sex Female 1:18 PM CDT Gender Identity Not on file Sexual Orientation Not on file documented as of this encounter Miscellaneous Notes * Cerner Conversion Note - Sommer ProviderMD - 04/08/2018 1:56 PM ART PSYCHOTHERAPIST OR THERAPIST Nursing Discharge Summary Entered On: 04/08/2018 13:57 [...] LY LIMA RN - 04/08/2018 13:56 EST documented in this encounter Plan of Treatment Not on file documented as of this encounter Visit Diagnoses Not on filedocumented in this encounter
[2024-10-09 13:14] LABS: Anion Gap 13.1 mEq/L (5-15); Blood Urea Nitrogen 13 mg/dl (7-17); Calcium 8.9 mg/dl (8.4-10.2); Carbon Dioxide 24 mmol/L (22.0-30.0); Chloride 102 mmol/L (98-107); Creatinine,Serum 0.70 mg/dl (0.52-1.04); Estimated Glomerular Filt Rate 91 ml/min (>60); GFR (African American) 110 ML/MIN (>60); Glucose 310 mg/dl (74-100); Potassium 5.1 mmoL/L (3.5-5.1); Sodium 134 mmol/L (136-145)
== END 2024-10-09 23:59 | disposition home or self-care (01) ==
LOC: LAB 11:54
PROVIDERS: PCP Nurse Practitioner Family; Visit Provider Physician Assistant
DX: I11.0 Hypertensive heart disease with heart failure (principal); I42.8 Other cardiomyopathies; I50.22 Chronic systolic (congestive) heart failure
CPT/HCPCS: 36415; 80048

== ENCOUNTER 2024-12-04 09:53 | Outpatient (CLI) | payer BC, SELFPAY ==
--- OUTSIDE RECORDS SUMMARY | 2024-10-19 08:20 | XMS_ITS | Encounter Summary ---
Author Organization [facility] Address [address] [place] [address] Care Team Providers Care Automation Software Engineer Name Role Phone Alena Reed FINE [employer]S TEACHER Primary Care Provider [phone] Reason for Referral * Consultation (Routine) - Authorized Specialty Diagnoses / Procedures Referred By Ravinder t Referred To Contact Sleep Medicine Diagnoses Morbid obesity (CMS/HCC) Other fatigue Anais Fountain APRN [address] [place] [address] Phone: tel: fax: Referral ID Status Reason Start Date Expiration Date Visits Requested Visits Authorized [id number] Authorized Specialty Services Required 10/19/2024 04/20/2026 1 1 * Consultation (Routine) - Authorized Specialty Diagnoses / Procedures Referred By Contac t Referred To Contact Diagnoses HFrEF (heart failure with reduced ejection fraction) Mei Jackson MD [address] [place] [address] Phone: tel: fax: Referral ID Status Reason Start Date Expiration Date V isits Requested Visits Authorized [id number] Authorized 10/19/2024 04/20/2026 1 1 Reason for Visit * Consultation (Routine) - Closed Specialty Diagnoses / Procedures Referred By Contac t Referred To Contact Cardiology Diagnoses Congestive heart failure, unspecified HF chronicity, unspecified heart failure type Bakari Smith, STEPHEN [address] [id number] Phone: tel: fax: Referral ID Status Reason Start Date Expiration Date V isits Requested Visits Authorized [id number] Closed Specialty Services Required 09/28/2024 03/30/2026 1 1 Encounter Details Date Type Department Care Team (Late st Contact Info) Description 10/19/2024 8:20 AM EDT Office Visit [facility] [address] [place] [address] Mei Jakcson MD [address] [place] [address] HFrEF (heart failure with reduced ejection fraction) (CMS/HCC) (Primary Dx); ICD (implantable cardioverter-defibril lator) in place; NICM (nonischemic cardiomyopathy) (CMS/HCC); Syncope and collapse; Morbid obesity (CMS/HCC); Type 2 diabetes mellitus without complication, with long-term current use of insulin; Other fatigue Social History Tobacco Use Types Packs/Day Years Used Date Smoking Tobacco: Never Smokeless Tobacco: Never Tobacco Cessation:Counseling Given: Yes Alcohol Use Standard Drinks/Week Comments No 0 (1 standard drink = 0.6 oz pur e alcohol) PHQ-2 Answer Date Recorded Patient Health Questionnaire-2 Score 0 11/16/2020 Comments No Sex and Gender Information Value Date Recorded Sex Assigned at Not on file Legal Sex Female 6:40 PM EDT Gender Identity Not on file Sexual Orientation Not on file documented as of this encounter Last Filed Vital Signs Vital Sign Reading Time Taken Comments Blood Pressure 101/72 10/19/2024 8:16 AM EDT Pulse 83 10/19/2024 8:16 AM EDT Temperature - - Respiratory Rate 16 10/19/2024 8:16 AM EDT Oxygen Saturation 95% 10/19/2024 8:16 AM EDT Inhaled Oxygen Concentration - - Weight 111 kg (245 lb 2.4 oz) 10/19/2024 8:16 AM EDT Height 160 cm (5' 3 ) 10/19/2024 8:16 AM EDT Body Mass Index 43.43 10/19/2024 8:16 AM EDT documented in this encounter Miscellaneous Notes * Patient Instructions - Sunitha Fleming RN - 10/19/2024 8:20 AM EDT Please call Sunitha at [phone] with any questions or concerns. We will get you set up for a right heart cath. We will fax your sleep medicine referral to [facility]. * Progress Notes - Anais Fountain APRN - 10/19/2024 8:20 AM EDT Images from the original note were not included. Advanced Heart Failure Consult Note Gi Smith is a 43 y.o. female who presents for consultation of HFrEF at the request of STEPHEN Gant. Past Cardiac History: Patients PMHx is significant for HFrEF s/t NICM, s/p BIV ICD with gen change 02/13/2024, H/o bilateral PE on Xarelto, gastroparesis, dysphagia, diverticulosis, and T2DM. She reports she was hospitalized for bilateral pulmonary emboli in 2010 and was diagnosed with heart failure at that time. HEAT AND FROST INSULATOR- D was initially placed 06/14/2017. She follows with cardiology at [facility]. Reports she has done well and not been hospitalized since 2010. Interval History: Today patient reports that she has felt fatigued since she was diagnosed, but it is becoming progressively worse. She also notes a constant chest pressure that worsens with activity and KELLEY that havebeen getting worse since May. Reports palpitations, lightheadedness, and a syncopal episode 3 weeks ago. She was in her closet when she started feeling sweaty and nauseous with chest pressure/SOB. She tried to walk to her bedroom to lay down and woke up on the floor. Saw her local automatic coil machine operator following this and reports her ICD interrogation was unremarkable. They felt the episode was a result of hypotension so coreg was decreased to 12.5 mg BID. Typically her BPs run 90-100s/60-70s. Weight has been stable. She does not exercise regularly. Denies any issues with swelling. She has been compliant with medications and is tolerating without adverse effects. Family history: MGF heart disease Social history: nonsmoker, no ETOH/illicit drug use. Lives with her . Review of symptoms 14 Point ROS reviewed and is otherwise negative except as per HPI. Past 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 Past 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[1] Surgical History Surgical History[2] Family History family history includes Cardiac disorder in an other family member; Diabetes in an other family member; Hypertension in an other family member; Other cancer in an other family member. Social History reports that she has never smoked. She has never used smokeless tobacco. She reports that she does not drink alcohol and does not use drugs. Medications Current Medications[3] Physical Exam Constitutional: Appearance: Normal appearance. Obese. HENT: Head: Normocephalic and atraumatic. No JVD. Cardiovascular: Rate and Rhythm: Normal rate and regular rhythm. Heart sounds: Normal heart sounds. Pulmonary: Effort: Pulmonary effort is normal. Breath sounds: Normal breath sounds. Abdominal: Palpations: Abdomen is soft. Skin: General: Skin is warm and dry. Neurological: General: No focal deficit present. Mental Status: Alert and oriented to person, place, and time. Psychiatric: Mood and Affect: Mood normal. Behavior: Behavior normal. Extremities: No edema Visit Vitals BP 101/72 Pulse 83 Ht 1.6 m (5' 3 ) Wt 111 kg (245 lb 2.4 oz) SpO2 95% BMI 43.43 kg/m?? Imaging TTE 10/2023: EF 30%, LVIDD 5.87 cm, G1DD, small apical aneurysm, mod-severe global hypokinesis, no significant VHD Catheterizations: [facility] 09/2021: normal coronaries Labs Lab Results Component Value Date HGB 13.2 11/16/2020 HCT 41.5 11/16/2020 PLT 323 11/16/2020 ALT 38 (H) 11/16/2020 AST 25 11/16/2020 NA 136 11/16/2020 K 4.6 11/16/2020 CREATININE 0.81 11/16/2020 BUN 12 11/16/2020 CO2 29 11/16/2020 Labs 10/09/2024: NA 134, K 5.1, BUN 13, Cr 0.70 Assessment and Plan HFrEF s/t NICM -NYHA class III -appears compensated on exam -S/p BIV ICD, gen change 02/13/2024 -EF 30% per echo 10/2023 -GDMT: coreg 12.5 mg BID, Entresto 49/51 mg BID, spironolactone 25 mg daily, bumex 1 mg daily for volume control -Did not tolerate SGLT2i d/t dehydration -Will admit for RHC and possible evaluation for LVAD - not a candidate for transplant at this time d/t BMI H/o PE -anticoagulated on Xarelto -denies s/s of bleeding T2DM -follows with endocrinology Gastroparesis / Dysphagia / Diverticulosis -follows with GI Fatigue -Sleep referral placed - she would like to complete at [facility] Obesity -BMI 43 today -Weight loss encouraged through diet and exercise A total time of 60 minutes was spent by MD and RAJESH addressing the current illness, reviewing records (prior imaging, lab work, etc), and formulating a plan. The patient is agreeable to the plan and all pertinent questions were answered. Patient was seen and assessed in collaboration with Dr. Jackson who agrees with the above plan of care. Follow up in 6 weeks. Anais Fountain, FINE ARTS TEACHER 10/19/24 [1] Past 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: Diagnosis Date Diabetes type 2, controlled ([facility]) Hypothyroidism Lupus Neuropathy Rheumatoid arthritis (CMS/HCC) [2] Past Surgical History: Procedure Laterality Date APPENDECTOMY N/A appendectomy from [facility] CARDIAC CATHETERIZATION N/A cardiac catheterization from [facility] CARDIAC PACEMAKER PLACEMENT N/A Pacemaker Placement from [facility] CARPAL TUNNEL RELEASE N/A Carpal tunnel surgery from [facility] CYST REMOVAL ESOPHAGOGASTRODUODENOSCOPY HYSTERECTOMY N/A hysterectomy from [facility] TONSILLECTOMY [3] Current Outpatient Medications Medication Sig Dispense Refill baclofen (Lioresal) 20 MG tablet Take 1 tablet by mouth 3 times a day. bumetanide (Bumex) 1 MG tablet Take 1 tablet by mouth daily. busPIRone (Buspar) 10 MG tablet carvedilol (Coreg) 25 MG tablet Entresto 49-51 MG tablet ergocalciferol 1.25 MG (84644 UT) capsule gabapentin (Neurontin) 400 MG capsule GaviLyte-G 236 g solution hydroxychloroquine (Plaquenil) 200 MG tablet hydrOXYzine HCl (Atarax) 25 MG tablet Januvia 100 MG tablet levothyroxine (Synthroid, Levoxyl) 25 MCG tablet metFORMIN (Glucophage) 500 MG tablet methocarbamol (Robaxin) 500 MG tablet Take 1 tablet by mouth 3 times a day as needed for muscle spasms. naproxen (EC Naprosyn) 375 MG EC tablet Take 1 tablet by mouth daily. Do not crush, chew, or split. omeprazole (PriLOSEC) [address] capsule ondansetron (Zofran) 4 MG tablet simvastatin (Zocor) 40 MG tablet spironolactone (Aldactone) 25 MG tablet traMADol (Ultram) 50 MG tablet Xarelto 20 MG tablet No current facility-administered medications for this visit. documented in this encounter Plan of Treatment Upcoming Encounters Date Type Department Care Team (Late st Contact Info) Description 12/07/2024 8:20 AM EDT Office Visit [facility] [place] [address] [facility] [place] [address] Mei Jackson MD [address] [place] [address] Scheduled Referrals Name Type Priority Associated Diagnoses Order Schedule Follow Up Cardiology Outpatient Referral Routine HFrEF (heart failure with reduced ejection fraction) ([facility]) Expected: 11/30/2024, Expires: 04/21/2026 Ambulatory referral to Adult Sleep Medicine Outpatient Referral Routine Morbid obesity ([facility]) Other fatigue 1 Occurrences starting 10/19/2024 until 04/22/2026 documented as of this encounter Procedures Procedure Name Priority Date/Time Associated Diagnosis Comments ECG ADULT Routine 10/19/2024 8:42 AM EDT documented in this encounter Results * ECG Adult (Now - Performed in your clinic) (10/19/2024 8:42 AM EDT) EKG DIAGNOSIS CLASS Abnormal MUSE ECG Ventricular Rate 82 BPM MUSE ECG Atrial Rate 82 BPM MUSE ECG MD Interval 142 ms MUSE ECG QRSD Interval 140 ms MUSE ECG QT Interval 432 ms MUSE ECG QTC Interval 504 ms MUSE ECG P [place] 75 degrees MUSE ECG R [place] 143 degrees MUSE ECG T Wave [place] 98 degrees MUSE ECG Diagnosis Atrial-sensed ventricular-p aced rhythm MUSE ECG Diagnosis Abnormal ECG MUSE ECG Diagnosis MUSE ECG Diagnosis Confirmed by Kenya Anton ([id number]) on 10/20/2024 4:06:01 PM MUSE ECG 10/19/2024 8:42 AM EDT 10/20/2024 4:06 PM EDT us Mei Jackson MD ECG ORDERABLES Final Resu lt MUSE ECG documented in this encounter Visit Diagnoses Diagnosis HFrEF (heart failure with reduced ejection fraction)- Primary ICD (implantable cardioverter-defibrillator) in place NICM (nonischemic cardiomyopathy) (CMS/HCC) Syncope and collapse Morbid obesity (CMS/HCC) Morbid obesity Type 2 diabetes mellitus without complication, with long-term current use of insulin Other fatigue documented in this encounter Additional Health Concerns Assessment Noted Time A fall risk assessment has been complete d for the patient 10/19/2024 8:34 AM EDT A Body Mass Index follow-up plan has been documented for the patient 10/19/2024 10:29 AM EDT documented as of this encounter Care Teams Automation Software Engineer Relationship Specialty Start Date End Date Alena Reed APRN [address] [place] [address] PCP - General 10/19/24 documented as of this encounter
--- OUTSIDE RECORDS SUMMARY | 2024-11-11 09:38 | XMS_ITS | Encounter Summary ---
Author Organization Healthcare Address [address] [id number] Care Team Providers Care Shirt Sorter Name Role Phone Alena Reed RAZA Primary Care Provider +1- [phone] Reason for Visit * Auth/Cert (Routine) Specialty Diagnoses / Procedures Referred By Ravinder cruz Referred To Contact Diagnoses HFrEF (heart failure with reduced ejection fraction) HFrEF (heart failure with reduced ejection fraction) (CMS/HCC) [I50.20] Procedures IN RIGHT HEART CATH O2 SATURATION & CARDIAC OUTPUT Right heart catheterization Mei Jackson MD [address] [place] [address] Phone: tel: fax: Cardiac Textile Pin Worker [address] [place] [address] Phone: tel: Referral ID Status Reason Start Date Expiration Date Visits Re quested Visits Authorized [id number] 1 1 Encounter Details Date Type Department Care Team (Latest Contact Info) Description 11/11/2024 9:38 AM EDT - 11/12/2024 2:00 AM EDT Hospital Encounter Cardiac Textile Pin Worker [address] [place] [address] Mei Jackson MD [address] [place] [address] HFrEF (heart failure with reduced [...] Behavior (Lifetime) No 9:58 AM EDT Altaf Garcia RN documented as of this encounter Medications [...] Entresto 49-51 MG tablet 11/12/2020 gabapentin (Neurontin) 400 MG capsule 10/10/2020 GaviLyte-G 236 g solution 07/06/2020 hydrOXYzine HCl [...] Take 1/2 tablet every evening per patient SITagliptin Base-metFORMIN HCl (Zituvimet) 50-500 MG tablet Take by mouth. spironolactone (Aldactone) 25 MG tablet 11/08/2020 traMADol (Ultram) 50 MG tablet 09/09/2020 triamcinolone (Kenalog) 0.1 % cream Apply 1 Application topically 2 times a day. Xarelto 20 MG tablet 11/14/2020 documented as of this encounter Miscellaneous Notes * Nursing Note - Altaf Garcia RN - 11/11/2024 12:43 PM EDT Went over discharge info with patient and verbalized understanding. GCS 15. Vitals stable. Site is soft, clean,dry, and intact. Will remove IV once dressed. * [facility] - Altaf Garcia RN - 11/11/2024 12:20 PM EDT Images from the original note were not included. [id number] Bleeding or Hematoma After Cardiac Catheterization You [...] on the site, and call 911 or havemeone take you to the emergency room. In [...] provider. Last Reviewed Date: 2024 00:00:00 ?? [id number] [employer]. All rights reserved. This information is not intended as a substitute for professional medical care. Always follow your healthcare professional's instructions. * Neal [facility] - Altaf Garcia RN - 11/11/2024 12:20 PM EDT Images from the original note were not included. [id number] Right Heart Catheterization: About This Test What [...] often in a cardiac catheterization laboratory ( corn lab technician ). You lie on a table under [...] this instruction, always ask your healthcare professional. [employer] disclaims any warranty or liability for your use of this information. ?? [id number] [employer]. * H&P - Mei Jackson MD - [...] diagnosed with heart failure at that time. 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 She follows with cardiology at [facility]. Reports she has done well [...] HFrEF (heart failure with reduced ejection fraction) ([facility]) Plan: Proceed with RHC +/- [...] HFrEF (heart failure with reduced ejection fraction) (CMS/HCC). Planned Procedure: RHC Relevant past medical history: [...] been discussed with the patient and/or their sales representative wire rope. All questions answered and they agree to proceed. documented in this encounter Plan of Treatment Upcoming Encounters Date Type Department Care Team (Late st Contact Info) Description 12/07/2024 8:20 AM EDT Office Visit [facility] [place] [address] [facility] [place] [address] Mei Jackson MD [address] [place] [address] documented as of this encounter Procedures Procedure Name Priority Date/Time Associated Diagnosis Comments POCT CO-OXIMETRY MIXED VENOUS UNSOLICITED RESULTS Routine 11/11/2024 12:00 PM EDT RIGHT HEART CATHETERIZATION Routine 11/11/2024 11:57 AM EDT HFrEF (heart failure with reduced ejection fraction) ([facility]) documented in this encounter Results * (ABNORMAL) POCT Co-Oximetry Mixed Venous (11/11/2024 12:00 PM EDT) POCT Oxyhemoglobin, Mixed Venous 64.9 % 11/11/2024 11:57 AM EDT [facility]ALTH[facility]ARE [facility] Salon Designer ID Vittitow, Makenna 11/11/2024 11:57 AM EDT [facility]ALTHCARE LAB Device ID [id number] 11/11/2024 11:[address] [facility] POCT Sample Site PA 11/11/2024 11:57 AM EDT [facility]ALTH[facility]ARE [facility] POCT Total Hemoglobin 10.8(L) 11.2 - 15.7 g/dL 11/11/2024 11:57 AM EDT HEALTHCARE LAB 11/11/2024 12:0 0 PM EDT 11/11/2024 11:57 AM EDT Mei Jackson MD LAB POINT OF CARE TEST DOCKED DEVICE UNSOLICITED RESULTS Final Result [facility] [address] [place] [address] * RIGHT HEART CATHETERIZATION (11/11/2024 11:57 AM [...] catheterization Access: Right Jugular vein 8 Fr [place] Sheath Procedure: After obtaining consent, the patient [...] was inserted through the needle, an 8Fr [place] sheath was inserted over the wire, subsequently blood was aspirated and the sheath was flushed. A 7.5 Turkish [place]- Angela catheter was passed through the [place] sheath into the RA, RV and PA chambers along with obtaining measured pressures and PCWP. A small blood sample was obtained from the PA to calculate assumed Alexander cardiac output and index in addition to thermodilution technique. Ultimately, the [place] sheath was withdrawn while the patient was [...] Thermo CO: 6.8 L/min CI: 3.1 L/min/m2 LICENSING COURT MAGISTRATE: 0.42 W Resistance Thermo PVR: 1.6 SANCHEZ [...] documented as of this encounter Care Teams Shirt Sorter Relationship Specialty Start Date End Date Alena Reed APRN [address] [place] [address] PCP - General 10/19/24 documented as of this encounter
--- OUTSIDE RECORDS SUMMARY | 2024-11-11 11:45 | XMS_ITS | Encounter Summary ---
Author Organization Healthcare Address [address] [id number] Care Team Providers Care Scrip Clerk Name Role Phone Alena Reed RAZA Primary Care Provider +1- [phone] Reason for Visit * Auth/Cert (Routine) Specialty Diagnoses / Procedures Referred By Ravinder cruz Referred To Contact Diagnoses HFrEF (heart failure with reduced ejection fraction) HFrEF (heart failure with reduced ejection fraction) (CMS/HCC) [I50.20] Procedures [place] RIGHT HEART CATH O2 SATURATION & CARDIAC OUTPUT Right heart catheterization Mei Jackson MD [address] [place] [address] Phone: tel: fax: Cardiac Aix Administrator [address] [place] [address] Phone: tel: Referral ID Status Reason Start Date Expiration Date Visits Re quested Visits Authorized [id number] 1 1 Encounter Details Date Type Department Care Team (Late st Contact Info) Description 11/11/2024 11:45 AM EDT - 11/11/2024 1:00 PM EDT Surgery Cardiac Aix Administrator [address] [place] [address] Mei Jackson MD [address] [place] [address] Right heart catheterization [20148 (CPT )] Surgery Details Date/Time Status Location OR Service Patient Class Case Class Case Type Trauma Case? 11/11/2024 11:45 AM Posted [facility] STORE FACILITY TECHNICIAN CH STORE FACILITY TECHNICIAN 01 Cardiovascular [facility] Outpatient Surgery E-Elect laurie Panel 1 [...] Will remove IV once dressed. * Neal [facility] - Altaf Garcia RN - 11/11/2024 12:20 PM EDT Images from the original note were not included. [id number] Bleeding or Hematoma After Cardiac Catheterization You [...] provider. Last Reviewed Date: 2024 00:00:00 ?? [id number] [employer]. All rights reserved. This information is not intended as a substitute for professional medical care. Always follow your healthcare professional's instructions. * [facility] - Altaf [facility] RN - 11/11/2024 12:20 PM EDT Images from the original note were not included. [id number] Right Heart Catheterization: About This Test What [...] often in a cardiac catheterization laboratory ( laborer poultry hatchery ). You lie on a table under [...] this instruction, always ask your healthcare professional. [employer] disclaims any warranty or liability for your use of this information. ?? [id number] [employer]™. * H&P - Mei Jackson MD - [...] diagnosed with heart failure at that time. 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 She follows with cardiology at [facility]. Reports she has done well and [...] (heart failure with reduced ejection fraction) (CMS/HCC) Plan: Proceed with RHC +/- admission for [...] been discussed with the patient and/or their office services representative. All questions answered and they agree to proceed. documented in this encounter Plan of Treatment Upcoming Encounters Date Type Department Care Team (Late st Contact Info) Description 12/07/2024 8:20 AM EDT Office Visit [facility] [place] [address] [place] [address] Mei Jackson MD [address] [place] [address] documented as of this encounter Procedures Procedure Name Priority Date/Time Associated Diagnosis Comments POCT CO-OXIMETRY MIXED VENOUS UNSOLICITED RESULTS Routine 11/11/2024 12:00 PM EDT RIGHT HEART CATHETERIZATION Routine 11/11/2024 11:57 AM EDT HFrEF (heart failure with reduced ejection fraction) (CMS/[facility]) documented in this encounter Results * (ABNORMAL) POCT Co-Oximetry Mixed Venous (11/11/2024 12:00 PM EDT) [facility] POCT Oxyhemoglobin, Mixed Venous 64.9 % 11/11/2024 11:57 AM EDT [facility] Roustabout Pusher ID Makenna Juarez 11/11/2024 11:57 AM EDT [facility] Device ID [id number] 11/11/2024 11:57 AM EDT [facility] POCT Sample Site PA 11/11/2024 11:57 AM EDT [facility] POCT Total Hemoglobin 10.8(L) 11.2 - 15.7 g/dL 11/11/2024 11:57 AM EDT [facility] 11/11/2024 12:0 0 PM EDT 11/11/2024 11:57 AM EDT us Mei Jackson MD LAB POINT OF CARE TEST DOCKED DEVICE UNSOLICITED RESULTS Final Result [facility] [address] [place] [address] * RIGHT HEART CATHETERIZATION (11/11/2024 11:57 AM [...] catheterization Access: Right Jugular vein 8 Fr [place] Sheath Procedure: After obtaining consent, the patient [...] was inserted through the needle, an 8Fr [place] sheath was inserted over the wire, subsequently blood was aspirated and the sheath was flushed. A 7.5 Japanese [place]- Angela catheter was passed through the [place] sheath into the RA, RV and PA chambers along with obtaining measured pressures and PCWP. A small blood sample was obtained from the PA to calculate assumed Alexander cardiac output and index in addition to thermodilution technique. Ultimately, the [place] sheath was withdrawn while the patient was [...] Thermo CO: 6.8 L/min CI: 3.1 L/min/m2 LEAD TECHNICAL WRITER: 0.42 W Resistance Thermo PVR: 1.6 SANCHEZ [...] documented as of this encounter Care Teams Scrip Clerk Relationship Specialty Start Date End Date Alena Reed APRN [address] [place] [address] PCP - General 10/19/24 documented as of this encounter
--- OUTSIDE RECORDS SUMMARY | 2024-12-04 09:55 | XMS_ITS | Encounter Summary ---
Author Organization [employer] ([place], [place], [place], [place]) Address [address] [place] [address] Care Team Providers Care Steam Roller Operator Name Role Phone Unavailable Primary Care Provider Unavailabl e Encounter Details Date Type Department Care Team (Late st Contact Info) Description 04/08/[address] [facility] Family Medicine [address] [place] [address] ProviderSommer MD [address] [place] [id number] Social History Tobacco Use Types Packs/Day Years Used Date Smoking Tobacco: Never Assessed Comments Unknown Sex and Gender Information Value Date Recorded Sex Assigned at Not on file Legal Sex Female 1:18 PM CDT Gender Identity Not on file Sexual Orientation Not on file documented as of this encounter Miscellaneous Notes * Cerner Conversion Note - Sommer ProviderMD - 04/08/2018 11:14 AM HOISTING LABORER Patient: GI CRUZ Age: 37 years Sex: [...]
--- OUTSIDE RECORDS SUMMARY | 2024-12-04 09:55 | XMS_ITS | Encounter Summary ---
Author Organization [facility] Address [address] [id number] Care Team Providers Care Fibre Optics Jointer Name Role Phone Eric Caraballo MD Primary Care Provider [phone] Alena Reed APRN Primary Care Provider [phone]- [phone] Encounter Details Date Type Department Care Team (Late st Contact Info) Description 10/15/2024 Telephone [facility] [place] [address] [place] [address] January Lewis [address] [id number] Social History Tobacco Use Types Packs/Day Years [...] as of this encounter Miscellaneous Notes * Telephone Encounter - January Lewis - 10/15/2024 2:06 PM EDT Patient Name: Gi Smith :1980 Date:10/15/2024 Affiliate site: [facility] Referring Physician: Bakari Smith Education/ Information provided: This Nurse Liaison spoke with Gi Smith prior to an appointment on 10/19/2024. Explained nurse liaison services offered through [facility]. Discussed appointment necessity, and subspecialty clinic the pt will be seeing. Patient verbalizes understanding. Patient denied any barriers to arriving to clinic visit. All questions answered. Provided patient with liaison contact information and encouraged patient to call with any questions, concerns or assistance needs. Will follow up with patient after appointment. January Jones [facility] Nurse Liaison [phone] documented in this encounter Plan of Treatment Upcoming Encounters Date Type Department Care Team (Late st Contact Info) Description 12/07/2024 8:20 AM EDT Office Visit [facility] [place] [address] [place] [address] Mei Jackson MD [address] [place] [address] documented as of this encounter Visit Diagnoses Not on filedocumented in this encounter Additional Health Concerns Assessment Noted Time A fall risk assessment has been complete d for the patient 11/16/2020 8:30 AM EDT documented as of this encounter Care Teams Fibre Optics Jointer Relationship Specialty Start Date End Date Eric Caraballo MD [address] [place] [address] PCP - General 07/08/20 10/18/24 Alena Reed APRN [address] [place] [address] PCP - General 10/19/24 documented as of this encounter
--- OUTSIDE RECORDS SUMMARY | 2024-12-04 09:55 | XMS_ITS | Encounter Summary ---
Author Organization [employer] ([place], [place], [place], [place]) Address [address] [place] [address] Care Team Providers Care Applications Sales Representative Name Role Phone Unavailable Primary Care Provider Unavailabl e Encounter Details Date Type Department Care Team (Late st Contact Info) Description 04/08/2018 Transcribed Document [facility] [place] [address] ProviderSommer MD [address] [place] [address] Social History Tobacco Use Types [...] Sommer Karimi MD - 04/08/2018 1:21 PM CAR WORKER Patient Education Materials Follows: Incision Care, Adult [...] water are not available, use hand senior ui software engineer. ? Change your dressing as told [...] even if your condition improves. ??? Take atrh-ida-ympiqgy and prescription medicines only as told by [...] 08/31/2005 Document Revised: 10/19/2016 Document Reviewed: 08/29/2016 [employer] Interactive Patient Education ? 2017 [employer] Orthopedics Myelogram, Care After Introduction Refer [...] by your health care provider. ??? Take kcgj-wwk-nrlvllw and prescription medicines only as told by [...] are taking, including vitamins, herbs, eyedrops, and kpvt-zcx-bkhpsav medicines and creams. ??? Previous problems you [...] 10/04/2004 Document Revised: 03/04/2015 Document Reviewed: 11/24/2015 [employer] Interactive Patient Education ? 2017 [employer]. Radiology What You Need to Know About [...] 01/30/2010 Document Revised: 10/04/2016 Document Reviewed: 10/19/2015 [employer] Interactive Patient Education ? 2017 [employer] Electronically signed by Selena Kim Conversion Bioinformatics Research Technician Cerner at 06/14/2022 2:59 PM CDT documented in this encounter Plan of Treatment Not on file documented as of this encounter Visit Diagnoses Not on filedocumented in this encounter
--- OUTSIDE RECORDS SUMMARY | 2024-12-04 09:56 | XMS_ITS | Encounter Summary ---
Author Organization [facility] ystem Address [address] [place] [address] Care Team Providers Care Armature Tester Name Role Phone Unavailable Primary Care Provider Unavailabl e Encounter Details Date Type Department Care Team (Late st Contact Info) Description 03/19/[address] [facility] HISTORICAL CONV [address] [place] [address] Interface, See Report Social History [...] See Report - 03/19/2013 6:19 AM EST [place] [id number] DISCHARGE SUMMARY PATIENT NAME: GI CRUZ [address] [facility] NO: [id number] DATE OF : 1980 DATE OF ADMISSION: [...] and was seen by Dr. Sun in [place] who put her on oral contraceptive pills. The patient continued to have irregular menses and was later seen in [place] where a transvaginal ultrasound was performed showing [...] to do in Dr. Caraballo' office in [place]. Dr. Eric Caraballo in [place], [place] is her family medicine doctor who [...] physician, which is Dr. Eric Caraballo in [place], [place], who has previously been following her PT and INR and making adjustments with her Coumadin. The patient is aware that she will need to follow-up with him in one week. 3. The patient will have her PT and INR drawn on 03/23/2013. Syl Carlin, OB Resident* Dictating for: Jose Jc M.D. AB/HE/margie Voice Rec. ID #[id number] Voice Original ID #[id number] Doc ID #[id number] Rev. #0 cc: Jose Jc M.D.* Eric Caraballo M.D.* DO NOT TEXT EDIT THIS LINE :CDS:[id number]: Authenticated by JOSE JC MD On 04/27/2013 09:58:46 AM Authenticated by JOSE JC MD On 04/28/2013 01:24:21 PM documented in this encounter OR Notes * Op Note - Interface, See Report - 03/19/2013 6:19 AM EST [place] [id number] OPERATIVE REPORT PATIENT NAME: GI CRUZ [address] [facility] NO: [id number] DATE OF : 1980 DATE OF OPERATION: [...] She then went to Dr. Sun in [place] who put her on oral contraceptive pills. Her menses were still irregular. The patient then was seen in [place] for similar complaints. The patient was started [...] with definitive therapy. SURGEON: Jose Jc M.D. VASCULAR SURGEON: Syl Carlin M.D., Resident ANESTHESIA: General endotracheal. [...] transitioned to dorsal lith[facility]. The patient was then prepped [...] was made hemostatic with 4-0 Vicryl in jrthld-hp-eteer fashion X2. Also, there was a small [...] Carlin M.D., Resident ED/AB/rxmjh Voice Rec. ID #[id number] Original Voice Rec. ID #[id number] Doc ID #[id number] Revision Count: 0 cc: Jose Jc M.D.* <start header> [place] [id number] OPERATIVE REPORT PATIENT NAME: GI CRUZ 1 [facility] NO: [id number] DATE OF : 1980 <end header> DO NOT TEXT EDIT THIS LINE :BAIT DIGGER:[id number]: Authenticated by JOSE JC MD On 03/19/2013 [...] EST) PTT 29 24 - 31 Seconds [facility] Comment: US by IF @ 03/20/2013 09:23 PTT = The equivalent PTT values for the therapeutic range of heparin levels at 0.3 to 0.5 U/ml are 45 to 60 seconds. PTT = The equivalent PTT values for the therapeutic range of heparin levels at 0.3 to 0.5 U/ml are 45 to 60 seconds. Blood specimen (specimen) 03/20/2013 8:51 AM EST Narrative [facility] - 03/20/2013 9:23 AM EST Specimen Type: Blood us Jose Jc MD LAB BLOOD ORDERABLES Final Result [facility] [address] [place] [address], * Protime-INR (03/20/2013 8:51 AM EST) Protime 11.5 9.6 - 11.5 Seconds [facility] INR 1.07 [facility] Comment: US by IF @ 03/20/2013 09:23 Therapeutic Ranges for INR: 2.0-3.0 (PT 20-30) 2.5-3.5 (PT 25-34) Blood specimen (specimen) 03/20/2013 8:51 AM EST Narrative [facility] - 03/20/2013 9:23 AM EST Specimen Type: Blood Jose Jc MD LAB BLOOD ORDERABLES Final Result [facility] [address] [place] [address], * (ABNORMAL) Basic metabolic panel (03/20/2013 6:00 AM EST) Glucose 134(H) 70 - 100 mg/dL [facility] BUN 10 6 - 20 mg/dL [facility] Creatinine 0.8 0.6 - 1.3 mg/dL [facility] Sodium 136 136 - 145 mmol/L [facility] Potassium 3.6 3.4 - 5.4 mmol/L [facility] Chloride 100 98 - 107 mmol/L [facility] CO2 26 20 - 31 mmol/L [facility] Calcium 9.2 8.7 - 10.4 mg/dL [facility] Est GFR by Clearance 88 ml/min/1.7 32 [facility] Comment: DF by IF @ 03/20/2013 06:43 National Kidney Foundation Guidelines Stage Description GFR 1 Normal or High 90+ 2 Mild decrease 60-89 3 Moderate decrease 30-59 4 Severe decrease 15-29 5 Kidney failure <15 Anion Gap 9 3 - 11 mmol/L [facility] Blood specimen (specimen) 03/20/2013 6:00 AM EST Narrative [facility] - 03/20/2013 7:02 AM EST Specimen Type: Blood us Syl C Carlin DO LAB BLOOD ORDERABLES Final R esult Performing Organization Address [facility] [place] [address], * (ABNORMAL) CBC (No diff) (03/20/2013 6:00 AM EST) WBC 16.92(H) 3.50 - 10.80 K/[facility] RBC 4.28 3.89 - 5.14 /[facility] Hemoglobin 11.6 11.5 - 15.5 g/dL [facility] Hematocrit 35.4 34.5 - 44.0 % [facility] MCV 82.7 80.0 - 99.0 fL [facility] MCH 27.1 27.0 - 31.0 pg [facility] MCHC 32.8 32.0 - 36.0 g/dL [facility] RDW-CV 14.1 11.3 - 14.5 % [facility] Platelets 332 150 - 450 K/[facility] Blood specimen (specimen) 03/20/2013 6:00 AM EST [facility] - 03/20/2013 6:22 AM EST Specimen Type: Blood Syl Carlin DO LAB BLOOD ORDERABLES Final R esult Performing Organization Address City/[facility] Co de Phone Number [facility] [address] [place] [address], * Converted Surgical Pathology (03/19/2013 6:19 AM EST) 03/19/2013 6:19 AM EST [facility] - 03/20/2013 12:46 [place] [address] SURGICAL PATHOLOGY REPORT Patient Name: GI CRUZ MR#: [id number] : 1980 Gender: F Ordering Physician: JOSE [...] nodule measuring 2.3 cm in greatest dimension. Operations Support Specialist sections are submitted. Summary of sections: A - frozen section residue; B - anterior and posterior cervix; C-D - anterior endomyometrium; E-F - posterior endomyometrium; G - intramural nodule. M/sk Microscopic Description Sections show secretory endometrium with intraluminal secretions. 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 No other abnormalities are noted. JFJ/sk Previous Pertinent History [id number], 12/15/12: ENDOMETRIUM, BIOPSY: Negative for endometrial functionalis. Abundant endocervical type epithelium. (FLP) [id number],12/08/12: PAP SMEAR: Negative for intraepithelial lesion or malignancy. (PCL) Procedures/Addenda us See Report Interface PATHOLOGY/CYTOLOGY ORDERABL ES Final Result Performing Organization Address [facility]/[place] [address], * SCANNED EKG (03/19/2013) [facility] ECG ORDERABLES Final Result * (ABNORMAL) APTT (03/18/2013 10:40 AM EST) PTT 37(H) 24 - 31 Seconds [facility] Comment: US by IF @ 03/18/2013 11:21 PTT = The equivalent PTT values for the therapeutic range of heparin levels at 0.3 to 0.5 U/ml are 45 to 60 seconds. PTT = The equivalent PTT values for the therapeutic range of heparin levels at 0.3 to 0.5 U/ml are 45 to 60 seconds. Blood specimen (specimen) 03/18/2013 10:40 AM EST Narrative [facility] - 03/18/2013 11:21 AM EST Specimen Type: Blood Jose Jc MD LAB BLOOD ORDERABLES Final Result Performing Organization Address [facility] [place] [address], * (ABNORMAL) Protime-INR (03/18/2013 10:40 AM EST) Protime 12.5(H) 9.6 - 11.5 Seconds [facility] INR 1.16 [facility] Comment: US by IF @ 03/18/2013 11:21 Therapeutic Ranges for INR: 2.0-3.0 (PT 20-30) 2.5-3.5 (PT 25-34) Blood specimen (specimen) 03/18/2013 10:40 AM EST Narrative [facility] - 03/18/2013 11:21 AM EST Specimen Type: Blood Jose Jc MD LAB BLOOD ORDERABLES Final Result [facility] [address] [place] [address], * hCG, quantitative, (03/18/2013 10:40 AM EST) HCG Quantitative <5.0 mIU/mL [facility] Comment: DF by IF @ 03/18/2013 11:23 HCG Expected Values: Non females less than 5 mIU/mL Males less than 5 mIU/mL 0-1 Weeks Gestation 5-50 1-2 Weeks Gestation 50-500 2-3 Weeks Gestation 100-5000 3-4 Weeks Gestation [phone] 4-5 Weeks Gestation [phone] 5-6 Weeks Gestation [id number] 6-8 Weeks Gestation [id number] 2-3 Months Gestation [id number] Note: If a value is between 5-25 mIU/mL recommend repeat testing and clinical correlation. Blood specimen (specimen) 03/18/2013 10:40 AM EST [facility] - 03/18/2013 11:23 AM EST Specimen Type: Blood Jose Jc MD LAB BLOOD ORDERABLES Final Result Performing Organization Address [facility] Co de Phone Number [facility] [address] [place] [address], * Type and screen (03/18/2013 10:40 AM EST) ABORh O Rh Positive [facility] Antibody Screen Negative [facility] Blood specimen (specimen) 03/18/2013 10:40 AM EST [facility] - 03/18/2013 11:49 AM EST Specimen Type: Blood Jose Jc MD BLOOD BANK TEST ORDERABLES Final Result Performing Organization Address City/[facility]/ZIP Co de Phone Number [facility] [address] [place] [address], * (ABNORMAL) Comprehensive metabolic panel (03/18/2013 10:40 AM EST) Glucose 86 70 - 100 mg/dL [facility] BUN 11 6 - 20 mg/dL [facility] Creatinine 0.6 0.6 - 1.3 mg/dL [facility] Sodium 139 136 - 145 mmol/L [facility] Potassium 3.9 3.4 - 5.4 mmol/L [facility] Chloride 102 98 - 107 mmol/L [facility] CO2 28 20 - 31 mmol/L [facility] Calcium 9.8 8.7 - 10.4 mg/dL [facility] Alkaline Phosphatase 126(H) 25 - 100 Units/L [facility] AST (SGOT) 28 8 - 33 Units/L [facility] ALT (SGPT) 38 7 - 40 Units/L [facility] Total Bilirubin 0.7 0.3 - 1.2 mg/dL [facility] Total Protein 8.4(H) 6.4 - 8.3 g/dL [facility] Albumin 4.6 3.4 - 4.8 g/dL [facility] eGFR 126 ml/min/1.7 32 [facility] Comment: DF by IF @ 03/18/2013 11:23 National Kidney Foundation Guidelines Stage Description GFR 1 Normal or High 90+ 2 Mild decrease 60-89 3 Moderate decrease 30-59 4 Severe decrease 15-29 5 Kidney failure <15 Anion Gap 9 3 - 11 mmol/L [facility] Blood specimen (specimen) 03/18/2013 10:40 AM EST Narrative [facility] - 03/18/2013 11:23 AM EST Specimen Type: Blood us Jose Jc MD LAB BLOOD ORDERABLES Final Result [facility] [address] [place] [address], * (ABNORMAL) CBC and Differential (03/18/2013 10:40 AM EST) WBC 10.75 3.50 - 10.80 K/[facility] RBC 5.03 3.89 - 5.14 M/[facility] Hemoglobin 13.4 11.5 - 15.5 g/dL [facility] Hematocrit 41.2 34.5 - 44.0 % [facility] MCV 81.9 80.0 - 99.0 fL [facility] MCH 26.6(L) 27.0 - 31.0 pg [facility] MCHC 32.5 32.0 - 36.0 g/dL [facility] RDW-CV 13.7 11.3 - 14.5 % [facility] Platelets 372 150 - 450 K/[facility] Neutrophils Absolute 7.20 1.50 - 8.30 [facility] Lymphocytes Absolute 2.43 0.60 - 4.80 [facility] Monocytes Absolute 0.76 0.00 - 1.00 [facility] Eosinophils Absolute 0.29 0.10 - 0.30 [facility] Basophils Absolute 0.03 0.00 - 0.20 [facility] Neutrophil Rel % 66.9 41.0 - 71.0 % [facility] Lymphocyte Rel % 22.6(L) 24.0 - 44.0 % [facility] Monocyte Rel % 7.1 0.0 - 12.0 % [facility] Eosinophil Rel % 2.7 0.0 - 3.0 % [facility] Basophil Rel % 0.3 0.0 - 1.0 % [facility] Immature Granulocyte Rel % 0.4 0.0 - 0.6 % [facility] Blood specimen (specimen) 03/18/2013 10:40 AM EST Narrative [facility] - 03/18/2013 11:06 AM EST Specimen Type: Blood us Jose Jc MD LAB BLOOD ORDERABLES Final Result Performing Organization Address City/State/[facility] Co de Phone Number [facility] [place] [address], documented in this encounter Visit Diagnoses Not on filedocumented in this encounter
--- OUTSIDE RECORDS SUMMARY | 2024-12-04 09:56 | XMS_ITS | Encounter Summary ---
Author Organization [employer] ([place], [place], [place], [place]) Address [address] [place] [address] Care Team Providers Care Fighting Vehicle Systems Maintainer Name Role Phone Unavailable Primary Care Provider Unavailabl e Encounter Details Date Type Department Care Team (Late st Contact Info) Description 04/08/2018 Transcribed Document [facility] Family Medicine [facility] [place] [address] ProviderSommer MD [address] [place] [address] Social History Tobacco Use Types Packs/Day Years Used Date Smoking Tobacco: Never Assessed Comments Unknown Sex and Gender Information Value Date Recorded Sex Assigned at Not on file Legal Sex Female 1:18 PM CDT Gender Identity Not on file Sexual Orientation Not on file documented as of this encounter Miscellaneous Notes * Cerner Conversion Note - Sommer ProviderMD - 04/08/2018 2:35 PM RIGGER HELPER [address] , [place] [address] Patient Copy Patient Information: Name: GI CRUZ Current Date: 04/08/2018 14:35:16 : 1980 Patient Address: [address] [place] [id number] Patient Attending Physician: YASMANY NEVAREZ MD-ORT Primary Care Provider: RUSS KAN MD-[facility] Primary Care Provider Discharge Diagnosis: Weight on Admission: 251 lb, 0 oz Comment: Follow-up Instructions: With: Address: When: YASMANY NEVAREZ [address] [place] [address], [address] [place] [address] Business (1) Within 1 to [...] any): Final Medication List: Other Medications biotin [address] Oral Every Day. carvedilol (carvedilol 25 mg [...] and water are not available, use hand aoc aadc operations staff officer. ? Change your dressing as told by [...] even if your condition improves. ??? Take ntlf-tzo-cselqtl and prescription medicines only as told by [...] 08/31/2005 Document Revised: 10/19/2016 Document Reviewed: 08/29/2016 [employer] Interactive Patient Education ? [address] [employer] [address] [employer] What You Need to Know About [...] 01/30/2010 Document Revised: 10/04/2016 Document Reviewed: 10/19/[address] [employer] [address] [employer] Patient Education ? [address] [employer] [address] [employer] Myelogram, Care After Introduction Refer to [...] by your health care provider. ??? Take aclw-yfq-hznpwrz and prescription medicines only as told by [...] are taking, including vitamins, herbs, eyedrops, and vtmq-mqt-zukdlhe medicines and creams. ??? Previous problems you [...] 10/04/2004 Document Revised: 03/04/2015 Document Reviewed: 11/24/[address] [employer] [address] [employer] Patient Education ? [address] [employer] [address] [employer] CIGARETTE SMOKING: The facts are clear, cigarette smoking will shorten your life. Smoking can cause many illnesses along the way. As a healthcare provider, we recommend that you stop smoking. Assistance with quitting is available by contacting 6-114-XFJK-NOW. This is a free resource providing counseling, [...] Be sure to sign up for the [employer] patient portal, which gives you 17/09 access to your medical information ??? including these discharge instructions ??? using your computer, smartphone, or tablet. Just go to [employer] to get started. Questions? Call . [facility] would like to thank you for allowing us to assist you with your healthcare needs. NANCY Trujillo RACHEL A, (or manufacturer's representative) have received the above patient education materials/instructions and have verbalized understanding: Patient Signature _ Date/Time Patient Food And Beverage Cashier Signature (if needed) Date/Time Clinician/Hospital Food And Beverage Cashier Signature (if needed) Date/Time documented in this encounter Plan of Treatment Not on file documented as of this encounter Visit Diagnoses Not on filedocumented in this encounter
--- OUTSIDE RECORDS SUMMARY | 2024-12-04 09:56 | XMS_ITS | Encounter Summary ---
Author Organization [employer] ([place], [place], [place], [place]) Address [address] [place] [address] Care Team Providers Care Car Dropper Name Role Phone Unavailable Primary Care Provider Unavailabl e Encounter Details Date Type Department Care Team (Late st Contact Info) Description 04/08/2018 Transcribed Document [facility] Family Medicine [facility] [address] ProviderSommer MD [address] [place] [address] Social History Tobacco Use Types Packs/Day Years Used Date Smoking Tobacco: Never Assessed Comments Unknown Sex and Gender Information Value Date Recorded Sex Assigned at Not on file Legal Sex Female 1:18 PM CDT Gender Identity Not on file Sexual Orientation Not on file documented as of this encounter Miscellaneous Notes * Cerner Conversion Note - Sommer ProviderMD - 04/08/2018 1:56 PM BREAKER MACHINE TENDER Nursing Discharge Summary Entered On: 04/08/2018 13:57 [...] 04/08/2018 13:56 EST Electronically signed by Julio [facility] Conversion Early Learning Teacher Cerner at 06/14/2022 2:51 PM CDT documented in this encounter Plan of Treatment Not on file documented as of this encounter Visit Diagnoses Not on filedocumented in this encounter
--- OUTSIDE RECORDS SUMMARY | 2024-12-04 09:56 | XMS_ITS | Referral Summary ---
Author Organization [employer] ([place], [place], [place], [place]) Address [address] [place] [address] Care Team Providers Care Poured Concrete Wall Technician Name Role Phone Unavailable Primary Care [...]
--- OUTSIDE RECORDS SUMMARY | 2024-12-04 09:56 | XMS_ITS | Encounter Summary ---
Author Organization [facility] ystem Address [address] [place] [address] Care Team Providers Care Senior Center Director Name Role Phone Unavailable Primary Care Provider Unavailabl e Encounter Details Date Type Department Care Team (Late st Contact Info) Description 04/13/2013 Conversion Encounter [facility] HISTORICAL CONV [address] [place] [address] Interface, See Report Social History [...] See Report - 04/13/2013 12:00 AM EST PORTABLE TRACK LINE MARKER-[facility] [address] [place] [address] Patient: JOYCELYN CRUZ MR #: [id number] : 1980 Date of Visit: 04/13/2013 Referring [...]
--- OUTSIDE RECORDS SUMMARY | 2024-12-04 09:56 | XMS_ITS | Encounter Summary ---
Author Organization Healthcare Address [address] [place] [id number] Care Team Providers Care Coke Production Heater Name Role Phone Alena Reed RAZA Primary Care Provider [phone]- [phone] Encounter Details Date Type Department Care Team (Late st Contact Info) Description 10/20/2024 Telephone [facility] [place] [address] [place] [address] January Lewis [place] [id number] Social History Tobacco Use Types Packs/Day Years [...] * Telephone Encounter - January Lewis - 10/20/2024 1:31 PM EDT Patient Name:Gi Smith : 1980 Date:10/20/2024 Affiliate Site: [facility] Referring Physician: Bakari Michael/ Seen: Cardiology/Dr. Guevara Future scheduling/testing needs: pt to have heart cath to be scheduled, has f/u appt 12/07. Pt to also f/u locally with other test/health issues per note. At this time, pt may need LVAD This [facility] Nurse Liaison contacted Gi Smith following their appointment on 10/19/2024. Explained Liaison services offered through the [facility]. Inquired about appointment details and ifpatient had any questions or concerns. Asked patient if they were to have a follow up appointment or testing. Patient denied need for assistance for scheduling at this time. Informed patient that liaisons are always available should a need/concern arise. Liaison contact information provided. Will follow up in 3 months to ensure continuum of care. January Lewis [facility] Nurse Liaison [phone] documented in this encounter Plan of Treatment Upcoming Encounters Date Type Department Care Team (Late st Contact Info) Description 12/07/2024 8:20 AM EDT Office Visit [facility] [place] [address] [facility] [place] [address] Mei Jackson MD [address] [place] [address] documented as of this encounter Visit Diagnoses Not on filedocumented in this encounter Additional Health Concerns Assessment Noted Time A fall risk assessment has been complete d for the patient 10/19/2024 8:34 AM EDT A Body Mass Index follow-up plan has been documented for the patient 10/19/2024 10:29 AM EDT documented as of this encounter Care Teams Coke Production Heater Relationship Specialty Start Date End Date Alena Reed APRN [address] [place] [address] PCP - General 10/19/24 documented as of this encounter
--- OUTSIDE RECORDS SUMMARY | 2024-12-04 09:56 | XMS_ITS | Continuity of Care Document ---
Author Organization [facility] - [facility], Gastro and Hepatology of the Address [address] [address] Care Team Providers Care Teacher Counselor Name Role Phone IRA ROBISON Referring Provider IRA ROBISON Primary Care Provider [phone] Assessment Encounter Date Assessment Date Assessment LastModified by Organization Details LastModified Time 11/30/2024 11/30/2024 36-rxej-ayr-fema le with chronic nausea and dysphagia. GES was c/w gastroparesis. 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 We will repeat PRN. She will be referred to the [facility] per below. 2) Diabetic gastroparesis: Recently diagnosed. Continue Zofran as needed. We previously discussed dietary recommendations in the office today: Keep meals small, allow for 3-4 hours between meal times. Alternate small solid meals with liquid/pureed nutrition. -Strict glucose control is recommended. She is non-insulin dependent but should consider insulin for improved control. She is a poor candidate for GLP-1 agonist therapy. I am concerned that her Trulicity is contributing to her ongoing nausea. I have asked that she talk with primary care about alternatives, potential endocrinology consultation. -Prucalopride was not tolerated due to diarrhea. -We have previously discussed use of Reglan, potential adverse effects of tardive dyskinesia. She defers. -We will start low dose liquid Erythromycin p.o. before meals. We have discussed tachyphylaxis and potential for ototoxicity related to use of the medication. -I will refer the patient to the [facility] for further recommendations related to her gastroparesis and achalasia. 3) ? Silent reflux: Voquezna was not tolerated due to cough. Continue Dexlansoprazole. f/u 2 months Not available 11/30/2024 09:28:37 Plan of Treatment Reminders Order Date Submit Date Provider Last Modified By Organization Details Last Modified Time Details Appointments Establish ed Visit 15 min 2024 08:30A M Amish Redmond PA-C Not available Not available Not available Lab None recorded. Referral gastroent erologist referral 2024 [email or web address] [facility], [address], [address], [place], [address], 11/30/2024 09:29:11 Procedures None recorded. Surgeries None recorded. Imaging None recorded. Medication Orders ondansetr on 4 mg disintegr ating tablet 2024 [facility], [address] [place] [address], [address], [place], [address], 11/30/2024 09:06:01 erythromy ernesto ethylsucc inate 200 mg/5 mL oral powder for suspensio n 2024 [facility], [address], [address], [place], [address], 11/30/2024 09:06:00 Patient TargetsNo targets recorded. Patient InstructionsNo instructions recorded. 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 Rake Operator Referral for Gastroparesis due to diabetes mellitus Referring Physician: Amish Redmond, Gastroenterology, Encounter Date: 11/30/2024 Problems Name Problem SNOMED Code Status Onset Date Resolution Date Notes Provider Name and Address Organization Details Recorded Time Internal hemorrhoids 00071140 Active 2022 Amish Redmond PA-C [address] , [place], [address] , [facility] - [place] & [place] 09:04:34 Nausea 764779657 Active 2022 Amish Redmond PA-C [address], [place], [address] , [place] - [facility] - [place] & [place] 5 09:28:43 Hematochezia 831583836 Active 2022 Amish Redmond PA-C [address], [place], [address] , [place] - [facility] - [place] [facility] [place] 3 09:14:20 Delayed gastric emptying 491466530 Active 2022 Amish Redmond PA-C [address], [place], [address] , [place] - [facility] - [place] [facility] [place] 3 09:14:27 Gastroesophag eal reflux disease 849188253 Active [address], [place], [address] , [place] [facility] [place] 5 09:28:43 Dysphagia 66673554 Active 2023 Amish Redmond PA-C [address], [place], [address] , [place] - [facility] [place] 5 09:28:43 Chronic idiopathic constipation 44942949 Active 2024 Amish Redmond PA-C [address], [place], [address] , [place] - [facility] - [place] [facility] [place] 5 09:12:51 Gastroesophag eal reflux disease without esophagitis 668087164 Active 2024 Amish Redmond PA-C [address], [place], [address] , [place] - [facility] - [place] [facility] [place] 5 09:08:15 Achalasia of esophagus 73791728 Active 2024 Amish Redmond PA-C [address], [place], [address] , [place] - [facility] [place] 5 09:16:39 Gastroparesis due to diabetes mellitus 761278809 Active 2024 Amish Redmond PA-C [address], [place], [address] , [facility] & [place] 09:17:13 Problem Notes None recorded. Procedures Surgical History Date Name Laterality Status Provider Name and Address Organization Details Recorded Time 025 [facility] & [place] 11/30/2024 08:31:32 023 Procedure Note completed BHAVESH MEDLEY MSN, FORM BUILDER, TELEVISION CAMERA OPERATOR-C [address], [place], [address], [facility] & [place] 06/01/2022 09:17:26 021 cholecystectomy completed [facility] & [place] 02/27/2022 08:30:30 020 tonsillectomy completed [facility] & [place] 02/27/2022 08:29:24 020 control of hemorrhage after tonsillectomy and adenoidectomy completed [facility] & [place] 02/27/2022 08:29:54 020 excision of cyst of epididymis completed [facility] & [place] 02/27/2022 08:30:57 019 Carpal tunnel surgery completed [facility] & [place] 02/27/2022 08:29:09 018 automatic defibrillator procedure completed [facility] & [place] 02/27/2022 08:28:58 014 Hysterectomy completed [facility] & [place] 02/27/2022 08:28:35 999 Appendectomy completed [facility] & [place] 02/27/2022 08:28:23 Imaging Results None recorded. Procedure Notes None recorded. Medical Equipment None Reported. Allergies Allergen ID Allergen Name Allergen Category Reaction Reaction Severity Criticality Documentation Date Start Date Code Code System Note Provider Name and Address Organization Details Recorded Time 365936 prednison e medicatio n facial swelling moderate Not available 01/07/2024 8640 RxNorm Amish Redmond PA-C [address] [facility], [place], [address], [facility] - [facility] & [place] 4 08:45:03 Medications Name Sig Start Date [...] Not Available Not Available No t Available erythromyci n ethylsuccin ate 200 mg/5 mL oral powder for suspension Take 1 mL 3 times a day by oral route before meal(s) for 30 days. 2024 active Not Available Not Available Not Avai lable omeprazole 20 mg capsule,del ayed release Take [...] completed Not Available Not Available Not Available Trulicity 1.5 mg/0.5 mL subcutaneou s pen injector Inject every week by subcutane ous route. active Not Available Not Available No t Available Entresto 49 mg-51 mg tablet active [...] completed Not Available Not Available Not Available Zituvimet 50 mg-500 mg tablet Take 1 tablet every day by oral route at bedtime. active Not Available Not Available No t Available Vitals Date Recorded Body height Body mass index (BMI) Body weight Body temperature Oxygen saturation Oxygen saturation in Arterial blood by Pulse oximetry Heart rate Systolic And Diastolic Provider Name and Address Organization Details Last Updated DateTime 160.02 cm 43 kg/m2 836560. 95 g 98.1 [degF] 97 % 97 % 68 /min 99/64 mm[Hg] Vicky [facility] & [place] 08:30:52 Social History None recorded. Functional Status Question [...] Response Anxiety Disorder Y Heart Problems Y Hypothyroidism Y GI Problems Y High Cholesterol N Gynecological HistoryNo gynecological history recorded. Obstetrics History GPAL:G 0 P 0 0 0 0 Past Encounters Encounter ID Performer Location Encounter Start Date Encounter Closed Date Diagnosis/Indication Diagnosis SNOMED-CT Code Diagnosis ICD10 Code Diagnosis IMO Codes Diagnosis Note [id number] Amish Redmond PA-C [facility] [address] [address] 11/30/2024 08:15:36 11/30/2024 09:00:57 Dysphagia 82819737 R13.10 Gastropare sis due to diabetes mellitus 037845657 E11.43 K31.84 68645 Achalasia of esophagus 35222296 K22.0 05875 Nausea 839184549 R11.0 Gastroesop hageal reflux disease 951398786 K21.9 Health Concerns Section Related Observation LastModified by Organization Detai ls LastModified Time None Recorded Concern Status LastModified by Organization Details LastModified Time None Recorded Payers Encounter Date Sequence Insurance Name Policy Number Policy Abdul Covered Member ID Abdul Member ID Guarantor Name 11/30/2024 1 [place] [id number] Rodrick Smith [id number] Gi Smith Notes Date Note Type Note Provider Name and Address Organization Details Recorded Time 11/30/2024 text/html Ms. Smith returns to the office today for follow-up regarding recently diagnosed achalasia and diabetic gastroparesis. She underwent EGD with dilation and Botox injection of the LES on 10/14/24. Gross endoscopic findings at that time showed a hypertonic LES and also retained food was noted in the stomach. She has noted quite a bit of improvement with swallowing following the procedure. She continues to experience frequent nausea throughout the day. She reports she is eating 2 small meals daily. Amish Redmond PA-C [address], [place], [address], [facility] - [facility] - [place] [facility] [place] 11/30/2024 09:29:43 OBGyn Episode No OBEpisode recorded.
--- OUTSIDE RECORDS SUMMARY | 2024-12-04 09:56 | XMS_ITS | Encounter Summary ---
Author Organization [employer] ([place], [place], [place], [place]) Address [address] [place] [address] Care Team Providers Care It Applications Analyst Name Role Phone Unavailable Primary Care Provider Unavailabl e Encounter Details Date Type Department Care Team (Late st Contact Info) Description 04/08/2018 Transcribed Document [facility] [place] [facility] [place] [address] ProviderSommer MD [address] [place] [address] Social History Tobacco Use Types Packs/Day Years Used Date Smoking Tobacco: Never Assessed Comments Unknown Sex and Gender Information Value Date Recorded Sex Assigned at Not on file Legal Sex Female 1:18 PM CDT Gender Identity Not on file Sexual Orientation Not on file documented as of this encounter Miscellaneous Notes * Cerner Conversion Note - Sommer ProviderMD - 04/08/2018 1:57 PM ELECTRIC DOLLY OPERATOR [place] [address] [address] [place] [address] Patient Copy Patient Information: Name: GI CRUZ Current Date: 04/08/2018 13:57:07 : 1980 Patient Address: [address] [place] [id number] Patient Attending Physician: YASMANY NEVAREZ MD-ORT Primary Care Provider: RUSS KAN [facility] Primary Care Provider Discharge Diagnosis: Weight on Admission: 251 lb, 0 oz Comment: Follow-up Instructions: With: Address: When: YASMANY NEVAREZ [address] [place] [address], [address] [place] [address] Business (1) Within 1 to [...] any): Final Medication List: Other Medications biotin 00197 Oral Every Day. carvedilol (carvedilol 25 mg [...] and water are not available, use hand liner inserter. ? Change your dressing as told by [...] even if your condition improves. ??? Take rxza-fqe-kjqdfxc and prescription medicines only as told by [...] 08/31/2005 Document Revised: 10/19/2016 Document Reviewed: 08/29/2016 [employer] Interactive Patient Education ? 2017 [employer] What You Need to Know About [...] 01/30/2010 Document Revised: 10/04/2016 Document Reviewed: 10/19/2015 [employer] Interactive Patient Education ? 2017 [employer] Myelogram, Care After Introduction Refer to [...] by your health care provider. ??? Take nmeh-xdj-kvjodrl and prescription medicines only as told by [...] are taking, including vitamins, herbs, eyedrops, and knse-txt-ekgllfr medicines and creams. ??? Previous problems you [...] 10/04/2004 Document Revised: 03/04/2015 Document Reviewed: 11/24/2015 [employer] Interactive Patient Education ? 2017 [employer] CIGARETTE SMOKING: The facts are clear, cigarette smoking will shorten your life. Smoking can cause many illnesses along the way. As a healthcare provider, we recommend that you stop smoking. Assistance with quitting is available by contacting 6-047-EASM-NOW. This is a free resource providing counseling, [...] Be sure to sign up for the Mobile [employer] patient portal, which gives you 17/09 access to your medical information ??? including these discharge instructions ??? using your computer, smartphone, or tablet. Just go to [employer] to get started. Questions? Call . [facility] would like to thank you for allowing us to assist you with your healthcare needs. NANCY Trujillo RACHEL A, (or livestock sales representative) have received the above patient education materials/instructions and have verbalized understanding: Patient Signature _ Date/Time Patient Adjunct Physics Instructor Signature (if needed) Date/Time Clinician/Hospital Adjunct Physics Instructor Signature (if needed) Date/Time documented in this encounter Plan of Treatment Not on file documented as of this encounter Visit Diagnoses Not on filedocumented in this encounter
--- OUTSIDE RECORDS SUMMARY | 2024-12-04 09:56 | XMS_ITS | Encounter Summary ---
Author Organization Healthcare Address [address] [place] [address] Care Team Providers Care Drop Forge Hand Name Role Phone Alena Reed APRN Primary Care Provider [phone]- [phone] Encounter Details Date Type Department Care Team (Late st Contact Info) Description 10/30/2024 Telephone [facility] [address] [place] [address] Sunitha Fleming, RN EMERGENCY SERVICES Social History Tobacco Use Types Packs/Day Years [...] encounter Miscellaneous Notes * Telephone Encounter - Sunitha Fleming RN - 10/30/2024 3:45 PM EDT Sleep medicine referral faxed to [facility] at [phone]. Included my office number for any additional needs. documented in this encounter Plan of Treatment Upcoming Encounters Date Type Department Care Team (Late st Contact Info) Description 12/07/2024 8:20 AM EDT Office Visit [facility] [address] [place] [address] Mei Jackson MD [address] [place] [address] documented as of this encounter Visit Diagnoses Not on filedocumented in this encounter Additional Health Concerns Assessment Noted Time A fall risk assessment has been complete d for the patient 10/19/2024 8:34 AM EDT A Body Mass Index follow-up plan has been documented for the patient 10/19/2024 10:29 AM EDT documented as of this encounter Care Teams Drop Forge Hand Relationship Specialty Start Date End Date Alena Reed APRN [address] [place] [address] PCP - General 10/19/24 documented as of this encounter
--- OUTSIDE RECORDS SUMMARY | 2024-12-04 09:56 | XMS_ITS | Encounter Summary ---
Author Organization Healthcare Address [address] [id number] Care Team Providers Care Terrazzo Journeyman Name Role Phone Eric Caraballo MD Primary Care Provider [phone] Alena Reed APRN Primary Care Provider [phone]- [phone] Encounter Details Date Type Department Care Team (Late st Contact Info) Description 11/18/2023 Orders Only External Location [address] [place] [address] Candice Rebollar, TRANSISTOR TESTER [address] [id number] Social History Tobacco Use Types Packs/Day Years [...] on file documented as of this encounter Plan of Treatment Upcoming Encounters Date Type Department Care Team (Late st Contact Info) Description 12/07/2024 8:20 AM EDT Office Visit [facility] [place] [address] [facility] [place] [address] Mei Jackson MD [address] [place] [address] documented as of this encounter Procedures Procedure Name Priority Date/Time Associated Diagnosis Comments POC US ECHOCARDIOGRAPHY COMPLETE W DOPPLER AND COLOR 11/18/2023 9:29 AM EDT documented in this encounter Results * POC US Echocardiography Complete W Doppler and Color (11/18/2023 9:29 AM EDT) Anatomical Region Laterality Modality Other 11/18/2023 9:29 AM EDT us Candice Rebollar APRN IMG POINT OF CARE ULTRASOUND Final Result documented in this encounter Visit Diagnoses Not on filedocumented in this encounter Additional Health Concerns Assessment Noted Time A fall risk assessment has been complete d for the patient 11/16/2020 8:30 AM EDT documented as of this encounter Care Teams Terrazzo Journeyman Relationship Specialty Start Date End Date Eric Caraballo MD [address] [place] [address] PCP - General 07/08/20 10/18/24 Alena Reed APRN [address] [place] [address] PCP - General 10/19/24 documented as of this encounter
--- OUTSIDE RECORDS SUMMARY | 2024-12-04 09:56 | XMS_ITS | Encounter Summary ---
Author Organization Healthcare Address [address] [id number] Care Team Providers Care Residential Supervisor Name Role Phone Alena Reed APRN Primary Care Provider [phone] Encounter Details Date Type Department Care Team (Latest Contact Info) Description 10/19/2024 Travel Social History Tobacco Use Types Packs/Day Years [...] Description 12/07/2024 8:20 AM EDT Office Visit [facility] [place] [address] [facility] [place] [address] Mei Jackson MD [address] [place] [address] documented as of this encounter Visit Diagnoses Not on filedocumented in this encounter Additional Health Concerns Assessment Noted Time A fall risk assessment has been complete d for the patient 10/19/2024 8:34 AM EDT A Body Mass Index follow-up plan has been documented for the patient 10/19/2024 10:29 AM EDT documented as of this encounter Care Teams Residential Supervisor Relationship Specialty Start Date End Date Alena Reed APRN [address] [place] [address] PCP - General 10/19/24 documented as of this encounter
--- OUTSIDE RECORDS SUMMARY | 2024-12-04 09:56 | XMS_ITS | Encounter Summary ---
Author Organization [employer] ([place], [place], [place], [place]) Address [address] [place] [address] Care Team Providers Care Batter Mixer Name Role Phone Unavailable Primary Care Provider Unavailabl e Encounter Details Date Type Department Care Team (Late st Contact Info) Description 04/08/[address] 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 WORKER PAT / Pre Procedure Adult Entered On: 04/08/2018 8:43 EST Performed On: 04/08/2018 8:35 EST by LY LIMA RN General Info Arrived From : Home Mode of Arrival on Unit : Ambulatory Patient Arrival Date/Time : 04/08/2018 8:05 EST Legal Guardian : Spouse Support Person/Pt Rep Name : MAR- Support Person/Pt Rep Contact Information : [phone] Want Family/Rep/Phys Notified of Admit : No Emergency Contact #1 : NA Emergency Contact #1 Phone Number : NA Emergency Contact #1 Relationship : NA Emergency Contact #2 : NA Emergency Contact #2 Phone Number : NA Emergency Contact #2 Relationship : NA Information Obtained From : Patient Primary Language : South Sudanese Communication Barrier : None LY LIMA RN - 04/08/2018 8:35 EST Height and Weight, Clinical Dosing Height Source : Stated Height Entry Format : [place] Height, Feet : 5 ft(Converted to: 152 cm, 60 Inch) Height, Inches : 3 Inch(Converted to: 0 ft 3 Inch, 7.62 cm) Clinical Height : 160.02 cm Weight Source : Standing scale Weight Entry Format : [place] Clinical Dosing Weight : 114.09 kg Weight, Pounds : 251 lb Body Surface Area (BSA) : 2.13 m2 Body Mass Index : 44.6 kg/m2 (>HHI) [place] Body Weight : 52 kg LY LIMA [...] Scale Risk Level : 25-45 Medium Risk [place] Fall Interventions : Adequate lighting, Assistive devices [...]
--- OUTSIDE RECORDS SUMMARY | 2024-12-04 09:56 | XMS_ITS | Encounter Summary ---
Author Organization [employer] ([place], [place], [place], [place]) Address [address] [place] [address] Care Team Providers Care Crew Clerk Name Role Phone Unavailable Primary Care Provider Unavailabl e Encounter Details Date Type Department Care Team (Late st Contact Info) Description 04/08/2018 Transcribed Document [facility] [place] Family Medicine [facility] [place] [address] ProviderSommer MD [address] [place] [address] Social History Tobacco Use Types Packs/Day Years Used Date Smoking Tobacco: Never Assessed Comments Unknown Sex and Gender Information Value Date Recorded Sex Assigned at Not on file Legal Sex Female 1:18 PM CDT Gender Identity Not on file Sexual Orientation Not on file documented as of this encounter Miscellaneous Notes * Cerner Conversion Note - Sommer ProviderMD - 04/08/2018 1:21 PM COLLAR TURNER OPERATOR [address] , [place] [address] Patient Copy Patient Information: Name: GI CRUZ Current Date: 04/08/2018 13:21:48 : 1980 Patient Address: [address] [place] [phone] Patient Attending Physician: YASMANY NEVAREZ MD-ORT Primary Care Provider: RUSS KAN MD-[facility] Primary Care Provider Discharge Diagnosis: Weight on Admission: 251 lb, 0 oz Comment: Follow-up Instructions: With: Address: When: YASMANY NEVAREZ [address] [place] [address], [address] [place] [address] Business (1) [...] any): Final Medication List: Other Medications biotin [address] Oral Every Day. carvedilol (carvedilol 25 mg [...] and water are not available, use hand safety sitter. ? Change your dressing as told by [...] even if your condition improves. ??? Take jcqf-lta-deskptq and prescription medicines only as told by [...] 08/31/2005 Document Revised: 10/19/2016 Document Reviewed: 08/29/2016 [employer]th [employer] Interactive Patient Education ? 2017 [employer] What You Need to Know About [...] 01/30/2010 Document Revised: 10/04/2016 Document Reviewed: 10/19/2015 [employer] Interactive Patient Education ? 2017 [employer] Myelogram, Care After Introduction Refer to [...] by your health care provider. ??? Take sino-ozr-zmnollr and prescription medicines only as told by [...] are taking, including vitamins, herbs, eyedrops, and gjlk-hrx-unfeuxd medicines and creams. ??? Previous problems you [...] 10/04/2004 Document Revised: 03/04/2015 Document Reviewed: 11/24/2015 [employer] Interactive Patient Education ? 2017 [employer] CIGARETTE SMOKING: The facts are clear, cigarette smoking will shorten your life. Smoking can cause many illnesses along the way. As a healthcare provider, we recommend that you stop smoking. Assistance with quitting is available by contacting 8-661-SIZR-NOW. This is a free resource providing counseling, [...] Be sure to sign up for the [employer] patient portal, which gives you 17/09 access to your medical information ??? including these discharge instructions ??? using your computer, smartphone, or tablet. Just go to [employer] to get started. Questions? Call . [facility] would like to thank you for allowing us to assist you with your healthcare needs. NANCY Trujillo RACHEL A, (or healthcare representative) have received the above patient education materials/instructions and have verbalized understanding: Patient Signature _ Date/Time Patient Software Quality Assurance Specialist Signature (if needed) Date/Time Clinician/Hospital Software Quality Assurance Specialist Signature (if needed) Date/Time documented in this encounter Plan of Treatment Not on file documented as of this encounter Visit Diagnoses Not on filedocumented in this encounter
--- OUTSIDE RECORDS SUMMARY | 2024-12-04 09:56 | XMS_ITS | Clinical Summary ---
Author Organization [facility] Address [address] [place] [address] Care Team Providers Care Clinic Physician Name Role Phone Unavailable Primary Care Provider [...] VACCINES (1 - Tdap) 10/26/1998 MAMMOGRAM 2019 INFLUENZA VACCINE 09/25/2024 COLOGUARD 10/26/2024 COLON CANCER SCREENING 5 YEA R SIGMOIDOSCOPY 10/26/2024 COLONOSCOPY 10/26/2024 COLORECTAL CANCER SCREENING 10/26/2024 CT COLONOGRAPHY 10/26/2024 FECAL OCCULT BLOOD TEST 10/26/2024 FIT Testing (1 year) 10/26/2024 Pneumococcal Vaccine 0-49 Aged Out No longer eligible based on patient's age to complete this topic Insurance EMPLOYEE
--- OUTSIDE RECORDS SUMMARY | 2024-12-04 09:56 | XMS_ITS | Encounter Summary ---
Author Organization Healthcare Address [address] [place] [address] Care Team Providers Care Retail Marketing Executive Name Role Phone Alena Reed APRN Primary Care Provider +1- [phone] Encounter Details Date Type Department Care Team (Late st Contact Info) Description 11/04/2024 Telephone [facility] [place] [address] [place] [address] Mei Jackson MD [address] [place] [address] Social History Tobacco Use Types Packs/Day Years [...] Telephone Encounter - Sunitha Fleming RN - 11/04/2024 11:30 AM EDT Spoke to Holly at [facility] and faxed office note, insurance card, and order for sleep studyto [phone]. * Telephone Encounter - Leigh Bajwa - 11/04/2024 10:35 AM EDT Clinical Concern/Question Reason for Call: [facility] called to check to see if we are ordering a sleep study for pt. Best contact number: [phone] Optimal time of day to reach caller: Additional comments/information from caller: Note: Please do not reply to this message. Follow-up communication and further actions as a result of this message need to be communicated with the patient directly, if the patient is not active onMyChart. If the patient is active on MyChart, they will receive notification of the communication/outcome via [employer]. documented in this encounter Plan of Treatment Upcoming Encounters Date Type Department Care Team (Late st Contact Info) Description 12/07/2024 8:20 AM EDT Office Visit [facility] [place] [address] [facility] [place] [address] Mei Jackson MD [address] [place] [address] documented as of this encounter Visit Diagnoses Not on filedocumented in this encounter Additional Health Concerns Assessment Noted Time A fall risk assessment has been complete d for the patient 10/19/2024 8:34 AM EDT A Body Mass Index follow-up plan has been documented for the patient 10/19/2024 10:29 AM EDT documented as of this encounter Care Teams Retail Marketing Executive Relationship Specialty Start Date End Date Alena Reed APRN [address] [place] [address] PCP - General 10/19/24 documented as of this encounter
--- OUTSIDE RECORDS SUMMARY | 2024-12-04 09:56 | XMS_ITS | Encounter Summary ---
Author Organization [employer] ([place], [place], [place], [place]) Address [address] [place] [address] Care Team Providers Care Assistant Project Manager Name Role Phone Unavailable Primary Care Provider Unavailabl e Encounter Details Date Type Department Care Team (Late st Contact Info) Description 04/08/2018 Transcribed Document [facility] [place] Family Medicine [facility] [place] [address] ProviderSommer MD [address] [place] [address] Social History Tobacco Use Types Packs/Day Years Used Date Smoking Tobacco: Never Assessed Comments Unknown Sex and Gender Information Value Date Recorded Sex Assigned at Not on file Legal Sex Female 1:18 PM CDT Gender Identity Not on file Sexual Orientation Not on file documented as of this encounter Miscellaneous Notes * Cerner Conversion Note - Sommer ProviderMD - 04/08/2018 8:22 AM DESIGN EDITOR Discharge Instructions Entered On: 04/08/2018 8:23 EST [...] 04/08/2018 8:22 EST Electronically signed by Julio [id number] Conversion Food Expeditor Cerner at 06/14/2022 2:54 PM CDT documented in this encounter Plan of Treatment Not on file documented as of this encounter Visit Diagnoses Not on filedocumented in this encounter
--- OUTSIDE RECORDS SUMMARY | 2024-12-04 09:56 | XMS_ITS | Clinical Summary ---
Author Organization [employer] ([place], [place], [place], [place]) Address [address] [place] [address] Care Team Providers Care Client Service Manager Name Role Phone Unavailable Primary Care [...]
--- OUTSIDE RECORDS SUMMARY | 2024-12-04 09:56 | XMS_ITS | Encounter Summary ---
Author Organization [employer] ([place], [place], [place], [place]) Address [address] [place] [address] Care Team Providers Care Aeronautical Test Engineer Name Role Phone Unavailable Primary Care Provider Unavailabl e Encounter Details Date Type Department Care Team (Late st Contact Info) Description 04/08/2018 Transcribed Document [facility] [place] Family Medicine [facility] [place] [address] ProviderSommer MD [address] [place] [address] Social History Tobacco Use Types Packs/Day Years Used Date Smoking Tobacco: Never Assessed Comments Unknown Sex and Gender Information Value Date Recorded Sex Assigned at Not on file Legal Sex Female 1:18 PM CDT Gender Identity Not on file Sexual Orientation Not on file documented as of this encounter Miscellaneous Notes * Cerner Conversion Note - Sommer ProviderMD - 04/08/2018 8:23 AM POLY OPERATOR [place] [address] [facility] [place] [address] Patient Copy Patient Information: Name: GI CRUZ Current Date: 04/08/2018 08:23:47 : 1980 Patient Address: [address] [place] [id number] Patient Attending Physician: YASMANY NEVAREZ MD-ORT Primary Care Provider: RUSS KAN MD-[facility] Primary Care Provider Discharge Diagnosis: Comment: Follow-up Instructions: With: Address: When: YASMANY NEVAREZ [address] [facility], [address] [place] [address] Business (1) Within 1 to 2 weeks Comments: DIRECTED. BRING CD DISC TO APPT Type Location Start Finish State [facility]30 AM 10:[address] [facility] 10:00 AM 10:30 AM Confirmed < [...] and water are not available, use hand general clerk. ? Change your dressing as told by [...] even if your condition improves. ??? Take syag-nbd-cqjafdn and prescription medicines only as told by [...] 08/31/2005 Document Revised: 10/19/2016 Document Reviewed: 08/29/2016 [employer] Interactive Patient Education ? 2017 [employer]. What You Need to Know [...] 01/30/2010 Document Revised: 10/04/2016 Document Reviewed: 10/19/2015 [employer] Interactive Patient Education ? 2017 [employer]. Myelogram, Care After Introduction Refer to [...] by your health care provider. ??? Take wivd-imb-kysyqrg and prescription medicines only as told by [...] are taking, including vitamins, herbs, eyedrops, and ykgx-fub-msfnseh medicines and creams. ??? Previous problems you [...] 10/04/2004 Document Revised: 03/04/2015 Document Reviewed: 11/24/2015 [employer] Interactive Patient Education ? 2017 [employer]. CIGARETTE SMOKING: The facts are clear, cigarette smoking will shorten your life. Smoking can cause many illnesses along the way. As a healthcare provider, we recommend that you stop smoking. Assistance with quitting is available by contacting 7-112-SULF-NOW. This is a free resource providing counseling, [...] Be sure to sign up for the [email or web address] patient portal, which gives you 17/09 access to your medical information ??? including these discharge instructions ??? using your computer, smartphone, or tablet. Just go to [employer] to get started. Questions? Call . [facility] would like to thank you for allowing us to assist you with your healthcare needs. NANCY Trujillo RACHEL A, (or sales representative aircraft) have received the above patient education materials/instructions and have verbalized understanding: Patient Signature _ Date/Time Patient Saw Offbearer Signature (if needed) Date/Time Clinician/Hospital Saw Offbearer Signature (if needed) Date/Time documented in this encounter Plan of Treatment Not on file documented as of this encounter Visit Diagnoses Not on filedocumented in this encounter
--- OUTSIDE RECORDS SUMMARY | 2024-12-04 09:56 | XMS_ITS | Clinical Summary ---
Author Organization Healthcare Address [address] [id number] Care Team Providers Care Supervisor Chlorine Liquefaction Name Role Phone Alena Reed RAZA Primary Care Provider +1- [phone] Allergies Active Allergy Reactions Criticality Noted Date Comments Prednisone Swelling High 10/19/2024 Medications Xarelto 20 MG tablet 1 Active carvedilol (Coreg) 25 MG tablet Take 0.5 tablets by mouth 2 times a day with meals. 7 Active Entresto 49-51 MG tablet 1 Active spironolactone (Aldactone) 25 MG tablet 1 Active hydrOXYzine HCl (Atarax) 25 MG tablet 1 Active levothyroxine (Synthroid, Levoxyl) 25 MCG tablet 1 Active traMADol (Ultram) 50 MG tablet 1 Active busPIRone (Buspar) 10 MG tablet 1 Active gabapentin (Neurontin) 400 MG capsule 1 Active ondansetron (Zofran) 4 MG tablet 1 Active omeprazole (PriLOSEC) [address] capsule 1 Active GaviLyte-G 236 g solution 1 Active bumetanide (Bumex) 1 MG tablet Take 1 tablet by mouth daily. 5 Active methocarbamol (Robaxin) 500 MG tablet Take 1 tablet by mouth 3 times a day as needed for muscle spasms. Active naproxen (EC Naprosyn) 375 MG EC tablet Take 1 tablet by mouth daily. Do not crush, chew, or split. Active baclofen (Lioresal) 20 MG tablet Take 1 tablet by mouth 3 times a day. Active triamcinolone (Kenalog) 0.1 % cream Apply 1 Application topically 2 times a day. Active Biotin 10 MG capsule Take 10 mg by mouth daily. Active magnesium oxide (Mag-Ox) 400 mg tablet Take 1 tablet by mouth nightly. Active rosuvastatin (Crestor) 40 MG tablet Take 1 tablet by mouth daily. Take 1/2 tablet every evening per patient Active dulaglutide (Trulicity) 1.5 MG/0.5ML solution auto-injector Inject 1.5 mg under the skin 1 time per week. Active SITagliptin Base-metFORMIN HCl (Zituvimet) 50-500 MG tablet Take by mouth. Activ e dexlansoprazol e (Dexilant) [address] capsule Take 1 capsule by mouth daily. Do not crush or chew. Active simvastatin (Zocor) 40 MG tablet 1 11/13/19 25 Discontin ued(Stop Taking at Discharge ) metFORMIN (Glucophage) 500 MG tablet 1 11/13/19 25 Discontin ued(Stop Taking at Discharge ) hydroxychloroq uine (Plaquenil) 200 MG tablet 1 11/13/19 25 Discontin ued(Stop Taking at Discharge ) Januvia 100 MG tablet 1 11/13/19 25 Discontin ued(Stop Taking at Discharge ) ergocalciferol 1.25 MG (51250 UT) capsule 0 11/13/19 25 Discontin ued(Stop Taking at Discharge ) Active Problems Problem Noted Date Diagnosed Date HFrEF (heart failure with reduced ejection fract ion) 10/19/2024 NICM (nonischemic cardiomyopathy) 10/19/2024 ICD (implantable cardioverter-defibrillator) in place 10/19/2024 Syncope and collapse 10/19/2024 Pulmonary emboli 10/19/2024 Morbid obesity 10/19/2024 Type 2 diabetes mellitus wit hout complication, with long-term current use of insulin 10/19/2024 Encounters Date Type Department Care Team Description 11/11/2024 11:45 AM EDT - 11/11/2024 1:00 PM EDT [facility] [address] [place] [phone] Mei Jackson MD Right heart catheterization [85726 (CPT )] 11/11/2024 9:38 AM EDT - 11/12/2024 2:00 AM EDT Hospital Encounter [facility] [address] [place] [address] Mei Jackson MD HFrEF (heart failure with reduced ejection fraction) (CMS/HCC) Discharge Disposition: Home or Self Care 11/04/2024 Telephone [facility] [address] [address] Mei Jackson MD 10/30/2024 Telephone [facility] [address] [facility] [phone] Sunitha Fleming RN 10/20/2024 Telephone [facility] [address] [facility] [address] [phone] January Lewis 10/19/2024 8:20 AM EDT Office Visit [facility] [address] [facility] [phone] Mei Jackson MD HFrEF (heart failure with reduced ejection fraction) (CMS/HCC) (Primary Dx); ICD (implantable cardioverter-defibrilla tor) in place; NICM (nonischemic cardiomyopathy) (CMS/HCC); Syncope and collapse; Morbid obesity (CMS/HCC); Type 2 diabetes mellitus without complication, with long-term current use of insulin; Other fatigue 10/19/2024 Travel 10/15/2024 Telephone [facility] [address] [facility] [phone] January Lewis from Last 3 Months Family History 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 Relation Name Comments [...] Mass Index 42.45 11/11/2024 10:04 AM EDT Plan of Treatment Upcoming Encounters Date Type Department Care Team (Late st Contact Info) Description 12/07/2024 8:20 AM EDT Office Visit [facility] [place] [address] [facility] [place] [address] Mei Jackson MD [address] [place] [address] Health Maintenance Due Date Last Done Comments [facility]-Diabetes: Hemoglobin A1C 1980 [facility]-HIV Screening 1980 [facility]-Infant/Child/Adol SDOH Screenings 1980 [id number] Vaccine (#1) 10/26/1984 Diabetes: Dental Exam 10/26/1989 [facility]-Varicella Vaccines (1 of 2 - 13+ 2-dose series) 10/26/1992 [facility]- SDOH Screenings 10/26/1997 [facility]-Adult SDOH Screenings 10/26/1997 [facility]-DTaP,Tdap,and Td Vaccine s (1 - Tdap) 10/26/1998 [facility]-Hepatitis B Vaccines (1 of 3 - 19+ 3-dose series) 10/26/1998 [facility]-Pneumococcal Vaccine: Pediatrics (0 to 5 Years) and At-Risk Patients (6 to 49 Years) (1 of 2 - PCV) 10/26/1998 HPV Vaccines (1 - 3-dose SCD M series) 10/26/2006 [facility]-Depression Screening 11/16/2021 11/16/2020 CT Colonography 10/26/2024 Colonoscopy 10/26/2024 FIT-DNA 10/26/2024 FIT 10/26/2024 FOBT 10/26/2024 Sigmoidoscopy 10/26/2024 [facility]-Colorectal Cancer Screening 10/26/2024 [facility]-Influenza Vaccine (#1) 2024 [facility]-Zoster Vaccines (1 of 2) 10/26/2029 [facility]-Hepatitis C Screening Completed 04/18/2017 [facility]-Obesity Intervention Completed 025, 10/19/2024, 10/19/2024 [facility]-HIB Vaccines Aged Out No longer e [...] on patient's age to complete this topic Procedures Procedure Name Priority Date/Time Associated Diagnosis Comments POCT CO-OXIMETRY MIXED VENOUS UNSOLICITED RESULTS Routine 11/11/2024 12:00 PM EDT RIGHT HEART CATHETERIZATION Routine 11/11/2024 11:57 AM EDT HFrEF (heart failure with reduced ejection fraction) (CMS/HCC) ECG ADULT Routine 10/19/2024 8:42 AM EDT COMPREHENSIVE METABOLIC PANEL, PLASMA Routine 10/06/2024 10:23 AM EDT MAGNESIUM, PLASMA Routine 10/06/2024 10: 23 AM EDT HEPATITIS C ANTIBODY W/REFLEX TO HCV QUANT PCR Routine 04/18/2017 12:17 PM EST from Last 3 Months or Most Recently Relevant to Health Maintenance Results * (ABNORMAL) POCT Co-Oximetry Mixed Venous (11/11/2024 12:00 PM EDT) POCT Oxyhemoglobin, Mixed Venous 64.9 % 11/11/2024 11:57 AM EDT HEALTH[facility]ARE [facility] Filtration Supervisor ID Makenna Juarez 11/11/2024 11:57 AM EDT HEALTHCARE LAB Device ID [id number] 11/11/2024 11:57 AM EDT HEALTHCARE LAB POCT Sample Site PA 11/11/2024 11:57 AM EDT HEALTHCARE LAB POCT Total Hemoglobin 10.8(L) 11.2 - 15.7 g/dL 11/11/2024 11:57 AM EDT HEALTHCARE LAB 11/11/2024 12:0 0 PM EDT 11/11/2024 11:57 AM EDT Mei Jackson MD LAB POINT OF CARE TEST DOCKED DEVICE UNSOLICITED RESULTS Final Result [facility]ARE [facility] [address] [place] [address] * RIGHT HEART CATHETERIZATION (11/11/2024 11:57 AM [...] receptive Procedure Details Right Heart Catheterization Attending: eMi Jackson MD Indication for procedure: 44 YO F with HFrEF due to NICM, PE, gastroparesis and morbid obesity presents for RHC due to described NYHA Class 3 symptoms to evaluate hemodynamics. Operative Procedures: Right heart catheterization Access: Right Jugular vein 8 Fr [place] Sheath Procedure: After obtaining consent, the patient [...] was inserted through the needle, an 8Fr [place] sheath was inserted over the wire, subsequently blood was aspirated and the sheath was flushed. A 7.5 Maltese [place]- Angela catheter was passed through the [place] sheath into the RA, RV and PA chambers along with obtaining measured pressures and PCWP. A small blood sample was obtained from the PA to calculate assumed Alexander cardiac output and index in addition to thermodilution technique. Ultimately, the Centerton sheath was withdrawn while the patient was [...] Thermo CO: 6.8 L/min CI: 3.1 L/min/m2 MANAGER AVIATION: 0.42 W Resistance Thermo PVR: 1.6 SANCHEZ Thermo PVR: 129 (dyne x sec)/cm5 Hemodynamic Data Saturations Phase: Resting Saturations PA: 65 % Mei Jackson MD CV CARDIAC CATH PROCEDURES Final Result * ECG Adult (Now - Performed in your clinic) (10/19/2024 8:42 AM EDT) EKG DIAGNOSIS CLASS Abnormal MUSE ECG Ventricular Rate 82 BPM MUSE ECG Atrial Rate 82 BPM MUSE ECG NJ Interval 142 ms MUSE ECG QRSD Interval 140 ms MUSE ECG QT Interval 432 ms MUSE ECG QTC Interval 504 ms MUSE ECG P [place] 75 degrees MUSE ECG R [place] 143 degrees MUSE ECG T Wave [place] 98 degrees MUSE ECG Diagnosis Atrial-sensed ventricular-p aced rhythm MUSE ECG Diagnosis Abnormal ECG MUSE ECG Diagnosis MUSE ECG Diagnosis Confirmed by Kenya Anton ([id number]) on 10/20/2024 4:06:01 PM MUSE ECG 10/19/2024 8:42 AM EDT 10/20/2024 4:06 PM EDT Mei Jackson MD ECG ORDERABLES Final Resu lt Performing Organization Address City/[facility] Co de Phone Number MUSE ECG * Magnesium, Plasma (10/06/2024 10:23 AM EDT) Pathologist [facility] External Magnesium (Mg) 1.6 EXTERNAL LAB Blood Venous blood specimen / Unknown 10/06/2024 10:23 AM EDT Historical Provider LAB BLOOD ORDERABLES Final R esult Performing Organization Address City/[facility] Co de Phone Number EXTERNAL LAB * (ABNORMAL) Comprehensive Metabolic Panel, Plasma (10/06/2024 10:23 AM EDT) External Glucose 294 EXTERNAL LAB Comment:High External BUN 13 EXTERNAL LAB External Creatinine Blood 0.90 mg/dL EXTERNAL LAB External UN/Creat Ratio (UC) tnp EXTERNAL LAB External Sodium (Na) 136 mEq/L EXTERNAL LAB External Potassium (K) 5.1 EXTERNAL LAB External Chloride (Cl) 96 EXTERNAL LAB Comment:Low External Carbon Dioxide (CO2) 26 EXTERNAL LAB External Anion Gap (AG) 19.1 EXTERNAL LAB Comment:High External Calcium (Ca) 9.9 EXTERNAL LAB External Total Protein 7.4 EXTERNAL LAB External Albumin 4.6 g/dL EXTERNAL LAB External AST (SGOT) tnp EXTERNAL LAB External ALT (SGPT) 44 EXTERNAL LAB External Alkaline Phosphatase 139 EXTERNAL LAB Comment:High External Bilirubin Total 0.6 mg/dL EXTERNAL LAB External Estimated GFR 68 EXTERNAL LAB External EGFR (If AFR/AM) 82 EXTERNAL LAB Blood Venous blood specimen / Unknown 10/06/2024 10:23 AM EDT [facility] Provider LAB BLOOD ORDERABLES Final R esult EXTERNAL LAB * Hepatitis C Antibody (04/18/2017 12:17 PM EST) Hepatitis C Antibody NEGATIVE Reference Range: Negative SUNQUEST 04/18/2017 12:1 7 PM EST 04/18/2017 4:17 PM EST Historical Provider LAB BLOOD ORDERABLES Final R esult SUNQUEST from Last 3 Months or Most Recently Relevant to Health Maintenance Insurance ANTH Care Teams Supervisor Chlorine Liquefaction Relationship Specialty Start Date End Date Alena Reed APRN [address] [place] [address] PCP - General 10/19/24
--- OUTSIDE RECORDS SUMMARY | 2024-12-04 09:56 | XMS_ITS | Encounter Summary ---
Author Organization [facility] ystem Address [address] [place] [address] Care Team Providers Care Environmental Health Nurse Name Role Phone Unavailable Primary Care Provider Unavailabl e Encounter Details Date Type Department Care Team (Late st Contact Info) Description 03/02/2013 Conversion Encounter [facility] HISTORICAL CONV [address] [place] [address] Interface, See Report Social History [...] See Report - 03/02/2013 12:00 AM EST MAKEUP ARTIST-Oncology Services [address] [place] [address] Patient: JOYCELYN CRUZ MR #: [id number] : 1980 Date of Visit: 03/02 Referring Physician: Dictated By: Malcolm Nuñez MD Diagnosis: AUB FIBROIDS MORBID OBESITY H/O PULMONARY EMBOLI ( COUMADIN) Allergies: NKDA History of present illness: AUB SINCE 1998. SHE WENT 2 YRS WITH AMENORRHEA. SHE WENT TO DR. WOODS IN [place]. HE PUT HER ON BCP. HER MENSES [...]
[2024-12-04 10:29] LABS: Hematocrit 37.5 % (37.0-47.0); Hemoglobin 12.1 g/dL (12.2-16.2); Immature Granulocytes % 0.5 %; Mean Corpuscular HGB Conc 32.3 g/dL (31.8-35.4); Mean Corpuscular Hemoglobin 25.7 pg (27.0-31.2); Mean Corpuscular Volume 79.6 fl (81-99); Nucleated Red Blood Cells % 0 %; Platelet Count 257 K/mm3 (142-424); Red Blood Count 4.71 M/mm3 (4.20-5.40); Red Cell Distribution Width-SD 37.2 fL; White Blood Count 11.1 K/mm3 (4.8-10.8)
[2024-12-04 11:47] LABS: 25-OH Vitamin D, Total 34.5 ng/mL (30-100)
[2024-12-04 12:00] LABS: Thyroid Stimulating Hormone 0.02 uIU/mL (0.465-4.68)
[2024-12-04 12:19] LABS: Vitamin B12 482 pg/mL (239-931)
[2024-12-04 19:30] LABS: Ferritin 10.6 ng/ml (6.24-137)
[2024-12-05 10:39] LABS: FSH 3.8 mIU/mL (.); LH 2.0 mIU/mL (.)
[2024-12-06 13:27] LABS: Cortisol,AM 7.4 ug/dL (6.2-19.4)
== END 2024-12-04 23:59 | disposition home or self-care (01) ==
LOC: LAB 09:54
PROVIDERS: PCP Nurse Practitioner Family; Visit Provider Nurse Practitioner Family
DX: D50.9 Iron deficiency anemia, unspecified (principal); R79.89 Other specified abnormal findings of blood chemistry; E05.90 Thyrotoxicosis, unspecified without thyrotoxic crisis or storm
CPT/HCPCS: 36415; 82024; 82180; 82306; 82533; 82607; 82670; 82728; 83001; 83002; 83735; 84144; 84443; 85025

== ENCOUNTER 2024-12-21 12:47 | Outpatient (CLI) | payer BC, SELFPAY ==
--- OUTSIDE RECORDS SUMMARY | 2024-11-11 09:38 | XMS_ITS | Encounter Summary ---
Author Organization Healthcare Address [address] [id number] Care Team Providers Care Extractor Operator Name Role Phone Alena Reed RAZA Primary Care Provider [phone] Reason for Visit * Auth/Cert (Routine) Specialty Diagnoses / Procedures Referred By Ravinder cruz Referred To Contact Diagnoses HFrEF (heart failure with reduced ejection fraction) HFrEF (heart failure with reduced ejection fraction) (CMS/HCC) [I50.20] Procedures MA RIGHT HEART CATH O2 SATURATION & CARDIAC OUTPUT Right heart catheterization Mei Jackson MD [address] [place] [address] Phone: tel: fax: Cardiac Marine Engineering Professor [address] [place] [address] Phone: tel: Referral ID Status Reason Start Date Expiration Date Visits Re quested Visits Authorized [id number] 1 1 Encounter Details Date Type Department Care Team (Latest Contact Info) Description 11/11/2024 9:38 AM EDT - 11/12/2024 2:00 AM EDT Hospital Encounter Cardiac Marine Engineering Professor [address] [place] [address] Mei Jackson MD [address] [place] [address] HFrEF (heart failure with reduced ejection fraction) (CMS/HCC) Discharge Disposition: Home or Self Care Social History Tobacco Use Types Packs/Day Years [...] Sign Reading Time Taken Comments Blood Pressure 125/78 11/11/2024 12:30 PM EDT Pulse 86 11/11/2024 12:30 PM EDT Temperature 37.2 C (99 F) 11/11/2024 12:08 PM EDT Respiratory Rate 20 11/11/2024 12:30 PM EDT Oxygen Saturation 95% 11/11/2024 12:30 PM EDT Inhaled Oxygen Concentration - - Weight 109 kg (239 lb 10.2 oz) 11/11/2024 10:04 AM EDT Height 160 cm (5' 3 ) 11/11/2024 10:04 AM EDT Body Mass Index 42.45 11/11/2024 10:04 AM EDT documented in this encounter Functional Status * Calculated C-SSRS Risk Score (Lifetime/Recent) Answer Date of Assessment Author No Risk Indicated 11/11/2024 9:58 AM EDT Altaf Garcia RN * Question Answer Date of Assessment Author 1. Wish to be (Past 1 Month) No 025 9:58 AM EDT Altaf Garcia RN 2. Non-Specific Active Suici brady Thoughts (Past 1 Month) No 11/11/2024 9:58 AM EDT Villa Garcia RN 6. Suicidal Behavior (Lifetime) No 9:58 AM EDT Altaf Gacria RN documented as of this encounter Medications at Time of Discharge baclofen (Lioresal) 20 MG tablet Take 1 tablet by mouth 3 times a day. Biotin 10 MG capsule Take 10 mg by mouth daily. bumetanide (Bumex) 1 MG tablet Take 1 tablet by mouth daily. 09/28/2024 busPIRone (Buspar) 10 MG tablet 11/12/2020 carvedilol (Coreg) 25 MG tablet Take 0.5 tablets by mouth 2 times a day with meals. 01/27/2017 dexlansoprazole (Dexilant) [address] capsule Take 1 capsule by mouth daily. Do not crush or chew. dulaglutide (Trulicity) 1.5 MG/0.5ML solution auto-injector Inject 1.5 mg under the skin 1 time per week. Entresto 49-51 MG tablet 11/12/2020 gabapentin (Neurontin) 600 MG tablet 11/10/2024 GaviLyte-G 236 g solution 07/06/2020 hydrOXYzine HCl (Atarax) 25 MG tablet 11/14/2020 levothyroxine (Synthroid, Levoxyl) 25 MCG tablet 05/03/2020 magnesium oxide (Mag-Ox) 400 mg tablet Take 1 tablet by mouth nightly. methocarbamol (Robaxin) 500 MG tablet Take 1 tablet by mouth 3 times a day as needed for muscle spasms. naproxen (EC Naprosyn) 375 MG EC tablet Take 1 tablet by mouth daily. Do not crush, chew, or split. omeprazole (PriLOSEC) [address] capsule 11/14/2020 ondansetron (Zofran) 4 MG tablet 11/15/2020 rosuvastatin (Crestor) 40 MG tablet Take 1 tablet by mouth daily. Take 1/2 tablet every evening per patient spironolactone (Aldactone) 25 MG tablet 11/08/2020 traMADol (Ultram) 50 MG tablet 09/09/2020 triamcinolone (Kenalog) 0.1 % cream Apply 1 Application topically 2 times a day. Xarelto 20 MG tablet 11/14/2020 gabapentin (Neurontin) 400 MG capsule 10/10/2020 SITagliptin Base-metFORMIN HCl (Zituvimet) 50-500 MG tablet Take by mouth. 11/25 5 documented as of this encounter Miscellaneous Notes * Nursing Note - Altaf Garcia RN - 11/11/2024 12:43 PM EDT Went over discharge info with patient and verbalized understanding. GCS 15. Vitals stable. Site is soft, clean,dry, and intact. Will remove IV once dressed. * Neal AdonisSIRI - Radha, Altaf Miranda, RN - 11/11/2024 12:20 PM EDT Images from the original note were not included. [id number] Bleeding or Hematoma After Cardiac Catheterization You recently had cardiac catheterization. A catheter was put into your body through a puncture of an artery in your groin or arm. You might have bleeding from this site. When bleeding occurs, it may drip or spurt from the site. Or it may collect in a lump (hematoma) under the skin. This often needsurgent evaluation in an emergency room. First put direct pressure on the site, and call 911 or havesomeone take you to the emergency room. In the emergency room, more pressure will be put on the site to stop bleeding. You may be sent home if the bleeding can be controlled and you are feeling well enough. To prevent repeat bleeding, take some precautions at home. If the bleeding starts again, follow the advice below. Home care For the next 48 hours: ? Don't do any strenuous activity. ? Don't climb any stairs if possible. ? Don't lift anything greater than 5 pounds. ? If the puncture site is in your arm or wrist, don't lie on that arm. ? If your puncture site is in the groin, don't strain at bowel movements. ? Don't scrub the site when bathing. It's fine to get it wet after your health care provider says it's okay, but don't scrub it or massage it. Don't take a tub bath for 3 days after the procedure. ? Don't drive for the next 48 hours. If bleeding happens again, call 911. Take the following steps to stop the bleeding until help arrives: ? Lie on your back. ? Place a clean cloth or gauze pad over the puncture site. Then hold firm pressure right on the site. Or have someone else apply firm pressure using the gauze pad or washcloth. ? If the site is in your arm or wrist, keep your arm straight and raised above the level of your heart. If the site is in your groin, have someone else hold pressure on the site. ? Don't press too hard! If you press too hard, your leg and foot (or arm and hand) will not get blood flow, and the skin under your toenails or fingernails may turn white. The skin should look pink, like the toenails on your other foot. When the toenail is pressed, it will turn white, but when you stop pressing on the nail it will turn pink again. This is called capillary refill. If there is someone with you, they can check it. ? If your toes, foot, or leg start feeling numb, tingly, or cold, ease up on the pressure. You are probably pressing too hard. ? As soon as emergency care arrives, they will take over your care. Follow-up care Follow up with your health care provider, or as advised. Ask your provider for a contact number to call. Call 911 Call 911 if any of these occur: ? Chest pain or pressure ? Any bleeding from the site ? Feeling weak or faint ? Trouble breathing ? Lump (hematoma) is quickly getting larger ? Coolness, numbness, tingling, or skin color changes in the leg or arm with the puncture site When to get medical advice Contact your health care provider or get medical care right away if you have: ? Increased pain, redness, swelling, or drainage from the puncture site. ? Nausea or vomiting. ? A fever of 100.4??F (38??C) or higher, or as directed by your provider. Last Reviewed Date: 2024 00:00:00 ?? 1980-2353 [employer]. All rights reserved. This information is not intended as a substitute for professional medical care. Always follow your healthcare professional's instructions. * Neal OnIR - Altaf Garcia RN - 11/11/2024 12:20 PM EDT Images from the original note were not included. [id number] Right Heart Catheterization: About This Test What is it? Right heart catheterization is a test to check the right side of your heart. The right side of the heart receives blood from the body and pumps it to the lungs. The blood picks up oxygen in the lungs. A doctor will insert a thin, flexible tube (catheter) into a blood vessel in your neck, groin, or arm. During the test, the doctor moves the catheter through the blood vessel into your heart. Why is this test done? The test checks the blood pressure and oxygen levels in your lungs and heart. It also checks how well your heart is pumping. This test is different from left heart catheterization. That test checks for blockages in the coronary arteries. How do you prepare for the procedure? Procedures can be stressful. This information will help you understand what you can expect. And it will help you safely prepare for your procedure. Preparing for the procedure ? Be sure you have someone to take you home. Anesthesia and pain medicine will make it unsafe for you to drive or get home on your own. ? Understand exactly what procedure is planned, along with the risks, benefits, and other options. ? Tell your doctor ALL the medicines, vitamins, supplements, and herbal remedies you take. Some mayincrease the risk of problems during your procedure. Your doctor will tell you if you should stop taking any of them before the procedure and how soon to do it. ? If you take a medicine that prevents blood clots, your doctor may tell you to stop taking it before your procedure. Or your doctor may tell you to keep taking it. (These medicines include aspirin and other blood thinners.) Make sure that you understand exactly what your doctor wants you to do. ? Make sure your doctor and the hospital have a copy of your advance directive. If you don't have one, you may want to prepare one. It lets others know your health care wishes. It's a good thing to have before any type of surgery or procedure. How is the test done? ? The test is done in a hospital, often in a cardiac catheterization laboratory ( clinical genetics laboratory chief ). You lie on a table under a large X-ray machine. ? You may get medicine through an I.V. in one of your veins to help you relax. ? You will be awake during the procedure, but you may not be able to remember much about it. The doctor will inject some medicine to numb the skin where the catheter will be put in. You will feel a small needle stick, like having a blood test. You may feel some pressure when the doctor puts in the catheter. ? The doctor may look at X-ray pictures on a monitor (like a TV screen) to move the catheter to your heart and lungs. ? The doctor will check things like blood pressure inside your heart and lungs. ? The catheter will be removed. A nurse may press on a bandage on the opening to prevent bleeding. ? After the procedure, pressure may be applied for a short time to the area where the catheter was put into your blood vessel. This will help prevent bleeding. A small device may also be used to close the blood vessel. You may have a bandage or compression device on the catheter site. ? You will stay in a room for at least a few hours to make sure the catheter site starts to heal. ? If the catheter was placed in your neck or arm, you may sit up in your bed. If the catheter was placed in your groin, you may lie in bed for up to a few hours. How long does the test take? The test may take about 1 hour. But you need time to get ready for the test and time to recover. This can take a few hours. What happens after the test? You may be able to go home later the same day. Or you might need to stay in the hospital overnight. Follow-up care is a ramirez part of your treatment and safety. Be sure to make and go to all appointments, and call your doctor if you are having problems. It's also a good idea to keep a list of the medicines you take. Ask your doctor when you can expect to have your test results. Current as of: August 18, 2022 Content Version: 14.0 Care instructions adapted under license by your healthcare professional. If you have questions about a medical condition or this instruction, always ask your healthcare professional. [employer] disclaims any warranty or liability for your use of this information. ?? [id number] [employer]. * H&P - Mei Jackson MD - 11/11/2024 10:30 AM EDT Images from the original note were not included. Subjective Chief complaint Dyspnea, fatigue History Of Present Illness Gi Smith is a 44 y.o. female with PMHx of HFrEF s/t NICM, s/p BIV ICD with gen change 02/13/2024, H/o bilateral PE on Xarelto, gastroparesis, dysphagia, diverticulosis, and T2DM. She reports she was hospitalized for bilateral pulmonary emboli in 2010 and was diagnosed with heart failure at that time. DISPLAYER- D was initially placed 06/14/2017. She follows with cardiology at [facility]. Reports she has done well and not been hospitalized since 2010. She was evaluated in the HF clinic last month where she was noted to have progressive NYHA Class 3-3b symptoms and arranged for RHC +/- LVAD evaluation pending hemodynamic results. Medical/Surgical/Social/Family History I have reviewed and updated the patient history. Travel History Relevant International Travel History: Travel Screening No screening recorded since 11/10/24 0938 Travel History Travel since 10/11/24 No documented travel since 10/11/24 Allergies Prednisone Medications Current Medications[1] Objective Review of Systems Constitutional: Positive for activity change and fatigue. HENT: Negative for congestion. Respiratory: Positive for shortness of breath. Cardiovascular: Positive for chest pain and leg swelling. Negative for palpitations. Gastrointestinal: Positive for abdominal distention. Endocrine: Negative for cold intolerance. Genitourinary: Negative for difficulty urinating. Neurological: Positive for weakness. Negative for dizziness. Physical Exam Constitutional: Appearance: She is obese. HENT: Head: Normocephalic and atraumatic. Cardiovascular: Rate and Rhythm: Normal rate and regular rhythm. Heart sounds: No murmur heard. Pulmonary: Effort: Pulmonary effort is normal. No respiratory distress. Breath sounds: Normal breath sounds. Abdominal: General: Abdomen is flat. There is no distension. Palpations: Abdomen is soft. Musculoskeletal: General: No swelling or tenderness. Right lower leg: No edema. Left lower leg: No edema. Skin: General: Skin is warm and dry. Neurological: General: No focal deficit present. Mental Status: She is alert and oriented to person, place, and time. Last Recorded Vitals Blood pressure 138/81, pulse 92, temperature 36.6 ??C (97.8 ??F), temperature source Oral, resp. rate 9, height 1.6 m (5' 3 ), weight 109 kg (239 lb 10.2 oz), SpO2 95%. Results Review I have reviewed the latest lab and imaging results. Assessment & Plan HFrEF (heart failure with reduced ejection fraction) ([facility]) Plan: Proceed with RHC +/- admission for LVAD evaluation pending hemodynamics results. Medically Ready for Discharge:Anticipated Today [1] No current facility-administered medications for this encounter. * Pre-Sedation Documentation - Mei Jackson MD - 11/11/2024 10:20 AM EDT Images from the original note were not included. CARDIOLOGY SEDATION PRE-PROCEDURAL ASSESSMENT AND SEDATION PLAN OF CARE Indication for procedure: The encounter diagnosis was HFrEF (heart failure with reduced ejection fraction) ([facility]). Planned Procedure: RHC Relevant past medical history: HFrEF due to NICM, obesity Previous problems with surgery, anesthesia or sedation: No Previous family history or problems with anesthesia or sedation: No Relevant Labs: Lab Results Component Value Date CREATININE 0.81 11/16/2020 EGFR >60 11/16/2020 EGFR >60 11/16/2020 Planned Sedation/Anesthesia: Moderate Airway assessment: abnormal Mallampati Score: III (soft and hard palate and base of uvula visible) ASA: ASA 3 - Patient with moderate systemic disease with functional limitations Directed physical examination: Vitals: 11/11/24 1004 BP: 138/81 Pulse: 92 Resp: 9 Temp: 36.6 ??C (97.8 ??F) SpO2: 95% GENERAL: Awake, alert, NAD HEENT: NCAT NECK: No appreciable JVD CARDIAC: Regular rate, regular rhythm, normal S1/S2, no m/r/g, 2+ radial pulses bilaterally PULM: CTAB without increased work of breathing ABD: Soft, NT, ND EXT: Warm and well perfused, no LE edema SKIN: No rashes or lesions NEURO: A&Ox4, moving all extremities spontaneously Benefits, risks and alternatives of procedure and planned sedation have been discussed with the patient and/or their senior outside sales representative. All questions answered and they agree to proceed. documented in this encounter Plan of Treatment Not on file documented as of this encounter Procedures Procedure Name Priority Date/Time Associated Diagnosis Comments POCT CO-OXIMETRY MIXED VENOUS UNSOLICITED RESULTS Routine 11/11/2024 12:00 PM EDT RIGHT HEART CATHETERIZATION Routine 11/11/2024 11:57 AM EDT HFrEF (heart failure with reduced ejection fraction) ([facility]) documented in this encounter Results * (ABNORMAL) POCT Co-Oximetry Mixed Venous (11/11/2024 12:00 PM EDT) POCT Oxyhemoglobin, Mixed Venous 64.9 % 11/11/2024 11:57 AM EDT [facility] Policy Writer ID Makenna Juarez 11/11/2024 11:57 AM EDT [facility]ARE [facility] Device ID [id number] 11/11/2024 11:57 AM EDT [facility] POCT Sample Site PA 11/11/2024 11:57 AM EDT [facility] POCT Total Hemoglobin 10.8(L) 11.2 - 15.7 g/dL 11/11/2024 11:57 AM EDT [facility] 11/11/2024 12:0 0 PM EDT 11/11/2024 11:57 AM EDT us Mei Jackson MD LAB POINT OF CARE TEST DOCKED DEVICE UNSOLICITED RESULTS Final Result [facility] [address] [place], [place] [id number] * RIGHT HEART CATHETERIZATION (11/11/2024 11:57 AM EDT) Anatomical Region Laterality Modality Other Narrative 11/11/2024 2:12 PM EDT Conclusion: 1. Significant respiratory variation likely due to body habitus 2. Mildly elevated central venous pressure 3. 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 Mildly elevated pulmonary artery wedge pressure 5. Preserved/normal CO and CI by both indirect Alexander and TD methods Recommendations: 1. Increase Bumex to 2 mg daily x3 days then back to 1 mg daily 2. Excellent hemodynamics which do not explain patient's degree of fatigue and exercise intolerance. Recommend sleep study to evaluate for MAYELA and referral to cardiac rehabilitation to help promote improved physical activity/tolerance. Discussed obtaining labs (TSH, Vit D etc) via PCP and weight loss to which she was receptive Procedure Details Right Heart Catheterization Attending: Mei Jackson MD Indication for procedure: 44 YO F with HFrEF due to NICM, PE, gastroparesis and morbid obesity presents for RHC due to described NYHA Class 3 symptoms to evaluate hemodynamics. Operative Procedures: Right heart catheterization Access: Right Jugular vein 8 Fr [place] Sheath Procedure: After obtaining consent, the patient was brought into the catheterization laboratory, placed on the table and prepped and draped in a sterile fashion. Next, the skin overlaying the right jugular vein was anesthetized using 1% Lidocaine. Subsequently, utilizing an 18 gauge Cook needle, the right jugular vein was accessed utilizing ultrasound guidance. Using the J-tipped wire included in the access kit, which was inserted through the needle, an 8Fr [place] sheath was inserted over the wire, subsequently blood was aspirated and the sheath was flushed. A 7.5 [place]- Angela catheter was passed through the [place] sheath into the RA, RV and PA chambers along with obtaining measured pressures and PCWP. A small blood sample was obtained from the PA to calculate assumed Alexander cardiac output and index in addition to thermodilution technique. Ultimately, the [place] sheath was withdrawn while the patient was exhaling and 5 minutes of manual pressure was applied to attain hemostasis. The patient was then transferred back to the holding area in stable condition without immediate complications. Post-operative instructions: 20 minute bed rest with monitoring of venous puncture site for bleeding Hemodynamics: BP: 133/91 (105) mmHg RA: 14 mmHg PA: 37/23 (28) mmHg PAWP: 17 mmHg PA sat: 65% Alexander Cardiac Output: 5.6 L/min, Index: 2.7 L/min/m2 Thermodilution Cardiac Output: 6.8 L/min, Index: 3.3 L/min/m2 TP mmHg DP mmHg PVR: 1.6 Wood Units (using TD CO) SVR: 1071 Dynes (using TD CO) Hemodynamic Data Pressures Phase: Resting Right RA Mean: 14 mmHg RV: 37/7 mmHg RV EDP: 17 mmHg Pulmonary PA: 37/23 (28) mmHg PCW Mean: 17.0 mmHg Angel: 1.0 Hemodynamic Data Cardiac Output and Resistance Phase: Resting Thermo CO: 6.8 L/min CI: 3.1 L/min/m2 FRONT END JAVA DEVELOPER: 0.42 W Resistance Thermo PVR: 1.6 SANCHEZ Thermo PVR: 129 (dyne x sec)/cm5 Hemodynamic Data Saturations Phase: Resting Saturations PA: 65 % us Mei Jackson MD CV CARDIAC CATH PROCEDURES Final Result documented in this encounter Visit Diagnoses Diagnosis HFrEF (heart failure with reduced ejection fraction)- Primary HFrEF (heart failure with reduced ejection fraction) documented in this encounter Admitting Diagnoses Diagnosis HFrEF (heart failure with reduced ejection fraction) documented in this encounter Active and Recently Administered Medications Times are shown in EDT. PRN Medication Order 11/10/2024 11/11/2024 11/12/2024 lidocaine (Xylocaine) 1 % injection (CANCELED) As needed, Starting on Sat11/11/24 at 1140, Until Sat11/11/24 at 1203, Routine, Intraprocedure 1140 (Given - Provider: Mei Jackson MD) documented in this encounter Additional Health Concerns Assessment Noted Time A fall risk assessment has been complete d for the patient 10/19/2024 8:34 AM EDT A Body Mass Index follow-up plan has been documented for the patient 11/11/2024 12:20 PM EDT documented as of this encounter Care Teams Extractor Operator Relationship Specialty Start Date End Date Alena Reed APRN [address] [place] [address] PCP - General 10/19/24 documented as of this encounter
--- OUTSIDE RECORDS SUMMARY | 2024-11-11 11:45 | XMS_ITS | Encounter Summary ---
Author Organization Healthcare Address [address] [id number] Care Team Providers Care Cook Room Supervisor Name Role Phone Alena Reed RAZA Primary Care Provider +1- [phone] Reason for Visit * Auth/Cert (Routine) Specialty Diagnoses / Procedures Referred By Ravinder cruz Referred To Contact Diagnoses HFrEF (heart failure with reduced ejection fraction) HFrEF (heart failure with reduced ejection fraction) (CMS/HCC) [I50.20] Procedures [place] RIGHT HEART CATH O2 SATURATION & CARDIAC OUTPUT Right heart catheterization Mei Jackson MD [address] [place] [address] Phone: tel: fax: Cardiac Placement Officer [address] [place] [address] Phone: tel: Referral ID Status Reason Start Date Expiration Date Visits Re quested Visits Authorized [id number] 1 1 Encounter Details Date Type Department Care Team (Late st Contact Info) Description 11/11/2024 11:45 AM EDT - 11/11/2024 1:00 PM EDT Surgery Cardiac Placement Officer [address] [place] [address] Mei Jackson MD [address] [place] [address] Right heart catheterization [71581 (CPT )] Surgery Details Date/Time Status Location OR Service Patient Class Case Class Case Type Trauma Case? 11/11/2024 11:45 AM Posted [facility] AEROSPACE ASSEMBLER CH AEROSPACE ASSEMBLER 01 Cardiovascular [facility] Outpatient Surgery E-Elect laurie Panel 1 Procedure LRB Anes Op Region Wound Class Comments Right heart catheterization N/A PATIENT WILL CALL ONCE SHE HAS SECURED TRANSPORTATION. Surgeon Surgeon Role Service Panel Mei Jackson MD Primary Cardiovascular 1 documented in this encounter Social History Tobacco Use Types Packs/Day Years [...] Will remove IV once dressed. * Neal [facility] - Altaf Garcia RN - 11/11/2024 12:20 PM EDT Images from the original note were not included. [id number] Bleeding or Hematoma After Cardiac Catheterization You [...] on the site, and call [facility]. In [...] provider. Last Reviewed Date: 2024 00:00:00 ?? [id number] [employer]. All rights reserved. This information is not intended as a substitute for professional medical care. Always follow your healthcare professional's instructions. * Neal [facility] - Altaf Garcia RN - 11/11/2024 12:20 PM EDT Images from the original note were not included. [id number] Right Heart Catheterization: About This Test What [...] often in a cardiac catheterization laboratory ( electrical laboratory technician ). You lie on a table [...] this instruction, always ask your healthcare professional. [employer] disclaims any warranty or liability for your use of this information. ?? [id number] [employer]. * H&P - Mei Jackson MD - [...] diagnosed with heart failure at that time. 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 She follows with cardiology at [facility]. Reports she has done well and not [...] HFrEF (heart failure with reduced ejection fraction) ([facility]) Plan: Proceed with RHC +/- admission for [...] HFrEF (heart failure with reduced ejection fraction) (CMS/[facility]). Planned Procedure: RHC Relevant past medical history: [...] been discussed with the patient and/or their product representative. All questions answered and they agree to proceed. documented in this encounter Plan of Treatment Not on file documented as of this encounter Procedures Procedure Name Priority Date/Time Associated Diagnosis Comments POCT CO-OXIMETRY MIXED VENOUS UNSOLICITED RESULTS Routine 11/11/2024 12:00 PM EDT RIGHT HEART CATHETERIZATION Routine 11/11/2024 11:57 AM EDT HFrEF (heart failure with reduced ejection fraction) ([facility]) documented in this encounter Results * (ABNORMAL) POCT Co-Oximetry Mixed Venous (11/11/2024 12:00 PM EDT) POCT Oxyhemoglobin, Mixed Venous 64.9 % 11/11/2024 11:57 AM EDT HEALTHCARE LAB Orthotic Fitter ID Vittitow, Makenna 11/11/2024 11:57 AM EDT HEALTHCARE LAB Device ID [id number] 11/11/2024 11:57 AM EDT HEALTHCARE LAB POCT Sample Site PA 11/11/2024 11:57 AM EDT [facility]ALTH[facility]ARE LAB POCT Total Hemoglobin 10.8(L) 11.2 - 15.7 g/dL 11/11/2024 11:57 AM EDT HEALTHCARE LAB 11/11/2024 12:0 0 PM EDT 11/11/2024 11:57 AM EDT us Mei Jackson MD LAB POINT OF CARE TEST DOCKED DEVICE UNSOLICITED RESULTS Final Result [facility] [address] [place] [address] * RIGHT HEART CATHETERIZATION (11/11/2024 11:57 AM [...] catheterization Access: Right Jugular vein 8 Fr [place] Sheath Procedure: After obtaining consent, the patient [...] was inserted through the needle, an 8Fr [place] sheath was inserted over the wire, subsequently blood was aspirated and the sheath was flushed. A 7.5 Indian [place]- Angela catheter was passed through the [place] sheath into the RA, RV and PA chambers along with obtaining measured pressures and PCWP. A small blood sample was obtained from the PA to calculate assumed Alexander cardiac output and index in addition to thermodilution technique. Ultimately, the [place] sheath was withdrawn while the patient was [...] Thermo CO: 6.8 L/min CI: 3.1 L/min/m2 SURVEILLANCE ANALYST: 0.42 W Resistance Thermo PVR: 1.6 SANCHEZ [...] reduced ejection fraction) documented in this encounter Administered Medications Inactive Administered Medications - up to 3 most recent administrations Medication Order MAR Action Action Date Dose Rate Site lidocaine (Xylocaine) 1 % injection As needed, Starting on Sat11/11/24 at 1140, Until Sat11/11/24 at 1203, Routine, Intraprocedure Given 11/11/2024 11:40 AM EDT 5 mL Right Internal Jugular documented in this encounter Active and Recently [...] documented as of this encounter Care Teams Cook Room Supervisor Relationship Specialty Start Date End Date Alena Reed APRN [address] [id number] PCP - General 10/19/24 documented as of this encounter
--- OUTSIDE RECORDS SUMMARY | 2024-12-07 08:20 | XMS_ITS | Encounter Summary ---
Author Organization Healthcare Address [address] [id number] Care Team Providers Care Clerical Car Checker Name Role Phone Alena Reed RAZA Primary Care Provider +1- [phone] Reason for Referral * Consultation (Routine) - Authorized Specialty Diagnoses / Procedures Referred By Ravinder cruz Referred To Contact Cardiac Rehabilitation Diagnoses HFrEF (heart failure with reduced ejection fraction) Anais Fountain APRN [address] [place] [address] Phone: tel: fax: [facility] Cardiac Rehabilitation [address] [facility], [address] [place] [address] Phone: tel: fax: Referral ID Status Reason Start Date Expiration Date Visits Requested Visits Authorized [id number] Authorized Consult and Treat 12/07/2024 06/08/2026 1 1 Reason for Visit * Reason Comments Follow-up * Consultation (Routine) - Closed Specialty Diagnoses / Procedures Referred By Ravinder cruz Referred To Contact Diagnoses HFrEF (heart failure with reduced ejection fraction) Mei Jackson MD [address] [place] [address] Phone: tel: fax: Referral ID Status Reason Start Date Expiration Date Visits Re quested Visits Authorized [id number] Closed 10/19/2024 04/20/2026 1 1 Encounter Details Date Type Department Care Team ([facility] Contact Info) Description 12/07/2024 8:20 AM EDT Office Visit [facility] [place] [facility] [address] [facility] [place] [address] Mei Jackson MD [address] [place] [address] HFrEF (heart failure with reduced ejection fraction) (Primary Dx); ICD (implantable cardioverter-defibril lator) in place; NICM (nonischemic cardiomyopathy) ([facility]); BMI 40.0-44.9, adult ([facility]); Other fatigue Social History Tobacco Use Types [...] down, depressed, or hopeless Not at all 12/07/2024 8:21 AM EDT Yenny Galeano Patient Health Questionnaire -2 Score 0 12/07/2024 8:21 AM EDT Yenny Galeano * Question Answer Date of Assessment Author Trouble falling or staying a sleep, or sleeping too much Not at all 12/07/2024 8:21 AM EDT Yenny Galeano Feeling tired or having attila le energy Not at all 12/07/2024 8:21 AM EDT Yenny Galeano Poor appetite or overeating Not at all 12/07/2024 8: 21 AM EDT Yenny Galeano Feeling bad about yourself - or that you are a failure or have let yourself or your family down Not at all 12/07/2024 8:21 AM EDT Wiliam Galeano Trouble concentrating on thi ngs, such as reading the newspaper or watching television Not at all 12/07/2024 8:21 AM HET Yenny Galeano Moving or speaking so slowly that other people could have noticed? Or the opposite - being so fidgety or restless that you have been moving around a lot more than usual. Not at all 12/07/2024 8:21 AM HET Yenny Galeano Thoughts that you would be b romeo off or hurting yourself in some way Not at all 12/07/2024 8:21 AM HET Yenny Galeano Patient Health Questionnaire -9 Score 0 12/07/2024 8:21 AM EDT Yenny Galeano * How difficult have these problems made it for you to do your work, take care of things at home, or get along with other people? Answer Date of Assessment Author Not difficult at all 12/07/2024 8:21 AM EDT Yenny Vega documented as of this encounter Miscellaneous Notes * Progress Notes - Anais Fountain APRN - 12/07/2024 8:20 AM EDT Images from [...] diagnosed with heart failure at that time. 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 She follows with cardiology at [facility]. Reports she has done [...] mod-severe global hypokinesis, no significant VHD Catheterizations: [facility] 09/2021: normal coronaries Labs Lab Results [...] Dysphagia / Diverticulosis -follows with GI at [place] Fatigue -Sleep referral placed - she is in [...] Procedure Laterality Date APPENDECTOMY N/A appendectomy from [facility] CARDIAC CATHETERIZATION N/A cardiac catheterization from [facility] CARDIAC PACEMAKER PLACEMENT N/A Pacemaker Placement from [facility] CARPAL TUNNEL RELEASE N/A Carpal tunnel surgery from [facility] CYST REMOVAL ESOPHAGOGASTRODUODENOSCOPY HYSTERECTOMY N/A hysterectomy from [facility] TONSILLECTOMY [3] Current Outpatient Medications Medication Sig [...] documented in this encounter Plan of Treatment Scheduled Referrals Name Type Priority Associated Diagnoses Order Schedule Ambulatory referral to Cardiac Rehab Outpatient Referral Routine HFrEF (heart failure with reduced ejection fraction) 1 Occurrences starting 12/07/2024 until 06/10/2026 documented as of this encounter Visit Diagnoses Diagnosis HFrEF (heart failure with reduced ejection fraction)- Primary ICD (implantable cardioverter-defibrillator) in place NICM (nonischemic cardiomyopathy) ([facility]) BMI 40.0-44.9, adult ([facility]) Other fatigue documented in this encounter Additional Health Concerns Assessment Noted Time PHQ-9 Depression Total Score: 0 12/08/19 8:21 AM EDT A fall risk assessment has been complete d for the patient 12/07/2024 8:21 AM EDT A Body Mass Index follow-up plan has been documented for the patient 12/07/2024 9:11 AM EDT documented as of this encounter Care Teams Clerical Car Checker Relationship Specialty Start Date End Date Alena Reed APRN [address] [place] [address] PCP - General 10/19/24 documented as of this encounter
--- OUTSIDE RECORDS SUMMARY | 2024-12-21 12:56 | XMS_ITS | Encounter Summary ---
Author Organization [email or web address] ([place], [place], [place], [place]) Address [address] [place] [address] Care Team Providers Care Hammerer Name Role Phone Unavailable Primary Care Provider Unavailabl e Encounter Details Date Type Department Care Team (Late st Contact Info) Description 04/08/2018 Transcribed Document [facility] Family [facility] [place] [address] ProviderSommer MD [address] [place] [address] Social History Tobacco Use Types Packs/Day Years Used Date Smoking Tobacco: Never Assessed Comments Unknown Sex and Gender Information Value Date Recorded Sex Assigned at Not on file Legal Sex Female 1:18 PM CDT Gender Identity Not on file Sexual Orientation Not on file documented as of this encounter Miscellaneous Notes * Cerner Conversion Note - Sommer ProviderMD - 04/08/2018 1:21 PM [address] [address] [facility] [place] [address] Patient Copy Patient Information: Name: GI CRUZ Current Date: 04/08/2018 13:21:48 : 1980 Patient Address: [address] [place] [id number] Patient Attending Physician: YASMANY NEVAREZ MD-ORT Primary Care Provider: RUSS KAN [facility] Primary Care Provider Discharge Diagnosis: Weight on Admission: 251 lb, 0 oz Comment: Follow-up Instructions: With: Address: When: YASMANY NEVAREZ [address] [place] [address], [address] [place] [address] Business (1) Within 1 to [...] any): Final Medication List: Other Medications biotin [address] Oral Every Day. carvedilol (carvedilol 25 mg [...] and water are not available, use hand movie editor. ? Change your dressing as told by [...] even if your condition improves. ??? Take upjk-bjk-yrnvorg and prescription medicines only as told by [...] 08/31/2005 Document Revised: 10/19/2016 Document Reviewed: 08/29/2016 [employer] Interactive Patient Education ? 2017 [employer] What You Need to Know About [...] 01/30/2010 Document Revised: 10/04/2016 Document Reviewed: 10/19/2015 [employer] Interactive Patient Education ? 2017 [employer] Myelogram, Care After Introduction Refer to [...] by your health care provider. ??? Take ntge-twv-iksecmo and prescription medicines only as told by [...] are taking, including vitamins, herbs, eyedrops, and hwtt-set-sqxhvwr medicines and creams. ??? Previous problems you [...] 10/04/2004 Document Revised: 03/04/2015 Document Reviewed: 11/24/2015 [employer] Interactive Patient Education ? 2017 [employer] CIGARETTE SMOKING: The facts are clear, cigarette smoking will shorten your life. Smoking can cause many illnesses along the way. As a healthcare provider, we recommend that you stop smoking. Assistance with quitting is available by contacting 6-997-JYEQ-NOW. This is a free resource providing counseling, [...] Be sure to sign up for the [employer] patient portal, which gives you 17/09 access to your medical information ??? including these discharge instructions ??? using your computer, smartphone, or tablet. Just go to [employer] to get started. Questions? Call . [facility] would like to thank you for allowing us to assist you with your healthcare needs. NANCY Trujillo RACHEL A, (or dermatology sales representative) have received the above patient education materials/instructions and have verbalized understanding: Patient Signature _ Date/Time Patient Motion Picture Projectionist Signature (if needed) Date/Time Clinician/Hospital Motion Picture Projectionist Signature (if needed) Date/Time documented in this encounter Plan of Treatment Not on file documented as of this encounter Visit Diagnoses Not on filedocumented in this encounter
--- OUTSIDE RECORDS SUMMARY | 2024-12-21 12:56 | XMS_ITS | Encounter Summary ---
Author Organization [employer] ([place], [place], [place], [place]) Address [address] [place] [address] Care Team Providers Care Old Testament Professor Name Role Phone Unavailable Primary Care Provider Unavailabl e Encounter Details Date Type Department Care Team (Late st Contact Info) Description 04/08/2018 Transcribed Document [facility] [place] [facility] [place] [place] [address] ProviderSommer MD [address] [place] [address] Social History Tobacco Use Types Packs/Day Years Used Date Smoking Tobacco: Never Assessed Comments Unknown Sex and Gender Information Value Date Recorded Sex Assigned at Not on file Legal Sex Female 1:18 PM CDT Gender Identity Not on file Sexual Orientation Not on file documented as of this encounter Miscellaneous Notes * Cerner Conversion Note - Sommer ProviderMD - 04/08/2018 8:35 AM SEWER PIPE LAYER HELPER PAT / Pre Procedure Adult Entered On: 04/08/2018 8:43 EST Performed On: 04/08/2018 8:35 EST by LY LIMA RN General Info Arrived From : Home Mode of Arrival on Unit : Ambulatory Patient Arrival Date/Time : 04/08/2018 8:05 EST Legal Guardian : Spouse Support Person/Pt Rep Name : MAR- Support Person/Pt Rep Contact Information : [phone] Want Family/Rep/Phys Notified of Admit : No Emergency Contact #1 : NA Emergency Contact #1 Phone Number : NA Emergency Contact #1 Relationship : NA Emergency Contact #2 : NA Emergency Contact #2 Phone Number : NA Emergency Contact #2 Relationship : NA Information Obtained From : Patient Primary Language : Norwegian Communication Barrier : None LY LIMA RN - 04/08/2018 8:35 EST Height and Weight, Clinical Dosing Height Source : Stated Height Entry Format : [place] Height, Feet : 5 ft(Converted to: 152 cm, 60 Inch) Height, Inches : 3 Inch(Converted to: 0 ft 3 Inch, 7.62 cm) Clinical Height : 160.02 cm Weight Source : Standing scale Weight Entry Format : [place] Clinical Dosing Weight : 114.09 kg Weight, Pounds : 251 lb Body Surface Area (BSA) : 2.13 m2 Body Mass Index : 44.6 kg/m2 (>HHI) [place] Body Weight : 52 kg LY LIMA [...] Scale Risk Level : 25-45 Medium Risk [place] Fall Interventions : Adequate lighting, Assistive devices [...]
--- OUTSIDE RECORDS SUMMARY | 2024-12-21 12:56 | XMS_ITS | Encounter Summary ---
Author Organization [facility] ystem Address [address] [place] [address] Care Team Providers Care Telephone Answering Service Operator Name Role Phone Unavailable Primary Care Provider Unavailabl e Encounter Details Date Type Department Care Team (Late st Contact Info) Description 03/02/2013 Conversion Encounter [facility] HISTORICAL CONV [address] [place] [address] Interface, See Report Social History [...] See Report - 03/02/2013 12:00 AM EST [facility] [address] [place] [address] Patient: JOYCELYN CRUZ MR #: [id number] : 1980 Date of Visit: 03/02 Referring Physician: Dictated By: Malcolm Nuñez MD Diagnosis: AUB FIBROIDS MORBID OBESITY H/O PULMONARY EMBOLI ( COUMADIN) Allergies: NKDA History of present illness: AUB SINCE 1998. SHE WENT 2 YRS WITH AMENORRHEA. SHE WENT TO DR. WOODS IN [place]. HE PUT HER ON BCP. HER MENSES [...]
--- OUTSIDE RECORDS SUMMARY | 2024-12-21 12:56 | XMS_ITS | Clinical Summary ---
Author Organization [facility] ystem Address [address] [place] [address] Care Team Providers Care Cash Checker Name Role Phone Unavailable Primary Care Provider [...]
--- OUTSIDE RECORDS SUMMARY | 2024-12-21 12:56 | XMS_ITS | Encounter Summary ---
Author Organization Healthcare Address [address] [id number] Care Team Providers Care Life Enrichment Assistant Name Role Phone Eric Caraballo MD Primary Care Provider [phone] Alena Reed APRN Primary Care Provider [phone] Encounter Details Date Type Department Care Team (Late st Contact Info) Description 11/18/2023 Orders Only External Location [address] [place] [address] Candice Rebollar APRN [address] [place] [address] Social History Tobacco Use Types Packs/Day Years [...] as of this encounter Plan of Treatment Not on [...] documented as of this encounter Care Teams Life Enrichment Assistant Relationship Specialty Start Date End Date Eric Caraballo MD [address] [place] [address] PCP - General 07/08/20 10/18/24 Alena Reed APRN [address] [place] [address] PCP - General 10/19/24 documented as of this encounter
--- OUTSIDE RECORDS SUMMARY | 2024-12-21 12:56 | XMS_ITS | Encounter Summary ---
Author Organization [email or web address] ([place], [place], [place], [place]) Address [address] [place] [address] Care Team Providers Care Fruit Thinner Machine Operator Name Role Phone Unavailable Primary Care Provider Unavailabl e Encounter Details Date Type Department Care Team (Late st Contact Info) Description 04/08/2018 Transcribed Document [facility] [place] [facility] [place] [address] ProviderSommer MD [address] [place] [address] Social History Tobacco Use Types Packs/Day Years Used Date Smoking Tobacco: Never Assessed Comments Unknown Sex and Gender Information Value Date Recorded Sex Assigned at Not on file Legal Sex Female 1:18 PM CDT Gender Identity Not on file Sexual Orientation Not on file documented as of this encounter Miscellaneous Notes * Cerner Conversion Note - Sommer ProviderMD - 04/08/2018 2:35 PM PHARMACOEPIDEMIOLOGIST [address] , [place] [address] Patient Copy Patient Information: Name: GI CRUZ Current Date: 04/08/2018 14:35:16 : 1980 Patient Address: [address] [place] [id number] Patient Attending Physician: YASMANY NEVAREZ MD-ORT Primary Care Provider: RUSS KAN MD-[facility] Primary Care Provider Discharge Diagnosis: Weight on Admission: 251 lb, 0 oz Comment: Follow-up Instructions: With: Address: When: YASMANY NEVAREZ [address] [place] [address], [address] [place] [address] Business (1) Within 1 to [...] any): Final Medication List: Other Medications biotin 18398 Oral Every Day. carvedilol (carvedilol 25 mg [...] and water are not available, use hand hospice fellow. ? Change your dressing as told by [...] even if your condition improves. ??? Take qxcw-tke-zogrqpd and prescription medicines only as told by [...] 08/31/2005 Document Revised: 10/19/2016 Document Reviewed: 08/29/2016 [employer] Interactive Patient Education ? 2017 [employer]. What You Need to Know About [...] 01/30/2010 Document Revised: 10/04/2016 Document Reviewed: 10/19/2015 [employer] Interactive Patient Education ? 2017 [employer]. Myelogram, Care After Introduction Refer to [...] by your health care provider. ??? Take cmvt-zaj-tfwzujz and prescription medicines only as told by [...] are taking, including vitamins, herbs, eyedrops, and ugqq-jfj-xkdlzyz medicines and creams. ??? Previous problems you [...] 10/04/2004 Document Revised: 03/04/2015 Document Reviewed: 11/24/2015 [employer] Interactive Patient Education ? 2017 [employer]. CIGARETTE SMOKING: The facts are clear, cigarette smoking will shorten your life. Smoking can cause many illnesses along the way. As a healthcare provider, we recommend that you stop smoking. Assistance with quitting is available by contacting 8-537-KOOX-NOW. This is a free resource providing counseling, [...] Be sure to sign up for the [employer] patient portal, which gives you 17/09 access to your medical information ??? including these discharge instructions ??? using your computer, smartphone, or tablet. Just go to [employer] to get started. Questions? Call . [facility] would like to thank you for allowing us to assist you with your healthcare needs. NANCY Trujillo RACHEL A, (or call center support representative) have received the above patient education materials/instructions and have verbalized understanding: Patient Signature _ Date/Time Patient Lead Burner Supervisor Signature (if needed) Date/Time Clinician/Hospital Lead Burner Supervisor Signature (if needed) Date/Time documented in this encounter Plan of Treatment Not on file documented as of this encounter Visit Diagnoses Not on filedocumented in this encounter
--- OUTSIDE RECORDS SUMMARY | 2024-12-21 12:56 | XMS_ITS | Encounter Summary ---
Author Organization [employer] ([place], [place], [place], [place]) Address [address] [place] [address] Care Team Providers Care Production Bow Maker Name Role Phone Unavailable Primary Care Provider Unavailabl e Encounter Details Date Type Department Care Team (Late st Contact Info) Description 04/08/2018 Transcribed Document [facility] [place] [facility] [place] [address] ProviderSommer MD [address] [place] [address] Social History Tobacco Use Types [...] Sommer Karimi MD - 04/08/2018 1:21 PM SINGER BACK TENDER Patient Education Materials Follows: Incision Care, Adult [...] and water are not available, use hand resident care coordinator. ? Change your dressing as told [...] even if your condition improves. ??? Take ckfw-ofv-fowsbls and prescription medicines only as told by [...] 08/31/2005 Document Revised: 10/19/2016 Document Reviewed: 08/29/2016 [employer] Interactive Patient Education ? 2017 [employer]. Inc. Orthopedics Myelogram, Care After Introduction Refer [...] by your health care provider. ??? Take qxnr-jgy-idhcyqw and prescription medicines only as told by [...] are taking, including vitamins, herbs, eyedrops, and dfbi-mbb-jxyhocz medicines and creams. ??? Previous problems you [...] 10/04/2004 Document Revised: 03/04/2015 Document Reviewed: 11/24/2015 [employer] Interactive Patient Education ? 2017 [employer]. Radiology What You Need to Know About [...] 01/30/2010 Document Revised: 10/04/2016 Document Reviewed: 10/19/2015 [employer] Interactive Patient Education ? 2017 [employer]. Inc. documented in this encounter Plan of Treatment Not on file documented as of this encounter Visit Diagnoses Not on filedocumented in this encounter
--- OUTSIDE RECORDS SUMMARY | 2024-12-21 12:56 | XMS_ITS | Encounter Summary ---
Author Organization [employer] ([place], [place], [place], [place]) Address [address] [place] [address] Care Team Providers Care Crusher Machine Operator Name Role Phone Unavailable Primary Care Provider Unavailabl e Encounter Details Date Type Department Care Team (Late st Contact Info) Description 04/08/2018 Transcribed Document [facility] [place] [facility] [place] [address] ProviderSommer MD [address] [place] [address] Social History Tobacco Use Types Packs/Day Years Used Date Smoking Tobacco: Never Assessed Comments Unknown Sex and Gender Information Value Date Recorded Sex Assigned at Not on file Legal Sex Female 1:18 PM CDT Gender Identity Not on file Sexual Orientation Not on file documented as of this encounter Miscellaneous Notes * Cerner Conversion Note - Sommer ProviderMD - 04/08/2018 8:23 AM DIETARY SERVICES DIRECTOR [address] [place] [address] [facility] [place] [address] Patient Copy Patient Information: Name: GI CRUZ Current Date: 04/08/2018 08:23:47 : 1980 Patient Address: [address] [place] [phone] Patient Attending Physician: YASMANY NEVAREZ MD-ORT Primary Care Provider: RUSS KAN MD-[facility] Primary Care Provider Discharge Diagnosis: Comment: Follow-up Instructions: With: Address: When: YASMANY NEVAREZ [address] [facility], [address] [place] [address] Business (1) Within 1 to 2 weeks Comments: DIRECTED. BRING CD DISC TO APPT Type Location Start Finish State CR [facility]30 AM 10:[address] [facility] CT 10:00 AM 10:30 AM [...] and water are not available, use hand maid cleaning cooking. ? Change your dressing as told by [...] even if your condition improves. ??? Take rydg-zhb-sachiqa and prescription medicines only as told by [...] 08/31/2005 Document Revised: 10/19/2016 Document Reviewed: 08/29/2016 [employer] Interactive Patient Education ? 2017 [employer] Inc. What You Need to Know About [...] 01/30/2010 Document Revised: 10/04/2016 Document Reviewed: 10/19/2015 [employer] Interactive Patient Education ? 2017 [employer]. Myelogram, Care After Introduction Refer to [...] by your health care provider. ??? Take wsce-svk-cogzcsu and prescription medicines only as told by [...] are taking, including vitamins, herbs, eyedrops, and gzve-yky-uqvhsrw medicines and creams. ??? Previous problems you [...] 10/04/2004 Document Revised: 03/04/2015 Document Reviewed: 11/24/2015 [employer] Interactive Patient Education ? 2017 [employer] Inc. CIGARETTE SMOKING: The facts are clear, cigarette smoking will shorten your life. Smoking can cause many illnesses along the way. As a healthcare provider, we recommend that you stop smoking. Assistance with quitting is available by contacting 5-735-VDLX-NOW. This is a free resource providing counseling, [...] Be sure to sign up for the [employer] patient portal, which gives you 17/09 access to your medical information ??? including these discharge instructions ??? using your computer, smartphone, or tablet. Just go to [employer] to get started. Questions? Call . [facility] would like to thank you for allowing us to assist you with your healthcare needs. NANCY Trujillo RACHEL A, (or novelties sales representative) have received the above patient education materials/instructions and have verbalized understanding: Patient Signature _ Date/Time Patient Culture Media Laboratory Assistant Signature (if needed) Date/Time Clinician/Hospital Culture Media Laboratory Assistant Signature (if needed) Date/Time Electronically signed by Selena Kim Conversion Laser Beam Color Scanner Operator Cerner at 06/14/2022 3:09 PM CDT documented in this encounter Plan of Treatment Not on file documented as of this encounter Visit Diagnoses Not on filedocumented in this encounter
--- OUTSIDE RECORDS SUMMARY | 2024-12-21 12:56 | XMS_ITS | Encounter Summary ---
Author Organization [employer] ([place], [place], [place], [place]) Address [address] [place] [address] Care Team Providers Care Certified Athletic Trainer Name Role Phone Unavailable Primary Care Provider Unavailabl e Encounter Details Date Type Department Care Team (Late st Contact Info) Description 04/08/2018 Transcribed Document [facility] [place] Family Medicine [address] [place] [address] ProviderSommer MD [address] [place] [id number] Social History Tobacco Use Types Packs/Day Years Used Date Smoking Tobacco: Never Assessed Comments Unknown Sex and Gender Information Value Date Recorded Sex Assigned at Not on file Legal Sex Female 1:18 PM CDT Gender Identity Not on file Sexual Orientation Not on file documented as of this encounter Miscellaneous Notes * Cerner Conversion Note - Sommer ProviderMD - 04/08/2018 11:14 AM REFUELING RAMPMAN Patient: GI CRUZ Age: 37 years Sex: [...]
--- OUTSIDE RECORDS SUMMARY | 2024-12-21 12:56 | XMS_ITS | Referral Summary ---
Author Organization [employer] ([place], [place], [place], [place]) Address [address] [place] [address] Care Team Providers Care Pool Servicer Name Role Phone Unavailable Primary Care Provider [...]
--- OUTSIDE RECORDS SUMMARY | 2024-12-21 12:57 | XMS_ITS | Encounter Summary ---
Author Organization [employer] ([place], [place], [place], [place]) Address [address] [place] [address] Care Team Providers Care Claims Adjudicator Name Role Phone Unavailable Primary Care Provider Unavailabl e Encounter Details Date Type Department Care Team (Late st Contact Info) Description 04/08/2018 Transcribed Document [facility] [place] [facility] [place] [address] ProviderSommer MD [address] [place] [address] Social History Tobacco Use Types Packs/Day Years Used Date Smoking Tobacco: Never Assessed Comments Unknown Sex and Gender Information Value Date Recorded Sex Assigned at Not on file Legal Sex Female 1:18 PM CDT Gender Identity Not on file Sexual Orientation Not on file documented as of this encounter Miscellaneous Notes * Cerner Conversion Note - Sommer ProviderMD - 04/08/2018 8:22 AM PHARMACEUTICAL SALES REPRESENTATIVE Discharge Instructions Entered On: 04/08/2018 8:23 EST [...] 04/08/2018 8:22 EST Electronically signed by Julio [facility] Conversion Litigation Legal Assistant Cerner at 06/14/2022 2:54 PM CDT documented in this encounter Plan of Treatment Not on file documented as of this encounter Visit Diagnoses Not on filedocumented in this encounter
--- OUTSIDE RECORDS SUMMARY | 2024-12-21 12:57 | XMS_ITS | Clinical Summary ---
Author Organization [employer] ([place], [place], [place], [place]) Address [address] [place] [address] Care Team Providers Care Wireless Network Engineer Name Role Phone Unavailable Primary Care [...]
--- OUTSIDE RECORDS SUMMARY | 2024-12-21 12:57 | XMS_ITS | Encounter Summary ---
Author Organization [facility] ystem Address [address] [place] [address] Care Team Providers Care Optics Engineer Name Role Phone Unavailable Primary Care Provider Unavailabl e Encounter Details Date Type Department Care Team (Late st Contact Info) Description 03/19/2013 Conversion Encounter [facility] HISTORICAL CONV [address] [place] [address] Interface, See Report Social History [...] See Report - 03/19/2013 6:19 AM EST [place] [address] DISCHARGE SUMMARY PATIENT NAME: GI CRUZ [address] [facility] NO: [id number] DATE OF : 1980 DATE OF ADMISSION: [...] and was seen by Dr. Sun in [place] who put her on oral contraceptive pills. The patient continued to have irregular menses and was later seen in [place] where a transvaginal ultrasound was performed showing [...] to do in Dr. Caraballo' office in [place]. Dr. Eric Caraballo in [place], [place] is her family medicine doctor who [...] physician, which is Dr. Eric Caraballo in [place], [place], who has previously been following her PT and INR and making adjustments with her Coumadin. The patient is aware that she will need to follow-up with him in one week. 3. The patient will have her PT and INR drawn on 03/23/2013. Syl Carlin, OB Resident* Dictating for: Jose Jc M.D. AB/HE/margie Voice Rec. ID #[id number] Voice Original ID #[id number] Doc ID #[id number] Rev. #0 cc: Jose Jc M.D.* Eric Caraballo M.D.* DO NOT TEXT EDIT THIS LINE :CDS:862: Authenticated by JOSE JC MD On 04/27/2013 09:58:46 AM Authenticated by JOSE JC MD On 04/28/2013 01:24:21 PM documented in this encounter OR Notes * Op Note - Interface, See Report - 03/19/2013 6:19 AM EST [place] [address] OPERATIVE REPORT PATIENT NAME: GI CRUZ [address] [facility] NO: [id number] DATE OF : 1980 DATE OF OPERATION: [...] She then went to Dr. Sun in [place] who put her on oral contraceptive pills. Her menses were still irregular. The patient then was seen in [place] for similar complaints. The patient was started [...] with definitive therapy. SURGEON: Jose Jc M.D. CAR MECHANIC: Syl Carlin M.D., Resident ANESTHESIA: General endotracheal. [...] transitioned to dorsal lithotomy position using the [facility] stirrups. The patient was then [...] was made hemostatic with 4-0 Vicryl in pycfmg-ai-kgmpb fashion X2. Also, there was a small [...] Carlin M.D., Resident ED/AB/rxmjh Voice Rec. ID #[id number] Original Voice Rec. ID #[id number] Doc ID #[id number] Revision Count: 0 cc: Jose Jc M.D.* <start header> [place] [address] OPERATIVE REPORT PATIENT NAME: GI CRUZ 1 [facility] NO: [id number] DATE OF : 1980 <end header> DO NOT TEXT EDIT THIS LINE :ELECTRICAL DESIGNER DRAFTER:[id number]: Authenticated by JOSE JC MD On 03/19/2013 [...] EST) PTT 29 24 - 31 Seconds [facility] Comment: US by IF @ 03/20/2013 09:23 PTT = The equivalent PTT values for the therapeutic range of heparin levels at 0.3 to 0.5 U/ml are 45 to 60 seconds. PTT = The equivalent PTT values for the therapeutic range of heparin levels at 0.3 to 0.5 U/ml are 45 to 60 seconds. Blood specimen (specimen) 03/20/2013 8:51 AM EST Narrative [facility] - 03/20/2013 9:23 AM EST Specimen Type: Blood us Jose Jc MD LAB BLOOD ORDERABLES Final Result [facility] [address] [place] [address], * Protime-INR (03/20/2013 8:51 AM EST) Protime 11.5 9.6 - 11.5 Seconds [facility] INR 1.07 [facility] Comment: US by IF @ 03/20/2013 09:23 Therapeutic Ranges for INR: 2.0-3.0 (PT 20-30) 2.5-3.5 (PT 25-34) Blood specimen (specimen) 03/20/2013 8:51 AM EST Narrative [facility] - 03/20/2013 9:23 AM EST Specimen Type: Blood Jose Jc MD LAB BLOOD ORDERABLES Final Result [facility] [address] [place] [address], * (ABNORMAL) Basic metabolic panel (03/20/2013 6:00 AM EST) Glucose 134(H) 70 - 100 mg/dL [facility] BUN 10 6 - 20 mg/dL [facility] Creatinine 0.8 0.6 - 1.3 mg/dL [facility] Sodium 136 136 - 145 mmol/L [facility] Potassium 3.6 3.4 - 5.4 mmol/L [facility] Chloride 100 98 - 107 mmol/L [facility] CO2 26 20 - 31 mmol/L [facility] Calcium 9.2 8.7 - 10.4 mg/dL [facility] Est GFR by Clearance 88 ml/min/1.7 32 [facility] Comment: DF by IF @ 03/20/2013 06:43 National Kidney Foundation Guidelines Stage Description GFR 1 Normal or High 90+ 2 Mild decrease 60-89 3 Moderate decrease 30-59 4 Severe decrease 15-29 5 Kidney failure <15 Anion Gap 9 3 - 11 mmol/L [facility] Blood specimen (specimen) 03/20/2013 6:00 AM EST Narrative [facility] - 03/20/2013 7:02 AM EST Specimen Type: Blood us Syl C Carlin DO LAB BLOOD ORDERABLES Final R esult Performing Organization Address [facility] [place] [address], * (ABNORMAL) CBC (No diff) (03/20/2013 6:00 AM EST) WBC 16.92(H) 3.50 - 10.80 [facility] RBC 4.28 3.89 - 5.14 /[facility] Hemoglobin 11.6 11.5 - 15.5 g/dL [facility] Hematocrit 35.4 34.5 - 44.0 % [facility] MCV 82.7 80.0 - 99.0 fL [facility] MCH 27.1 27.0 - 31.0 pg [facility] MCHC 32.8 32.0 - 36.0 g/dL [facility] RDW-CV 14.1 11.3 - 14.5 % [facility] Platelets 332 150 - 450 [facility] Blood specimen (specimen) 03/20/2013 6:00 AM EST [facility] - 03/20/2013 6:22 AM EST Specimen Type: Blood Syl Carlin DO LAB BLOOD ORDERABLES Final R esult Performing Organization Address City/[facility] Co de Phone Number [facility] [address] [place] [address], * Converted Surgical Pathology (03/19/2013 6:19 AM EST) 03/19/2013 6:19 AM EST [facility] - 03/20/2013 12:46 [place] [address] SURGICAL PATHOLOGY REPORT Patient Name: GI CRUZ MR#: [id number] : 1980 Gender: F Ordering Physician: JOSE [...] nodule measuring 2.3 cm in greatest dimension. Systems Integration Manager sections are submitted. Summary of sections: A - frozen section residue; B - anterior and posterior cervix; C-D - anterior endomyometrium; E-F - posterior endomyometrium; G - intramural nodule. M/sk Microscopic Description Sections show secretory endometrium with intraluminal secretions. 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 No other abnormalities are noted. JFJ/sk Previous Pertinent History [id number], 12/15/12: ENDOMETRIUM, BIOPSY: Negative for endometrial functionalis. Abundant endocervical type epithelium. (FLP) [id number],12/08/12: PAP SMEAR: Negative for intraepithelial lesion or malignancy. (PCL) Procedures/Addenda us See Report Interface PATHOLOGY/CYTOLOGY ORDERABL ES Final Result Performing Organization Address [facility]/[place] [address], * SCANNED EKG (03/19/2013) [facility] ECG ORDERABLES Final Result * (ABNORMAL) APTT (03/18/2013 10:40 AM EST) PTT 37(H) 24 - 31 Seconds [facility] Comment: US by IF @ 03/18/2013 11:21 PTT = The equivalent PTT values for the therapeutic range of heparin levels at 0.3 to 0.5 U/ml are 45 to 60 seconds. PTT = The equivalent PTT values for the therapeutic range of heparin levels at 0.3 to 0.5 U/ml are 45 to 60 seconds. Blood specimen (specimen) 03/18/2013 10:40 AM EST Narrative [facility] - 03/18/2013 11:21 AM EST Specimen Type: Blood Jose Jc MD LAB BLOOD ORDERABLES Final Result Performing Organization Address [facility] [place] [address], * (ABNORMAL) Protime-INR (03/18/2013 10:40 AM EST) Protime 12.5(H) 9.6 - 11.5 Seconds [facility] INR 1.16 [facility] Comment: US by IF @ 03/18/2013 11:21 Therapeutic Ranges for INR: 2.0-3.0 (PT 20-30) 2.5-3.5 (PT 25-34) Blood specimen (specimen) 03/18/2013 10:40 AM EST Narrative [facility] - 03/18/2013 11:21 AM EST Specimen Type: Blood Jose Jc MD LAB BLOOD ORDERABLES Final Result [facility] [address] [place] [address], * hCG, quantitative, (03/18/2013 10:40 AM EST) HCG Quantitative <5.0 mIU/mL [facility] Comment: DF by IF @ 03/18/2013 11:23 HCG Expected Values: Non females less than 5 mIU/mL Males less than 5 mIU/mL 0-1 Weeks Gestation 5-50 1-2 Weeks Gestation 50-500 2-3 Weeks Gestation 100-5000 3-4 Weeks Gestation [phone] 4-5 Weeks Gestation [phone] 5-6 Weeks Gestation [id number] 6-8 Weeks Gestation [id number] 2-3 Months Gestation [id number] Note: If a value is between 5-25 mIU/mL recommend repeat testing and clinical correlation. Blood specimen (specimen) 03/18/2013 10:40 AM EST [facility] - 03/18/2013 11:23 AM EST Specimen Type: Blood Jose Jc MD LAB BLOOD ORDERABLES Final Result Performing Organization Address [facility] Co de Phone Number [facility] [address] [place] [address], * Type and screen (03/18/2013 10:40 AM EST) ABORh O Rh Positive [facility] Antibody Screen Negative [facility] Blood specimen (specimen) 03/18/2013 10:40 AM EST [facility] - 03/18/2013 11:49 AM EST Specimen Type: Blood Jose Jc MD BLOOD BANK TEST ORDERABLES Final Result Performing Organization Address City/[facility]/ZIP Co de Phone Number [facility] [address] [place] [address], * (ABNORMAL) Comprehensive metabolic panel (03/18/2013 10:40 AM EST) Glucose 86 70 - 100 mg/dL [facility] BUN 11 6 - 20 mg/dL [facility] Creatinine 0.6 0.6 - 1.3 mg/dL [facility] Sodium 139 136 - 145 mmol/L [facility] Potassium 3.9 3.4 - 5.4 mmol/L [facility] Chloride 102 98 - 107 mmol/L [facility] CO2 28 20 - 31 mmol/L [facility] Calcium 9.8 8.7 - 10.4 mg/dL [facility] Alkaline Phosphatase 126(H) 25 - 100 Units/L [facility] AST (SGOT) 28 8 - 33 Units/L [facility] ALT (SGPT) 38 7 - 40 Units/L [facility] Total Bilirubin 0.7 0.3 - 1.2 mg/dL [facility] Total Protein 8.4(H) 6.4 - 8.3 g/dL [facility] Albumin 4.6 3.4 - 4.8 g/dL [facility] eGFR 126 ml/min/1.7 32 [facility] Comment: DF by IF @ 03/18/2013 11:23 National Kidney Foundation Guidelines Stage Description GFR 1 Normal or High 90+ 2 Mild decrease 60-89 3 Moderate decrease 30-59 4 Severe decrease 15-29 5 Kidney failure <15 Anion Gap 9 3 - 11 mmol/L [facility] Blood specimen (specimen) 03/18/2013 10:40 AM EST Narrative [facility] - 03/18/2013 11:23 AM EST Specimen Type: Blood us Jose Jc MD LAB BLOOD ORDERABLES Final Result [facility] [address] [place] [address], * (ABNORMAL) CBC and Differential (03/18/2013 10:40 AM EST) WBC 10.75 3.50 - 10.80 [facility] RBC 5.03 3.89 - 5.14 [facility] Hemoglobin 13.4 11.5 - 15.5 g/dL [facility] Hematocrit 41.2 34.5 - 44.0 % [facility] MCV 81.9 80.0 - 99.0 fL [facility] MCH 26.6(L) 27.0 - 31.0 pg [facility] MCHC 32.5 32.0 - 36.0 g/dL [facility] RDW-CV 13.7 11.3 - 14.5 % [facility] Platelets 372 150 - 450 [facility] Neutrophils Absolute 7.20 1.50 - 8.30 [facility] Lymphocytes Absolute 2.43 0.60 - 4.80 [facility] Monocytes Absolute 0.76 0.00 - 1.00 [facility] Eosinophils Absolute 0.29 0.10 - 0.30 [facility] Basophils Absolute 0.03 0.00 - 0.20 [facility] Neutrophil Rel % 66.9 41.0 - 71.0 % [facility] Lymphocyte Rel % 22.6(L) 24.0 - 44.0 % [facility] Monocyte Rel % 7.1 0.0 - 12.0 % [facility] Eosinophil Rel % 2.7 0.0 - 3.0 % [facility] Basophil Rel % 0.3 0.0 - 1.0 % [facility] Immature Granulocyte Rel % 0.4 0.0 - 0.6 % [facility] Blood specimen (specimen) 03/18/2013 10:40 AM EST Narrative [facility] - 03/18/2013 11:06 AM EST Specimen Type: Blood us Jose Jc MD LAB BLOOD ORDERABLES Final Result Performing Organization Address City/State/[facility] Co de Phone Number [facility] [place] [address], documented in this encounter Visit Diagnoses Not on filedocumented in this encounter
--- OUTSIDE RECORDS SUMMARY | 2024-12-21 12:57 | XMS_ITS | Encounter Summary ---
Author Organization [facility] ([place], [place], [place], [place]) Address [address] [place] [address] Care Team Providers Care Loom Control Chain Builder Name Role Phone Unavailable Primary Care Provider Unavailabl e Encounter Details Date Type Department Care Team (Late st Contact Info) Description 04/08/2018 Transcribed Document [facility] Family Medicine [facility] [place] [address] ProviderSommer MD [address] [place] [address] Social History Tobacco Use Types Packs/Day Years Used Date Smoking Tobacco: Never Assessed Comments Unknown Sex and Gender Information Value Date Recorded Sex Assigned at Not on file Legal Sex Female 1:18 PM CDT Gender Identity Not on file Sexual Orientation Not on file documented as of this encounter Miscellaneous Notes * Cerner Conversion Note - Sommer ProviderMD - 04/08/2018 1:57 PM BOARD MILL SUPERVISOR [place] [address] [facility] [place] [address] Patient Copy Patient Information: Name: GI CRUZ Current Date: 04/08/2018 13:57:07 : 1980 Patient Address: [address] [place] [id number] Patient Attending Physician: YASMANY NEVAREZ MD-ORT Primary Care Provider: [facility] Primary Care Provider Discharge Diagnosis: Weight on Admission: 251 lb, 0 oz Comment: Follow-up Instructions: With: Address: When: YASMANY NEVAREZ [address] [place] [address], [address] [place] [address] Business (1) Within 1 to [...] any): Final Medication List: Other Medications biotin [address] Oral Every Day. carvedilol (carvedilol 25 mg [...] and water are not available, use hand facilities maintenance worker. ? Change your dressing as told [...] even if your condition improves. ??? Take ezmq-fzl-rscihyj and prescription medicines only as told by [...] 08/31/2005 Document Revised: 10/19/2016 Document Reviewed: 08/29/2016 [employer] Interactive Patient Education ? 2017 [employer] What You Need to Know About [...] 01/30/2010 Document Revised: 10/04/2016 Document Reviewed: 10/19/2015 [employer] Interactive Patient Education ? 2017 [employer] Myelogram, Care After Introduction Refer to [...] by your health care provider. ??? Take yadj-xlt-haghqiz and prescription medicines only as told by [...] are taking, including vitamins, herbs, eyedrops, and tmkw-wsz-lsiqbhy medicines and creams. ??? Previous problems you [...] 10/04/2004 Document Revised: 03/04/2015 Document Reviewed: 11/24/2015 [employer] Interactive Patient Education ? 2017 [employer] CIGARETTE SMOKING: The facts are clear, cigarette smoking will shorten your life. Smoking can cause many illnesses along the way. As a healthcare provider, we recommend that you stop smoking. Assistance with quitting is available by contacting 9-388-BCFL-NOW. This is a free resource providing counseling, [...] Be sure to sign up for the [employer] patient portal, which gives you 17/09 access to your medical information ??? including these discharge instructions ??? using your computer, smartphone, or tablet. Just go to [employer] to get started. Questions? Call . [facility] would like to thank you for allowing us to assist you with your healthcare needs. NANCY Trujillo RACHEL A, (or housing management representative) have received the above patient education materials/instructions and have verbalized understanding: Patient Signature _ Date/Time Patient Special Assets Officer Signature (if needed) Date/Time Clinician/Hospital Special Assets Officer Signature (if needed) Date/Time documented in this encounter Plan of Treatment Not on file documented as of this encounter Visit Diagnoses Not on filedocumented in this encounter
--- OUTSIDE RECORDS SUMMARY | 2024-12-21 12:57 | XMS_ITS | Encounter Summary ---
Author Organization Healthcare Address [address] [place] [address] Care Team Providers Care Geographic Information System Analyst Name Role Phone Alena Reed ESTHETICIAN/SPA COORDINATOR Primary Care Provider [phone] Encounter Details Date Type Department Care Team (Latest Contact Info) Description 12/07/2024 Travel Social History Tobacco Use Types Packs/Day [...] on file documented as of this encounter Functional Status * Over the [...] television Not at all 12/07/2024 8:21 AM EDT Yenny Galeano Moving or speaking so slowly that other people could have noticed? Or the opposite - being so fidgety or restless that you have been moving around a lot more than usual. Not at all 12/07/2024 8:21 AM EDT Yenny Galeano Thoughts that you would be b romeo off or hurting yourself in some way Not at all 12/07/2024 8:21 AM EDT Yenny Galeano Patient Health Questionnaire -9 Score 0 12/07/2024 8:21 AM EDT Yenny Galeano * How difficult have these problems made it for you to do your work, take care of things at home, or get along with other people? Answer Date of Assessment Author Not difficult at all 12/07/2024 8:21 AM EDT Yenny Vega documented as of this encounter Plan of [...] documented as of this encounter Care Teams Geographic Information System Analyst Relationship Specialty Start Date End Date Alena Reed APRN [address] [place] [address] PCP - General 10/19/24 documented as of this encounter
--- OUTSIDE RECORDS SUMMARY | 2024-12-21 12:57 | XMS_ITS | Clinical Summary ---
Author Organization Healthcare Address [address] [id number] Care Team Providers Care Vein Access Technician Name Role Phone Alena Reed RAZA Primary Care Provider +1- [phone] Allergies Active Allergy Reactions Criticality Noted Date Comments Prednisone Swelling High 10/19/2024 Medications Xarelto 20 MG tablet 11/15/19 21 Active carvedilol (Coreg) 25 MG tablet Take 0.5 tablets by mouth 2 times a day with meals. 01/28/20 17 Active Entresto 49-51 MG tablet 11/13/19 21 Active spironolactone (Aldactone) 25 MG tablet 11/09/19 21 Active hydrOXYzine HCl (Atarax) 25 MG tablet 11/15/19 21 Active levothyroxine (Synthroid, Levoxyl) 25 MCG tablet 05/04/19 21 Active traMADol (Ultram) 50 MG tablet 09/10/19 21 Active busPIRone (Buspar) 10 MG tablet 11/13/19 21 Active ondansetron (Zofran) 4 MG tablet 11/16/19 21 Active omeprazole (PriLOSEC) [address] capsule 11/15/19 21 Active GaviLyte-G 236 g solution 07/07/19 21 Active bumetanide (Bumex) 1 MG tablet Take 1 tablet by mouth daily. 09/29/19 25 Active methocarbamol (Robaxin) 500 MG tablet Take [...] the skin 1 time per week. Active dexlansoprazole (Dexilant) [address] capsule Take 1 capsule by mouth daily. Do not crush or chew. Active Zituvimet XR 50-500 MG tablet sustained-release 24 hour 11/14/19 25 Active gabapentin (Neurontin) 600 MG tablet 11/11/19 25 Active ondansetron ODT (Zofran-ODT) 4 MG disintegrating tablet 11/24/19 25 Active gabapentin (Neurontin) 400 MG capsule 10/11/19 21 Discontinu ed(Per Patient Report) SITagliptin Base-metFORMIN HCl (Zituvimet) 50-500 MG tablet Take by mouth. Discontinu ed(Per Patient Report) Active Problems Problem Noted Date Diagnosed Date HFrEF (heart failure with reduced ejection fract ion) 10/19/2024 Assessment & Plan (12/07/2024 1:33 PM EDT): Orders: Ambulatory referral to Cardiac Rehab; Future NICM (nonischemic cardiomyopathy) 10/19/2024 ICD (implantable cardioverter-defibrillator) in place 10/19/2024 Syncope and collapse 10/19/2024 Pulmonary emboli 10/19/2024 Morbid obesity 10/19/2024 Type 2 diabetes mellitus wit hout complication, with long-term current use of insulin 10/19/2024 Encounters Date Type Department Care Team Description 12/07/2024 8:20 AM EDT Office Visit [facility] [address] [place] [address] Mei Jackson MD HFrEF (heart failure with reduced ejection fraction) (Primary Dx); ICD (implantable cardioverter-defibrilla tor) in place; NICM (nonischemic cardiomyopathy) ([facility]/HCC); BMI 40.0-44.9, adult ([facility]); Other fatigue 12/07/2024 Orders Only [facility] [address] [address] Tiffanie Macias HFrEF (heart failure with reduced ejection fraction) (Primary Dx) 12/07/2024 Travel 11/11/2024 11:45 AM EDT - 11/11/2024 1:00 PM EDT Surgery Cardiac Hide Examiner [address] [place] [address] Mei Jackson MD Right heart catheterization [25828 (CPT )] 11/11/2024 9:38 AM EDT - 11/12/2024 2:00 AM EDT Hospital Encounter Cardiac Hide Examiner [address] [place] [phone] Mei Jackson MD HFrEF (heart failure with reduced ejection fraction) ([facility]) Discharge Disposition: Home or Self Care 11/04/2024 Telephone [facility] [address] [phone] Mei Jackson MD 10/30/2024 Telephone [facility] [address] [phone] Sunitha Fleming RN 10/20/2024 Telephone [facility] [address] [phone] January Lewis 10/19/2024 8:20 AM EDT Office Visit [facility] [address] [facility] [address] Mei Jackson MD HFrEF (heart failure with reduced ejection fraction) ([facility]/HCC) (Primary Dx); ICD (implantable cardioverter-defibrilla tor) in place; NICM (nonischemic cardiomyopathy) ([facility]/HCC); Syncope and collapse; Morbid obesity (CMS/HCC); Type 2 diabetes mellitus without complication, with long-term current use of insulin; Other fatigue 10/19/2024 Travel 10/15/2024 Telephone [facility] [address] [place] [address] Joshua January Almazan from Last 3 Months Family History Medical [...] Pulse 91 12/07/2024 8:07 AM EDT Temperature 37.2 C (99 F) 11/11/2024 12:08 PM EDT Respiratory Rate 20 11/11/2024 12:30 PM EDT Oxygen Saturation 97% 12/07/2024 8:07 AM EDT Inhaled Oxygen Concentration - - Weight 108 kg (238 lb 1.6 oz) 12/07/2024 8:07 AM EDT Height 160 cm (5' 3 ) 12/07/2024 8:07 AM EDT Body Mass Index 42.18 12/07/2024 8:07 AM EDT Plan of Treatment Health Maintenance Due Date Last Done Comments [facility]-Diabetes: Hemoglobin A1C 1980 [facility]-HIV Screening 1980 [facility]-Infant/Child/Adol SDOH Screenings 1980 [id number] Vaccine (#1) 10/26/1984 Diabetes: Dental Exam 10/26/1989 [facility]-Varicella Vaccines (1 of 2 - 13+ 2-dose series) 10/26/1992 [facility]- SDOH Screenings 10/26/1997 [facility]-Adult SDOH Screenings 10/26/1997 [facility]-DTaP,Tdap,and Td Vaccines (1 - Tdap) 10/26/1998 [facility]-Hepatitis B Vaccines (1 of 3 - 19+ 3-dose series) 10/26/1998 [facility]-Pneumococcal Vaccine: Pediatrics (0 to 5 Years) and At-Risk Patients (6 to 49 Years) (1 of 2 - PCV) 10/26/1998 HPV Vaccines (1 - 3-dose SCDM series) 10/26/2006 CT Colonography 10/26/2024 Colonoscopy 10/26/2024 FIT-DNA 10/26/2024 FIT 10/26/2024 FOBT 10/26/2024 Sigmoidoscopy 10/26/2024 [facility]-Colorectal Cancer Screening 10/26/2024 [facility]-Influenza Vaccine (#1) 2024 [facility]-Depression Screening 12/07/2025 12/07/2024, 11/25 [facility]-Zoster Vaccines (1 of 2) 10/26/2029 [facility]-Hepatitis C Screening Completed 04/18/2017 [facility]-Obesity Intervention Completed 025, 10/19/2024, 10/19/2024, Additional history exists [facility]-HIB Vaccines Aged Out No longer e [...] Co-Oximetry Mixed Venous (11/11/2024 12:00 PM EDT) Pathologist [facility] POCT Oxyhemoglobin, Mixed Venous 64.9 % 11/11/2024 11:57 AM EDT [facility]ALTH[facility]ARE [facility] Training And Development Coordinator ID Makenna Juarez 11/11/2024 11:57 AM EDT HEALTHCARE LAB Device ID [id number] 11/11/2024 11:57 AM EDT HEALTHCARE LAB POCT Sample Site PA 11/11/2024 11:57 AM EDT HEALTHCARE LAB POCT Total Hemoglobin 10.8(L) 11.2 - 15.7 g/dL 11/11/2024 11:57 AM EDT HEALTHCARE LAB 11/11/2024 12:0 0 PM EDT 11/11/2024 11:57 AM EDT Mei Jackson MD LAB POINT OF CARE TEST DOCKED DEVICE UNSOLICITED RESULTS Final Result Performing Organization Address City/State/[facility] Co de Phone Number HEALTHCARE LAB [address] [place] [phone] * RIGHT HEART CATHETERIZATION (11/11/2024 11:57 AM [...] catheterization Access: Right Jugular vein 8 Fr Bolingbrook Sheath Procedure: After obtaining consent, the patient [...] was inserted through the needle, an 8Fr Bolingbrook sheath was inserted over the wire, subsequently blood was aspirated and the sheath was flushed. A 7.5 [place]- Angela catheter was passed through the Bolingbrook sheath into the RA, RV and PA chambers along with obtaining measured pressures and PCWP. A small blood sample was obtained from the PA to calculate assumed Alexander cardiac output and index in addition to thermodilution technique. Ultimately, the Bolingbrook sheath was withdrawn while the patient was [...] Thermo CO: 6.8 L/min CI: 3.1 L/min/m2 SEAWEED HARVESTER: 0.42 W Resistance Thermo PVR: 1.6 SANCHEZ Thermo PVR: 129 (dyne x sec)/cm5 Hemodynamic Data Saturations Phase: Resting Saturations PA: 65 % Mei Jackson MD CV CARDIAC CATH PROCEDURES Final Result * ECG Adult (Now - Performed in your clinic) (10/19/2024 8:42 AM EDT) EKG DIAGNOSIS CLASS Abnormal MUSE ECG Ventricular Rate 82 BPM MUSE ECG Atrial Rate 82 BPM MUSE ECG SC Interval 142 ms MUSE ECG QRSD Interval 140 ms MUSE ECG QT Interval 432 ms MUSE ECG QTC Interval 504 ms MUSE ECG P Lee 75 degrees MUSE ECG R Lee 143 degrees MUSE ECG T Wave Lee 98 degrees MUSE ECG Diagnosis Atrial-sensed ventricular-p aced rhythm MUSE ECG Diagnosis Abnormal ECG MUSE ECG Diagnosis MUSE ECG Diagnosis Confirmed by Kenya Anton ([id number]) on 10/20/2024 4:06:01 PM MUSE ECG 10/19/2024 8:42 AM EDT 10/20/2024 4:06 PM EDT Mei Jackson MD ECG ORDERABLES Final Resu lt MUSE ECG * Magnesium, Plasma (10/06/2024 10:23 AM EDT) External Magnesium (Mg) 1.6 EXTERNAL LAB Blood Venous blood specimen / Unknown 10/06/2024 10:23 AM EDT Historical Provider LAB BLOOD ORDERABLES Final R esult EXTERNAL LAB * (ABNORMAL) Comprehensive Metabolic Panel, [...] specimen / Unknown 10/06/2024 10:23 AM EDT [facility] Provider LAB BLOOD ORDERABLES Final R 5 Star Quarterbackult EXTERNAL LAB * Hepatitis C Antibody (04/18/2017 12:17 PM EST) Hepatitis C Antibody NEGATIVE Reference Range: Negative SUNQUEST 04/18/2017 12:1 7 PM EST 04/18/2017 4:17 PM EST [facility] Provider LAB BLOOD ORDERABLES Final R esult SUNQUEST from Last 3 Months or Most Recently Relevant to Health Maintenance Insurance SHIRA Care Teams Vein Access Technician Relationship Specialty Start Date End Date Alena Reed APRN [address] [place] [address] PCP - General 10/19/24
--- OUTSIDE RECORDS SUMMARY | 2024-12-21 12:57 | XMS_ITS | Encounter Summary ---
Author Organization Healthcare Address [address] [place] [address] Care Team Providers Care Veterans Services Specialist Name Role Phone Alena Reed FIELD MARKETING MANAGER Primary Care Provider +1- [phone] Encounter Details Date Type Department Care Team (Late st Contact Info) Description 11/04/2024 Telephone [facility] [address] [place] [address] Mei Jackson MD [address] [place] [address] Social History Tobacco Use Types [...] 11:30 AM EDT Spoke to Holly at [facility] and faxed office note, insurance card, and order for sleep studyto [phone]. * Telephone Encounter - Leigh Bajwa - 11/04/2024 10:35 AM EDT Clinical Concern/Question Reason for Call: [facility] called to check to see if we are ordering a sleep study for pt. Best contact number: [phone] Optimal time of day to reach caller: Additional comments/information from caller: Note: Please do not reply to this message. Follow-up communication and further actions as a result of this message need to be communicated with the patient directly, if the patient is not active onMyChart. If the patient is active on MyChart, they will receive notification of the communication/outcome via Justinmind. documented in this encounter Plan of Treatment [...] documented as of this encounter Care Teams Veterans Services Specialist Relationship Specialty Start Date End Date Alena Reed APRN [address] [place] [address] PCP - General 10/19/24 documented as of this encounter
--- OUTSIDE RECORDS SUMMARY | 2024-12-21 12:57 | XMS_ITS | Encounter Summary ---
Author Organization Healthcare Address [address] [id number] Care Team Providers Care Stockroom Attendant Name Role Phone Alena Reed RAZA Primary Care Provider +1- [phone] Reason for Referral * Consultation (Routine) - Authorized Specialty Diagnoses / Procedures Referred By Ravinder cruz Referred To Contact Cardiac Rehabilitation Diagnoses HFrEF (heart failure with reduced ejection fraction) Mei Jackson MD [address] [place] [address] Phone: tel: fax: [facility] [address], [address] [place] [address] Phone: tel: fax: Referral ID Status Reason Start Date Expiration Date Visits Requested Visits Authorized [id number] Authorized Consult and Treat 12/07/2024 06/08/2026 1 1 Encounter Details Date Type Department Care Team (Late st Contact Info) Description 12/07/2024 Orders Only [facility] [address] [place] [address] Tiffanie Macias HFrEF (heart failure with reduced ejection fraction) (Primary Dx) Social History Tobacco Use Types Packs/Day Years [...] things Not at all 12/07/2024 8:21 AM Yenny Mondragon Feeling down, depressed, or hopeless Not at all 12/07/2024 8:21 AM HET Yenny Galeano Patient Health Questionnaire -2 Score 0 12/07/2024 8:21 AM Yenny Mondragon * Question Answer Date of Assessment Author Trouble falling or staying a sleep, or sleeping too much Not at all 12/07/2024 8:21 AM Yenny Mondragon Feeling tired or having attila le energy Not at all 12/07/2024 8:21 AM Yenny Mondragon Poor appetite or overeating Not at all 12/07/2024 8: 21 AM Yenny Mondragon Feeling bad about yourself - or that [...] 12/07/2024 8:21 AM Yenny Mondragon Patient Health Questionnaire -9 Score 0 12/07/2024 8:21 AM Yenny Mondragon * How difficult have these problems made it for you to do your work, take care of things at home, or get along with other people? Answer Date of Assessment Author Not difficult at all 12/07/2024 8:21 AM EDT Yenny Vega documented as of this encounter Miscellaneous Notes * Assessment & Plan Note - Tiffanie Macias - 12/07/2024 1:31 PM EDTAssociated Problem(s): HFrEF (heart failure with reduced ejection fraction) Orders: Ambulatory referral to Cardiac Rehab; Future * Progress Notes - Tiffanie Macias - 12/07/2024 1:31 PM EDT Cardiac Rehab Note Patient Name: Gi Smith Today's Date: 12/07/2024 Assessment & Plan HFrEF (heart failure with reduced ejection fraction) Orders: Ambulatory referral to Cardiac Rehab; Future Subjective: Ms. Smith qualifies for outpatient cardiac rehab due to HFrEF. Referral entered from clinic appointment. Will send referral to closest facility to her home, [facility]. [place] will contact Ms. Smith to discuss and schedule. Written/Dicated by Tiffanie Macias on 12/07/24 at 1:32 PM. documented in this encounter Plan of Treatment Scheduled Referrals Name Type Priority Associated Diagnoses Order Schedule Ambulatory referral to Cardiac Rehab Outpatient Referral Routine HFrEF (heart failure with reduced ejection fraction) 1 Occurrences starting 12/07/2024 until 12/07/2025 documented as of this encounter Visit Diagnoses Diagnosis HFrEF (heart failure with reduced ejection fraction)- Primary documented in this encounter Additional Health Concerns Assessment Noted Time PHQ-9 Depression Total Score: 0 12/08/19 8:21 AM EDT A fall risk assessment has been complete d for the patient 12/07/2024 8:21 AM EDT A Body Mass Index follow-up plan has been documented for the patient 12/07/2024 9:11 AM EDT documented as of this encounter Care Teams Stockroom Attendant Relationship Specialty Start Date End Date Alena Reed APRN [address] [place] [address] PCP - General 10/19/24 documented as of this encounter
--- OUTSIDE RECORDS SUMMARY | 2024-12-21 12:57 | XMS_ITS | Encounter Summary ---
Author Organization [facility] ystem Address [address] [place] [address] Care Team Providers Care Second Ride Fare Collector Name Role Phone Unavailable Primary Care Provider Unavailabl e Encounter Details Date Type Department Care Team (Late st Contact Info) Description 04/13/2013 Conversion Encounter [facility] HISTORICAL CONV [address] [place] [address] Interface, See Report Social History [...] See Report - 04/13/2013 12:00 AM EST METAL CASKET ASSEMBLER-Oncology Services [address] [place] [address] Patient: JOYCELYN CRUZ MR #: [id number] : 1980 Date of Visit: 04/13/2013 Referring [...]
--- OUTSIDE RECORDS SUMMARY | 2024-12-21 12:57 | XMS_ITS | Encounter Summary ---
Author Organization [employer] ([place], [place], [place], [place]) Address [address] [place] [address] Care Team Providers Care Stock Receiver Name Role Phone Unavailable Primary Care Provider Unavailabl e Encounter Details Date Type Department Care Team (Late st Contact Info) Description 04/08/2018 Transcribed Document [facility] Family [facility] [place] [address] ProviderSommer MD [address] [place] [address] Social History Tobacco Use Types Packs/Day Years Used Date Smoking Tobacco: Never Assessed Comments Unknown Sex and Gender Information Value Date Recorded Sex Assigned at Not on file Legal Sex Female 1:18 PM CDT Gender Identity Not on file Sexual Orientation Not on file documented as of this encounter Miscellaneous Notes * Cerner Conversion Note - Sommer ProviderMD - 04/08/2018 1:56 PM [facility] Nursing Discharge Summary Entered On: 04/08/2018 13:57 [...] 04/08/2018 13:56 EST Electronically signed by Julio [facility] Conversion Clay Plant Treater Cerner at 06/14/2022 2:51 PM CDT documented in this encounter Plan of Treatment Not on file documented as of this encounter Visit Diagnoses Not on filedocumented in this encounter
--- OUTSIDE RECORDS SUMMARY | 2024-12-21 12:57 | XMS_ITS | Encounter Summary ---
Author Organization Healthcare Address [address] [id number] Care Team Providers Care Call Center Analyst Name Role Phone Alena Reed APRN Primary Care Provider +1- [phone] Encounter Details Date Type Department Care Team (Late st Contact Info) Description 10/30/2024 Telephone [facility] [place] [facility] [address] [place] [address] Sunitha Fleming, RN EMERGENCY SERVICES Social History [...] PM EDT Sleep medicine referral faxed to [facility] at [phone]. Included my office number for any additional [...] as of this encounter Care Teams Call Center Analyst Relationship Specialty Start Date End Date Alena Reed APRN [address] [place] [address] PCP - General 10/19/24 documented as of this encounter
== END 2024-12-21 23:59 | disposition home or self-care (01) ==
PROVIDERS: PCP Nurse Practitioner Family; Visit Provider Nurse Practitioner Family
DX: R79.89 Other specified abnormal findings of blood chemistry (principal)
CPT/HCPCS: 82180; 83735

== ENCOUNTER → 2025-01-14 06:28 | Outpatient (CLI) | payer BC, SELFPAY ==
--- OUTSIDE RECORDS SUMMARY | 2024-12-07 07:20 | XMS_ITS | Encounter Summary ---
Author Organization Healthcare Address [address] [id number] Care Team Providers Care Call Manager Name Role Phone Alena Reed RAZA Primary Care Provider [phone]- [phone] Reason for Referral * Consultation (Routine) - Authorized Specialty Diagnoses / Procedures Referred By Ravinder cruz Referred To Contact Cardiac Rehabilitation Diagnoses HFrEF (heart failure with reduced ejection fraction) Anais Fountain APRN [address] [place] [address] Phone: tel: fax: [facility] Cardiac Rehabilitation [address] [facility], [address] [place] [address] Phone: tel: fax: Referral ID Status Reason Start Date Expiration Date Visits Requested Visits Authorized [id number] Authorized Consult and Treat 12/07/2024 06/08/2026 1 1 Reason for Visit * Reason Comments Follow-up * Consultation (Routine) - Closed Specialty Diagnoses / Procedures Referred By Ravinder cruz Referred To Contact Diagnoses HFrEF (heart failure with reduced ejection fraction) Mei Jackson MD [address] [place] [address] Phone: tel: fax: Referral ID Status Reason Start Date Expiration Date Visits Re quested Visits Authorized [id number] Closed 10/19/2024 04/20/2026 1 1 Encounter Details Date Type Department Care Team ([facility] Contact Info) Description 12/07/2024 8:20 AM EDT Office Visit [facility] [place] [facility] [address] [facility]. [address] [place] [address] Mei Jackson MD [address] [place] [address] HFrEF (heart failure with reduced ejection fraction) (Primary Dx); ICD (implantable cardioverter-defibril lator) in place; NICM (nonischemic cardiomyopathy) ([facility]); BMI 40.0-44.9, adult ([facility]); Other fatigue Social History Tobacco Use Types Packs/Day Years Used Date Smoking Tobacco: Never Smokeless Tobacco: Never Tobacco Cessation:Counseling Given: Not Answered Alcohol Use Standard Drinks/Week Comments No 0 (1 standard drink = 0.6 oz pur e alcohol) PHQ-2 Answer Date Recorded Patient Health Questionnaire-2 Score 0 12/07/2024 PHQ-9 Answer Date Recorded Patient Health Questionnaire-9 Score 0 12/07/2024 Comments No Sex and Gender Information Value Date Recorded Sex Assigned at Not on file Legal Sex Female 6:40 PM EDT Gender Identity Not on file Sexual Orientation Not on file documented as of this encounter Last Filed Vital Signs Vital Sign Reading Time Taken Comments Blood Pressure 108/75 12/07/2024 8:07 AM EDT Pulse 91 12/07/2024 8:07 AM EDT Temperature - - Respiratory Rate - - Oxygen Saturation 97% 12/07/2024 8:07 AM EDT Inhaled Oxygen Concentration - - Weight 108 kg (238 lb 1.6 oz) 12/07/2024 8:07 AM EDT Height 160 cm (5' 3 ) 12/07/2024 8:07 AM EDT Body Mass Index 42.18 12/07/2024 8:07 AM EDT documented in this encounter Functional Status * Over the past 2 weeks, how often have you been bothered by any of the following problems? Question Answer Date of Assessment Author Little interest or pleasure in doing things Not at all 12/07/2024 8:21 AM EDT Yenny Galeano Feeling down, depressed, or hopeless Not at all 11/25 8:21 AM EDT Yenny Galeano Patient Health Questionnaire-2 Score 0 11/25 8:21 AM EDT Yenny Galeano * Question Answer Date of Assessment Author Trouble falling or staying a sleep, or sleeping too much Not at all 12/07/2024 8:21 AM Yenny Mondragon Feeling tired or having little energy Not at all 8:21 AM Yenny Mondragon Poor appetite or overeating Not at all 12/07/2024 8: 21 AM HET Yenny Galeano Feeling bad about yourself - or that you are a failure or have let yourself or your family down Not at all 12/07/2024 8:21 AM Wiliam Mondragon Trouble concentrating on thi ngs, such as reading the newspaper or watching television Not at all 12/07/2024 8:21 AM Yenny Mondragon Moving or speaking so slowly that other people could have noticed? Or the opposite - being so fidgety or restless that you have been moving around a lot more than usual. Not at all 12/07/2024 8:21 AM Yenny Mondragon Thoughts that you would be b romeo off or hurting yourself in some way Not at all 12/07/2024 8:21 AM Yenny Mondragon Patient Health Questionnaire-9 Score 0 11/25 8:21 AM Yenny Mondragon * How difficult have these problems made it for you to do your work, take care of things at home, or get along with other people? Answer Date of Assessment Author Not difficult at all 12/07/2024 8:21 AM Yenny Palacios documented as of this encounter Miscellaneous Notes * Progress Notes - Anais Fountain, OFFICE ASSISTANCE - 12/07/2024 8:20 AM EDT Images from the original note were not included. - Advanced Heart Failure Follow Up Gi Smith is a 44 y.o. female who presents for routine follow up. Past Cardiac History: Patients PMHx is significant for HFrEF s/t NICM, s/p BIV ICD with gen change 02/13/2024, H/o bilateral PE on Xarelto, gastroparesis, dysphagia, diverticulosis, and T2DM. She reports she was hospitalized for bilateral pulmonary emboli in 2010 and was diagnosed with heart failure at that time. INFORMATION MANAGEMENT OFFICER- D was initially placed 06/14/2017. She follows with cardiology at [facility]. Reports she has done well and not been hospitalized since 2010. History of Present Illness She reports persistent symptoms with no improvement since her last visit. She has not undergone a sleep study yet due to some communication issues but is currently in the process of scheduling one. She has not experienced any recent illnesses or hospitalizations. Her fatigue has been progressively worsening, and she feels tired throughout the day, regardless of her sleep quality. She also experiences shortness of breath, which intensifies during physical activity and occasionally occurs at rest. She uses 4 pillows for sleeping and does not report waking up gasping for air or feeling smothered. She does not experience chest pain. She notes occasional palpitations and lightheadedness, no recent syncope. No recent issues with swelling noted. Weight has been fairly stable. BPs are running 90-100s at home. She has tried increasing coreg in the past and was intolerant to higher doses d/t hypotension. She has been compliant with medications and is tolerating without adverse effects. Review of symptoms 14 Point ROS reviewed [...] Physical Exam Constitutional: Appearance: Normal appearance. Obese. Cardiovascular: Rate and Rhythm: Normal rate and regular rhythm. Heart sounds: Normal heart sounds. Neck: No JVD Pulmonary: Effort: Pulmonary effort is normal. Breath sounds: Normal breath sounds. Abdominal: Palpations: Abdomen is soft. Skin: General: Skin is warm and dry. Neurological: General: No focal deficit present. Mental Status: Alert and oriented to person, place, and time. Psychiatric: Mood and Affect: Mood normal. Behavior: Behavior normal. Extremities: No edema Visit Vitals BP 108/75 Pulse 91 Ht 1.6 m (5' 3 ) Wt 108 kg (238 lb 1.6 oz) SpO2 97% BMI 42.18 kg/m?? Echocardiograms: TTE 10/2023: EF 30%, LVIDD 5.87 cm, G1DD, small apical aneurysm, mod-severe global hypokinesis, no significant VHD Catheterizations: [facility] 09/2021: normal coronaries Labs Lab Results Component Value Date HGB 13.2 11/16/2020 HCT 41.5 11/16/2020 PLT 323 11/16/2020 ALT 44 10/06/2024 AST tnp 10/06/2024 NA 136 10/06/2024 K 5.1 10/06/2024 CREATININE 0.90 10/06/2024 BUN 13 10/06/2024 CO2 26 10/06/2024 Assessment and Plan HFrEF s/t NICM -NYHA class III -appears compensated on exam -S/p BIV ICD, gen change 02/13/2024 -EF 30% per echo 10/2023 -RHC 10/2024: RA 14, PA 37/23 (28), PCW 17, CI 2.7, CO 5.6 Alexander -GDMT: coreg 12.5 mg BID, Entresto 49/51 mg BID, spironolactone 25 mg daily, bumex 1 mg daily for volume control -Did not tolerate SGLT2i d/t dehydration (tried both while off bumex) -Cardiac rehab referral place H/o PE -anticoagulated on Xarelto -denies s/s of bleeding T2DM -follows with endocrinology Gastroparesis / Dysphagia / Diverticulosis -follows with GI at [facility] -Sleep referral placed - she is in the process of scheduling locally Obesity -BMI 42 today -Weight loss encouraged through diet and exercise A total time of 40 minutes was spent by MD and RAJESH addressing the current illness, reviewing records (prior imaging, lab work, etc), and formulating a plan. The patient is agreeable to the plan and all pertinent questions were answered. Patient was seen and assessed in collaboration with Dr. Jackson who agrees with the above plan of care. Follow up in 4 months. Anais Fountain, RAZA 12/07/24 Verbal consent was obtained to use ambient listening technology to assist in the documentation of the encounter: yes [1] Past 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: Diagnosis Date Diabetes type 2, controlled Hypothyroidism Lupus Neuropathy Rheumatoid arthritis (CMS/HCC) [2] Past Surgical History: Procedure Laterality Date APPENDECTOMY N/A appendectomy from [facility] CARDIAC CATHETERIZATION N/A cardiac catheterization from [facility] CARDIAC PACEMAKER PLACEMENT N/A Pacemaker Placement from [facility] CARPAL TUNNEL RELEASE N/A Carpal tunnel surgery from [facility] CYST REMOVAL ESOPHAGOGASTRODUODENOSCOPY HYSTERECTOMY N/A hysterectomy from [facility] TONSILLECTOMY [3] Current Outpatient Medications Medication Sig Dispense Refill baclofen (Lioresal) 20 MG tablet Take 1 tablet by mouth 3 times a day. (Patient taking differently:Take 1 tablet by mouth daily.) Biotin 10 MG capsule Take 10 mg by mouth daily. (Patient taking differently: Take 10,000 mg by mouth daily.) bumetanide (Bumex) 1 MG tablet Take 1 tablet by mouth daily. busPIRone (Buspar) 10 MG tablet carvedilol (Coreg) 25 MG tablet Take 0.5 tablets by mouth 2 times a day with meals. dexlansoprazole (Dexilant) [address] capsule Take 1 capsule by mouth daily. Do not crush or chew. dulaglutide (Trulicity) 1.5 MG/0.5ML solution auto-injector Inject 1.5 mg under the skin 1 time perweek. Entresto 49-51 MG tablet gabapentin (Neurontin) 600 MG tablet hydrOXYzine HCl (Atarax) 25 MG tablet magnesium oxide (Mag-Ox) 400 mg tablet Take 1 tablet by mouth nightly. methocarbamol (Robaxin) 500 MG tablet Take 1 tablet by mouth 3 times a day as needed for muscle spasms. (Patient taking differently: Take 1 tablet by mouth 2 times a day.) naproxen (EC Naprosyn) 375 MG EC tablet Take 1 tablet by mouth daily. Do not crush, chew, or split. ondansetron (Zofran) 4 MG tablet ondansetron ODT (Zofran-ODT) 4 MG disintegrating tablet rosuvastatin (Crestor) 40 MG tablet Take 1 tablet by mouth daily. Take 1/2 tablet every evening perpatient spironolactone (Aldactone) 25 MG tablet traMADol (Ultram) 50 MG tablet triamcinolone (Kenalog) 0.1 % cream Apply 1 Application topically 2 times a day. Xarelto 20 MG tablet Zituvimet XR 50-500 MG tablet sustained-release 24 hour GaviLyte-G 236 g solution (Patient not taking: Reported on 12/07/2024) levothyroxine (Synthroid, Levoxyl) 25 MCG tablet (Patient not taking: Reported on 11/11/2024) omeprazole (PriLOSEC) [address] capsule (Patient not taking: Reported on 12/07/2024) No current facility-administered medications for this visit. documented in this encounter Plan of Treatment Upcoming Encounters Date Type Department Care Team (Late st Contact Info) Description 04/15/2025 2:40 PM EST Office Visit [facility] [place] [address] [place] [address] Mei Jackson MD [address] [place] [address] Scheduled Referrals Name Type Priority Associated Diagnoses Order Schedule Ambulatory referral to Cardiac Rehab Outpatient Referral Routine HFrEF (heart failure with reduced ejection fraction) 1 Occurrences starting 12/07/2024 until 06/10/2026 documented as of this encounter Visit Diagnoses Diagnosis HFrEF (heart failure with reduced ejection fraction)- Primary ICD (implantable cardioverter-defibrillator) in place NICM (nonischemic cardiomyopathy) (CMS/HCC) BMI 40.0-44.9, adult ([facility]) Other fatigue documented in this encounter Additional Health Concerns Assessment Noted Time PHQ-9 Depression Total Score: 0 12/08/19 8:21 AM EDT A fall risk assessment has been complete d for the patient 12/07/2024 8:21 AM EDT A Body Mass Index follow-up plan has been documented for the patient 12/07/2024 9:11 AM EDT documented as of this encounter Care Teams Call Manager Relationship Specialty Start Date End Date Alena Reed APRN [address] [place] [address] PCP - General 10/19/24 documented as of this encounter
--- OUTSIDE RECORDS SUMMARY | 2025-01-14 06:31 | XMS_ITS | Encounter Summary ---
Author Organization [employer] ([place], [place], [place], [place], [place]) Address [address] [place] [address] Care Team Providers Care Human Resources Project Coordinator Name Role Phone Unavailable Primary Care Provider Unavailabl e Encounter Details Date Type Department Care Team (Late st Contact Info) Description 04/08/2018 Transcribed Document [facility] [place] [facility] [place] [address] ProviderSommer MD [address] [place], [place] [address] Social History Tobacco Use Types Packs/Day Years Used Date Smoking Tobacco: Never Assessed Comments Unknown Sex and Gender Information Value Date Recorded Sex Assigned at Not on file Legal Sex Female 1:18 PM CDT Gender Identity Not on file Sexual Orientation Not on file documented as of this encounter Miscellaneous Notes * Cerner Conversion Note - Sommer Karimi MD - 04/08/2018 11:14 AM MANAGER MEDICAID Patient: GI CRUZ Age: 37 years Sex: Female : 1980 Associated Diagnoses: None Author: JO-ANN BRUNNER PA Fluoroscopically guided lumbar puncture was perfomed at the L3-4 level and 10 mls of contrast injected. The patient tolerated the procedure well. Cervical myelogram was then performed. CT and report to follow. Electronically signed by Selena Kim Conversion Assistant Professor Of Anthropology Cerner at 06/14/2022 3:08 PM CDT documented in this encounter Plan of Treatment Not on file documented as of this encounter Visit Diagnoses Not on filedocumented in this encounter
--- OUTSIDE RECORDS SUMMARY | 2025-01-14 06:31 | XMS_ITS | Encounter Summary ---
Author Organization [employer] ([place], [place], [place], [place], [place]) Address [address] [place] [address] Care Team Providers Care Automatic Stacker Name Role Phone Unavailable Primary Care Provider Unavailabl e Encounter Details Date Type Department Care Team (Late st Contact Info) Description 04/08/2018 Transcribed Document [facility] [place] Family Medicine [facility] [place] [address] ProviderSommer MD [address] [place] [address] Social History Tobacco Use Types [...] Sommer Karimi MD - 04/08/2018 1:21 PM ELEVATOR SUPERVISOR Patient Education Materials Follows: Incision Care, Adult [...] and water are not available, use hand director of programming. ? Change your dressing as told by [...] even if your condition improves. ??? Take stvt-vnx-tshuhyc and prescription medicines only as told by [...] 08/31/2005 Document Revised: 10/19/2016 Document Reviewed: 08/29/2016 [employer] Interactive Patient Education ? 2017 [employer] Orthopedics Myelogram, Care After Introduction Refer [...] by your health care provider. ??? Take rgjn-tix-dtihqfm and prescription medicines only as told by [...] are taking, including vitamins, herbs, eyedrops, and xyjs-mju-bzfjmxx medicines and creams. ??? Previous problems you [...] 10/04/2004 Document Revised: 03/04/2015 Document Reviewed: 11/24/2015 [employer] Interactive Patient Education ? 2017 [employer]. Radiology What You Need to Know About [...] 01/30/2010 Document Revised: 10/04/2016 Document Reviewed: 10/19/2015 [employer] Interactive Patient Education ? 2017 [employer] documented in this encounter Plan of Treatment Not on file documented as of this encounter Visit Diagnoses Not on filedocumented in this encounter"
--- OUTSIDE RECORDS SUMMARY | 2025-01-14 06:31 | XMS_ITS | Encounter Summary ---
Author Organization [facility] ([place], [place], [place], [place], [place]) Address [address] [place] [address] Care Team Providers Care Stock Wetter Name Role Phone Unavailable Primary Care Provider Unavailabl e Encounter Details Date Type Department Care Team (Late st Contact Info) Description 04/08/2018 Transcribed Document [facility] [place] [facility] [address] ProviderSommer MD [address] [place] [address] Social History Tobacco Use Types Packs/Day Years Used Date Smoking Tobacco: Never Assessed Comments Unknown Sex and Gender Information Value Date Recorded Sex Assigned at Not on file Legal Sex Female 1:18 PM CDT Gender Identity Not on file Sexual Orientation Not on file documented as of this encounter Miscellaneous Notes * Cerner Conversion Note - Sommer ProviderMD - 04/08/2018 8:35 AM TECHNOLOGY SALES SPECIALIST PAT / Pre Procedure Adult Entered On: 04/08/2018 8:43 EST Performed On: 04/08/2018 8:35 EST by LY LIMA RN General Info Arrived From : Home Mode of Arrival on Unit : Ambulatory Patient Arrival Date/Time : 04/08/2018 8:05 EST Legal Guardian : Spouse Support Person/Pt Rep Name : MAR- Support Person/Pt Rep Contact Information : [phone] Want Family/Rep/Phys Notified of Admit : No Emergency Contact #1 : NA Emergency Contact #1 Phone Number : NA Emergency Contact #1 Relationship : NA Emergency Contact #2 : NA Emergency Contact #2 Phone Number : NA Emergency Contact #2 Relationship : NA Information Obtained From : Patient Primary Language : Stateless Communication Barrier : None LY LIMA RN - 04/08/2018 8:35 EST Height and Weight, Clinical Dosing Height Source : Stated Height Entry Format : [place]illiards Height, Feet : 5 ft(Converted to: 152 cm, 60 Inch) Height, Inches : 3 Inch(Converted to: 0 ft 3 Inch, 7.62 cm) Clinical Height : 160.02 cm Weight Source : Standing scale Weight Entry Format : Hilliards Clinical Dosing Weight : 114.09 kg Weight, Pounds : 251 lb Body Surface Area (BSA) : 2.13 m2 Body Mass Index : 44.6 kg/m2 (>HHI) [place] Body Weight : 52 kg LY LIMA [...] LY LIMA RN - 04/08/2018 8:35 EST Glne Scale [place] Sensory Perception : No impairment [...] Scale Risk Level : 25-45 Medium Risk [place] Fall Interventions : Adequate lighting, Assistive devices [...]
--- OUTSIDE RECORDS SUMMARY | 2025-01-14 06:31 | XMS_ITS | Encounter Summary ---
Author Organization [employer] ([place], [place], [place], [place], [place]) Address [address] [place] [address] Care Team Providers Care Mechanical Service Representative Name Role Phone Unavailable Primary Care Provider Unavailabl e Encounter Details Date Type Department Care Team (Late st Contact Info) Description 04/08/2018 Transcribed Document [facility] Family Medicine [facility] [place] [address] ProviderSommer MD [address] [place] [address] Social History Tobacco Use Types Packs/Day Years Used Date Smoking Tobacco: Never Assessed Comments Unknown Sex and Gender Information Value Date Recorded Sex Assigned at Not on file Legal Sex Female 1:18 PM CDT Gender Identity Not on file Sexual Orientation Not on file documented as of this encounter Miscellaneous Notes * Cerner Conversion Note - Sommer ProviderMD - 04/08/2018 1:57 PM STOKER ERECTOR AND SERVICER [address] , [place] [address] Patient Copy Patient Information: Name: GI CRUZ Current Date: 04/08/2018 13:57:07 : 1980 Patient Address: [address] [place] [id number] Patient Attending Physician: YASMANY NEVAREZ MD-ORT Primary Care Provider: RUSS KAN MD-JENNA Primary Care Provider Discharge Diagnosis: Weight on Admission: 251 lb, 0 oz Comment: Follow-up Instructions: With: Address: When: YASMANY NEVAREZ [address] [place] [address], [address] [place] [address] Business (1) Within 1 to [...] any): Final Medication List: Other Medications biotin 77767 Oral Every Day. carvedilol (carvedilol 25 mg [...] and water are not available, use hand online marketing coordinator. ? Change your dressing as told [...] even if your condition improves. ??? Take lxpy-jdg-ldssumq and prescription medicines only as told by [...] 08/31/2005 Document Revised: 10/19/2016 Document Reviewed: 08/29/2016 ElseivWatch Interactive Patient Education ? 2017 [employer]. What You Need to Know About [...] 01/30/2010 Document Revised: 10/04/2016 Document Reviewed: 10/19/2015 [employer] Interactive Patient Education ? 2017 [employer]. Myelogram, Care After Introduction Refer to [...] by your health care provider. ??? Take djdy-xii-xffevgm and prescription medicines only as told by [...] are taking, including vitamins, herbs, eyedrops, and xaqz-seo-appsysf medicines and creams. ??? Previous problems you [...] 10/04/2004 Document Revised: 03/04/2015 Document Reviewed: 11/24/2015 [employer] Interactive Patient Education ? 2017 [employer] CIGARETTE SMOKING: The facts are clear, cigarette smoking will shorten your life. Smoking can cause many illnesses along the way. As a healthcare provider, we recommend that you stop smoking. Assistance with quitting is available by contacting 8-808-QQNL-NOW. This is a free resource providing counseling, [...] Be sure to sign up for the [employer] patient portal, which gives you 17/09 access to your medical information ??? including these discharge instructions ??? using your computer, smartphone, or tablet. Just go to [employer] to get started. Questions? Call . [facility] would like to thank you for allowing us to assist you with your healthcare needs. NANCY Trujillo RACHEL A, (or public utilities sales representative) have received the above patient education materials/instructions and have verbalized understanding: Patient Signature _ Date/Time Patient Geospatial Intelligence Analyst Signature (if needed) Date/Time Clinician/Hospital Geospatial Intelligence Analyst Signature (if needed) Date/Time documented in this encounter Plan of Treatment Not on file documented as of this encounter Visit Diagnoses Not on filedocumented in this encounter
--- OUTSIDE RECORDS SUMMARY | 2025-01-14 06:31 | XMS_ITS | Referral Summary ---
Author Organization [employer] ([place], [place], [place], [place], [place]) Address [address] [place] [address] Care Team Providers Care Director Of Application Development Name Role Phone Unavailable Primary Care Provider [...]
--- OUTSIDE RECORDS SUMMARY | 2025-01-14 06:31 | XMS_ITS | Encounter Summary ---
Author Organization [employer] ([place], [place], [place], [place], [place]) Address [address] [place] [address] Care Team Providers Care Check Services Clerk Name Role Phone Unavailable Primary Care Provider Unavailabl e Encounter Details Date Type Department Care Team (Late st Contact Info) Description 04/08/2018 Transcribed Document [facility] Family Medicine [facility] [place] [address] ProviderSommer MD [address] [place] [address] Social History Tobacco Use Types Packs/Day Years Used Date Smoking Tobacco: Never Assessed Comments Unknown Sex and Gender Information Value Date Recorded Sex Assigned at Not on file Legal Sex Female 1:18 PM CDT Gender Identity Not on file Sexual Orientation Not on file documented as of this encounter Miscellaneous Notes * Cerner Conversion Note - Sommer ProviderMD - 04/08/2018 2:35 PM INFORMATION SECURITY CONSULTANT [address] , [place] [address] Patient Copy Patient Information: Name: GI CRUZ Current Date: 04/08/2018 14:35:16 : 1980 Patient Address: [address] [place] [id number] Patient Attending Physician: YASMANY NEVAREZ MD-ORT Primary Care Provider: RUSS KAN MD-JENNA Primary Care Provider Discharge Diagnosis: Weight on Admission: 251 lb, 0 oz Comment: Follow-up Instructions: With: Address: When: YASMANY NEVAREZ [address] [place] [address], [address] [place] [address] Business (1) Within 1 to [...] any): Final Medication List: Other Medications biotin 83707 Oral Every Day. carvedilol (carvedilol 25 mg [...] and water are not available, use hand solution sales senior executive. ? Change your dressing as told by [...] even if your condition improves. ??? Take bjxh-cfi-awoames and prescription medicines only as told by [...] 08/31/2005 Document Revised: 10/19/2016 Document Reviewed: 08/29/2016 ElseVixely Inc Interactive Patient Education ? 2017 [employer]. What You Need to Know About [...] 01/30/2010 Document Revised: 10/04/2016 Document Reviewed: 10/19/2015 [employer] Interactive Patient Education ? 2017 [employer]. Myelogram, Care After Introduction Refer to [...] by your health care provider. ??? Take utuj-jxp-vjtxzpp and prescription medicines only as told by [...] are taking, including vitamins, herbs, eyedrops, and tyhu-yyv-lpdeuvw medicines and creams. ??? Previous problems you [...] 10/04/2004 Document Revised: 03/04/2015 Document Reviewed: 11/24/2015 [employer] Interactive Patient Education ? 2017 [employer]. CIGARETTE SMOKING: The facts are clear, cigarette smoking will shorten your life. Smoking can cause many illnesses along the way. As a healthcare provider, we recommend that you stop smoking. Assistance with quitting is available by contacting 3-146-AVZS-NOW. This is a free resource providing counseling, [...] Be sure to sign up for the [employer] patient portal, which gives you 17/09 access to your medical information ??? including these discharge instructions ??? using your computer, smartphone, or tablet. Just go to [employer] to get started. Questions? Call . [facility] would like to thank you for allowing us to assist you with your healthcare needs. NANCY Trujillo RACHEL A, (or farm loan representative) have received the above patient education materials/instructions and have verbalized understanding: Patient Signature _ Date/Time Patient Release Engineer Signature (if needed) Date/Time Clinician/Hospital Release Engineer Signature (if needed) Date/Time documented in this encounter Plan of Treatment Not on file documented as of this encounter Visit Diagnoses Not on filedocumented in this encounter
--- OUTSIDE RECORDS SUMMARY | 2025-01-14 06:31 | XMS_ITS | Clinical Summary ---
Author Organization Healthcare Address [address] [id number] Care Team Providers Care Global Regulatory Lead Name Role Phone Alena Reed RAZA Primary Care Provider [phone] Allergies Active Allergy Reactions Criticality Noted Date [...] 50-500 MG tablet sustained-release 24 hour 11/14/19 Active gabapentin (Neurontin) 600 MG tablet 11/11/19 Active ondansetron ODT (Zofran-ODT) 4 MG disintegrating tablet 11/24/19 Active Active Problems Problem Noted Date Diagnosed Date [...] Description 12/07/2024 8:20 AM EDT Office Visit [facility] [address] [address] Mei Jackson MD HFrEF (heart failure with reduced ejection fraction) (Primary Dx); ICD (implantable cardioverter-defibrilla tor) in place; NICM (nonischemic cardiomyopathy) (CMS/HCC); BMI 40.0-44.9, adult (CMS/HCC); Other fatigue 12/07/2024 Orders Only [facility] [address] [address] Tiffanie Macias HFrEF (heart failure with reduced ejection fraction) (Primary Dx) 12/07/2024 Travel 11/11/2024 11:45 AM EDT - 11/11/2024 1:00 PM EDT Surgery Cardiac Director Of Pharmacy [address] [place] [address] Mei Jackson MD Right heart catheterization [84136 (CPT )] 11/11/2024 9:38 AM EDT - 11/12/2024 2:00 AM EDT Hospital Encounter Cardiac Director Of Pharmacy [address] [place] [address] Mei Jackson MD HFrEF (heart failure with reduced ejection fraction) (CMS/HCC) Discharge Disposition: Home or Self Care 11/04/2024 Telephone [facility] [address] [address] Mei Jackson MD 10/30/2024 Telephone [facility] [address] [facility] [address] Sunitha Fleming RN 10/20/2024 Telephone [facility] [address] [address] January Lewis 10/19/2024 8:20 AM EDT Office Visit [facility] [address] [address] Mei Jackson MD HFrEF (heart failure with reduced ejection fraction) (CMS/HCC) (Primary Dx); ICD (implantable cardioverter-defibrilla tor) in place; NICM (nonischemic cardiomyopathy) (CMS/HCC); Syncope and collapse; Morbid obesity (CMS/HCC); Type 2 diabetes mellitus without complication, with long-term current use of insulin; Other fatigue 10/19/2024 Travel 10/15/2024 Telephone [facility] [address] [address] January Lewis from Last 3 Months Family [...] 12/07/2024 8:07 AM EDT Plan of Treatment Upcoming Encounters Date Type Department Care Team (Late st Contact Info) Description 04/15/2025 2:40 PM EST Office Visit [facility] [address] [facility]. [address] [place] [address] Mei Jackson MD [address] [place] [address] Health Maintenance Due Date Last Done Comments [facility]-Diabetes: Hemoglobin A1C 1980 [facility]-HIV Screening 1980 [facility]-/Child/Adol SDOH Screenings 1980 AET-IKOSD-67 Vaccine (#1) 10/26/1984 Diabetes: Dental Exam 10/26/1989 [...] ECG ADULT Routine 10/19/2024 8:42 AM EDT HEPATITIS C ANTIBODY W/REFLEX TO HCV QUANT PCR Routine 04/18/2017 12:17 PM EST from Last 3 Months or Most Recently Relevant to Health Maintenance Results * (ABNORMAL) POCT Co-Oximetry Mixed Venous (11/11/2024 12:00 PM EDT) POCT Oxyhemoglobin, Mixed Venous 64.9 % 11/11/2024 11:57 AM EDT HEALTH[facility]ARE [facility] Survey Supervisor ID Makenna Juarez 11/11/2024 11:57 AM EDT HEALTHCARE LAB Device ID [id number] 11/11/2024 11:57 AM EDT HEALTHCARE LAB POCT Sample Site PA 11/11/2024 11:57 AM EDT HEALTHCARE LAB POCT Total Hemoglobin 10.8(L) 11.2 - 15.7 g/dL 11/11/2024 11:57 AM EDT HEALTHCARE LAB 11/11/2024 12:0 0 PM EDT 11/11/2024 11:57 AM EDT us Mei Jackson MD LAB POINT OF CARE TEST DOCKED DEVICE UNSOLICITED RESULTS Final Result [facility] [address] [place] [address] * RIGHT HEART CATHETERIZATION (11/11/2024 11:57 AM [...] catheterization Access: Right Jugular vein 8 Fr Greenwood Sheath Procedure: After obtaining consent, the patient [...] was inserted through the needle, an 8Fr Greenwood sheath was inserted over the wire, subsequently blood was aspirated and the sheath was flushed. A 7.5 Lebanese [place]- Angela catheter was passed through the Greenwood sheath into the RA, RV and PA chambers along with obtaining measured pressures and PCWP. A small blood sample was obtained from the PA to calculate assumed Alexander cardiac output and index in addition to thermodilution technique. Ultimately, the Greenwood sheath was withdrawn while the patient was [...] Thermo CO: 6.8 L/min CI: 3.1 L/min/m2 GALLEY HAND: 0.42 W Resistance Thermo PVR: 1.6 SANCHEZ Thermo PVR: 129 (dyne x sec)/cm5 Hemodynamic Data Saturations Phase: Resting Saturations PA: 65 % Mei Jackson MD CV CARDIAC CATH PROCEDURES Final Result * ECG Adult (Now - Performed in your clinic) (10/19/2024 8:42 AM EDT) EKG DIAGNOSIS CLASS Abnormal MUSE ECG Ventricular Rate 82 BPM MUSE ECG Atrial Rate [address] Interval 142 ms MUSE ECG QRSD Interval 140 ms MUSE ECG QT Interval 432 ms MUSE ECG QTC Interval 504 ms MUSE ECG P [place] 75 degrees MUSE ECG R [place] 143 degrees MUSE ECG T Wave [place] 98 degrees MUSE ECG Diagnosis Atrial-sensed ventricular-p aced rhythm MUSE ECG Diagnosis Abnormal ECG MUSE ECG Diagnosis MUSE ECG Diagnosis Confirmed by Kenya Anton ([id number]) on 10/20/2024 4:06:01 PM MUSE ECG 10/19/2024 8:42 AM EDT 10/20/2024 4:06 PM EDT Mei Jackson MD ECG ORDERABLES Final Resu lt Performing Organization Address City/[facility] Co de Phone Number MUSE ECG * Hepatitis C Antibody (04/18/2017 12:17 PM EST) Hepatitis C Antibody NEGATIVE Reference Range: Negative SUNQUEST 04/18/2017 12:1 7 PM EST 04/18/2017 4:17 PM EST Historical Provider LAB BLOOD ORDERABLES Final R esult SUNQUEST from Last 3 Months or Most Recently Relevant to Health Maintenance Insurance Care Teams Global Regulatory Lead Relationship Specialty Start Date End Date Alena Reed APRN [address] [place] [address] PCP - General 10/19/24
--- OUTSIDE RECORDS SUMMARY | 2025-01-14 06:31 | XMS_ITS | Encounter Summary ---
Author Organization [facility] Address [address] [place] [address] Care Team Providers Care Curriculum Development Coordinator Name Role Phone Unavailable Primary Care Provider Unavailabl e Encounter Details Date Type Department Care Team (Late st Contact Info) Description 03/02/2013 Conversion Encounter [facility] HISTORICAL CONV [address] [place] [address] Interface, See Report Social History [...] See Report - 03/02/2013 12:00 AM EST DISH MACHINE OPERATOR-Oncology Services [address] [place] [address] Patient: JOYCELYN CRUZ MR #: [id number] : 1980 Date of Visit: 03/02 Referring Physician: Dictated By: Malcolm Nuñez MD Diagnosis: AUB FIBROIDS MORBID OBESITY H/O PULMONARY EMBOLI ( COUMADIN) Allergies: NKDA History of present illness: AUB SINCE 1998. SHE WENT 2 YRS WITH AMENORRHEA. SHE WENT TO DR. WOODS IN [place]. HE PUT HER ON BCP. HER MENSES [...]
--- OUTSIDE RECORDS SUMMARY | 2025-01-14 06:31 | XMS_ITS | Encounter Summary ---
Author Organization [employer] ([place], [place], [place], [place], [place]) Address [address] [place] [address] Care Team Providers Care Commercial Finance Analyst Name Role Phone Unavailable Primary Care Provider Unavailabl e Encounter Details Date Type Department Care Team (Late st Contact Info) Description 04/08/2018 Transcribed Document [facility] Family Medicine [facility] [place] [address] ProviderSommer MD [address] [place] [address] Social History Tobacco Use Types Packs/Day Years Used Date Smoking Tobacco: Never Assessed Comments Unknown Sex and Gender Information Value Date Recorded Sex Assigned at Not on file Legal Sex Female 1:18 PM CDT Gender Identity Not on file Sexual Orientation Not on file documented as of this encounter Miscellaneous Notes * Cerner Conversion Note - Sommer ProviderMD - 04/08/2018 1:56 PM MEDICARE SALES REPRESENTATIVE Nursing Discharge Summary Entered On: 04/08/2018 13:57 [...]
--- OUTSIDE RECORDS SUMMARY | 2025-01-14 06:31 | XMS_ITS | Encounter Summary ---
Author Organization Healthcare Address [address] [id number] Care Team Providers Care Wiring Technician Name Role Phone Eric Caraballo MD Primary Care Provider [phone] Alena Reed APRN Primary Care Provider [phone] Encounter Details Date Type Department Care Team (Late st Contact Info) Description 11/18/2023 Orders Only External Location [address] [place] [address] Candice Rebollar, FLOAT NURSE [address] [id number] Social History Tobacco Use Types Packs/Day Years [...] Description 04/15/2025 2:40 PM EST Office Visit [facility] [address] [facility] [place] [address] Mei Jackson MD [address] [place] [address] documented as of this encounter [...] documented as of this encounter Care Teams Wiring Technician Relationship Specialty Start Date End Date Eric Caraballo MD [address] [place] [address] PCP - General 07/08/20 10/18/24 Alena Reed APRN [address] [place] [address] PCP - General 10/19/24 documented as of this encounter
--- OUTSIDE RECORDS SUMMARY | 2025-01-14 06:31 | XMS_ITS | Encounter Summary ---
Author Organization [employer] ([place], [place], [place], [place], [place]) Address [address] [place] [address] Care Team Providers Care Python Consultant Name Role Phone Unavailable Primary Care Provider Unavailabl e Encounter Details Date Type Department Care Team (Late st Contact Info) Description 04/08/2018 Transcribed Document [facility] Family Medicine [facility] [place] [address] ProviderSommer MD [address] [place] [address] Social History Tobacco Use Types [...] - Sommer ProviderMD - 04/08/2018 8:22 AM PRODUCTION ADMINISTRATOR Discharge Instructions Entered On: 04/08/2018 8:23 EST [...] 04/08/2018 8:22 EST Electronically signed by [facility] Conversion Optics Test Technician Cerner at 06/14/2022 2:54 PM CDT documented in this encounter Plan of Treatment Not on file documented as of this encounter Visit Diagnoses Not on filedocumented in this encounter
--- OUTSIDE RECORDS SUMMARY | 2025-01-14 06:31 | XMS_ITS | Clinical Summary ---
Author Organization [facility] Address [address] [place] [address] Care Team Providers Care Boss Miner Name Role Phone Unavailable Primary Care Provider [...]
--- OUTSIDE RECORDS SUMMARY | 2025-01-14 06:31 | XMS_ITS | Clinical Summary ---
Author Organization [employer] ([place], [place], [place], [place], [place]) Address [address] [place] [address] Care Team Providers Care Paraprofessional Aide Teacher Name Role Phone Unavailable Primary Care Provider [...]
--- OUTSIDE RECORDS SUMMARY | 2025-01-14 06:31 | XMS_ITS | Encounter Summary ---
Author Organization [employer] ([place], [place], [place], [place], [place]) Address [address] [place] [address] Care Team Providers Care Top Polisher Name Role Phone Unavailable Primary Care Provider Unavailabl e Encounter Details Date Type Department Care Team (Late st Contact Info) Description 04/08/2018 Transcribed Document [facility] [place] [facility] [place] [address] ProviderSommer MD [address] [place] [address] Social History Tobacco Use Types Packs/Day Years Used Date Smoking Tobacco: Never Assessed Comments Unknown Sex and Gender Information Value Date Recorded Sex Assigned at Not on file Legal Sex Female 1:18 PM CDT Gender Identity Not on file Sexual Orientation Not on file documented as of this encounter Miscellaneous Notes * Cerner Conversion Note - Sommer ProviderMD - 04/08/2018 1:21 PM OUTREACH NURSE [address] , [place] [address] Patient Copy Patient Information: Name: GI CRUZ Current Date: 04/08/2018 13:21:48 : 1980 Patient Address: [address] [place] [phone] Patient Attending Physician: YASMANY NEVAREZ MD-ORT Primary Care Provider: RUSS KAN MD-JENNA Primary Care Provider Discharge Diagnosis: Weight on Admission: 251 lb, 0 oz Comment: Follow-up Instructions: With: Address: When: YASMANY NEVARZE [address] [place] [address], [address] [place] [address] Business (1) Within 1 to [...] any): Final Medication List: Other Medications biotin 49354 Oral Every Day. carvedilol (carvedilol 25 mg [...] and water are not available, use hand retail assistant store manager. ? Change your dressing as told by [...] even if your condition improves. ??? Take bemu-aun-fyhuadn and prescription medicines only as told by [...] 08/31/2005 Document Revised: 10/19/2016 Document Reviewed: 08/29/2016 Elseapta.me Interactive Patient Education ? 2017 [employer] What You Need to Know About [...] 01/30/2010 Document Revised: 10/04/2016 Document Reviewed: 10/19/2015 [employer] Interactive Patient Education ? 2017 [employer] Myelogram, Care After Introduction Refer to [...] by your health care provider. ??? Take hopl-tcv-neiumof and prescription medicines only as told by [...] are taking, including vitamins, herbs, eyedrops, and dhkp-rkf-ltxzwsy medicines and creams. ??? Previous problems you [...] 10/04/2004 Document Revised: 03/04/2015 Document Reviewed: 11/24/2015 [employer] Interactive Patient Education ? 2017 [employer] CIGARETTE SMOKING: The facts are clear, cigarette smoking will shorten your life. Smoking can cause many illnesses along the way. As a healthcare provider, we recommend that you stop smoking. Assistance with quitting is available by contacting 7-772-HKCN-NOW. This is a free resource providing counseling, [...] Be sure to sign up for the [employer] patient portal, which gives you 17/09 access to your medical information ??? including these discharge instructions ??? using your computer, smartphone, or tablet. Just go to [employer] to get started. Questions? Call . [facility] would like to thank you for allowing us to assist you with your healthcare needs. NANCY Trujillo RACHEL A, (or assistance representative) have received the above patient education materials/instructions and have verbalized understanding: Patient Signature _ Date/Time Patient Financial Services Assistant Signature (if needed) Date/Time Clinician/Hospital Financial Services Assistant Signature (if needed) Date/Time documented in this encounter Plan of Treatment Not on file documented as of this encounter Visit Diagnoses Not on filedocumented in this encounter
--- OUTSIDE RECORDS SUMMARY | 2025-01-14 06:31 | XMS_ITS | Encounter Summary ---
Author Organization [employer] ([place], [place], [place], [place], [place]) Address [address] [place] [address] Care Team Providers Care Disk Recoater Name Role Phone Unavailable Primary Care Provider Unavailabl e Encounter Details Date Type Department Care Team (Late st Contact Info) Description 04/08/2018 Transcribed Document [facility] [place] [facility] [place] [address] ProviderSommre MD [address] [place] [address] Social History Tobacco Use Types Packs/Day Years Used Date Smoking Tobacco: Never Assessed Comments Unknown Sex and Gender Information Value Date Recorded Sex Assigned at Not on file Legal Sex Female 1:18 PM CDT Gender Identity Not on file Sexual Orientation Not on file documented as of this encounter Miscellaneous Notes * Cerner Conversion Note - Sommer ProviderMD - 04/08/2018 8:23 AM [employer] [address] , [place] [address] Patient Copy Patient Information: Name: GI CRUZ Current Date: 04/08/2018 08:23:47 : 1980 Patient Address: [address] [place] [id number] Patient Attending Physician: YASMANY NEVAREZ MD-ORT Primary Care Provider: RUSS KAN MD-JENNA Primary Care Provider Discharge Diagnosis: Comment: Follow-up Instructions: With: Address: When: YASMANY NEVAREZ [address] [facility], 2[address] [place] [address] Business (1) Within 1 to 2 weeks Comments: DIRECTED. BRING CD DISC TO APPT Type Location Start Finish State xx [facility]30 AM 10:[address] [facility] AM 10:30 AM Confirmed < [...] and water are not available, use hand electrical appliance preparer. ? Change your dressing as told by [...] even if your condition improves. ??? Take krdy-kpw-usvigwt and prescription medicines only as told by [...] 08/31/2005 Document Revised: 10/19/2016 Document Reviewed: 08/29/2016 ElseX[employer]IM[employer] Interactive Patient Education ? 2017 [employer] What You Need to Know About [...] 01/30/2010 Document Revised: 10/04/2016 Document Reviewed: 10/19/2015 ElseXGIMI Interactive Patient Education ? 2017 [employer] Inc. Myelogram, Care After Introduction Refer to [...] by your health care provider. ??? Take knht-zen-wmqkznn and prescription medicines only as told by [...] are taking, including vitamins, herbs, eyedrops, and xulv-mxt-lrbfeel medicines and creams. ??? Previous problems you [...] 10/04/2004 Document Revised: 03/04/2015 Document Reviewed: 11/24/2015 [employer] Interactive Patient Education ? 2017 [employer]. CIGARETTE SMOKING: The facts are clear, cigarette smoking will shorten your life. Smoking can cause many illnesses along the way. As a healthcare provider, we recommend that you stop smoking. Assistance with quitting is available by contacting 6-502-YOQW-NOW. This is a free resource providing counseling, [...] Be sure to sign up for the [employer] patient portal, which gives you 17/09 access to your medical information ??? including these discharge instructions ??? using your computer, smartphone, or tablet. Just go to [employer] to get started. Questions? Call . [facility] would like to thank you for allowing us to assist you with your healthcare needs. NANCY Trujillo RACHEL A, (or customer operations representative) have received the above patient education materials/instructions and have verbalized understanding: Patient Signature _ Date/Time Patient Transportation Maintenance Worker Signature (if needed) Date/Time Clinician/Hospital Transportation Maintenance Worker Signature (if needed) Date/Time Electronically signed by Julio, [facility] Conversion Blood Bank Laboratory Technician Cerner at 06/14/2022 3:09 PM CDT documented in this encounter Plan of Treatment Not on file documented as of this encounter Visit Diagnoses Not on filedocumented in this encounter
--- OUTSIDE RECORDS SUMMARY | 2025-01-14 06:31 | XMS_ITS | Encounter Summary ---
Author Organization [facility] ystem Address [address] [place] [address] Care Team Providers Care Broadloom Weaver Name Role Phone Unavailable Primary Care Provider Unavailabl e Encounter Details Date Type Department Care Team (Late st Contact Info) Description 04/13/2013 Conversion Encounter [facility] HISTORICAL CONV [address] [place] [address] Interface, See Report Social History [...] See Report - 04/13/2013 12:00 AM EST FIELD RECRUITER-Oncology Services [address] [place] [address] Patient: JOYCELYN CRUZ MR #: [id number] : 1980 Date of Visit: 04/13/2013 Referring [...]
--- OUTSIDE RECORDS SUMMARY | 2025-01-14 06:31 | XMS_ITS | Encounter Summary ---
Author Organization [facility] ystem Address [address] [place] [address] Care Team Providers Care Glass Cleaning Machine Tender Name Role Phone Unavailable Primary Care Provider Unavailabl e Encounter Details Date Type Department Care Team (Late st Contact Info) Description 03/19/2013 Conversion Encounter [facility] HISTORICAL CONV [address] [place] [address] Interface, See Report Social History [...] See Report - 03/19/2013 6:19 AM EST [place] [address] DISCHARGE SUMMARY PATIENT NAME: GI CRUZ [address] H[facility] NO: [id number] DATE OF : 1980 DATE OF ADMISSION: [...] and was seen by Dr. Sun in [place] who put her on oral contraceptive pills. The patient continued to have irregular menses and was later seen in [place] where a transvaginal ultrasound was performed showing [...] to do in Dr. Caraballo' office in [place]. Dr. Eric Caraballo in [place], [place] is her family medicine doctor who [...] physician, which is Dr. Eric Caraballo in [place], [place], who has previously been following her PT and INR and making adjustments with her Coumadin. The patient is aware that she will need to follow-up with him in one week. 3. The patient will have her PT and INR drawn on 03/23/2013. Syl Carlin, OB Resident* Dictating for: Jose cJ M.D. AB/HE/margie Voice Rec. ID #[id number] Voice Original ID #[id number] Doc ID #[id number] Rev. #0 cc: Jose Jc M.D.* Eric Caraballo M.D.* DO NOT TEXT EDIT THIS LINE :CDS:862: Authenticated by JOSE JC MD On 04/27/2013 09:58:46 AM Authenticated by JOSE JC MD On 04/28/2013 01:24:21 PM documented in this encounter OR Notes * Op Note - Interface, See Report - 03/19/2013 6:19 AM EST [place] [address] OPERATIVE REPORT PATIENT NAME: GI CRUZ [address] [facility] NO: [id number] DATE OF : 1980 DATE OF OPERATION: [...] She then went to Dr. Sun in [place] who put her on oral contraceptive pills. Her menses were still irregular. The patient then was seen in [place] for similar complaints. The patient was started [...] with definitive therapy. SURGEON: Jose Jc M.D. 6TH GRADE TEACHER: Syl Carlin M.D., Resident ANESTHESIA: General endotracheal. [...] transitioned to dorsal lithotomy position using the [facility] stirrups. The patient was then [...] was made hemostatic with 4-0 Vicryl in npblwe-we-jouzh fashion X2. Also, there was a small [...] Carlin M.D., Resident ED/AB/rxmjh Voice Rec. ID #[id number] Original Voice Rec. ID #[id number] Doc ID #[id number] Revision Count: 0 cc: Jose Jc M.D.* <start header> [place] [address] OPERATIVE REPORT PATIENT NAME: GI CRUZ [address] [facility] NO: [id number] DATE OF : 1980 <end header> DO NOT TEXT EDIT THIS LINE :VETERINARY ASSISTANT TECHNICIAN:[id number]: Authenticated by JOSE JC MD On 03/19/2013 [...] EST) PTT 29 24 - 31 Seconds [facility] Comment: US by IF @ 03/20/2013 09:23 PTT = The equivalent PTT values for the therapeutic range of heparin levels at 0.3 to 0.5 U/ml are 45 to 60 seconds. PTT = The equivalent PTT values for the therapeutic range of heparin levels at 0.3 to 0.5 U/ml are 45 to 60 seconds. Blood specimen (specimen) 03/20/2013 8:51 AM EST Narrative [facility] - 03/20/2013 9:23 AM EST Specimen Type: Blood us Jose Jc MD LAB BLOOD ORDERABLES Final Result [facility] [address] [place] [address], * Protime-INR (03/20/2013 8:51 AM EST) Protime 11.5 9.6 - 11.5 Seconds [facility] INR 1.07 [facility] Comment: US by IF @ 03/20/2013 09:23 Therapeutic Ranges for INR: 2.0-3.0 (PT 20-30) 2.5-3.5 (PT 25-34) Blood specimen (specimen) 03/20/2013 8:51 AM EST Narrative [facility] - 03/20/2013 9:23 AM EST Specimen Type: Blood Jose Jc MD LAB BLOOD ORDERABLES Final Result [facility] [address] [place] [address], * (ABNORMAL) Basic metabolic panel (03/20/2013 6:00 AM EST) Glucose 134(H) 70 - 100 mg/dL [facility] BUN 10 6 - 20 mg/dL [facility] Creatinine 0.8 0.6 - 1.3 mg/dL [facility] Sodium 136 136 - 145 mmol/L [facility] Potassium 3.6 3.4 - 5.4 mmol/L [facility] Chloride 100 98 - 107 mmol/L [facility] CO2 26 20 - 31 mmol/L [facility] Calcium 9.2 8.7 - 10.4 mg/dL [facility] Est GFR by Clearance 88 ml/min/1.7 32 [facility] Comment: DF by IF @ 03/20/2013 06:43 National Kidney Foundation Guidelines Stage Description GFR 1 Normal or High 90+ 2 Mild decrease 60-89 3 Moderate decrease 30-59 4 Severe decrease 15-29 5 Kidney failure <15 Anion Gap 9 3 - 11 mmol/L [facility] Blood specimen (specimen) 03/20/2013 6:00 AM EST Narrative [facility] - 03/20/2013 7:02 AM EST Specimen Type: Blood us Syl C Carlin DO LAB BLOOD ORDERABLES Final R esult Performing Organization Address [facility] [place] [address], * (ABNORMAL) CBC (No diff) (03/20/2013 6:00 AM EST) WBC 16.92(H) 3.50 - 10.80 K/[facility] RBC 4.28 3.89 - 5.14 /[facility] Hemoglobin 11.6 11.5 - 15.5 g/dL [facility] Hematocrit 35.4 34.5 - 44.0 % [facility] MCV 82.7 80.0 - 99.0 fL [facility] MCH 27.1 27.0 - 31.0 pg [facility] MCHC 32.8 32.0 - 36.0 g/dL [facility] RDW-CV 14.1 11.3 - 14.5 % [facility] Platelets 332 150 - 450 K/[facility] Blood specimen (specimen) 03/20/2013 6:00 AM EST [facility] - 03/20/2013 6:22 AM EST Specimen Type: Blood Syl Carlin DO LAB BLOOD ORDERABLES Final R esult Performing Organization Address City/[facility] Co de Phone Number [facility] [address] [place] [address], * Converted Surgical Pathology (03/19/2013 6:19 AM EST) 03/19/2013 6:19 AM EST [facility] - 03/20/2013 12:46 [place] [address] SURGICAL PATHOLOGY REPORT Patient Name: GI CRUZ MR#: [id number] : 1980 Gender: F Ordering Physician: JOSE [...] nodule measuring 2.3 cm in greatest dimension. Marine Architect sections are submitted. Summary of sections: A - frozen section residue; B - anterior and posterior cervix; C-D - anterior endomyometrium; E-F - posterior endomyometrium; G - intramural nodule. M/sk Microscopic Description Sections show secretory endometrium with intraluminal secretions. 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 No other abnormalities are noted. JFJ/sk Previous Pertinent History [id number], 12/15/12: ENDOMETRIUM, BIOPSY: Negative for endometrial functionalis. Abundant endocervical type epithelium. (FLP) [id number],12/08/12: PAP SMEAR: Negative for intraepithelial lesion or malignancy. (PCL) Procedures/Addenda us See Report Interface PATHOLOGY/CYTOLOGY ORDERABL ES Final Result Performing Organization Address [facility]/[place] [address], * SCANNED EKG (03/19/2013) [facility] ECG ORDERABLES Final Result * (ABNORMAL) APTT (03/18/2013 10:40 AM EST) PTT 37(H) 24 - 31 Seconds [facility] Comment: US by IF @ 03/18/2013 11:21 PTT = The equivalent PTT values for the therapeutic range of heparin levels at 0.3 to 0.5 U/ml are 45 to 60 seconds. PTT = The equivalent PTT values for the therapeutic range of heparin levels at 0.3 to 0.5 U/ml are 45 to 60 seconds. Blood specimen (specimen) 03/18/2013 10:40 AM EST Narrative [facility] - 03/18/2013 11:21 AM EST Specimen Type: Blood Jose Jc MD LAB BLOOD ORDERABLES Final Result Performing Organization Address [facility] [place] [address], * (ABNORMAL) Protime-INR (03/18/2013 10:40 AM EST) Protime 12.5(H) 9.6 - 11.5 Seconds [facility] INR 1.16 [facility] Comment: US by IF @ 03/18/2013 11:21 Therapeutic Ranges for INR: 2.0-3.0 (PT 20-30) 2.5-3.5 (PT 25-34) Blood specimen (specimen) 03/18/2013 10:40 AM EST Narrative [facility] - 03/18/2013 11:21 AM EST Specimen Type: Blood Jose Jc MD LAB BLOOD ORDERABLES Final Result [facility] [address] [place] [address], * hCG, quantitative, (03/18/2013 10:40 AM EST) HCG Quantitative <5.0 mIU/mL [facility] Comment: DF by IF @ 03/18/2013 11:23 HCG Expected Values: Non females less than 5 mIU/mL Males less than 5 mIU/mL 0-1 Weeks Gestation 5-50 1-2 Weeks Gestation 50-500 2-3 Weeks Gestation 100-5000 3-4 Weeks Gestation [id number] 4-5 Weeks Gestation 1000-87305 5-6 Weeks Gestation [id number] 6-8 Weeks Gestation [id number] 2-3 Months Gestation [id number] Note: If a value is between 5-25 mIU/mL recommend repeat testing and clinical correlation. Blood specimen (specimen) 03/18/2013 10:40 AM EST [facility] - 03/18/2013 11:23 AM EST Specimen Type: Blood Jose Jc MD LAB BLOOD ORDERABLES Final Result Performing Organization Address [facility] Co de Phone Number [facility] [address] [place] [address], * Type and screen (03/18/2013 10:40 AM EST) ABORh O Rh Positive [facility] Antibody Screen Negative [facility] Blood specimen (specimen) 03/18/2013 10:40 AM EST [facility] - 03/18/2013 11:49 AM EST Specimen Type: Blood Jose Jc MD BLOOD BANK TEST ORDERABLES Final Result Performing Organization Address City/[facility]/ZIP Co de Phone Number [facility] [address] [place] [address], * (ABNORMAL) Comprehensive metabolic panel (03/18/2013 10:40 AM EST) Glucose 86 70 - 100 mg/dL [facility] BUN 11 6 - 20 mg/dL [facility] Creatinine 0.6 0.6 - 1.3 mg/dL [facility] Sodium 139 136 - 145 mmol/L [facility] Potassium 3.9 3.4 - 5.4 mmol/L [facility] Chloride 102 98 - 107 mmol/L [facility] CO2 28 20 - 31 mmol/L [facility] Calcium 9.8 8.7 - 10.4 mg/dL [facility] Alkaline Phosphatase 126(H) 25 - 100 Units/L [facility] AST (SGOT) 28 8 - 33 Units/L [facility] ALT (SGPT) 38 7 - 40 Units/L [facility] Total Bilirubin 0.7 0.3 - 1.2 mg/dL [facility] Total Protein 8.4(H) 6.4 - 8.3 g/dL [facility] Albumin 4.6 3.4 - 4.8 g/dL [facility] eGFR 126 ml/min/1.7 32 [facility] Comment: DF by IF @ 03/18/2013 11:23 National Kidney Foundation Guidelines Stage Description GFR 1 Normal or High 90+ 2 Mild decrease 60-89 3 Moderate decrease 30-59 4 Severe decrease 15-29 5 Kidney failure <15 Anion Gap 9 3 - 11 mmol/L [facility] Blood specimen (specimen) 03/18/2013 10:40 AM EST Narrative [facility] - 03/18/2013 11:23 AM EST Specimen Type: Blood us Jose Jc MD LAB BLOOD ORDERABLES Final Result [facility] [address] [place] [address], * (ABNORMAL) CBC and Differential (03/18/2013 10:40 AM EST) WBC 10.75 3.50 - 10.80 [facility] RBC 5.03 3.89 - 5.14 [facility] Hemoglobin 13.4 11.5 - 15.5 g/dL [facility] Hematocrit 41.2 34.5 - 44.0 % [facility] MCV 81.9 80.0 - 99.0 fL [facility] MCH 26.6(L) 27.0 - 31.0 pg [facility] MCHC 32.5 32.0 - 36.0 g/dL [facility] RDW-CV 13.7 11.3 - 14.5 % [facility] Platelets 372 150 - 450 [facility] Neutrophils Absolute 7.20 1.50 - 8.30 [facility] Lymphocytes Absolute 2.43 0.60 - 4.80 [facility] Monocytes Absolute 0.76 0.00 - 1.00 [facility] Eosinophils Absolute 0.29 0.10 - 0.30 [facility] Basophils Absolute 0.03 0.00 - 0.20 [facility] Neutrophil Rel % 66.9 41.0 - 71.0 % [facility] Lymphocyte Rel % 22.6(L) 24.0 - 44.0 % [facility] Monocyte Rel % 7.1 0.0 - 12.0 % [facility] Eosinophil Rel % 2.7 0.0 - 3.0 % [facility] Basophil Rel % 0.3 0.0 - 1.0 % [facility] Immature Granulocyte Rel % 0.4 0.0 - 0.6 % [facility] Blood specimen (specimen) 03/18/2013 10:40 AM EST Narrative [facility] - 03/18/2013 11:06 AM EST Specimen Type: Blood us Jose Jc MD LAB BLOOD ORDERABLES Final Result Performing Organization Address City/State/[facility] Co de Phone Number [facility] [place] [address], documented in this encounter Visit Diagnoses Not on filedocumented in this encounter
--- OUTSIDE RECORDS SUMMARY | 2025-01-14 06:32 | XMS_ITS | Encounter Summary ---
Author Organization Healthcare Address [address] [place] [address] Care Team Providers Care Sand Mixer Name Role Phone Alena Reed RAZA Primary Care Provider +1- [phone] Reason for Referral * Consultation (Routine) - Authorized Specialty Diagnoses / Procedures Referred By Ravinder cruz Referred To Contact Cardiac Rehabilitation Diagnoses HFrEF (heart failure with reduced ejection fraction) Mei Jackson MD [address] [place] [address] Phone: tel: fax: [facility] [address] [facility], [address] [place] [address] Phone: tel: fax: Referral ID Status Reason Start Date Expiration Date Visits Requested Visits Authorized [id number] Authorized Consult and Treat 12/07/2024 06/08/2026 1 1 Encounter Details Date Type Department Care Team (Late st Contact Info) Description 12/07/2024 Orders Only [facility] [place] [address] [place] [address] Tiffanie Macias HFrEF (heart failure with reduced [...] hopeless Not at all 11/25 8:21 AM Yenny Mondragon Patient Health Questionnaire-2 Score 0 11/25 8:21 AM Yenny Mondragon * Question Answer [...] referral to closest facility to her home, [facility]. [place] will contact Ms. Smith to discuss and schedule. Written/Dicated by Tiffanie Macias on 12/07/24 at 1:32 PM. documented in this encounter Plan of Treatment Upcoming Encounters Date Type Department Care Team (Late st Contact Info) Description 04/15/2025 2:40 PM EST Office Visit [facility] [place] [address] [facility] [place] [address] Mei Jackson MD [address] [place] [address] Scheduled Referrals Name Type Priority Associated Diagnoses Order Schedule Ambulatory referral to Cardiac Rehab Outpatient Referral Routine HFrEF (heart failure with reduced ejection fraction) 1 Occurrences starting 12/07/2024 until 12/07/2025 documented as of this encounter Visit Diagnoses Diagnosis HFrEF (heart failure with reduced ejection fraction)- Primary documented in this encounter Additional Health Concerns Assessment Noted Time PHQ-9 Depression Total Score: 0 12/08/19 25 8:21 AM EDT A fall risk assessment has been complete d for the patient 12/07/2024 8:21 AM EDT A Body Mass Index follow-up plan has been documented for the patient 12/07/2024 9:11 AM EDT documented as of this encounter Care Teams Sand Mixer Relationship Specialty Start Date End Date Alena Reed APRN [address] [place] [address] PCP - General 10/19/24 documented as of this encounter
--- OUTSIDE RECORDS SUMMARY | 2025-01-14 06:32 | XMS_ITS | Encounter Summary ---
Author Organization Healthcare Address [address] [place] [address] Care Team Providers Care Tandem Mill Operator Name Role Phone Alena Reed PUBLIC AREA SUPERVISOR Primary Care Provider +1- [phone] Encounter Details Date Type Department Care Team [...] EDT Yenny Galeano Feeling tired or having little energy Not at all 8:21 AM EDT Yenny Galeano Poor appetite [...] 8:21 AM HET Yenny Galeano Patient Health Questionnaire-9 Score 0 11/25 8:21 AM EDT Yenny Galeano * How [...] Description 04/15/2025 2:40 PM EST Office Visit [facility] [place] [address] [facility] [place] [address] Mei Jackson MD [address] [place] [address] documented as of this encounter Visit Diagnoses [...] documented as of this encounter Care Teams Tandem Mill Operator Relationship Specialty Start Date End Date Alena Reed APRN [address] [place] [address] PCP - General 10/19/24 documented as of this encounter
== END ==
PROVIDERS: PCP Nurse Practitioner Family; Visit Provider Specialist
DX: G47.33 Obstructive sleep apnea (adult) (pediatric) (principal); G47.36 Sleep related hypoventilation in conditions classified elsewhere; E66.01 Morbid (severe) obesity due to excess calories; M19.90 Unspecified osteoarthritis, unspecified site
CPT/HCPCS: G0399